=== PATIENT | male | born 1945 | race Caucasian/White ===

== ENCOUNTER → 2016-06-06 | Outpatient (CLI) | payer OTHER ==
[~2016-06-06] MED LIST: ALL300 PO; ASPI-435 PO; CINN1CAP2 PO; ELQ25 PO; FELO10TA PO; FENO67CA2 PO; ISOS30TA3 PO; LISI40TA PO; LPR100 PO; LVMIPEN SC; MULT-845 PO; NSP/500 PO; OMEG10007 PO; VITA1TAB4 PO; vitamin e PO
[2016-06-06 12:43] LABS: HEMATOCRIT 38.5 % (42-52); MEAN PLATELET VOLUME 10.9 fL (7.4-10.4); PLATELET COUNT 143 K/uL (130-400); RED BLOOD COUNT 4.23 M/uL (4.7-6.1); WHITE BLOOD COUNT 4.54 K/uL (4.8-10.8)
[2016-06-06 13:04] LABS: BLOOD UREA NITROGEN 44 mg/dl (7-18); BUN/CREATININE RATIO 20.9 (10-20); CALCIUM 9.1 mg/dl (8.5-10.1); CARBON DIOXIDE 23 mmol/L (21-32); CHLORIDE 106 mmol/L (98-107); GLUCOSE 106 mg/dl (70-99); PHOSPHORUS 3.3 mg/dl (2.5-4.9); POTASSIUM 4.2 mmol/L (3.5-5.1); SODIUM 142 mmol/L (136-145)
[2016-06-06 13:13] LABS: URINE APPEARANCE CLEAR (CLEAR); URINE BILIRUBIN NEG (NEG); URINE COLOR YELLOW; URINE NITRITE NEG (NEG); URINE PH 5.5 (4.5-7.5); URINE SPECIFIC GRAVITY 1.012 (1.000-1.030); UROBILINOGEN NEG (NEG)
[2016-06-06 13:21] LABS: MANUAL MICROSCOPIC REQUIRED? NO; REVIEW REQ? NO
[2016-06-06 13:33] LABS: URINE PROTIEN/CREAT RATIO 1.3 (0-0.2); URINE TOTAL PROTEIN 127.3 mg/dl (0-11.9)
== END | disposition home or self-care (01) ==
LOC: C.LABPVFM 07:58
PROVIDERS: ATTEND Internal Medicine Nephrology
DX: N18.3 Chronic kidney disease, stage 3 (moderate) (principal); R80.9 Proteinuria, unspecified; N25.81 Secondary hyperparathyroidism of renal origin; D63.8 Anemia in other chronic diseases classified elsewhere

== ENCOUNTER 2016-06-23 06:09 | Observation (INO) | payer OTHER ==
[~2016-06-23] VITALS: Ht 172.7 cm; Wt 116.8 kg
[~2016-06-23 06:09] MED LIST changes: +CEFAZOLIN 1000MG/55 ML D5W IV SCH; -CINN1CAP2 PO; -ELQ25 PO; -FENO67CA2 PO; -ISOS30TA3 PO; -LISI40TA PO; -OMEG10007 PO; -VITA1TAB4 PO; -vitamin e PO
[2016-06-23] MEDS ORDERED: LISI40TA PO (06:55)
[2016-06-23] MEDS ORDERED: OMEG10007 PO (06:55)
[2016-06-23] MEDS ORDERED: CINN1CAP2 PO (06:55)
[2016-06-23] MEDS ORDERED: vitamin e PO (06:55)
[2016-06-23] MEDS ORDERED: FENO67CA2 PO (06:55)
[2016-06-23] MEDS ORDERED: ISOS30TA3 PO (06:55)
[2016-06-23 07:00] VITALS: BP 109/73; PULSE 50; TEMP 36.7; O2SAT 98; Ht 172.7 cm; Wt 116.8 kg
[2016-06-23] MEDS ORDERED: LIDOCAINE HCL 1% 20 ML VIAL ONE (07:29)
[2016-06-23] MEDS ORDERED: BACITRACIN 50000 UNIT VIAL ONE (07:29)
[2016-06-23] MEDS ORDERED: BACITRACIN OINT 0.9 GM PKT ONE (07:29)
[2016-06-23] MEDS ORDERED: MIDAZOLAM HCL 5 MG/ML 1 ML VIAL ONE ×2 (08:04→09:43)
[2016-06-23] MEDS ORDERED: FENTANYL CITRATE INJ 50 MCG/1 ML 2 ML VIAL ONE ×2 (08:04→09:17)
--- NOTE | 2016-06-23 08:07 | History & Physical Bridge Note ---
H&P Re-Evaluation Bridge Note: I have examined the patient, reviewed the History & Physical and in the interval since the performance of the History & Physical I have noted the following changes of clinical significance: No changes noted. I reviewed the indications, procedure, risks and alternatives of dual pacer implant and loop explant with patient and his son(?) and they understand and agree to proceed. Consent obtained.
--- NOTE | 2016-06-23 08:07 | Procedure Note ---
Pre-Mod Sedation Assessment General Date of Moderate Sedation: Jun 23, 2016. Vital Signs: Vital Signs Past 12 Hours Date Time Temp Pulse Resp B/P Pulse Ox O2 Delivery O2 Flow Rate FiO2 06/23/16 07:00 36.7 50 20 109/73 98 Room Air Review Cardiovascular: regular rate, rhythm Abdomen: normal bowel sounds Lungs: lungs clear Pre-Sedation Airway Assessment Oral Cavity: Dentures Smoking Status: Never Smoker Procedure Planning Contraindications-for Mod Sed: None Yes Notes The planned sedation has been discussed with the patient and consent obtained. I have identified the patient, determined the appropriateness of sedation and have assessed the patient immediately prior to the procedure. All medicine(s) and interventions are by my order.
[2016-06-23] MEDS ORDERED: KEFZOL SPECIAL PROCEDURE STOCK 1 GM ADDVIAL IV ONE (08:20)
--- NOTE | 2016-06-23 11:13 | Procedure Note ---
Post-Mod Sedation Assessment General Date of Moderate Sedation Jun 23, 2016. Vital Signs: Vital Signs Past 12 Hours Date Time Temp Pulse Resp B/P Pulse Ox O2 Delivery O2 Flow Rate FiO2 06/23/16 10:45 50 16 134/74 95 Room Air 06/23/16 10:30 50 16 131/69 95 Room Air 06/23/16 07:00 36.7 50 20 109/73 98 Room Air Review - Discharge Criteria Vital Signs Stable: Yes Alert/Oriented/Conversant: Yes Returned to Baseline Mental St: Yes Nausea Absent/Minimal: Yes Pain/Discomfort/Absent/Minimal: Yes Normal/Baseline Respirations: Yes Active Bleeding?: No
[2016-06-23 11:15] VITALS: BP 132/67; PULSE 49; TEMP 36.4; O2SAT 95
[2016-06-23] MEDS ORDERED: KETOROLAC TROMETHAMINE 10 MG TAB PO PRN (11:15)
[2016-06-23] MEDS ORDERED: ACETAMINOPHEN 325 MG TAB PO PRN (11:15)
--- NOTE | 2016-06-23 11:23 | Cardiology Procedure Brief Nt ---
Preliminary Cardiology Note Procedure Date Jun 23, 2016. Pre-Procedure Diagnosis Mobitz 2 AV block Post-Procedure Diagnosis same Procedure(s) Performed Left subclavian venogram Dual chamber pacemaker implantation Loop recorder explantation Fast Food Attendant Dr. Prieto Licensed Psychologist Manager(s) none Estimated Blood Loss 50 cc Preliminary Findings Difficult access, required left subclavian venogram. Good lead position and measurements. Recommendations Monitor overnight Specimens Old loop recorder, return to Medtronic Anesthesia local with sedation Complication(s) None Disposition PCU
[2016-06-23 11:30] VITALS: BP 129/67; PULSE 50; O2SAT 95
[2016-06-23] MEDS ORDERED: ALLOPURINOL 300 MG TAB PO SCH (12:00)
[2016-06-23] MEDS ORDERED: IV FLUIDS COMPLETED PRN (12:15)
[2016-06-23] MEDS ORDERED: DEXTROSE 50% 50 ML SYR IV PRN (12:30)
[2016-06-23] MEDS ORDERED: GLUCOSE 10 TABS/TUBE PO PRN (12:30)
[2016-06-23] MEDS ORDERED: GLUCOSE 40% GEL 15 GM TUBE PO PRN (12:30)
[2016-06-23] MEDS ORDERED: GLUCAGON FOR INJ 1 MG VIAL SQ PRN (12:30)
[2016-06-23] MEDS: CEFAZOLIN IV 1,000 MG in DEXTROSE 5% 50ML 50 ML IV SCH ×2 (14:06→22:13)
--- NOTE | 2016-06-23 14:06 | OPERATIVE REPORT ---
DATE OF OPERATION: 06/23/2016 PREOPERATIVE DIAGNOSIS: 1. Mobitz II AV block. 2. Syncope. POSTOPERATIVE DIAGNOSIS: Same. PROCEDURE: 1. Left subclavian venogram. 2. Dual chamber pacemaker implantation. 3. Loop recorder explantation. SURGEON: Adelfo Prieto M.D. ANESTHESIA: Local with sedation. HISTORY OF PRESENT ILLNESS: This is a 71-year-old male with a history of hypertension, hyperlipidemia, first degree AV block and a rate related bundle branch block. He also has a hypertrophic cardiomyopathy and had syncope in September 2015. With uncertainty as to the cause of his syncope and various possibilities a loop recorder was implanted. He had been doing well with no recurrent symptoms but on routine loop recorder interrogation was noted to have several pauses due to complete heart block lasting in 1 case 4 seconds and another 9 seconds. This was consistent with high grade AV block and therefore it was felt that he should have a pacemaker implanted. After obtaining informed consent for the procedure, he was brought to the laboratory on the morning of 06/23/2016 being NPO after midnight. He was identified in the laboratory, prepped and draped in standard sterile manner for a left-sided pacemaker implantation. The left prepectoral region was anesthetized with 1% lidocaine local anesthetic and left subclavian venipuncture was attempted. This was unsuccessful; however, therefore dye was injected via the left arm IV site to opacify the left subclavian vein. Despite that and what appeared to be an appropriate angle for venipuncture the left subclavian artery was entered. Pressure was held for 15 minutes with no evidence of bleeding or hematoma. The area was infiltrated with 1% lidocaine local anesthetic and a 6 cm incision was made parallel to the left clavicle and 2 cm below it and carried down to the anterior pectoralis fascia. A pacemaker pocket was formed by blunt dissection anterior to the pectoralis fascia and a bacitracin-soaked sponge (50,000 units in 50 mL normal saline solution) was placed in the pocket. Venopuncture was then performed through the implant site successfully and a guidewire placed through the left subclavian vein into the superior vena cava. An 8-Malaysian Medtronic lead introducer was placed over the guidewire into the left subclavian vein, the dilator and guidewire were removed and a bipolar active fixation steroid-tipped ventricular lead was advanced through the introducer into the superior vena cava. The guidewire was placed through the introducer and introducer stripped away from lead and guidewire. Using a curved stylette, the ventricular lead was advanced through the right ventricular outflow tract into the pulmonary artery and then using a straight stylette was positioned in the right ventricular apex. Once in position, the ventricular pacing threshold was evaluated in bipolar configuration at a pulse width of 0.5 milliseconds. The final ventricular pacing threshold was 1.1 volts with a current of 1.4 milliamp, 5-volt lead impedance was 1077 ohms and R-waves were sensed at 4.5 millivolts. Diaphragmatic pacing was not present with a 10 volt bipolar output. Once the ventricular lead was in position another 8-[place]aysian Medtronic lead introducer was placed over the guidewire into the left subclavian vein, the dilator and guidewire were removed and a bipolar active fixation steroid-tipped atrial lead was advanced through the introducer into the superior vena cava. The guidewire was placed through the introducer and introducer stripped away from lead and guidewire. The lead was then positioned in the region of the atrial appendage and screw extended fixing the lead in position. Atrial pacing threshold was evaluated in bipolar configuration at a pulse width of 0.5 milliseconds. Final atrial pacing threshold was 1.4 volts with a current of 2.3 milliamp, 5-volt lead impedance was 673 ohms and P-waves were sensed at 1.7 millivolts. Diaphragmatic pacing was not present with a 10 volt bipolar output. Once both leads were in position, they were attached to the anterior pectoralis fascia using 2 sutures of 2-0 silk around each lead collar. The bacitracin-soaked sponge was removed from the pocket, the guidewire was removed from the left subclavian vein and hemostasis was obtained. The pacemaker (Medtronic Advisa DR) was attached to the leads and found to be functioning normally. It was placed in the pocket with the leads coiled beneath it and the incision was closed with a running double subcutaneous closure of 3-0 Vicryl followed by running subcuticular skin closure of 4-0 Vicryl. Bacitracin ointment was placed on incision and a pressure dressing applied. The incision overlying the loop recorder was anesthetized with 1% lidocaine local anesthetic and a 2 cm incision was made through the old implant scar and carried down to the loop recorder. The loop recorder was removed from the pocket. This incision was closed with a subcutaneous closure of 4-0 Vicryl followed by a running subcuticular skin closure of 4-0 Vicryl. Steri-Strips were applied and a dressing was applied. The patient tolerated the procedure well, there were no complications and estimated blood loss was 50 mL. The patient was transferred to the telemetry unit for monitoring. The atrial lead is a Medtronic model 5076, serial #[id number] and is a bipolar active fixation steroid-tipped MRI compatible lead. The ventricular lead is a Medtronic model 5076, serial #[id number] and is a bipolar active fixation steroid-tipped MRI compatible lead. Pacemaker is a Medtronic Advisa DR MRI SureScan model A2DR01, serial # [id number]. The pacemaker was reprogrammed in the laboratory to final settings. PREM
--- NOTE | 2016-06-23 14:29 | OPERATIVE REPORT ---
DATE OF OPERATION: 06/23/2016 ADDENDUM The atrial lead is a Medtronic model 5076, serial #[id number] and is a bipolar active fixation steroid-tipped MRI compatible lead. The ventricular lead is a Medtronic model 5076, serial #[id number] and is a bipolar active fixation steroid-tipped MRI compatible lead. Pacemaker is a Medtronic Advisa DR MRI SureScan model A2DR01, serial # [id number]. The pacemaker was reprogrammed in the laboratory to final settings. I attest to the content of the Intraoperative Record and any orders documented therein. Any exceptio ns are noted below.
[2016-06-23 15:54] VITALS: BP 131/63; PULSE 54; TEMP 36.9; O2SAT 96
[2016-06-23 19:00] VITALS: BP 136/68; PULSE 52; TEMP 36.4; O2SAT 96
[2016-06-23] MEDS: METOPROLOL TARTRATE 100 MG TAB PO SCH (21:00)
[2016-06-23] MEDS ORDERED: ASPIRIN 81 MG ECTAB PO SCH (21:00)
[2016-06-23] MEDS ORDERED: INSULIN DETEMIR FLEXPEN/FLEX TOUCH 100 UNITS/ML 3ML SC SCH (21:00)
[2016-06-23 22:55] VITALS: BP 166/91; PULSE 57; TEMP 37; O2SAT 95
[2016-06-24 03:10] VITALS: BP 193/79; PULSE 50; TEMP 36.5; O2SAT 98
[2016-06-24] MEDS: CEFAZOLIN IV 1,000 MG in DEXTROSE 5% 50ML 50 ML IV SCH (06:12)
--- NOTE | 2016-06-24 06:52 | DIAGNOSTIC IMAGING REPORT ---
CHEST 2 VIEWS ROUTINE CLINICAL HISTORY: Chest x-ray status post pacemaker placement COMPARISON STUDY: 09/07/2015 FINDINGS: There is a left subclavian dual-chamber central venous pacemaker. Electrodes position is unremarkable. The heart is mildly enlarged. There is no failure. There is no focal pulmonary consolidation. There are no pleural effusions. There is no pneumothorax.[ IMPRESSION: No evidence of pneumothorax status post placement of a left subclavian dual-chamber central venous pacemaker Electronically signed by: Mayito Bolton M.D. 06/24/2016 6:50 AM Dictated Date/Time: 06/24/2016 6:50 AM
[2016-06-24 07:32] VITALS: BP 158/66; PULSE 48; TEMP 37; O2SAT 96
[2016-06-24] MEDS: METOPROLOL TARTRATE 100 MG TAB PO SCH (08:19)
[2016-06-24 08:21] VITALS: PULSE 60
--- NOTE | 2016-06-24 08:35 | Discharge Instructions ---
Discharge Instructions Date of Service Jun 24, 2016. Admission Mobitz 2 AV block Discharge Discharge Diagnosis / Problem: Loop recorder explantation and dual-chamber pacemaker implantation Discharge Goals Goal(s): Improve disease control Activity Recommendations Activity Limitations: as noted below ACTIVITY RECOMMENDATIONS: * Do not raise affected arm over head for 2 weeks. SPECIAL CARE INSTRUCTIONS: * If bleeding occurs, apply direct pressure to area for 5 minutes. * Call your doctor if you have severe pain, fever, drainage or bleeding at site. * Keep dressing on and dry for 48 hours then remove. * Keep any scheduled doctor's appointment. * Implant Card - hand held device with website information given. SKIN IRRITATION: * You may experience some redness and/or swelling in the area where radiation was administered. If any skin irritation occurs, please contact your family physician. FOLLOW UP VISIT: 06/28/16 @ 10:00 am . Current Hospital Diet Patient's current hospital diet: AHA Diet (Heart Healthy), Diabetes Type 2 Diet Discharge Diet Recommended Diet: AHA Diet (Heart Healthy), Diabetes Type 2 Diet Pending Studies Studies pending at discharge: no Medical Emergencies . Who to Call and When: Medical Emergencies: If at any time you feel your situation is an emergency, please call 911 immediately. . Non-Emergent Contact Non-Emergency issues call your: Assistant Golf Course Superintendent . . "Provider Documentation" section prepared by Monique Jasmine. VTE Core Measure Inpt VTE Proph given/why not?: Treatment not indicated
[2016-06-24] MEDS ORDERED: CEROVITE ADV FORMULA TAB PO SCH (09:00)
[2016-06-24] MEDS ORDERED: LISINOPRIL 40 MG TAB PO SCH (09:00)
[2016-06-24] MEDS ORDERED: ISOSORBIDE MONONITRATE 30 MG TABCR PO SCH (09:00)
[2016-06-24] MEDS ORDERED: FELODIPINE 5 MG TABCR PO SCH (09:00)
--- NOTE | 2016-06-24 09:50 | Discharge Summary ---
Discharge Summary Admission Date: Jun 23, 2016 at 11:19 Discharge Date: Jun 24, 2016 Discharge Disposition: Home Primary Diagnosis: Mobitz 2 AV block Secondary Diagnoses/Problems: Medical Problems: (1) Elevation of cardiac enzymes Status: Acute (2) Syncope Status: Acute Procedures: Left subclavian venogram Dual chamber pacemaker implantation Loop recorder explantation Discharge Instructions Last Recorded Wt (Kilograms): 116.800 Activity Recommendations: limitations as noted below Diet At Discharge: low sodium, low cholesterol, diabetes diet Allergies: Coded Allergies: No Known Allergies (Unverified , `, 06/23/16) Additional Instructions: ACTIVITY RECOMMENDATIONS: * Do not raise affected arm over head for 2 weeks. SPECIAL CARE INSTRUCTIONS: * If bleeding occurs, apply direct pressure to area for 5 minutes. * Call your doctor if you have severe pain, fever, drainage or bleeding at site. * Keep dressing on and dry for 48 hours then remove. * Keep any scheduled doctor's appointment. * Implant Card - hand held device with website information given. SKIN IRRITATION: * You may experience some redness and/or swelling in the area where radiation was administered. If any skin irritation occurs, please contact your family physician. FOLLOW UP VISIT: Keep any scheduled doctor appointments. Special Care: Call your doctor if: * Temperature above 101 degrees * Pain not relieved by pain medicine ordered * There is increased drainage or redness from any incision * You have any unanswered questions or concerns. Avoid all tobacco products. If you need help to stop smoking, call [place]'s FREE QUITLINE at . This is a free call. Admission HPI This is a 71-year-old male with a history of hypertension, hyperlipidemia, first degree AV block and a rate related bundle branch block. He also has a hypertrophic cardiomyopathy and had syncope in September 2015. With uncertainty as to the cause of his syncope and various possibilities a loop recorder was implanted. He had been doing well with no recurrent symptoms but on routine loop recorder interrogation was noted to have several pauses due to complete heart block lasting in 1 case 4 seconds and another 9 seconds. This was consistent with high grade AV block and therefore it was felt that he should have a pacemaker implanted. Admission Physical Exam General: Patient is in no acute distress. HEENT: Head is atraumatic, normocephalic. EOMs intact. Sclera anicteric. Facies symmetric. No perioral cyanosis. Neck: No thyromegaly, adenopathy, or JVD. Carotid upstrokes +2 bilaterally without obvious bruits. Chest and lungs: Clear to auscultations are all lung escoto, no wheezes, rales, or rhonchi. CVS: S1 and S2 are regular with a very faint grade 1/6 basal systolic murmur. No diastolic murmurs appreciated. No gallops or rubs. PMI is nondisplaced. No lifts, heaves, or thrills. No abdominal aortic or renal bruits. Abdominal exam: Bowel sounds present. No masses, organomegaly, or tenderness. Extremities: No clubbing or cyanosis. Trace pedal edema noted bilaterally. Intact posterior tibial and radial pulses bilaterally. Neurologic exam: Patient is awake, alert, and oriented. Pleasant and cooperative. He is questions appropriately. Speech is clear. Normal movement in all 4 extremities. Gait pattern is unremarkable. Hospital Course Mr. Larkin is a 71-year-old male with high grade AV block and sick sinus syndrome who underwent loop recorder explantation and dual-chamber pacemaker implantation on 06/23/[address] Prieto. He tolerated the procedure well. Device check the following day showed excellent sensing and pacing characteristics. CXR showed good lead placement and no evidence of pneumothorax. He was deemed stable for discharge home on 06/24/16. He will have follow-up in 4 days for an incision check and in 1 month for a device check. Total time spent on discharge = This includes examination of the patient, discharge planning, medication reconciliation, and communication with other providers.
[2016-06-24 10:51] VITALS: BP 158/66; PULSE 60; TEMP 37; O2SAT 96
[2016-07-05] MEDS ORDERED: ELQ25 PO (10:40)
== END 2016-06-24 11:13 | disposition home or self-care (01) ==
LOC: C.ACU 06:09 → C.2T 11:19
PROVIDERS: ADMIT Internal Medicine Cardiovascular Disease; ATTEND Internal Medicine Cardiovascular Disease
DX: I44.1 Atrioventricular block, second degree (principal); R00.1 Bradycardia, unspecified; I42.1 Obstructive hypertrophic cardiomyopathy; I45.10 Unspecified right bundle-branch block; R55 Syncope and collapse; I10 Essential (primary) hypertension; D63.8 Anemia in other chronic diseases classified elsewhere; E11.49 Type 2 diabetes mellitus with other diabetic neurological complication; E78.00 Pure hypercholesterolemia, unspecified; E11.3599 Type 2 diabetes mellitus with proliferative diabetic retinopathy without macular edema, unspecified eye; N25.81 Secondary hyperparathyroidism of renal origin; N18.3 Chronic kidney disease, stage 3 (moderate); Z95.818 Presence of other cardiac implants and grafts; E55.9 Vitamin D deficiency, unspecified

== ENCOUNTER 2016-07-04 17:37 | Inpatient (IN) | payer OTHER ==
[~2016-07-04] VITALS: Ht 172.7 cm; Wt 121.7 kg
[~2016-07-04 17:37] MED LIST changes: -ELQ25 PO; -VITA1TAB4 PO
[2016-07-04] MEDS ORDERED: ACETAMINOPHEN 325 MG TAB PO PRN (20:00)
[2016-07-04] MEDS ORDERED: ALUMINUM/MAGNESIUM/SIMETH (MAALOX MAX) 30 ML UDC PO PRN (20:00)
[2016-07-04] MEDS ORDERED: ONDANSETRON INJ 2 MG/ML 2 ML VIAL IV PRN (20:00)
[2016-07-04] MEDS ORDERED: POLYETHYLENE (MIRALAX) 17 GM PACK PO PRN (20:00)
[2016-07-04] MEDS ORDERED: MAGNESIUM HYDROXIDE SUSP 30 ML UDC PO PRN (20:00)
[2016-07-04] MEDS ORDERED: VITA1TAB4 PO (20:12)
[2016-07-04] MEDS ORDERED: LORAZEPAM 0.5 MG TAB PO PRN (20:15)
[2016-07-04 20:21] LABS: HEMATOCRIT 35.8 % (42-52); MEAN CELL VOLUME 88.2 fL (80-100); MEAN CORPUSCULAR HEMOGLOBIN 30.8 pg (25-34); MEAN CORPUSCULAR HGB CONC 34.9 g/dl (32-36); MEAN PLATELET VOLUME 10.5 fL (7.4-10.4); PLATELET COUNT 149 K/uL (130-400); RED BLOOD COUNT 4.06 M/uL (4.7-6.1); WHITE BLOOD COUNT 5.19 K/uL (4.8-10.8)
[2016-07-04] MEDS ORDERED: HEPARIN 25000 UNIT/500 ML D5W ONE (20:24)
[2016-07-04 20:30] LABS: PARTIAL THROMBOPLASTIN RATIO 1.2; PROTHROMBIN TIME (PATIENT) 10.9 SECONDS (9.0-12.0)
[2016-07-04] MEDS ORDERED: HydrALAZINE HCL 20 MG/ML VIAL IV PRN (20:30)
[2016-07-04 20:39] LABS: CREATININE 2.2 mg/dl (0.60-1.40); POTASSIUM 4.2 mmol/L (3.5-5.1)
[2016-07-04 20:49] LABS: COMPLETE YES; EOSINOPHIL % 6.1 %; LYMPH ABS # 0.81 K/uL (1.2-3.4); LYMPHOCYTE % 15.7 %; NEUTROPHILS % 57.3 %; VARIANT LYM ABS # 0.59 K/uL; VARIANT LYMPHOCYTE % 11.3 %
[2016-07-04] MEDS ORDERED: INSULIN DETEMIR FLEXPEN/FLEX TOUCH 100 UNITS/ML 3ML SC SCH (21:00)
[2016-07-04] MEDS ORDERED: GLUCOSE 40% GEL 15 GM TUBE PO PRN (21:00)
[2016-07-04] MEDS ORDERED: DEXTROSE 50% 50 ML SYR IV PRN (21:00)
[2016-07-04] MEDS ORDERED: GLUCAGON FOR INJ 1 MG VIAL SQ PRN (21:00)
[2016-07-04] MEDS ORDERED: GLUCOSE 10 TABS/TUBE PO PRN (21:00)
[2016-07-04 21:07] VITALS: BP 235/98; PULSE 81; TEMP 36.6; O2SAT 95
[2016-07-04 21:15] VITALS: BP 215/94
--- NOTE | 2016-07-04 21:17 | HISTORY & PHYSICAL EXAMINATION ---
DATE OF ADMISSION: 07/04/2016 CHIEF COMPLAINT: Swollen left arm. ADMITTING DIAGNOSIS: Acute left subclavian vein thrombosis. He has a recent permanent pacemaker implantation, day of discharge 06/24/2016. HISTORY OF PRESENT ILLNESS: Mr. Larkin is a 71-year-old male, who had a syncopal episode. The patient had a loop recorder implanted and was found to have episodes of pauses requiring him to have a pacemaker. The patient also suffers from hypertrophic obstructive cardiomyopathy. The patient was diagnosed with sick sinus syndrome and underwent pacemaker implantation of his left upper chest on 06/23/2016 and discharged on 06/24/2016. The patient was doing fine, when he developed continued swelling of his left upper extremity. He saw his family physician who referred him for an outpatient ultrasound which confirmed a DVT in the left upper extremity involving the subclavian and axillary veins. The patient was recommended for intake to our facility after discussing the case with the on-call paper bag press operator The patient is otherwise resting well, has no chest pain, pressure or shortness of breath. PAST MEDICAL HISTORY: As mentioned; the sick sinus syndrome, the pacemaker implantation right bundle branch block, hypertension, diabetes type 2 with retinopathy, chronic kidney disease stage 2, gout, low back pain and dyslipidemia. MEDICATIONS: Aspirin 81 a day, isosorbide mononitrate 30 a day, fenofibrate 67 a day, felodipine 10 a day, lisinopril 40 a day, metoprolol tartrate 100 b.i.d., allopurinol 300 a day, Levemir 49 units subQ q.p.m., fish oil, cinnamon, vitamin and Multi-Monique. SOCIAL HISTORY: He does not smoke and does not drink, never has. FAMILY HISTORY: Positive for coronary artery disease and diabetes. REVIEW OF SYSTEMS: Ten systems were reviewed and are negative unless listed above. Really, his only complaints are swelling and minor discomfort in his left upper extremity. PHYSICAL EXAMINATION: GENERAL: He is a pleasant gentleman. He is in no acute distress. VITAL SIGNS: Showed a temperature of 36.6, pulse 79, respiration rate O2 sat 95 on room air. HEENT: PERRL, EOMI. Oropharynx is clear. NECK: Without lymphadenopathy, JVD or thyromegaly. HEART: Regular without murmurs, clicks, rubs or gallops. CHEST: Lungs are clear without wheezes or crackles. His incision site is well-healed and the pacemaker is nontender. ABDOMEN: Normoactive bowel sounds, soft, nontender and nondistended. No organomegaly. EXTREMITIES: His left upper extremity is markedly swollen; he cannot see his knuckles when he flexes his fist. He can approximate his hand. He has got no paresthesias to his distal fingers. His capillary refill is intact. Without cyanosis, clubbing or edema to the lower extremities with exception of the left upper as mentioned above. SKIN: Without lesions, growths, bruises or bleeding. NEUROLOGIC: Awake, alert and appropriate. Cranial nerves II-XII are intact. At the time of admission his laboratories are pending. ASSESSMENT: A 71-year-old male, here with a pacemaker associated left subclavian deep vein thrombosis. PLAN: The patient will be anticoagulated with heparin. The patient discussed that his his Xarelto, but it is expensive, he uses coupons. Certainly, the duration of anticoagulation in this case is not clear-cut given that typically upper extremity deep venous thrombosis are associated with a line which is removed, which his pacemaker leads cannot be. Subsequently, we will discuss this with cardiology to determine the best agent and duration of therapy for post-hospital stay. For his coronary artery disease; this was stable. At this time we will continue isosorbide, lisinopril, felodipine and metoprolol. For his dyslipidemia, fenofibrate will be maintained. For his diabetes, Levemir 49 units subQ at bedtime with a diabetic diet and insulin sliding scale will be continued. We will hold his vitamins. DVT prevention is full anticoagulation. The patient is a full code. MTDD
[2016-07-04] MEDS ORDERED: HEPARIN 25,000 UNIT/500ML D5W 500 ML IV PRN (21:45)
[2016-07-04 22:00] VITALS: BP 191/74
[2016-07-04] MEDS ORDERED: INFLUENZA ADMINISTRATION CHARGE ONE (22:00)
[2016-07-04] MEDS ORDERED: PNEUMOCOCCAL ADMINISTRATION CHARGE ONE (22:00)
[2016-07-04] MEDS: ASPIRIN 81 MG ECTAB PO SCH ×2 (22:00→22:32)
[2016-07-04] MEDS ORDERED: INFLUENZA VIRUS QUAD VACCINE 0.5 ML SYR IM. ONE (22:00)
[2016-07-04] MEDS ORDERED: PNEUMOCOCCAL POLYSACCHARIDES 25 MCG/0.5 ML VIAL/SYR IM. ONE (22:00)
--- NOTE | 2016-07-04 22:15 | Progress Note ---
Progress Note Date of Service Jul 04, 2016. Progress Note Received call about patient's blood pressure with systolic of 230 Went to see the patient at bedside. He remains asymptomatic. Left arm swelling noted- admitted for subclavian DVT. Patient denies Chest pain, shortness of breath, headaches, numbness/tingling, weakness of extremities etc. Exam: General: Awake, alert, no acute distress Heart: RRR, S1S2 present Lungs: CTAB, no wheezing rales or ronchi Neuro: AAOx3, no gross motor/sensory deficits. Ext: Left UE swelling Given dose of hydralazine and night time dose of metoprolol. Received another call a few hours later that B/P had not improved much. Was going to transfer patient to tele shortly after, however, patients b/p had improved. Stable for now, will follow.
[2016-07-04 22:25] VITALS: BP 215/94; PULSE 81; TEMP 36.6; O2SAT 95; Ht 172.7 cm; Wt 121.7 kg
[2016-07-04] MEDS: INSULIN ASPART 100 UNITS/ML 3 ML PEN SC SCH ×2 (22:30→22:38)
[2016-07-04] MEDS: METOPROLOL TARTRATE 100 MG TAB PO SCH (22:32)
--- NOTE | 2016-07-04 23:33 | EMERGENCY ROOM VISIT NOTE ---
History Report prepared by Arben: Estefania Singer Under the Supervision of: Dr. Donal Molina M.D. First contact with patient: 19:18 Chief Complaint: ABNORMAL DIAGNOSTIC TESTING Stated Complaint: ACUTE LT UPPER EXTREMITY DVT- ABN ULTRASOUND History of Present Illness The patient is a 71 year old male who presents to the Emergency Room with complaints of an abnormal ultrasound result that was noted DIELECTRIC TESTER. He saw his PCP this morning and they ordered an ultrasound of his left upper extremity. The patient had an ultrasound done at 1600 that revealed a blood clot in the area of his left shoulder. The patient had a pacemaker placed on June [address] Prieto - Cardiology. He is also experiencing left are edema, which started 2- 3 days ago. Pt denies LOC, headache, fevers, chills, diaphoresis, visual changes , neck pain, chest pain, breathing difficulties, nausea, vomiting, abdominal pain, back pain, melena, hematochezia, urinary symptoms, numbness, weakness, lymphadenopathy, rash, or other complaints. The patient states that the only pain that he experienced was pain in his left shoulder when he would rest his left arm on the bar counter at home. The patient is not on any blood thinners. Source of History: patient Onset: DIELECTRIC TESTER Position: shoulder (left) Quality: other (abnormal ultrasound results) Note: left arm edema Review of Systems See HPI for pertinent positives and negatives. A total of ten systems were reviewed and were otherwise negative. Past Medical & Surgical Medical Problems: (1) Cardiomyopathy (2) Chronic kidney disease (CKD) stage G3b/A1, moderately decreased glomerular filtration rate (GFR) between 30-44 mL/min/1.73 square meter and albuminuria creatinine ratio less than 30 mg/g (3) Degenerative disc disease (4) Diabetes (5) Hypertension (6) Mobitz (type) II atrioventricular block (7) Subclavian vein thromboembolism, acute (8) Syncope and collapse Family History Patient reports no known family medical history. Social History Smoking Status: Never Smoker Marital Status: Housing Status: lives with significant other Occupation Status: retired Current/Historical Medications Scheduled Allopurinol (Allopurinol), 300 MG PO DAILY@1200 Aspirin (Aspirin 81), 81 MG PO HS Cinnamon (Cinnamon), 500 MG PO DAILY Felodipine (Plendil Er), 10 MG PO DAILY Fenofibrate (Tricor), 67 MG PO DAILY Fish Oil ([place]-3), 1 CAP PO DAILY Insulin Detemir (Levemir Flextouch), 49 UNITS SC QPM Isosorbide Mononitrate Ext Rel (Imdur Ext Rel), 1 TAB PO DAILY Lisinopril (Zestril), 40 MG PO DAILY Metoprolol Tartrate (Metoprolol Tartrate), 100 MG PO BID Multiple Vitamins W/ Minerals (Centrum Silver Adult 50+), 1 TAB PO DAILY Vitamin E (Vitamin E), 400 MG PO DAILY Allergies Coded Allergies: No Known Allergies (Unverified , `, 07/04/16) Physical Exam Vital Signs Date Time Temp Pulse Resp B/P Pulse Ox O2 Delivery O2 Flow Rate FiO2 07/04/16 19:53 69 18 181/95 96 Room Air 07/04/16 19:53 95 Room Air 07/04/16 17:58 36.6 66 17 222/91 96 Room Air Physical Exam GENERAL: Awake, alert, well-appearing, in no distress HENT: Normocephalic, atraumatic. Oropharynx unremarkable. EYES: Normal conjunctiva. Sclera non-icteric. NECK: Supple. No nuchal rigidity. FROM. No JVD. RESPIRATORY: Clear to auscultation. CARDIAC: Regular rate, normal rhythm. Extremities warm and well perfused. Pulses equal. ABDOMEN: Soft, non-distended. No tenderness to palpation. No rebound or guarding. No masses. RECTAL: Deferred. MUSCULOSKELETAL: Chest examination reveals no tenderness. Well-healing incision in left upper chest. The back is symmetrical on inspection without obvious abnormality. There is no CVA tenderness to palpation. No joint edema. UPPER EXTREMITIES: Left upper extremity edema with left greater than right. LOWER EXTREMITIES: Calves are equal size bilaterally and non-tender. No edema. No discoloration. NEURO: Normal sensorium. No sensory or motor deficits noted. SKIN: No rash or jaundice noted. Medical Decision & Procedures Laboratory Results 07/04/16 19:48 Red Blood Count 4.06, Mean Corpuscular Volume 88.2, Mean Corpuscular Hemoglobin 30.8, Mean Corpuscular Hemoglobin Concent 34.9, Mean Platelet Volume 10.5 07/04/16 19:48 Test 07/04/16 19:48 White Blood Count 5.19 K/uL (4.8-10.8) Red Blood Count 4.06 M/uL (4.7-6.1) Hemoglobin 12.5 g/dL (14.0-18.0) Hematocrit 35.8 % (42-52) Mean Corpuscular Volume 88.2 fL (80-100) Mean Corpuscular Hemoglobin 30.8 pg (25-34) Mean Corpuscular Hemoglobin Concent 34.9 g/dl (32-36) Platelet Count 149 K/uL (130-400) Mean Platelet Volume 10.5 fL (7.4-10.4) RDW Standard Deviation 42.6 fL (36.4-46.3) RDW Coefficient of Variation 13.2 % (11.5-14.5) Neutrophils % (Manual) 57.3 % Lymphocytes % (Manual) 15.7 % Variant Lymphocytes % (manual) 11.3 % Monocytes % (Manual) 9.6 % Eosinophils % (Manual) 6.1 % Neutrophils # (Manual) 2.97 K/uL (1.4-6.5) Total Absolute Neutrophils 2.97 K/uL (1.4-6.5) Lymphocytes # (Manual) 0.81 K/uL (1.2-3.4) Absolute Variant Lymphocytes 0.59 K/uL Total Absolute Lymphocytes 1.40 K/uL (1.2-3.4) Monocytes # (Manual) 0.50 K/uL (0.11-0.59) Eosinophils # (Manual) 0.32 K/uL (0-0.5) Red Blood Cell Morphology Unremarkable Prothrombin Time 10.9 SECONDS (9.0-12.0) Prothromb Time International Ratio 1.0 (0.9-1.1) Activated Partial Thromboplast Time 30.8 SECONDS (21.0-31.0) Partial Thromboplastin Ratio 1.2 Anion Gap 11.0 mmol/L (3-11) Est Creatinine Clear Calc Drug Dose 38.5 ml/min Estimated GFR () 33.4 Estimated GFR (Non- 28.9 BUN/Creatinine Ratio 22.0 (10-20) Calcium Level 9.0 mg/dl (8.5-10.1) Total Bilirubin 0.4 mg/dl (0.2-1) Aspartate Amino Transf (AST/SGOT) 30 U/L (15-37) Alanine Aminotransferase (ALT/SGPT) 20 U/L (12-78) Alkaline Phosphatase 82 U/L (45-117) Total Protein 8.4 gm/dl (6.4-8.2) Albumin 4.3 gm/dl (3.4-5.0) Globulin 4.1 gm/dl (2.5-4.0) Albumin/Globulin Ratio 1.0 (0.9-2) Folate > 24.00 ng/mL (>5.38) Laboratory results reviewed by me Medications Administered Medications (Trade) Dose Ordered Sig/[place] Route Start Time Stop Time Status Last Admin Dose Admin Heparin Sodium/ Dextrose 1 ea NOW STAT N/A 07/04/16 19:24 07/04/16 19:27 DC 07/04/16 20:19 1 EA ED Course 1921: The patient was evaluated in room A9. A complete history and physical exam was performed. 1923: Ordered Heparin Sodium/Dextrose 1 ea N/A 1937: Discussed the patient's case with Dr. Craig - Cardiology. He recommended starting the patient on Heparin. 1950: Discussed the patient's case with Dr. Norman - [facility]. The patient will be evaluated for further treatment and disposition. 1999: Upon reexamination, the patient was resting comfortably. I discussed the test results and treatment plan with him. The patient will be evaluated for further management. Medical Decision Triage Nursing notes reviewed. The patient's presentation and history were concerning for swelling in the left arm with an ultrasound showing a DVT. Etiologies such as DVT, joint effusion, infection, trauma, muscular, lymphedema , idiopathic, CHF, as well as others were entertained. The patient was evaluated. Clinically he was doing well. He was hemodynamically stable. He did not have any significant chest symptoms to consider pulmonary embolism. The patient had blood work obtained. His CBC and chemistry panel was unremarkable except for some mild renal insufficiency. Hypercoagulability labs were sent. The patient had a consultation placed with cardiology. They recommended IV heparin. The patient was started on IV heparin. Consultation was made with internal medicine. The patient was evaluated in the Emergency Room for further treatment. The chart was completed utilizing [employer] voice recognition software. Grammatical errors, random word insertions, pronoun errors, and incomplete sentences are an occasional consequence of this system due to software limitations, ambient noise, and hardware issues. Any formal questions or concerns about the content, text, or information contained within the body of this dictation should be directly addressed to the physician for clarification. Consults Time Called: 1925 Consulting Physician: Dr. Rafa García Cardiology Returned Call: 1937 Discussed the patient's case with Dr. Rafa Olmedo. He recommended starting the patient on Heparin. Additional Consults: Time Called: 1945 Consulted Physician: Dr. Ester HOUSTON Returned Call: 1950 Additional Comments: Discussed the patient's case with Dr. Ester HOUSTON. The patient will be evaluated for further treatment and disposition. Impression Primary Impression: DVT (deep venous thrombosis) Departure Information Dispostion Being Evaluated By Hospitalist Referrals Bree Anderson M.D. (PCP) Patient Instructions My [facility] Problem Qualifiers Primary Impression: DVT (deep venous thrombosis) DVT location: non-extremity vein Chronicity: acute Qualified Codes: I82.90 - Acute embolism and thrombosis of unspecified vein
[2016-07-05] VITALS: BP 171/81; PULSE 78; TEMP 36.7; O2SAT 94
[2016-07-05 01:18] VITALS: BP 169/92; PULSE 60; O2SAT 94
[2016-07-05 03:07] LABS: PARTIAL THROMBOPLASTIN RATIO 1.8
[2016-07-05 07:29] VITALS: BP 192/85; PULSE 67; TEMP 36.9; O2SAT 97
[2016-07-05] MEDS ORDERED: CEROVITE ADV FORMULA TAB PO SCH (08:00)
[2016-07-05] MEDS ORDERED: FELODIPINE 5 MG TABCR PO SCH (08:00)
[2016-07-05] MEDS ORDERED: LISINOPRIL 40 MG TAB PO SCH (08:00)
[2016-07-05] MEDS ORDERED: ISOSORBIDE MONONITRATE 30 MG TABCR PO SCH (08:00)
[2016-07-05] MEDS ORDERED: OMEGA-3 (PURIFIED FISH OIL) 1 GM CAP PO SCH (08:00)
[2016-07-05 08:21] LABS: HEMATOCRIT 35.9 % (42-52); MEAN CELL VOLUME 88.4 fL (80-100); MEAN CORPUSCULAR HEMOGLOBIN 30.5 pg (25-34); MEAN CORPUSCULAR HGB CONC 34.5 g/dl (32-36); MEAN PLATELET VOLUME 10.7 fL (7.4-10.4); PLATELET COUNT 143 K/uL (130-400); RED BLOOD COUNT 4.06 M/uL (4.7-6.1); WHITE BLOOD COUNT 5.18 K/uL (4.8-10.8)
[2016-07-05] MEDS ORDERED: HydrALAZINE HCL 20 MG/ML VIAL IV PRN (08:30)
[2016-07-05 08:40] LABS: PARTIAL THROMBOPLASTIN RATIO 1.9
[2016-07-05] MEDS ORDERED: WARFARIN SOD 5 MG TAB PO ONE (08:45)
[2016-07-05] MEDS ORDERED: ENOXAPARIN 120 MG/0.8 ML SYR SQ ONE (08:45)
[2016-07-05 08:52] LABS: BUN/CREATININE RATIO 21.9 (10-20); CALCIUM 8.9 mg/dl (8.5-10.1); POTASSIUM 4.3 mmol/L (3.5-5.1)
[2016-07-05] MEDS: METOPROLOL TARTRATE 100 MG TAB PO SCH (08:55)
[2016-07-05] MEDS: INSULIN ASPART 100 UNITS/ML 3 ML PEN SC SCH ×2 (09:00→13:19)
--- NOTE | 2016-07-05 10:37 | Progress Note ---
Subjective Date of Service: Jul 05, 2016. Subjective Pt evaluation today including: conversation w/ patient, physical exam, chart review, lab review, review of studies, conversation w/ consultant intern, review of inpatient medication list Doing well, sitting up in a chair, no complaint Problem List Medical Problems: (1) DVT (deep venous thrombosis) Status: Acute (2) Elevation of cardiac enzymes Status: Acute (3) Syncope Status: Acute Review of Systems Constitutional: + fatigue, No chills, No fever, No problem reported, No sweats , No weakness, No weight loss Eyes: No diplopia, No discharge, No eye pain, No redness, No worsening of vision ENT: No dental problems, No hearing loss, No nasal symptoms, No sore throat, No tinnitus, No trouble swallowing, No unusual epistaxis Respiratory: No cough, No dyspnea at rest, No dyspnea on exertion, No hemoptysis, No shortness of breath, No sputum, No wheezing Cardiac: No PND, No chest pain, No claudication, No edema, No orthopnea, No palpitations Abdomen: No constipation, No diarrhea, No nausea, No pain, No vomiting Musculoskeletal: No calf pain, No joint pain, No muscle pain, No swelling Male : No dysuria, No hematuria, No incontinence, No nocturia more than once/ night, No slowing stream, No urinary frequency Neurologic: No balance problems, No memory loss, No numbness/tingling, No paralysis, No vertigo, No weakness Psychiatric: No anhedonism, No anxiety, No depression symptoms, No insomnia, No substance abuse Heme: No abnormal bleeding/bruising, No clotting problems, No night sweats, No swollen lymph nodes Endo: No excessive thirst, No excessive urination, No fatigue Skin: No bleeding, No color change, No itch, No new/changing skin lesions, No rash Objective Vital Signs Date Time Temp Pulse Resp B/P Pulse Ox O2 Delivery O2 Flow Rate FiO2 07/05/16 07:29 36.9 67 16 192/85 97 Room Air 07/05/16 01:18 60 169/92 94 Room Air 07/05/16 01:00 Room Air 07/05/16 00:00 36.7 78 16 171/81 94 Room Air 07/04/16 22:25 36.6 81 18 215/94 95 Room Air 07/04/16 22:00 191/74 07/04/16 21:15 215/94 07/04/16 21:07 36.6 81 18 235/98 95 Room Air 07/04/16 20:40 74 14 195/91 97 07/04/16 20:14 79 07/04/16 19:53 69 18 181/95 96 Room Air 07/04/16 19:53 95 Room Air 07/04/16 17:58 36.6 66 17 222/91 96 Room Air Physical Exam General Appearance: WD/WN, no apparent distress Eyes: normal inspection, PERRL, EOMI, sclerae normal ENT: normal ENT inspection, hearing grossly normal, pharynx normal Neck: supple, no adenopathy, thyroid normal, no JVD, no carotid bruits, trachea midline Respiratory/Chest: chest non-tender, normal breath sounds, no respiratory distress, no accessory muscle use, + decreased breath sounds, + pertinent finding (left anterior chest wall pacer in place) Cardiovascular: regular rate, rhythm, no edema, no gallop, no JVD, no murmur Abdomen: normal bowel sounds, non tender, soft, no organomegaly, no pulsatile mass Extremities: normal range of motion, non-tender, normal inspection, no pedal edema, no calf tenderness, normal capillary refill, pelvis stable, + swelling ( left arm swelling is better, there is no cyanosis, pulses symmetric and positive) Neurologic/Psychiatric: collision worker II-XII nml as tested, no motor/sensory deficits, alert, normal mood/affect, oriented x 3, + abnormal cerebellar tests Skin: normal color, warm/dry, no rash Lymphatic: no adenopathy Laboratory Results Last 24 Hours Test 07/04/16 19:48 07/04/16 22:34 07/05/16 02:35 07/05/16 07:25 White Blood Count 5.19 K/uL 5.18 K/uL Red Blood Count 4.06 M/uL 4.06 M/uL Hemoglobin 12.5 g/dL 12.4 g/dL Hematocrit 35.8 % 35.9 % Mean Corpuscular Volume 88.2 fL 88.4 fL Mean Corpuscular Hemoglobin 30.8 pg 30.5 pg Mean Corpuscular Hemoglobin Concent 34.9 g/dl 34.5 g/dl Platelet Count 149 K/uL 143 K/uL Mean Platelet Volume 10.5 fL 10.7 fL RDW Standard Deviation 42.6 fL 43.0 fL RDW Coefficient of Variation 13.2 % 13.3 % Neutrophils % (Manual) 57.3 % Lymphocytes % (Manual) 15.7 % Variant Lymphocytes % (manual) 11.3 % Monocytes % (Manual) 9.6 % Eosinophils % (Manual) 6.1 % Neutrophils # (Manual) 2.97 K/uL Total Absolute Neutrophils 2.97 K/uL Lymphocytes # (Manual) 0.81 K/uL Absolute Variant Lymphocytes 0.59 K/uL Total Absolute Lymphocytes 1.40 K/uL Monocytes # (Manual) 0.50 K/uL Eosinophils # (Manual) 0.32 K/uL Red Blood Cell Morphology Unremarkable Prothrombin Time 10.9 SECONDS Prothromb Time International Ratio 1.0 Activated Partial Thromboplast Time 30.8 SECONDS 47.8 SECONDS 48.9 SECONDS Partial Thromboplastin Ratio 1.2 1.8 1.9 Sodium Level 140 mmol/L 139 mmol/L Potassium Level 4.2 mmol/L 4.3 mmol/L Chloride Level 105 mmol/L 107 mmol/L Carbon Dioxide Level 24 mmol/L 23 mmol/L Anion Gap 11.0 mmol/L 9.0 mmol/L Blood Urea Nitrogen 48 mg/dl 44 mg/dl Creatinine 2.20 mg/dl 2.00 mg/dl Est Creatinine Clear Calc Drug Dose 38.5 ml/min 42.4 ml/min Estimated GFR () 33.4 37.5 Estimated GFR (Non- 28.9 32.4 BUN/Creatinine Ratio 22.0 21.9 Random Glucose 135 mg/dl 204 mg/dl Calcium Level 9.0 mg/dl 8.9 mg/dl Total Bilirubin 0.4 mg/dl Aspartate Amino Transf (AST/SGOT) 30 U/L Alanine Aminotransferase (ALT/SGPT) 20 U/L Alkaline Phosphatase 82 U/L Total Protein 8.4 gm/dl Albumin 4.3 gm/dl Globulin 4.1 gm/dl Albumin/Globulin Ratio 1.0 Folate > 24.00 ng/mL Bedside Glucose 212 mg/dl Test 07/05/16 07:58 Bedside Glucose 202 mg/dl Assessment and Plan A 71-year-old male admitted on 07/04/2016 with a pacemaker associated left subclavian deep vein thrombosis. Acute subclavian deep vein thrombosis: On heparin drip stable recent syncopal episode secondary to sick sinus syndrome and underwent pacemaker implantation of his left upper chest on 06/23/2016 and discharged on 06/24/2016. Need to continue follow-up with neuropsychology division chief PLAN: Patient has been on anticoagulated with heparin. No us extensive discussion about options of anticoagulation, include Lovenox, Coumadin, Xarelto and Eliquis Patient be Eliquis after discussed with cardiology service,, Eliquis does not need to have renal dose adjustment, I agree with that, Patient Free samples from neuropsychology division chief office, and then we'll continue follow- up with neuropsychology division chief Therefore will be discharged home today Has consult about the risk and benefit of anticoagulation, need to watch signs of bleeding coronary artery disease; dyslipidemia, diabetes, CK disease stage III All of the above condition is stable Will discharge home after patient get to Eliquis samples from cardiology office DVT prevention is full anticoagulation. The patient is a full code. Continued [facility] stay due to: home environment unsafe for pt Discharge planning: home
[2016-07-05] MEDS ORDERED: ELQ25 PO (10:40)
--- NOTE | 2016-07-05 10:41 | Discharge Instructions ---
Discharge Instructions Date of Service Jul 05, 2016. Admission Reason for Admission: Subclavian Vein Thromboembolism, Acute Discharge Discharge Diagnosis / Problem: (1) Subclavian vein thromboembolism, acute VTE Date & Time Date of VTE Diagnosis: Jul 04, 2016 Time of VTE Diagnosis: 16:53 Discharge Goals Goal(s): Decrease discomfort, Improve function, Increase independence, Improve disease control, Improve nutritional status, Learn about illness, Diagnostic testing, Therapeutic intervention, Prevent Disease Progression, Specific goals Activity Recommendations Activity Limitations: resume your previous activity . Instructions / Follow-Up Instructions / Follow-Up you have Left subclavian deep vein thrombosis. you have recent syncopal episode secondary to sick sinus syndrome and underwent pacemaker implantation you will got Eliquis Free samples from medical insurance clerk office, you need continue follow-up with medical insurance clerk in 2 week - you need to follow up with your primary care physician in 1 week, - take medication as instructed, never overdose or any misuse, or take with alcohol, because misuse of medicine may cause organ damage or , call your primary care physician if have questions of medicaitons. - call your primary care physician OR go to local emergency room if has any fever/chill, chest pain, shortness of breathing, nausea/vomiting/abdominal pain , facial droop/slurry speech/local weakness, or if has any questions. - fall precaution - diet as instructed - you need to follow up with your subspecialist , such as medical insurance clerk and supervisor fur dressing - you should understand that it is important to follow up the above instruction , and "not following the above instruction" may cause delayed or missed care of your medical conditions which may cause permanent organ damage and even . patient get Eliquis samples from cardiology office Medication Instructions: Your condition is typically treated with an anticoagulant. Anticoagulants will thin your blood to help prevent new clots. * You should take her medication exactly as directed. * Never skip a dose. * Never take a double dose. If you miss a dose, take it as soon as you remember. Call your Primary Care doctor if you experience any of the following: * Swelling or Pain in your leg * Sudden, continuous pain deep in a muscle * Pain that worsens when you are active or when you stand still for a long time * Chest Pain * Sudden Shortness of Breath * Rapid or pounding heart beat * Fainting * Dizziness * Cough with blood or bloody sputum * Sweating more than normal * Bruises * Heavy or uncontrolled bleeding * Blood in your urine, stool or vomit * Black or tarry stools Caring for Your Self at Home: * Avoid sitting, standing or lying down for long periods without moving your legs and feet * When traveling by car, stop to get out and move around at least once every 3 hours * On long airplane, train or bus rides, get up and move around when possible * If you can't get up, wiggle your toes and tighten your calves to keep your blood moving Follow Up: It is important for you to keep your follow up appointments with your medical provider. Current Hospital Diet Patient's current hospital diet: Diabetes Type 2 Diet Discharge Diet Recommended Diet: AHA Diet (Heart Healthy), Diabetes Type 2 Diet Pending Studies Studies pending at discharge: no Medical Emergencies . Who to Call and When: Medical Emergencies: If at any time you feel your situation is an emergency, please call 911 immediately. . Non-Emergent Contact Non-Emergency issues call your: Primary Care Provider, Director Hair . . "Provider Documentation" section prepared by Anton Sevilla. VTE Core Measure Inpt VTE Proph given/why not?: Other Anticoagulation
--- NOTE | 2016-07-05 10:48 | Discharge Summary ---
Discharge Summary Date of Service Jul 05, 2016. Discharge Summary Admission Date: Jul 04, 2016 at 20:01 Discharge Date: Jul 05, 2016 Discharge Disposition: Home Principal Diagnosis: Left subclavian deep vein thrombosis Problems/Secondary Diagnoses: recent syncopal episode secondary to sick sinus syndrome and underwent pacemaker implantation CKD Immunizations: Have You Had Influenza Vaccine: Unknown Procedures: No Consultations: Pairing Machine Operator Medication Reconciliation New Medications: Apixaban (Eliquis) 2.5 Mg Tab 10 MG PO BID for 1 Day, TAB patient get Eliquis samples from cardiology office Continued Medications: Allopurinol (Allopurinol) 300 Mg Tab 300 MG PO DAILY@1200 Aspirin (Aspirin 81) 81 Mg Tab 81 MG PO HS Cinnamon (Cinnamon) 500 Mg Cap 500 MG PO DAILY Felodipine (Plendil Er) 10 Mg Tab 10 MG PO DAILY Fenofibrate (Tricor) 67 Mg Cap 67 MG PO DAILY, CAP Fish Oil ([facility]-3) 1 Ea Cap 1 CAP PO DAILY, CAP Insulin Detemir (Levemir Flextouch) 100 Unit/Ml Inj 49 UNITS SC QPM Isosorbide Mononitrate Ext Rel (Imdur Ext Rel) 30 Mg Ertab 1 TAB PO DAILY for 30 Days, #30 TAB 5 Refills Lisinopril (Zestril) 40 Mg Tab 40 MG PO DAILY, TAB Metoprolol Tartrate (Metoprolol Tartrate) 100 Mg Tab 100 MG PO BID, #60 5 Refills Multiple Vitamins W/ Minerals (Centrum Silver Adult 50+) 1 Tab Tab 1 TAB PO DAILY Vitamin E (Vitamin E) 400 Unit Tab 400 MG PO DAILY Discharge Exam See today's note Review of Systems: Constitutional: + problem reported (see today's note) Physical Exam: General Appearance: + pertinent finding (today's note) Hospital Course A 71-year-old male admitted on 07/04/2016 with a pacemaker associated left subclavian deep vein thrombosis. Acute subclavian deep vein thrombosis: On heparin drip stable recent syncopal episode secondary to sick sinus syndrome and underwent pacemaker implantation of his left upper chest on 06/23/2016 and discharged on 06/24/2016. Need to continue follow-up with telecommunication engineer PLAN: Patient has been on anticoagulated with heparin. No us extensive discussion about options of anticoagulation, include Lovenox, Coumadin, Xarelto and Eliquis Patient be Eliquis after discussed with cardiology service,, Tieshaquis does not need to have renal dose adjustment, I agree with that, Patient Free samples from telecommunication engineer office, and then we'll continue follow- up with telecommunication engineer Therefore will be discharged home today Has consult about the risk and benefit of anticoagulation, need to watch signs of bleeding coronary artery disease; dyslipidemia, diabetes, CK disease stage III All of the above condition is stable Will discharge home after patient get to Eliquis samples from cardiology office DVT prevention is full anticoagulation. The patient is a full code. Instructions / Follow-Up you have Left subclavian deep vein thrombosis. you have recent syncopal episode secondary to sick sinus syndrome and underwent pacemaker implantation you will got Eliquis Free samples from telecommunication engineer office, you need continue follow-up with telecommunication engineer in 2 week - you need to follow up with your primary care physician in 1 week, - take medication as instructed, never overdose or any misuse, or take with alcohol, because misuse of medicine may cause organ damage or , call your primary care physician if have questions of medicaitons. - call your primary care physician OR go to local emergency room if has any fever/chill, chest pain, shortness of breathing, nausea/vomiting/abdominal pain , facial droop/slurry speech/local weakness, or if has any questions. - fall precaution - diet as instructed - you need to follow up with your subspecialist , such as telecommunication engineer and weight shifter - you should understand that it is important to follow up the above instruction , and "not following the above instruction" may cause delayed or missed care of your medical conditions which may cause permanent organ damage and even . Total Time Spent: Greater than 30 minutes This includes examination of the patient, discharge planning, medication reconciliation, and communication with other providers. Discharge Instructions Please refer to the electronic Patient Visit Report (Discharge Instructions) for additional information. Additional Copies To Adelfo Prieto M.D.; Gabriel Anderson M.D.
[2016-07-05] MEDS ORDERED: ALLOPURINOL 300 MG TAB PO SCH (12:00)
[2016-07-05 16:11] VITALS: BP 156/85; PULSE 67; TEMP 36.9; O2SAT 97
[2016-07-05] MEDS ORDERED: APIXABAN 2.5 MG TAB PO SCH (20:00)
[2016-07-05] MEDS ORDERED: ENOXAPARIN 120 MG/0.8 ML SYR SQ SCH (21:00)
--- NOTE | 2016-07-06 00:50 | CARDIOLOGY CONSULTATION REPORT ---
DATE OF CONSULTATION: 07/05/2016 REASON FOR CONSULTATION: 1. Acute subclavian vein thrombosis/DVT. 2. Status post pacemaker placement on 06/23/2016. HISTORY OF PRESENT ILLNESS: Mr. Larkin is a very pleasant 71-year-old white male with a history of longstanding hypertension, dyslipidemia, type 2 diabetes mellitus, first-degree AV block, chronic RBBB, and a hypertrophic cardiomyopathy who sustained an episode of syncope and collapse in September 2015. He underwent placement of an implantable loop recorder in September 2015, and we finally captured significant cardiac pauses lasting between 4 seconds and 9 seconds on remote interrogation of his implantable loop recorder recently. His pauses were consistent with high-grade AV block and sick sinus syndrome. Therefore, the patient underwent placement of a permanent dual-chamber pacemaker on 06/23/2016. The patient did well thereafter, and was subsequently discharged to home on 06/24/2016. Within a couple of days of being discharged to home, the patient began to notice some swelling and puffiness of his left hand and forearm. His swelling has gotten progressively worse and now extends up to his shoulder. It is not painful at all, and he has no other symptoms with it. He was encouraged by a relative to get it evaluated as soon as possible, so he came in to [facility] Emergency Room. Venous duplex Doppler confirms the presence of an acute left upper extremity DVT involving the left subclavian and axillary veins. The patient was subsequently admitted and started on heparin drip. This was converted to Lovenox, and there is discussion about starting Coumadin. The patient otherwise feels well. He has not had any other complications at his pacemaker site. The patient denies any chest pain, hemoptysis, pleuritic chest pain, shortness of breath, dyspnea on exertion, or any discomfort in his chest. He denies any arm pain. He denies any neurologic symptoms involving his arm. He has not had any chest pains, heaviness, tightness, or pressure. No neck, jaw, back, or arm pain. No cough or sputum production. No fevers or chills. No shortness of breath, unusual dyspnea on exertion, or any decrease in exertional tolerance. MEDICATIONS: 1. Allopurinol 300 mg daily. 2. Hydralazine 20 mg IV q. 4 hours p.r.n. for hypertension. 3. Plendil 10 mg daily. 4. [place]-3 fish oil capsule 1 gram daily. 5. Imdur 30 mg daily. 6. Lisinopril 40 mg daily. 7. Multivitamin with minerals. 8. Aspirin 81 mg daily. 9. Levemir insulin 49 units subcutaneous injection each evening. 10. Lopressor 100 mg b.i.d. 11. NovoLog sliding-scale insulin. 12. Lorazepam 0.5 mg q. 6 hours p.r.n. for anxiety. 13. Tylenol p.r.n. 14. Maalox Max p.r.n. 15. Milk of magnesia p.r.n. 16. MiraLax p.r.n. 17. Zofran 4 mg IV q. 6 hours p.r.n. 18. Lovenox 120 mg subcutaneous injection x1 dose thus far. ALLERGIES: NKDA. PAST MEDICAL HISTORY: 1. Anemia of chronic disease. 2. Chronic kidney disease. 3. Type 2 diabetes mellitus with diabetic neuropathy. 4. Hypertension. 5. Hypercholesterolemia. 6. Hypertrophic obstructive cardiomyopathy. 7. Proliferative diabetic retinopathy. 8. History of proteinuria. 9. Chronic RBBB. 10. Secondary hyperparathyroidism. 11. Sick sinus syndrome status post dual-chamber pacemaker placement. 12. History of syncope and collapse status post implantable loop recorder placement. 13. Status post explantation of implantable loop recorder. 14. History of vitamin D deficiency. 15. History of first-degree AV block. 16. History of sciatica. 17. History of gout. 18. History of low back pain. SOCIAL HISTORY: The patient is and lives with his . He is retired from work. He does not use alcohol or tobacco. FAMILY HISTORY: Significant for CAD and diabetes mellitus in his mother. Father had diabetes mellitus. Other family members with coronary artery disease. PHYSICAL EXAMINATION: VITAL SIGNS: Temperature is 36.9 degrees Celsius, pulse is 68 and regular, respiratory rate is 16 nonlabored, blood pressure is 192/85, SpO2 is 97% on room air. GENERAL: The patient is in no acute distress. HEENT: Head is atraumatic, normocephalic. EOMs intact. Sclerae are anicteric. Face is symmetric. No perioral cyanosis. Mucous membranes moist. NECK: Without thyromegaly, adenopathy or JVD. Carotid upstrokes +2 bilaterally without bruits. CHEST AND LUNGS: Clear to auscultation throughout lung escoto. No wheezes, rales, rhonchi. CARDIOVASCULAR: S1 and S2 are regular, with a grade 1/6 basal systolic murmur which does not appear to radiate. No diastolic murmurs appreciated. No gallops or rubs. PMI is not displaced. No lifts, heaves or thrills. No abdominal, aortic or renal bruits. ABDOMEN: Bowel sounds are present. No masses, organomegaly, or tenderness. EXTREMITIES: Without clubbing or cyanosis. There is significant edema of the left upper extremity from the brachium to the fingers. It is warm to the touch, no significant erythema. Distal capillary refill is within normal limits. Normal radial and ulnar pulsations bilaterally. NEUROLOGIC: The patient is awake, alert and oriented. Pleasant and cooperative. Answers questions appropriately. Speech is clear. Normal movement in bilateral upper and lower extremities. Gait pattern is not assessed. IMAGING: Venous duplex Doppler revealed an acute left subclavian and axillary vein DVT on admission. LABORATORIES: White blood cell count is 5.18, hemoglobin 12.4 g/dL, hematocrit 35.9%, platelet count 143,000. Sodium is 139 mmol/liter, potassium 4.3 mmol/liter, BUN 44 mg/dL, creatinine 2.00 mg/dL, random glucose 202 mg/dL. Homocysteine level is pending. Hypercoagulability workup is pending. ASSESSMENT: 1. Left subclavian vein DVT, likely a complication of recent permanent pacemaker placement. 2. Sick sinus syndrome status post a dual-chamber pacemaker placement on 06/23/2016. 3. History of syncope. 4. History of hypertrophic obstructive cardiomyopathy. 5. Hypertension. 6. Dyslipidemia. 7. History of insulin requiring type 2 diabetes mellitus. 8. Diagnosis as mentioned above. 9. No signs or symptoms of pulmonary embolism. 10. No evidence of pulmonary embolism. PLAN: The patient was admitted with an acute subclavian vein DVT, which is likely a complication from his recent dual-chamber pacemaker placement. At the present time he is doing quite well, and with the exception of marked swelling of his left upper extremity, he is asymptomatic. The patient is aware that this is a known complication that can be associated with pacemaker placement and he is aware of the management strategies. After extensive discussion, the patient will be started on Eliquis 10 mg b.i.d. x 7 days, then 5 mg b.i.d. thereafter for a total of 3-6 months. The patient verbalizes understanding of these instructions. 2. Additionally, he will not need Lovenox. 3. As his hypertension is not controlled, we will add oral Hydralazine 25 mg t.i.d. in addition to his usual antihypertensive regimen. 4. The patient is to call if any problems, questions, or change in clinical status. He will return to the office as needed, or in approximately 2 weeks for Cardiologic followup. The patient agrees with this plan. PREM
[2016-07-06] MEDS ORDERED: WARFARIN SOD 5 MG TAB PO SCH (16:00)
[2016-07-10 16:35] LABS: B2 GLYCOPROTEIN IGA <9 SAU (<=20); B2 GLYCOPROTEIN IGG <9 SGU (<=20); B2 GLYCOPROTEIN IGM 46 SMU (<=20); DRVVT MIX INTERPRETAION Not Indicated; LAC PTT SCREEN 49 sec (<=40); PHOSPHATIDYLSERINE IGA <20 U/mL (<20); PHOSPHATIDYLSERINE IGG <10 U/mL (<10); PHOSPHATIDYLSERINE IGM 70 U/mL (<25); PROTEIN C ACTIVITY** TC 1777X 132 % (70-180); PROTEIN S ACT(FUNCT)**1779X 116 % (70-150)
[2016-07-11 11:27] LABS: ANTITHROMBINIII ACTIVITY** 112 % activity (80-120); B2 GLYCOPROTEIN IGA <9 SAU (<=20); B2 GLYCOPROTEIN IGG <9 SGU (<=20); B2 GLYCOPROTEIN IGM 44 SMU (<=20)
[2016-07-11 11:47] LABS: LUPUS ANTICOAGULANT** TC36573X Negative (Negative)
[2016-07-19] MEDS ORDERED: APIXABAN 2.5 MG TAB PO SCH (20:00)
== END 2016-07-05 16:31 | disposition home or self-care (01) | DRG 315 ==
LOC: ENRESERVTM → ENRESERVDT → C.EDB 17:38 → C.MS4W 20:01
PROVIDERS: ADMIT Internal Medicine; ATTEND Hospitalist
DX: T82.867A Thrombosis due to cardiac prosthetic devices, implants and grafts, initial encounter (principal); I42.1 Obstructive hypertrophic cardiomyopathy; I82.B12 Acute embolism and thrombosis of left subclavian vein; Y71.2 Prosthetic and other implants, materials and accessory cardiovascular devices associated with adverse incidents; I25.10 Atherosclerotic heart disease of native coronary artery without angina pectoris; E11.319 Type 2 diabetes mellitus with unspecified diabetic retinopathy without macular edema; E11.22 Type 2 diabetes mellitus with diabetic chronic kidney disease; E78.5 Hyperlipidemia, unspecified; I12.9 Hypertensive chronic kidney disease with stage 1 through stage 4 chronic kidney disease, or unspecified chronic kidney disease; N18.3 Chronic kidney disease, stage 3 (moderate); M10.9 Gout, unspecified; Z79.82 Long term (current) use of aspirin; Z79.4 Long term (current) use of insulin; Z79.899 Other long term (current) drug therapy; I82.A12 Acute embolism and thrombosis of left axillary vein

== ENCOUNTER → 2016-07-04 | Outpatient (CLI) | payer OTHER ==
[~2016-07-04] MED LIST changes: -CEFAZOLIN 1000MG/55 ML D5W IV SCH; +CINN1CAP2 PO; +ELQ25 PO; +FENO67CA2 PO; +ISOS30TA3 PO; +LISI40TA PO; -NSP/500 PO; +OMEG10007 PO; +VITA1TAB4 PO; +vitamin e PO
--- NOTE | 2016-07-04 16:56 | DIAGNOSTIC IMAGING REPORT ---
ULTRASOUND LEFT VENOUS DOPPLER UPR EXT UNIL CLINICAL HISTORY: Left forearm swelling COMPARISON STUDY: No previous studies for comparison. FINDINGS: No thrombus is visualized within the left internal jugular vein. There is occlusive thrombus within the distal subclavian and axillary veins. There is thrombus in the proximal left cephalic vein. The brachial basilic radial and ulnar veins appear patent area IMPRESSION: Acute left upper extremity DVT involving the subclavian axillary veins. Electronically signed by: Mayito Bolton M.D. 07/04/2016 4:55 PM Dictated Date/Time: 07/04/2016 4:53 PM
== END | disposition home or self-care (01) ==
LOC: C.ULTR 15:38
PROVIDERS: ATTEND Family Medicine
DX: I82.A12 Acute embolism and thrombosis of left axillary vein (principal); I82.B12 Acute embolism and thrombosis of left subclavian vein

== ENCOUNTER → 2016-08-17 | Outpatient (CLI) | payer OTHER ==
[~2016-08-17] MED LIST changes: +ELQ25 PO; +VITA1TAB4 PO; -vitamin e PO
[2016-08-17 12:14] LABS: HEMATOCRIT 38.5 % (42-52); MEAN CELL VOLUME 91.2 fL (80-100); MEAN PLATELET VOLUME 11.1 fL (7.4-10.4); PLATELET COUNT 168 K/uL (130-400); RED BLOOD COUNT 4.22 M/uL (4.7-6.1); WHITE BLOOD COUNT 4.67 K/uL (4.8-10.8)
[2016-08-17 12:35] LABS: BLOOD UREA NITROGEN 66 mg/dl (7-18); BUN/CREATININE RATIO 26.2 (10-20); CARBON DIOXIDE 22 mmol/L (21-32); CHLORIDE 108 mmol/L (98-107); GLUCOSE 166 mg/dl (70-99); POTASSIUM 4.8 mmol/L (3.5-5.1); SODIUM 140 mmol/L (136-145)
[2016-08-17 12:36] LABS: PHOSPHORUS 3.6 mg/dl (2.5-4.9)
[2016-08-17 12:40] LABS: CALCIUM 9.3 mg/dl (8.5-10.1)
[2016-08-17 12:46] LABS: URINE APPEARANCE CLEAR (CLEAR); URINE BILIRUBIN NEG (NEG); URINE COLOR YELLOW; URINE NITRITE NEG (NEG); UROBILINOGEN NEG (NEG)
[2016-08-17 12:48] LABS: URINE PROTIEN/CREAT RATIO 0.1 (0-0.2); URINE TOTAL PROTEIN 19.1 mg/dl (0-11.9)
[2016-08-17 12:53] LABS: MANUAL MICROSCOPIC REQUIRED? NO; REVIEW REQ? NO
[2016-08-17 12:54] LABS: ESTIMATED AVERAGE GLUCOSE 180 mg/dl; HA1C FLAG Normal (Normal)
== END | disposition home or self-care (01) ==
LOC: C.LABPVFM 09:23
PROVIDERS: ATTEND Internal Medicine Nephrology
DX: E11.49 Type 2 diabetes mellitus with other diabetic neurological complication (principal); N18.3 Chronic kidney disease, stage 3 (moderate); I10 Essential (primary) hypertension; N25.81 Secondary hyperparathyroidism of renal origin; D63.8 Anemia in other chronic diseases classified elsewhere; R80.9 Proteinuria, unspecified; E55.9 Vitamin D deficiency, unspecified

== ENCOUNTER → 2016-11-21 | Outpatient (CLI) | payer OTHER ==
[2016-11-21 12:49] LABS: HEMATOCRIT 36.4 % (42-52); MEAN CELL VOLUME 91.5 fL (80-100); MEAN CORPUSCULAR HEMOGLOBIN 31.7 pg (25-34); MEAN CORPUSCULAR HGB CONC 34.6 g/dl (32-36); PLATELET COUNT 189 K/uL (130-400); RED BLOOD COUNT 3.98 M/uL (4.7-6.1); WHITE BLOOD COUNT 5.89 K/uL (4.8-10.8)
[2016-11-21 12:53] LABS: URINE APPEARANCE CLEAR (CLEAR); URINE BILIRUBIN NEG (NEG); URINE COLOR YELLOW; URINE NITRITE NEG (NEG); URINE SPECIFIC GRAVITY 1.019 (1.000-1.030); UROBILINOGEN NEG (NEG)
[2016-11-21 13:03] LABS: MANUAL MICROSCOPIC REQUIRED? NO; REVIEW REQ? NO
[2016-11-21 13:14] LABS: ESTIMATED AVERAGE GLUCOSE 200 mg/dl; HA1C FLAG Normal (Normal)
[2016-11-21 13:20] LABS: URINE PROTIEN/CREAT RATIO 0.4 (0-0.2); URINE TOTAL PROTEIN 54.8 mg/dl (0-11.9)
[2016-11-21 13:32] LABS: ALT/SGPT 18 U/L (12-78); AST/SGOT 23 U/L (15-37); BLOOD UREA NITROGEN 40 mg/dl (7-18); BUN/CREATININE RATIO 19.9 (10-20); CALCIUM 9.1 mg/dl (8.5-10.1); CARBON DIOXIDE 26 mmol/L (21-32); CHLORIDE 106 mmol/L (98-107); CHOLESTEROL 174 mg/dl (0-200); GLUCOSE 110 mg/dl (70-99); POTASSIUM 4.6 mmol/L (3.5-5.1); SODIUM 137 mmol/L (136-145); URIC ACID 6.3 mg/dl (2.6-7.2)
[2016-11-21 13:35] LABS: ALB/GLOB RATIO 0.8 (0.9-2); ALKALINE PHOSPHATASE 81 U/L (45-117); CHOLESTEROL/HDL RATIO 6.4; HDL CHOLESTEROL 27 mg/dl; LDL CHOLESTEROL CALCULATED 108 mg/dl; TRIGLYCERIDES 193 mg/dl (0-150); VERY LOW DENSITY LIPOPROT CALC 39 mg/dl
== END | disposition home or self-care (01) ==
LOC: C.LABPVFM 09:51
PROVIDERS: ATTEND Internal Medicine Nephrology
DX: N18.3 Chronic kidney disease, stage 3 (moderate) (principal); I10 Essential (primary) hypertension; N25.81 Secondary hyperparathyroidism of renal origin; D63.8 Anemia in other chronic diseases classified elsewhere; R80.9 Proteinuria, unspecified; E55.9 Vitamin D deficiency, unspecified; E11.49 Type 2 diabetes mellitus with other diabetic neurological complication

== ENCOUNTER → 2017-05-22 | Outpatient (CLI) | payer OTHER ==
[2017-05-22 12:26] LABS: HEMATOCRIT 40.7 % (42-52); HEMOGLOBIN 13.7 g/dL (14.0-18.0); MEAN CELL VOLUME 92.3 fL (80-100); MEAN CORPUSCULAR HEMOGLOBIN 31.1 pg (25-34); MEAN CORPUSCULAR HGB CONC 33.7 g/dl (32-36); MEAN PLATELET VOLUME 10.9 fL (7.4-10.4); PLATELET COUNT 168 K/uL (130-400); RED CELL DISTRIBUTION WIDTH CV 13.7 % (11.5-14.5); WHITE BLOOD COUNT 5.44 K/uL (4.8-10.8)
[2017-05-22 13:22] LABS: HEMOGLOBIN A1C 8.5 % (4.5-5.6)
[2017-05-22 13:27] LABS: ALBUMIN 4.1 gm/dl (3.4-5.0); ALKALINE PHOSPHATASE 69 U/L (45-117); ALT/SGPT 21 U/L (12-78); AST/SGOT 31 U/L (15-37); BLOOD UREA NITROGEN 51 mg/dl (7-18); CALCIUM 9.6 mg/dl (8.5-10.1); CARBON DIOXIDE 23 mmol/L (21-32); CREATININE 2.62 mg/dl (0.60-1.40); GLUCOSE 111 mg/dl (70-99); POTASSIUM 4.7 mmol/L (3.5-5.1); SODIUM 138 mmol/L (136-145); TOTAL PROTEIN 8.3 gm/dl (6.4-8.2)
== END | disposition home or self-care (01) ==
LOC: C.LABPVFM 09:48
PROVIDERS: ATTEND Internal Medicine Nephrology
DX: E11.49 Type 2 diabetes mellitus with other diabetic neurological complication (principal); E11.22 Type 2 diabetes mellitus with diabetic chronic kidney disease; I12.9 Hypertensive chronic kidney disease with stage 1 through stage 4 chronic kidney disease, or unspecified chronic kidney disease; N18.3 Chronic kidney disease, stage 3 (moderate); D63.8 Anemia in other chronic diseases classified elsewhere; R80.9 Proteinuria, unspecified; E55.9 Vitamin D deficiency, unspecified

== ENCOUNTER → 2017-07-11 | Outpatient (CLI) | payer OTHER ==
[2017-07-11 14:27] LABS: ALBUMIN 4.2 gm/dl (3.4-5.0); BLOOD UREA NITROGEN 59 mg/dl (7-18); CALCIUM 9.2 mg/dl (8.5-10.1); CARBON DIOXIDE 25 mmol/L (21-32); CREATININE 2.42 mg/dl (0.60-1.40); GLUCOSE 126 mg/dl (70-99); PHOSPHORUS 3.3 mg/dl (2.5-4.9); POTASSIUM 4.9 mmol/L (3.5-5.1); SODIUM 136 mmol/L (136-145)
== END | disposition home or self-care (01) ==
LOC: C.LABPVFM 10:53
PROVIDERS: ATTEND Internal Medicine Nephrology
DX: N18.3 Chronic kidney disease, stage 3 (moderate) (principal); E78.00 Pure hypercholesterolemia, unspecified; R80.9 Proteinuria, unspecified; N25.81 Secondary hyperparathyroidism of renal origin; E55.9 Vitamin D deficiency, unspecified; D63.8 Anemia in other chronic diseases classified elsewhere

== ENCOUNTER → 2017-11-20 | Outpatient (CLI) | payer OTHER ==
[2017-11-20 12:49] LABS: HEMATOCRIT 37.3 % (42-52); HEMOGLOBIN 12.5 g/dL (14.0-18.0); MEAN CELL VOLUME 92.3 fL (80-100); MEAN CORPUSCULAR HEMOGLOBIN 30.9 pg (25-34); MEAN CORPUSCULAR HGB CONC 33.5 g/dl (32-36); MEAN PLATELET VOLUME 11.2 fL (7.4-10.4); PLATELET COUNT 157 K/uL (130-400); RED CELL DISTRIBUTION WIDTH CV 14.2 % (11.5-14.5); RED CELL DISTRIBUTION WIDTH SD 47.9 fL (36.4-46.3); WHITE BLOOD COUNT 5.33 K/uL (4.8-10.8)
[2017-11-20 13:26] LABS: BLOOD UREA NITROGEN 48 mg/dl (7-18); CALCIUM 8.9 mg/dl (8.5-10.1); CARBON DIOXIDE 23 mmol/L (21-32); CREATININE 2.27 mg/dl (0.60-1.40); GLUCOSE 101 mg/dl (70-99); PHOSPHORUS 3.3 mg/dl (2.5-4.9); POTASSIUM 4.7 mmol/L (3.5-5.1); SODIUM 138 mmol/L (136-145)
== END | disposition home or self-care (01) ==
LOC: C.LABPVFM 08:55
PROVIDERS: ATTEND Internal Medicine Nephrology
DX: N18.3 Chronic kidney disease, stage 3 (moderate) (principal); I10 Essential (primary) hypertension; R80.9 Proteinuria, unspecified; N25.81 Secondary hyperparathyroidism of renal origin; D63.8 Anemia in other chronic diseases classified elsewhere; E55.9 Vitamin D deficiency, unspecified

== ENCOUNTER 2020-10-01 19:39 | Inpatient (IN) ==
[2020-10-01] MEDS ORDERED: SODIUM CHLORIDE 0.9% 500 ML IV ONE (20:01)
--- NOTE | 2020-10-01 20:22 | XRay Report ---
XR chest 1V portable CLINICAL HISTORY: Chest Pain COMPARISON STUDY: Chest radiograph June 24, 2016. FINDINGS: Lung volumes are normal. Lungs are clear. There is no pneumothorax or pleural effusion. Mil d cardiomegaly is unchanged. Mediastinal contours are normal. There is no evidence for pulmonary rey a. Dual-lead left pacemaker is in place. [place] projects over the right chest. IMPRESSION: No acute cardiopulmonary findings. No change in appearance of the chest. ACT 112: Negative or not required by law. Electronically signed by: Yosef Still M.D. 10/01/2020 8:21 PM
[2020-10-01 20:31] LABS: Partial Thromboplastin Ratio 1.3; Partial Thromboplastin Time 32.9 Seconds (21.0-31.0)
[2020-10-01 20:38] LABS: BUN Creatinine Ratio 18.5 (10-20); Bilirubin Direct 0.2 mg/dl (0-0.2); Calcium 9.5 mg/dl (8.5-10.1); Creatinine Clr Calc Pharmacy 27.2 ml/min; Est GFR (African American) 25.5 ml/min; Magnesium 2.1 mg/dl (1.8-2.4); Potassium 4.2 mmol/L (3.5-5.1)
[2020-10-01 20:54] LABS: Albumin Globulin Ratio 1.1 (0.9-2); Bilirubin,Total 0.5 mg/dl (0.2-1); Globulin 3.7 gm/dl (2.5-4.0); Thyroid Stimulating Hormone 1.03 uIu/ml (0.300-4.500); Total Protein 7.7 gm/dl (6.4-8.2); Troponin I 0.083 ng/ml (0-0.045)
[2020-10-01 22:02] LABS: Basophils # (auto) 0.01 K/uL (0-0.2); Basophils % (auto) 0.2 %; Eosinophils # (auto) 0.12 K/uL (0-0.5); Eosinophils % (auto) 1.9 %; Hematocrit (blood only) 36.6 % (42-52); Hemoglobin 12.5 g/dL (14.0-18.0); Immature Granulocytes # (auto) 0.01 K/uL (0.00-0.02); Immature Granulocytes % (auto) 0.2 %; Lymphocytes # (auto) 1.02 K/uL (1.2-3.4); Lymphocytes % (auto) 16.3 %; Mean Corpuscular Hemoglobin 31.6 pg (25-34); Mean Corpuscular Hgb Conc 34.2 g/dL (32-36); Mean Corpuscular Volume 92.7 fL (80-100); Mean Platelet Volume 10.8 fL (7.4-10.4); Monocytes # (auto) 0.75 K/uL (0.11-0.59); Neutrophils # (auto) 4.33 K/uL (1.4-6.5); Neutrophils % (auto) 69.4 %; Platelet Count 191 K/uL (130-400); RDW Coefficient of Variation 13.7 % (11.5-14.5); RDW Standard Deviation 46.7 fL (36.4-46.3); Red Blood Count 3.95 M/uL (4.7-6.1); White Blood Count 6.24 K/uL (4.8-10.8)
[2020-10-01 22:35] LABS: Appearance Urine Clear (Clear); Bacteria Urine Automated Negative (Negative); Bilirubin Urine Negative (Negative); Blood Urine Negative (Negative); Cast Urine Automated 0 /lpf (0-5); Color Urine Yellow; Glucose Urine UA Negative (Negative); Ketones Urine Negative (Negative); Leukocyte Esterase Urine Negative (Negative); Nitrite Urine Negative (Negative); RBC Urine Automated 0-4 /hpf (0-4); Specific Gravity Urine 1.013 (1.000-1.030); Urobilinogen Urine Negative (Negative); WBC Urine Automated 0 /hpf (0-5)
[2020-10-01 22:37] LABS: Protein Urine 1+ (Negative)
--- NOTE | 2020-10-01 23:21 | Emergency Department Note ---
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 He denies any fevers, chills, cough congestion, GI or symptoms. He reports he is following with urology for urinary symptoms. Of note, the patient's brother did arrive to the bedside and reports the patient has been increasingly weak over past couple of weeks where he feels he is not safe at home where he lives by himself. He further adds that he fell twice today and additional 2 times earlier in the week. On arrival the patient is chronically ill-appearing but no distress, afebrile stable vital signs. He is moving all extremities equally without focal neurologic deficits. Hips and pelvis are stable. He has mild suprapubic fu llness with discomfort without discrete tenderness. EKG demonstrates atrial fibrillation with intermittent pacing. Chest X-ray negative for acute cardiopulmonary process. WBC and platelets within normal limits. H/H 12.5/36.6 proximal to prior range of values. Chemistry without metabolic acidosis. Creatinine 2.69 similar to prior range of values in the setting of CKD. Electrolytes unremarkable. LFTs without significant abnormality. CPK marginally elevated in the 400s. Troponin 0.083 without recent values for comparison. TSH within normal limits. UA without convincing evidence of infection. COVID-[address] of the head was negative for acute process. CT abd pelvis demonstrates nonspecific bilateral symmetric. Renal fat stranding with distended bladder. Like related to BPH however will treat with CTX for possible upper infection. Fecal retention is noted. Given worsening weakness with urinary retention and elevated Troponin reasonable to admit for further management. Patient and his brother agree with plan for admission. Case was discussed with Dr. Woodruff, [facility], who will evaluate the patient for admission. Triage Nursing notes reviewed and agree them. Prior medical records reviewed Vital Signs: reviewed and remarkable for no significant abnormalities Differential diagnosis: Infection, dehydration, metabolic abnormality, hypo/hyperglycemia, electrolyte disturbance, anemia, hypoxia, cardiac sources, intracerebral event, toxicologic, neurologic, as well as other pathologies. ER treatment provided: See below. Diagnostics interpreted by me: ECG: Atrial fibrillation with intermittent atrial pacing, 54 bpm, no overt acute ischemia. Cardiac Monitoring: An order for continuous cardiac monitoring was placed and demonstrated Atrial fibrillation with intermittent atrial pacing, 54 bpm. Laboratory studies: See below Imaging studies: STATARAD Preliminary Findings Only See Final Report For Complete Findings CT HEAD: No acute intracranial hemorrhage, extra-axial fluid collection or mass-effect. No CT evidence of acute territorial infarct. Age-related generalized cerebral volume loss with hypoattenuation throughout the supratentorial white matter which are nonspecific, but often seen in the setting of chronic microvascular ischemic disease. Possible focal encephalomalacia within the high right parietal lobe. Atherosclerotic calcifications of the V4 segments of both vertebral arteries and both cavernous and supraclinoid internal carotid arteries. Radiologist: Loren Arreola M.D. Study ready at 21:23 and initial results transmitted at 21:54 -- Preliminary Findings Only See Final Report For Complete Findings CT ABDOMEN & PELVIS Without Contrast: The urinary bladder is distended. No hydronephrosis or hydroureter. Favored punctate renal artery calcifications rather than renal stones involving the left kidney. Nonspecific bilateral symmetric perirenal fat stranding. Large amount of stool is visualized within the rectum consistent with fecal impaction. Visualized portions of the appendix are unremarkable. Cardiac pacemaker leads partially included in the [id number]. Multilevel degenerative changes of the spine. Fatty atrophy of the pancreas. Atherosclerotic calcifications of the abdominal aorta and branch vessels. Radiologist: Loren Arreola M.D. Study ready at 22:15 and initial results transmitted at 22:28 Consultation(s): Case was discussed with Dr. Woodruff, [facility], who will evaluate the patient for admission. 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 He denies any fevers, chills, cough congestion, GI or symptoms. He reports he is following with urology for urinary symptoms. Of note, the patient's brother did arrive to the bedside and reports the patient has been increasingly weak over the past couple of weeks where he feels he is not safe at home where he lives by himself. He further adds that he fell twice today and additional 2 times earlier in the week. ROS: See above HPI for pertinent positives & negatives. A total of 10 systems reviewed and were otherwise negative. PAST MEDICAL HISTORY:See Below PAST SURGICAL HISTORY:See Below FAMILY HISTORY:See Below SOCIAL HISTORY:See Below HOME MEDICATIONS:See Below ALLERGIES:See Below VITALS:See Below PHYSICAL EXAMINATION: GENERAL: Awake, alert, chronically ill-appearing, in no distress HENT: Normocephalic, atraumatic. Oropharynx with dry mucous membranes and otherwise unremarkable. EYES: Normal conjunctiva. Sclera non-icteric. EOMI. No nystamgus. PEARRL. NECK: Supple. No nuchal rigidity. FROM. No JVD. RESPIRATORY: Clear to auscultation. CARDIAC: Regular rate, irregular rhythm. Extremities warm and well perfused. Pulses equal. ABDOMEN: Soft, non-distended. Mild suprapubic fullness with discomfort without discrete tenderness. No rebound or guarding. No masses. RECTAL: Deferred. MUSCULOSKELETAL: Chest examination reveals no tenderness. The back is symmetrical on inspection without obvious abnormality. There is no CVA tenderness to palpation. No joint edema. LOWER EXTREMITIES: Calves are equal size bilaterally and non-tender. No edema. No discoloration. NEURO: No focal sensory or motor deficits noted. Speech is fluent. 4+/5 strength and SILT x 4 extremities. SKIN: No rash or jaundice noted. Chalo Pinedo MD Past Med/Surg History Medical History BPH with obstruction/lower urinary tract symptoms Deep vein thrombosis (DVT) of left lower extremity Diabetes Hypertension Low back pain Mobitz (type) II atrioventricular block Proteinuria Skin carcinoma Subclavian vein thromboembolism, acute Syncope and collapse Surgical History H/O arthroscopy of knee History of cataract surgery Status post placement of cardiac pacemaker Family History Mother Ovarian cancer Diabetes Father Diabetes Unknown Coronary heart disease Denies family history of Prostate cancer Myocardial infarction Breast cancer Colorectal cancer Social History Smoking Status: Never smoker Second Hand Exposure: No; Hx Alcohol Use: No Hx Substance Use: No Preferred Language: Swazi Communication Ability: Effective 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 Required: No Beliefs That Will Affect Care: None marital status: / Current Living Situation: Alone current occupational status: retired Other Information That Helps Us Care for You: No Feels Safe at Home: Yes Safety Concerns: Feels Safe At This Time Childhood Exposure to Second-Hand Smoke: No caffeine: Yes Dental Care, Regularly: Yes Physical Activity Frequency: 1-2 Times per Week Seatbelt Use: always Sunscreen Use: No Assistive Devices: Walker Allergies Allergies Allergy/AdvReac Type Severity Reaction Status Date / Time No Known Allergies Allergy ` Verified 10/01/20 21:38 Home Meds Home Medications Medication Instructions Recorded Confirmed insulin glargine U-300 conc 300 30 unit SUBCUT DAILY ml 07/13/20 10/01/20 unit/mL (1.5 mL) subcutaneous pen allopurinol 300 mg PO UD 10/01/20 10/01/20 Previous Rx's Medication Instructions Recorded cholecalciferol (vitamin D3) 25 1,000 units PO DAILY #90 cap 09/09/19 mcg (1,000 unit) capsule fenofibrate micronized 67 mg 67 mg PO DAILY #90 cap 12/05/19 capsule felodipine 10 mg tablet,extended 10 mg PO DAILY #90 tab 02/04/20 release 24 hr isosorbide mononitrate 30 mg 30 mg PO DAILY #90 tab 02/07/20 tablet,extended release 24 hr lisinopril 40 mg tablet 40 mg PO DAILY #90 tab 02/10/20 metoprolol tartrate 100 mg tablet 100 mg PO BID #180 tab 05/11/20 blood sugar diagnostic #100 ea 06/29/20 apixaban 5 mg tablet 5 mg PO BID #60 tab 07/13/20 simvastatin 10 mg tablet 10 mg PO DAILY #90 tab 08/18/20 solifenacin 10 mg tablet 10 mg PO DAILY #30 tab 08/19/20 Results & Data (ED) Vital Signs Vital Signs - 24 hr 10/01/20 19:54 10/01/20 19:55 10/01/20 19:56 Temperature 36.6 C Temperature Source Oral Pulse Rate 60 67 60 Pulse Rate from SpO2 Sensor 62 61 Respiratory Rate 20 20 22 Respiratory Depth Normal Blood Pressure 167/75 H 177/94 H Blood Pressure Mean 105 121 Blood Pressure Position Lying Pulse Oximetry 98 98 97 Oxygen Delivery Method Room Air Sepsis Recent Fever Within 48 Hours No Sepsis New/Unexplained Change in Mental Status N/A Sepsis Action Taken by Nursing No Action Required 10/01/20 20:00 10/01/20 20:01 10/01/20 20:17 Temperature Temperature Source Pulse Rate 63 65 Pulse Rate from SpO2 Sensor 64 65 Respiratory Rate 24 16 20 Respiratory Depth Blood Pressure 167/75 H Blood Pressure Mean 105 Blood Pressure Position Pulse Oximetry 98 98 96 Oxygen Delivery Method Room Air Sepsis Recent Fever Within 48 Hours Sepsis New/Unexplained Change in Mental Status Sepsis Action Taken by Nursing 10/01/20 21:30 10/01/20 22:00 10/01/20 23:00 Temperature Temperature Source Pulse Rate 57 L Pulse Rate from SpO2 Sensor 57 L 58 L 61 Respiratory Rate 21 Respiratory Depth Blood Pressure 155/62 H 168/69 H Blood Pressure Mean 93 102 Blood Pressure Position Pulse Oximetry 96 96 98 Oxygen Delivery Method Sepsis Recent Fever Within 48 Hours Sepsis New/Unexplained Change in Mental Status Sepsis Action Taken by Nursing 10/01/20 23:31 10/01/20 23:32 10/02/20 00:00 Temperature Temperature Source Pulse Rate Pulse Rate from SpO2 Sensor 59 L 59 L 61 Respiratory Rate Respiratory Depth Blood Pressure 160/101 H Blood Pressure Mean 120 Blood Pressure Position Pulse Oximetry 96 97 98 Oxygen Delivery Method Sepsis Recent Fever Within 48 Hours Sepsis New/Unexplained Change in Mental Status Sepsis Action Taken by Nursing 10/02/20 00:31 10/02/20 00:40 10/02/20 01:00 Temperature Temperature Source Pulse Rate 107 H 88 57 L Pulse Rate from SpO2 Sensor 88 57 L Respiratory Rate 24 22 23 Respiratory Depth Blood Pressure 177/105 H 160/70 H Blood Pressure Mean 129 100 Blood Pressure Position Pulse Oximetry 97 96 Oxygen Delivery Method Sepsis Recent Fever Within 48 Hours Sepsis New/Unexplained Change in Mental Status Sepsis Action Taken by Nursing 10/02/20 01:01 Temperature Temperature Source Pulse Rate 55 L Pulse Rate from SpO2 Sensor 55 L Respiratory Rate 20 Respiratory Depth Blood Pressure Blood Pressure Mean Blood Pressure Position Pulse Oximetry 97 Oxygen Delivery Method Sepsis Recent Fever Within 48 Hours Sepsis New/Unexplained Change in Mental Status Sepsis Action Taken by Nursing Laboratory Data Attestation: I reviewed the patient's lab results. Result diagrams: 10/01/20 20:05 10/01/20 20:05 Lab Results 10/01/20 10/01/20 10/01/20 Range/Units 20:05 20:05 20:05 WBC 6.24 (4.8-10.8) K/uL RBC 3.95 L (4.7-6.1) M/uL Hgb 12.5 L (14.0-18.0) g/dL Hct 36.6 L (42-52) % MCV 92.7 (80-100) fL MCH 31.6 (25-34) pg MCHC 34.2 (32-36) g/dL RDW Std Deviation 46.7 H (36.4-46.3) fL RDW Coeff of Nona 13.7 (11.5-14.5) % Plt Count 191 (130-400) K/uL MPV 10.8 H (7.4-10.4) fL Immature Gran % (Auto) 0.2 % Neut % (Auto) 69.4 % Lymph % (Auto) 16.3 % Hayes % (Auto) 12.0 % Eos % (Auto) 1.9 % Baso % (Auto) 0.2 % Neut # (Auto) 4.33 (1.4-6.5) K/uL Lymph # (Auto) 1.02 L (1.2-3.4) K/uL Hayes # (Auto) 0.75 H (0.11-0.59) K/uL Eos # (Auto) 0.12 (0-0.5) K/uL Baso # (Auto) 0.01 (0-0.2) K/uL Immature Gran # (Auto) 0.01 (0.00-0.02) K/uL APTT 32.9 H (21.0-31.0) Seconds PTT Ratio 1.3 Sodium 138 (136-145) mmol/L Potassium 4.2 (3.5-5.1) mmol/L Chloride 108 H (98-107) mmol/L Carbon Dioxide 25 (21-32) mmol/L Anion Gap 6.0 (3-11) BUN 50 H (7-18) mg/dl Creatinine 2.69 H (0.6-1.4) mg/dl Est Cr Clr Drug Dosing 27.2 ml/min Est GFR ( Amer) 25.5 ml/min Est GFR (Non-Af Amer) 22.0 ml/min BUN/Creatinine Ratio 18.5 (10-20) Glucose 91 (70-99) mg/dl Calcium 9.5 (8.5-10.1) mg/dl Phosphorus 3.0 (2.5-4.9) mg/dl Magnesium 2.1 (1.8-2.4) mg/dl Total Bilirubin 0.5 (0.2-1) mg/dl Direct Bilirubin 0.2 (0-0.2) mg/dl AST 45 H (15-37) U/L ALT 20 (12-78) U/L Alkaline Phosphatase 41 L (45-117) U/L Total Creatine Kinase 444 H (39-308) U/L Troponin I 0.083 H* (0-0.045) ng/ml Total Protein 7.7 (6.4-8.2) gm/dl Albumin 4.0 (3.4-5.0) gm/dl Globulin 3.7 (2.5-4.0) gm/dl Albumin/Globulin Ratio 1.1 (0.9-2) Lipase 61 L (73-393) U/L TSH 1.030 (0.300-4.500) uIu/ml Urine Color Urine Appearance (Clear) Urine pH (4.5-7.5) Ur Specific Fosters (1.000-1.030) Urine Protein (Negative) Urine Glucose (UA) (Negative) Urine Ketones (Negative) Urine Blood (Negative) Urine Nitrite (Negative) Urine Bilirubin (Negative) Urine Urobilinogen (Negative) Ur Leukocyte Esterase (Negative) Urine WBC (Auto) (0-5) /hpf Urine RBC (Auto) (0-4) /hpf U Hyaline Cast (Auto) (0-5) /lpf U Epithel Cells (Auto) (0-5) /lpf Urine Bacteria (Auto) (Negative) COVID-19 Eval Order SARS-CoV-2 (PCR) (Negative) 10/01/20 10/01/20 10/01/20 Range/Units 20:15 20:15 22:21 WBC (4.8-10.8) K/uL RBC (4.7-6.1) M/uL Hgb (14.0-18.0) g/dL Hct (42-52) % MCV (80-100) fL MCH (25-34) pg MCHC (32-36) g/dL RDW Std Deviation (36.4-46.3) fL RDW Coeff of Nona (11.5-14.5) % Plt Count (130-400) K/uL MPV (7.4-10.4) fL Immature Gran % (Auto) % Neut % (Auto) % Lymph % (Auto) % Hayes % (Auto) % Eos % (Auto) % Baso % (Auto) % Neut # (Auto) (1.4-6.5) K/uL Lymph # (Auto) (1.2-3.4) K/uL Hayes # (Auto) (0.11-0.59) K/uL Eos # (Auto) (0-0.5) K/uL Baso # (Auto) (0-0.2) K/uL Immature Gran # (Auto) (0.00-0.02) K/uL APTT (21.0-31.0) Seconds PTT Ratio Sodium (136-145) mmol/L Potassium (3.5-5.1) mmol/L Chloride (98-107) mmol/L Carbon Dioxide (21-32) mmol/L Anion Gap (3-11) BUN (7-18) mg/dl Creatinine (0.6-1.4) mg/dl Est Cr Clr Drug Dosing ml/min Est GFR ( Amer) ml/min Est GFR (Non-Af Amer) ml/min BUN/Creatinine Ratio (10-20) Glucose (70-99) mg/dl Calcium (8.5-10.1) mg/dl Phosphorus (2.5-4.9) mg/dl Magnesium (1.8-2.4) mg/dl Total Bilirubin (0.2-1) mg/dl Direct Bilirubin (0-0.2) mg/dl AST (15-37) U/L ALT (12-78) U/L Alkaline Phosphatase (45-117) U/L Total Creatine Kinase (39-308) U/L Troponin I (0-0.045) ng/ml Total Protein (6.4-8.2) gm/dl Albumin (3.4-5.0) gm/dl Globulin (2.5-4.0) gm/dl Albumin/Globulin Ratio (0.9-2) Lipase (73-393) U/L TSH (0.300-4.500) uIu/ml Urine Color Yellow Urine Appearance Clear (Clear) Urine pH 8.0 H (4.5-7.5) Ur Specific Fosters 1.013 (1.000-1.030) Urine Protein 1+ H (Negative) Urine Glucose (UA) Negative (Negative) Urine Ketones Negative (Negative) Urine Blood Negative (Negative) Urine Nitrite Negative (Negative) Urine Bilirubin Negative (Negative) Urine Urobilinogen Negative (Negative) Ur Leukocyte Esterase Negative (Negative) Urine WBC (Auto) 0 (0-5) /hpf Urine RBC (Auto) 0-4 (0-4) /hpf U Hyaline Cast (Auto) 0 (0-5) /lpf U Epithel Cells (Auto) 5-10 H (0-5) /lpf Urine Bacteria (Auto) Negative (Negative) COVID-19 Eval Order Covid19 at [facility] SARS-CoV-2 (PCR) NEGATIVE (Negative) Administered Medications Apixaban (Apixaban 5 Mg Tablet) 5 mg PO BID NAA Stop: 11/01/20 02:23 Last Admin: 10/02/20 02:57 Dose: 5 mg Documented by: [id number] Sodium Chloride (Nss 1000ml) 1,000 mls @ 80 mls/hr IV .[id number] NAA Stop: 11/01/20 02:23 Last Admin: 10/02/20 02:57 Dose: 80 mls/hr Documented by: [id number] Discontinued Medications Sodium Chloride (Nss) 500 mls @ 999 mls/hr IV .[id number] Stop: 10/01/20 20:31 Last Infusion: 07/01/21 22:55 Dose: 0 mls/hr Documented by: [id number] Admin: 10/01/20 20:15 Dose: 999 mls/hr Documented by: [id number] Ceftriaxone Sodium (Rocephin) 2,000 mg in 70 mls @ 140 mls/hr IV NOW STA Stop: 10/01/20 23:59 Last Infusion: 10/02/20 01:47 Dose: 0 mls/hr Documented by: [id number] Admin: 10/02/20 01:13 Dose: 140 mls/hr Documented by: [id number] Imaging Data Radiologist's Impression: Chest X-Ray 10/01/20 19:58 XR chest 1V portable CLINICAL HISTORY: Chest Pain COMPARISON STUDY: Chest radiograph June 24, 2016. FINDINGS: Lung volumes are normal. Lungs are clear. There is no pneumothorax or pleural effusion. Mild cardiomegaly is unchanged. Mediastinal contours are normal. There is no evidence for pulmonary edema. Dual-lead left pacemaker is in place. Skinfold projects over the right chest. IMPRESSION: No acute cardiopulmonary findings. No change in appearance of the chest. ACT 112: Negative or not required by law. Electronically signed by: Yosef Still M.D. 10/01/2020 8:21 PM Discharge Plan Visit Data Chief Complaint: Fall Stated Complaint: FALL ED Provider: Chalo Pinedo Discharge Problem: Elevated troponin, CKD (chronic kidney disease), Generalized weakness, Recurrent falls, Acute urinary retention Patient Disposition: Admitted As Inpatient Discharge Instructions Interventions: ED Discharge Assessment Last Done: 10/02/20 02:10
[2020-10-01] MEDS ORDERED: cefTRIAXone SODIUM 2,000 MG/70 ML BAG IV STA (23:30)
--- NOTE | 2020-10-02 01:06 | History & Physical Report ---
Date of Service October 02, 2020 Assessment & Plan (1) Pyelonephritis: Pyelonephritis/acute urinary retention/BPH with LUTS- King catheter placed in ED Start tamsulosin 0.4 mg daily Follow urine culture and sensitivity Ceftriaxone 2 g IV daily Zofran 4 mg IV every 6 hours as needed Continue solifenacin 10 mg daily Present on Admission?: Yes (2) Acute urinary retention: See above Present on Admission?: Yes (3) BPH with obstruction/lower urinary tract symptoms: See above Present on Admission?: Yes (4) Elevated troponin: Elevated troponin/hypertrophic obstructive cardiomyopathy/CAD/hypertension- The patient will be admitted to telemetry for serial cardiac enzymes, serial EKG's, cardiac rhythm monitoring. Continue felodipine 10 mg daily, isosorbide mononitrate extended release 30 mg daily, lisinopril 40 mg daily and metoprolol tartrate 100 mg p.o. twice daily Elevated troponin likely type II [place]/supply demand mismatch Present on Admission?: Yes (5) Hypertrophic obstructive cardiomyopathy (HOCM): See above Present on Admission?: Yes (6) CKD (chronic kidney disease): Creatinine 2.69 upon admission, with range 1.94-2.62. Repeat daily with gentle rehydration with IV fluids Present on Admission?: Yes (7) Deep vein thrombosis (DVT) of left lower extremity: Continue apixaban Present on Admission?: Yes (8) Hypertriglyceridemia: Continue simvastatin 10 mg daily and fenofibrate 67 mg daily Present on Admission?: Yes (9) Diabetes: Reduce insulin glargine from 30 to 15 units subcu daily due to anticipate decreased oral intake. Place on Accu-Cheks before meals and at bedtime with NovoLog coverage per scale Check hemoglobin A1c Present on Admission?: Yes (10) Generalized weakness: Baseline deconditioning, aggravated by sepsis due to UTI and pyelonephritis Present on Admission?: Yes History of Present Illness Chief Complaint: The patient presents to the emergency department with complaint of generalized weakness, sudden onset of chills and shakes, and is status post a controlled fall a few days ago without injury Primary Care Provider: Tino Pete, The patient is a 75-year-old male with a past medical history including CKD, left lower extremity DVT, ambulatory dysfunction, anxiety and depression, urinary incontinence, BPH with LUTS, diabetes mellitus, memory impairment, anemia of chronic disease, hypertrophic obstructive cardiomyopathy, proliferative diabetic retinopathy, squamous cell carcinoma, hypertriglyceridemia, vitamin D deficiency, secondary hyperparathyroidism, pacemaker, cardiomyopathy and spinal stenosis. He presents to the emergency department with acute onset of chills and shakes, generalized weakness and history of a recent fall. He is mildly confused, and not able to relate more of his symptoms. In the emergency department, patient was noted by bladder scan to have of 800 cc of urinary retention, and King catheter was placed. Allergies Allergy/AdvReac Type Severity Reaction Status Date / Time No Known Allergies Allergy ` Verified 10/01/20 21:38 Home Medications Medication Instructions Recorded Confirmed Type cholecalciferol (vitamin D3) 25 1,000 units PO DAILY #90 cap 09/09/19 10/01/20 Rx mcg (1,000 unit) capsule fenofibrate micronized 67 mg 67 mg PO DAILY #90 cap 12/05/19 10/01/20 Rx capsule felodipine 10 mg tablet,extended 10 mg PO DAILY #90 tab 02/04/20 10/01/20 Rx release 24 hr isosorbide mononitrate 30 mg 30 mg PO DAILY #90 tab 02/07/20 10/01/20 Rx tablet,extended release 24 hr lisinopril 40 mg tablet 40 mg PO DAILY #90 tab 02/10/20 10/01/20 Rx metoprolol tartrate 100 mg tablet 100 mg PO BID #180 tab 05/11/20 10/01/20 Rx blood sugar diagnostic #100 ea 06/29/20 09/14/20 Rx apixaban 5 mg tablet 5 mg PO BID #60 tab 07/13/20 10/01/20 Rx insulin glargine U-300 conc 300 30 unit SUBCUT DAILY ml 07/13/20 10/01/20 History unit/mL (1.5 mL) subcutaneous pen simvastatin 10 mg tablet 10 mg PO DAILY #90 tab 08/18/20 10/01/20 Rx solifenacin 10 mg tablet 10 mg PO DAILY #30 tab 08/19/20 10/01/20 Rx allopurinol 300 mg PO UD 10/01/20 10/01/20 History Past Med/Surg History Medical History BPH with obstruction/lower urinary tract symptoms Deep vein thrombosis (DVT) of left lower extremity Diabetes Hypertension Low back pain Mobitz (type) II atrioventricular block Proteinuria Skin carcinoma Subclavian vein thromboembolism, acute Syncope and collapse Surgical History H/O arthroscopy of knee History of cataract surgery Status post placement of cardiac pacemaker Family History Mother Ovarian cancer Diabetes Father Diabetes Unknown Coronary heart disease Denies family history of Prostate cancer Myocardial infarction Breast cancer Colorectal cancer Social History Smoking Status: Never smoker Second Hand Exposure: No; Hx Alcohol Use: No Hx Substance Use: No Preferred Language: Indonesian Communication Ability: Effective 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 He can relate that he has had fevers and chills, and has felt generally weak, but cannot be more specific about his symptoms. Physical Exam Physical Exam: The patient is awake, confused, well developed and well nourished, normocephalic and atraumatic, lying in bed and in mild distress associated with chills and shakes. HEENT--PERRL, EOMI, mucous membranes and oropharynx dry. Neck--supple. No JVD. No bruits. Thyroid normal, trachea midline, no adenopathy. Heart--normal S1 and S2. No murmurs, rubs or gallops. Lungs--clear bilaterally, no respiratory distress, no accessory muscle use. Abdomen--normal bowel sounds and soft. Nontender. Nondistended. Extremities--right lower extremity with 1+ pretibial pitting edema. Left lower extremity 2+ pretibial pitting edema Dermatologic--scattered ecchymoses and surface abrasions on lower extremities Neurologic--cranial nerves II through XII grossly intact. Rheumatologic--normal range of motion. Psychiatric--confused Results & Data Results & Data ([facility]) Vital Signs (Past 12 Hours) Vital Signs Temp Pulse Resp BP Pulse Ox 10/02/20 01:01 55 L 20 97 10/02/20 01:00 57 L 23 160/70 H 96 10/02/20 00:40 88 22 177/105 H 97 10/02/20 00:31 107 H 24 10/02/20 00:00 98 10/01/20 23:32 97 10/01/20 23:31 160/101 H 96 10/01/20 23:00 98 10/01/20 22:00 168/69 H 96 10/01/20 21:30 57 L 21 155/62 H 96 10/01/20 20:17 20 96 10/01/20 20:01 65 16 167/75 H 98 10/01/20 20:00 63 24 98 10/01/20 19:56 60 22 97 10/01/20 19:55 67 20 177/94 H 98 10/01/20 19:54 97.9 F 60 20 167/75 H 98 Laboratory Results Laboratory Results WBC 6.24 K/uL (4.8-10.8) 10/01/20 20:05 RBC 3.95 M/uL (4.7-6.1) L 10/01/20 20:05 Hgb 12.5 g/dL (14.0-18.0) L 10/01/20 20:05 Hct 36.6 % (42-52) L 10/01/20 20:05 MCV 92.7 fL (80-100) 10/01/20 20:05 MCH 31.6 pg (25-34) 10/01/20 20:05 MCHC 34.2 g/dL (32-36) 10/01/20 20:05 RDW Std Deviation 46.7 fL (36.4-46.3) H 10/01/20 20:05 RDW Coeff of Nona 13.7 % (11.5-14.5) 10/01/20 20:05 Plt Count 191 K/uL (130-400) 10/01/20 20:05 MPV 10.8 fL (7.4-10.4) H 10/01/20 20:05 Immature Gran % (Auto) 0.2 % 10/01/20 20:05 Neut % (Auto) 69.4 % 10/01/20 20:05 Lymph % (Auto) 16.3 % 10/01/20 20:05 [place] % (Auto) 12.0 % 10/01/20 20:05 Eos % (Auto) 1.9 % 10/01/20 20:05 Baso % (Auto) 0.2 % 10/01/20 20:05 Neut # (Auto) 4.33 K/uL (1.4-6.5) 10/01/20 20:05 Lymph # (Auto) 1.02 K/uL (1.2-3.4) L 10/01/20 20:05 [place] # (Auto) 0.75 K/uL (0.11-0.59) H 10/01/20 20:05 Eos # (Auto) 0.12 K/uL (0-0.5) 10/01/20 20:05 Baso # (Auto) 0.01 K/uL (0-0.2) 10/01/20 20:05 Immature Gran # (Auto) 0.01 K/uL (0.00-0.02) 10/01/20 20:05 APTT 32.9 Seconds (21.0-31.0) H 10/01/20 20:05 PTT Ratio 1.3 10/01/20 20:05 Sodium 138 mmol/L (136-145) 10/01/20 20:05 Potassium 4.2 mmol/L (3.5-5.1) 10/01/20 20:05 Chloride 108 mmol/L (98-107) H 10/01/20 20:05 Carbon Dioxide 25 mmol/L (21-32) 10/01/20 20:05 Anion Gap 6.0 (3-11) 10/01/20 20:05 BUN 50 mg/dl (7-18) H 10/01/20 20:05 Creatinine 2.69 mg/dl (0.6-1.4) H 10/01/20 20:05 Est Cr Clr Drug Dosing 27.2 ml/min 10/01/20 20:05 Est GFR ( Amer) 25.5 ml/min 10/01/20 20:05 Est GFR (Non-Af Amer) 22.0 ml/min 10/01/20 20:05 BUN/Creatinine Ratio 18.5 (10-20) 10/01/20 20:05 Glucose 91 mg/dl (70-99) 10/01/20 20:05 Calcium 9.5 mg/dl (8.5-10.1) 10/01/20 20:05 Phosphorus 3.0 mg/dl (2.5-4.9) 10/01/20 20:05 Magnesium 2.1 mg/dl (1.8-2.4) 10/01/20 20:05 Total Bilirubin 0.5 mg/dl (0.2-1) 10/01/20 20:05 Direct Bilirubin 0.2 mg/dl (0-0.2) 10/01/20 20:05 AST 45 U/L (15-37) H 10/01/20 20:05 ALT 20 U/L (12-78) 10/01/20 20:05 Alkaline Phosphatase 41 U/L (45-117) L 10/01/20 20:05 Total Creatine Kinase 444 U/L (39-308) H 10/01/20 20:05 Troponin I 0.083 ng/ml (0-0.045) H* 10/01/20 20:05 Total Protein 7.7 gm/dl (6.4-8.2) 10/01/20 20:05 Albumin 4.0 gm/dl (3.4-5.0) 10/01/20 20:05 Globulin 3.7 gm/dl (2.5-4.0) 10/01/20 20:05 Albumin/Globulin Ratio 1.1 (0.9-2) 10/01/20 20:05 Lipase 61 U/L (73-393) L 10/01/20 20:05 TSH 1.030 uIu/ml (0.300-4.500) 10/01/20 20:05 Urine Color Yellow 10/01/20 22:21 Urine Appearance Clear (Clear) 10/01/20 22:21 Urine pH 8.0 (4.5-7.5) H 10/01/20 22:21 Ur Specific [place] 1.013 (1.000-1.030) 10/01/20 22:21 Urine Protein 1+ (Negative) H 10/01/20 22:21 Urine Glucose (UA) Negative (Negative) 10/01/20 22:21 Urine Ketones Negative (Negative) 10/01/20 22:21 Urine Blood Negative (Negative) 10/01/20 22:21 Urine Nitrite Negative (Negative) 10/01/20 22:21 Urine Bilirubin Negative (Negative) 10/01/20 22:21 Urine Urobilinogen Negative (Negative) 10/01/20 22:21 Ur Leukocyte Esterase Negative (Negative) 10/01/20 22:21 Urine WBC (Auto) 0 /hpf (0-5) 10/01/20 22:21 Urine RBC (Auto) 0-4 /hpf (0-4) 10/01/20 22:21 U Hyaline Cast (Auto) 0 /lpf (0-5) 10/01/20 22:21 U Epithel Cells (Auto) 5-10 /lpf (0-5) H 10/01/20 22:21 Urine Bacteria (Auto) Negative (Negative) 10/01/20 22:21 COVID-19 Eval Order Covid19 at [facility] 10/01/20 20:15 SARS-CoV-2 (PCR) NEGATIVE (Negative) 10/01/20 20:15 Impressions Chest X-Ray 10/01/20 19:58 XR chest 1V portable CLINICAL HISTORY: Chest Pain COMPARISON STUDY: Chest radiograph June 24, 2016. FINDINGS: Lung volumes are normal. Lungs are clear. There is no pneumothorax or pleural effusion. Mild cardiomegaly is unchanged. Mediastinal contours are normal. There is no evidence for pulmonary edema. Dual-lead left pacemaker is in place. [place]old projects over the right chest. IMPRESSION: No acute cardiopulmonary findings. No change in appearance of the chest. ACT 112: Negative or not required by law. Electronically signed by: Yosef Still M.D. 10/01/2020 8:21 PM Code Status & VTE Plan Code Status Full code VTE Prophylaxis Plan VTE Prophylaxis will be ordered: Yes PG Care Time/CCT Total # of Minutes Spent Total Time Spent with Patient: Total time spent is greater than 50% in coordination of care (as documented) at patient's floor/unit and/or counseling patient: Coding Level of Care Code 20594 OBS Care - Level 3 Diagnoses Pyelonephritis N12 Acute urinary retention R33.8 BPH with obstruction/lower urinary tract symptoms N40.1; N13.8 Elevated troponin R77.8 Hypertrophic obstructive cardiomyopathy (HOCM) I42.1 CKD (chronic kidney disease) N18.9 Deep vein thrombosis (DVT) of left lower extremity I82.402 Hypertriglyceridemia E78.1 Diabetes E11.9 Generalized weakness R53.1
[2020-10-02] MEDS ORDERED: GLUCAGON FOR INJ 1 MG VIAL SQ PRN (02:24)
[2020-10-02] MEDS ORDERED: allopurinoL 300 MG TAB PO SCH (02:24)
[2020-10-02] MEDS ORDERED: ONDANSETRON INJ 2 MG/ML 2 ML VIAL IV PRN (02:24)
[2020-10-02] MEDS ORDERED: CARBOHYDRATES FOR HYPOGLYCEMIA PO PRN (02:24)
[2020-10-02] MEDS ORDERED: GLUCOSE 40% GEL 15 GM TUBE PO PRN (02:24)
[2020-10-02] MEDS ORDERED: GLUCOSE 10 TABS/TUBE PO PRN (02:24)
[2020-10-02] MEDS ORDERED: DEXTROSE 50% 50 ML SYRINGE IV PRN (02:24)
[2020-10-02] MEDS: APIXABAN 5 MG TABLET PO SCH ×3 (02:57→19:50)
[2020-10-02] MEDS: SODIUM CHLORIDE 0.9% 1000ML 1,000 ML IV SCH ×2 (02:57→15:37)
[2020-10-02] MEDS ORDERED: TAMSULOSIN HCL 0.4 MG CAP PO ONE (05:09)
[2020-10-02 06:54] LABS: Basophils # (auto) 0.01 K/uL (0-0.2); Basophils % (auto) 0.2 %; Eosinophils # (auto) 0.18 K/uL (0-0.5); Eosinophils % (auto) 2.7 %; Hematocrit (blood only) 35.9 % (42-52); Hemoglobin 12.2 g/dL (14.0-18.0); Immature Granulocytes # (auto) 0.01 K/uL (0.00-0.02); Immature Granulocytes % (auto) 0.2 %; Lymphocytes # (auto) 1.37 K/uL (1.2-3.4); Lymphocytes % (auto) 20.8 %; Mean Corpuscular Hemoglobin 31.2 pg (25-34); Mean Corpuscular Volume 91.8 fL (80-100); Mean Platelet Volume 10.1 fL (7.4-10.4); Monocytes # (auto) 0.67 K/uL (0.11-0.59); Monocytes % (auto) 10.2 %; Neutrophils # (auto) 4.36 K/uL (1.4-6.5); Neutrophils % (auto) 65.9 %; Platelet Count 157 K/uL (130-400); RDW Coefficient of Variation 13.8 % (11.5-14.5); RDW Standard Deviation 46.2 fL (36.4-46.3); Red Blood Count 3.91 M/uL (4.7-6.1)
--- NOTE | 2020-10-02 07:03 | CT Scan Report ---
CT head/brain wo con CLINICAL HISTORY: Head pain status post trauma COMPARISON STUDY: No previous studies for comparison. TECHNIQUE: Axial CT of the brain is performed from the vertex to the skull base. IV contrast was not administered for this examination. A dose lowering technique was utilized adhering to the principles of ALARA. CT DOSE: 729.78 mGycm FINDINGS: No intra or extra-axial mass lesions are visualized. There is no CT evidence of acute cortical infarc tion. There is no evidence of midline shift. There is no acute hemorrhage. No calvarial fractures ar e visualized. There are patchy white matter hypodensities likely on a small vessel basis. There is no evidence of pathologic ventricular dilatation. There is no evidence of acute sinusitis IMPRESSION: No acute intracranial findings ACT 112: Negative or not required by law. Electronically signed by: Mayito Bolton M.D. 10/02/2020 7:02 AM
[2020-10-02 07:29] LABS: Albumin Level 3.5 gm/dl (3.4-5.0); BUN Creatinine Ratio 18.7 (10-20); Calcium 8.9 mg/dl (8.5-10.1); Creatinine Clr Calc Pharmacy 31.4 ml/min; Est GFR (African American) 32.3 ml/min; Est GFR (Non-African American) 27.9 ml/min; Potassium 3.6 mmol/L (3.5-5.1)
[2020-10-02 07:35] LABS: Bilirubin,Total 0.6 mg/dl (0.2-1); Globulin 3.4 gm/dl (2.5-4.0); Total Protein 6.9 gm/dl (6.4-8.2); Troponin I 0.162 ng/ml (0-0.045)
[2020-10-02] MEDS: FELODIPINE 5 MG TABCR PO SCH (08:06)
[2020-10-02] MEDS: ISOSORBIDE MONO EXTENDED REL 30 MG TABCR PO SCH (08:06)
[2020-10-02] MEDS: FENOFIBRATE NANOCRYSTALLIZED 48 MG TABLET PO SCH (08:07)
[2020-10-02] MEDS: lisinopril 40 MG TAB PO SCH (08:07)
[2020-10-02] MEDS: METOPROLOL TARTRATE 100 MG TAB PO SCH ×2 (08:07→19:50)
[2020-10-02] MEDS: SIMVASTATIN 10 MG TAB PO SCH (08:07)
[2020-10-02] MEDS: CHOLECALCIFEROL 1,000 UNITS 25 MCG TAB PO SCH (08:07)
[2020-10-02 08:19] LABS: Estimated Average Glucose 120 mg/dl; Hemoglobin A1C 5.8 % (4.5-5.6)
--- NOTE | 2020-10-02 08:32 | CT Scan Report ---
CT SCAN OF THE ABDOMEN AND PELVIS WITHOUT IV CONTRAST CLINICAL HISTORY: Generalized weakness. Urinary urgency. COMPARISON STUDY: Renal ultrasound dated 07/07/2009. TECHNIQUE: CT scan of the abdomen and pelvis is performed from the lung bases to the proximal femora. Images are reviewed in the axial, sagittal, and coronal planes. IV contrast was not administered for this examination. Note that the examination is significantly suboptimal without oral and IV contrast . There is also motion artifact and streak artifact from the arms which could not be elevated above t he abdomen. A dose lowering technique was utilized adhering to the principles of ALARA. CT DOSE: 1270.29 mGycm FINDINGS: Lung bases: The heart is enlarged and without pericardial effusion. Pacemaker leads are noted. The billy ng bases are clear. There is a tiny hiatal hernia. Liver: Evaluation of the liver is degraded by streak artifact. The unenhanced liver is normal in size , contour, and attenuation. There is no intrahepatic biliary ductal dilatation. Gallbladder: Unremarkable. Spleen: Normal in size and attenuation. Pancreas: The unenhanced pancreas is atrophic and grossly unremarkable. Adrenal glands: Unremarkable. Kidneys: The unenhanced kidneys are atrophic and without hydronephrosis. There are no renal calculi i dentified. There is no evidence of contour deforming renal mass lesion. Abdominal vasculature: The abdominal aorta is normal in course and caliber noting moderate atheroscle rotic calcification. Bowel: There is rectosigmoid fecal retention and moderate constipation. No bowel obstruction is seen. The appendix is well-visualized and normal. Peritoneum: There is no intraperitoneal free air or abdominal ascites. A 2.1 cm nodule in the right u pper quadrant posterior the liver is seen on image #146. This may represent a splenule and is of low suspicion. Lymphadenopathy: None. Pelvic viscera: The prostate gland is enlarged and heterogeneous noting median lobe hypertrophy. The bladder is distended but otherwise normal in appearance. Skeletal structures: The skeletal structures are osteopenic. There is moderate to advanced lumbosacra l spondylosis. No lytic or blastic lesions are seen. IMPRESSION: 1. Suboptimal examination without oral and IV contrast. There is also streak and motion artifact. 2. There are no acute infectious or inflammatory findings in the abdomen or pelvis. 3. Prostatomegaly and bladder distention. 4. There is rectosigmoid fecal retention and moderate constipation. 5. Cardiomegaly and cardiac pacemaker. 6. Additional findings as above. ACT 112: Negative or not required by law. Electronically signed by: Nasim Clark M.D. 10/02/2020 8:30 AM
[2020-10-02] MEDS ORDERED: INSULIN GLARGINE SOLOSTAR 100 UNITS/ML 3 ML PEN SC SCH (09:00)
[2020-10-02] MEDS: INSULIN ASPART 100 UNITS/ML 3 ML PEN SC SCH ×4 (09:21→21:18)
[2020-10-02] MEDS: INSULIN GLARGINE SOLOSTAR 100 UNITS/ML 3 ML PEN SC SCH (09:23)
--- NOTE | 2020-10-02 12:38 | Electrocardiogram Report ---
Test Reason : Blood Pressure : / mmHG Vent. Rate : 054 BPM Atrial Rate : 058 BPM P-R Int : 000 ms QRS Dur : 144 ms QT Int : 474 ms P-R-T Axes : 000 -16 000 degrees QTc Int : 449 ms Poor data quality, interpretation may be adversely affected Atrial fibrillation with slow ventricular response Right bundle branch block Cannot rule out Anterior infarct , age undetermined Abnormal ECG When compared with ECG of 23-JUN-2016 13:14, Atrial fibrillation has replaced Electronic atrial pacemaker Right bundle branch block is now Present Minimal criteria for Anterior infarct are now Present Confirmed by Adelfo Prieto ([id number]) on 10/02/2020 12:38:35 PM Referred By: REFERRED SELF Confirmed By:Adelfo Prieto
[2020-10-02] MEDS ORDERED: SOD PHOSPHATE/SOD BIPHOSPHATE ENEMA 132 ML BTL PR STA (14:25)
[2020-10-02] MEDS ORDERED: SOD PHOSPHATE/SOD BIPHOSPHATE ENEMA 132 ML BTL PR ONE (17:37)
[2020-10-02] MEDS: FINASTERIDE 5 MG TAB PO SCH (17:41)
[2020-10-02] MEDS: TAMSULOSIN HCL 0.4 MG CAP PO SCH (19:50)
--- NOTE | 2020-10-02 20:53 | Hospitalist Progress Note ---
Date of Service October 02, 2020 Assessment & Plan (1) Recurrent falls: multiple falls over the last few weeks. his brother also mentioned that his memory had been off during this time period. CT head w/o acute findings. he appears to have cerebellar signs on exam today - localizing to left ce rebellum. needs MRI brain - will need to coordinate MRI dept with device rep due to pacemaker. r/o subacute CVA. it is a SureScan device. he no longer has a loop recorder. pacer interrogation requested. patient was placed on Rocephin empirically while awaiting blood/urine cx's. reasonable to continue - d/c if cultures are negative and no infection found. replace low b12. PT, OT evals. (2) B12 deficiency: start parenteral replacement while here then oral replacement at discharge (3) Generalized weakness: urine cx thus far neg; and u/a was not particularly suspicious for UTI. FARZAD w/o prostatitis. blood cx's thus far neg. COVID neg. he has cerebellar signs on exam today - mild ataxia with F-N-F maneuver; leaning to left in bed. MRI brain ordered - r/o left-sided cerebellar stroke. CT head at admission noted. I checked b12 level today given his ambulatory dysfunction and ataxia -- in the mid 200s. Likely deficient. start IM shots while here. (4) Pacemaker: I have ordered a pacer interrogation to r/o dysrhythmia as the cause of his falls. It is surescan device and thus should be MRI compatible. I spoke with Dr Prieto - he previously had a loop recorder - it is no longer imbedded. pacer was placed for high-degree AV block . (5) Acute urinary retention: 2nd BPH. u/a not suspicious for UTI. FARZAD not suspicious for prostatitis. fecal impaction can make this issue worse as well. adding finasteride to his flomax. enemas for fecal impaction. fung. consider spontaneous voiding trial in a few days. (6) BPH with obstruction/lower urinary tract symptoms: fecal impaction will make voiding worse. however, he has BPH at baseline likely being the main culprit. already on flomax at home. add finasteride. no evidence of prostatitis on examination. with his event gait disturbance, falls, memory difficulties, and voiding issues -- NPH?? obtaining MRI, but vents on CT head are not abnormally large. (7) Elevated troponin: Likely myocardial demand ischemia in the setting of BRIANNA, falls, etc. (8) Hypertrophic obstructive cardiomyopathy (HOCM): 05/2020 echo showed resolution of prior findings to suggest this diagnosis (9) Deep vein thrombosis (DVT) of left lower extremity: Continue apixaban (10) Hypertriglyceridemia: Continue simvastatin 10 mg daily and fenofibrate 67 mg daily (11) Diabetes: BSGs well controlled on reduced lantus dosing. cont novolog w/ meals. (12) Rhabdomyolysis: mild, 2nd to fall. repeat CPK today now normal. (13) CKD (chronic kidney disease): CrCL at baseline high 20s. Thus, stage 4 at baseline. now superimposed BRIANNA - see below. (14) BRIANNA (acute kidney injury): likely obstructive in nature given the urinary retention at admission. peak Cr 2.6, now 2.2. cont fung. cont gentle hydration. repeat BMP am. baseline Cr appears to be about 2. (15) Hypertension: thus far BPs have been high & labile. he is on complex regimen including felodipine, imdur, lisinopril, and metoprolol BID. due to concerns of possible CVA will allow some permissiveness while MRI is being obtained. (16) Fecal impaction: on CT as well as on examination today. fleets x 1 now. may need enema again tomorrow. (17) DVT prophylaxis: jackson ORTEZ brother updated at bedside Admission and Anticipated Discharge Date Admission Date: October 02, 2020 Subjective patient resting comfortably in bed during the visit. he reports 3-4 weeks of "my legs being weak" along with ambulatory dysfunction during that time. he has had multiple falls over the last few weeks. he feels like he is going to fall backwards when it occurs. he has not hit his head. he doesn't have prodromal dizziness or near-syncope. with respect to voiding, he has noted worsening stream, dribbling, and incomplete emptying. chronic, but getting worse. he has also had significant constipation of late with having to strain at stool. lives alone - has no children. brother lives close by. in fact his brother came to bedside during the visit. Review of Systems Constitutional: no fever, no chills and no anorexia (Ate 100% of meals today ) Respiratory: no cough and no dyspnea Cardiovascular: no chest pain Gastrointestinal: + constipation; no abdominal pain Musculoskeletal: no back pain Neurologic: + gait abnormality; no localized weakness Physical Exam Constitutional: + obese; no acute distress and no altered mental status while in bed he is leaning/falling to his LEFT; when he is made straight in bed he again leans to the left Eyes: no nystagmus ENMT: external ear and nose normal, oropharynx normal Respiratory: normal respiratory effort, lungs clear to auscultation Cardiovascular: Rate/Rhythm: regular rate and regular rhythm Heart Sounds: normal S1, normal S2 and + murmur Vessels: posterior tibial pulses present and dorsalis pedis pulses present; no JVD Extremities: + edema (<1+ left leg; left leg is larger than right leg ) Gastrointestinal (Abdomen): normal bowel sounds, soft, nontender, no hepatosplenomegaly Rectal Exam: + fecal impaction; no rectal tenderness Neurologic: moves all extremities; no focal motor deficits Cranial Nerves: normal facial strength Coordination: + abnormal [id number] test (Left hand) leans to the L in bed Psychiatric: A+Ox3, euthymic affect Genitourinary: no high-riding testicle prostate on FARZAD - enlarged; but not boggy, not tender, no nodules Results & Data Results & Data ([facility]) Vital Signs (Past 12 Hours) Vital Signs Temp Pulse Pulse Resp BP Pulse Ox 10/02/20 19:49 36.5 C 64 20 180/69 H 99 10/02/20 16:18 50 L 10/02/20 15:42 36.8 C 53 L 18 123/57 L 96 10/02/20 11:58 36.5 C 50 L 24 106/42 L 95 Laboratory Results Laboratory Results - last 24 hr 10/02/20 10/02/20 10/02/20 06:37 06:37 06:37 WBC 6.60 RBC 3.91 L Hgb 12.2 L Hct 35.9 L MCV 91.8 MCH 31.2 MCHC 34.0 RDW Std Deviation 46.2 RDW Coeff of Nona 13.8 Plt Count 157 MPV 10.1 Immature Gran % (Auto) 0.2 Neut % (Auto) 65.9 Lymph % (Auto) 20.8 [place] % (Auto) 10.2 Eos % (Auto) 2.7 Baso % (Auto) 0.2 Neut # (Auto) 4.36 Lymph # (Auto) 1.37 [place] # (Auto) 0.67 H Eos # (Auto) 0.18 Baso # (Auto) 0.01 Immature Gran # (Auto) 0.01 Sodium 139 Potassium 3.6 Chloride 109 H Carbon Dioxide 26 Anion Gap 4.0 BUN 41 H Creatinine 2.21 H D Est Cr Clr Drug Dosing 31.4 Est GFR ( Amer) 32.3 Est GFR (Non-Af Amer) 27.9 BUN/Creatinine Ratio 18.7 Glucose 83 POC Glucose Estimat Average Glucose 120 Hemoglobin A1c 5.8 H Calcium 8.9 Total Bilirubin 0.6 AST 39 H ALT 17 Alkaline Phosphatase 38 L Total Creatine Kinase Troponin I 0.162 H* Total Protein 6.9 Albumin 3.5 Globulin 3.4 Albumin/Globulin Ratio 1.0 Vitamin B12 10/02/20 10/02/20 10/02/20 07:15 10:57 12:31 WBC RBC Hgb Hct MCV MCH MCHC RDW Std Deviation RDW Coeff of Nona Plt Count MPV Immature Gran % (Auto) Neut % (Auto) Lymph % (Auto) [place] % (Auto) Eos % (Auto) Baso % (Auto) Neut # (Auto) Lymph # (Auto) [place] # (Auto) Eos # (Auto) Baso # (Auto) Immature Gran # (Auto) Sodium Potassium Chloride Carbon Dioxide Anion Gap BUN Creatinine Est Cr Clr Drug Dosing Est GFR ( Amer) Est GFR (Non-Af Amer) BUN/Creatinine Ratio Glucose POC Glucose 86 176 H Estimat Average Glucose Hemoglobin A1c Calcium Total Bilirubin AST ALT Alkaline Phosphatase Total Creatine Kinase Troponin I 0.198 H* Total Protein Albumin Globulin Albumin/Globulin Ratio Vitamin B12 10/02/20 10/02/20 10/02/20 16:04 20:34 21:25 WBC RBC Hgb Hct MCV MCH MCHC RDW Std Deviation RDW Coeff of Nona Plt Count MPV Immature Gran % (Auto) Neut % (Auto) Lymph % (Auto) [place] % (Auto) Eos % (Auto) Baso % (Auto) Neut # (Auto) Lymph # (Auto) [place] # (Auto) Eos # (Auto) Baso # (Auto) Immature Gran # (Auto) Sodium Potassium Chloride Carbon Dioxide Anion Gap BUN Creatinine Est Cr Clr Drug Dosing Est GFR ( Amer) Est GFR (Non-Af Amer) BUN/Creatinine Ratio Glucose POC Glucose 113 H 137 H Estimat Average Glucose Hemoglobin A1c Calcium Total Bilirubin AST ALT Alkaline Phosphatase Total Creatine Kinase 302 Troponin I 0.156 H* Total Protein Albumin Globulin Albumin/Globulin Ratio Vitamin B12 10/02/20 21:25 WBC RBC Hgb Hct MCV MCH MCHC RDW Std Deviation RDW Coeff of Nona Plt Count MPV Immature Gran % (Auto) Neut % (Auto) Lymph % (Auto) [place] % (Auto) Eos % (Auto) Baso % (Auto) Neut # (Auto) Lymph # (Auto) [place] # (Auto) Eos # (Auto) Baso # (Auto) Immature Gran # (Auto) Sodium Potassium Chloride Carbon Dioxide Anion Gap BUN Creatinine Est Cr Clr Drug Dosing Est GFR ( Amer) Est GFR (Non-Af Amer) BUN/Creatinine Ratio Glucose POC Glucose Estimat Average Glucose Hemoglobin A1c Calcium Total Bilirubin AST ALT Alkaline Phosphatase Total Creatine Kinase Troponin I Total Protein Albumin Globulin Albumin/Globulin Ratio Vitamin B12 262 PG Care Time/CCT Total # of Minutes Spent Total Time Spent with Patient: Total time spent is greater than 50% in coordination of care (as documented) at patient's floor/unit and/or counseling patient: Coding Level of Care Code 15360 Subseq Obs Care Lvl 3 Diagnoses Recurrent falls R29.6 B12 deficiency E53.8 Generalized weakness R53.1 Pacemaker Z95.0 Acute urinary retention R33.8 BPH with obstruction/lower urinary tract symptoms N40.1; N13.8 Elevated troponin R77.8 Hypertrophic obstructive cardiomyopathy (HOCM) I42.1 Deep vein thrombosis (DVT) of left lower extremity I82.402 Hypertriglyceridemia E78.1 Diabetes E11.9 Rhabdomyolysis M62.82 CKD (chronic kidney disease) N18.4 Chronic kidney disease stage: stage 4 (severe) BRIANNA (acute kidney injury) N17.9 Hypertension I10 Fecal impaction K56.41 DVT prophylaxis Z29.9 (1) CKD (chronic kidney disease) Chronic kidney disease stage: stage 4 (severe) Qualified Code(s): N18.4 - Chronic kidney disease, stage 4 (severe)
[2020-10-02] MEDS: cefTRIAXone SODIUM 2,000 MG in DEXTROSE 5% 50 ML IV SCH (21:34)
[2020-10-02 22:00] LABS: Troponin I 0.156 ng/ml (0-0.045)
[2020-10-03] MEDS: SODIUM CHLORIDE 0.9% 1000ML 1,000 ML IV SCH ×2 (04:03→16:01)
[2020-10-03 08:00] LABS: Calcium 8.4 mg/dl (8.5-10.1); Creatinine Clr Calc Pharmacy 34.1 ml/min; Est GFR (African American) 35.8 ml/min; Est GFR (Non-African American) 30.9 ml/min; Potassium 3.7 mmol/L (3.5-5.1)
[2020-10-03] MEDS: CHOLECALCIFEROL 1,000 UNITS 25 MCG TAB PO SCH (08:58)
[2020-10-03] MEDS: APIXABAN 5 MG TABLET PO SCH ×2 (08:58→19:36)
[2020-10-03] MEDS: CYANOCOBALAMIN 1000 MCG/ML VIAL IM SCH (08:58)
[2020-10-03] MEDS: SIMVASTATIN 10 MG TAB PO SCH (08:59)
[2020-10-03] MEDS: METOPROLOL TARTRATE 100 MG TAB PO SCH ×2 (08:59→19:36)
[2020-10-03] MEDS: ISOSORBIDE MONO EXTENDED REL 30 MG TABCR PO SCH (08:59)
[2020-10-03] MEDS: FENOFIBRATE NANOCRYSTALLIZED 48 MG TABLET PO SCH (08:59)
[2020-10-03] MEDS: FINASTERIDE 5 MG TAB PO SCH (08:59)
[2020-10-03] MEDS: FELODIPINE 5 MG TABCR PO SCH (08:59)
[2020-10-03] MEDS: lisinopril 40 MG TAB PO SCH (08:59)
[2020-10-03] MEDS: INSULIN ASPART 100 UNITS/ML 3 ML PEN SC SCH ×4 (10:06→21:44)
--- NOTE | 2020-10-03 14:19 | Hospitalist Progress Note ---
Date of Service October 03, 2020 Assessment & Plan (1) Recurrent falls: multiple falls over the last few weeks. his brother also mentioned that his memory had been off during this time period. CT head w/o acute findings. he appeared to have cerebellar signs on exam- localizing to left cerebellum. 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 reasonable to continue - d/c if cultures are negative and no infection found by tomorrow. replace low b12. PT, OT evals. (2) B12 deficiency: start parenteral replacement while here then oral replacement at discharge (3) Generalized weakness: urine cx thus far neg; and u/a was not particularly suspicious for UTI. FARZAD w/o prostatitis. blood cx's thus far neg. COVID neg. he has cerebellar signs on exam - mild ataxia with F-N-F maneuver; leaning to left in bed. 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 CT head at admission noted. b12 level given his ambulatory dysfunction and ataxia -- in the mid 200s. Likely deficient. start IM shots while here. (4) Pacemaker: pacer interrogation to r/o dysrhythmia as the cause of his falls. pacer was placed for high-degree AV block . (5) Acute urinary retention: 2nd BPH. u/a not suspicious for UTI. FARZAD not suspicious for prostatitis. fecal impaction can make this issue worse as well. adding finasteride to his flomax. enemas for fecal impaction have not been successful. Maintain fung catheter and have him follow-up with urology in 1 to 2 weeks as an outpatient -Discontinue solifenacin (6) BPH with obstruction/lower urinary tract symptoms: fecal impaction will make voiding worse. however, he has BPH at baseline likely being the main culprit. already on flomax at home. add finasteride. no evidence of prostatitis on examination. with his event gait disturbance, falls, memory difficulties, and voiding issues -- NPH?? obtaining MRI, but vents on CT head are not abnormally large. (7) Elevated troponin: Likely myocardial demand ischemia in the setting of BRIANNA, falls, etc. (8) Hypertrophic obstructive cardiomyopathy (HOCM): 05/2020 echo showed resolution of prior findings to suggest this diagnosis (9) Deep vein thrombosis (DVT) of left lower extremity: Recently diagnosed in 04/2020 Continue apixaban for at least 6 months (10) Hypertriglyceridemia: Continue simvastatin 10 mg daily and fenofibrate 67 mg daily (11) Diabetes: BSGs well controlled on reduced lantus dosing. cont novolog w/ meals. (12) Rhabdomyolysis: mild, 2nd to fall. repeat CPK then normal. (13) CKD (chronic kidney disease): CrCL at baseline high 20s. Thus, stage 4 at baseline. now superimposed BRIANNA - see below. (14) BRIANNA (acute kidney injury): likely obstructive in nature given the urinary retention at admission. peak Cr 2.6, now 2.0 cont fung. Can DC IV fluids repeat BMP am. baseline Cr appears to be about 2. (15) Hypertension: thus far BPs have been high & labile. Now seem more controlled he is on complex regimen including felodipine, imdur, lisinopril, and metoprolol BID. (16) Fecal impaction: on CT as well as on examination Head multiple large bowel movements after receiving fleets enema on 10/02 Continue with bowel regimen (17) DVT prophylaxis: eliquis BID Disposition-continued stay, but will need rehab placement as per PT Admission and Anticipated Discharge Date Admission Date: October 02, 2020 Subjective Patient reports feeling better since admission. Has had multiple falls in the last 2 weeks but does not think that he had a stroke. He denies headache. No chest pain or shortness of breath, no nausea or vomiting, no abdominal pain. He is tolerating p.o. just fine. He is moving his bowels. Telemetry with sinus bradycardia and first-degree AV block, paced rhythm occasionally with rates in the 50s Review of Systems Review of Systems: All systems reviewed & are unremarkable except as noted in HPI & below Physical Exam Constitutional: WD/WN, vitals as above Eyes: PERRL, conjunctivae normal, anicteric sclerae ENMT: external ear and nose normal, oropharynx normal Neck: trachea midline, no thyromegaly Respiratory: normal respiratory effort, lungs clear to auscultation Cardiovascular: RRR, no murmur, no edema Chest (Breasts): Chest: normal inspection of chest Gastrointestinal (Abdomen): normal bowel sounds, soft, nontender, no hepatosplenomegaly Musculoskeletal: Extremities: extremities normal to inspection; no cyanosis and no clubbing Skin: no rashes, warm and dry Neurologic: moves all extremities and awake; no focal motor deficits Psychiatric: A+Ox3, euthymic affect Lymphatic: no lymphedema Results & Data Results & Data ([facility]) Vital Signs (Past 12 Hours) Vital Signs Temp Pulse Pulse Resp BP Pulse Ox 10/03/20 11:55 36.5 C 51 L 18 117/58 L 97 10/03/20 08:00 50 L 10/03/20 07:27 36.5 C 51 L 19 141/68 H 96 10/03/20 03:42 36.6 C 53 L 20 147/80 H 96 Laboratory Results 10/03/20 10/03/20 10/03/20 Range/Units 20:34 16:23 11:13 Sodium (136-145) mmol/L Potassium (3.5-5.1) mmol/L Chloride (98-107) mmol/L Carbon Dioxide (21-32) mmol/L Anion Gap (3-11) BUN (7-18) mg/dl Creatinine (0.6-1.4) mg/dl Est Cr Clr Drug Dosing ml/min Est GFR ( Amer) ml/min Est GFR (Non-Af Amer) ml/min BUN/Creatinine Ratio (10-20) Glucose (70-99) mg/dl POC Glucose 191 H 109 H 127 H (70-99) mg/dl Calcium (8.5-10.1) mg/dl 10/03/20 10/03/20 Range/Units 07:30 06:41 Sodium 140 (136-145) mmol/L Potassium 3.7 (3.5-5.1) mmol/L Chloride 112 H (98-107) mmol/L Carbon Dioxide 23 (21-32) mmol/L Anion Gap 6.0 (3-11) BUN 41 H (7-18) mg/dl Creatinine 2.03 H (0.6-1.4) mg/dl Est Cr Clr Drug Dosing 34.1 ml/min Est GFR ( Amer) 35.8 ml/min Est GFR (Non-Af Amer) 30.9 ml/min BUN/Creatinine Ratio 20.0 (10-20) Glucose 79 (70-99) mg/dl POC Glucose 82 (70-99) mg/dl Calcium 8.4 L (8.5-10.1) mg/dl PG Care Time/CCT Total # of Minutes Spent Total Time Spent with Patient: Total time spent is greater than 50% in coordination of care (as documented) at patient's floor/unit and/or counseling patient: Coding Level of Care Code 81682 Subseq Hosp Care Lvl 3 Diagnoses Recurrent falls R29.6 B12 deficiency E53.8 Generalized weakness R53.1 Pacemaker Z95.0 Acute urinary retention R33.8 BPH with obstruction/lower urinary tract symptoms N40.1; N13.8 Elevated troponin R77.8 Hypertrophic obstructive cardiomyopathy (HOCM) I42.1 Deep vein thrombosis (DVT) of left lower extremity I82.402 Hypertriglyceridemia E78.1 Diabetes E11.9 Rhabdomyolysis M62.82 CKD (chronic kidney disease) N18.4 Chronic kidney disease stage: stage 4 (severe) BRIANNA (acute kidney injury) N17.9 Hypertension I10 Fecal impaction K56.41 DVT prophylaxis Z29.9 (1) CKD (chronic kidney disease) Chronic kidney disease stage: stage 4 (severe) Qualified Code(s): N18.4 - Chronic kidney disease, stage 4 (severe)
[2020-10-03] MEDS: TAMSULOSIN HCL 0.4 MG CAP PO SCH (19:36)
--- NOTE | 2020-10-03 20:25 | Magnetic Resonance Report ---
MRI OF THE BRAIN WITHOUT IV CONTRAST CLINICAL HISTORY: Ataxia. Stroke like symptoms. COMPARISON STUDY: CT of the brain dated 10/01/2020. TECHNIQUE: MRI of the brain was performed utilizing various T1 and T2-weighted sequences in the axial , sagittal, and coronal planes. IV contrast was not administered for this examination. FINDINGS: Brain parenchyma: There is age-related involutional change noting moderate subcortical and periventri cular microangiopathic disease. There are small chronic infarcts in the high posterior parietal lobes bilaterally. There is no hemorrhage or mass effect. There is no restricted diffusion to suggest acut e ischemia. Jalloh-white matter differentiation is preserved. No extra-axial fluid collection is seen. The cerebellar tonsils are normal in configuration. Ventricles, sulci, and cisterns: Prominent secondary to involutional change. Pituitary and sella: Unremarkable. Intracranial vasculature: Normal flow voids are maintained at the skull base. Orbits: The bony orbits are grossly intact. Orbital contents are normal in appearance noting bilatera l ocular lens implants. Sinuses and mastoids: The paranasal sinuses are clear. There is a left mastoid effusion. Calvarium: Unremarkable. Cervical cord: Partially visualized cervical spinal cord is normal in morphology and signal intensity . IMPRESSION: 1. No acute intracranial abnormality is identified. 2. Senescent change and small chronic infarcts as above. ACT 112: Negative or not required by law. Electronically signed by: Nasim Clark M.D. 10/03/2020 8:24 PM
[2020-10-03] MEDS: cefTRIAXone SODIUM 2,000 MG in DEXTROSE 5% 50 ML IV SCH (21:42)
[2020-10-04 06:17] LABS: Basophils # (auto) 0.01 K/uL (0-0.2); Basophils % (auto) 0.2 %; Eosinophils # (auto) 0.25 K/uL (0-0.5); Hematocrit (blood only) 33.1 % (42-52); Immature Granulocytes # (auto) 0.01 K/uL (0.00-0.02); Immature Granulocytes % (auto) 0.2 %; Lymphocytes # (auto) 1.19 K/uL (1.2-3.4); Lymphocytes % (auto) 19.2 %; Mean Corpuscular Hemoglobin 31.5 pg (25-34); Mean Corpuscular Hgb Conc 33.2 g/dL (32-36); Mean Corpuscular Volume 94.8 fL (80-100); Mean Platelet Volume 10.8 fL (7.4-10.4); Monocytes # (auto) 0.67 K/uL (0.11-0.59); Monocytes % (auto) 10.8 %; Neutrophils # (auto) 4.07 K/uL (1.4-6.5); Neutrophils % (auto) 65.6 %; Platelet Count 157 K/uL (130-400); RDW Coefficient of Variation 14.1 % (11.5-14.5); RDW Standard Deviation 48.5 fL (36.4-46.3); Red Blood Count 3.49 M/uL (4.7-6.1)
--- NOTE | 2020-10-04 06:45 | Electrocardiogram Report ---
Test Reason : Blood Pressure : / mmHG Vent. Rate : 055 BPM Atrial Rate : 055 BPM P-R Int : 248 ms QRS Dur : 150 ms QT Int : 472 ms P-R-T Axes : 006 -24 013 degrees QTc Int : 451 ms Sinus bradycardia with 1st degree A-V block Right bundle branch block Abnormal ECG When compared with ECG of 02-OCT-2020 07:57, Sinus rhythm has replaced Electronic atrial pacemaker Confirmed by Cheko Argueta ([id number]) on 10/04/2020 6:44:43 AM Referred By: REFERRED SELF Confirmed By:Cheko Argueta
[2020-10-04 06:50] LABS: BUN Creatinine Ratio 20.9 (10-20); Calcium 8.2 mg/dl (8.5-10.1); Creatinine Clr Calc Pharmacy 32.1 ml/min; Est GFR (African American) 32.9 ml/min; Est GFR (Non-African American) 28.4 ml/min; Potassium 3.9 mmol/L (3.5-5.1)
[2020-10-04] MEDS: lisinopril 40 MG TAB PO SCH (08:01)
[2020-10-04] MEDS: APIXABAN 5 MG TABLET PO SCH ×2 (08:01→20:37)
[2020-10-04] MEDS: CHOLECALCIFEROL 1,000 UNITS 25 MCG TAB PO SCH (08:01)
[2020-10-04] MEDS: FENOFIBRATE NANOCRYSTALLIZED 48 MG TABLET PO SCH (08:02)
[2020-10-04] MEDS: ISOSORBIDE MONO EXTENDED REL 30 MG TABCR PO SCH (08:02)
[2020-10-04] MEDS: CYANOCOBALAMIN 1000 MCG/ML VIAL IM SCH (08:02)
[2020-10-04] MEDS: FINASTERIDE 5 MG TAB PO SCH (08:02)
[2020-10-04] MEDS: SIMVASTATIN 10 MG TAB PO SCH (08:02)
[2020-10-04] MEDS: FELODIPINE 5 MG TABCR PO SCH (08:02)
[2020-10-04] MEDS: INSULIN ASPART 100 UNITS/ML 3 ML PEN SC SCH ×4 (08:03→20:40)
[2020-10-04] MEDS: METOPROLOL TARTRATE 100 MG TAB PO SCH ×2 (08:03→20:38)
[2020-10-04] MEDS: DOCUSATE SODIUM 100 MG CAP PO SCH ×2 (09:04→20:37)
[2020-10-04] MEDS: INSULIN GLARGINE SOLOSTAR 100 UNITS/ML 3 ML PEN SC SCH (09:11)
--- NOTE | 2020-10-04 17:17 | Hospitalist Progress Note ---
Date of Service October 04, 2020 Assessment & Plan (1) Recurrent falls: multiple falls over the last few weeks. his brother also mentioned that his memory had been off during this time period. CT head w/o acute findings. he appeared to have cerebellar signs on exam- localizing to left cerebellum. 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 - d/c Rocephin now as cultures are negative and no infection found replace low b12. PT, OT evals recommend rehab (2) B12 deficiency: start parenteral replacement while here then oral replacement at discharge (3) Generalized weakness: u/a was not particularly suspicious for UTI Blood cultures neg x 48 hours FARZAD w/o prostatitis. COVID neg. he has cerebellar signs on exam - mild ataxia with F-N-F maneuver; leaning to left in bed. 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 CT head at admission noted. b12 level given his ambulatory dysfunction and ataxia -- in the mid 200s. Likely deficient. start IM shots while here. -needs rehab placement (4) Pacemaker: pacer interrogation to r/o dysrhythmia as the cause of his falls. pacer was placed for high-degree AV block . no issues on tele transfer off tele (5) Acute urinary retention: 2nd BPH. u/a not suspicious for UTI. FARZAD not suspicious for prostatitis. fecal impaction can make this issue worse as well. added finasteride to his flomax. bowel regimen successful Maintain fung catheter and have him follow-up with urology in 1 to 2 weeks as an outpatient -Discontinued solifenacin (6) BPH with obstruction/lower urinary tract symptoms: fecal impaction will make voiding worse. however, he has BPH at baseline likely being the main culprit. already on flomax at home. added finasteride. no evidence of prostatitis on examination. with his event gait disturbance, falls, memory difficulties, and voiding issues -- NPH?? obtaining MRI which was neg for acute CVA or evidenc eof NPH (7) Elevated troponin: Likely myocardial demand ischemia in the setting of BRIANNA, falls, etc. (8) Hypertrophic obstructive cardiomyopathy (HOCM): 05/2020 echo showed resolution of prior findings to suggest this diagnosis (9) Deep vein thrombosis (DVT) of left lower extremity: Recently diagnosed in 04/2020 Continue apixaban for at least 6 months and then PCP plans to reduce to preventive dose as this was his second DVT (10) Hypertriglyceridemia: Continue simvastatin 10 mg daily and fenofibrate 67 mg daily (11) Diabetes: BSGs well controlled on reduced lantus dosing. cont novolog w/ meals. (12) Rhabdomyolysis: mild, 2nd to fall. repeat CPK then normal. (13) CKD (chronic kidney disease): CrCL at baseline high 20s. Thus, stage 4 at baseline. with superimposed BRIANNA -now resolved (14) BRIANNA (acute kidney injury): likely obstructive in nature given the urinary retention at admission. peak Cr 2.6, now 2.0 cont fung. have since dcd IVFs baseline Cr appears to be about 2. (15) Hypertension: thus far BPs have been high & labile. Now seem more controlled he is on complex regimen including felodipine, imdur, lisinopril, and metoprolol BID. (16) Fecal impaction: on CT as well as on examination Head multiple large bowel movements after receiving fleets enema on 10/02 Continue with bowel regimen (17) History of CVA (cerebrovascular accident): with brain MRI with small chronic infarcts in the high posterior parietal lobes bilaterally, not clinically significant, incidental could start ASA but is currently on Eliquis no Afib is on statin-change to atorvastatin high intensity and add ASA once ELiquis dose reduced in near future (18) DVT prophylaxis: eliquis BID Disposition-continued stay, but will need rehab placement as per PT, downgrade to med/surg [employer] invlved, awaiting insurance to open on Monday to apply for rehab auth Admission and Anticipated Discharge Date Admission Date: October 02, 2020 Subjective Feeling well, happy his leg swelling is improved since being here. Is eating and drinking, moving bowels. No CP or SOB. Is agreeable to rehab Reviewed MRI brain results from yesterday Tele with NSR, paced rhythm, SB, 1st degree AVB Review of Systems Review of Systems: All systems reviewed & are unremarkable except as noted in HPI & below Physical Exam Constitutional: WD/WN, vitals as above Eyes: + anicteric sclerae Neck: trachea midline, no thyromegaly Respiratory: normal respiratory effort, lungs clear to auscultation Cardiovascular: Rate/Rhythm: regular rate and regular rhythm Heart Sounds: no murmur Extremities: + edema (trace edema left leg) Chest (Breasts): Chest: normal inspection of chest Gastrointestinal (Abdomen): normal bowel sounds, soft, nontender, no hepatosplenomegaly Musculoskeletal: Extremities: extremities normal to inspection; no cyanosis and no clubbing Skin: no rashes, warm and dry Neurologic: moves all extremities and awake; no focal motor deficits Psychiatric: A+Ox3, euthymic affect Lymphatic: no lymphedema Results & Data Results & Data ([facility]) Vital Signs (Past 12 Hours) Vital Signs Temp Pulse Pulse Resp BP Pulse Ox 10/04/20 15:44 36.5 C 74 18 141/57 H 98 10/04/20 11:57 37.0 C 59 L 19 144/56 H 97 10/04/20 08:05 55 L 10/04/20 07:29 36.6 C 53 L 18 148/75 H 96 Laboratory Results 10/04/20 10/04/20 10/04/20 Range/Units 16:17 11:34 07:29 WBC (4.8-10.8) K/uL RBC (4.7-6.1) M/uL Hgb (14.0-18.0) g/dL Hct (42-52) % MCV (80-100) fL MCH (25-34) pg MCHC (32-36) g/dL RDW Std Deviation (36.4-46.3) fL RDW Coeff of Nona (11.5-14.5) % Plt Count (130-400) K/uL MPV (7.4-10.4) fL Immature Gran % (Auto) % Neut % (Auto) % Lymph % (Auto) % [place] % (Auto) % Eos % (Auto) % Baso % (Auto) % Neut # (Auto) (1.4-6.5) K/uL Lymph # (Auto) (1.2-3.4) K/uL [place] # (Auto) (0.11-0.59) K/uL Eos # (Auto) (0-0.5) K/uL Baso # (Auto) (0-0.2) K/uL Immature Gran # (Auto) (0.00-0.02) K/uL Sodium (136-145) mmol/L Potassium (3.5-5.1) mmol/L Chloride (98-107) mmol/L Carbon Dioxide (21-32) mmol/L Anion Gap (3-11) BUN (7-18) mg/dl Creatinine (0.6-1.4) mg/dl Est Cr Clr Drug Dosing ml/min Est GFR ( Amer) ml/min Est GFR (Non-Af Amer) ml/min BUN/Creatinine Ratio (10-20) Glucose (70-99) mg/dl POC Glucose 164 H 127 H 88 (70-99) mg/dl Calcium (8.5-10.1) mg/dl 10/04/20 10/04/20 10/03/20 Range/Units 05:50 05:50 20:34 WBC 6.20 (4.8-10.8) K/uL RBC 3.49 L (4.7-6.1) M/uL Hgb 11.0 L (14.0-18.0) g/dL Hct 33.1 L (42-52) % MCV 94.8 (80-100) fL MCH 31.5 (25-34) pg MCHC 33.2 (32-36) g/dL RDW Std Deviation 48.5 H (36.4-46.3) fL RDW Coeff of Nona 14.1 (11.5-14.5) % Plt Count 157 (130-400) K/uL MPV 10.8 H (7.4-10.4) fL Immature Gran % (Auto) 0.2 % Neut % (Auto) 65.6 % Lymph % (Auto) 19.2 % [place] % (Auto) 10.8 % Eos % (Auto) 4.0 % Baso % (Auto) 0.2 % Neut # (Auto) 4.07 (1.4-6.5) K/uL Lymph # (Auto) 1.19 L (1.2-3.4) K/uL [place] # (Auto) 0.67 H (0.11-0.59) K/uL Eos # (Auto) 0.25 (0-0.5) K/uL Baso # (Auto) 0.01 (0-0.2) K/uL Immature Gran # (Auto) 0.01 (0.00-0.02) K/uL Sodium 141 (136-145) mmol/L Potassium 3.9 (3.5-5.1) mmol/L Chloride 112 H (98-107) mmol/L Carbon Dioxide 25 (21-32) mmol/L Anion Gap 4.0 (3-11) BUN 45 H (7-18) mg/dl Creatinine 2.18 H (0.6-1.4) mg/dl Est Cr Clr Drug Dosing 32.1 ml/min Est GFR ( Amer) 32.9 ml/min Est GFR (Non-Af Amer) 28.4 ml/min BUN/Creatinine Ratio 20.9 H (10-20) Glucose 101 H (70-99) mg/dl POC Glucose 191 H (70-99) mg/dl Calcium 8.2 L (8.5-10.1) mg/dl PG Care Time/CCT Total # of Minutes Spent Total Time Spent with Patient: Total time spent is greater than 50% in coordination of care (as documented) at patient's floor/unit and/or counseling patient: Coding Level of Care Code 96831 Subseq Hosp Care Lvl 2 Diagnoses Recurrent falls R29.6 B12 deficiency E53.8 Generalized weakness R53.1 Pacemaker Z95.0 Acute urinary retention R33.8 BPH with obstruction/lower urinary tract symptoms N40.1; N13.8 Elevated troponin R77.8 Hypertrophic obstructive cardiomyopathy (HOCM) I42.1 Deep vein thrombosis (DVT) of left lower extremity I82.402 Hypertriglyceridemia E78.1 Diabetes E11.9 Rhabdomyolysis M62.82 CKD (chronic kidney disease) N18.4 Chronic kidney disease stage: stage 4 (severe) BRIANNA (acute kidney injury) N17.9 Hypertension I10 Fecal impaction K56.41 History of CVA (cerebrovascular accident) Z86.73 DVT prophylaxis Z29.9 (1) CKD (chronic kidney disease) Chronic kidney disease stage: stage 4 (severe) Qualified Code(s): N18.4 - Chronic kidney disease, stage 4 (severe)
[2020-10-04] MEDS: TAMSULOSIN HCL 0.4 MG CAP PO SCH (20:38)
[2020-10-05] MEDS: lisinopril 40 MG TAB PO SCH (08:35)
[2020-10-05] MEDS: FELODIPINE 5 MG TABCR PO SCH (08:35)
[2020-10-05] MEDS: ATORVASTATIN 40 MG TAB PO SCH (08:35)
[2020-10-05] MEDS: FENOFIBRATE NANOCRYSTALLIZED 48 MG TABLET PO SCH (08:35)
[2020-10-05] MEDS: CHOLECALCIFEROL 1,000 UNITS 25 MCG TAB PO SCH (08:36)
[2020-10-05] MEDS: FINASTERIDE 5 MG TAB PO SCH (08:36)
[2020-10-05] MEDS: ISOSORBIDE MONO EXTENDED REL 30 MG TABCR PO SCH (08:36)
[2020-10-05] MEDS: DOCUSATE SODIUM 100 MG CAP PO SCH ×2 (08:37→20:27)
[2020-10-05] MEDS: APIXABAN 5 MG TABLET PO SCH ×2 (08:37→20:27)
[2020-10-05] MEDS: CYANOCOBALAMIN 1000 MCG/ML VIAL IM SCH (08:37)
[2020-10-05] MEDS: INSULIN GLARGINE SOLOSTAR 100 UNITS/ML 3 ML PEN SC SCH (08:39)
[2020-10-05] MEDS: METOPROLOL TARTRATE 100 MG TAB PO SCH ×2 (08:39→20:28)
[2020-10-05] MEDS: INSULIN ASPART 100 UNITS/ML 3 ML PEN SC SCH ×4 (08:40→20:31)
--- NOTE | 2020-10-05 16:06 | Cardiology Consultation ---
Date of Consultation October 05, 2020 Assessment & Plan (1) Elevated troponin: (2) Left ventricular outflow tract obstruction: (3) Hypertension: (4) Recurrent falls: (5) Hypertrophic obstructive cardiomyopathy (HOCM): (6) Status post placement of cardiac pacemaker: (7) Sinus node dysfunction: ASSESSMENT/PLAN: 1. Elevated troponin: Etiology uncertain. He did not present with acute coronary syndrome and has not had any anginal symptoms. He may have underlying CAD given his risk factors including diabetes. It does not appear that cardiac etiology is responsible for his mechanical falls. Risk factor modification. Elevated troponins could also be due to strain as he has had LVOT obstruction in the past with chordal EDWIN and asymmetric hypertrophy of the anteroseptum. Repeat echo. 2. LVOT obstruction/HCM: Asymmetric LV hypertrophy and chordal Edwin while LV was hyperdynamic. Most recent echo in May of 2020 did not demonstrate obstruction. Repeat echo. 3. Hypertension: Was significantly hypertensive earlier this hospital stay, which could also lead to minimal troponin elevation, especially with other factors as noted above. Continue home medications for now. Adjust medications as appropriate. 4. Recurrent falls: Based on his description and also the description provided by his brother, falls appear to be mechanical. As per primary service. 5. Sinus node dysfunction s/p dual chamber pacemaker: Followed by Dr. Prieto. He was notified of patient's admission as he was scheduled to be seen in the office today for pacemaker interrogation. 6. Disposition: Please call with any other questions or concerns. Patient care communicated with Milagros Hui of the primary hospitalist service. Thank you for allowing me to participate in the care of your patient. Please call for any other questions or concerns. Sincerely, Guerrero Argueta M.D. History of Present Illness Reason for Consultation: Elevated troponin Requesting Physician: Milagros Hui Attending Physician: Adonay Muñoz DO History of Present Illness Mr. Larkin is a pleasant 75-year-old gentleman with a history significant for sinus node dysfunction s/p dual chamber pacemaker, asymmetric left ventricular hypertrophy with history of LVOT obstruction, CKD, insulin-dependent diabetes, DVT on anticoagulation therapy, anemia, diabetic retinopathy, hypertriglyceridemia, and spinal stenosis. He also has reported memory impairment. His primary steffen house supervisor is Dr. Prieto. Cardiac history notable for LVOT obstruction noted on 09/08/2015 echo. He was noted to have asymmetric hypertrophy of the anteroseptum with what appeared to be chordal systolic anterior motion with LVOT obstruction with peak velocity of 2.9 m/sec and peak gradient of 33 mmHg. LV systolic function at that time was hyperdynamic. Repeat imaging did not demonstrate LVOT obstruction on 05/12/2020, and LV systolic function was no longer hyperdynamic. He underwent pacemaker implantation on 06/23/2016 for sinus node dysfunction. Syncope had prompted investigation with a loop recorder. He was admitted on 10/02/2020 after presenting to the emergency department feeling weak and falling twice the day prior to presentation. Both falls were mechanical based on patient report. He states that he lost his balance and never lost consciousness. He also fell approximately 2 weeks prior to that while trying to put on a pair of pants. He has not had any syncope since pacemaker implantation. He has become more unsteady on his feet and had been using a cane for ambulation but more recently over the past 2 weeks, he has been using a walker. He denies chest pain, shortness of breath, syncope, near-syncope, palpitations, or bleeding. He typically has lower extremity edema, more pronounced on the left. He had DVT in his left lower extremity. He admits that after his last fall, he was unable to pick himself up off the ground. During this hospitalization, troponin was slightly elevated on presentation at 0.083 and trended upward to a peak of 0.198. Brain MRI demonstrated small chronic infarcts but no acute intracranial abnormality. Review of systems: As above. Review of systems otherwise negative/unremarkable. Family history: Mother and father both had CAD and diabetes. Social history: He denies tobacco, alcohol, or drug abuse. He is a since November of 2019. No children. He lives alone. His brother, Miguel, accompanies him today. 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 Allergies Allergy/AdvReac Type Severity Reaction Status Date / Time No Known Allergies Allergy ` Verified 10/01/20 21:38 Home Medications Medication Instructions Recorded Confirmed Type cholecalciferol (vitamin D3) 25 1,000 units PO DAILY #90 cap 09/09/19 10/01/20 Rx mcg (1,000 unit) capsule fenofibrate micronized 67 mg 67 mg PO DAILY #90 cap 12/05/19 10/01/20 Rx capsule felodipine 10 mg tablet,extended 10 mg PO DAILY #90 tab 02/04/20 10/01/20 Rx release 24 hr isosorbide mononitrate 30 mg 30 mg PO DAILY #90 tab 02/07/20 10/01/20 Rx tablet,extended release 24 hr lisinopril 40 mg tablet 40 mg PO DAILY #90 tab 02/10/20 10/01/20 Rx metoprolol tartrate 100 mg tablet 100 mg PO BID #180 tab 05/11/20 10/01/20 Rx blood sugar diagnostic #100 ea 06/29/20 09/14/20 Rx apixaban 5 mg tablet 5 mg PO BID #60 tab 07/13/20 10/01/20 Rx insulin glargine U-300 conc 300 30 unit SUBCUT DAILY ml 07/13/20 10/01/20 History unit/mL (1.5 mL) subcutaneous pen simvastatin 10 mg tablet 10 mg PO DAILY #90 tab 08/18/20 10/01/20 Rx solifenacin 10 mg tablet 10 mg PO DAILY #30 tab 08/19/20 10/01/20 Rx allopurinol 300 mg PO UD 10/01/20 10/01/20 History Patient History Medical History (Updated 10/05/20 @ 16:04 by Cheko Argueta MD) Anemia of chronic disease BPH with obstruction/lower urinary tract symptoms CKD (chronic kidney disease) Deep vein thrombosis (DVT) of left lower extremity Diabetes History of CVA (cerebrovascular accident) Hypertension Hypertriglyceridemia Hypertrophic obstructive cardiomyopathy (HOCM) Low back pain Mobitz (type) II atrioventricular block Proteinuria Sinus node dysfunction Skin carcinoma Spinal stenosis Subclavian vein thromboembolism, acute Syncope and collapse Surgical History (Updated 10/05/20 @ 16:04 by Cheko Argueta MD) H/O arthroscopy of knee History of cataract surgery Status post placement of cardiac pacemaker Family History Mother Ovarian cancer Diabetes Father Diabetes Unknown Coronary heart disease Denies family history of Prostate cancer Myocardial infarction Breast cancer Colorectal cancer Social History Smoking Status: Never smoker Second Hand Exposure: No; Hx Alcohol Use: No Hx Substance Use: No Preferred Language: Haitian Communication Ability: Effective Welder Tack Required: No Beliefs That Will Affect Care: None marital status: / Current Living Situation: Alone current occupational status: retired Feels Safe at Home: Yes Childhood Exposure to Second-Hand Smoke: No caffeine: Yes Dental Care, Regularly: Yes Physical Activity Frequency: 1-2 Times per Week Seatbelt Use: always Sunscreen Use: No Assistive Devices: Walker Physical Exam Physical Exam: Gen.: No acute distress. Alert. HEENT: Anicteric sclera. Neck: No JVD. No bruits. Normal carotid upstrokes bilaterally. Cardiac: PMI was nondisplaced. No ventricular heave. Regular. Distant S1-S2. No audible murmurs, rubs, or gallops. Pulmonary: Clear to auscultation bilaterally without wheezes, rales, or rhonchi. Abdomen: Soft, nontender, nondistended, with normoactive bowel sounds. No bruits noted. Extremities: 2+ radial pulses bilaterally. 2+ posterior tibialis pulses bilaterally. Trace bilateral lower extremity edema L > R. No cyanosis. Psychiatric: Affect appears appropriate. Results & Data ([facility]) Vital Signs (Past 12 Hours) Vital Signs Temp Pulse Resp BP Pulse Ox 10/05/20 05:34 36.6 C 53 L 16 162/70 H 97 Laboratory Results Laboratory Results - last 24 hr 10/04/20 10/05/20 10/05/20 20:36 07:55 12:04 POC Glucose 147 H 97 116 H Diagnostic Findings Echo images from prior studies were reviewed as noted above in HPI. ECGs personally reviewed: ECG 10/01/2020: Intermittent atrial pacing. Otherwise, sinus rhythm with first-degree AV block. RBBB. ECG 10/03/2020 at 5:11 a.m.: Sinus bradycardia with first-degree AV block. RBBB. ECG 10/02/2020 at 7:57 a.m.: Atrial paced. RBBB. Brain MRI report reviewed as noted above in HPI. Chart reviewed. Medications Administered Current Inpatient Medications Acetaminophen (Acetaminophen 325 Mg Tab) 650 mg PO Q4H PRN PRN Reason: Pain or Fever Stop: 11/01/20 02:23 Allopurinol (Allopurinol 300 Mg Tab) 300 mg PO UD NAA Stop: 11/01/20 02:23 Apixaban (Apixaban 5 Mg Tablet) 5 mg PO BID [facility] Stop: 11/01/20 02:23 Last Admin: 10/05/20 08:37 Dose: 5 mg Documented by: Aspirin (Aspirin 81 Mg Ectab) 81 mg PO QAM [facility] Stop: 11/05/20 08:59 Atorvastatin Calcium (Atorvastatin 40 Mg Tab) 40 mg PO QAM [facility] Stop: 11/04/20 08:59 Last Admin: 10/05/20 08:35 Dose: 40 mg Documented by: Cyanocobalamin (Cyanocobalamin 1000 Mcg/Ml Vial) 1,000 mcg IM QAM [facility] Stop: 10/07/20 09:01 Last Admin: 10/05/20 08:37 Dose: 1,000 mcg Documented by: Dextrose (Dextrose 50% 50 Ml Syringe) 25 - 50 ml IV UD PRN; Protocol PRN Reason: Hypoglycemia Protocol Stop: 11/01/20 02:23 Docusate Sodium (Docusate Sodium 100 Mg Cap) 100 mg PO BID [facility] Stop: 11/03/20 08:59 Last Admin: 10/05/20 08:37 Dose: 100 mg Documented by: Felodipine (Felodipine 5 Mg Tabcr) 10 mg PO DAILY [facility] Stop: 11/01/20 08:59 Last Admin: 10/05/20 08:35 Dose: 10 mg Documented by: Fenofibrate (Fenofibrate Nanocrystallized 48 Mg Tablet) 48 mg PO DAILY [facility] Stop: 11/01/20 08:59 Last Admin: 10/05/20 08:35 Dose: 48 mg Documented by: Finasteride (Finasteride 5 Mg Tab) 5 mg PO QAM [facility] Stop: 11/01/20 14:29 Last Admin: 10/05/20 08:36 Dose: 5 mg Documented by: Gabapentin (Gabapentin 100 Mg Cap) 100 mg PO BID [facility] Stop: 11/04/20 20:59 Glucagon (Glucagon For Inj 1 Mg Vial) 1 mg SQ UD PRN; Protocol PRN Reason: Hypoglycemia Protocol Stop: 11/01/20 02:23 Glucose (Glucose 10 Tabs/Tube) 4 - 8 tabs PO UD PRN; Protocol PRN Reason: Hypoglycemia Protocol Stop: 11/01/20 02:23 Glucose (Glucose 40% Gel 15 Gm Tube) 15 - 30 gm PO UD PRN; Protocol PRN Reason: Hypoglycemia Protocol Stop: 11/01/20 02:23 Insulin Aspart (Insulin Aspart 100 Units/Ml 3 Ml Pen) 0 units SC ACHS NAA Stop: 11/01/20 07:29 Last Admin: 10/05/20 12:38 Dose: 4 units Documented by: Insulin Glargine (Insulin Glargine Solostar 100 Units/Ml 3 Ml Pen) 15 units SC DAILY NAA Stop: 11/02/20 08:59 Last Admin: 10/05/20 08:39 Dose: 15 units Documented by: Isosorbide Mononitrate (Isosorbide [place] Extended Rel 30 Mg Tabcr) 30 mg PO DAILY NAA Stop: 11/01/20 08:59 Last Admin: 10/05/20 08:36 Dose: 30 mg Documented by: Lisinopril (Lisinopril 40 Mg Tab) 40 mg PO DAILY NAA Stop: 11/01/20 08:59 Last Admin: 10/05/20 08:35 Dose: 40 mg Documented by: Metoprolol Tartrate (Metoprolol Tartrate 100 Mg Tab) 100 mg PO BID NAA Stop: 11/01/20 08:59 Last Admin: 10/05/20 08:39 Dose: Not Given Documented by: Miscellaneous (Carbohydrates For Hypoglycemia ) 15 - 30 gm PO UD PRN PRN Reason: Hypoglycemia Protocol Stop: 11/01/20 02:23 Ondansetron HCl (Ondansetron Inj 2 Mg/Ml 2 Ml Vial) 4 mg IV Q6H PRN PRN Reason: Nausea Stop: 11/01/20 02:23 Tamsulosin HCl (Tamsulosin Hcl 0.4 Mg Cap) 0.4 mg PO BID [facility] Stop: 11/04/20 20:59 Vitamin D (Cholecalciferol 1,000 Units 25 Mcg Tab) 1,000 units PO DAILY NAA Stop: 11/01/20 08:59 Last Admin: 10/05/20 08:36 Dose: 1,000 units Documented by: PG Care Time/CCT Total # of Minutes Spent Total Time Spent with Patient: Total time spent is greater than 50% in coordination of care (as documented) at patient's floor/unit and/or counseling patient: Coding Level of Care Code 30951 Initial Inpt Care Lvl 3 Diagnoses Elevated troponin R77.8 Left ventricular outflow tract obstruction Q24.8 Hypertension I10 Recurrent falls R29.6 Hypertrophic obstructive cardiomyopathy (HOCM) I42.1 Status post placement of cardiac pacemaker Z95.0 Sinus node dysfunction I49.5
--- NOTE | 2020-10-05 17:07 | Hospitalist Progress Note ---
Date of Service October 05, 2020 Assessment & Plan (1) Generalized weakness: u/a was not particularly suspicious for UTI Blood cultures neg x 48 hours FARZAD w/o prostatitis. COVID neg. MRI -negative for acute stroke CT head at admission noted. b12 level given his ambulatory dysfunction and ataxia -- in the mid 200s. Likely deficient. Started on IM cyanocobalamin with plan for discharge on oral supplementation Based on my exam and his underlying history of diabetes mellitus, I do believe that he has some neuropathy contributing to the weakness in his lower extremities. He is not having significant pain but is unable to differentiate between sharp and dull. Neuropathy can very well be causing gait disturbances and frequent falls. I have started him on Neurontin. PT/OT on boardappreciate recommendations. May need placement for short-term rehab versus home with home services. (2) Recurrent falls: multiple falls over the last few weeks. -See above (3) B12 deficiency: start parenteral replacement while here then oral replacement at discharge (4) Pacemaker: -PPM interrogated during this hospitalization without obvious evidence of dysrhythmia. Patient was on telemetry and remained hemodynamically stable. He has since been transitioned off of telemetry (5) Acute urinary retention: -Likely secondary to BPH. Proscar now on board with Flomax. In addition, will increase Flomax to twice daily -Plan to remove King catheter with post void bladder scan. Suspect patient has chronic retention -Retention likely contributing to constipation that has since been treated and resolved (6) BPH with obstruction/lower urinary tract symptoms: -Now on Flomax twice daily and Proscar (7) Elevated troponin: -Given his chronic underlying comorbidities, I am wondering if he may have had a mild NSTEMI with an atypical presentation. He does have HOCM which could be contributing to the elevated cardiac biomarkers. I have reached out to cardiology and have asked them to see this patient in consultation. Patient is already on a beta-blockade and statin therapy. We will add aspirin at this point. I appreciate any further recommendations (8) Hypertrophic obstructive cardiomyopathy (HOCM): 05/2020 echo showed resolution of prior findings to suggest this diagnosis (9) Deep vein thrombosis (DVT) of left lower extremity: Recently diagnosed in 04/2020 Continue apixaban for at least 6 months and then PCP plans to reduce to preve ntive dose as this was his second DVT (10) Hypertriglyceridemia: Continue simvastatin 10 mg daily and fenofibrate 67 mg daily (11) Diabetes: BSGs well controlled on reduced lantus dosing. cont novolog w/ meals. (12) CKD (chronic kidney disease): - Currently at baseline (13) BRIANNA (acute kidney injury): -Acute component was likely secondary to urinary retention. Creatinine back to baseline (14) Hypertension: thus far BPs have been high & labile. Now seem more controlled he is on complex regimen including felodipine, imdur, lisinopril, and metoprolol BID. (15) Fecal impaction: -Resolved with fleets enema. Continue bowel regimen (16) History of CVA (cerebrovascular accident): -with brain MRI with small chronic infarcts in the high posterior parietal lobes bilaterally, not clinically significant, incidental -Will initiate aspirin for cardiac protection and decrease risk of further CVA events -no Afib -is on statin-change to atorvastatin high intensity and add ASA (17) DVT prophylaxis: eliquis BID Disposition-continued stay,? Placement to SNF versus home with PT/OT. Awaiting PT/OT evaluationappreciate recommendations Case management on board Plan of care to be discussed with Dr. Muñoz. Further orders as warranted. Admission and Anticipated Discharge Date Admission Date: October 04, 2020 Subjective Patient seen on daily rounds today. He is a 75-year-old white male with a past medical history of CKD, DVT in the left leg (04/23)on Eliquis, anxiety/depression, BPH, insulin-dependent diabetes mellitus, and hypertrophic cardiomyopathy. He does have a pacemaker and follows Dr. Prieto for routine cardiac care. He was hospitalized on 10/02 due to generalized weakness of the lower extremities and frequent falls. There has not been a clear etiology regarding his frequent falls. He had a CT of his head and an MRI that showed no evidence of acute pathology. There was suggestion that he had rhabdomyolysis; however, his CK was not substantially elevated (was only 444). His CK, MB, and troponin were all slightly elevated (troponin peaked at 0.198) without EKG changes or evidence of chest pain. His urinalysis was not grossly infected. He did have urinary retention but has BPH and this was likely baseline for him. TSH was normal at 1.03. B12 low level of normal and subsequently he has been started on cyanocobalamin injections. Again, no obvious source of his frequent falls and generalized weakness has been found. He is a diabetic but has never been diagnosed with diabetic neuropathy. Denies paresthesias/pain/burning of the lower extremities. Simply admits to "weakness in his legs". Regarding the elevated cardiac biomarkers, these are only mildly elevated. He did not have any signs or symptoms consistent with acute cardiac diseasedenied chest pain, arm pain, jaw pain, shortness of breath, pleurisy, dyspnea on exertion, diaphoresis, nausea. Echocardiogram done 05/24 showing EF of 50 to 55% with concentric LV hypertrophy, grade 1 diastolic dysfunction, mild aortic stenosis with previously noted left ventricular outflow tract obstruction with evidence of hypertrophic cardiomyopathy no longer apparent. Review of Systems Review of Systems: Complains of weakness of his lower extremities but otherwise, denies fevers, chills, headache, nasal congestion, sore throat, cough, chest pain, shortness of breath, abdominal pain, nausea, vomiting, GI/ symptomatology. Physical Exam Physical Exam: General: Resting comfortably in his bedside chair. A&O X3 NAD. Cardiac: RRR with 2/6 MANOLO Lungs: CTA without W/R/R Abdomen: Normoactive X4. Soft and nontender in all quadrants. Extremities: No peripheral clubbing cyanosis or edema. Patient unable to differentiate sharp versus dull Results & Data Results & Data ([facility]) Vital Signs (Past 12 Hours) Vital Signs Temp Pulse Resp BP Pulse Ox 10/05/20 05:34 36.6 C 53 L 16 162/70 H 97 Laboratory Results 10/04/20 05:50 10/04/20 05:50 PG Care Time/CCT Total # of Minutes Spent Total Time Spent with Patient: Total time spent is greater than 50% in coordination of care (as documented) at patient's floor/unit and/or counseling patient: [place] [address] Subseq Hosp Care Lvl 3 Patient Type Established History Detailed Exam Detailed Medical Decision Making Moderate Complexity Diagnoses Generalized weakness R53.1 Recurrent falls R29.6 B12 deficiency E53.8 Pacemaker Z95.0 Acute urinary retention R33.8 BPH with obstruction/lower urinary tract symptoms N40.1; N13.8 Elevated troponin R77.8 Hypertrophic obstructive cardiomyopathy (HOCM) I42.1 Deep vein thrombosis (DVT) of left lower extremity I82.402 Hypertriglyceridemia E78.1 Diabetes E11.9 CKD (chronic kidney disease) N18.4 Chronic kidney disease stage: stage 4 (severe) BRIANNA (acute kidney injury) N17.9 Hypertension I10 Fecal impaction K56.41 History of CVA (cerebrovascular accident) Z86.73 DVT prophylaxis Z29.9 (1) CKD (chronic kidney disease) Chronic kidney disease stage: stage 4 (severe) Qualified Code(s): N18.4 - Chronic kidney disease, stage 4 (severe)
[2020-10-05] MEDS: ACETAMINOPHEN 325 MG TAB PO PRN (19:21)
[2020-10-05] MEDS: TAMSULOSIN HCL 0.4 MG CAP PO SCH (20:28)
[2020-10-05] MEDS: GABAPENTIN 100 MG CAP PO SCH (20:28)
[2020-10-06] MEDS: INSULIN ASPART 100 UNITS/ML 3 ML PEN SC SCH ×4 (09:38→20:45)
[2020-10-06] MEDS: ASPIRIN 81 MG ECTAB PO SCH (09:46)
[2020-10-06] MEDS: CYANOCOBALAMIN 1000 MCG/ML VIAL IM SCH (09:46)
[2020-10-06] MEDS: ATORVASTATIN 40 MG TAB PO SCH (09:46)
[2020-10-06] MEDS: APIXABAN 5 MG TABLET PO SCH ×2 (09:46→20:03)
[2020-10-06] MEDS: CHOLECALCIFEROL 1,000 UNITS 25 MCG TAB PO SCH (09:46)
[2020-10-06] MEDS: hydrALAZINE 10 MG TAB PO SCH ×2 (09:47→20:03)
[2020-10-06] MEDS: FINASTERIDE 5 MG TAB PO SCH (09:47)
[2020-10-06] MEDS: GABAPENTIN 100 MG CAP PO SCH ×2 (09:47→20:03)
[2020-10-06] MEDS: FELODIPINE 5 MG TABCR PO SCH (09:47)
[2020-10-06] MEDS: ISOSORBIDE MONO EXTENDED REL 30 MG TABCR PO SCH (09:48)
[2020-10-06] MEDS: lisinopril 40 MG TAB PO SCH (09:49)
[2020-10-06] MEDS: METOPROLOL TARTRATE 100 MG TAB PO SCH ×2 (09:49→20:03)
[2020-10-06] MEDS: TAMSULOSIN HCL 0.4 MG CAP PO SCH ×2 (09:50→20:03)
[2020-10-06] MEDS: INSULIN GLARGINE SOLOSTAR 100 UNITS/ML 3 ML PEN SC SCH (09:50)
[2020-10-06] MEDS: DOCUSATE SODIUM 100 MG CAP PO SCH ×2 (09:55→20:03)
[2020-10-06] MEDS: FENOFIBRATE NANOCRYSTALLIZED 48 MG TABLET PO SCH (10:45)
[2020-10-06] MEDS ORDERED: POLYETHYLENE (MIRALAX) 17 GM PACK PO PRN (12:47)
--- NOTE | 2020-10-06 13:13 | XCELERA ---
[id number]
--- NOTE | 2020-10-06 15:55 | Hospitalist Progress Note ---
Date of Service October 06, 2020 Assessment & Plan (1) Accelerated hypertension: * Patient currently prescribed and taking felodipine, Imdur, lisinopril, and metoprololstill with accelerated BP * Will add hydralazine and continue monitoring * clonidine on board as needed (2) Generalized weakness: u/a was not particularly suspicious for UTI Blood cultures neg x 48 hours FARZAD w/o prostatitis. COVID neg. MRI -negative for acute stroke CT head at admission noted. b12 level given his ambulatory dysfunction and ataxia -- in the mid 200s. Likely deficient. Started on IM cyanocobalamin with plan for discharge on oral supplementation Based on my exam and his underlying history of diabetes mellitus, I do believe that he has some neuropathy contributing to the weakness in his lower extremities. He is not having significant pain but is unable to differentiate between sharp and dull. Neuropathy can very well be causing gait disturbances and frequent falls. I have started him on Neurontin and have since increased this to 3 times a day. PT/OT on board and recommending short-term rehab stay. Case management on board for authorization (3) Recurrent falls: multiple falls over the last few weeks. -See above (4) B12 deficiency: start parenteral replacement while here then oral replacement at discharge (5) Pacemaker: -PPM interrogated during this hospitalization without obvious evidence of dysrhythmia. Patient was on telemetry and remained hemodynamically stable. He has since been transitioned off of telemetry (6) Acute urinary retention: -Likely secondary to BPH. Proscar now on board with Flomax which has since been increased to twice daily -Patient voiding without issues. Post void bladder scan less than 250 cc -Retention likely contributing to constipation that has since been treated and resolved (7) BPH with obstruction/lower urinary tract symptoms: -Now on Flomax twice daily and Proscar (8) Elevated troponin: -I have asked cardiology to evaluate this patient given the elevated cardiac biomarkers. I wanted to ensure that he did not perhaps have an atypical presentation and this was the cause of his fall. Cardiology not overly impressed. Believes that his cardiac biomarkers could be elevated due to HOCM, or even his accelerated BP. He will follow up with cardiology as an outpatient and have further cardiac work-up. -Cardiology not opposed to the addition of aspirin. Patient already on beta- blockade and statin therapy (9) Hypertrophic obstructive cardiomyopathy (HOCM): 05/2020 echo showed resolution of prior findings to suggest this diagnosis. Follow-up echocardiogram done during this hospital stay showing no significant change (10) Deep vein thrombosis (DVT) of left lower extremity: Recently diagnosed in 04/2020 Continue apixaban for at least 6 months and then PCP plans to reduce to preventive dose as this was his second DVT (11) Hypertriglyceridemia: Continue simvastatin 10 mg daily and fenofibrate 67 mg daily (12) Diabetes: BSGs well controlled on reduced lantus dosing. cont novolog w/ meals. (13) CKD (chronic kidney disease): - Currently at baseline (14) BRIANNA (acute kidney injury): -Acute component was likely secondary to urinary retention. Creatinine back to baseline (15) Hypertension: thus far BPs have been high & labile. Now seem more controlled he is on complex regimen including felodipine, imdur, lisinopril, and metoprolol BID. (16) Fecal impaction: -Resolved with fleets enema. Continue bowel regimen (17) History of CVA (cerebrovascular accident): -with brain MRI with small chronic infarcts in the high posterior parietal lobes bilaterally, not clinically significant, incidental -aspirin added for cardiac protection and will help decrease risk of further CVA events -no Afib -is on statin-change to atorvastatin high intensity and add ASA (18) DVT prophylaxis: on eliquis BID Disposition-? [facility] SNF vs [facility]. case mgmt on board- awaiting auth Plan of care to be discussed with Dr. Muñoz. Further orders as warranted. Admission and Anticipated Discharge Date Admission Date: October 04, 2020 Subjective Patient seen on daily rounds today. Overall, he voices no complaints or concerns. Reports he has been ambulating with therapy. Therapy services is recommending short-term rehab stay. Case management on board to help obtain authorization. Cardiology was asked to see the patient regarding his elevated cardiac biomarke rs. Patient has not had any complaints of chest pain. An echocardiogram was obtained showing no significant change from prior study done 05/12/2020. Patient on beta-blockade and statin therapy. Aspirin added. The mechanism behind his falls/leg weakness is thought to be related to diabetic peripheral neuropathy. He has since been started on gabapentin and he is tolerating this without ill effects. It is noted that his blood pressure has been accelerated. Initially was labile but then seemed to controlled. Has since been elevated (140-170 systolic over 60-80 diastolic) Patient denies fevers, chills, chest pain, shortness of breath, abdominal pain, nausea or vomiting. Denies GI/ symptomatology. Review of Systems Review of Systems: Denies fevers, chills, headache, nasal congestion, sore throat, cough, chest pain, shortness of breath, abdominal pain, nausea, vomiting, GI/ symptomatology. Physical Exam Physical Exam: General: Resting comfortably in his bedside chair. A&O X3 NAD. Cardiac: RRR with 1/6 to 2/6 MANOLO Lungs: CTA without W/R/R Abdomen: Normoactive X4. Soft and nontender in all quadrants. Extremities: Trace pitting edema of the bilateral lower extremities Results & Data Results & Data ([facility]) Vital Signs (Past 12 Hours) Vital Signs Temp Pulse Resp BP Pulse Ox 10/06/20 07:35 36.6 C 52 L 16 173/69 H 98 Laboratory Results No lab data today PG Care Time/CCT Total # of Minutes Spent Total Time Spent with Patient: Total time spent is greater than 50% in coordination of care (as documented) at patient's floor/unit and/or counseling patient: [place] [address] Subseq Hosp Care Lvl 2 Patient Type Established History Expanded Problem Focused Exam Expanded Problem Focused Medical Decision Making Moderate Complexity Diagnoses Accelerated hypertension I10 Generalized weakness R53.1 Recurrent falls R29.6 B12 deficiency E53.8 Pacemaker Z95.0 Acute urinary retention R33.8 BPH with obstruction/lower urinary tract symptoms N40.1; N13.8 Elevated troponin R77.8 Hypertrophic obstructive cardiomyopathy (HOCM) I42.1 Deep vein thrombosis (DVT) of left lower extremity I82.402 Hypertriglyceridemia E78.1 Diabetes E11.9 CKD (chronic kidney disease) N18.4 Chronic kidney disease stage: stage 4 (severe) BRIANNA (acute kidney injury) N17.9 Hypertension I10 Fecal impaction K56.41 History of CVA (cerebrovascular accident) Z86.73 DVT prophylaxis Z29.9 (1) CKD (chronic kidney disease) Chronic kidney disease stage: stage 4 (severe) Qualified Code(s): N18.4 - Chronic kidney disease, stage 4 (severe)
[2020-10-06] MEDS: ACETAMINOPHEN 325 MG TAB PO PRN (17:05)
[2020-10-07] MEDS: GABAPENTIN 100 MG CAP PO SCH ×3 (07:44→20:50)
[2020-10-07] MEDS: FELODIPINE 5 MG TABCR PO SCH (07:44)
[2020-10-07] MEDS: APIXABAN 5 MG TABLET PO SCH ×2 (07:45→20:50)
[2020-10-07] MEDS: TAMSULOSIN HCL 0.4 MG CAP PO SCH ×2 (07:45→20:49)
[2020-10-07] MEDS: METOPROLOL TARTRATE 100 MG TAB PO SCH ×2 (07:45→20:50)
[2020-10-07] MEDS: hydrALAZINE 10 MG TAB PO SCH ×2 (07:46→20:50)
[2020-10-07] MEDS: lisinopril 40 MG TAB PO SCH (07:46)
[2020-10-07] MEDS: CHOLECALCIFEROL 1,000 UNITS 25 MCG TAB PO SCH (07:47)
[2020-10-07] MEDS: ISOSORBIDE MONO EXTENDED REL 30 MG TABCR PO SCH (07:47)
[2020-10-07] MEDS: ASPIRIN 81 MG ECTAB PO SCH (07:47)
[2020-10-07] MEDS: FENOFIBRATE NANOCRYSTALLIZED 48 MG TABLET PO SCH (07:47)
[2020-10-07] MEDS: ATORVASTATIN 40 MG TAB PO SCH (07:47)
[2020-10-07] MEDS: FINASTERIDE 5 MG TAB PO SCH (07:48)
[2020-10-07] MEDS: CYANOCOBALAMIN 1000 MCG/ML VIAL IM SCH (07:48)
[2020-10-07] MEDS: DOCUSATE SODIUM 100 MG CAP PO SCH ×2 (07:51→20:49)
[2020-10-07] MEDS: INSULIN ASPART 100 UNITS/ML 3 ML PEN SC SCH ×4 (09:13→20:52)
[2020-10-07] MEDS: INSULIN GLARGINE SOLOSTAR 100 UNITS/ML 3 ML PEN SC SCH (09:14)
--- NOTE | 2020-10-07 15:51 | Hospitalist Progress Note ---
Date of Service October 07, 2020 Assessment & Plan (1) Accelerated hypertension: * BP elevated this morning; however, this was before his a.m. meds. After addition of hydralazine yesterdayBP was better * Continue felodipine, Imdur, lisinopril, and metoprolol with the addition of hydralazine (2) Generalized weakness: Based on my exam and his underlying history of diabetes mellitus, I do believe that he has some neuropathy contributing to the weakness in his lower extremities. He is not having significant pain but is unable to differentiate between sharp and dull. Neuropathy can very well be causing gait disturbances and frequent falls. I have started him on Neurontin and have since increased this to 3 times a day. PT/OT on board and recommending short-term rehab stay however insurance company denied this. I have done a peer to peer and they report they will expedite authorization for residential facility if case management pursues. I have reached out to case management regarding this u/a was not particularly suspicious for UTI Blood cultures neg x 48 hours FARZAD w/o prostatitis. COVID neg. MRI -negative for acute stroke CT head at admission noted. b12 level given his ambulatory dysfunction and ataxia -- in the mid 200s. Likely deficient. Started on IM cyanocobalamin with plan for discharge on oral supplementation (3) Recurrent falls: multiple falls over the last few weeks. -See above (4) B12 deficiency: start parenteral replacement while here then oral replacement at discharge (5) Pacemaker: -PPM interrogated during this hospitalization without obvious evidence of dysrhythmia. Patient was on telemetry and remained hemodynamically stable. He has since been transitioned off of telemetry (6) Acute urinary retention: -Likely secondary to BPH. Proscar now on board with Flomax which has since been increased to twice daily -Patient voiding without issues. Post void bladder scan less than 250 cc -Retention likely contributing to constipation that has since been treated and resolved (7) BPH with obstruction/lower urinary tract symptoms: -Now on Flomax twice daily and Proscar (8) Elevated troponin: -I have asked cardiology to evaluate this patient given the elevated cardiac biomarkers. I wanted to ensure that he did not perhaps have an atypical presentation and this was the cause of his fall. Cardiology not overly impressed. Believes that his cardiac biomarkers could be elevated due to HOCM, or even his accelerated BP. He will follow up with cardiology as an outpatient and have further cardiac work-up. -Cardiology not opposed to the addition of aspirin. Patient already on beta- blockade and statin therapy (9) Hypertrophic obstructive cardiomyopathy (HOCM): 05/2020 echo showed resolution of prior findings to suggest this diagnosis. Follow-up echocardiogram done during this hospital stay showing no significant change (10) Deep vein thrombosis (DVT) of left lower extremity: Recently diagnosed in 04/2020 Continue apixaban for at least 6 months and then PCP plans to reduce to preventive dose as this was his second DVT (11) Hypertriglyceridemia: Continue simvastatin 10 mg daily and fenofibrate 67 mg daily (12) Diabetes: BSGs well controlled on reduced lantus dosing. cont novolog w/ meals. (13) CKD (chronic kidney disease): - Currently at baseline (14) BRIANNA (acute kidney injury): -Acute component was likely secondary to urinary retention. Creatinine back to baseline (15) Hypertension: thus far BPs have been high & labile. Now seem more controlled he is on complex regimen including felodipine, imdur, lisinopril, and metoprolol BID. (16) Fecal impaction: -Resolved with fleets enema. Continue bowel regimen (17) History of CVA (cerebrovascular accident): -with brain MRI with small chronic infarcts in the high posterior parietal lobes bilaterally, not clinically significant, incidental -aspirin added for cardiac protection and will help decrease risk of further CVA events -no Afib -is on statin-change to atorvastatin high intensity and add ASA (18) DVT prophylaxis: on eliquis BID [id number] done. Authorization for inpatient acute rehab denied. Now attempting to obtain authorization for SNF to focus on rehab. Plan of care to be discussed with Dr. Muñoz. Further orders as warranted. Admission and Anticipated Discharge Date Admission Date: October 04, 2020 Subjective Patient seen on daily rounds today. Nothing new to report. Still awaiting placement/inpatient rehab authorization from insurance. I was asked to do a peer to peer. I completed this with Dr. Kellogg and they have denied in [facility]. Case management now pursuing authorization for SNF. Patient still has yet to have a BM but denies abdominal pain, nausea or vomiting. Denies fevers, chills, chest pain, shortness of breath, GI/ symptoms. Nursing voices no complaints or concerns. Review of Systems Review of Systems: Denies fevers, chills, headache, nasal congestion, sore throat, cough, chest pain, shortness of breath, abdominal pain, nausea, vomiting, GI/ symptomatology. Physical Exam Physical Exam: General: Resting comfortably in his bedside chair. A&O X3 NAD. Cardiac: RRR with 2/6 MANOLO Lungs: CTA without W/R/R Abdomen: Normoactive X4. Soft and nontender in all quadrants. Extremities: No peripheral clubbing cyanosis or edema. Patient unable to differentiate sharp versus dull Results & Data Results & Data ([facility]) Vital Signs (Past 12 Hours) Vital Signs Temp Pulse Pulse Resp BP Pulse Ox 10/07/20 15:31 36.7 C 52 L 20 153/75 H 100 10/07/20 07:45 60 10/07/20 07:41 37.4 C 56 L 20 178/93 H 98 Laboratory Results No lab data today PG Care Time/CCT Total # of Minutes Spent Total Time Spent with Patient: Total time spent is greater than 50% in coordination of care (as documented) at patient's floor/unit and/or counseling patient: C[place] [address] Subseq Hosp Care Lvl 1 Patient Type Established History Problem Focused Exam Problem Focused Medical Decision Making Straight Forward Diagnoses Accelerated hypertension I10 Generalized weakness R53.1 Recurrent falls R29.6 B12 deficiency E53.8 Pacemaker Z95.0 Acute urinary retention R33.8 BPH with obstruction/lower urinary tract symptoms N40.1; N13.8 Elevated troponin R77.8 Hypertrophic obstructive cardiomyopathy (HOCM) I42.1 Deep vein thrombosis (DVT) of left lower extremity I82.402 Hypertriglyceridemia E78.1 Diabetes E11.9 CKD (chronic kidney disease) N18.4 Chronic kidney disease stage: stage 4 (severe) BRIANNA (acute kidney injury) N17.9 Hypertension I10 Fecal impaction K56.41 History of CVA (cerebrovascular accident) Z86.73 DVT prophylaxis Z29.9 (1) CKD (chronic kidney disease) Chronic kidney disease stage: stage 4 (severe) Qualified Code(s): N18.4 - Chronic kidney disease, stage 4 (severe)
[2020-10-07] MEDS: POLYETHYLENE (MIRALAX) 17 GM PACK PO SCH (16:11)
[2020-10-07] MEDS: ACETAMINOPHEN 325 MG TAB PO PRN (17:12)
[2020-10-07] MEDS: cloNIDine HCL 0.1 MG TAB PO PRN (23:41)
[2020-10-08] MEDS: hydrALAZINE HCL 25 MG TAB PO SCH ×2 (08:26→21:51)
[2020-10-08] MEDS: TAMSULOSIN HCL 0.4 MG CAP PO SCH ×2 (08:26→21:53)
[2020-10-08] MEDS: FENOFIBRATE NANOCRYSTALLIZED 48 MG TABLET PO SCH (08:27)
[2020-10-08] MEDS: POLYETHYLENE (MIRALAX) 17 GM PACK PO SCH (08:27)
[2020-10-08] MEDS: ATORVASTATIN 40 MG TAB PO SCH (08:27)
[2020-10-08] MEDS: CHOLECALCIFEROL 1,000 UNITS 25 MCG TAB PO SCH (08:27)
[2020-10-08] MEDS: lisinopril 40 MG TAB PO SCH (08:27)
[2020-10-08] MEDS: ASPIRIN 81 MG ECTAB PO SCH (08:27)
[2020-10-08] MEDS: ISOSORBIDE MONO EXTENDED REL 30 MG TABCR PO SCH (08:27)
[2020-10-08] MEDS: FELODIPINE 5 MG TABCR PO SCH (08:28)
[2020-10-08] MEDS: METOPROLOL TARTRATE 100 MG TAB PO SCH ×2 (08:28→21:52)
[2020-10-08] MEDS: FINASTERIDE 5 MG TAB PO SCH (08:28)
[2020-10-08] MEDS: APIXABAN 5 MG TABLET PO SCH ×2 (08:28→21:52)
[2020-10-08] MEDS: GABAPENTIN 100 MG CAP PO SCH ×3 (08:28→21:52)
[2020-10-08] MEDS: DOCUSATE SODIUM 100 MG CAP PO SCH ×2 (08:30→22:01)
[2020-10-08] MEDS: INSULIN ASPART 100 UNITS/ML 3 ML PEN SC SCH ×4 (09:08→21:55)
[2020-10-08] MEDS: INSULIN GLARGINE SOLOSTAR 100 UNITS/ML 3 ML PEN SC SCH (09:08)
--- NOTE | 2020-10-08 17:13 | Hospitalist Progress Note ---
Date of Service October 08, 2020 Assessment & Plan (1) Accelerated hypertension: * Currently controlled with felodipine, Imdur, lisinopril, and metoprolol with the addition of hydralazine (2) Generalized weakness: Based on my exam and his underlying history of diabetes mellitus, I do believe that he has some neuropathy contributing to the weakness in his lower extremities. He is not having significant pain but is unable to differentiate between sharp and dull. Neuropathy can very well be causing gait disturbances and frequent falls. I have started him on Neurontin and have since increased this to 3 times a day. He is tolerating this. With continued inpatient PT/OT, he is showing improvement in his ambulatory dysfunction. PT/OT on board and recommending short-term rehab stay. Case management on board to help facilitate. Awaiting authorization -UTI was ruled out -Blood cultures done and negative -Covid rapid antigen negative -MRI -negative for acute stroke -CT head on admission negative -b12 level low level of normal and could be contributing to ambulatory dysfunction. Given IM cyanocobalamin and now started on oral supplementation (3) Recurrent falls: multiple falls over the last few weeks. -See above (4) B12 deficiency: Started on supplementation (5) Pacemaker: -PPM interrogated during this hospitalization without obvious evidence of dysrhythmia. Patient was on telemetry and remained hemodynamically stable. He has since been transitioned off of telemetry (6) Acute urinary retention: -Likely secondary to BPH. Proscar now on board with Flomax which has since been increased to twice daily -Patient voiding without issues. Post void bladder scan less than 250 cc -Retention likely contributing to constipation that has since been treated and resolved (7) BPH with obstruction/lower urinary tract symptoms: -Now on Flomax twice daily and Proscar (8) Elevated troponin: -I have asked cardiology to evaluate this patient given the elevated cardiac biomarkers. I wanted to ensure that he did not perhaps have an atypical presentation and this was the cause of his fall. Cardiology not overly impressed. Believes that his cardiac biomarkers could be elevated due to HOCM, or even his accelerated BP. He will follow up with cardiology as an outpatient and have further cardiac work-up. -Cardiology not opposed to the addition of aspirin. Patient already on beta- blockade and statin therapy (9) Hypertrophic obstructive cardiomyopathy (HOCM): 05/2020 echo showed resolution of prior findings to suggest this diagnosis. Follow-up echocardiogram done during this hospital stay showing no significant change (10) Deep vein thrombosis (DVT) of left lower extremity: Recently diagnosed in 04/2020 Continue apixaban for at least 6 months and then PCP plans to reduce to preventive dose as this was his second DVT (11) Hypertriglyceridemia: Continue simvastatin 10 mg daily and fenofibrate 67 mg daily (12) Diabetes: BSGs well controlled on reduced lantus dosing. cont novolog w/ meals. (13) CKD (chronic kidney disease): - Currently at baseline (14) BRIANNA (acute kidney injury): -Acute component was likely secondary to urinary retention. Creatinine back to baseline (15) Hypertension: thus far BPs have been high & labile. Now seem more controlled he is on complex regimen including felodipine, imdur, lisinopril, and metoprolol BID. (16) Fecal impaction: -Resolved with fleets enema. Continue bowel regimen (17) History of CVA (cerebrovascular accident): -with brain MRI with small chronic infarcts in the high posterior parietal lobes bilaterally, not clinically significant, incidental -aspirin added for cardiac protection and will help decrease risk of further CVA events -no Afib -is on statin-change to atorvastatin high intensity and add ASA (18) DVT prophylaxis: on eliquis BID Disposition: Acute rehab stayawaiting authorization/approval. Case management on board Plan of care to be discussed with Dr. Muñoz. Further orders as warranted. Admission and Anticipated Discharge Date Admission Date: October 04, 2020 Subjective Patient seen on daily rounds today. I was asked yesterday to do a peer to peer for patient to go to acute rehab/[facility]. To physician reviewer who declined but reported would authorize for intermediate for acute rehab. Patient's ambulation has improved with inpatient PT/OT and the addition of Neurontin. He is close to/not far from baseline at this time. Hydralazine was since increased due to persistent high blood pressures. Blood pressure is now 121/62. Moving his bladder with the increase of Flomax and the addition of Proscar Still has yet to move his bowels; however, does not feel the urge to go. His abdomen is nondistended. He does not have any nausea or abdominal pain. Again he was given an enema upon presentation into the ED/admission and had a very large and multiple BMs following. Review of Systems Review of Systems: Denies fevers, chills, headache, nasal congestion, sore throat, cough, chest pain, shortness of breath, abdominal pain, nausea, vomiting, GI/ symptomatology. Physical Exam Physical Exam: General: Resting comfortably in his bedside chair. A&O X3 NAD. Cardiac: RRR with 1/6 to 2/6 MANOLO Lungs: CTA without W/R/R Abdomen: Normoactive X4. Soft and nontender in all quadrants. Extremities: Trace pitting edema of the bilateral lower extremities Results & Data Results & Data ([facility]) Vital Signs (Past 12 Hours) Vital Signs Temp Pulse Resp BP BP Pulse Ox 10/08/20 15:06 36.4 C L 60 20 121/62 99 10/08/20 07:39 36.4 C L 50 L 20 151/83 H 99 Laboratory Results No lab data today PG Care Time/CCT Total # of Minutes Spent Total Time Spent with Patient: Total time spent is greater than 50% in coordination of care (as documented) at patient's floor/unit and/or counseling patient: Coding [place] [address] Subseq Hosp Care Lvl 1 Patient Type Established History Problem Focused Exam Problem Focused Medical Decision Making Straight Forward Diagnoses Accelerated hypertension I10 Generalized weakness R53.1 Recurrent falls R29.6 B12 deficiency E53.8 Pacemaker Z95.0 Acute urinary retention R33.8 BPH with obstruction/lower urinary tract symptoms N40.1; N13.8 Elevated troponin R77.8 Hypertrophic obstructive cardiomyopathy (HOCM) I42.1 Deep vein thrombosis (DVT) of left lower extremity I82.402 Hypertriglyceridemia E78.1 Diabetes E11.9 CKD (chronic kidney disease) N18.4 Chronic kidney disease stage: stage 4 (severe) BRIANNA (acute kidney injury) N17.9 Hypertension I10 Fecal impaction K56.41 History of CVA (cerebrovascular accident) Z86.73 DVT prophylaxis Z29.9 (1) CKD (chronic kidney disease) Chronic kidney disease stage: stage 4 (severe) Qualified Code(s): N18.4 - Chronic kidney disease, stage 4 (severe)
[2020-10-08] MEDS: cloNIDine HCL 0.1 MG TAB PO PRN (23:23)
[2020-10-09] MEDS ORDERED: CYANOCOBALAMIN 500 MCG TABLET (VITAMIN B-12) PO SCH (09:00)
[2020-10-09] MEDS: ASPIRIN 81 MG ECTAB PO SCH (09:24)
[2020-10-09] MEDS: DOCUSATE SODIUM 100 MG CAP PO SCH (09:24)
[2020-10-09] MEDS: ATORVASTATIN 40 MG TAB PO SCH (09:24)
[2020-10-09] MEDS: APIXABAN 5 MG TABLET PO SCH (09:24)
[2020-10-09] MEDS: GABAPENTIN 100 MG CAP PO SCH ×2 (09:25→13:14)
[2020-10-09] MEDS: FINASTERIDE 5 MG TAB PO SCH (09:25)
[2020-10-09] MEDS: FENOFIBRATE NANOCRYSTALLIZED 48 MG TABLET PO SCH (09:25)
[2020-10-09] MEDS: CHOLECALCIFEROL 1,000 UNITS 25 MCG TAB PO SCH (09:25)
[2020-10-09] MEDS: FELODIPINE 5 MG TABCR PO SCH (09:25)
[2020-10-09] MEDS: hydrALAZINE HCL 25 MG TAB PO SCH (09:26)
[2020-10-09] MEDS: lisinopril 40 MG TAB PO SCH (09:26)
[2020-10-09] MEDS: ISOSORBIDE MONO EXTENDED REL 30 MG TABCR PO SCH (09:26)
[2020-10-09] MEDS: TAMSULOSIN HCL 0.4 MG CAP PO SCH (09:27)
[2020-10-09] MEDS: METOPROLOL TARTRATE 100 MG TAB PO SCH (09:27)
[2020-10-09] MEDS: POLYETHYLENE (MIRALAX) 17 GM PACK PO SCH (09:27)
[2020-10-09] MEDS: INSULIN ASPART 100 UNITS/ML 3 ML PEN SC SCH ×2 (09:29→13:14)
[2020-10-09] MEDS: INSULIN GLARGINE SOLOSTAR 100 UNITS/ML 3 ML PEN SC SCH (09:31)
--- NOTE | 2020-10-09 17:53 | Discharge Summary ---
Date of Service October 09, 2020 Admission HPI Per Admitting Provider The patient is a 75-year-old male with a past medical history including CKD, left lower extremity DVT, ambulatory dysfunction, anxiety and depression, urinary incontinence, BPH with LUTS, diabetes mellitus, memory impairment, anemia of chronic disease, hypertrophic obstructive cardiomyopathy, proliferative diabetic retinopathy, squamous cell carcinoma, hypertriglyceridemia, vitamin D deficiency, secondary hyperparathyroidism, pacemaker, cardiomyopathy and spinal stenosis. He presents to the emergency department with acute onset of chills and shakes, generalized weakness and history of a recent fall. He is mildly confused, and not able to relate more of his symptoms. In the emergency department, patient was noted by bladder scan to have of 800 cc of urinary retention, and King catheter was placed. Admission Exam Per Admitting Provider The patient is awake, confused, well developed and well nourished, normocephalic and atraumatic, lying in bed and in mild distress associated with chills and shakes. HEENT--PERRL, EOMI, mucous membranes and oropharynx dry. Neck--supple. No JVD. No bruits. Thyroid normal, trachea midline, no colette opathy. Heart--normal S1 and S2. No murmurs, rubs or gallops. Lungs--clear bilaterally, no respiratory distress, no accessory muscle use. Abdomen--normal bowel sounds and soft. Nontender. Nondistended. Extremities--right lower extremity with 1+ pretibial pitting edema. Left lower extremity 2+ pretibial pitting edema Dermatologic--scattered ecchymoses and surface abrasions on lower extremities Neurologic--cranial nerves II through XII grossly intact. Rheumatologic--normal range of motion. Psychiatric--confused Principal Diagnosis Working diagnoses: 1. Ambulatory dysfunction 2. Diabetic peripheral neuropathy 3. Accelerated HTNimproving 4. BPH with urinary retentionretention resolved 5. Fecal impactiontreated and resolved 6. B12 deficiency 7. Elevated troponinseen by cardiology. Deemed likely due to accelerated HTN versus HOCM Chronic medical conditions: 1. BPH 2. History of DVTon chronic anticoagulation therapy 3. HOCM 4. Hypertriglyceridemia 5. Diabetes mellitus 6. CKD 7. HTN 8. History of CVA Discharge Exam General: Resting comfortably in his bedside chair. A&O X3 NAD. Cardiac: RRR with 1/6 to 2/6 MANOLO Lungs: CTA without W/R/R Abdomen: Normoactive X4. Soft and nontender in all quadrants. Extremities: Trace pitting edema of the bilateral lower extremities Discharge Data Allergies Allergy/AdvReac Type Severity Reaction Status Date / Time No Known Allergies Allergy ` Verified 10/01/20 21:38 Consultations 10/01/20 23:30 ED Decision to Admit Stat 10/05/20 12:39 Consult Cardiology Routine ASSESSMENT/PLAN: 1. Elevated troponin: Etiology uncertain. He did not present with acute coronary syndrome and has not had any anginal symptoms. He may have underlying CAD given his risk factors including diabetes. It does not appear that cardiac etiology is responsible for his mechanical falls. Risk factor modification. Elevated troponins could also be due to strain as he has had LVOT obstruction in the past with chordal EDWIN and asymmetric hypertrophy of the anteroseptum. Repeat echo. 2. LVOT obstruction/HCM: Asymmetric LV hypertrophy and chordal Edwin while LV was hyperdynamic. Most recent echo in May of 2020 did not demonstrate obstruction. Repeat echo. 3. Hypertension: Was significantly hypertensive earlier this hospital stay, which could also lead to minimal troponin elevation, especially with other factors as noted above. Continue home medications for now. Adjust medications as appropriate. 4. Recurrent falls: Based on his description and also the description provided by his brother, falls appear to be mechanical. As per primary service. 5. Sinus node dysfunction s/p dual chamber pacemaker: Followed by Dr. Prieto. He was notified of patient's admission as he was scheduled to be seen in the office today for pacemaker interrogation. 6. Disposition: Please call with any other questions or concerns. Patient care communicated with Milagros Hui of the primary hospitalist service. Thank you for allowing me to participate in the care of your patient. Please call for any other questions or concerns. Sincerely, Guerrero Argueta M.D. Ordered Studies 10/01/20 19:58 CT abd pelvis wo con Urgent IMPRESSION: 1. Suboptimal examination without oral and IV contrast. There is also streak and motion artifact. 2. There are no acute infectious or inflammatory findings in the abdomen or pelvis. 3. Prostatomegaly and bladder distention. 4. There is rectosigmoid fecal retention and moderate constipation. 5. Cardiomegaly and cardiac pacemaker. 6. Additional findings as above. 10/01/2020XR: MPRESSION: No acute cardiopulmonary findings. No change in appearance of the chest. 04/03/2020 CT head/brain wo con Urgent No intra or extra-axial mass lesions are visualized. There is no CT evidence of acute cortical infarction. There is no evidence of midline shift. There is no acute hemorrhage. No calvarial fractures are visualized. There are patchy white matter hypodensities likely on a small vessel basis. There is no evidence of pathologic ventricular dilatation. There is no evidence of acute sinusitis IMPRESSION: No acute intracranial findings 10/03/20 12:06 MR brain wo con Routine IMPRESSION: 1. No acute intracranial abnormality is identified. 2. Senescent change and small chronic infarcts as above 10/06/2020 Transthoracic echocardiogram: Normal left ventricular size with EF of 65 to 70%. No regional wall motion abnormalities. Moderate left atrial dilation. Sclerotic aortic valve without significant stenosis. Mild mitral annular calcification. No significant change from prior study done 05/12/2020. Hospital Course (1) Accelerated hypertension: * Currently controlled with felodipine, Imdur, lisinopril, and metoprolol with the addition of hydralazine (2) Generalized weakness: Based on my exam and his underlying history of diabetes mellitus, I do believe that he has some neuropathy contributing to the weakness in his lower extremities. He is not having significant pain but is unable to differentiate between sharp and dull. Neuropathy can very well be causing gait disturbances and frequent falls. I have started him on Neurontin and have since increased this to 3 times a day. He is tolerating this. Although ambulatory dysfunction has improved since hospitalization, PT is recommending continued inpatient rehabilitation for strength training. Patient agreeable. Plan is for discharge to [facility] swing bed program. -UTI was ruled out -Blood cultures done and negative -Covid rapid antigen negative -MRI -negative for acute stroke -CT head on admission negative -b12 level low level of normal and could be contributing to ambulatory dysfunction. Given IM cyanocobalamin and now started on oral supplementation (3) Recurrent falls: multiple falls over the last few weeks. -See above (4) B12 deficiency: Started on supplementation. May have been contributing to weakness in legs and gait abnormality (5) Pacemaker: -PPM interrogated during this hospitalization without obvious evidence of dysrhythmia. Patient was on telemetry and remained hemodynamically stable. (6) Acute urinary retention: -Likely secondary to BPH. Proscar now on board with Flomax which has since been increased to twice daily -Patient voiding without issues. Post void bladder scan less than 250 cc -Retention likely contributing to constipation that has since been treated and resolved (7) BPH with obstruction/lower urinary tract symptoms: -Now on Flomax twice daily and Proscar (8) Hypertrophic obstructive cardiomyopathy (HOCM): echo shows no change (9) Deep vein thrombosis (DVT) of left lower extremity: Recently diagnosed in 04/2020 Continue apixaban for at least 6 months and then PCP plans to reduce to preventive dose as this was his second DVT (10) Hypertriglyceridemia: Continue simvastatin 10 mg daily and fenofibrate 67 mg daily (11) Diabetes: BSGs well controlled on reduced lantus dosing. cont novolog w/ meals. (12) CKD (chronic kidney disease): - Currently at baseline (13) BRIANNA (acute kidney injury): -Acute component was likely secondary to urinary retention. Creatinine ba ck to baseline (14) Hypertension: thus far BPs have been high & labile. he is on complex regimen including felodipine, imdur, lisinopril, and metoprolol BID. continue this regimen (15) Fecal impaction: -Resolved with fleets enema. Continue bowel regimen (16) History of CVA (cerebrovascular accident): -with brain MRI with small chronic infarcts in the high posterior parietal lobes bilaterally, not clinically significant, incidental -aspirin added for cardiac protection and will help decrease risk of further CVA events -no Afib -is on statin-change to atorvastatin high intensity and add ASA (17) DVT prophylaxis: on eliquis BID Disposition: Acute rehab stayawaiting authorization Total Time Total Time Spent Total Time Spent (In Minutes): 45 min Total Time Includes: Examination of the Patient, Discharge Planning and Medication Reconciliation Discharge Plan Discharge Items Patient Disposition: Transfer [facility] Reason For Visit: ELEV. TROPONIN, URINARY RETENT., UTI, PYELO Discharge Diagnosis: 1. ambulatory dysfunction/ weakness 2. diabetic neuropathy 3. Accelerated HTN 4. Urinary retentionresolved 5. Fecal impactiontreated and resolved 6. B12 deficiency Activity: Resume your previous activity Non-emergency contact: Primary Care Provider Call non-emergency contact if: you have any medication questions Follow-up/Referrals: Tino Pete DO [Primary Care Provider] - Diet: Carb Consistent or DM2 and Heart Healthy Addtl Attending Provider Instructions: -Patient was brought to the ED d/t frequent falls with progressive weakness of the lower extremities. -All sources on infection were ruled out (including blood cultures, urine culture, CXR). -His head CT was negative and subsequently and MRI was performed that was also negative. -cardiac enzymes were elevated but patient did not have CP or EKG changes. Cardiology caw patient and an echocardiogram was performed. Cardiology deemed that no further W/U needed and likely elevated given his h/o HOCM and accelerated HTN. patient started on ASA and statin(already on BB) -hydralazine was added for increased blood pressure -weakness of the legs thought to be related to newly diagnosed peripheral neuropathy related to his underlying DM (pt unable to differentiate between sharp and dull)-- started on neurontin and improving. -patient lives alone and his overall gait is improving, but PT/OT recommended continued IP stay for short term rehab -upon presentation into the ED, pt was noted to have urinary retention (requiring straight cath) which was likely exacerbated by his severe constipation/impaction (which was treated with enemas and since resolved). Patient now on bowel regimen. In addition- flomax increased to BID and Proscar added. Post void bladder scan <250 residual. -in addition, noted to have a low B12; thus, started on supplementation Recommendations: - proved meds as outlined - continue in house PT/OT - FU labs at discretion of House provider - follow up with cardiology 4-6 weeks - return to ED for new or worsening symptoms Pending Studies at Discharge: No Stand-Alone Forms: My [facility] Skilled Items Patient informed of condition?: Yes DNR: No Discharge Level of Care: Acute rehab Communicable Disease: No Discharge Prognosis: Improving Lines: None Urinary Catheter: No Medications and DC Order Prescriptions: New acetaminophen 325 mg Tablet 650 mg PO Q4H PRN (Reason: [place]/fever/pain) Qty: 30 RF: 0 polyethylene glycol 3350 [Miralax] 17 gram Powder In Packet 17 g PO DAILY Qty: 30 RF: 0 isosorbide mononitrate 30 mg Tablet Extended Release 24 Hr 60 mg PO DAILY Qty: 60 RF: 0 hydralazine 25 mg Tablet 25 mg PO BID Qty: 60 RF: 0 aspirin 81 mg Tablet,Delayed Release (Dr/Ec) 81 mg PO QAM Qty: 30 RF: 0 cyanocobalamin (vitamin B-12) 500 mcg Tablet 1,000 mcg PO QAM Qty: 60 RF: 0 tamsulosin 0.4 mg Capsule 0.4 mg PO BID Qty: 60 RF: 0 docusate sodium 100 mg Capsule 100 mg PO BID Qty: 60 RF: 0 gabapentin 100 mg Capsule 100 mg PO TID Qty: 90 RF: 0 finasteride [Proscar] 5 mg Tablet 5 mg PO QAM Qty: 30 RF: 0 Continued fenofibrate micronized 67 mg capsule 67 mg PO DAILY Qty: 90 RF: 3 felodipine 10 mg tablet extended release 24 hr 10 mg PO DAILY Qty: 90 RF: 3 lisinopril 40 mg tablet 40 mg PO DAILY Qty: 90 RF: 3 metoprolol tartrate 100 mg tablet 100 mg PO BID Qty: 180 RF: 3 (DME) EnhatchTouch Ultra Blue Test Strip Strip See Dose Instructions .ROUTE .MEDSUPPLY Qty: 100 RF: 6 simvastatin 10 mg tablet 10 mg PO DAILY Qty: 90 RF: 1 solifenacin [Vesicare] 10 mg tablet 10 mg PO DAILY Qty: 30 RF: 2 Toujeo SoloStar U-300 Insulin 300 unit/mL (1.5 mL) insulin pen 30 unit SUBCUT DAILY RF: 0 Eliquis 5 mg tablet 5 mg PO BID Qty: 60 RF: 5 cholecalciferol (vitamin D3) 25 mcg (1,000 unit) capsule 1,000 units PO DAILY Qty: 90 RF: 3 Discontinued allopurinol 300 mg tablet 300 mg PO UD Qty: 90 RF: 3 Discharge Orders: Discharge Order (Routine); Ordered 10/09/20 Ordered By: Milagros Garvin/Other Patient Handouts: Diabetic Neuropathy Admission Data Admit Date/Time: 10/04/20 16:22 Attending Provider: Adonay Muñoz Admit Provider: Guanako Woodruff Primary Care Provider: Tino Pete Other Providers: Guanako Woodruff ; [facility] ; [facility] ; Cheko Argueta ; [facility] ; [facility] Other Interventions: Discharge Summary Assessment (RN) Last Done: 10/09/20 15:55 Supervising Physician Co-Signing Physician Notes Patient seen and examined on the day of discharge. I agree with the discharge summary by Milagros ARNDT. I have reviewed the chart including labs, imaging and plans for discharge. patient approved for rehab bed today his strength is slowly improving but he need rehab stay thorough work up did not reveal obvious etiology for weakness - Accelerated HTN: BP better with addition of Hydralazine - Weakness: too weak to go home, will go to [facility] swing bed for rehab Coding Level of Care Code D/C DAY MANAGEMENT >30 MINS Diagnoses Accelerated hypertension I10 Generalized weakness R53.1 Recurrent falls R29.6 B12 deficiency E53.8 Pacemaker Z95.0 Acute urinary retention R33.8 BPH with obstruction/lower urinary tract symptoms N40.1; N13.8 Hypertrophic obstructive cardiomyopathy (HOCM) I42.1 Deep vein thrombosis (DVT) of left lower extremity I82.402 Hypertriglyceridemia E78.1 Diabetes E11.9 CKD (chronic kidney disease) N18.4 Chronic kidney disease stage: stage 4 (severe) BRIANNA (acute kidney injury) N17.9 Hypertension I10 Fecal impaction K56.41 History of CVA (cerebrovascular accident) Z86.73 DVT prophylaxis Z29.9 Time Spent (min) 45
== END 2020-10-09 13:55 | DRG 92 ==
LOC: 2E 19:39 → ED 19:39 → SUATTDRO 10-02 01:05 → 2E 10-02 02:10 → SUATTDRO 10-04 16:22 → 3W 10-04 18:17

== ENCOUNTER 2020-10-16 15:07 | Inpatient (IN) ==
--- NOTE | 2020-10-16 14:55 | Emergency Department Note ---
Impression & Plan Brain TIA, Facial droop ED Provider Note NAME: ELISABETH DUGAN AGE: 75 SEX: M : 1945 ARRIVES VIA: Ambulance INFORMANT: patient, ED PROVIDER(S): Bao Fleming MD Chief Complaint: Facial droop HPI: Patient did present in the outpatient setting from home after returning from [facility] due to concern for left-sided facial droop. Code stroke was initiated. Patient denies any fevers chills chest pain shortness of breath nausea or vomiting. The patient is unsure but states that his brother had not iced something and had called the ambulance. The patient states that he did have some falls 2 to 4 weeks ago. The patient did have a hospital stay here at [facility] and subsequently was at [facility] for rehab for bilateral lower extremity weakness. The patient does feel as though his left is slightly greater in weakness than his right. Patient denies any numbness tingling. Patient denies any LOC. The patient denies any slurred speech. Patient was recently seen due to concern for hypertension and generalized weakness. Patient had negative urinalysis and blood cultures. Patient had negative Covid and MRI as well as CT head. B12 was slightly low at that time and the patient has been having some recurrent falls. Patient does have a pacemaker which was interrogated during the hospitalization without any evidence of dysrhythmia. Patient did have some notable urinary retention secondary to BPH. Patient had an unchanged echo at the time of his admission. Recently diagnosed DVT in April 2020 and is still to be on apixaban. He last took this this morning. ROS: See HPI for pertinent positives and negatives. A total of 10 systems were reviewed and otherwise negative. Past medical history: See below Surgical history: See below Social history: See below Physical Exam: GENERAL: Wearing glasses and a mask. NAD, non-toxic. EYE EXAM: Normal conjunctiva. PERRL, no anisocoria and EOM's grossly intact w/o pain. NECK: Supple, no nuchal rigidity, no adenopathy, non-tender. No signs of meningismus. LUNGS: Clear to auscultation. Normal chest wall mechanics. HEART: NSR, no MRG. ABDOMEN: Abdomen soft, non-tender, normo-active bowel sounds, no masses, no rebound or guarding. BACK: No CVA TTP. SKIN: No rashes and no bruising. UPPER EXTREMITIES: Upper extremities are grossly normal. LOWER EXTREMITIES: Grossly normal, no edema. NEURO EXAM: A&O x3, cranial nerves II-XII grossly intact, normal speech, moves all 4 extremities on command w/o issue. Differential diagnoses: Infection, dehydration, metabolic abnormality, hypo/hyperglycemia, electrolyte disturbance, anemia, hypoxia, cardiac sources, intracerebral event, toxicologic, neurologic, as well as other pathologies. Course: Patient was seen and evaluated the bedside. Full history physical exam was p erformed. EKG interpreted by me Atrial paced block, rate of 58, wide QRS. Bundle branch block pattern. Imaging Studies: See below Cardiac monitoring: An order was placed for continuous cardiac monitoring. The monitor shows a rate of 55 with regular rhythm. MDM: Patient was seen due to concern for possible TIA and left-sided facial droop. The patient did have blood work completed along with CT head and CT angiography of the head and neck. Patient has mild leukopenia and anemia. Platelet count is normal. Does have prerenal azotemia and IV fluids were ordered. Troponin is detectable but is not elevated compared to prior. CT angiography shows some stenosis. There is some slightly limited right vertebral artery stenosis. No evidence of trauma vessel occlusion and no intracranial aneurysm. Please read the on-call hospitalist Dr. Sales and the patient was admitted to the medicine service. The patient upon presentation had an NIH of 0. A code stroke had been initiated in the field but was not further pursued as the patient symptoms had resolved. No TPA given. Past Med/Surg History Medical History (Updated 10/16/20 @ 16:59 by Bao Fleming MD) Anemia of chronic disease BPH with obstruction/lower urinary tract symptoms CKD (chronic kidney disease) Deep vein thrombosis (DVT) of left lower extremity Diabetes Elevated troponin History of CVA (cerebrovascular accident) Hypertension Hypertriglyceridemia Hypertrophic obstructive cardiomyopathy (HOCM) Low back pain Mobitz (type) II atrioventricular block Proteinuria Sinus node dysfunction Skin carcinoma Spinal stenosis Subclavian vein thromboembolism, acute Syncope and collapse Surgical History (Updated 10/05/20 @ 16:04 by Cheko Argueta MD) H/O arthroscopy of knee History of cataract surgery Status post placement of cardiac pacemaker Family History Mother Ovarian cancer Diabetes Father Diabetes Unknown Coronary heart disease Denies family history of Prostate cancer Myocardial infarction Breast cancer Colorectal cancer Social History Smoking Status: Unknown if ever smoked Second Hand Exposure: No; Hx Alcohol Use: No Hx Substance Use: No Preferred Language: Thai Communication Ability: Effective Animal Therapist Required: No Beliefs That Will Affect Care: None marital status: / Current Living Situation: Alone current occupational status: retired Feels Safe at Home: Yes Childhood Exposure to Second-Hand Smoke: No caffeine: Yes Dental Care, Regularly: Yes Physical Activity Frequency: 1-2 Times per Week Seatbelt Use: always Sunscreen Use: No Assistive Devices: Walker Allergies Allergies Allergy/AdvReac Type Severity Reaction Status Date / Time No Known Allergies Allergy ` Verified 10/01/20 21:38 Home Meds Home Medications Medication Instructions Recorded Confirmed insulin glargine U-300 conc 300 30 unit SUBCUT DAILY ml 07/13/20 10/01/20 unit/mL (1.5 mL) subcutaneous pen (TouComixologyo SoloStar U-300 Insulin) Previous Rx's Medication Instructions Recorded cholecalciferol (vitamin D3) 25 1,000 units PO DAILY #90 cap 09/09/19 mcg (1,000 unit) capsule fenofibrate micronized 67 mg 67 mg PO DAILY #90 cap 12/05/19 capsule felodipine 10 mg tablet,extended 10 mg PO DAILY #90 tab 02/04/20 release 24 hr lisinopril 40 mg tablet 40 mg PO DAILY #90 tab 02/10/20 metoprolol tartrate 100 mg tablet 100 mg PO BID #180 tab 05/11/20 blood sugar diagnostic (OneTouch #100 ea 06/29/20 Ultra Blue Test Strip) apixaban 5 mg tablet (Eliquis) 5 mg PO BID #60 tab 07/13/20 simvastatin 10 mg tablet 10 mg PO DAILY #90 tab 08/18/20 solifenacin 10 mg tablet (Vesicare) 10 mg PO DAILY #30 tab 08/19/20 acetaminophen 325 mg tablet 650 mg PO Q4H PRN #30 tab 10/09/20 aspirin 81 mg tablet,delayed 81 mg PO QAM #30 tab 10/09/20 release cyanocobalamin (vitamin B-12) 500 1,000 mcg PO QAM #60 tab 10/09/20 mcg tablet docusate sodium 100 mg capsule 100 mg PO BID #60 cap 10/09/20 finasteride 5 mg tablet (Proscar) 5 mg PO QAM #30 tab 10/09/20 gabapentin 100 mg capsule 100 mg PO TID #90 cap 10/09/20 hydralazine 25 mg tablet 25 mg PO BID #60 tab 10/09/20 isosorbide mononitrate 30 mg 60 mg PO DAILY #60 tab 10/09/20 tablet,extended release 24 hr polyethylene glycol 3350 17 gram 17 g PO DAILY #30 ea 10/09/20 oral powder packet (Miralax) tamsulosin 0.4 mg capsule 0.4 mg PO BID #60 cap 10/09/20 Results & Data (ED) Vital Signs Vital Signs - 24 hr 10/16/20 15:23 10/16/20 15:28 10/16/20 16:07 Temperature 36.8 C Temperature Source Oral Pulse Rate [Apical] 53 L 55 L Pulse Rate [Finger] 53 L Respiratory Rate 20 24 Respiratory Effort / Characteristics Non-Labored Respiratory Depth Normal Respiratory Pattern Regular Blood Pressure [Left Arm] 131/63 106/60 Blood Pressure Mean [Left Arm] 85 75 Pulse Oximetry 96 97 Oxygen Delivery Method Room Air Room Air Sepsis Recent Fever Within 48 Hours No Sepsis New/Unexplained Change in Mental Status No Sepsis Action Taken by Nursing No Action Required 10/16/20 16:35 Temperature Temperature Source Pulse Rate [Apical] 55 L Pulse Rate [Finger] Respiratory Rate 20 Respiratory Effort / Characteristics Respiratory Depth Respiratory Pattern Blood Pressure [Left Arm] 118/64 Blood Pressure Mean [Left Arm] 82 Pulse Oximetry 94 Oxygen Delivery Method Room Air Sepsis Recent Fever Within 48 Hours Sepsis New/Unexplained Change in Mental Status Sepsis Action Taken by Detention Medications Current Medication List: was personally reviewed by me Laboratory Data Attestation: I reviewed the patient's lab results. Result diagrams: 10/16/20 15:20 10/16/20 15:20 Lab Results 10/16/20 10/16/20 10/16/20 Range/Units 15:20 15:20 15:20 WBC 4.54 L (4.8-10.8) K/uL RBC 3.13 L (4.7-6.1) M/uL Hgb 9.8 L (14.0-18.0) g/dL Hct 29.3 L (42-52) % MCV 93.6 (80-100) fL MCH 31.3 (25-34) pg MCHC 33.4 (32-36) g/dL RDW Std Deviation 48.6 H (36.4-46.3) fL RDW Coeff of Nona 14.2 (11.5-14.5) % Plt Count 158 (130-400) K/uL MPV 9.8 (7.4-10.4) fL Immature Gran % (Auto) 0.2 % Neut % (Auto) 64.4 % Lymph % (Auto) 24.4 % Hubbard % (Auto) 7.3 % Eos % (Auto) 3.5 % Baso % (Auto) 0.2 % Neut # (Auto) 2.92 (1.4-6.5) K/uL Lymph # (Auto) 1.11 L (1.2-3.4) K/uL Hubbard # (Auto) 0.33 (0.11-0.59) K/uL Eos # (Auto) 0.16 (0-0.5) K/uL Baso # (Auto) 0.01 (0-0.2) K/uL Immature Gran # (Auto) 0.01 (0.00-0.02) K/uL PT 11.6 (9.0-12.0) Seconds INR 1.2 H (0.9-1.1) APTT 30.6 (21.0-31.0) Seconds PTT Ratio 1.2 Sodium (136-145) mmol/L Potassium (3.5-5.1) mmol/L Chloride (98-107) mmol/L Carbon Dioxide (21-32) mmol/L Anion Gap (3-11) BUN (7-18) mg/dl Creatinine (0.6-1.4) mg/dl Est Cr Clr Drug Dosing ml/min Est GFR ( Amer) ml/min Est GFR (Non-Af Amer) ml/min BUN/Creatinine Ratio (10-20) Glucose (70-99) mg/dl Calcium (8.5-10.1) mg/dl Magnesium (1.8-2.4) mg/dl Total Bilirubin (0.2-1) mg/dl AST (15-37) U/L ALT (12-78) U/L Alkaline Phosphatase (45-117) U/L Troponin I (0-0.045) ng/ml Total Protein (6.4-8.2) gm/dl Albumin (3.4-5.0) gm/dl Globulin (2.5-4.0) gm/dl Albumin/Globulin Ratio (0.9-2) Blood Type O Positive Antibody Screen NEGATIVE 10/16/20 Range/Units 15:20 WBC (4.8-10.8) K/uL RBC (4.7-6.1) M/uL Hgb (14.0-18.0) g/dL Hct (42-52) % MCV (80-100) fL MCH (25-34) pg MCHC (32-36) g/dL RDW Std Deviation (36.4-46.3) fL RDW Coeff of Nona (11.5-14.5) % Plt Count (130-400) K/uL MPV (7.4-10.4) fL Immature Gran % (Auto) % Neut % (Auto) % Lymph % (Auto) % Hubbard % (Auto) % Eos % (Auto) % Baso % (Auto) % Neut # (Auto) (1.4-6.5) K/uL Lymph # (Auto) (1.2-3.4) K/uL Hubbard # (Auto) (0.11-0.59) K/uL Eos # (Auto) (0-0.5) K/uL Baso # (Auto) (0-0.2) K/uL Immature Gran # (Auto) (0.00-0.02) K/uL PT (9.0-12.0) Seconds INR (0.9-1.1) APTT (21.0-31.0) Seconds PTT Ratio Sodium 136 (136-145) mmol/L Potassium 4.6 (3.5-5.1) mmol/L Chloride 106 (98-107) mmol/L Carbon Dioxide 24 (21-32) mmol/L Anion Gap 6.0 (3-11) BUN 65 H (7-18) mg/dl Creatinine 2.62 H (0.6-1.4) mg/dl Est Cr Clr Drug Dosing 28.1 ml/min Est GFR ( Amer) 26.3 ml/min Est GFR (Non-Af Amer) 22.7 ml/min BUN/Creatinine Ratio 24.6 H (10-20) Glucose 73 (70-99) mg/dl Calcium 8.8 (8.5-10.1) mg/dl Magnesium 2.0 (1.8-2.4) mg/dl Total Bilirubin 0.4 (0.2-1) mg/dl AST 29 (15-37) U/L ALT 20 (12-78) U/L Alkaline Phosphatase 40 L (45-117) U/L Troponin I 0.060 H* (0-0.045) ng/ml Total Protein 6.2 L (6.4-8.2) gm/dl Albumin 3.1 L (3.4-5.0) gm/dl Globulin 3.1 (2.5-4.0) gm/dl Albumin/Globulin Ratio 1.0 (0.9-2) Blood Type Antibody Screen Administered Medications Discontinued Medications Ioversol (Optiray 320 125ml) 120 ml IV ONCE ONE Stop: 10/16/20 15:01 Last Admin: 10/16/20 15:01 Dose: 120 ml Documented by: [id number] Imaging Data Radiologist's Impression: Head CT 10/16/20 14:56 CT head/brain wo con CLINICAL HISTORY: Stroke Like Symptoms COMPARISON STUDY: MRI the brain dated 10/03/2020, CT scan dated 10/01/2020 TECHNIQUE: Axial CT of the brain is performed from the vertex to the skull base. IV contrast was not administered for this examination. A dose lowering technique was utilized adhering to the principles of ALARA. CT DOSE: FINDINGS: No intra or extra-axial mass lesions are visualized. There is no CT evidence of acute cortical infarction. There is no evidence of midline shift. There is no acute hemorrhage. No calvarial fractures are visualized. There are patchy white matter hypodensities likely on a small vessel basis. There is no evidence of pathologic ventricular dilatation. There is no evidence of acute sinusitis IMPRESSION: No acute intracranial findings ACT 112: Negative or not required by law. Electronically signed by: Mayito Bolton M.D. 10/16/2020 3:17 PM Head CTA 10/16/20 14:56 CTA ANGIOGRAPHY OF THE HEAD CLINICAL HISTORY: Stroke Like Symptoms COMPARISON STUDY: Head CT October 01, 2020. MRI of the brain October 03, 2020. TECHNIQUE: Helical axial images of the head were obtained following uneventful intravenous administration of 120 cc of Optiray. Sagittal and coronal reconstructions were viewed as well as maximal intensity projections on an independent 3-D workstation. Automated exposure control was utilized for the study. A dose lowering technique was utilized adhering to the principles of A ADRIAN. FINDINGS: Please note that the head CT will reported separately. The bilateral M1, M2, A1 and A2 segments are patent. No central vessel occlusion is noted. There is persistence of the right posterior cerebral artery. There is moderate calcified plaque within the bilateral cavernous carotids without significant stenosis. The left vertebral artery is dominant. There is moderate stenosis of the intracranial portion of the right vertebral artery. Note is made of moderate stenosis of the proximal right posterior cerebral artery. No intracranial aneurysm is identified. No dissection is noted within the intracranial vessels. No acute intracranial hemorrhage, midline shift or mass effect is present. IMPRESSION: 1. No central vessel occlusion. No intracranial aneurysm. 2. Moderate multifocal stenoses within the intracranial vessels, as described above. ACT 112: Negative or not required by law. Electronically signed by: Yosef Still M.D. 10/16/2020 3:34 PM Neck CTA 10/16/20 14:56 CT angio neck with con CLINICAL HISTORY: Stroke Like Symptoms COMPARISON STUDY: No previous studies for comparison. TECHNIQUE: CT angiography was performed from the aortic arch to the skull base. MIP imaging was performed. The patient was scanned in a dynamic helical fashion during intravenous administration of 120 cc of Optiray. A dose lowering te chnique was utilized adhering to the principles of ALARA. CT DOSE: Technique: CT angiogram of the carotid and vertebral arteries was obtained using intravenous contrast and 3-D reconstruction. NASCET criteria was utilized. Findings: There is a multinodular thyroid gland. There are mild to moderate atheromatous changes the level the right carotid bifurcation without evidence for hemodynamically significant stenosis. There are moderate atheromatous changes at the left carotid bifurcation without evidence of a hemodynamically significant stenosis. There are atherosclerotic calcifications involving the origin the right vertebral which limits evaluation for stenosis. There are distal vertebral artery calcifications which result in a 50% diameter narrowing of the distal right vertebral artery. There is no evidence of dissection IMPRESSION: 1. Atheromatous change but no evidence of hemodynamically significant carotid stenosis 2. Probable stenosis involving the origin of the right vertebral artery. Evaluation is limited due to calcified plaque 3. Distal vertebral artery calcifications which results in a 50% diameter narrowing in the distal right vertebral artery. ACT 112: Negative or not required by law. Electronically signed by: Mayito Bolton M.D. 10/16/2020 3:27 PM Discharge Plan Visit Data Chief Complaint: Stroke Alert Stated Complaint: Stroke Alert ED Provider: Bao Fleming Discharge Problem: Brain TIA, Facial droop Forms Stand Alone Forms: [facility] Prescriptions Prescriptions: No Action fenofibrate micronized 67 mg capsule 67 mg PO DAILY Qty: 90 RF: 3 felodipine 10 mg tablet extended release 24 hr 10 mg PO DAILY Qty: 90 RF: 3 lisinopril 40 mg tablet 40 mg PO DAILY Qty: 90 RF: 3 metoprolol tartrate 100 mg tablet 100 mg PO BID Qty: 180 RF: 3 (DME) Se[employer]uch Ultra Blue Test Strip Strip See Dose Instructions .ROUTE .MEDSUPPLY Qty: 100 RF: 6 simvastatin 10 mg tablet 10 mg PO DAILY Qty: 90 RF: 1 solifenacin [Vesicare] 10 mg tablet 10 mg PO DAILY Qty: 30 RF: 2 Toujeo SoloStar U-300 Insulin 300 unit/mL (1.5 mL) insulin pen 30 unit SUBCUT DAILY RF: 0 Eliquis 5 mg tablet 5 mg PO BID Qty: 60 RF: 5 cholecalciferol (vitamin D3) 25 mcg (1,000 unit) capsule 1,000 units PO DAILY Qty: 90 RF: 3 acetaminophen 325 mg Tablet 650 mg PO Q4H PRN (Reason: [place]/fever/pain) Qty: 30 RF: 0 polyethylene glycol 3350 [Miralax] 17 gram Powder In Packet 17 g PO DAILY Qty: 30 RF: 0 isosorbide mononitrate 30 mg Tablet Extended Release 24 Hr 60 mg PO DAILY Qty: 60 RF: 0 hydralazine 25 mg Tablet 25 mg PO BID Qty: 60 RF: 0 aspirin 81 mg Tablet,Delayed Release (Dr/Ec) 81 mg PO QAM Qty: 30 RF: 0 cyanocobalamin (vitamin B-12) 500 mcg Tablet 1,000 mcg PO QAM Qty: 60 RF: 0 tamsulosin 0.4 mg Capsule 0.4 mg PO BID Qty: 60 RF: 0 docusate sodium 100 mg Capsule 100 mg PO BID Qty: 60 RF: 0 gabapentin 100 mg Capsule 100 mg PO TID Qty: 90 RF: 0 finasteride [Proscar] 5 mg Tablet 5 mg PO QAM Qty: 30 RF: 0 Referrals Referrals: Tino Pete DO [Primary Care Provider] -
[~2020-10-16 15:07] MED LIST changes: -ALL300 PO; -ASPI-435 PO; -CINN1CAP2 PO; -ELQ25 PO; -FELO10TA PO; -FENO67CA2 PO; -ISOS30TA3 PO; -LISI40TA PO; -LPR100 PO; -LVMIPEN SC; -MULT-845 PO; -OMEG10007 PO; +OPTIRAY 320 125ml IV ONE; -VITA1TAB4 PO
--- NOTE | 2020-10-16 15:18 | CT Scan Report ---
CT head/brain wo con CLINICAL HISTORY: Stroke Like Symptoms COMPARISON STUDY: MRI the brain dated 10/03/2020, CT scan dated 10/01/2020 TECHNIQUE: Axial CT of the brain is performed from the vertex to the skull base. IV contrast was not administered for this examination. A dose lowering technique was utilized adhering to the principles of ALARA. CT DOSE: FINDINGS: No intra or extra-axial mass lesions are visualized. There is no CT evidence of acute cortical infarc tion. There is no evidence of midline shift. There is no acute hemorrhage. No calvarial fractures ar e visualized. There are patchy white matter hypodensities likely on a small vessel basis. There is no evidence of pathologic ventricular dilatation. There is no evidence of acute sinusitis IMPRESSION: No acute intracranial findings ACT 112: Negative or not required by law. Electronically signed by: Mayito Bolton M.D. 10/16/2020 3:17 PM
--- NOTE | 2020-10-16 15:29 | CT Scan Report ---
CT angio neck with con CLINICAL HISTORY: Stroke Like Symptoms COMPARISON STUDY: No previous studies for comparison. TECHNIQUE: CT angiography was performed from the aortic arch to the skull base. MIP imaging was perfo rmed. The patient was scanned in a dynamic helical fashion during intravenous administration of 120 c c of Optiray. A dose lowering technique was utilized adhering to the principles of ALARA. CT DOSE: Technique: CT angiogram of the carotid and vertebral arteries was obtained using intravenous contrast and 3-D reconstruction. NASCET criteria was utilized. Findings: There is a multinodular thyroid gland. There are mild to moderate atheromatous changes the level the right carotid bifurcation without evide nce for hemodynamically significant stenosis. There are moderate atheromatous changes at the left carotid bifurcation without evidence of a hemodyn amically significant stenosis. There are atherosclerotic calcifications involving the origin the right vertebral which limits evalua tion for stenosis. There are distal vertebral artery calcifications which result in a 50% diameter na rrowing of the distal right vertebral artery. There is no evidence of dissection IMPRESSION: 1. Atheromatous change but no evidence of hemodynamically significant carotid stenosis 2. Probable stenosis involving the origin of the right vertebral artery. Evaluation is limited due to calcified plaque 3. Distal vertebral artery calcifications which results in a 50% diameter narrowing in the distal rig ht vertebral artery. ACT 112: Negative or not required by law. Electronically signed by: Mayito Bolton M.D. 10/16/2020 3:27 PM
[2020-10-16 15:34] LABS: Basophils # (auto) 0.01 K/uL (0-0.2); Basophils % (auto) 0.2 %; Eosinophils # (auto) 0.16 K/uL (0-0.5); Eosinophils % (auto) 3.5 %; Hematocrit (blood only) 29.3 % (42-52); Hemoglobin 9.8 g/dL (14.0-18.0); Immature Granulocytes # (auto) 0.01 K/uL (0.00-0.02); Immature Granulocytes % (auto) 0.2 %; Lymphocytes # (auto) 1.11 K/uL (1.2-3.4); Lymphocytes % (auto) 24.4 %; Mean Corpuscular Hemoglobin 31.3 pg (25-34); Mean Corpuscular Hgb Conc 33.4 g/dL (32-36); Mean Corpuscular Volume 93.6 fL (80-100); Mean Platelet Volume 9.8 fL (7.4-10.4); Monocytes # (auto) 0.33 K/uL (0.11-0.59); Monocytes % (auto) 7.3 %; Neutrophils # (auto) 2.92 K/uL (1.4-6.5); Neutrophils % (auto) 64.4 %; Platelet Count 158 K/uL (130-400); RDW Coefficient of Variation 14.2 % (11.5-14.5); RDW Standard Deviation 48.6 fL (36.4-46.3); Red Blood Count 3.13 M/uL (4.7-6.1); White Blood Count 4.54 K/uL (4.8-10.8)
--- NOTE | 2020-10-16 15:35 | CT Scan Report ---
CTA ANGIOGRAPHY OF THE HEAD CLINICAL HISTORY: Stroke Like Symptoms COMPARISON STUDY: Head CT October 01, 2020. MRI of the brain October 03, 2020. TECHNIQUE: Helical axial images of the head were obtained following uneventful intravenous administr ation of 120 cc of Optiray. Sagittal and coronal reconstructions were viewed as well as maximal inten sity projections on an independent 3-D workstation. Automated exposure control was utilized for the study. A dose lowering technique was utilized adhering to the principles of ALARA. FINDINGS: Please note that the head CT will reported separately. The bilateral M1, M2, A1 and A2 segm ents are patent. No central vessel occlusion is noted. There is persistence of the right metal refiner ior cerebral artery. There is moderate calcified plaque within the bilateral cavernous carotids witho ut significant stenosis. The left vertebral artery is dominant. There is moderate stenosis of the int racranial portion of the right vertebral artery. Note is made of moderate stenosis of the proximal ri ght posterior cerebral artery. No intracranial aneurysm is identified. No dissection is noted within the intracranial vessels. No acute intracranial hemorrhage, midline shift or mass effect is present. IMPRESSION: 1. No central vessel occlusion. No intracranial aneurysm. 2. Moderate multifocal stenoses within the intracranial vessels, as described above. ACT 112: Negative or not required by law. Electronically signed by: Yosef Still M.D. 10/16/2020 3:34 PM
[2020-10-16 15:47] LABS: INR 1.2 (0.9-1.1); Partial Thromboplastin Ratio 1.2; Partial Thromboplastin Time 30.6 Seconds (21.0-31.0); Prothrombin Time 11.6 Seconds (9.0-12.0)
[2020-10-16 15:53] LABS: Albumin Level 3.1 gm/dl (3.4-5.0); BUN Creatinine Ratio 24.6 (10-20); Calcium 8.8 mg/dl (8.5-10.1); Creatinine Clr Calc Pharmacy 28.1 ml/min; Est GFR (African American) 26.3 ml/min; Est GFR (Non-African American) 22.7 ml/min; Potassium 4.6 mmol/L (3.5-5.1)
[2020-10-16 15:58] LABS: Bilirubin,Total 0.4 mg/dl (0.2-1); Globulin 3.1 gm/dl (2.5-4.0); Total Protein 6.2 gm/dl (6.4-8.2); Troponin I 0.06 ng/ml (0-0.045)
--- NOTE | 2020-10-16 17:53 | History & Physical Report ---
Date of Service October 16, 2020 Assessment & Plan (1) Weakness: Plan: Transient episode of slurred speech following discharge from [place] for rehab from prior hospitalization for weakness earlier this month, possibly brain TIA Stroke alert called -- no acute stroke identified Symptoms resolved at current time and would avoid repeating brain MRI (done October 03 of this year) which showed older CVA but nothing acute At that time, patient was to be on high-intensity statin but does not appear this was done --> placed on Lipitor 40mg HS to begin tonight Was also not going to be taking the ASA while on eliquis but discussed importance and continued 81mg ASA daily No need for repeat ECHO -- no CP, SOB. Trop not as elevated as last admission but will trend. 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 Will repeat US Venous Doppler given 6months on eliquis and continued s welling/weakness. No prior insult but did endorse immobility progressive over past several months Checking ESR, CK, UA Cr 2.62 which does appear in his range but slightly up from prior admission -- will provide 1L NSS @80cc/hr A1c, Lipid in AM Will check Lyme given weakness, AV prolongation, almost pancytopenic Pacemaker interrogation PT/oT evaluations Holding gabapentin (new medication since last admission for his neuropathy) Neurology consulted -- no consultation last admission and with vertebral artery stenosis -- appreciate recs Will also obtain CT Lumbar spine given fecal incontinence in patient with hx spinal stenosis. Consult ortho pending results Labs in AM (2) Brain TIA: Plan: Suspected -- see above ASA 81mg daily, added lipitor 40mg and can increase to 80mg if needed (prior reports simvastatin 10mg) (3) Facial droop: Plan: Reported -- resolved on examination (4) Anemia of chronic disease: Plan: Hgb 9.8 on admission -- denied hematochezia/melena Will check fecal occult for completeness Also with new hx B12 deficiency and on supplementation. Will check B12/folate/iron studies in AM and supplement if needed consult GI if focb + CBC in AM (5) Hypertriglyceridemia: Plan: Continue home meds Placed on lipitor as above (6) Status post placement of cardiac pacemaker: Plan: pacemaker interrogation ordered (7) History of CVA (cerebrovascular accident): Plan: noted old CVA last admission ASA, statin as above Will re-convene with Neurology in AM Unlikely CVA and no need to obtain brain MRI at this time unless cognition changes/recurrance symptoms (8) B12 deficiency: Plan: Continue supplementation Check level in AM (9) Generalized weakness: Plan: As above (10) Deep vein thrombosis (DVT) of left lower extremity: Plan: Eliquis Repeat Venous Doppler May need to consider discussion with anticoagulation clinic given 6 months of therapy if still present. Does not appear any hypercoagulability panel/work-up obtained at time of diagnosis but patient had been fairly immobile. 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 Per patient and brother, he was doing well with therapy this morning and then had a small accident BM in his pants (unaware he needed to have BM but reportedly hadn't moved his bowels in over a week prior). He does endorse low back pain and reports spinal stenosis history that pain is typically improved with sitting. He had been ambulatory without assistive device besides a cane at times prior to admission several weeks ago and is now requiring a walker with ambulation. Previous admission requiring fleets enemas for relief. Brother states that patient this morning he picked him up and then felt like he was going to pass out and had some slurred speech. New medications last admission -- gabapentin (discussed we will hold this), ASA 81mg (he states he has at home but has not been on while on Eliquis but did get while in rehab). No bleeding reported. Statin was also increased. Speech has cleared since arrival to ER and stroke work-up negative. Weakness in L leg > R leg, and is on side of prior DVT which he states he had repeat US and showed improvement. CT Head without acute finding. CTA Head/Neck with moderate multifocal stenosis within intracranial vessels -- Atheromatous change but no evidence of hemodynamically significant carotid stenosis. Probable stenosis involving the origin of the right vertebral artery. Evaluation is limited due to calcified plaque. Distal vertebral artery calcifications which results in a 50% diameter narrowing in the distal right vertebral artery. Telemetry -- prolonged AV conduction without ST elevation/depression. Trop 0.06 but less than prior admission. Denied fever, chills, chest pain ,shortness of breath, palpitations, blurred vision, nausea, vomiting, melena, hematochezia, dysuria. He does note ability to hold more urine with less frequency but has had frequency chronically, following with Dr Benoit locally. Allergies Allergy/AdvReac Type Severity Reaction Status Date / Time No Known Allergies Allergy ` Verified 10/16/20 17:10 Home Medications Medication Instructions Recorded Confirmed Type cholecalciferol (vitamin D3) 25 1,000 units PO DAILY #90 cap 09/09/19 10/16/20 Rx mcg (1,000 unit) capsule fenofibrate micronized 67 mg 67 mg PO DAILY #90 cap 12/05/19 10/16/20 Rx capsule felodipine 10 mg tablet,extended 10 mg PO DAILY #90 tab 02/04/20 10/16/20 Rx release 24 hr lisinopril 40 mg tablet 40 mg PO DAILY #90 tab 02/10/20 10/16/20 Rx metoprolol tartrate 100 mg tablet 100 mg PO BID #180 tab 05/11/20 10/16/20 Rx blood sugar diagnostic (OneTouch #100 ea 06/29/20 09/14/20 Rx Ultra Blue Test Strip) apixaban 5 mg tablet (Eliquis) 5 mg PO BID #60 tab 07/13/20 10/16/20 Rx insulin glargine U-300 conc 300 30 unit SUBCUT DAILY ml 07/13/20 10/16/20 History unit/mL (1.5 mL) subcutaneous pen (Touguidoo SoloStar U-300 Insulin) simvastatin 10 mg tablet 10 mg PO DAILY #90 tab 08/18/20 10/16/20 Rx solifenacin 10 mg tablet (Vesicare) 10 mg PO DAILY #30 tab 08/19/20 10/16/20 Rx acetaminophen 325 mg tablet 650 mg PO Q4H PRN #30 tab 10/09/20 10/16/20 Rx cyanocobalamin (vitamin B-12) 500 1,000 mcg PO QAM #60 tab 10/09/20 10/16/20 Rx mcg tablet docusate sodium 100 mg capsule 100 mg PO BID #60 cap 10/09/20 10/16/20 Rx finasteride 5 mg tablet (Proscar) 5 mg PO QAM #30 tab 10/09/20 10/16/20 Rx gabapentin 100 mg capsule 100 mg PO TID #90 cap 10/09/20 10/16/20 Rx hydralazine 25 mg tablet 25 mg PO BID #60 tab 10/09/20 10/16/20 Rx isosorbide mononitrate 30 mg 60 mg PO DAILY #60 tab 10/09/20 10/16/20 Rx tablet,extended release 24 hr polyethylene glycol 3350 17 gram 17 g PO DAILY #30 ea 10/09/20 10/16/20 Rx oral powder packet (Miralax) tamsulosin 0.4 mg capsule 0.4 mg PO BID #60 cap 10/09/20 10/16/20 Rx Past Med/Surg History Medical History Anemia of chronic disease BPH with obstruction/lower urinary tract symptoms CKD (chronic kidney disease) Deep vein thrombosis (DVT) of left lower extremity Diabetes Elevated troponin History of CVA (cerebrovascular accident) Hypertension Hypertriglyceridemia Hypertrophic obstructive cardiomyopathy (HOCM) Low back pain Mobitz (type) II atrioventricular block Proteinuria Sinus node dysfunction Skin carcinoma Spinal stenosis Subclavian vein thromboembolism, acute Syncope and collapse Surgical History H/O arthroscopy of knee History of cataract surgery Status post placement of cardiac pacemaker Family History Mother Ovarian cancer Diabetes Father Diabetes Unknown Coronary heart disease Denies family history of Prostate cancer Myocardial infarction Breast cancer Colorectal cancer Social History Smoking Status: Unknown if ever smoked Second Hand Exposure: No; Hx Alcohol Use: No Hx Substance Use: No Preferred Language: Eritrean Communication Ability: Effective Wind Field Manager Required: No Beliefs That Will Affect Care: None marital status: / Current Living Situation: Alone current occupational status: retired Feels Safe at Home: Yes Childhood Exposure to Second-Hand Smoke: No caffeine: Yes Dental Care, Regularly: Yes Physical Activity Frequency: 1-2 Times per Week Seatbelt Use: always Sunscreen Use: No Assistive Devices: Walker Review of Systems Review of Systems: All systems reviewed & are unremarkable except as noted in HPI & below Physical Exam Constitutional: WD/WN, vitals as above NAD, obese Eyes: + anicteric sclerae and PERRL; no anisocoria and no nystagmus Neck: trachea midline; no tracheal deviation Respiratory: normal respiratory effort, lungs clear to auscultation Cardiovascular: Rate/Rhythm: regular rhythm and + bradycardic Heart Sounds: normal S1 and normal S2; no murmur Extremities: + edema (L>R, pitting) Gastrointestinal (Abdomen): normal bowel sounds, soft, nontender, no hepatosplenomegaly Musculoskeletal: 4/5 strength LLE, 5/5 RLE decreased sensation to light touch [id number] normal, difficulty with heel-colon testing Skin: warm, dry Neurologic: patellar DTR's 2+ bilat, sensation intact (with exception of light touch) and PERRL, EOMI, accommodation nl, no face palsy, no dysarthria Psychiatric: A+Ox3, euthymic affect Genitourinary: no fung Lymphatic: no cervical or axillary lymphadenopathy Results & Data Results & Data ([facility]) Vital Signs (Past 12 Hours) Vital Signs Temp Pulse Pulse Resp BP Pulse Ox 10/16/20 16:35 55 L 20 118/64 94 10/16/20 16:07 55 L 24 106/60 97 10/16/20 15:28 36.8 C 53 L 53 L 20 131/63 96 Laboratory Results 10/16/20 10/16/20 10/16/20 Range/Units 17:05 17:05 15:21 WBC (4.8-10.8) K/uL RBC (4.7-6.1) M/uL Hgb (14.0-18.0) g/dL Hct (42-52) % MCV (80-100) fL MCH (25-34) pg MCHC (32-36) g/dL RDW Std Deviation (36.4-46.3) fL RDW Coeff of Nona (11.5-14.5) % Plt Count (130-400) K/uL MPV (7.4-10.4) fL Immature Gran % (Auto) % Neut % (Auto) % Lymph % (Auto) % [place] % (Auto) % Eos % (Auto) % Baso % (Auto) % Neut # (Auto) (1.4-6.5) K/uL Lymph # (Auto) (1.2-3.4) K/uL [place] # (Auto) (0.11-0.59) K/uL Eos # (Auto) (0-0.5) K/uL Baso # (Auto) (0-0.2) K/uL Immature Gran # (Auto) (0.00-0.02) K/uL PT (9.0-12.0) Seconds INR (0.9-1.1) APTT (21.0-31.0) Seconds PTT Ratio Sodium (136-145) mmol/L Potassium (3.5-5.1) mmol/L Chloride (98-107) mmol/L Carbon Dioxide (21-32) mmol/L Anion Gap (3-11) BUN (7-18) mg/dl Creatinine (0.6-1.4) mg/dl Est Cr Clr Drug Dosing ml/min Est GFR ( Amer) ml/min Est GFR (Non-Af Amer) ml/min BUN/Creatinine Ratio (10-20) Glucose (70-99) mg/dl Calcium (8.5-10.1) mg/dl Magnesium (1.8-2.4) mg/dl Total Bilirubin (0.2-1) mg/dl AST (15-37) U/L ALT (12-78) U/L Alkaline Phosphatase (45-117) U/L Troponin I (0-0.045) ng/ml Total Protein (6.4-8.2) gm/dl Albumin (3.4-5.0) gm/dl Globulin (2.5-4.0) gm/dl Albumin/Globulin Ratio (0.9-2) Lyme Disease IgG Ab Pending Lyme Disease IgM Ab Pending COVID-19 Eval Order Covid19 at [facility] SARS-CoV-2 (PCR) NEGATIVE (Negative) Blood Type Antibody Screen 07/16/21 07/16/21 07/16/21 Range/Units 15:20 15:20 15:20 WBC 4.54 L (4.8-10.8) K/uL RBC 3.13 L (4.7-6.1) M/uL Hgb 9.8 L (14.0-18.0) g/dL Hct 29.3 L (42-52) % MCV 93.6 (80-100) fL MCH 31.3 (25-34) pg MCHC 33.4 (32-36) g/dL RDW Std Deviation 48.6 H (36.4-46.3) fL RDW Coeff of Nona 14.2 (11.5-14.5) % Plt Count 158 (130-400) K/uL MPV 9.8 (7.4-10.4) fL Immature Gran % (Auto) 0.2 % Neut % (Auto) 64.4 % Lymph % (Auto) 24.4 % [place] % (Auto) 7.3 % Eos % (Auto) 3.5 % Baso % (Auto) 0.2 % Neut # (Auto) 2.92 (1.4-6.5) K/uL Lymph # (Auto) 1.11 L (1.2-3.4) K/uL [place] # (Auto) 0.33 (0.11-0.59) K/uL Eos # (Auto) 0.16 (0-0.5) K/uL Baso # (Auto) 0.01 (0-0.2) K/uL Immature Gran # (Auto) 0.01 (0.00-0.02) K/uL PT 11.6 (9.0-12.0) Seconds INR 1.2 H (0.9-1.1) APTT 30.6 (21.0-31.0) Seconds PTT Ratio 1.2 Sodium 136 (136-145) mmol/L Potassium 4.6 (3.5-5.1) mmol/L Chloride 106 (98-107) mmol/L Carbon Dioxide 24 (21-32) mmol/L Anion Gap 6.0 (3-11) BUN 65 H (7-18) mg/dl Creatinine 2.62 H (0.6-1.4) mg/dl Est Cr Clr Drug Dosing 28.1 ml/min Est GFR ( Amer) 26.3 ml/min Est GFR (Non-Af Amer) 22.7 ml/min BUN/Creatinine Ratio 24.6 H (10-20) Glucose 73 (70-99) mg/dl Calcium 8.8 (8.5-10.1) mg/dl Magnesium 2.0 (1.8-2.4) mg/dl Total Bilirubin 0.4 (0.2-1) mg/dl AST 29 (15-37) U/L ALT 20 (12-78) U/L Alkaline Phosphatase 40 L (45-117) U/L Troponin I 0.060 H* (0-0.045) ng/ml Total Protein 6.2 L (6.4-8.2) gm/dl Albumin 3.1 L (3.4-5.0) gm/dl Globulin 3.1 (2.5-4.0) gm/dl Albumin/Globulin Ratio 1.0 (0.9-2) Lyme Disease IgG Ab Lyme Disease IgM Ab COVID-19 Eval Order SARS-CoV-2 (PCR) (Negative) Blood Type Antibody Screen 10/16/20 Range/Units 15:20 WBC (4.8-10.8) K/uL RBC (4.7-6.1) M/uL Hgb (14.0-18.0) g/dL Hct (42-52) % MCV (80-100) fL MCH (25-34) pg MCHC (32-36) g/dL RDW Std Deviation (36.4-46.3) fL RDW Coeff of Nona (11.5-14.5) % Plt Count (130-400) K/uL MPV (7.4-10.4) fL Immature Gran % (Auto) % Neut % (Auto) % Lymph % (Auto) % [place] % (Auto) % Eos % (Auto) % Baso % (Auto) % Neut # (Auto) (1.4-6.5) K/uL Lymph # (Auto) (1.2-3.4) K/uL [place] # (Auto) (0.11-0.59) K/uL Eos # (Auto) (0-0.5) K/uL Baso # (Auto) (0-0.2) K/uL Immature Gran # (Auto) (0.00-0.02) K/uL PT (9.0-12.0) Seconds INR (0.9-1.1) APTT (21.0-31.0) Seconds PTT Ratio Sodium (136-145) mmol/L Potassium (3.5-5.1) mmol/L Chloride (98-107) mmol/L Carbon Dioxide (21-32) mmol/L Anion Gap (3-11) BUN (7-18) mg/dl Creatinine (0.6-1.4) mg/dl Est Cr Clr Drug Dosing ml/min Est GFR ( Amer) ml/min Est GFR (Non-Af Amer) ml/min BUN/Creatinine Ratio (10-20) Glucose (70-99) mg/dl Calcium (8.5-10.1) mg/dl Magnesium (1.8-2.4) mg/dl Total Bilirubin (0.2-1) mg/dl AST (15-37) U/L ALT (12-78) U/L Alkaline Phosphatase (45-117) U/L Troponin I (0-0.045) ng/ml Total Protein (6.4-8.2) gm/dl Albumin (3.4-5.0) gm/dl Globulin (2.5-4.0) gm/dl Albumin/Globulin Ratio (0.9-2) Lyme Disease IgG Ab Lyme Disease IgM Ab COVID-19 Eval Order SARS-CoV-2 (PCR) (Negative) Blood Type O Positive Antibody Screen NEGATIVE Diagnostic Findings Head CT 10/16/20 14:56 CT head/brain wo con CLINICAL HISTORY: Stroke Like Symptoms COMPARISON STUDY: MRI the brain dated 10/03/2020, CT scan dated 10/01/2020 TECHNIQUE: Axial CT of the brain is performed from the vertex to the skull base. IV contrast was not administered for this examination. A dose lowering technique was utilized adhering to the principles of ALARA. CT DOSE: FINDINGS: No intra or extra-axial mass lesions are visualized. There is no CT evidence of acute cortical infarction. There is no evidence of midline shift. There is no acute hemorrhage. No calvarial fractures are visualized. There are patchy white matter hypodensities likely on a small vessel basis. There is no evidence of pathologic ventricular dilatation. There is no evidence of acute sinusitis IMPRESSION: No acute intracranial findings ACT 112: Negative or not required by law. Electronically signed by: Mayito Bolton M.D. 10/16/2020 3:17 PM Head CTA 10/16/20 14:56 CTA ANGIOGRAPHY OF THE HEAD CLINICAL HISTORY: Stroke Like Symptoms COMPARISON STUDY: Head CT October 01, 2020. MRI of the brain October 03, 2020. TECHNIQUE: Helical axial images of the head were obtained following uneventful intravenous administration of 120 cc of Optiray. Sagittal and coronal reconstructions were viewed as well as maximal intensity projections on an independent 3-D workstation. Automated exposure control was utilized for the study. A dose lowering technique was utilized adhering to the principles of ALARA. FINDINGS: Please note that the head CT will reported separately. The bilateral M1, M2, A1 and A2 segments are patent. No central vessel occlusion is noted. There is persistence of the right posterior cerebral artery. There is moderate calcified plaque within the bilateral cavernous carotids without significant stenosis. The left vertebral artery is dominant. There is moderate stenosis of the intracranial portion of the right vertebral artery. Note is made of moderate stenosis of the proximal right posterior cerebral artery. No intracranial aneurysm is identified. No dissection is noted within the intracranial vessels. No acute intracranial hemorrhage, midline shift or mass effect is present. IMPRESSION: 1. No central vessel occlusion. No intracranial aneurysm. 2. Moderate multifocal stenoses within the intracranial vessels, as described above. ACT 112: Negative or not required by law. Electronically signed by: Yosef Still M.D. 10/16/2020 3:34 PM Neck CTA 10/16/20 14:56 CT angio neck with con CLINICAL HISTORY: Stroke Like Symptoms COMPARISON STUDY: No previous studies for comparison. TECHNIQUE: CT angiography was performed from the aortic arch to the skull base. MIP imaging was performed. The patient was scanned in a dynamic helical fashion during intravenous administration of 120 cc of Optiray. A dose lowering technique was utilized adhering to the principles of ALARA. CT DOSE: Technique: CT angiogram of the carotid and vertebral arteries was obtained using intravenous contrast and 3-D reconstruction. NASCET criteria was utilized. Findings: There is a multinodular thyroid gland. There are mild to moderate atheromatous changes the level the right carotid bifurcation without evidence for hemodynamically significant stenosis. There are moderate atheromatous changes at the left carotid bifurcation without evidence of a hemodynamically significant stenosis. There are atherosclerotic calcifications involving the origin the right vertebral which limits evaluation for stenosis. There are distal vertebral artery calcifications which result in a 50% diameter narrowing of the distal right vertebral artery. There is no evidence of dissection IMPRESSION: 1. Atheromatous change but no evidence of hemodynamically significant carotid stenosis 2. Probable stenosis involving the origin of the right vertebral artery. Evaluation is limited due to calcified plaque 3. Distal vertebral artery calcifications which results in a 50% diameter narrowing in the distal right vertebral artery. ACT 112: Negative or not required by law. Electronically signed by: Mayito Bolton M.D. 10/16/2020 3:27 PM ECG Additional Comments: Atrial paced with prolonged AV condusion. RBBB. Compared to October 03, electronic atrial pacemaker replaced sinus rhythm Supervising Physician Co-Signing Physician Notes Patient was seen and examined independently I discussed the case with James BAUTISTA I reviewed pertinent past medical social family history and also the plan of care and agree with the plan of care. Patient states he is back to his normal self he cannot recall the events why his brother called the ambulance he did recall events of being incontinent of stool. Patient is most recently discharged after a stroke evaluation. She has some skepticism of his medications. Patient is nonfocal he is slightly demented perhaps again a complete stroke evaluation during his hospital stay Any exceptions will be noted below PG Care Time/CCT Total # of Minutes Spent Total Time Spent with Patient: Total time spent is greater than 50% in coordination of care (as documented) at patient's floor/unit and/or counseling patient: Coding Level of Care Code INT OBSERVATION CARE 70M LVL 3 Diagnoses Brain TIA G45.9 Facial droop R29.810 Anemia of chronic disease D63.8 Hypertriglyceridemia E78.1 Status post placement of cardiac pacemaker Z95.0 History of CVA (cerebrovascular accident) Z86.73 B12 deficiency E53.8 Generalized weakness R53.1 Deep vein thrombosis (DVT) of left lower extremity I82.402 Urinary incontinence R32 Secondary diabetes mellitus with stage 3 chronic kidney disease and hypertension E13.22; I12.9; N18.3 Weakness R53.1
[2020-10-16 19:11] LABS: Lyme Ab IgG w/WB Rflx Negative (Negative); Lyme Ab IgM w/WB Rflx Negative (Negative)
[2020-10-16] MEDS ORDERED: GLUCAGON FOR INJ 1 MG VIAL SQ PRN (20:35)
[2020-10-16] MEDS ORDERED: ALUMINUM/MAGNESIUM SUSP 30 ML UDC PO PRN (20:35)
[2020-10-16] MEDS ORDERED: ONDANSETRON INJ 2 MG/ML 2 ML VIAL IV PRN (20:35)
[2020-10-16] MEDS ORDERED: ACETAMINOPHEN 325 MG TAB PO PRN (20:35)
[2020-10-16] MEDS ORDERED: NITROGLYCERIN SL 0.4 MG/TAB TAB SL PRN (20:35)
[2020-10-16] MEDS ORDERED: GLUCOSE 40% GEL 15 GM TUBE PO PRN (20:35)
[2020-10-16] MEDS ORDERED: DEXTROSE 50% 50 ML SYRINGE IV PRN (20:35)
[2020-10-16] MEDS ORDERED: GLUCOSE 10 TABS/TUBE PO PRN (20:35)
[2020-10-16] MEDS ORDERED: CARBOHYDRATES FOR HYPOGLYCEMIA PO PRN (20:35)
[2020-10-16] MEDS ORDERED: SOD PHOSPHATE/SOD BIPHOSPHATE ENEMA 132 ML BTL PR PRN (20:35)
[2020-10-16] MEDS ORDERED: MAGNESIUM HYDROXIDE SUSP 30 ML UDC PO PRN (20:35)
[2020-10-16 21:32] LABS: Appearance Urine Clear (Clear); Bacteria Urine Automated Negative (Negative); Bilirubin Urine Negative (Negative); Blood Urine Negative (Negative); Cast Urine Automated 0 /lpf (0-5); Color Urine Yellow; Epithelial Cell Urine Auto 0-5 /lpf (0-5); Glucose Urine UA Negative (Negative); Ketones Urine Negative (Negative); Leukocyte Esterase Urine Negative (Negative); Nitrite Urine Negative (Negative); RBC Urine Automated 0-4 /hpf (0-4); Specific Gravity Urine 1.027 (1.000-1.030); Urobilinogen Urine Negative (Negative); pH Urine 7.5 (4.5-7.5)
[2020-10-16 21:35] LABS: Protein Urine Trace (Negative)
--- NOTE | 2020-10-16 22:17 | Ultrasound Report ---
LEFT LOWER EXTREMITY VENOUS DOPPLER CLINICAL HISTORY: f/u DVT COMPARISON STUDY: Bilateral lower extremity venous Doppler ultrasound April 17, 2020. TECHNIQUE: Sonography of the deep venous system of the left lower extremity was performed. Compressi on and augmentation were evaluated. FINDINGS: The common femoral and superficial femoral veins are patent. There is nonocclusive thrombus within the left popliteal, posterior tibial and peroneal veins. Thrombus was shown within these vess els on ultrasound of April 17, 2020. The extent of thrombus is unchanged or slightly decreased sinc e prior exam. IMPRESSION: Nonocclusive deep venous thrombus within the left popliteal, posterior tibial and peronea l veins which is either unchanged or slightly decreased since prior ultrasound April 17, 2020. This suggests chronic thrombus. ACT 112: Negative or not required by law. Electronically signed by: Yosef Still M.D. 10/16/2020 10:15 PM
[2020-10-16] MEDS: hydrALAZINE HCL 25 MG TAB PO SCH (22:20)
[2020-10-16] MEDS: ATORVASTATIN 40 MG TAB PO SCH (22:21)
[2020-10-16] MEDS: METOPROLOL TARTRATE 100 MG TAB PO SCH (22:21)
[2020-10-16] MEDS: TAMSULOSIN HCL 0.4 MG CAP PO SCH (22:21)
[2020-10-16] MEDS: DOCUSATE SODIUM 100 MG CAP PO SCH (22:21)
[2020-10-16] MEDS: SODIUM CHLORIDE 0.9% 1000ML 1,000 ML IV SCH (22:22)
[2020-10-16] MEDS: INSULIN ASPART 100 UNITS/ML 3 ML PEN SC SCH (22:22)
[2020-10-16] MEDS: APIXABAN 5 MG TABLET PO SCH (22:22)
--- NOTE | 2020-10-16 22:27 | CT Scan Report ---
CT lumbar spine wo con CLINICAL HISTORY: back pain, stroke alert, bowel incontinence COMPARISON STUDY: Lumbar spine MRI September 04, 2014. TECHNIQUE: Axial images of the lumbar spine were obtained without IV contrast. Sagittal and coronal r econstructions were viewed. Automated exposure control was utilized for the study. A dose lowering t echnique was utilized adhering to the principles of ALARA. FINDINGS: For purposes of numbering on this exam, the L5-S1 disc space is assigned to axial image 303 of 375. There is 8 mm of anterolisthesis of L4 and L5. This has mildly increased since MRI of September. No acute lumbar spine fracture is noted. There are no suspicious osseous lesions. Vacuum disc phenomenon is noted at each level. There is severe disc space narrowing at L5-S1. Moderate disc spac e narrowing is noted at multiple additional levels. There is severe multilevel facet arthrosis. Contr ast within the collecting systems, ureters and bladder is from recent contrast-enhanced CT. The urina ry bladder is distended. This is partially imaged on this exam. Central canal and neural foramen are suboptimally assessed by CT. However, there is severe central canal stenosis at L4-L5 which has progr essed since previous MRI. In addition, there is probable severe central canal stenosis at L3-L4. Mild to moderate central canal stenosis at L2-L3 is noted. Suspected severe multilevel neural foraminal s tenosis. IMPRESSION: 1. No acute lumbar spine fracture or subluxation. 2. Severe multilevel degenerative changes within the lumbar spine. Suboptimal evaluation of the centr al canal and neural foramen given CT technique. However, severe central stenosis at L4-L5 and probabl e severe central canal stenosis at L3-L4. There are multilevel neural foraminal stenosis. 3. Grade one anterolisthesis of L4 and L5 due to facet arthrosis. 4. Distended bladder. ACT 112: Negative or not required by law. Electronically signed by: Yosef Still M.D. 10/16/2020 10:26 PM
--- NOTE | 2020-10-17 07:42 | Hospitalist Progress Note ---
Date of Service October 17, 2020 Assessment & Plan (1) Weakness: Plan: Transient episode of slurred speech following discharge from [facility] for rehab from prior hospitalization for weakness earlier this month, possibly brain TIA Stroke alert called -- no acute stroke identified Symptoms resolved at current time and would avoid repeating brain MRI (done October 03 of this year) which showed older CVA but nothing acute At that time, patient was to be on high-intensity statin but does not appear this was done --> placed on Lipitor 40mg HS and would continue this at discharge Was also not going to be taking the ASA while on Eliquis but discussed importance and continued 81mg ASA daily no CP, SOB. Trop not as elevated as last admission but will trend. 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 Can have follow up if progresses/per patient wishes Will have PT/OT evals -- patient would like [facility] if possible at d/c. CM following IVF for dehydration -- to conitnue through today and then will d/c Glucose low at 45 this morning -> per patient he had previously been on 51u Toujeo and took himself down to 30 u by himself for frequent hypoglycemia. A1c 5.8 on AM labs --> Consulted pharmacy and would anticipate lowered needs. Will continue to monitor. Held AM dose this morning Holding gabapentin (new medication since last admission for his neuropathy) Holding off on repeat brain MRI given no focal deficits, but would consider if symptoms recur but suspect he may have been hypoglycemic/micturition syncope/etc prior to admission/presentation Follow labs in AM (2) Neurogenic claudication due to lumbar spinal stenosis: Plan: Severe multilevel degenerative changes within the lumbar spine. Suboptimal evaluation of the central canal and neural foramen given CT technique. However, severe central stenosis at L4-L5 and probable severe central canal stenosis at L3-L4. There are multilevel neural foraminal stenosis. Dr Sanchez on consult -- see above PT/OT (3) Bladder outlet obstruction: Plan: Similar episode last admission Cr 2.6 on admission, improved to 2.42 but with frequency. No infxn Renal US c/w bladder outlet obstruction and noted PVR ~400cc Patient voided 600cc last night and then only 200cc today so far. 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 Had been on 51u in the past (given at night) and he backed himself down to 30U due to frequent hypoglycemia A1c only 5.8 Pharmacy consulted [facility] while inpatient Suspect decreased needs at discharge Continue to monitor (5) Brain TIA: Plan: Suspected on admission, but resolution of symptoms without recurrance-- see above ASA 81mg daily, added Lipitor 40mg would continue this at discharge (6) Facial droop: Plan: Reported DREDGE HAND-- resolved on examination (7) Anemia of chronic disease: Plan: Normocytic Hgb 9.8 on admission, repeat 10.2 -- denied hematochezia/melena Will check fecal occult for completeness Also with new hx B12 deficiency and on supplementation -- B12 level actually elevated Iron 81, TIBC 253, transferrin 222, trans % sat 26, ferritin 347 consult GI if focb + CBC in AM (8) Hypertriglyceridemia: Plan: Continue home meds Placed on lipitor as above (9) Status post placement of cardiac pacemaker: Plan: pacemaker interrogation ordered as above (10) History of CVA (cerebrovascular accident): Plan: noted old CVA last admission ASA, statin as above Will re-convene with Neurology in AM -- no need for formal consult/repeat brain MRI at this time Unlikely CVA and no need to obtain brain MRI at this time unless cognition changes/recurrence symptoms (11) B12 deficiency: Plan: Continue supplementation Check level in AM -- elevated as above Weakness likely from back (12) Deep vein thrombosis (DVT) of left lower extremity: Plan: Eliquis Repeat Venous Doppler -- chronic non-occlusive Continue Eliquis indefinitely (13) Urinary incontinence: Plan: Solifenacin, tamsulosin continued DVT Prophylaxis Eliquis Dispo: changed to full admit, continued inpatient stay likely through weekend Patient ok with CPR, medications but NO VENTILATOR PT/OT evals pending for possible rehab/SNF -- patient and brother agreeable to [facility] if possible. CM following (14) Elevated troponin: Plan: Trop 0.06 on admission --> increased to 0.117 (no CP/sob reported), trending down on repeat but still 0.107 Had elevations last admission up to 0.198 as wel and was 0.156 prior to discharge ECHO pending as above given hx SVM/LVOT Admission and Anticipated Discharge Date Admission Date: October 16, 2020 Subjective Patient evaluated this morning. Feeling well. Went down for renal US and sitting up in chair after (more comfortable). Discussed outlet obstruction and recs for fung catheter. He did not like this last admission and would like to hold off for now until seen by Urology (follows with Kaycee). Pain controlled at rest and weakness increased with standing/walking. Ortho eval this morning -- agreed a lot of symptoms from back but both wanting to hold off on surgery at this time and we will get PT/OT evals but he may need to discuss/consider in the future given persistent symptoms and now normal B12. Also discussed low blood sugars -- he states he used to be on 51 units of Toujeo (taken at night) and had backed himself down to 30 units as he was getting frequent hypoglycemia. Discussed low again this morning and may need further reduction but will monitor blood sugar sticks. He notes he has typically been in the 80-90s on AM checks at home. No fever, chills, chest pain, increased shortness of breath, abdominal pain, na usea or vomiting. Questions/concerns addressed at this time. Will update brother this afternoon regarding imaging and plan moving forward at patient request. Review of Systems Review of Systems: All systems reviewed & are unremarkable except as noted in HPI & below Physical Exam Constitutional: WD/WN, vitals as above Eyes: + anicteric sclerae and PERRL; no anisocoria and no nystagmus Neck: trachea midline; no tracheal deviation Respiratory: normal respiratory effort, lungs clear to auscultation Cardiovascular: Rate/Rhythm: regular rhythm and + bradycardic Heart Sounds: normal S1 and normal S2; no murmur Extremities: + edema (L>R, pitting) Chest (Breasts): Additional Comments: pacemaker Gastrointestinal (Abdomen): normal bowel sounds, soft, nontender, no hepatosplenomegaly Musculoskeletal: 4/5 b/l LE strength L weaker than R 5/5 UE b/l NVI except to light touch pulses palpable but weak on the left pt, dp Neurologic: patellar DTR's 2+ bilat, sensation intact (with exception of light touch) and PERRL, EOMI, accommodation nl, no face palsy, no dysarthria Psychiatric: A+Ox3, euthymic affect Lymphatic: no cervical or axillary lymphadenopathy Results & Data Results & Data ([facility]) Vital Signs (Past 12 Hours) Vital Signs Temp Pulse Pulse Resp BP Pulse Ox 10/17/20 07:34 54 L 10/17/20 03:47 36.6 C 16 106/66 97 10/16/20 23:21 36.4 C L 66 18 115/60 98 10/16/20 23:00 68 10/16/20 20:35 36.4 C L 67 18 175/81 H 99 Laboratory Results 10/17/20 10/17/20 10/17/20 Range/Units 12:53 12:00 08:44 WBC (4.8-10.8) K/uL RBC (4.7-6.1) M/uL Hgb (14.0-18.0) g/dL Hct (42-52) % MCV (80-100) fL MCH (25-34) pg MCHC (32-36) g/dL RDW Std Deviation (36.4-46.3) fL RDW Coeff of Nona (11.5-14.5) % Plt Count (130-400) K/uL MPV (7.4-10.4) fL ESR (0-20) mm/hr PT (9.0-12.0) Seconds INR (0.9-1.1) APTT (21.0-31.0) Seconds PTT Ratio Sodium (136-145) mmol/L Potassium (3.5-5.1) mmol/L Chloride (98-107) mmol/L Carbon Dioxide (21-32) mmol/L Anion Gap (3-11) BUN (7-18) mg/dl Creatinine (0.6-1.4) mg/dl Est Cr Clr Drug Dosing ml/min Est GFR ( Amer) ml/min Est GFR (Non-Af Amer) ml/min BUN/Creatinine Ratio (10-20) Glucose (70-99) mg/dl POC Glucose 116 H 136 H (70-99) mg/dl Calcium (8.5-10.1) mg/dl Magnesium (1.8-2.4) mg/dl Iron (35-175) mcg/dl TIBC (250-450) mcg/dl Transferrin (200-360) mg/dl Transferrin % Sat (20-50) % Ferritin (8-388) ng/ml Total Bilirubin (0.2-1) mg/dl AST (15-37) U/L ALT (12-78) U/L Alkaline Phosphatase (45-117) U/L Total Creatine Kinase (39-308) U/L Troponin I 0.107 H* (0-0.045) ng/ml Total Protein (6.4-8.2) gm/dl Albumin (3.4-5.0) gm/dl Globulin (2.5-4.0) gm/dl Albumin/Globulin Ratio (0.9-2) Vitamin B12 (193-986) pg/ml Folate (>5.38) ng/ml Urine Color Urine Appearance (Clear) Urine pH (4.5-7.5) Ur Specific Denton (1.000-1.030) Urine Protein (Negative) Urine Glucose (UA) (Negative) Urine Ketones (Negative) Urine Blood (Negative) Urine Nitrite (Negative) Urine Bilirubin (Negative) Urine Urobilinogen (Negative) Ur Leukocyte Esterase (Negative) Urine WBC (Auto) (0-5) /hpf Urine RBC (Auto) (0-4) /hpf U Hyaline Cast (Auto) (0-5) /lpf U Epithel Cells (Auto) (0-5) /lpf Urine Bacteria (Auto) (Negative) Lyme Disease IgG Ab (Negative) Lyme Disease IgM Ab (Negative) COVID-19 Eval Order SARS-CoV-2 (PCR) (Negative) Blood Type Antibody Screen 10/17/20 10/17/20 10/17/20 Range/Units 08:20 07:48 07:46 WBC (4.8-10.8) K/uL RBC (4.7-6.1) M/uL Hgb (14.0-18.0) g/dL Hct (42-52) % MCV (80-100) fL MCH (25-34) pg MCHC (32-36) g/dL RDW Std Deviation (36.4-46.3) fL RDW Coeff of Nona (11.5-14.5) % Plt Count (130-400) K/uL MPV (7.4-10.4) fL ESR (0-20) mm/hr PT (9.0-12.0) Seconds INR (0.9-1.1) APTT (21.0-31.0) Seconds PTT Ratio Sodium (136-145) mmol/L Potassium (3.5-5.1) mmol/L Chloride (98-107) mmol/L Carbon Dioxide (21-32) mmol/L Anion Gap (3-11) BUN (7-18) mg/dl Creatinine (0.6-1.4) mg/dl Est Cr Clr Drug Dosing ml/min Est GFR ( Amer) ml/min Est GFR (Non-Af Amer) ml/min BUN/Creatinine Ratio (10-20) Glucose (70-99) mg/dl POC Glucose 53 L* 60 L* 62 L* (70-99) mg/dl Calcium (8.5-10.1) mg/dl Magnesium (1.8-2.4) mg/dl Iron (35-175) mcg/dl TIBC (250-450) mcg/dl Transferrin (200-360) mg/dl Transferrin % Sat (20-50) % Ferritin (8-388) ng/ml Total Bilirubin (0.2-1) mg/dl AST (15-37) U/L ALT (12-78) U/L Alkaline Phosphatase (45-117) U/L Total Creatine Kinase (39-308) U/L Troponin I (0-0.045) ng/ml Total Protein (6.4-8.2) gm/dl Albumin (3.4-5.0) gm/dl Globulin (2.5-4.0) gm/dl Albumin/Globulin Ratio (0.9-2) Vitamin B12 (193-986) pg/ml Folate (>5.38) ng/ml Urine Color Urine Appearance (Clear) Urine pH (4.5-7.5) Ur Specific [place] (1.000-1.030) Urine Protein (Negative) Urine Glucose (UA) (Negative) Urine Ketones (Negative) Urine Blood (Negative) Urine Nitrite (Negative) Urine Bilirubin (Negative) Urine Urobilinogen (Negative) Ur Leukocyte Esterase (Negative) Urine WBC (Auto) (0-5) /hpf Urine RBC (Auto) (0-4) /hpf U Hyaline Cast (Auto) (0-5) /lpf U Epithel Cells (Auto) (0-5) /lpf Urine Bacteria (Auto) (Negative) Lyme Disease IgG Ab (Negative) Lyme Disease IgM Ab (Negative) COVID-19 Eval Order SARS-CoV-2 (PCR) (Negative) Blood Type Antibody Screen 10/17/20 10/17/20 10/17/20 Range/Units 07:13 07:13 07:13 WBC (4.8-10.8) K/uL RBC (4.7-6.1) M/uL Hgb (14.0-18.0) g/dL Hct (42-52) % MCV (80-100) fL MCH (25-34) pg MCHC (32-36) g/dL RDW Std Deviation (36.4-46.3) fL RDW Coeff of Nona (11.5-14.5) % Plt Count (130-400) K/uL MPV (7.4-10.4) fL ESR (0-20) mm/hr PT (9.0-12.0) Seconds INR (0.9-1.1) APTT (21.0-31.0) Seconds PTT Ratio Sodium 139 (136-145) mmol/L Potassium 4.1 (3.5-5.1) mmol/L Chloride 109 H (98-107) mmol/L Carbon Dioxide 24 (21-32) mmol/L Anion Gap 5.0 (3-11) BUN 62 H (7-18) mg/dl Creatinine 2.42 H (0.6-1.4) mg/dl Est Cr Clr Drug Dosing 30.0 ml/min Est GFR ( Amer) 29.0 ml/min Est GFR (Non-Af Amer) 25.0 ml/min BUN/Creatinine Ratio 25.4 H (10-20) Glucose 45 L* (70-99) mg/dl POC Glucose (70-99) mg/dl Calcium 8.9 (8.5-10.1) mg/dl Magnesium (1.8-2.4) mg/dl Iron 81 (35-175) mcg/dl TIBC 253 (250-450) mcg/dl Transferrin 222 (200-360) mg/dl Transferrin % Sat 26 (20-50) % Ferritin 347.6 (8-388) ng/ml Total Bilirubin 0.3 (0.2-1) mg/dl AST 35 (15-37) U/L ALT 20 (12-78) U/L Alkaline Phosphatase 41 L (45-117) U/L Total Creatine Kinase (39-308) U/L Troponin I 0.112 H* (0-0.045) ng/ml Total Protein 6.4 (6.4-8.2) gm/dl Albumin 3.2 L (3.4-5.0) gm/dl Globulin 3.2 (2.5-4.0) gm/dl Albumin/Globulin Ratio 1.0 (0.9-2) Vitamin B12 1210 H (193-986) pg/ml Folate 10.90 (>5.38) ng/ml Urine Color Urine Appearance (Clear) Urine pH (4.5-7.5) Ur Specific [place] (1.000-1.030) Urine Protein (Negative) Urine Glucose (UA) (Negative) Urine Ketones (Negative) Urine Blood (Negative) Urine Nitrite (Negative) Urine Bilirubin (Negative) Urine Urobilinogen (Negative) Ur Leukocyte Esterase (Negative) Urine WBC (Auto) (0-5) /hpf Urine RBC (Auto) (0-4) /hpf U Hyaline Cast (Auto) (0-5) /lpf U Epithel Cells (Auto) (0-5) /lpf Urine Bacteria (Auto) (Negative) Lyme Disease IgG Ab (Negative) Lyme Disease IgM Ab (Negative) COVID-19 Eval Order SARS-CoV-2 (PCR) (Negative) Blood Type Antibody Screen 10/17/20 10/17/20 10/16/20 Range/Units 07:13 07:13 20:53 WBC 4.87 (4.8-10.8) K/uL RBC 3.22 L (4.7-6.1) M/uL Hgb 10.2 L (14.0-18.0) g/dL Hct 30.6 L (42-52) % MCV 95.0 (80-100) fL MCH 31.7 (25-34) pg MCHC 33.3 (32-36) g/dL RDW Std Deviation 48.9 H (36.4-46.3) fL RDW Coeff of Nona 14.1 (11.5-14.5) % Plt Count 167 (130-400) K/uL MPV 10.2 (7.4-10.4) fL ESR 28 H (0-20) mm/hr PT (9.0-12.0) Seconds INR (0.9-1.1) APTT (21.0-31.0) Seconds PTT Ratio Sodium (136-145) mmol/L Potassium (3.5-5.1) mmol/L Chloride (98-107) mmol/L Carbon Dioxide (21-32) mmol/L Anion Gap (3-11) BUN (7-18) mg/dl Creatinine (0.6-1.4) mg/dl Est Cr Clr Drug Dosing ml/min Est GFR ( Amer) ml/min Est GFR (Non-Af Amer) ml/min BUN/Creatinine Ratio (10-20) Glucose (70-99) mg/dl POC Glucose 75 (70-99) mg/dl Calcium (8.5-10.1) mg/dl Magnesium (1.8-2.4) mg/dl Iron (35-175) mcg/dl TIBC (250-450) mcg/dl Transferrin (200-360) mg/dl Transferrin % Sat (20-50) % Ferritin (8-388) ng/ml Total Bilirubin (0.2-1) mg/dl AST (15-37) U/L ALT (12-78) U/L Alkaline Phosphatase (45-117) U/L Total Creatine Kinase (39-308) U/L Troponin I (0-0.045) ng/ml Total Protein (6.4-8.2) gm/dl Albumin (3.4-5.0) gm/dl Globulin (2.5-4.0) gm/dl Albumin/Globulin Ratio (0.9-2) Vitamin B12 (193-986) pg/ml Folate (>5.38) ng/ml Urine Color Urine Appearance (Clear) Urine pH (4.5-7.5) Ur Specific [place] (1.000-1.030) Urine Protein (Negative) Urine Glucose (UA) (Negative) Urine Ketones (Negative) Urine Blood (Negative) Urine Nitrite (Negative) Urine Bilirubin (Negative) Urine Urobilinogen (Negative) Ur Leukocyte Esterase (Negative) Urine WBC (Auto) (0-5) /hpf Urine RBC (Auto) (0-4) /hpf U Hyaline Cast (Auto) (0-5) /lpf U Epithel Cells (Auto) (0-5) /lpf Urine Bacteria (Auto) (Negative) Lyme Disease IgG Ab (Negative) Lyme Disease IgM Ab (Negative) COVID-19 Eval Order SARS-CoV-2 (PCR) (Negative) Blood Type Antibody Screen 10/16/20 10/16/20 10/16/20 Range/Units 20:43 17:05 17:05 WBC (4.8-10.8) K/uL RBC (4.7-6.1) M/uL Hgb (14.0-18.0) g/dL Hct (42-52) % MCV (80-100) fL MCH (25-34) pg MCHC (32-36) g/dL RDW Std Deviation (36.4-46.3) fL RDW Coeff of Nona (11.5-14.5) % Plt Count (130-400) K/uL MPV (7.4-10.4) fL ESR (0-20) mm/hr PT (9.0-12.0) Seconds INR (0.9-1.1) APTT (21.0-31.0) Seconds PTT Ratio Sodium (136-145) mmol/L Potassium (3.5-5.1) mmol/L Chloride (98-107) mmol/L Carbon Dioxide (21-32) mmol/L Anion Gap (3-11) BUN (7-18) mg/dl Creatinine (0.6-1.4) mg/dl Est Cr Clr Drug Dosing ml/min Est GFR ( Amer) ml/min Est GFR (Non-Af Amer) ml/min BUN/Creatinine Ratio (10-20) Glucose (70-99) mg/dl POC Glucose (70-99) mg/dl Calcium (8.5-10.1) mg/dl Magnesium (1.8-2.4) mg/dl Iron (35-175) mcg/dl TIBC (250-450) mcg/dl Transferrin (200-360) mg/dl Transferrin % Sat (20-50) % Ferritin (8-388) ng/ml Total Bilirubin (0.2-1) mg/dl AST (15-37) U/L ALT (12-78) U/L Alkaline Phosphatase (45-117) U/L Total Creatine Kinase (39-308) U/L Troponin I (0-0.045) ng/ml Total Protein (6.4-8.2) gm/dl Albumin (3.4-5.0) gm/dl Globulin (2.5-4.0) gm/dl Albumin/Globulin Ratio (0.9-2) Vitamin B12 (193-986) pg/ml Folate (>5.38) ng/ml Urine Color Yellow Urine Appearance Clear (Clear) Urine pH 7.5 (4.5-7.5) Ur Specific Denton 1.027 (1.000-1.030) Urine Protein Trace H (Negative) Urine Glucose (UA) Negative (Negative) Urine Ketones Negative (Negative) Urine Blood Negative (Negative) Urine Nitrite Negative (Negative) Urine Bilirubin Negative (Negative) Urine Urobilinogen Negative (Negative) Ur Leukocyte Esterase Negative (Negative) Urine WBC (Auto) 1-5 (0-5) /hpf Urine RBC (Auto) 0-4 (0-4) /hpf U Hyaline Cast (Auto) 0 (0-5) /lpf U Epithel Cells (Auto) 0-5 (0-5) /lpf Urine Bacteria (Auto) Negative (Negative) Lyme Disease IgG Ab (Negative) Lyme Disease IgM Ab (Negative) COVID-19 Eval Order Covid19 at [facility] SARS-CoV-2 (PCR) NEGATIVE (Negative) Blood Type Antibody Screen 10/16/20 10/16/20 10/16/20 Range/Units 15:21 15:20 15:20 WBC (4.8-10.8) K/uL RBC (4.7-6.1) M/uL Hgb (14.0-18.0) g/dL Hct (42-52) % MCV (80-100) fL MCH (25-34) pg MCHC (32-36) g/dL RDW Std Deviation (36.4-46.3) fL RDW Coeff of Nona (11.5-14.5) % Plt Count (130-400) K/uL MPV (7.4-10.4) fL ESR (0-20) mm/hr PT (9.0-12.0) Seconds INR (0.9-1.1) APTT (21.0-31.0) Seconds PTT Ratio Sodium 136 (136-145) mmol/L Potassium 4.6 (3.5-5.1) mmol/L Chloride 106 (98-107) mmol/L Carbon Dioxide 24 (21-32) mmol/L Anion Gap 6.0 (3-11) BUN 65 H (7-18) mg/dl Creatinine 2.62 H (0.6-1.4) mg/dl Est Cr Clr Drug Dosing 28.1 ml/min Est GFR ( Amer) 26.3 ml/min Est GFR (Non-Af Amer) 22.7 ml/min BUN/Creatinine Ratio 24.6 H (10-20) Glucose 73 (70-99) mg/dl POC Glucose (70-99) mg/dl Calcium 8.8 (8.5-10.1) mg/dl Magnesium 2.0 (1.8-2.4) mg/dl Iron (35-175) mcg/dl TIBC (250-450) mcg/dl Transferrin (200-360) mg/dl Transferrin % Sat (20-50) % Ferritin (8-388) ng/ml Total Bilirubin 0.4 (0.2-1) mg/dl AST 29 (15-37) U/L ALT 20 (12-78) U/L Alkaline Phosphatase 40 L (45-117) U/L Total Creatine Kinase 140 (39-308) U/L Troponin I 0.060 H* (0-0.045) ng/ml Total Protein 6.2 L (6.4-8.2) gm/dl Albumin 3.1 L (3.4-5.0) gm/dl Globulin 3.1 (2.5-4.0) gm/dl Albumin/Globulin Ratio 1.0 (0.9-2) Vitamin B12 (193-986) pg/ml Folate (>5.38) ng/ml Urine Color Urine Appearance (Clear) Urine pH (4.5-7.5) Ur Specific [place] (1.000-1.030) Urine Protein (Negative) Urine Glucose (UA) (Negative) Urine Ketones (Negative) Urine Blood (Negative) Urine Nitrite (Negative) Urine Bilirubin (Negative) Urine Urobilinogen (Negative) Ur Leukocyte Esterase (Negative) Urine WBC (Auto) (0-5) /hpf Urine RBC (Auto) (0-4) /hpf U Hyaline Cast (Auto) (0-5) /lpf U Epithel Cells (Auto) (0-5) /lpf Urine Bacteria (Auto) (Negative) Lyme Disease IgG Ab Negative (Negative) Lyme Disease IgM Ab Negative (Negative) COVID-19 Eval Order SARS-CoV-2 (PCR) (Negative) Blood Type Antibody Screen 10/16/20 10/16/20 Range/Units 15:20 15:20 WBC (4.8-10.8) K/uL RBC (4.7-6.1) M/uL Hgb (14.0-18.0) g/dL Hct (42-52) % MCV (80-100) fL MCH (25-34) pg MCHC (32-36) g/dL RDW Std Deviation (36.4-46.3) fL RDW Coeff of Nona (11.5-14.5) % Plt Count (130-400) K/uL MPV (7.4-10.4) fL ESR (0-20) mm/hr PT 11.6 (9.0-12.0) Seconds INR 1.2 H (0.9-1.1) APTT 30.6 (21.0-31.0) Seconds PTT Ratio 1.2 Sodium (136-145) mmol/L Potassium (3.5-5.1) mmol/L Chloride (98-107) mmol/L Carbon Dioxide (21-32) mmol/L Anion Gap (3-11) BUN (7-18) mg/dl Creatinine (0.6-1.4) mg/dl Est Cr Clr Drug Dosing ml/min Est GFR ( Amer) ml/min Est GFR (Non-Af Amer) ml/min BUN/Creatinine Ratio (10-20) Glucose (70-99) mg/dl POC Glucose (70-99) mg/dl Calcium (8.5-10.1) mg/dl Magnesium (1.8-2.4) mg/dl Iron (35-175) mcg/dl TIBC (250-450) mcg/dl Transferrin (200-360) mg/dl Transferrin % Sat (20-50) % Ferritin (8-388) ng/ml Total Bilirubin (0.2-1) mg/dl AST (15-37) U/L ALT (12-78) U/L Alkaline Phosphatase (45-117) U/L Total Creatine Kinase (39-308) U/L Troponin I (0-0.045) ng/ml Total Protein (6.4-8.2) gm/dl Albumin (3.4-5.0) gm/dl Globulin (2.5-4.0) gm/dl Albumin/Globulin Ratio (0.9-2) Vitamin B12 (193-986) pg/ml Folate (>5.38) ng/ml Urine Color Urine Appearance (Clear) Urine pH (4.5-7.5) Ur Specific [place] (1.000-1.030) Urine Protein (Negative) Urine Glucose (UA) (Negative) Urine Ketones (Negative) Urine Blood (Negative) Urine Nitrite (Negative) Urine Bilirubin (Negative) Urine Urobilinogen (Negative) Ur Leukocyte Esterase (Negative) Urine WBC (Auto) (0-5) /hpf Urine RBC (Auto) (0-4) /hpf U Hyaline Cast (Auto) (0-5) /lpf U Epithel Cells (Auto) (0-5) /lpf Urine Bacteria (Auto) (Negative) Lyme Disease IgG Ab (Negative) Lyme Disease IgM Ab (Negative) COVID-19 Eval Order SARS-CoV-2 (PCR) (Negative) Blood Type O Positive Antibody Screen NEGATIVE Diagnostic Findings Head CT 10/16/20 14:56 CT head/brain wo con CLINICAL HISTORY: Stroke Like Symptoms COMPARISON STUDY: MRI the brain dated 10/03/2020, CT scan dated 10/01/2020 TECHNIQUE: Axial CT of the brain is performed from the vertex to the skull base. IV contrast was not administered for this examination. A dose lowering technique was utilized adhering to the principles of ALARA. CT DOSE: FINDINGS: No intra or extra-axial mass lesions are visualized. There is no CT evidence of acute cortical infarction. There is no evidence of midline shift. There is no acute hemorrhage. No calvarial fractures are visualized. There are patchy white matter hypodensities likely on a small vessel basis. There is no evidence of pathologic ventricular dilatation. There is no evidence of acute sinusitis IMPRESSION: No acute intracranial findings ACT 112: Negative or not required by law. Electronically signed by: Mayito Bolton M.D. 10/16/2020 3:17 PM Head CTA 10/16/20 14:56 CTA ANGIOGRAPHY OF THE HEAD CLINICAL HISTORY: Stroke Like Symptoms COMPARISON STUDY: Head CT October 01, 2020. MRI of the brain October 03, 2020. TECHNIQUE: Helical axial images of the head were obtained following uneventful intravenous administration of 120 cc of Optiray. Sagittal and coronal reconstructions were viewed as well as maximal intensity projections on an independent 3-D workstation. Automated exposure control was utilized for the study. A dose lowering technique was utilized adhering to the principles of ALARA. FINDINGS: Please note that the head CT will reported separately. The bilateral M1, M2, A1 and A2 segments are patent. No central vessel occlusion is noted. There is persistence of the right posterior cerebral artery. There is moderate calcified plaque within the bilateral cavernous carotids without significant stenosis. The left vertebral artery is dominant. There is moderate stenosis of the intracranial portion of the right vertebral artery. Note is made of moderate stenosis of the proximal right posterior cerebral artery. No intracranial aneurysm is identified. No dissection is noted within the intracranial vessels. No acute intracranial hemorrhage, midline shift or mass effect is present. IMPRESSION: 1. No central vessel occlusion. No intracranial aneurysm. 2. Moderate multifocal stenoses within the intracranial vessels, as described above. ACT 112: Negative or not required by law. Electronically signed by: Yosef Still M.D. 10/16/2020 3:34 PM Neck CTA 10/16/20 14:56 CT angio neck with con CLINICAL HISTORY: Stroke Like Symptoms COMPARISON STUDY: No previous studies for comparison. TECHNIQUE: CT angiography was performed from the aortic arch to the skull base. MIP imaging was performed. The patient was scanned in a dynamic helical fashion during intravenous administration of 120 cc of Optiray. A dose lowering technique was utilized adhering to the principles of ALARA. CT DOSE: Technique: CT angiogram of the carotid and vertebral arteries was obtained using intravenous contrast and 3-D reconstruction. NASCET criteria was utilized. Findings: There is a multinodular thyroid gland. There are mild to moderate atheromatous changes the level the right carotid bifurcation without evidence for hemodynamically significant stenosis. There are moderate atheromatous changes at the left carotid bifurcation without evidence of a hemodynamically significant stenosis. There are atherosclerotic calcifications involving the origin the right vertebral which limits evaluation for stenosis. There are distal vertebral artery calcifications which result in a 50% diameter narrowing of the distal right vertebral artery. There is no evidence of dissection IMPRESSION: 1. Atheromatous change but no evidence of hemodynamically significant carotid stenosis 2. Probable stenosis involving the origin of the right vertebral artery. Evaluation is limited due to calcified plaque 3. Distal vertebral artery calcifications which results in a 50% diameter narrowing in the distal right vertebral artery. ACT 112: Negative or not required by law. Electronically signed by: Mayito Bolton M.D. 10/16/2020 3:[address] 10/16/20 20:35 CT lumbar spine wo con CLINICAL HISTORY: back pain, stroke alert, bowel incontinence COMPARISON STUDY: Lumbar spine MRI September 04, 2014. TECHNIQUE: Axial images of the lumbar spine were obtained without IV contrast. Sagittal and coronal reconstructions were viewed. Automated exposure control was utilized for the study. A dose lowering technique was utilized adhering to the principles of ALARA. FINDINGS: For purposes of numbering on this exam, the L5-S1 disc space is assigned to axial image 303 of 375. There is 8 mm of anterolisthesis of L4 and L5. This has mildly increased since MRI of September 04, 2014. No acute lumbar spine fracture is noted. There are no suspicious osseous lesions. Vacuum disc phenomenon is noted at each level. There is severe disc space narrowing at L5- S1. Moderate disc space narrowing is noted at multiple additional levels. There is severe multilevel facet arthrosis. Contrast within the collecting systems, ureters and bladder is from recent contrast-enhanced CT. The urinary bladder is distended. This is partially imaged on this exam. Central canal and neural foramen are suboptimally assessed by CT. However, there is severe central canal stenosis at L4-L5 which has progressed since previous MRI. In addition, there is probable severe central canal stenosis at L3-L4. Mild to moderate central canal stenosis at L2-L3 is noted. Suspected severe multilevel neural foraminal stenosis. IMPRESSION: 1. No acute lumbar spine fracture or subluxation. 2. Severe multilevel degenerative changes within the lumbar spine. Suboptimal evaluation of the central canal and neural foramen given CT technique. However, severe central stenosis at L4-L5 and probable severe central canal stenosis at L3-L4. There are multilevel neural foraminal stenosis. 3. Grade one anterolisthesis of L4 and L5 due to facet arthrosis. 4. Distended bladder. ACT 112: Negative or not required by law. Electronically signed by: Yosef Still M.D. 10/16/2020 10:26 PM Venous Doppler Study 10/16/20 20:35 LEFT LOWER EXTREMITY VENOUS DOPPLER CLINICAL HISTORY: f/u DVT COMPARISON STUDY: Bilateral lower extremity venous Doppler ultrasound April 17, 2020. TECHNIQUE: Sonography of the deep venous system of the left lower extremity was performed. Compression and augmentation were evaluated. FINDINGS: The common femoral and superficial femoral veins are patent. There is nonocclusive thrombus within the left popliteal, posterior tibial and peroneal veins. Thrombus was shown within these vessels on ultrasound of April 17, 2020. The extent of thrombus is unchanged or slightly decreased since prior exam. IMPRESSION: Nonocclusive deep venous thrombus within the left popliteal, posterior tibial and peroneal veins which is either unchanged or slightly decreased since prior ultrasound April 17, 2020. This suggests chronic thrombus. ACT 112: Negative or not required by law. Electronically signed by: Yosef Still M.D. 10/16/2020 10:15 PM PG Care Time/CCT Total # of Minutes Spent Total Time Spent with Patient: Total time spent is greater than 50% in coordination of care (as documented) at patient's floor/unit and/or counseling patient: Coding Level of Care Code 63521 Subseq Hosp Care Lvl 3 Diagnoses Weakness R53.1 Brain TIA G45.9 Facial droop R29.810 Anemia of chronic disease D63.8 Hypertriglyceridemia E78.1 Status post placement of cardiac pacemaker Z95.0 History of CVA (cerebrovascular accident) Z86.73 B12 deficiency E53.8 Deep vein thrombosis (DVT) of left lower extremity I82.402 Urinary incontinence R32 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
[2020-10-17 07:45] LABS: Hematocrit (blood only) 30.6 % (42-52); Hemoglobin 10.2 g/dL (14.0-18.0); Mean Corpuscular Hemoglobin 31.7 pg (25-34); Mean Corpuscular Hgb Conc 33.3 g/dL (32-36); Mean Platelet Volume 10.2 fL (7.4-10.4); Platelet Count 167 K/uL (130-400); RDW Coefficient of Variation 14.1 % (11.5-14.5); RDW Standard Deviation 48.9 fL (36.4-46.3); Red Blood Count 3.22 M/uL (4.7-6.1); White Blood Count 4.87 K/uL (4.8-10.8)
[2020-10-17 08:24] LABS: Albumin Level 3.2 gm/dl (3.4-5.0); BUN Creatinine Ratio 25.4 (10-20); Bilirubin,Total 0.3 mg/dl (0.2-1); Calcium 8.9 mg/dl (8.5-10.1); Ferritin 347.6 ng/ml (8-388); Globulin 3.2 gm/dl (2.5-4.0); Potassium 4.1 mmol/L (3.5-5.1); Total Protein 6.4 gm/dl (6.4-8.2)
[2020-10-17] MEDS: DOCUSATE SODIUM 100 MG CAP PO SCH ×2 (08:29→20:25)
[2020-10-17] MEDS: hydrALAZINE HCL 25 MG TAB PO SCH ×2 (08:29→20:25)
[2020-10-17] MEDS: FINASTERIDE 5 MG TAB PO SCH (08:29)
[2020-10-17] MEDS: CHOLECALCIFEROL 1,000 UNITS 25 MCG TAB PO SCH (08:30)
[2020-10-17] MEDS: ISOSORBIDE MONO EXTENDED REL 60 MG TABCR PO SCH (08:30)
[2020-10-17] MEDS: FELODIPINE 5 MG TABCR PO SCH (08:30)
[2020-10-17] MEDS: CYANOCOBALAMIN 500 MCG TABLET (VITAMIN B-12) PO SCH (08:30)
[2020-10-17 08:31] LABS: Folate (Folic Acid) 10.9 ng/ml (>5.38)
[2020-10-17] MEDS: TAMSULOSIN HCL 0.4 MG CAP PO SCH ×2 (08:31→20:25)
[2020-10-17] MEDS: APIXABAN 5 MG TABLET PO SCH ×2 (08:31→20:25)
[2020-10-17] MEDS: POLYETHYLENE (MIRALAX) 17 GM PACK PO SCH (08:36)
[2020-10-17] MEDS: METOPROLOL TARTRATE 100 MG TAB PO SCH ×2 (08:38→20:25)
[2020-10-17] MEDS: SODIUM CHLORIDE 0.9% 1000ML 1,000 ML IV SCH (08:41)
[2020-10-17] MEDS: INSULIN ASPART 100 UNITS/ML 3 ML PEN SC SCH ×4 (08:45→20:21)
[2020-10-17] MEDS: INSULIN GLARGINE SOLOSTAR 100 UNITS/ML 3 ML PEN SC SCH ×2 (08:45→08:53)
[2020-10-17] MEDS ORDERED: NON-FORMULARY MEDICATION (Solifenacin [Vesicare] 10 mg tablet) PO SCH (09:00)
[2020-10-17] MEDS ORDERED: FENOFIBRATE MICRONIZED 67 MG PO SCH (09:00)
[2020-10-17] MEDS ORDERED: INSULIN GLARGINE SOLOSTAR 100 UNITS/ML 3 ML PEN SC SCH ×2 (09:00→12:30)
--- NOTE | 2020-10-17 09:18 | Orthopedic Consultation ---
Date of Consultation October 17, 2020 Assessment & Plan (1) Neurogenic claudication due to lumbar spinal stenosis: I have discussed with the patient his CAT scan findings and clinical presentation. He is clear severe lumbar spinal stenosis most impressive at L3-4 and L4-L5. There is anterior listhesis L4-L5. This is undoubtedly creating his leg weakness and limitation with standing walking. He is however satisfied with his quality of life at this time. He is not discharged in any surgical intervention. I would be happy to follow in the future if there is any change or decline in his status. History of Present Illness Reason for Consultation: Leg weakness Attending Physician: Toni Norman MD History of Present Illness This is a very pleasant 75-year-old male that was admitted last evening with multiple medical issues. He has some concerns with left leg weakness. He does have a known history of spinal stenosis. He states he is always obtained significant relief while sitting. Standing walking he notes weakness affecting left lower extremity greater than right lower extremity. He states his pain is well controlled. This morning he is in no pain regarding his back or lower extremities. Allergies Allergy/AdvReac Type Severity Reaction Status Date / Time No Known Allergies Allergy ` Verified 10/16/20 17:10 Home Medications Medication Instructions Recorded Confirmed Type cholecalciferol (vitamin D3) 25 1,000 units PO DAILY #90 cap 09/09/19 10/16/20 Rx mcg (1,000 unit) capsule fenofibrate micronized 67 mg 67 mg PO DAILY #90 cap 12/05/19 10/16/20 Rx capsule felodipine 10 mg tablet,extended 10 mg PO DAILY #90 tab 02/04/20 10/16/20 Rx release 24 hr lisinopril 40 mg tablet 40 mg PO DAILY #90 tab 02/10/20 10/16/20 Rx metoprolol tartrate 100 mg tablet 100 mg PO BID #180 tab 05/11/20 10/16/20 Rx blood sugar diagnostic (OneTouch #100 ea 06/29/20 09/14/20 Rx Ultra Blue Test Strip) apixaban 5 mg tablet (Eliquis) 5 mg PO BID #60 tab 07/13/20 10/16/20 Rx insulin glargine U-300 conc 300 30 unit SUBCUT DAILY ml 07/13/20 10/16/20 History unit/mL (1.5 mL) subcutaneous pen (Toujeo SoloStar U-300 Insulin) simvastatin 10 mg tablet 10 mg PO DAILY #90 tab 08/18/20 10/16/20 Rx solifenacin 10 mg tablet (Vesicare) 10 mg PO DAILY #30 tab 08/19/20 10/16/20 Rx acetaminophen 325 mg tablet 650 mg PO Q4H PRN #30 tab 10/09/20 10/16/20 Rx cyanocobalamin (vitamin B-12) 500 1,000 mcg PO QAM #60 tab 10/09/20 10/16/20 Rx mcg tablet docusate sodium 100 mg capsule 100 mg PO BID #60 cap 10/09/20 10/16/20 Rx finasteride 5 mg tablet (Proscar) 5 mg PO QAM #30 tab 10/09/20 10/16/20 Rx gabapentin 100 mg capsule 100 mg PO TID #90 cap 10/09/20 10/16/20 Rx hydralazine 25 mg tablet 25 mg PO BID #60 tab 10/09/20 10/16/20 Rx isosorbide mononitrate 30 mg 60 mg PO DAILY #60 tab 10/09/20 10/16/20 Rx tablet,extended release 24 hr polyethylene glycol 3350 17 gram 17 g PO DAILY #30 ea 10/09/20 10/16/20 Rx oral powder packet (Miralax) tamsulosin 0.4 mg capsule 0.4 mg PO BID #60 cap 10/09/20 10/16/20 Rx Patient History Medical History Anemia of chronic disease BPH with obstruction/lower urinary tract symptoms CKD (chronic kidney disease) Deep vein thrombosis (DVT) of left lower extremity Diabetes Elevated troponin History of CVA (cerebrovascular accident) Hypertension Hypertriglyceridemia Hypertrophic obstructive cardiomyopathy (HOCM) Low back pain Mobitz (type) II atrioventricular block Proteinuria Sinus node dysfunction Skin carcinoma Spinal stenosis Subclavian vein thromboembolism, acute Syncope and collapse Surgical History H/O arthroscopy of knee History of cataract surgery Status post placement of cardiac pacemaker Family History Mother Ovarian cancer Diabetes Father Diabetes Unknown Coronary heart disease Denies family history of Prostate cancer Myocardial infarction Breast cancer Colorectal cancer Social History Smoking Status: Never smoker Second Hand Exposure: No; Hx Alcohol Use: No Hx Substance Use: No Preferred Language: Mongolian Communication Ability: Effective Forest Fire Prevention Specialist Required: No Beliefs That Will Affect Care: None marital status: / Current Living Situation: Family Current Living Situation Comment: home with brother, was just discharged from [facility] earlier today current occupational status: retired Feels Safe at Home: Yes Safety Concerns: Feels Safe At This Time Childhood Exposure to Second-Hand Smoke: No caffeine: Yes Dental Care, Regularly: Yes Physical Activity Frequency: 1-2 Times per Week Seatbelt Use: always Sunscreen Use: No Assistive Devices: None Physical Exam Physical Exam: On exam he sitting up in bed. He has plus out of 5 bilateral plantar flexion dorsiflexion quadriceps. Sensory symmetric and intact. And I do not appreciate any severe swelling to lower extremities. Results & Data ([facility]) Vital Signs (Past 12 Hours) Vital Signs Temp Pulse Pulse Resp BP Pulse Ox 10/17/20 08:00 36.6 C 50 L 18 119/62 98 10/17/20 07:34 54 L 10/17/20 03:47 36.6 C 16 106/66 97 10/16/20 23:21 36.4 C L 66 18 115/60 98 10/16/20 23:00 68
[2020-10-17] MEDS ORDERED: PHARMACY GLYCEMIC MGMT CONSULT SCH (10:02)
--- NOTE | 2020-10-17 10:03 | Ultrasound Report ---
RENAL ULTRASOUND HISTORY: Urinary Urgency; eval outlet obstruction COMPARISON: Abdomen and pelvis CT 10/01/2020. FINDINGS: Right kidney: 10.8 cm. Trace perinephric fluid. A 1.5 cm lower pole cyst. No hydronephrosis. Normal c orticomedullary differentiation and cortical thickness. Left kidney: 11.9 cm. No hydronephrosis. Normal corticomedullary differentiation and cortical thickne ss. Bladder: No bladder wall thickening. The bilateral ureteral jets are not identified. The bladder erika ins distended demonstrating a postvoid volume of 416 cc. IMPRESSION: 1. No hydronephrosis. 2. Distended bladder with a postvoid volume of 416 cc. This consistent with bladder outlet obstructio n. Recommend catheterization. ACT 112: Negative or not required by law. Electronically signed by: Fahad Leon M.D. 10/17/2020 10:02 AM
--- NOTE | 2020-10-17 10:20 | Electrocardiogram Report ---
Test Reason : Blood Pressure : / mmHG Vent. Rate : 058 BPM Atrial Rate : 058 BPM P-R Int : 332 ms QRS Dur : 146 ms QT Int : 460 ms P-R-T Axes : 000 -08 020 degrees QTc Int : 451 ms Atrial-paced rhythm with prolonged AV conduction Right bundle branch block Abnormal ECG When compared with ECG of 03-OCT-2020 05:11, Electronic atrial pacemaker has replaced Sinus rhythm Confirmed by Tino Mcmanus ([id number]) on 10/17/2020 10:20:05 AM Referred By: Confirmed By:Tino Mcmanus
--- NOTE | 2020-10-17 14:27 | Pharmacy Report ---
Pharmacy Glycemic Short Note 2 - Date of Service October 17, 2020 - Glycemic Short BSG Results (Last 24 hours): 10/16/20 10/16/20 10/17/20 15:20 20:53 07:13 Glucose 73 45 L* POC Glucose 75 10/17/20 10/17/20 10/17/20 07:46 07:48 08:20 Glucose POC Glucose 62 L* 60 L* 53 L* 10/17/20 10/17/20 08:44 12:00 Glucose POC Glucose 136 H 116 H OUTPATIENT ANTIDIABETIC REGIMEN: * Toujeo 30 units SQ Daily ASSESSMENT: * 75 year old male admitted with stroke like symptoms, CVA ruled out. * Blood sugars 60mg/dl this morning, begin basal at reduced dose and loose CF/CR PLAN FOR INPATIENT GLYCEMIC CONTROL: * Basal insulin * Lantus 12 units SQ daily * Bolus insulin * NovoLog per scale ACHS or Q6hrs while NPO * Goal Range: Low 110 mg/dL - High 140 mg/dL * Correction Factor: 30 mg/dL/unit * Nutritional / Prandial insulin per carb ratio of 1 unit per 10 grams CHO consumed PLAN FOR DISCHARGE: * to be determined
[2020-10-17] MEDS: ATORVASTATIN 40 MG TAB PO SCH (20:24)
[2020-10-18 03:52] LABS: Basophils # (auto) 0.01 K/uL (0-0.2); Basophils % (auto) 0.2 %; Eosinophils % (auto) 4.6 %; Hematocrit (blood only) 28.8 % (42-52); Hemoglobin 9.5 g/dL (14.0-18.0); Immature Granulocytes # (auto) 0.01 K/uL (0.00-0.02); Immature Granulocytes % (auto) 0.2 %; Lymphocytes # (auto) 1.16 K/uL (1.2-3.4); Lymphocytes % (auto) 26.8 %; Mean Corpuscular Hemoglobin 31.6 pg (25-34); Mean Corpuscular Volume 95.7 fL (80-100); Mean Platelet Volume 10.2 fL (7.4-10.4); Monocytes # (auto) 0.56 K/uL (0.11-0.59); Monocytes % (auto) 12.9 %; Neutrophils # (auto) 2.39 K/uL (1.4-6.5); Neutrophils % (auto) 55.3 %; Platelet Count 158 K/uL (130-400); RDW Standard Deviation 48.6 fL (36.4-46.3); Red Blood Count 3.01 M/uL (4.7-6.1); White Blood Count 4.33 K/uL (4.8-10.8)
[2020-10-18 04:15] LABS: Calcium 8.7 mg/dl (8.5-10.1); Creatinine Clr Calc Pharmacy 26.3 ml/min; Est GFR (African American) 24.7 ml/min; Est GFR (Non-African American) 21.3 ml/min; Potassium 4.3 mmol/L (3.5-5.1)
[2020-10-18 04:20] LABS: Prostate Specific Antigen 2.47 ng/ml (0-4)
--- NOTE | 2020-10-18 07:45 | Hospitalist Progress Note ---
Date of Service October 18, 2020 Assessment & Plan (1) Weakness: Plan: Transient episode of slurred speech following discharge from [facility] for rehab from prior hospitalization for weakness earlier this month, possibly brain TIA Stroke alert called -- no acute stroke identified Symptoms resolved at current time and would avoid repeating brain MRI (done October 03 of this year) which showed older CVA but nothing acute At that time, patient was to be on high-intensity statin but does not appear this was done --> placed on Lipitor 40mg HS and would continue this at discharge Was also not going to be taking the ASA while on Eliquis but discussed importance and continued 81mg ASA daily Trop not as elevated as last admission but will trend-- 0.130 this morning (No CP,SOB). 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 --> Can have follow up if progresses/per patient wishes PT/OT evals rec rehab-- patient would like [facility] if possible at d/c. CM following Hypoglycemia this morning with glucose 55 on AM draw -> per patient he had previously been on 51u Toujeo and took himself down to 30 u by himself for frequent hypoglycemia. A1c 5.8 --> Consulted pharmacy and would anticipate lowered needs. Loosened parameters --> Current POC 84 on repeat after level 67 Holding gabapentin (new medication since last admission for his neuropathy) -- no increased neuropathy reported Holding off on repeat brain MRI given no focal deficits, but would consider if symptoms recur but suspect he may have been hypoglycemic/micturition syncope/etc prior to admission/presentation Follow labs in AM (2) Neurogenic claudication due to lumbar spinal stenosis: Plan: Severe multilevel degenerative changes within the lumbar spine. Suboptimal evaluation of the central canal and neural foramen given CT technique. However, severe central stenosis at L4-L5 and probable severe central canal stenosis at L3-L4. There are multilevel neural foraminal stenosis. 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 Had been on 51u in the past (given at night) and he backed himself down to 30U due to frequent hypoglycemia A1c only 5.8 Pharmacy consulted -- again low this morning ISS while inpatient Suspect decreased needs at discharge Continue to monitor baseline Cr 2.5, discussed with Dr Espinoza and would continue his lisinopril and see how his Cr responds. 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 Iron 81, TIBC 253, transferrin 222, trans % sat 26, ferritin 347 consult GI if focb + CBC in AM (8) Hypertriglyceridemia: Plan: Continue home meds Placed on lipitor as above (9) Status post placement of cardiac pacemaker: Plan: pacemaker interrogation ordered as above (10) History of CVA (cerebrovascular accident): Plan: noted old CVA last admission ASA, statin as above Will re-convene with Neurology in AM -- no need for formal consult/repeat brain MRI at this time Unlikely CVA and no need to obtain brain MRI at this time unless cognition changes/recurrence symptoms (11) B12 deficiency: Plan: Continue supplementation Check level in AM -- elevated as above Weakness likely from back (12) Deep vein thrombosis (DVT) of left lower extremity: Plan: Eliquis Repeat Venous Doppler -- chronic non-occlusive Continue Eliquis indefinitely (13) Urinary incontinence: Plan: Solifenacin, tamsulosin continued DVT Prophylaxis Eliquis Dispo: changed to full admit, continued inpatient stay likely through weekend Patient ok with CPR, medications but NO VENTILATOR PT/OT evals pending for possible rehab/SNF -- patient and brother agreeable to [facility] if possible. CM following (14) Elevated troponin: Plan: Trop 0.06 on admission --> increased to 0.117 (no CP/sob reported), trending down on repeat but still 0.107 Had elevations last admission up to 0.198 as wel and was 0.156 prior to discharge ECHO pending as above given hx SVM/LVOT Admission and Anticipated Discharge Date Admission Date: October 17, 2020 Subjective Patient evaluated this morning. Feels a little stronger than on admission but still with weakness worse on left leg compared to the right. Was seen by therapy this morning and his wishes are to be able to use cane at discharge. We discussed safety and he should be using the walker. Looking into rehab/SNF at discharge. No pain reported. Has been making urine and last PVR improved to 40s. Had some stool smear when getting up out of beds, bowel incontinence. Discussed surgery but he would still like to avoid at this time -- discussed he really should continue follow up/consideration in the future given his symptoms. He states old MRI didn't think any help with surgery, however discussed repeat CT of his lumbar spine does show worsening stenosis. Still would like to hold off at this time. Wanting to avoid Fung despite worsening Cr. Follows with Dr Espinoza and told he is on max therapy. No fever, chills, chest pain, shortness of breath, abdominal pain, nausea or vomiting. Review of Systems Review of Systems: All systems reviewed & are unremarkable except as noted in HPI & below Physical Exam Constitutional: WD/WN, vitals as above Eyes: + anicteric sclerae and PERRL; no anisocoria and no nystagmus Neck: trachea midline; no tracheal deviation Respiratory: normal respiratory effort, lungs clear to auscultation Cardiovascular: Rate/Rhythm: regular rhythm and + bradycardic Heart Sounds: normal S1 and normal S2; no murmur Extremities: + edema (L>R, pitting) Chest (Breasts): Additional Comments: pacemaker Gastrointestinal (Abdomen): normal bowel sounds, soft, nontender, no hepatosplenomegaly Musculoskeletal: 4-/5 b/l LE strength L weaker than R 5/5 UE b/l NVI except to light touch pulses palpable but weak on the left pt, dp Neurologic: patellar DTR's 2+ bilat, sensation intact (with exception of light touch) and PERRL, EOMI, accommodation nl, no face palsy, no dysarthria Psychiatric: A+Ox3, euthymic affect Lymphatic: no cervical or axillary lymphadenopathy Results & Data Results & Data ([facility]) Vital Signs (Past 12 Hours) Vital Signs Temp Pulse Pulse Resp BP Pulse Ox 10/18/20 07:18 57 L 10/18/20 02:48 36.6 C 60 19 142/63 H 98 10/18/20 00:00 55 L 10/17/20 22:12 36.7 C 70 18 161/73 H 97 Laboratory Results 10/18/20 10/18/20 10/18/20 Range/Units 07:30 07:28 03:36 WBC (4.8-10.8) K/uL RBC (4.7-6.1) M/uL Hgb (14.0-18.0) g/dL Hct (42-52) % MCV (80-100) fL MCH (25-34) pg MCHC (32-36) g/dL RDW Std Deviation (36.4-46.3) fL RDW Coeff of Nona (11.5-14.5) % Plt Count (130-400) K/uL MPV (7.4-10.4) fL Immature Gran % (Auto) % Neut % (Auto) % Lymph % (Auto) % [place] % (Auto) % Eos % (Auto) % Baso % (Auto) % Neut # (Auto) (1.4-6.5) K/uL Lymph # (Auto) (1.2-3.4) K/uL [place] # (Auto) (0.11-0.59) K/uL Eos # (Auto) (0-0.5) K/uL Baso # (Auto) (0-0.2) K/uL Immature Gran # (Auto) (0.00-0.02) K/uL ESR (0-20) mm/hr Sodium (136-145) mmol/L Potassium (3.5-5.1) mmol/L Chloride (98-107) mmol/L Carbon Dioxide (21-32) mmol/L Anion Gap (3-11) BUN (7-18) mg/dl Creatinine (0.6-1.4) mg/dl Est Cr Clr Drug Dosing ml/min Est GFR ( Amer) ml/min Est GFR (Non-Af Amer) ml/min BUN/Creatinine Ratio (10-20) Glucose (70-99) mg/dl POC Glucose 84 67 L* (70-99) mg/dl Calcium (8.5-10.1) mg/dl Iron (35-175) mcg/dl TIBC (250-450) mcg/dl Transferrin (200-360) mg/dl Transferrin % Sat (20-50) % Ferritin (8-388) ng/ml Total Bilirubin (0.2-1) mg/dl AST (15-37) U/L ALT (12-78) U/L Alkaline Phosphatase (45-117) U/L Troponin I 0.130 H* (0-0.045) ng/ml Total Protein (6.4-8.2) gm/dl Albumin (3.4-5.0) gm/dl Globulin (2.5-4.0) gm/dl Albumin/Globulin Ratio (0.9-2) Prostate Specific Ag (0-4) ng/ml Vitamin B12 (193-986) pg/ml Folate (>5.38) ng/ml 10/18/20 10/18/20 10/17/20 Range/Units 03:36 03:36 20:20 WBC 4.33 L (4.8-10.8) K/uL RBC 3.01 L (4.7-6.1) M/uL Hgb 9.5 L (14.0-18.0) g/dL Hct 28.8 L (42-52) % MCV 95.7 (80-100) fL MCH 31.6 (25-34) pg MCHC 33.0 (32-36) g/dL RDW Std Deviation 48.6 H (36.4-46.3) fL RDW Coeff of Nona 14.0 (11.5-14.5) % Plt Count 158 (130-400) K/uL MPV 10.2 (7.4-10.4) fL Immature Gran % (Auto) 0.2 % Neut % (Auto) 55.3 % Lymph % (Auto) 26.8 % [place] % (Auto) 12.9 % Eos % (Auto) 4.6 % Baso % (Auto) 0.2 % Neut # (Auto) 2.39 (1.4-6.5) K/uL Lymph # (Auto) 1.16 L (1.2-3.4) K/uL [place] # (Auto) 0.56 (0.11-0.59) K/uL Eos # (Auto) 0.20 (0-0.5) K/uL Baso # (Auto) 0.01 (0-0.2) K/uL Immature Gran # (Auto) 0.01 (0.00-0.02) K/uL ESR (0-20) mm/hr Sodium 139 (136-145) mmol/L Potassium 4.3 (3.5-5.1) mmol/L Chloride 110 H (98-107) mmol/L Carbon Dioxide 24 (21-32) mmol/L Anion Gap 5.0 (3-11) BUN 72 H (7-18) mg/dl Creatinine 2.76 H D (0.6-1.4) mg/dl Est Cr Clr Drug Dosing 26.3 ml/min Est GFR ( Amer) 24.7 ml/min Est GFR (Non-Af Amer) 21.3 ml/min BUN/Creatinine Ratio 26.0 H (10-20) Glucose 55 L (70-99) mg/dl POC Glucose 111 H (70-99) mg/dl Calcium 8.7 (8.5-10.1) mg/dl Iron (35-175) mcg/dl TIBC (250-450) mcg/dl Transferrin (200-360) mg/dl Transferrin % Sat (20-50) % Ferritin (8-388) ng/ml Total Bilirubin (0.2-1) mg/dl AST (15-37) U/L ALT (12-78) U/L Alkaline Phosphatase (45-117) U/L Troponin I (0-0.045) ng/ml Total Protein (6.4-8.2) gm/dl Albumin (3.4-5.0) gm/dl Globulin (2.5-4.0) gm/dl Albumin/Globulin Ratio (0.9-2) Prostate Specific Ag 2.470 (0-4) ng/ml Vitamin B12 (193-986) pg/ml Folate (>5.38) ng/ml 10/17/20 10/17/20 10/17/20 Range/Units 18:51 17:11 12:53 WBC (4.8-10.8) K/uL RBC (4.7-6.1) M/uL Hgb (14.0-18.0) g/dL Hct (42-52) % MCV (80-100) fL MCH (25-34) pg MCHC (32-36) g/dL RDW Std Deviation (36.4-46.3) fL RDW Coeff of Nona (11.5-14.5) % Plt Count (130-400) K/uL MPV (7.4-10.4) fL Immature Gran % (Auto) % Neut % (Auto) % Lymph % (Auto) % [place] % (Auto) % Eos % (Auto) % Baso % (Auto) % Neut # (Auto) (1.4-6.5) K/uL Lymph # (Auto) (1.2-3.4) K/uL [place] # (Auto) (0.11-0.59) K/uL Eos # (Auto) (0-0.5) K/uL Baso # (Auto) (0-0.2) K/uL Immature Gran # (Auto) (0.00-0.02) K/uL ESR (0-20) mm/hr Sodium (136-145) mmol/L Potassium (3.5-5.1) mmol/L Chloride (98-107) mmol/L Carbon Dioxide (21-32) mmol/L Anion Gap (3-11) BUN (7-18) mg/dl Creatinine (0.6-1.4) mg/dl Est Cr Clr Drug Dosing ml/min Est GFR ( Amer) ml/min Est GFR (Non-Af Amer) ml/min BUN/Creatinine Ratio (10-20) Glucose (70-99) mg/dl POC Glucose 98 (70-99) mg/dl Calcium (8.5-10.1) mg/dl Iron (35-175) mcg/dl TIBC (250-450) mcg/dl Transferrin (200-360) mg/dl Transferrin % Sat (20-50) % Ferritin (8-388) ng/ml Total Bilirubin (0.2-1) mg/dl AST (15-37) U/L ALT (12-78) U/L Alkaline Phosphatase (45-117) U/L Troponin I 0.110 H* 0.107 H* (0-0.045) ng/ml Total Protein (6.4-8.2) gm/dl Albumin (3.4-5.0) gm/dl Globulin (2.5-4.0) gm/dl Albumin/Globulin Ratio (0.9-2) Prostate Specific Ag (0-4) ng/ml Vitamin B12 (193-986) pg/ml Folate (>5.38) ng/ml 10/17/20 10/17/20 10/17/20 Range/Units 12:00 08:44 08:20 WBC (4.8-10.8) K/uL RBC (4.7-6.1) M/uL Hgb (14.0-18.0) g/dL Hct (42-52) % MCV (80-100) fL MCH (25-34) pg MCHC (32-36) g/dL RDW Std Deviation (36.4-46.3) fL RDW Coeff of Nona (11.5-14.5) % Plt Count (130-400) K/uL MPV (7.4-10.4) fL Immature Gran % (Auto) % Neut % (Auto) % Lymph % (Auto) % [place] % (Auto) % Eos % (Auto) % Baso % (Auto) % Neut # (Auto) (1.4-6.5) K/uL Lymph # (Auto) (1.2-3.4) K/uL [place] # (Auto) (0.11-0.59) K/uL Eos # (Auto) (0-0.5) K/uL Baso # (Auto) (0-0.2) K/uL Immature Gran # (Auto) (0.00-0.02) K/uL ESR (0-20) mm/hr Sodium (136-145) mmol/L Potassium (3.5-5.1) mmol/L Chloride (98-107) mmol/L Carbon Dioxide (21-32) mmol/L Anion Gap (3-11) BUN (7-18) mg/dl Creatinine (0.6-1.4) mg/dl Est Cr Clr Drug Dosing ml/min Est GFR ( Amer) ml/min Est GFR (Non-Af Amer) ml/min BUN/Creatinine Ratio (10-20) Glucose (70-99) mg/dl POC Glucose 116 H 136 H 53 L* (70-99) mg/dl Calcium (8.5-10.1) mg/dl Iron (35-175) mcg/dl TIBC (250-450) mcg/dl Transferrin (200-360) mg/dl Transferrin % Sat (20-50) % Ferritin (8-388) ng/ml Total Bilirubin (0.2-1) mg/dl AST (15-37) U/L ALT (12-78) U/L Alkaline Phosphatase (45-117) U/L Troponin I (0-0.045) ng/ml Total Protein (6.4-8.2) gm/dl Albumin (3.4-5.0) gm/dl Globulin (2.5-4.0) gm/dl Albumin/Globulin Ratio (0.9-2) Prostate Specific Ag (0-4) ng/ml Vitamin B12 (193-986) pg/ml Folate (>5.38) ng/ml 10/17/20 10/17/20 10/17/20 Range/Units 07:48 07:46 07:13 WBC (4.8-10.8) K/uL RBC (4.7-6.1) M/uL Hgb (14.0-18.0) g/dL Hct (42-52) % MCV (80-100) fL MCH (25-34) pg MCHC (32-36) g/dL RDW Std Deviation (36.4-46.3) fL RDW Coeff of Nona (11.5-14.5) % Plt Count (130-400) K/uL MPV (7.4-10.4) fL Immature Gran % (Auto) % Neut % (Auto) % Lymph % (Auto) % [place] % (Auto) % Eos % (Auto) % Baso % (Auto) % Neut # (Auto) (1.4-6.5) K/uL Lymph # (Auto) (1.2-3.4) K/uL [place] # (Auto) (0.11-0.59) K/uL Eos # (Auto) (0-0.5) K/uL Baso # (Auto) (0-0.2) K/uL Immature Gran # (Auto) (0.00-0.02) K/uL ESR (0-20) mm/hr Sodium (136-145) mmol/L Potassium (3.5-5.1) mmol/L Chloride (98-107) mmol/L Carbon Dioxide (21-32) mmol/L Anion Gap (3-11) BUN (7-18) mg/dl Creatinine (0.6-1.4) mg/dl Est Cr Clr Drug Dosing ml/min Est GFR ( Amer) ml/min Est GFR (Non-Af Amer) ml/min BUN/Creatinine Ratio (10-20) Glucose (70-99) mg/dl POC Glucose 60 L* 62 L* (70-99) mg/dl Calcium (8.5-10.1) mg/dl Iron (35-175) mcg/dl TIBC (250-450) mcg/dl Transferrin (200-360) mg/dl Transferrin % Sat (20-50) % Ferritin (8-388) ng/ml Total Bilirubin (0.2-1) mg/dl AST (15-37) U/L ALT (12-78) U/L Alkaline Phosphatase (45-117) U/L Troponin I 0.112 H* (0-0.045) ng/ml Total Protein (6.4-8.2) gm/dl Albumin (3.4-5.0) gm/dl Globulin (2.5-4.0) gm/dl Albumin/Globulin Ratio (0.9-2) Prostate Specific Ag (0-4) ng/ml Vitamin B12 (193-986) pg/ml Folate (>5.38) ng/ml 10/17/20 10/17/20 10/17/20 Range/Units 07:13 07:13 07:13 WBC (4.8-10.8) K/uL RBC (4.7-6.1) M/uL Hgb (14.0-18.0) g/dL Hct (42-52) % MCV (80-100) fL MCH (25-34) pg MCHC (32-36) g/dL RDW Std Deviation (36.4-46.3) fL RDW Coeff of Nona (11.5-14.5) % Plt Count (130-400) K/uL MPV (7.4-10.4) fL Immature Gran % (Auto) % Neut % (Auto) % Lymph % (Auto) % [place] % (Auto) % Eos % (Auto) % Baso % (Auto) % Neut # (Auto) (1.4-6.5) K/uL Lymph # (Auto) (1.2-3.4) K/uL [place] # (Auto) (0.11-0.59) K/uL Eos # (Auto) (0-0.5) K/uL Baso # (Auto) (0-0.2) K/uL Immature Gran # (Auto) (0.00-0.02) K/uL ESR 28 H (0-20) mm/hr Sodium 139 (136-145) mmol/L Potassium 4.1 (3.5-5.1) mmol/L Chloride 109 H (98-107) mmol/L Carbon Dioxide 24 (21-32) mmol/L Anion Gap 5.0 (3-11) BUN 62 H (7-18) mg/dl Creatinine 2.42 H (0.6-1.4) mg/dl Est Cr Clr Drug Dosing 30.0 ml/min Est GFR ( Amer) 29.0 ml/min Est GFR (Non-Af Amer) 25.0 ml/min BUN/Creatinine Ratio 25.4 H (10-20) Glucose 45 L* (70-99) mg/dl POC Glucose (70-99) mg/dl Calcium 8.9 (8.5-10.1) mg/dl Iron 81 (35-175) mcg/dl TIBC 253 (250-450) mcg/dl Transferrin 222 (200-360) mg/dl Transferrin % Sat 26 (20-50) % Ferritin 347.6 (8-388) ng/ml Total Bilirubin 0.3 (0.2-1) mg/dl AST 35 (15-37) U/L ALT 20 (12-78) U/L Alkaline Phosphatase 41 L (45-117) U/L Troponin I (0-0.045) ng/ml Total Protein 6.4 (6.4-8.2) gm/dl Albumin 3.2 L (3.4-5.0) gm/dl Globulin 3.2 (2.5-4.0) gm/dl Albumin/Globulin Ratio 1.0 (0.9-2) Prostate Specific Ag (0-4) ng/ml Vitamin B12 1210 H (193-986) pg/ml Folate 10.90 (>5.38) ng/ml 10/17/20 Range/Units 07:13 WBC 4.87 (4.8-10.8) K/uL RBC 3.22 L (4.7-6.1) M/uL Hgb 10.2 L (14.0-18.0) g/dL Hct 30.6 L (42-52) % MCV 95.0 (80-100) fL MCH 31.7 (25-34) pg MCHC 33.3 (32-36) g/dL RDW Std Deviation 48.9 H (36.4-46.3) fL RDW Coeff of Nona 14.1 (11.5-14.5) % Plt Count 167 (130-400) K/uL MPV 10.2 (7.4-10.4) fL Immature Gran % (Auto) % Neut % (Auto) % Lymph % (Auto) % [place] % (Auto) % Eos % (Auto) % Baso % (Auto) % Neut # (Auto) (1.4-6.5) K/uL Lymph # (Auto) (1.2-3.4) K/uL [place] # (Auto) (0.11-0.59) K/uL Eos # (Auto) (0-0.5) K/uL Baso # (Auto) (0-0.2) K/uL Immature Gran # (Auto) (0.00-0.02) K/uL ESR (0-20) mm/hr Sodium (136-145) mmol/L Potassium (3.5-5.1) mmol/L Chloride (98-107) mmol/L Carbon Dioxide (21-32) mmol/L Anion Gap (3-11) BUN (7-18) mg/dl Creatinine (0.6-1.4) mg/dl Est Cr Clr Drug Dosing ml/min Est GFR ( Amer) ml/min Est GFR (Non-Af Amer) ml/min BUN/Creatinine Ratio (10-20) Glucose (70-99) mg/dl POC Glucose (70-99) mg/dl Calcium (8.5-10.1) mg/dl Iron (35-175) mcg/dl TIBC (250-450) mcg/dl Transferrin (200-360) mg/dl Transferrin % Sat (20-50) % Ferritin (8-388) ng/ml Total Bilirubin (0.2-1) mg/dl AST (15-37) U/L ALT (12-78) U/L Alkaline Phosphatase (45-117) U/L Troponin I (0-0.045) ng/ml Total Protein (6.4-8.2) gm/dl Albumin (3.4-5.0) gm/dl Globulin (2.5-4.0) gm/dl Albumin/Globulin Ratio (0.9-2) Prostate Specific Ag (0-4) ng/ml Vitamin B12 (193-986) pg/ml Folate (>5.38) ng/ml Diagnostic Findings Renal Ultrasound 10/17/20 06:29 RENAL ULTRASOUND HISTORY: Urinary Urgency; eval outlet obstruction COMPARISON: Abdomen and pelvis CT 10/01/2020. FINDINGS: Right kidney: 10.8 cm. Trace perinephric fluid. A 1.5 cm lower pole cyst. No hydronephrosis. Normal corticomedullary differentiation and cortical thickness. Left kidney: 11.9 cm. No hydronephrosis. Normal corticomedullary differentiation and cortical thickness. Bladder: No bladder wall thickening. The bilateral ureteral jets are not identified. The bladder remains distended demonstrating a postvoid volume of 416 cc. IMPRESSION: 1. No hydronephrosis. 2. Distended bladder with a postvoid volume of 416 cc. This consistent with bladder outlet obstruction. Recommend catheterization. ACT 112: Negative or not required by law. Electronically signed by: Fahad Leon M.D. 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
[2020-10-18] MEDS: METOPROLOL TARTRATE 100 MG TAB PO SCH ×2 (08:14→20:28)
[2020-10-18] MEDS: DOCUSATE SODIUM 100 MG CAP PO SCH ×2 (08:14→20:26)
[2020-10-18] MEDS: hydrALAZINE HCL 25 MG TAB PO SCH ×2 (08:14→20:27)
[2020-10-18] MEDS: FELODIPINE 5 MG TABCR PO SCH (08:14)
[2020-10-18] MEDS: FINASTERIDE 5 MG TAB PO SCH (08:15)
[2020-10-18] MEDS: ISOSORBIDE MONO EXTENDED REL 60 MG TABCR PO SCH (08:15)
[2020-10-18] MEDS: CYANOCOBALAMIN 500 MCG TABLET (VITAMIN B-12) PO SCH (08:15)
[2020-10-18] MEDS: TAMSULOSIN HCL 0.4 MG CAP PO SCH ×2 (08:15→20:31)
[2020-10-18] MEDS: CHOLECALCIFEROL 1,000 UNITS 25 MCG TAB PO SCH (08:15)
[2020-10-18] MEDS: APIXABAN 5 MG TABLET PO SCH ×2 (08:15→20:26)
[2020-10-18] MEDS: INSULIN ASPART 100 UNITS/ML 3 ML PEN SC SCH ×4 (08:17→20:27)
[2020-10-18] MEDS: POLYETHYLENE (MIRALAX) 17 GM PACK PO SCH (08:26)
[2020-10-18] MEDS ORDERED: INSULIN GLARGINE SOLOSTAR 100 UNITS/ML 3 ML PEN SC SCH ×2 (09:00)
--- NOTE | 2020-10-18 09:07 | Urology Consultation ---
Date of Consultation October 18, 2020 Assessment & Plan (1) Bladder outlet obstruction: Severe voiding dysfunction with high PVRs in the setting of CKD and numerous co-morbidities - discussed options - definitely cont meds now - offered catheter - he refused - discussed that if his Cr continues to worsen, a catheter will be necessary, at least on a transient basis - unfortunately, he is not a good candidate for surgery (TURP, etc) at this stage, so meds and catheters may be necessary for the near future - we will observe him for now, per his request, and reassess tomorrow History of Present Illness Attending Physician: Toni Norman MD History of Present Illness 75y/o male w/ a long hx of voiding dysfuncton and BPH currently on max med therapy with flomax and finasteride still with a PVR of 416 on arrival - no hydro (US reviewed) Cr elevated (chronically) - unfortunately, he is quite comorbid with a current DVT and anticoagulation, HOCM, pacer, concern for CVA on arrival (not believed to have occurred) - he reports that he is voiding ok and that he very much prefers to avoid a catheter Allergies Allergy/AdvReac Type Severity Reaction Status Date / Time No Known Allergies Allergy ` Verified 10/16/20 17:10 Home Medications Medication Instructions Recorded Confirmed Type cholecalciferol (vitamin D3) 25 1,000 units PO DAILY #90 cap 09/09/19 10/16/20 Rx mcg (1,000 unit) capsule fenofibrate micronized 67 mg 67 mg PO DAILY #90 cap 12/05/19 10/16/20 Rx capsule felodipine 10 mg tablet,extended 10 mg PO DAILY #90 tab 02/04/20 10/16/20 Rx release 24 hr lisinopril 40 mg tablet 40 mg PO DAILY #90 tab 02/10/20 10/16/20 Rx metoprolol tartrate 100 mg tablet 100 mg PO BID #180 tab 05/11/20 10/16/20 Rx blood sugar diagnostic (OneTouch #100 ea 06/29/20 09/14/20 Rx Ultra Blue Test Strip) apixaban 5 mg tablet (Eliquis) 5 mg PO BID #60 tab 07/13/20 10/16/20 Rx insulin glargine U-300 conc 300 30 unit SUBCUT DAILY ml 04/12/21 07/16/21 History unit/mL (1.5 mL) subcutaneous pen (Toujeo SoloStar U-300 Insulin) simvastatin 10 mg tablet 10 mg PO DAILY #90 tab 08/18/20 10/16/20 Rx solifenacin 10 mg tablet (Vesicare) 10 mg PO DAILY #30 tab 08/19/20 10/16/20 Rx acetaminophen 325 mg tablet 650 mg PO Q4H PRN #30 tab 10/09/20 10/16/20 Rx cyanocobalamin (vitamin B-12) 500 1,000 mcg PO QAM #60 tab 10/09/20 10/16/20 Rx mcg tablet docusate sodium 100 mg capsule 100 mg PO BID #60 cap 10/09/20 10/16/20 Rx finasteride 5 mg tablet (Proscar) 5 mg PO QAM #30 tab 10/09/20 10/16/20 Rx gabapentin 100 mg capsule 100 mg PO TID #90 cap 10/09/20 10/16/20 Rx hydralazine 25 mg tablet 25 mg PO BID #60 tab 10/09/20 10/16/20 Rx isosorbide mononitrate 30 mg 60 mg PO DAILY #60 tab 10/09/20 10/16/20 Rx tablet,extended release 24 hr polyethylene glycol 3350 17 gram 17 g PO DAILY #30 ea 10/09/20 10/16/20 Rx oral powder packet (Miralax) tamsulosin 0.4 mg capsule 0.4 mg PO BID #60 cap 10/09/20 10/16/20 Rx Patient History Medical History Anemia of chronic disease BPH with obstruction/lower urinary tract symptoms CKD (chronic kidney disease) Deep vein thrombosis (DVT) of left lower extremity Diabetes Elevated troponin History of CVA (cerebrovascular accident) Hypertension Hypertriglyceridemia Hypertrophic obstructive cardiomyopathy (HOCM) Low back pain Mobitz (type) II atrioventricular block Proteinuria Sinus node dysfunction Skin carcinoma Spinal stenosis Subclavian vein thromboembolism, acute Syncope and collapse Surgical History H/O arthroscopy of knee History of cataract surgery Status post placement of cardiac pacemaker Family History Mother Ovarian cancer Diabetes Father Diabetes Unknown Coronary heart disease Denies family history of Prostate cancer Myocardial infarction Breast cancer Colorectal cancer Social History Smoking Status: Never smoker Second Hand Exposure: No; Hx Alcohol Use: No Hx Substance Use: No Preferred Language: Monegasque Communication Ability: Effective Senior Database Administrator Required: No Beliefs That Will Affect Care: None marital status: / Current Living Situation: Family Current Living Situation Comment: home with brother, was just discharged from [facility] earlier today current occupational status: retired Feels Safe at Home: Yes Safety Concerns: Feels Safe At This Time Childhood Exposure to Second-Hand Smoke: No caffeine: Yes Dental Care, Regularly: Yes Physical Activity Frequency: 1-2 Times per Week Seatbelt Use: always Sunscreen Use: No Assistive Devices: Glasses and Walker Physical Exam Constitutional: well developed and well nourished Neck: neck nontender Respiratory: normal respiratory effort; no respiratory distress and does not use accessory muscles Cardiovascular: Rate/Rhythm: regular rate Vessels: radial pulses present Extremities: no edema Gastrointestinal (Abdomen): Inspection/Auscultation: abdomen normal to inspection Percussion/Palpation: abdomen soft; abdomen nontender and no guarding Musculoskeletal: Head/Neck/Chest: normocephalic and head atraumatic Extremities: extremities normal to inspection Skin: no rashes and no lesions Trauma: no evidence of skin trauma Neurologic: awake; not obtunded Speech / Cognition: normal speech Motor/Sensory: no tremor Psychiatric: Orientation: alert and oriented x 3 Genitourinary: no CVA tenderness Lymphatic: no lymphadenopathy Results & Data ([facility]) Vital Signs (Past 12 Hours) Vital Signs Temp Pulse Pulse Resp BP Pulse Ox 10/18/20 07:55 36.7 C 63 18 147/74 H 94 10/18/20 07:18 57 L 10/18/20 02:48 36.6 C 60 19 142/63 H 98 10/18/20 00:00 55 L 10/17/20 22:12 36.7 C 70 18 161/73 H 97 PG Care Time/CCT Total # of Minutes Spent Total Time Spent with Patient: Total time spent is greater than 50% in coordination of care (as documented) at patient's floor/unit and/or counseling patient: Coding Level of Care Code 69247 Inpt Consult Level 4 Diagnoses Bladder outlet obstruction N32.0
[2020-10-18] MEDS ORDERED: lisinopril 40 MG TAB PO ONE (10:32)
--- NOTE | 2020-10-18 10:32 | Pharmacy Report ---
Pharmacy Glycemic Short Note 2 - Date of Service October 18, 2020 - Glycemic Short BSG Results (Last 24 hours): 10/17/20 10/17/20 10/17/20 12:00 17:11 20:20 Glucose POC Glucose 116 H 98 111 H 10/18/20 10/18/20 10/18/20 03:36 07:28 07:30 Glucose 55 L POC Glucose 67 L* 84 OUTPATIENT ANTIDIABETIC REGIMEN: * Toujeo 30 units SQ Daily (Patient reduced dose from 50 units recently d/t hypoglycemia at home) * A1c 5.8% 10/02/20 ASSESSMENT: 10/18/20 * Pt has received 21 units of insulin over the past 24hrs * 12 units of basal with Lantus * 9 units of bolus with NovoLog * BSGs 55-136 mg/dl * Fasting blood sugar 55mg/dl - decrease Lantus again, started at less than half of home dose, will reduce in half again * No other changes at this time * Urology consult, bladder outlet obstruction, high SCr, not a good candidate for surgery, medications and catheters may be necessary for the near future 10/17/20 * 75 year old male admitted with stroke like symptoms, CVA ruled out. * Blood sugars 60mg/dl this morning, begin basal at reduced dose and loose CF/CR and higher goal range to prevent hypoglycemia. PLAN FOR INPATIENT GLYCEMIC CONTROL: * Basal insulin -decrease * Lantus 6 units SQ daily * Bolus insulin * NovoLog per scale ACHS or Q6hrs while NPO * Goal Range: Low 120 mg/dL - High 150 mg/dL - higher for recent hypoglycemia episodes * Correction Factor: 30 mg/dL/unit * Nutritional / Prandial insulin per carb ratio of 1 unit per 10 grams CHO consumed PLAN FOR DISCHARGE: * to be determined, likely need less insulin, pt did recently decrease home dose d/t hypoglycemia
--- NOTE | 2020-10-18 12:53 | XCELERA ---
[id number]
[2020-10-18] MEDS: ATORVASTATIN 40 MG TAB PO SCH (20:26)
--- NOTE | 2020-10-19 08:47 | Hospitalist Progress Note ---
Date of Service October 19, 2020 Assessment & Plan (1) Weakness: Plan: Transient episode of slurred speech following discharge from [place] for rehab from prior hospitalization for weakness earlier this month, possibly brain TIA Stroke alert called -- no acute stroke identified Symptoms resolved --> Lipitor 40mg HS Eliquis and continued 81mg ASA daily persistent troponin eleveation no acs, Repeat ECHO pending- hx HOCM and LVOT obstruction and will repeat limited ECHO Repeat US Venous Doppler given 6months on eliquis and continued swelling/weakness --> non-occlusive likely chronic thrombus and would continue Eliquis indefinitely== No prior insult but did UA without infection Pacer interrogation without abn Lyme negative CT Lumbar spine with worsening of severe spinal stenosis, most prominent at level L3-L4, L4-L5 Orthopedics consulted, Dr Sanchez --suspect most of patient LE weakness from his back, however patient wanting to hold of on intervention at this time, comfortable at rest. --> Can have follow up if progresses/per patient wishes PT/OT evals rec rehab-- patient would like [facility] if possible at d/c. CM following Holding gabapentin (new medication since last admission for his neuropathy) -- no increased neuropathy reported (2) Neurogenic claudication due to lumbar spinal stenosis: Plan: Severe multilevel degenerative changes within the lumbar spine. Suboptimal evaluation of the central canal and neural foramen given CT technique. However, severe central stenosis at L4-L5 and probable severe central canal stenosis at L3-L4. There are multilevel neural foraminal stenosis. 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 Had been on 51u in the past (given at night) and he backed himself down to 30U due to frequent hypoglycemia A1c only 5.8 Pharmacy consulted -- again low this morning ISS while inpatient Suspect decreased needs at discharge Continue to monitor baseline Cr 2.5, discussed with Dr Espinoza and would continue his lisinopril (5) Brain TIA: Plan: Suspected on admission, but resolution of symptoms without recurrance-- see above ASA 81mg daily, added Lipitor 40mg would continue this at discharge (6) Anemia of chronic disease: Plan: Normocytic B12 deficiency and on supplementation -- B12 level actually elevated. Iron 81, TIBC 253, transferrin 222, trans % sat 26, ferritin 347 (7) Status post placement of cardiac pacemaker: Plan: pacemaker interrogation ordered as above (8) Deep vein thrombosis (DVT) of left lower extremity: Plan: chronic Eliquis Repeat Venous Doppler -- chronic non-occlusive Continue Eliquis indefinitely (9) Elevated troponin: Plan: Trop 0.06 on admission --> increased to 0.117 (no CP/sob reported), trending down on repeat but still 0.107 Had elevations last admission up to 0.198 as wel and was 0.156 prior to discharge ECHO nl EF mod to severe lvh, no rwma Admission and Anticipated Discharge Date Admission Date: October 17, 2020 Subjective pt is awake and alert, hopeful for rehab, states he feels he is urinating freely and has limited back pain but is weak with walking Review of Systems Review of Systems: Mild distress and fatigue no headache, no visual changes no speech or swallowing issues no chest pain, pressure or palpitations alva, cough or wheezes no abdominal pain, nausea or vomiting, diarrhea or constipation no dysuria, hematuria or frequency back pain without radicular symptoms no , CVA tenderness no bruising, bleeding or rashes no focal signs of weakness or numbness or altered sensation no complaints of anxiety or depression. Physical Exam Physical Exam: The patient appeared chronically ill but stable Vital signs as documented. Head exam is normocephalic atraumatic Neck is without JVD, thyromegaly, or carotid bruits. Lungs are clear to auscultation, no focal loss of breath sounds Cardiac exam, Rhythm is regular.. No murmurs, rubs or gallops. Abdominal exam reveals normal bowel sounds, soft non tender, no masses Extremities are nonedematous and both pedal pulses are present Neurologic exam is alert and oriented, no focal loss of strength or sensation Skin is without bruises or rashes Psychologically is without concerns for anxiety or depression Results & Data Results & Data ([facility]) Vital Signs (Past 12 Hours) Vital Signs Temp Pulse Pulse Resp BP Pulse Ox 10/19/20 07:00 97.9 F 70 18 147/68 H 97 10/19/20 03:43 97.5 F L 54 L 18 126/67 99 10/18/20 22:42 57 L 10/18/20 22:33 97.9 F 63 18 147/71 H 98 PG Care Time/CCT Total # of Minutes Spent Total Time Spent with Patient: Total time spent is greater than 50% in coordination of care (as documented) at patient's floor/unit and/or counseling patient: Coding Level of Care Code 91277 Subseq Hosp Care Lvl 3 Diagnoses Weakness R53.1 Neurogenic claudication due to lumbar spinal stenosis M48.062 Bladder outlet obstruction N32.0 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
[2020-10-19] MEDS: INSULIN ASPART 100 UNITS/ML 3 ML PEN SC SCH ×4 (08:48→20:10)
[2020-10-19] MEDS: APIXABAN 5 MG TABLET PO SCH ×2 (08:49→20:23)
[2020-10-19] MEDS: CHOLECALCIFEROL 1,000 UNITS 25 MCG TAB PO SCH (08:50)
[2020-10-19] MEDS: DOCUSATE SODIUM 100 MG CAP PO SCH ×2 (08:50→20:23)
[2020-10-19] MEDS: CYANOCOBALAMIN 500 MCG TABLET (VITAMIN B-12) PO SCH (08:50)
[2020-10-19] MEDS: FINASTERIDE 5 MG TAB PO SCH (08:51)
[2020-10-19] MEDS: hydrALAZINE HCL 25 MG TAB PO SCH ×2 (08:51→20:23)
[2020-10-19] MEDS: FELODIPINE 5 MG TABCR PO SCH (08:51)
[2020-10-19] MEDS: ISOSORBIDE MONO EXTENDED REL 60 MG TABCR PO SCH (08:51)
[2020-10-19] MEDS: lisinopril 40 MG TAB PO SCH (08:52)
[2020-10-19] MEDS: TAMSULOSIN HCL 0.4 MG CAP PO SCH ×2 (08:52→20:23)
[2020-10-19] MEDS: METOPROLOL TARTRATE 100 MG TAB PO SCH ×2 (08:52→20:24)
[2020-10-19] MEDS: POLYETHYLENE (MIRALAX) 17 GM PACK PO SCH (08:53)
[2020-10-19 09:20] LABS: Hematocrit (blood only) 30.4 % (42-52); Hemoglobin 10.1 g/dL (14.0-18.0); Mean Corpuscular Hgb Conc 33.2 g/dL (32-36); Mean Corpuscular Volume 93.3 fL (80-100); Mean Platelet Volume 10.3 fL (7.4-10.4); Platelet Count 157 K/uL (130-400); RDW Coefficient of Variation 14.1 % (11.5-14.5); RDW Standard Deviation 48.1 fL (36.4-46.3); Red Blood Count 3.26 M/uL (4.7-6.1); White Blood Count 3.69 K/uL (4.8-10.8)
[2020-10-19 10:00] LABS: BUN Creatinine Ratio 26.2 (10-20); Calcium 8.9 mg/dl (8.5-10.1); Est GFR (African American) 24.3 ml/min; Potassium 4.3 mmol/L (3.5-5.1)
--- NOTE | 2020-10-19 10:24 | Urology Progress Note ---
Date of Service October 19, 2020 Assessment & Plan (1) Bladder outlet obstruction: Plan: 75yo M with CKD and numerous other co-morbidities admitted with weakness - Hx of voiding dysfunction and BPH on max med therapy with flomax and finasteride - Renal ultrasound on arrival with no hydronephrosis and PVR 416ml. - He is afebrile, VSS. - Labs reviewed, Wbc stable and creatinine 2.80 (previously 2.76) - Will continue to trend. - Voiding in urinal - Output appears adequate. - Recommend bladder scan/PVR after next void, straight cath if >300ml. - Pt prefers to avoid catheter if possible, however discussed that if his Cr continues to worsen, a catheter will be necessary, at least on a transient basis. - Continue flomax and finasteride - Will continue to follow Admission and Anticipated Discharge Date Admission Date: October 17, 2020 Subjective Pt examined at bedside this AM. Awake, resting in bed on arrival. He denies back, flank, and suprapubic pain at present. No fevers or chills. Denies nausea and vomiting. Voiding in urinal, last void this morning 350ml. Denies hematuria and dysuria. He reports urinary urgency, denies frequency. Feels he is emptying his bladder. No need to push/strain. Continues on flomax and finasteride. Patient feels he is voiding ok and that he prefers to avoid a catheter at this time. No additional complaints at this time Review of Systems Constitutional: as per Subjective / HPI Gastrointestinal: as per Subjective / HPI Genitourinary: + as per Subjective / HPI Physical Exam Constitutional: well developed and well nourished; no acute distress Respiratory: normal respiratory effort; no labored breathing Cardiovascular: Extremities: no calf tenderness Gastrointestinal (Abdomen): Percussion/Palpation: abdomen soft; abdomen nontender and no guarding Musculoskeletal: Head/Neck/Chest: normocephalic Skin: Warm and dry Neurologic: awake Psychiatric: Orientation: alert, oriented x 3 and cooperative Genitourinary: no CVA tenderness Results & Data ([facility]) Vital Signs (Past 12 Hours) Vital Signs Temp Pulse Pulse Resp BP Pulse Ox 10/19/20 07:00 36.6 C 70 18 147/68 H 97 10/19/20 03:43 36.4 C L 54 L 18 126/67 99 10/18/20 22:42 57 L 10/18/20 22:33 36.6 C 63 18 147/71 H 98 PG Care Time/CCT Total # of Minutes Spent Total Time Spent with Patient: Total time spent is greater than 50% in coordination of care (as documented) at patient's floor/unit and/or counseling patient: Coding Level of Care Code 16970 Subseq Hosp Care Lvl 2 Diagnoses Bladder outlet obstruction N32.0
[2020-10-19 18:48] LABS: Appearance Urine Clear (Clear); Bacteria Urine Automated Negative (Negative); Bilirubin Urine Negative (Negative); Blood Urine Negative (Negative); Color Urine Yellow; Epithelial Cell Urine Auto 0-5 /lpf (0-5); Glucose Urine UA Negative (Negative); Ketones Urine Negative (Negative); Leukocyte Esterase Urine Negative (Negative); Nitrite Urine Negative (Negative); Protein Urine 1+ (Negative); RBC Urine Automated 0-4 /hpf (0-4); Specific Gravity Urine 1.019 (1.000-1.030); Urobilinogen Urine Negative (Negative)
[2020-10-19] MEDS: ATORVASTATIN 40 MG TAB PO SCH (20:23)
[2020-10-20 06:58] LABS: Hematocrit (blood only) 30.5 % (42-52); Mean Corpuscular Hemoglobin 30.8 pg (25-34); Mean Corpuscular Hgb Conc 32.8 g/dL (32-36); Mean Corpuscular Volume 93.8 fL (80-100); Mean Platelet Volume 10.1 fL (7.4-10.4); Platelet Count 156 K/uL (130-400); RDW Coefficient of Variation 13.9 % (11.5-14.5); RDW Standard Deviation 48.1 fL (36.4-46.3); Red Blood Count 3.25 M/uL (4.7-6.1); White Blood Count 3.93 K/uL (4.8-10.8)
[2020-10-20 07:29] LABS: BUN Creatinine Ratio 29.3 (10-20); Creatinine Clr Calc Pharmacy 27.1 ml/min; Est GFR (African American) 25.4 ml/min; Est GFR (Non-African American) 21.9 ml/min; Potassium 4.1 mmol/L (3.5-5.1)
[2020-10-20] MEDS: INSULIN ASPART 100 UNITS/ML 3 ML PEN SC SCH ×4 (08:48→21:55)
[2020-10-20] MEDS: DOCUSATE SODIUM 100 MG CAP PO SCH ×2 (08:50→20:06)
[2020-10-20] MEDS: POLYETHYLENE (MIRALAX) 17 GM PACK PO SCH (08:51)
[2020-10-20] MEDS: FINASTERIDE 5 MG TAB PO SCH (08:54)
[2020-10-20] MEDS: CYANOCOBALAMIN 500 MCG TABLET (VITAMIN B-12) PO SCH (08:54)
[2020-10-20] MEDS: FELODIPINE 5 MG TABCR PO SCH (08:54)
[2020-10-20] MEDS: hydrALAZINE HCL 25 MG TAB PO SCH ×2 (08:54→20:05)
[2020-10-20] MEDS: APIXABAN 5 MG TABLET PO SCH ×2 (08:54→20:04)
[2020-10-20] MEDS: CHOLECALCIFEROL 1,000 UNITS 25 MCG TAB PO SCH (08:54)
[2020-10-20] MEDS: ISOSORBIDE MONO EXTENDED REL 60 MG TABCR PO SCH (08:55)
[2020-10-20] MEDS: METOPROLOL TARTRATE 100 MG TAB PO SCH ×2 (08:55→20:06)
[2020-10-20] MEDS: TAMSULOSIN HCL 0.4 MG CAP PO SCH ×2 (08:55→20:05)
[2020-10-20] MEDS: lisinopril 40 MG TAB PO SCH (08:55)
--- NOTE | 2020-10-20 10:56 | Urology Progress Note ---
Date of Service October 20, 2020 Assessment & Plan (1) Bladder outlet obstruction: Plan: 75yo M with CKD and numerous other co-morbidities admitted with weakness - Hx of voiding dysfunction and BPH on max med therapy with flomax and finasteride - Afebrile, VSS. - Labs reviewed, creatinine 2.7 today (2.8 yesterday). - Voiding in urinal without difficulty- Output appears adequate. - PVR yesterday was 210ml. - Recommend continue to monitor urine output -Bladder scan as needed, straight cath if >300ml. - Will avoid catheter at this time per patients request. If his Cr would worsen, a catheter may be necessary. - Continue flomax and finasteride. - Will arrange outpatient follow-up with urology following discharge. - Thank you for allowing us to participate in the acute care of Mr. Larkin. Please reconsult us with additional questions, concerns or changes in patient status. Admission and Anticipated Discharge Date Admission Date: October 17, 2020 Subjective Pt examined at bedside this afternoon. Sitting in bedside chair on arrival. He denies back, flank, and suprapubic pain at present. No fevers or chills. Denies nausea and vomiting. Voiding in urinal. Denies hematuria and dysuria. He reports urinary urgency. Feels he is emptying his bladder. No need to push/strain. Continues on flomax and finasteride. Chart review: Urine output overnight - 575ml Pt voided 175ml yesterday then bladder scanned for PVR of 210ml. No additional complaints at this time Review of Systems Constitutional: as per Subjective / HPI Gastrointestinal: as per Subjective / HPI Genitourinary: + as per Subjective / HPI Physical Exam Constitutional: well developed and well nourished; no acute distress Respiratory: normal respiratory effort; no labored breathing Cardiovascular: Extremities: no calf tenderness Gastrointestinal (Abdomen): Percussion/Palpation: abdomen soft; abdomen nontender and no guarding Musculoskeletal: Head/Neck/Chest: normocephalic Skin: Warm and dry Neurologic: awake Psychiatric: Orientation: alert, oriented x 3 and cooperative Genitourinary: no CVA tenderness Results & Data ([facility]) Vital Signs (Past 12 Hours) Vital Signs Temp Pulse Pulse Resp BP Pulse Ox 10/20/20 07:27 50 L 10/20/20 03:24 36.6 C 50 L 16 131/70 97 07/20/21 01:01 50 L 10/19/20 23:41 36.7 C 59 L 18 150/67 H 97 PG Care Time/CCT Total # of Minutes Spent Total Time Spent with Patient: Total time spent is greater than 50% in coordination of care (as documented) at patient's floor/unit and/or counseling patient: Coding Level of Care Code 58742 Subseq Hosp Care Lvl 2 Diagnoses Bladder outlet obstruction N32.0
--- NOTE | 2020-10-20 11:34 | Pharmacy Report ---
Pharmacy Glycemic Short Note 2 - Date of Service October 20, 2020 - Glycemic Short BSG Results (Last 24 hours): 10/19/20 10/19/20 10/19/20 11:42 16:37 20:07 Glucose POC Glucose 115 H 146 H 139 H 10/20/20 10/20/20 10/20/20 06:36 07:39 11:20 Glucose 79 POC Glucose 87 183 H OUTPATIENT ANTIDIABETIC REGIMEN: * Toujeo 30 units SQ Daily (Patient reduced dose from 50 units recently d/t hypoglycemia at home) * A1c 5.8% 10/02/20 ASSESSMENT: 10/20/20 * Patient's BSGs yesterday were [phone] mg/dL. Patient received 13 units of basal. * Fasting this morning was 81 mg/dL. Continue to hold Lantus. * Patient does have ÁLVAREZ and creatinine is currently 2.70 mg/dL (higher than baseline). * Tightened up Novolog yesterday since lantus d/c'ed. Lunch BSG elevated but will continue tightened Novolog for now. 10/18/20 * Pt has received 21 units of insulin over the past 24hrs * 12 units of basal with Lantus * 9 units of bolus with NovoLog * BSGs 55-136 mg/dl * Fasting blood sugar 55mg/dl - decrease Lantus again, started at less than half of home dose, will reduce in half again * No other changes at this time * Urology consult, bladder outlet obstruction, high SCr, not a good candidate for surgery, medications and catheters may be necessary for the near future 10/17/20 * 75 year old male admitted with stroke like symptoms, CVA ruled out. * Blood sugars 60mg/dl this morning, begin basal at reduced dose and loose CF/CR and higher goal range to prevent hypoglycemia. PLAN FOR INPATIENT GLYCEMIC CONTROL: * Basal insulin -hold * Bolus insulin * NovoLog per scale ACHS or Q6hrs while NPO * Goal Range: Low 120 mg/dL - High 150 mg/dL - higher for recent hypoglycemia episodes * Correction Factor: 25 mg/dL/unit * Nutritional / Prandial insulin per carb ratio of 1 unit per 7 grams CHO consumed PLAN FOR DISCHARGE: * to be determined, will await resolution of BRIANNA
--- NOTE | 2020-10-20 14:09 | Hospitalist Progress Note ---
Date of Service October 20, 2020 Assessment & Plan (1) Weakness: Plan: Transient episode of slurred speech following discharge from [place] for rehab from prior hospitalization for weakness earlier this month, possibly brain TIA Stroke alert called -- no acute stroke identified Symptoms resolved --> Lipitor 40mg HS Eliquis and continued 81mg ASA daily persistent troponin elevation no acs, Repeat ECHO pending- hx HOCM and LVOT obstruction and will repeat limited ECHO Repeat US Venous Doppler given 6months on eliquis and continued swelling/weakness --> non-occlusive likely chronic thrombus and would continue Eliquis indefinitely== No prior insult but did UA without infection Pacer interrogation without abn Lyme negative CT Lumbar spine with worsening of severe spinal stenosis, most prominent at level L3-L4, L4-L5 Orthopedics consulted, Dr Sanchez --suspect most of patient LE weakness from his back, however patient wanting to hold of on intervention at this time, comfortable at rest. --> Can have follow up if progresses/per patient wishes PT/OT evals rec rehab-- patient would like [facility] if possible at d/c. CM following Holding gabapentin (new medication since last admission for his neuropathy) -- no increased neuropathy reported (2) Neurogenic claudication due to lumbar spinal stenosis: Plan: Severe multilevel degenerative changes within the lumbar spine. Suboptimal evaluation of the central canal and neural foramen given CT technique. However, severe central stenosis at L4-L5 and probable severe central canal stenosis at L3-L4. There are multilevel neural foraminal stenosis. 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 Had been on 51u in the past (given at night) and he backed himself down to 30U due to frequent hypoglycemia A1c only 5.8 Pharmacy consulted [facility] while inpatient Suspect decreased needs at discharge Continue to monitor at baseline Cr 2.5, discussed with Dr Espinoza and would continue his lisinopril (5) Brain TIA: Plan: Suspected on admission, but resolution of symptoms without recurrance-- see above ASA 81mg daily, added Lipitor 40mg would continue this at discharge (6) Anemia of chronic disease: Plan: Normocytic B12 deficiency and on supplementation -- B12 level actually elevated. Iron 81, TIBC 253, transferrin 222, trans % sat 26, ferritin 347 (7) Status post placement of cardiac pacemaker: Plan: pacemaker interrogation ordered as above (8) Deep vein thrombosis (DVT) of left lower extremity: Plan: chronic Eliquis Repeat Venous Doppler -- chronic non-occlusive Continue Eliquis indefinitely (9) Elevated troponin: Plan: Trop 0.06 on admission --> increased to 0.117 (no CP/sob reported), trending down on repeat but still 0.107 Had elevations last admission up to 0.198 as wel and was 0.156 prior to discharge ECHO nl EF mod to severe lvh, no rwma Plan: Medically stable for discharge pending placement Admission and Anticipated Discharge Date Admission Date: October 17, 2020 Subjective No acute events overnight. Seen walking around the stern. Medically stable for discharge pending placement from prior provider. Physical Exam Constitutional: WD/WN, vitals as above Respiratory: normal respiratory effort Musculoskeletal: no cyanosis or clubbing, extremities motor strength 5/5 Skin: no rashes, warm and dry Neurologic: moves all extremities and awake; not confused Psychiatric: Orientation: alert Results & Data Results & Data ([facility]) Vital Signs (Past 12 Hours) Vital Signs Temp Pulse Pulse Resp BP BP Pulse Ox 10/20/20 11:09 36.8 C 52 L 20 113/64 96 10/20/20 07:55 36.7 C 55 L 20 142/74 H 97 10/20/20 07:27 50 L 10/20/20 03:24 36.6 C 50 L 16 131/70 97 PG Care Time/CCT Total # of Minutes Spent Total Time Spent with Patient: Total time spent is greater than 50% in coordination of care (as documented) at patient's floor/unit and/or counseling patient: Coding Level of Care Code 09223 Subseq Hosp Care Lvl 1 Diagnoses Weakness R53.1 Neurogenic claudication due to lumbar spinal stenosis M48.062 Bladder outlet obstruction N32.0 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
[2020-10-20] MEDS: ATORVASTATIN 40 MG TAB PO SCH (20:05)
[2020-10-21 06:56] LABS: Hematocrit (blood only) 30.8 % (42-52); Hemoglobin 10.6 g/dL (14.0-18.0); Mean Corpuscular Hgb Conc 34.4 g/dL (32-36); Mean Corpuscular Volume 93.1 fL (80-100); Mean Platelet Volume 10.2 fL (7.4-10.4); Platelet Count 157 K/uL (130-400); RDW Coefficient of Variation 13.8 % (11.5-14.5); RDW Standard Deviation 47.7 fL (36.4-46.3); Red Blood Count 3.31 M/uL (4.7-6.1); White Blood Count 3.57 K/uL (4.8-10.8)
[2020-10-21 07:26] LABS: BUN Creatinine Ratio 30.3 (10-20); Creatinine Clr Calc Pharmacy 30.9 ml/min; Est GFR (Non-African American) 25.9 ml/min; Potassium 4.1 mmol/L (3.5-5.1)
[2020-10-21] MEDS: INSULIN ASPART 100 UNITS/ML 3 ML PEN SC SCH ×4 (08:38→22:29)
[2020-10-21] MEDS: METOPROLOL TARTRATE 100 MG TAB PO SCH ×3 (08:40→22:28)
[2020-10-21] MEDS: POLYETHYLENE (MIRALAX) 17 GM PACK PO SCH (08:40)
[2020-10-21] MEDS: hydrALAZINE HCL 25 MG TAB PO SCH ×2 (08:42→22:29)
[2020-10-21] MEDS: FELODIPINE 5 MG TABCR PO SCH (08:42)
[2020-10-21] MEDS: CHOLECALCIFEROL 1,000 UNITS 25 MCG TAB PO SCH (08:42)
[2020-10-21] MEDS: DOCUSATE SODIUM 100 MG CAP PO SCH ×2 (08:42→22:28)
[2020-10-21] MEDS: CYANOCOBALAMIN 500 MCG TABLET (VITAMIN B-12) PO SCH (08:42)
[2020-10-21] MEDS: APIXABAN 5 MG TABLET PO SCH ×2 (08:42→22:28)
[2020-10-21] MEDS: FINASTERIDE 5 MG TAB PO SCH (08:42)
[2020-10-21] MEDS: TAMSULOSIN HCL 0.4 MG CAP PO SCH ×2 (08:43→22:28)
[2020-10-21] MEDS: lisinopril 40 MG TAB PO SCH (08:43)
[2020-10-21] MEDS: ISOSORBIDE MONO EXTENDED REL 60 MG TABCR PO SCH (08:43)
--- NOTE | 2020-10-21 22:13 | Hospitalist Progress Note ---
Date of Service October 21, 2020 Assessment & Plan (1) Weakness: Plan: Transient episode of slurred speech following discharge from [place] for rehab from prior hospitalization for weakness earlier this month, possibly brain TIA Stroke alert called -- no acute stroke identified Symptoms resolved --> Lipitor 40mg HS Eliquis and continued 81mg ASA daily persistent troponin elevation no acs, Repeat ECHO pending- hx HOCM and LVOT obstruction and will repeat limited ECHO Repeat US Venous Doppler given 6months on eliquis and continued swelling/weakness --> non-occlusive likely chronic thrombus and would continue Eliquis indefinitely== No prior insult but did UA without infection Pacer interrogation without abn Lyme negative CT Lumbar spine with worsening of severe spinal stenosis, most prominent at level L3-L4, L4-L5 Orthopedics consulted, Dr Sanchez --suspect most of patient LE weakness from his back, however patient wanting to hold of on intervention at this time, comfortable at rest. --> Can have follow up if progresses/per patient wishes PT/OT evals rec rehab-- patient would like [facility] if possible at d/c. CM following Holding gabapentin (new medication since last admission for his neuropathy) -- no increased neuropathy reported (2) Neurogenic claudication due to lumbar spinal stenosis: Plan: Severe multilevel degenerative changes within the lumbar spine. Suboptimal evaluation of the central canal and neural foramen given CT technique. However, severe central stenosis at L4-L5 and probable severe central canal stenosis at L3-L4. There are multilevel neural foraminal stenosis. 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 Had been on 51u in the past (given at night) and he backed himself down to 30U due to frequent hypoglycemia A1c only 5.8 Pharmacy consulted [facility] while inpatient Suspect decreased needs at discharge Continue to monitor at baseline Cr 2.5, discussed with Dr Espinoza and would continue his lisinopril (5) Brain TIA: Plan: Suspected on admission, but resolution of symptoms without recurrance-- see above ASA 81mg daily, added Lipitor 40mg would continue this at discharge (6) Anemia of chronic disease: Plan: Normocytic B12 deficiency and on supplementation -- B12 level actually elevated. Iron 81, TIBC 253, transferrin 222, trans % sat 26, ferritin 347 (7) Status post placement of cardiac pacemaker: Plan: pacemaker interrogation ordered as above (8) Deep vein thrombosis (DVT) of left lower extremity: Plan: chronic Eliquis Repeat Venous Doppler -- chronic non-occlusive Continue Eliquis indefinitely (9) Elevated troponin: Plan: Trop 0.06 on admission --> increased to 0.117 (no CP/sob reported), trending down on repeat but still 0.107 Had elevations last admission up to 0.198 as wel and was 0.156 prior to discharge ECHO nl EF mod to severe lvh, no rwma Plan: Medically stable for discharge pending placement Admission and Anticipated Discharge Date Admission Date: October 17, 2020 Subjective No acute events overnight. No questions or concerns. Medically stable for discharge pending placement. Review of Systems Review of Systems: All systems reviewed & are unremarkable except as noted in HPI & below Physical Exam Constitutional: WD/WN, vitals as above Respiratory: normal respiratory effort Musculoskeletal: no cyanosis or clubbing, extremities motor strength 5/5 Skin: no rashes, warm and dry Neurologic: moves all extremities and awake; not confused Psychiatric: Orientation: alert Results & Data Results & Data ([facility]) Vital Signs (Past 12 Hours) Vital Signs Temp Pulse Pulse Resp BP Pulse Ox 10/21/20 19:00 36.3 C L 54 L 16 144/62 H 97 10/21/20 15:49 50 L 10/21/20 15:11 36.4 C L 50 L 20 99/61 L 98 10/21/20 11:17 37.0 C 48 L 20 99/59 L 98 PG Care Time/CCT Total # of Minutes Spent Total Time Spent with Patient: Total time spent is greater than 50% in coordination of care (as documented) at patient's floor/unit and/or counseling patient: Coding Level of Care Code 56702 Subseq Hosp Care Lvl 1 Diagnoses Weakness R53.1 Neurogenic claudication due to lumbar spinal stenosis M48.062 Bladder outlet obstruction N32.0 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
[2020-10-21] MEDS: ATORVASTATIN 40 MG TAB PO SCH (22:28)
[2020-10-22 06:25] LABS: Hematocrit (blood only) 31.1 % (42-52); Hemoglobin 10.4 g/dL (14.0-18.0); Mean Corpuscular Hemoglobin 31.1 pg (25-34); Mean Corpuscular Hgb Conc 33.4 g/dL (32-36); Mean Corpuscular Volume 93.1 fL (80-100); Mean Platelet Volume 10.3 fL (7.4-10.4); Platelet Count 161 K/uL (130-400); RDW Coefficient of Variation 13.9 % (11.5-14.5); RDW Standard Deviation 47.7 fL (36.4-46.3); Red Blood Count 3.34 M/uL (4.7-6.1); White Blood Count 3.73 K/uL (4.8-10.8)
[2020-10-22 06:52] LABS: Calcium 9.1 mg/dl (8.5-10.1); Potassium 4.1 mmol/L (3.5-5.1)
[2020-10-22 07:15] LABS: Creatinine Clr Calc Pharmacy 31.9 ml/min
[2020-10-22 07:21] LABS: BUN Creatinine Ratio 30.1 (10-20); Est GFR (African American) 30.8 ml/min; Est GFR (Non-African American) 26.6 ml/min
[2020-10-22] MEDS: CHOLECALCIFEROL 1,000 UNITS 25 MCG TAB PO SCH (08:02)
[2020-10-22] MEDS: APIXABAN 5 MG TABLET PO SCH ×2 (08:02→20:05)
[2020-10-22] MEDS: hydrALAZINE HCL 25 MG TAB PO SCH ×2 (08:03→20:05)
[2020-10-22] MEDS: CYANOCOBALAMIN 500 MCG TABLET (VITAMIN B-12) PO SCH (08:03)
[2020-10-22] MEDS: FINASTERIDE 5 MG TAB PO SCH (08:03)
[2020-10-22] MEDS: DOCUSATE SODIUM 100 MG CAP PO SCH ×2 (08:03→20:05)
[2020-10-22] MEDS: FELODIPINE 5 MG TABCR PO SCH (08:03)
[2020-10-22] MEDS: lisinopril 40 MG TAB PO SCH (08:04)
[2020-10-22] MEDS: ISOSORBIDE MONO EXTENDED REL 60 MG TABCR PO SCH (08:04)
[2020-10-22] MEDS: TAMSULOSIN HCL 0.4 MG CAP PO SCH ×2 (08:04→20:05)
[2020-10-22] MEDS: METOPROLOL TARTRATE 100 MG TAB PO SCH ×2 (08:04→20:05)
[2020-10-22] MEDS: INSULIN ASPART 100 UNITS/ML 3 ML PEN SC SCH ×4 (08:47→20:43)
[2020-10-22] MEDS: POLYETHYLENE (MIRALAX) 17 GM PACK PO SCH (08:49)
--- NOTE | 2020-10-22 13:28 | Pharmacy Report ---
Pharmacy Glycemic Short Note 2 - Date of Service October 22, 2020 - Glycemic Short BSG Results (Last 24 hours): 10/21/20 10/21/20 10/22/20 16:22 19:56 05:58 Glucose 89 POC Glucose 123 H 145 H 10/22/20 10/22/20 07:41 11:54 Glucose POC Glucose 111 H 155 H OUTPATIENT ANTIDIABETIC REGIMEN: * Toujeo 30 units SQ Daily (Patient reduced dose from 50 units recently d/t hypoglycemia at home) * A1c 5.8% 10/02/20 ASSESSMENT: 10/21/20 * Patient's BSGs yesterday were [phone] mg/dL. Patient received 14 units of basal. * Fasting this morning was 89 mg/dL. Continue to hold Lantus. * Kidney function improved * Postprandial BSGs well controlled. Continue Novolog. 10/20/20 * Patient's BSGs yesterday were [phone] mg/dL. Patient received 13 units of basal. * Fasting this morning was 81 mg/dL. Continue to hold Lantus. * Patient does have ÁLVAREZ and creatinine is currently 2.70 mg/dL (higher than baseline). * Tightened up Novolog yesterday since lantus d/c'ed. Lunch BSG elevated but will continue tightened Novolog for now. 10/18/20 * Pt has received 21 units of insulin over the past 24hrs * 12 units of basal with Lantus * 9 units of bolus with NovoLog * BSGs 55-136 mg/dl * Fasting blood sugar 55mg/dl - decrease Lantus again, started at less than half of home dose, will reduce in half again * No other changes at this time * Urology consult, bladder outlet obstruction, high SCr, not a good candidate for surgery, medications and catheters may be necessary for the near future 10/17/20 * 75 year old male admitted with stroke like symptoms, CVA ruled out. * Blood sugars 60mg/dl this morning, begin basal at reduced dose and loose CF/CR and higher goal range to prevent hypoglycemia. PLAN FOR INPATIENT GLYCEMIC CONTROL: * Basal insulin -hold * Bolus insulin * NovoLog per scale ACHS or Q6hrs while NPO * Goal Range: Low 120 mg/dL - High 150 mg/dL - higher for recent hypoglycemia episodes * Correction Factor: 30 mg/dL/unit * Nutritional / Prandial insulin per carb ratio of 1 unit per 7 grams CHO consumed PLAN FOR DISCHARGE: * Patient has not required basal insulin while hospitalized. Only Novolog. * Reasonable to consider Novolog at discharge with about 5 units per meal.
[2020-10-22] MEDS: ATORVASTATIN 40 MG TAB PO SCH (20:05)
--- NOTE | 2020-10-22 22:28 | Hospitalist Progress Note ---
Date of Service October 22, 2020 Assessment & Plan (1) Weakness: Plan: Transient episode of slurred speech following discharge from [place] for rehab from prior hospitalization for weakness earlier this month, possibly brain TIA Stroke alert called -- no acute stroke identified Symptoms resolved --> Lipitor 40mg HS Eliquis and continued 81mg ASA daily persistent troponin elevation no acs, Repeat ECHO unremarkable Repeat US Venous Doppler given 6months on eliquis and continued swelling/weakness --> non-occlusive likely chronic thrombus and would continue Eliquis indefinitely== No prior insult but did UA without infection Pacer interrogation without abn Lyme negative CT Lumbar spine with worsening of severe spinal stenosis, most prominent at level L3-L4, L4-L5 Orthopedics consulted, Dr Sanchez --suspect most of patient LE weakness from his back, however patient wanting to hold of on intervention at this time, comfortable at rest. --> Can have follow up if progresses/per patient wishes PT/OT evals rec rehab-- patient would like [facility] if possible at d/c. following Holding gabapentin (new medication since last admission for his neuropathy) -- no increased neuropathy reported (2) Neurogenic claudication due to lumbar spinal stenosis: Plan: Severe multilevel degenerative changes within the lumbar spine. Suboptimal evaluation of the central canal and neural foramen given CT technique. However, severe central stenosis at L4-L5 and probable severe central canal stenosis at L3-L4. There are multilevel neural foraminal stenosis. 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 Had been on 51u in the past (given at night) and he backed himself down to 30U due to frequent hypoglycemia A1c only 5.8 Pharmacy consulted [facility] while inpatient Suspect decreased needs at discharge Continue to monitor at baseline Cr 2.5, discussed with Dr Espinoza and would continue his lisinopril (5) Brain TIA: Plan: Suspected on admission, but resolution of symptoms without recurrance-- see above ASA 81mg daily, added Lipitor 40mg would continue this at discharge (6) Anemia of chronic disease: Plan: Normocytic B12 deficiency and on supplementation -- B12 level actually elevated. Iron 81, TIBC 253, transferrin 222, trans % sat 26, ferritin 347 (7) Status post placement of cardiac pacemaker: Plan: pacemaker interrogation ordered as above (8) Deep vein thrombosis (DVT) of left lower extremity: Plan: chronic Eliquis Repeat Venous Doppler -- chronic non-occlusive Continue Eliquis indefinitely (9) Elevated troponin: Plan: Trop 0.06 on admission --> increased to 0.117 (no CP/sob reported), trending down on repeat but still 0.107 Had elevations last admission up to 0.198 as wel and was 0.156 prior to discharge ECHO nl EF mod to severe lvh, no rwma Plan: Medically stable for discharge pending placement Admission and Anticipated Discharge Date Admission Date: October 17, 2020 Subjective No acute events overnight. No questions or concerns. Review of Systems Review of Systems: All systems reviewed & are unremarkable except as noted in HPI & below Physical Exam Constitutional: WD/WN, vitals as above Respiratory: normal respiratory effort Cardiovascular: Rate/Rhythm: regular rate and regular rhythm Extremities: + pedal edema (trace equal b/l) Musculoskeletal: no cyanosis or clubbing, extremities motor strength 5/5 Skin: no rashes, warm and dry Neurologic: moves all extremities and awake; not confused Psychiatric: Orientation: alert Results & Data Results & Data ([facility]) Vital Signs (Past 12 Hours) Vital Signs Temp Pulse Resp BP BP Pulse Ox 10/22/20 19:58 69 145/81 H 10/22/20 19:46 36.8 C 66 19 159/78 H 99 10/22/20 15:41 36.4 C L 54 L 18 124/64 98 10/22/20 11:57 36.4 C L 52 L 20 118/64 98 PG Care Time/CCT Total # of Minutes Spent Total Time Spent with Patient: Total time spent is greater than 50% in coordination of care (as documented) at patient's floor/unit and/or counseling patient: Coding Level of Care Code 01762 Subseq Hosp Care Lvl 1 Diagnoses Weakness R53.1 Neurogenic claudication due to lumbar spinal stenosis M48.062 Bladder outlet obstruction N32.0 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
[2020-10-23] MEDS: APIXABAN 5 MG TABLET PO SCH ×2 (07:29→20:25)
[2020-10-23] MEDS: CYANOCOBALAMIN 500 MCG TABLET (VITAMIN B-12) PO SCH (07:29)
[2020-10-23] MEDS: CHOLECALCIFEROL 1,000 UNITS 25 MCG TAB PO SCH (07:29)
[2020-10-23] MEDS: lisinopril 40 MG TAB PO SCH (07:30)
[2020-10-23] MEDS: DOCUSATE SODIUM 100 MG CAP PO SCH ×2 (07:30→20:25)
[2020-10-23] MEDS: hydrALAZINE HCL 25 MG TAB PO SCH ×2 (07:30→20:26)
[2020-10-23] MEDS: FINASTERIDE 5 MG TAB PO SCH (07:30)
[2020-10-23] MEDS: ISOSORBIDE MONO EXTENDED REL 60 MG TABCR PO SCH (07:30)
[2020-10-23] MEDS: FELODIPINE 5 MG TABCR PO SCH (07:30)
[2020-10-23] MEDS: TAMSULOSIN HCL 0.4 MG CAP PO SCH ×2 (07:31→20:27)
[2020-10-23] MEDS: POLYETHYLENE (MIRALAX) 17 GM PACK PO SCH (07:31)
[2020-10-23] MEDS: INSULIN ASPART 100 UNITS/ML 3 ML PEN SC SCH ×4 (08:11→22:50)
[2020-10-23] MEDS: METOPROLOL TARTRATE 100 MG TAB PO SCH ×3 (08:12→20:26)
[2020-10-23 08:43] LABS: Hematocrit (blood only) 31.4 % (42-52); Hemoglobin 10.5 g/dL (14.0-18.0); Mean Corpuscular Hemoglobin 31.1 pg (25-34); Mean Corpuscular Hgb Conc 33.4 g/dL (32-36); Mean Corpuscular Volume 92.9 fL (80-100); Mean Platelet Volume 10.4 fL (7.4-10.4); Platelet Count 171 K/uL (130-400); RDW Standard Deviation 47.9 fL (36.4-46.3); Red Blood Count 3.38 M/uL (4.7-6.1); White Blood Count 4.27 K/uL (4.8-10.8)
[2020-10-23 09:21] LABS: BUN Creatinine Ratio 28.5 (10-20); Calcium 9.5 mg/dl (8.5-10.1); Creatinine Clr Calc Pharmacy 35.9 ml/min; Est GFR (African American) 36.5 ml/min; Est GFR (Non-African American) 31.5 ml/min; Potassium 3.9 mmol/L (3.5-5.1)
[2020-10-23] MEDS: ATORVASTATIN 40 MG TAB PO SCH (20:25)
--- NOTE | 2020-10-23 22:53 | Hospitalist Progress Note ---
Date of Service October 23, 2020 Assessment & Plan (1) Weakness: Plan: Transient episode of slurred speech following discharge from [place] for rehab from prior hospitalization for weakness earlier this month, possibly brain TIA Stroke alert called -- no acute stroke identified Symptoms resolved --> Lipitor 40mg HS Eliquis and continued 81mg ASA daily persistent troponin elevation no acs, Repeat ECHO pending- hx HOCM and LVOT obstruction and will repeat limited ECHO Repeat US Venous Doppler given 6months on eliquis and continued swelling/weakness --> non-occlusive likely chronic thrombus and would continue Eliquis indefinitely== No prior insult but did UA without infection Pacer interrogation without abn Lyme negative CT Lumbar spine with worsening of severe spinal stenosis, most prominent at level L3-L4, L4-L5 Orthopedics consulted, Dr Sanchez --suspect most of patient LE weakness from his back, however patient wanting to hold of on intervention at this time, comfortable at rest. --> Can have follow up if progresses/per patient wishes PT/OT evals rec rehab-- insurance did not approve [facility], awaiting SNF acceptance Holding gabapentin (new medication since last admission for his neuropathy) -- no increased neuropathy reported (2) Neurogenic claudication due to lumbar spinal stenosis: Plan: Severe multilevel degenerative changes within the lumbar spine. Suboptimal kevin luation of the central canal and neural foramen given CT technique. However, severe central stenosis at L4-L5 and probable severe central canal stenosis at L3-L4. There are multilevel neural foraminal stenosis. 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 Had been on 51u in the past (given at night) and he backed himself down to 30U due to frequent hypoglycemia A1c only 5.8 Pharmacy consulted [facility] while inpatient Suspect decreased needs at discharge Continue to monitor at baseline Cr 2.5, discussed with Dr Espinoza and would continue his lisinopril (5) Brain TIA: Plan: Suspected on admission, but resolution of symptoms without recurrance-- see above ASA 81mg daily, added Lipitor 40mg would continue this at discharge (6) Anemia of chronic disease: Plan: Normocytic B12 deficiency and on supplementation -- B12 level actually elevated. Iron 81, TIBC 253, transferrin 222, trans % sat 26, ferritin 347 (7) Status post placement of cardiac pacemaker: Plan: pacemaker interrogation ordered as above (8) Deep vein thrombosis (DVT) of left lower extremity: Plan: chronic Eliquis Repeat Venous Doppler -- chronic non-occlusive Continue Eliquis indefinitely (9) Elevated troponin: Plan: Trop 0.06 on admission --> increased to 0.117 (no CP/sob reported), trending down on repeat but still 0.107 Had elevations last admission up to 0.198 as wel and was 0.156 prior to discharge ECHO nl EF mod to severe lvh, no rwma Plan: Medically stable for discharge pending placement Admission and Anticipated Discharge Date Admission Date: October 17, 2020 Subjective No acute events overnight. No questions or concerns. Walking around the stern with PT. Review of Systems Review of Systems: All systems reviewed & are unremarkable except as noted in HPI & below Physical Exam Constitutional: WD/WN, vitals as above Respiratory: normal respiratory effort Cardiovascular: Rate/Rhythm: regular rate and regular rhythm Extremities: + pedal edema (trace equal b/l) Musculoskeletal: no cyanosis or clubbing, extremities motor strength 5/5 Skin: no rashes, warm and dry Neurologic: moves all extremities and awake; not confused Psychiatric: Orientation: alert Results & Data Results & Data ([facility]) Vital Signs (Past 12 Hours) Vital Signs Temp Pulse Pulse Resp BP BP Pulse Ox 10/23/20 19:56 36.7 C 65 18 175/79 H 99 10/23/20 15:17 36.4 C L 51 L 16 122/66 99 10/23/20 14:19 54 L 10/23/20 11:36 36.5 C 56 L 16 127/66 100 PG Care Time/CCT Total # of Minutes Spent Total Time Spent with Patient: Total time spent is greater than 50% in coordination of care (as documented) at patient's floor/unit and/or counseling patient: Coding Level of Care Code 89036 Subseq Hosp Care Lvl 1 Diagnoses Weakness R53.1 Neurogenic claudication due to lumbar spinal stenosis M48.062 Bladder outlet obstruction N32.0 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
[2020-10-24] MEDS: CHOLECALCIFEROL 1,000 UNITS 25 MCG TAB PO SCH (08:31)
[2020-10-24] MEDS: APIXABAN 5 MG TABLET PO SCH ×2 (08:31→20:49)
[2020-10-24] MEDS: CYANOCOBALAMIN 500 MCG TABLET (VITAMIN B-12) PO SCH (08:31)
[2020-10-24] MEDS: DOCUSATE SODIUM 100 MG CAP PO SCH ×2 (08:33→20:49)
[2020-10-24] MEDS: FELODIPINE 5 MG TABCR PO SCH (08:39)
[2020-10-24] MEDS: hydrALAZINE HCL 25 MG TAB PO SCH ×2 (08:40→20:49)
[2020-10-24] MEDS: FINASTERIDE 5 MG TAB PO SCH (08:40)
[2020-10-24] MEDS: ISOSORBIDE MONO EXTENDED REL 60 MG TABCR PO SCH (08:40)
[2020-10-24] MEDS: TAMSULOSIN HCL 0.4 MG CAP PO SCH ×2 (08:42→20:50)
[2020-10-24] MEDS: lisinopril 40 MG TAB PO SCH (08:42)
[2020-10-24] MEDS: INSULIN ASPART 100 UNITS/ML 3 ML PEN SC SCH ×4 (08:57→21:40)
[2020-10-24] MEDS: METOPROLOL TARTRATE 100 MG TAB PO SCH ×2 (08:58→20:48)
[2020-10-24] MEDS: POLYETHYLENE (MIRALAX) 17 GM PACK PO SCH (09:03)
[2020-10-24] MEDS: ATORVASTATIN 40 MG TAB PO SCH (20:49)
--- NOTE | 2020-10-24 22:08 | Hospitalist Progress Note ---
Date of Service October 24, 2020 Assessment & Plan (1) Weakness: Plan: Transient episode of slurred speech following discharge from [place] for rehab from prior hospitalization for weakness earlier this month, possibly brain TIA Stroke alert called -- no acute stroke identified Symptoms resolved --> Lipitor 40mg HS Eliquis and continued 81mg ASA daily persistent troponin elevation no acs, Repeat ECHO unremarkable Repeat US Venous Doppler given 6months on eliquis and continued swelling/weakness --> non-occlusive likely chronic thrombus and would continue Eliquis indefinitely UA without infection Pacer interrogation without abn Lyme negative CT Lumbar spine with worsening of severe spinal stenosis, most prominent at level L3-L4, L4-L5 Orthopedics consulted, Dr Sanchez --suspect most of patient LE weakness from his back, however patient wanting to hold of on intervention at this time, comfortable at rest. --> Can have follow up if progresses/per patient wishes PT/OT evals rec rehab-- insurance did not approve [facility], awaiting SNF acceptance Holding gabapentin (new medication since last admission for his neuropathy) -- no increased neuropathy reported (2) Neurogenic claudication due to lumbar spinal stenosis: Plan: Severe multilevel degenerative changes within the lumbar spine. Suboptimal evaluation of the central canal and neural foramen given CT technique. However, severe central stenosis at L4-L5 and probable severe central canal stenosis at L3-L4. There are multilevel neural foraminal stenosis. 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 Now basal removed completely and just managed with bolus. A1c only 5.8 Pharmacy consulted - please see note for discharge plan ISS while inpatient at baseline Cr, continue his lisinopril (5) Brain TIA: Plan: Suspected on admission, but resolution of symptoms without recurrence-- see above ASA 81mg daily, added Lipitor 40mg would continue this at discharge (6) Anemia of chronic disease: Plan: Normocytic B12 deficiency and on supplementation -- B12 level actually elevated. Iron 81, TIBC 253, transferrin 222, trans % sat 26, ferritin 347 (7) Status post placement of cardiac pacemaker: Plan: pacemaker interrogation ordered as above (8) Deep vein thrombosis (DVT) of left lower extremity: Plan: chronic Eliquis Repeat Venous Doppler -- chronic non-occlusive Continue Eliquis indefinitely (9) Elevated troponin: Plan: Trop 0.06 on admission --> increased to 0.117 (no CP/sob reported), trending down on repeat but still 0.107 Had elevations last admission up to 0.198 as wel and was 0.156 prior to discharge ECHO nl EF mod to severe lvh, no rwma Plan: VTE Prophylaxis - Eliquis Medically stable for discharge pending placement Admission and Anticipated Discharge Date Admission Date: October 17, 2020 Subjective Doing better since admission. Continues to mobilize around stern well with walker. Awaiting placement. Review of Systems Review of Systems: All systems reviewed & are unremarkable except as noted in HPI & below Physical Exam Constitutional: WD/WN, vitals as above Respiratory: normal respiratory effort Auscultation: lungs clear to auscultation bilaterally Cardiovascular: Rate/Rhythm: regular rate and regular rhythm Extremities: + pedal edema (trace equal b/l) Musculoskeletal: no cyanosis or clubbing, extremities motor strength 5/5 Skin: no rashes, warm and dry Neurologic: moves all extremities and awake; not confused Psychiatric: Orientation: alert Results & Data Results & Data ([facility]) Vital Signs (Past 12 Hours) Vital Signs Temp Pulse Pulse Resp BP BP Pulse Ox 10/24/20 20:48 66 179/82 H 10/24/20 15:50 36.4 C L 52 L 18 114/65 99 10/24/20 11:51 36.2 C L 60 18 122/62 99 PG Care Time/CCT Total # of Minutes Spent Total Time Spent with Patient: Total time spent is greater than 50% in coordination of care (as documented) at patient's floor/unit and/or counseling patient: Coding Level of Care Code 95906 Subseq Hosp Care Lvl 1 Diagnoses Weakness R53.1 Neurogenic claudication due to lumbar spinal stenosis M48.062 Bladder outlet obstruction N32.0 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
[2020-10-25] MEDS: TAMSULOSIN HCL 0.4 MG CAP PO SCH ×2 (09:09→21:13)
[2020-10-25] MEDS: FINASTERIDE 5 MG TAB PO SCH (09:10)
[2020-10-25] MEDS: lisinopril 40 MG TAB PO SCH (09:10)
[2020-10-25] MEDS: ISOSORBIDE MONO EXTENDED REL 60 MG TABCR PO SCH (09:10)
[2020-10-25] MEDS: hydrALAZINE HCL 25 MG TAB PO SCH ×2 (09:10→21:18)
[2020-10-25] MEDS: METOPROLOL TARTRATE 100 MG TAB PO SCH ×2 (09:11→21:18)
[2020-10-25] MEDS: FELODIPINE 5 MG TABCR PO SCH (09:11)
[2020-10-25] MEDS: DOCUSATE SODIUM 100 MG CAP PO SCH ×2 (09:11→21:12)
[2020-10-25] MEDS: CYANOCOBALAMIN 500 MCG TABLET (VITAMIN B-12) PO SCH (09:11)
[2020-10-25] MEDS: CHOLECALCIFEROL 1,000 UNITS 25 MCG TAB PO SCH (09:11)
[2020-10-25] MEDS: APIXABAN 5 MG TABLET PO SCH ×2 (09:11→21:11)
[2020-10-25] MEDS: POLYETHYLENE (MIRALAX) 17 GM PACK PO SCH (09:12)
[2020-10-25] MEDS: INSULIN ASPART 100 UNITS/ML 3 ML PEN SC SCH ×4 (09:13→21:18)
--- NOTE | 2020-10-25 13:52 | Pharmacy Report ---
Pharmacy Glycemic Sign Off Nt - Date of Service October 25, 2020 - Assessment & Plan ASSESSMENT: * Pharmacy was consulted on 10/17/20 for glycemic control and to write orders per [facility] inpatient glycemic control protocol. * Major changes made by pharmacy to antidiabetic regimen include: * removal of basal insulin * Patient has been receiving ~19 units of bolus insulin per day for adequate glycemic control * BSGs ranging 106 - 177 mg/dl * No change to insulin regimen since 7/20 AM * Do not anticipate further changes in patient status that would quickly deteriorate glycemic control (i.e. patient to be NPO for upcoming procedure, steroids tapering, starting tube feedings, etc). * Please see recommendations for outpatient antidiabetic regimen below. PLAN FOR INPATIENT GLYCEMIC CONTROL: No changes needed to current regimen. * Continue NovoLog per scale ACHS/Q6hrs while NPO * Goal range = 110-140 mg/dl * CF = 30 mg/dl/unit * CR = 1 unit for ever 7 g CHO consumed * Pharmacy is signing off of glycemic consult and will no longer be making adjustments to inpatient regimen. Please feel free to re-consult if needed. Thank you. DISCHARGE RECOMMENDATIONS: * A1c 5.8 % on 10/02/20 - this is below goal * Patient admitted with hypoglycemia requiring significant reduction in basal insulin doses and eventually removal of basal insulin from regimen * If patient is discharged to a rehab facility, they could likely continue to manage with bolus insulin. * If the plan is to resume Toujeo, consider reducing dose to Toujeo 15 units SQ daily
[2020-10-25] MEDS ORDERED: DOCUSATE SODIUM/SENNA 50/8.6MG TAB PO ONE (14:20)
[2020-10-25] MEDS ORDERED: POLYETHYLENE (MIRALAX) 17 GM PACK PO SCH (21:00)
[2020-10-25] MEDS: ATORVASTATIN 40 MG TAB PO SCH (21:12)
--- NOTE | 2020-10-25 23:33 | Hospitalist Progress Note ---
Date of Service October 25, 2020 Assessment & Plan (1) Weakness: Plan: Transient episode of slurred speech following discharge from [place] for rehab from prior hospitalization for weakness earlier this month, possibly brain TIA Stroke alert called -- no acute stroke identified Symptoms resolved --> Lipitor 40mg HS Eliquis and continued 81mg ASA daily persistent troponin elevation no acs, Repeat ECHO unremarkable Repeat US Venous Doppler given 6months on eliquis and continued swelling/weakness --> non-occlusive likely chronic thrombus and would continue Eliquis indefinitely== No prior insult but did UA without infection Pacer interrogation without abn Lyme negative CT Lumbar spine with worsening of severe spinal stenosis, most prominent at level L3-L4, L4-L5 Orthopedics consulted, Dr Sanchez --suspect most of patient LE weakness from his back, however patient wanting to hold of on intervention at this time, comfortable at rest. --> Can have follow up if progresses/per patient wishes PT/OT evals rec rehab-- insurance did not approve [facility], awaiting SNF acceptance Holding gabapentin (new medication since last admission for his neuropathy) -- no increased neuropathy reported (2) Neurogenic claudication due to lumbar spinal stenosis: Plan: Severe multilevel degenerative changes within the lumbar spine. Suboptimal evaluation of the central canal and neural foramen given CT technique. However, severe central stenosis at L4-L5 and probable severe central canal stenosis at L3-L4. There are multilevel neural foraminal stenosis. Dr Sanchez on consult --pt refused to consider surgical correction PT/OT (3) Bladder outlet obstruction: Plan: Similar episode last admission Cr 2.6 on admission culture negative for infection Renal US c/w bladder outlet obstruction and noted PVR ~400cc Urology on consulted -- PVR improved therefore no need for fung at this time. 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 Now not needing basal dosing at all. A1c only 5.8 Pharmacy consulted ISS while inpatient at baseline Cr 2.5, discussed with Dr Espinoza and would continue his lisinopril (5) Brain TIA: Plan: Suspected on admission, but resolution of symptoms without recurrance-- see above ASA 81mg daily, added Lipitor 40mg would continue this at discharge (6) Anemia of chronic disease: Plan: Normocytic B12 deficiency and on supplementation -- B12 level actually elevated. Iron 81, TIBC 253, transferrin 222, trans % sat 26, ferritin 347 (7) Status post placement of cardiac pacemaker: Plan: pacemaker interrogation ordered as above (8) Deep vein thrombosis (DVT) of left lower extremity: Plan: chronic Eliquis Repeat Venous Doppler -- chronic non-occlusive Continue Eliquis indefinitely (9) Elevated troponin: Plan: Trop 0.06 on admission --> increased to 0.117 (no CP/sob reported), trending down on repeat but still 0.107 Had elevations last admission up to 0.198 as wel and was 0.156 prior to discharge ECHO nl EF mod to severe lvh, no rwma Plan: Medically stable for discharge pending placement Admission and Anticipated Discharge Date Admission Date: October 17, 2020 Subjective Patient unclear when he last had a BM but reportedly had one yesterday her nursing staff. No acute complaints or questions. No acute events overnight. Remains medically stable for discharge. Review of Systems Review of Systems: All systems reviewed & are unremarkable except as noted in HPI & below Physical Exam Constitutional: WD/WN, vitals as above Respiratory: normal respiratory effort Auscultation: lungs clear to auscultation bilaterally Cardiovascular: Rate/Rhythm: regular rate and regular rhythm Extremities: + pedal edema (trace equal b/l) Musculoskeletal: no cyanosis or clubbing, extremities motor strength 5/5 Skin: no rashes, warm and dry Neurologic: moves all extremities and awake; not confused Psychiatric: Orientation: alert Results & Data Results & Data ([facility]) Vital Signs (Past 12 Hours) Vital Signs Temp Pulse Pulse Resp BP BP Pulse Ox 10/25/20 21:18 52 L 142/79 H 10/25/20 15:42 36.6 C 49 L 18 101/61 98 PG Care Time/CCT Total # of Minutes Spent Total Time Spent with Patient: Total time spent is greater than 50% in coordination of care (as documented) at patient's floor/unit and/or counseling patient: Coding Level of Care Code 88191 Subseq Hosp Care Lvl 1 Diagnoses Weakness R53.1 Neurogenic claudication due to lumbar spinal stenosis M48.062 Bladder outlet obstruction N32.0 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
[2020-10-26] MEDS ORDERED: ENALAPRILAT 1.25 MG in DEXTROSE 5% 25 ML IV STA (04:20)
[2020-10-26] MEDS ORDERED: DOCUSATE SODIUM/SENNA 50/8.6MG TAB PO SCH (09:00)
[2020-10-26] MEDS: DOCUSATE SODIUM 100 MG CAP PO SCH ×2 (09:13→21:16)
[2020-10-26] MEDS: ISOSORBIDE MONO EXTENDED REL 60 MG TABCR PO SCH (09:13)
[2020-10-26] MEDS: FELODIPINE 5 MG TABCR PO SCH (09:13)
[2020-10-26] MEDS: lisinopril 40 MG TAB PO SCH (09:13)
[2020-10-26] MEDS: METOPROLOL TARTRATE 100 MG TAB PO SCH ×2 (09:13→21:16)
[2020-10-26] MEDS: CHOLECALCIFEROL 1,000 UNITS 25 MCG TAB PO SCH (09:13)
[2020-10-26] MEDS: APIXABAN 5 MG TABLET PO SCH ×2 (09:13→21:16)
[2020-10-26] MEDS: CYANOCOBALAMIN 500 MCG TABLET (VITAMIN B-12) PO SCH (09:13)
[2020-10-26] MEDS: hydrALAZINE HCL 25 MG TAB PO SCH ×2 (09:14→21:16)
[2020-10-26] MEDS: FINASTERIDE 5 MG TAB PO SCH (09:14)
[2020-10-26] MEDS: TAMSULOSIN HCL 0.4 MG CAP PO SCH ×2 (09:14→21:17)
[2020-10-26] MEDS: POLYETHYLENE (MIRALAX) 17 GM PACK PO SCH (09:14)
[2020-10-26] MEDS: INSULIN ASPART 100 UNITS/ML 3 ML PEN SC SCH ×4 (09:14→21:19)
[2020-10-26 14:00] LABS: Hemoglobin 10.5 g/dL (14.0-18.0); Mean Corpuscular Hemoglobin 31.7 pg (25-34); Mean Corpuscular Hgb Conc 33.9 g/dL (32-36); Mean Corpuscular Volume 93.7 fL (80-100); Mean Platelet Volume 10.1 fL (7.4-10.4); Platelet Count 165 K/uL (130-400); RDW Coefficient of Variation 13.9 % (11.5-14.5); RDW Standard Deviation 47.8 fL (36.4-46.3); Red Blood Count 3.31 M/uL (4.7-6.1); White Blood Count 3.55 K/uL (4.8-10.8)
[2020-10-26 14:17] LABS: BUN Creatinine Ratio 22.8 (10-20); Calcium 9.1 mg/dl (8.5-10.1); Creatinine Clr Calc Pharmacy 30.4 ml/min; Est GFR (Non-African American) 25.9 ml/min; Potassium 4.5 mmol/L (3.5-5.1)
[2020-10-26] MEDS: ATORVASTATIN 40 MG TAB PO SCH (21:16)
--- NOTE | 2020-10-26 22:05 | Hospitalist Progress Note ---
Date of Service October 26, 2020 Assessment & Plan (1) Weakness: Plan: Transient episode of slurred speech following discharge from [place] for rehab from prior hospitalization for weakness earlier this month, possibly brain TIA Stroke alert called -- no acute stroke identified Symptoms resolved --> Lipitor 40mg HS Eliquis and continued 81mg ASA daily persistent troponin elevation no acs, Repeat ECHO unremarkable Repeat US Venous Doppler given 6months on eliquis and continued swelling/weakness --> non-occlusive likely chronic thrombus and would continue Eliquis indefinitely== No prior insult but did UA without infection Pacer interrogation without abn Lyme negative CT Lumbar spine with worsening of severe spinal stenosis, most prominent at level L3-L4, L4-L5 Orthopedics consulted, Dr Sanchez --suspect most of patient LE weakness from his back, however patient wanting to hold of on intervention at this time, comfortable at rest. --> Can have follow up if progresses/per patient wishes PT/OT evals rec rehab-- insurance did not approve [facility], awaiting SNF acceptance Holding gabapentin (new medication since last admission for his neuropathy) -- no increased neuropathy reported (2) Neurogenic claudication due to lumbar spinal stenosis: Plan: Severe multilevel degenerative changes within the lumbar spine. Suboptimal evaluation of the central canal and neural foramen given CT technique. However, severe central stenosis at L4-L5 and probable severe central canal stenosis at L3-L4. There are multilevel neural foraminal stenosis. Dr Sanchez on consult --pt refused to consider surgical correction PT/OT (3) Bladder outlet obstruction: Plan: Similar episode last admission Cr 2.6 on admission culture negative for infection Renal US c/w bladder outlet obstruction and noted PVR ~400cc Urology on consulted -- PVR improved therefore no need for fung at this time. 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 Now not needing basal dosing at all. A1c only 5.8 Pharmacy consulted ISS while inpatient at baseline Cr 2.5, discussed with Dr Espinoza and would continue his lisinopril (5) Brain TIA: Plan: Suspected on admission, but resolution of symptoms without recurrance-- see above ASA 81mg daily, added Lipitor 40mg would continue this at discharge (6) Anemia of chronic disease: Plan: Normocytic B12 deficiency and on supplementation -- B12 level actually elevated. Iron 81, TIBC 253, transferrin 222, trans % sat 26, ferritin 347 (7) Status post placement of cardiac pacemaker: Plan: pacemaker interrogation ordered as above (8) Deep vein thrombosis (DVT) of left lower extremity: Plan: chronic Eliquis Repeat Venous Doppler -- chronic non-occlusive Continue Eliquis indefinitely (9) Elevated troponin: Plan: Trop 0.06 on admission --> increased to 0.117 (no CP/sob reported), trending down on repeat but still 0.107 Had elevations last admission up to 0.198 as wel and was 0.156 prior to discharge ECHO nl EF mod to severe lvh, no rwma (10) Hypertension: Plan: BP was low in the 80s when he stood up. BP recovered, will monitor Blood pressure. May consider moving some BP meds to nights. will hold discharge Plan: Medically stable for discharge pending placement Admission and Anticipated Discharge Date Admission Date: October 17, 2020 Subjective Patient reports no new symptoms Review of Systems Review of Systems: All systems reviewed & are unremarkable except as noted in HPI & below Physical Exam Physical Exam: Constitutional: WD/WN, vitals as above Respiratory: normal respiratory effort Auscultation: lungs clear to auscultation bilaterally Cardiovascular: Rate/Rhythm: regular rate and regular rhythm Extremities: + pedal edema (trace equal b/l) Musculoskeletal: no cyanosis or clubbing, extremities motor strength 5/5 Skin: no rashes, warm and dry Neurologic: moves all extremities and awake; not confused Psychiatric: Orientation: alert Results & Data Results & Data ([facility]) Vital Signs (Past 12 Hours) Vital Signs Temp Pulse Resp BP BP Pulse Ox 10/26/20 21:11 36.7 C 54 L 20 164/79 H 99 10/26/20 16:31 36.6 C 88 18 105/64 94 PG Care Time/CCT Total # of Minutes Spent Total Time Spent with Patient: Total time spent is greater than 50% in coordination of care (as documented) at patient's floor/unit and/or counseling patient: Coding Level of Care Code 18098 Subseq Hosp Care Lvl 3 Diagnoses Weakness R53.1 Neurogenic claudication due to lumbar spinal stenosis M48.062 Bladder outlet obstruction N32.0 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
[2020-10-27] MEDS: INSULIN ASPART 100 UNITS/ML 3 ML PEN SC SCH ×4 (08:35→21:24)
[2020-10-27] MEDS: METOPROLOL TARTRATE 100 MG TAB PO SCH ×2 (08:37→21:28)
[2020-10-27] MEDS: APIXABAN 5 MG TABLET PO SCH ×2 (08:38→21:28)
[2020-10-27] MEDS: TAMSULOSIN HCL 0.4 MG CAP PO SCH ×2 (08:38→21:28)
[2020-10-27] MEDS: CYANOCOBALAMIN 500 MCG TABLET (VITAMIN B-12) PO SCH (08:38)
[2020-10-27] MEDS: hydrALAZINE HCL 25 MG TAB PO SCH (08:38)
[2020-10-27] MEDS: DOCUSATE SODIUM 100 MG CAP PO SCH ×2 (08:38→21:28)
[2020-10-27] MEDS: FINASTERIDE 5 MG TAB PO SCH (08:38)
[2020-10-27] MEDS: ISOSORBIDE MONO EXTENDED REL 60 MG TABCR PO SCH (08:38)
[2020-10-27] MEDS: FELODIPINE 5 MG TABCR PO SCH (08:39)
[2020-10-27] MEDS: CHOLECALCIFEROL 1,000 UNITS 25 MCG TAB PO SCH (08:39)
[2020-10-27] MEDS: POLYETHYLENE (MIRALAX) 17 GM PACK PO SCH (08:40)
[2020-10-27 12:25] LABS: Hematocrit (blood only) 32.4 % (42-52); Hemoglobin 10.8 g/dL (14.0-18.0); Mean Corpuscular Hemoglobin 31.6 pg (25-34); Mean Corpuscular Hgb Conc 33.3 g/dL (32-36); Mean Corpuscular Volume 94.7 fL (80-100); Mean Platelet Volume 11.1 fL (7.4-10.4); Platelet Count 177 K/uL (130-400); RDW Coefficient of Variation 13.9 % (11.5-14.5); RDW Standard Deviation 48.2 fL (36.4-46.3); Red Blood Count 3.42 M/uL (4.7-6.1)
[2020-10-27 13:12] LABS: BUN Creatinine Ratio 24.1 (10-20); Calcium 8.8 mg/dl (8.5-10.1); Creatinine Clr Calc Pharmacy 29.4 ml/min; Est GFR (African American) 28.8 ml/min; Est GFR (Non-African American) 24.9 ml/min; Potassium 4.2 mmol/L (3.5-5.1)
[2020-10-27] MEDS ORDERED: lisinopril 40 MG TAB PO SCH (21:00)
--- NOTE | 2020-10-27 21:14 | Hospitalist Progress Note ---
Date of Service October 27, 2020 Assessment & Plan (1) Hypotension: Plan: Discharge has been held for past 2 days due to epsidoes of hypotension. Patient may have too high of doses for his BP. Venu slowly cut back on his medicine. This may also be contributing to his weakness below. Will slowly cut back on his BP meds and monitor his BP. will decrease lisinopril to 20 mg PO PM and will hold hydralazine. updated brother in room. (2) Weakness: Plan: Transient episode of slurred speech following discharge from [place] for rehab from prior hospitalization for weakness earlier this month, possibly brain TIA Stroke alert called -- no acute stroke identified Symptoms resolved --> Lipitor 40mg HS Eliquis and continued 81mg ASA daily persistent troponin elevation no acs, Repeat ECHO unremarkable Repeat US Venous Doppler given 6months on eliquis and continued swelling/weakness --> non-occlusive likely chronic thrombus and would continue Eliquis indefinitely== No prior insult but did UA without infection Pacer interrogation without abn Lyme negative CT Lumbar spine with worsening of severe spinal stenosis, most prominent at level L3-L4, L4-L5 Orthopedics consulted, Dr Sanchez --suspect most of patient LE weakness from his back, however patient wanting to hold of on intervention at this time, comfortable at rest. --> Can have follow up if progresses/per patient wishes PT/OT evals rec rehab-- insurance did not approve [facility], awaiting SNF acceptance Holding gabapentin (new medication since last admission for his neuropathy) -- no increased neuropathy reported (3) Neurogenic claudication due to lumbar spinal stenosis: Plan: Severe multilevel degenerative changes within the lumbar spine. Suboptimal evaluation of the central canal and neural foramen given CT technique. However, severe central stenosis at L4-L5 and probable severe central canal stenosis at L3-L4. There are multilevel neural foraminal stenosis. Dr Sanchez on consult --pt refused to consider surgical correction PT/OT (4) Bladder outlet obstruction: Plan: Similar episode last admission Cr 2.6 on admission culture negative for infection Renal US c/w bladder outlet obstruction and noted PVR ~400cc Urology on consulted -- PVR improved therefore no need for fung at this time. 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 Now not needing basal dosing at all. A1c only 5.8 Pharmacy consulted ISS while inpatient at baseline Cr 2.5, discussed with Dr Espinoza and would continue his lisinopril (6) Brain TIA: Plan: Suspected on admission, but resolution of symptoms without recurrance-- see above ASA 81mg daily, added Lipitor 40mg would continue this at discharge (7) Anemia of chronic disease: Plan: Normocytic B12 deficiency and on supplementation -- B12 level actually elevated. Iron 81, TIBC 253, transferrin 222, trans % sat 26, ferritin 347 (8) Status post placement of cardiac pacemaker: Plan: pacemaker interrogation ordered as above (9) Deep vein thrombosis (DVT) of left lower extremity: Plan: chronic Eliquis Repeat Venous Doppler -- chronic non-occlusive Continue Eliquis indefinitely (10) Elevated troponin: Plan: Trop 0.06 on admission --> increased to 0.117 (no CP/sob reported), trending down on repeat but still 0.107 Had elevations last admission up to 0.198 as wel and was 0.156 prior to discharge ECHO nl EF mod to severe lvh, no rwma (11) Hypertension: Plan: BP was low in the 80s when he stood up. BP recovered, will monitor Blood pressure. May consider moving some BP meds to nights. will hold discharge Plan: Medically stable for discharge pending placement Admission and Anticipated Discharge Date Admission Date: October 17, 2020 Subjective Patient reports no new symptoms. Review of Systems Review of Systems: All systems reviewed & are unremarkable except as noted in HPI & below Physical Exam Physical Exam: Constitutional: WD/WN, vitals as above Respiratory: normal respiratory effort Auscultation: lungs clear to auscultation bilaterally Cardiovascular: Rate/Rhythm: regular rate and regular rhythm Extremities: + pedal edema (trace equal b/l) Musculoskeletal: no cyanosis or clubbing, extremities motor strength 5/5 Skin: no rashes, warm and dry Neurologic: moves all extremities and awake; not confused Psychiatric: Orientation: alert Results & Data Results & Data ([facility]) Vital Signs (Past 12 Hours) Vital Signs Temp Pulse Resp BP BP Pulse Ox 10/27/20 14:29 36.4 C L 58 L 18 91/54 L 98 10/27/20 13:12 71/38 L 10/27/20 13:11 85/50 L 10/27/20 12:06 37.1 C 58 L 18 130/72 92 PG Care Time/CCT Total # of Minutes Spent Total Time Spent with Patient: Total time spent is greater than 50% in coordination of care (as documented) at patient's floor/unit and/or counseling patient: Coding Level of Care Code 51993 Subseq Hosp Care Lvl 2 Diagnoses Weakness R53.1 Neurogenic claudication due to lumbar spinal stenosis M48.062 Bladder outlet obstruction N32.0 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
[2020-10-27] MEDS: ATORVASTATIN 40 MG TAB PO SCH (21:28)
[2020-10-27] MEDS: PANTOprazole 40 MG TAB PO SCH (21:28)
[2020-10-28] MEDS: hydrALAZINE HCL 25 MG TAB PO SCH (01:58)
[2020-10-28] MEDS: INSULIN ASPART 100 UNITS/ML 3 ML PEN SC SCH ×4 (09:22→21:22)
[2020-10-28] MEDS: DOCUSATE SODIUM 100 MG CAP PO SCH ×2 (09:26→20:45)
[2020-10-28] MEDS: CYANOCOBALAMIN 500 MCG TABLET (VITAMIN B-12) PO SCH (09:27)
[2020-10-28] MEDS: APIXABAN 5 MG TABLET PO SCH ×2 (09:27→20:44)
[2020-10-28] MEDS: CHOLECALCIFEROL 1,000 UNITS 25 MCG TAB PO SCH (09:27)
[2020-10-28] MEDS: POLYETHYLENE (MIRALAX) 17 GM PACK PO SCH (09:27)
[2020-10-28] MEDS: FINASTERIDE 5 MG TAB PO SCH (09:28)
[2020-10-28] MEDS: FELODIPINE 5 MG TABCR PO SCH (09:28)
[2020-10-28] MEDS: ISOSORBIDE MONO EXTENDED REL 60 MG TABCR PO SCH (09:28)
[2020-10-28] MEDS: METOPROLOL TARTRATE 100 MG TAB PO SCH ×2 (09:28→20:45)
[2020-10-28] MEDS: PANTOprazole 40 MG TAB PO SCH ×2 (09:28→20:45)
[2020-10-28] MEDS: TAMSULOSIN HCL 0.4 MG CAP PO SCH ×2 (09:29→20:44)
--- NOTE | 2020-10-28 20:34 | Hospitalist Progress Note ---
Date of Service October 28, 2020 Assessment & Plan (1) Hypotension: Plan: Discharge has been held for past 3 days due to epsiodes of hypotension. On 10/28 , pressures have been stable since hydralazine was stopped and lisinopril was converted to the evening and decreased to 20 mg. Patient may have been receiving too high of doses for his BP medication. This may also be contributing to his weakness below. Will slowly cut back on his BP meds and monitor his BP. updated brother in room. (2) Weakness: Plan: Transient episode of slurred speech following discharge from [place] for rehab from prior hospitalization for weakness earlier this month, possibly brain TIA Stroke alert called -- no acute stroke identified Symptoms resolved --> Lipitor 40mg HS Eliquis and continued 81mg ASA daily persistent troponin elevation no acs, Repeat ECHO unremarkable Repeat US Venous Doppler given 6months on eliquis and continued swelling/weakness --> non-occlusive likely chronic thrombus and would continue Eliquis indefinitely== No prior insult but did UA without infection Pacer interrogation without abn Lyme negative CT Lumbar spine with worsening of severe spinal stenosis, most prominent at level L3-L4, L4-L5 Orthopedics consulted, Dr Sanchez --suspect most of patient LE weakness from his back, however patient wanting to hold of on intervention at this time, comfortable at rest. --> Can have follow up if progresses/per patient wishes PT/OT evals rec rehab-- insurance did not approve [facility], awaiting SNF acceptance Holding gabapentin (new medication since last admission for his neuropathy) -- no increased neuropathy reported (3) Neurogenic claudication due to lumbar spinal stenosis: Plan: Severe multilevel degenerative changes within the lumbar spine. Suboptimal evaluation of the central canal and neural foramen given CT technique. However, severe central stenosis at L4-L5 and probable severe central canal stenosis at L3-L4. There are multilevel neural foraminal stenosis. Dr Sanchez on consult --pt refused to consider surgical correction PT/OT (4) Bladder outlet obstruction: Plan: Similar episode last admission Cr 2.6 on admission culture negative for infection Renal US c/w bladder outlet obstruction and noted PVR ~400cc Urology on consulted -- PVR improved therefore no need for fung at this time. 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 Now not needing basal dosing at all. A1c only 5.8 Pharmacy consulted [facility] while inpatient at baseline Cr 2.5, discussed with Dr Espinoza and would continue his lisinopril (6) Brain TIA: Plan: Suspected on admission, but resolution of symptoms without recurrance-- see above ASA 81mg daily, added Lipitor 40mg would continue this at discharge (7) Anemia of chronic disease: Plan: Normocytic B12 deficiency and on supplementation -- B12 level actually elevated. Iron 81, TIBC 253, transferrin 222, trans % sat 26, ferritin 347 (8) Status post placement of cardiac pacemaker: Plan: pacemaker interrogation ordered as above (9) Deep vein thrombosis (DVT) of left lower extremity: Plan: chronic Eliquis Repeat Venous Doppler -- chronic non-occlusive Continue Eliquis indefinitely (10) Elevated troponin: Plan: Trop 0.06 on admission --> increased to 0.117 (no CP/sob reported), trending down on repeat but still 0.107 Had elevations last admission up to 0.198 as wel and was 0.156 prior to discharge ECHO nl EF mod to severe lvh, no rwma (11) Hypertension: Plan: BP was low in the 80s when he stood up on Monday. BP recovered, will monitor Blood pressure. May consider moving some BP meds to nights. will hold discharge Plan: Medically stable for discharge pending placement Admission and Anticipated Discharge Date Admission Date: October 17, 2020 Subjective Patient reports no new symptoms today. He denies any dizziness Review of Systems Review of Systems: All systems reviewed & are unremarkable except as noted in HPI & below Physical Exam Physical Exam: Constitutional: WD/WN, vitals as above Respiratory: normal respiratory effort Auscultation: lungs clear to auscultation bilaterally Cardiovascular: Rate/Rhythm: regular rate and regular rhythm Extremities: + pedal edema (trace equal b/l) Musculoskeletal: no cyanosis or clubbing, extremities motor strength 5/5 Skin: no rashes, warm and dry Neurologic: moves all extremities and awake; not confused Psychiatric: Orientation: alert Results & Data Results & Data ([facility]) Vital Signs (Past 12 Hours) Vital Signs Temp Pulse Resp BP Pulse Ox 10/28/20 15:51 36.6 C 76 22 111/64 95 PG Care Time/CCT Total # of Minutes Spent Total Time Spent with Patient: Total time spent is greater than 50% in coordination of care (as documented) at patient's floor/unit and/or counseling patient: Coding Level of Care Code 54012 Subseq Hosp Care Lvl 2 Diagnoses Hypotension I95.9 Weakness R53.1 Neurogenic claudication due to lumbar spinal stenosis M48.062 Bladder outlet obstruction N32.0 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 Hypertension I10 Time Spent (min) 25
[2020-10-28] MEDS: ATORVASTATIN 40 MG TAB PO SCH (20:44)
[2020-10-28] MEDS ORDERED: lisinopril 20 MG TAB PO SCH (21:00)
[2020-10-29 07:41] LABS: Hematocrit (blood only) 31.7 % (42-52); Hemoglobin 10.6 g/dL (14.0-18.0); Mean Corpuscular Hemoglobin 31.4 pg (25-34); Mean Corpuscular Hgb Conc 33.4 g/dL (32-36); Mean Corpuscular Volume 93.8 fL (80-100); Mean Platelet Volume 10.6 fL (7.4-10.4); Platelet Count 160 K/uL (130-400); RDW Coefficient of Variation 13.8 % (11.5-14.5); RDW Standard Deviation 47.6 fL (36.4-46.3); Red Blood Count 3.38 M/uL (4.7-6.1); White Blood Count 3.75 K/uL (4.8-10.8)
[2020-10-29 08:01] LABS: BUN Creatinine Ratio 28.9 (10-20); Calcium 8.8 mg/dl (8.5-10.1); Creatinine Clr Calc Pharmacy 35.7 ml/min; Est GFR (African American) 36.5 ml/min; Est GFR (Non-African American) 31.5 ml/min; Potassium 4.2 mmol/L (3.5-5.1)
[2020-10-29] MEDS: TAMSULOSIN HCL 0.4 MG CAP PO SCH (09:32)
[2020-10-29] MEDS: PANTOprazole 40 MG TAB PO SCH (09:33)
[2020-10-29] MEDS: APIXABAN 5 MG TABLET PO SCH (09:33)
[2020-10-29] MEDS: ISOSORBIDE MONO EXTENDED REL 60 MG TABCR PO SCH (09:33)
[2020-10-29] MEDS: FINASTERIDE 5 MG TAB PO SCH (09:33)
[2020-10-29] MEDS: CHOLECALCIFEROL 1,000 UNITS 25 MCG TAB PO SCH (09:33)
[2020-10-29] MEDS: METOPROLOL TARTRATE 100 MG TAB PO SCH (09:33)
[2020-10-29] MEDS: DOCUSATE SODIUM 100 MG CAP PO SCH (09:33)
[2020-10-29] MEDS: CYANOCOBALAMIN 500 MCG TABLET (VITAMIN B-12) PO SCH (09:33)
[2020-10-29] MEDS: FELODIPINE 5 MG TABCR PO SCH (09:33)
[2020-10-29] MEDS: POLYETHYLENE (MIRALAX) 17 GM PACK PO SCH (09:34)
[2020-10-29] MEDS: INSULIN ASPART 100 UNITS/ML 3 ML PEN SC SCH ×2 (09:39→12:54)
--- NOTE | 2020-10-29 10:57 | Discharge Summary ---
Date of Service October 29, 2020 Admission HPI Per Admitting Provider 75yo male Discharged from [facility] earlier this month for similar symptoms and was sent to [facility] for rehab. Per patient and brother, he was doing well with therapy this morning and then had a small accident BM in his pants (unaware he needed to have BM but reportedly hadn't moved his bowels in over a week prior). He does endorse low back pain and reports spinal stenosis history that pain is typically improved with sitting. He had been ambulatory without assistive device besides a cane at times prior to admission several weeks ago and is now requiring a walker with ambulation. Previous admission requiring fleets enemas for relief. Brother states that patient this morning he picked him up and then felt like he was going to pass out and had some slurred speech. New medications last admission -- gabapentin (discussed we will hold this), ASA 81mg (he states he has at home but has not been on while on Eliquis but did get while in rehab). No bleeding reported. Statin was also increased. Speech has cleared since arrival to ER and stroke work-up negative. Weakness in L leg > R leg, and is on side of prior DVT which he states he had repeat US and showed improvement. CT Head without acute finding. CTA Head/Neck with moderate multifocal stenosis within intracranial vessels -- Atheromatous change but no evidence of hemodynamically significant carotid stenosis. Probable stenosis involving the origin of the right vertebral artery. Evaluation is limited due to calcified plaque. Distal vertebral artery calcifications which results in a 50% diameter narrowing in the distal right vertebral artery. Telemetry -- prolonged AV conduction without ST elevation/depression. Trop 0.06 but less than prior admission. Denied fever, chills, chest pain ,shortness of breath, palpitations, blurred vision, nausea, vomiting, melena, hematochezia, dysuria. He does note ability to hold more urine with less frequency but has had frequency chronically, following with Dr Benoit locally. Principal Diagnosis Generalized weakness Discharge Exam Constitutional: WD/WN, vitals as above Respiratory: normal respiratory effort Auscultation: lungs clear to auscultation bilaterally Cardiovascular: Rate/Rhythm: regular rate and regular rhythm Extremities: + pedal edema (trace equal b/l) Musculoskeletal: no cyanosis or clubbing, extremities motor strength 5/5 Skin: no rashes, warm and dry Neurologic: moves all extremities and awake; not confused Psychiatric: Orientation: alert Discharge Data Allergies Allergy/AdvReac Type Severity Reaction Status Date / Time No Known Allergies Allergy ` Verified 10/16/20 17:10 Consultations 10/16/20 16:50 ED Decision to Admit Stat 10/17/20 06:26 Consult Orthopedic Surgery Routine 10/17/20 11:07 Consult Urology Routine Ordered Studies 10/16/20 14:56 CT angio head w con Stat CT angio neck with con Stat CT head/brain wo con Stat 10/16/20 20:35 CT lumbar spine wo con Routine US venous doppler LE LT Routine 10/17/20 06:29 US renal/blad retro comp Routine Hospital Course (1) Hypotension: Discharge has been held for past 3 days due to epsiodes of hypotension. On 10/28 , pressures have been stable since hydralazine was stopped and lisinopril was converted to the evening and decreased to 20 mg. Patient may have been receiving too high of doses for his BP medication. This may also be contributing to his weakness below. Will slowly cut back on his BP meds and monitor his BP. updated brother in room. ON 10/29 BP was better controlled. It appears by removing hydralazine which should be given q6h and moving lisinopril to 20 mg at bedtime has stabilized your blood pressure. (2) Weakness: Transient episode of slurred speech following discharge from [place] for rehab from prior hospitalization for weakness earlier this month, possibly brain TIA Stroke alert called -- no acute stroke identified Symptoms resolved --> Lipitor 40mg HS Eliquis and continued 81mg ASA daily persistent troponin elevation no acs, Repeat ECHO unremarkable Repeat US Venous Doppler given 6months on eliquis and continued swelling/weakness --> non-occlusive likely chronic thrombus and would continue Eliquis indefinitely== No prior insult but did UA without infection Pacer interrogation without abn Lyme negative CT Lumbar spine with worsening of severe spinal stenosis, most prominent at level L3-L4, L4-L5 Orthopedics consulted, Dr Sanchez --suspect most of patient LE weakness from his back, however patient wanting to hold of on intervention at this time, comfortable at rest. --> Can have follow up if progresses/per patient wishes PT/OT evals rec rehab-- insurance did not approve [facility], awaiting SNF acceptance Holding gabapentin (new medication since last admission for his neuropathy) -- no increased neuropathy reported It appears your weakness may be contributed to your hypotension and possibly having your blood sugar too tightly controlled. BP changes as above, and cutting back your insulin as stated below in your discharge medications. A1C was 5.8 which shows that your blood sugar may be too tightly controlled. D/W brother who agrees with plan. (3) Neurogenic claudication due to lumbar spinal stenosis: Severe multilevel degenerative changes within the lumbar spine. Suboptimal evaluation of the central canal and neural foramen given CT technique. However, severe central stenosis at L4-L5 and probable severe central canal stenosis at L3-L4. There are multilevel neural foraminal stenosis. Dr Sanchez on consult --pt refused to consider surgical correction PT/OT (4) Bladder outlet obstruction: Similar episode last admission Cr 2.6 on admission culture negative for infection Renal US c/w bladder outlet obstruction and noted PVR ~400cc Urology on consulted -- PVR improved therefore no need for fung at this time. f/u urology as outpatient Continues on flomax BID, solifenacin PSA 2.47 (5) Secondary diabetes mellitus with stage 3 chronic kidney disease and hypertension: Had been on 51u in the past (given at night) and he backed himself down to 30U due to frequent hypoglycemia. Now not needing basal dosing at all. A1c only 5.8 Pharmacy consulted [facility] while inpatient at baseline Cr 2.5, discussed with Dr Espinoza and would continue his lisinopril (6) Brain TIA: Suspected on admission, but resolution of symptoms without recurrance-- see above ASA 81mg daily, added Lipitor 40mg would continue this at discharge (7) Anemia of chronic disease: Normocytic B12 deficiency and on supplementation -- B12 level actually elevated. Iron 81, TIBC 253, transferrin 222, trans % sat 26, ferritin 347 (8) Status post placement of cardiac pacemaker: pacemaker interrogation ordered as above (9) Deep vein thrombosis (DVT) of left lower extremity: chronic Eliquis Repeat Venous Doppler -- chronic non-occlusive Continue Eliquis indefinitely (10) Elevated troponin: Trop 0.06 on admission --> increased to 0.117 (no CP/sob reported), trending down on repeat but still 0.107 Had elevations last admission up to 0.198 as wel and was 0.156 prior to discharge ECHO nl EF mod to severe lvh, no rwma (11) Hypertension: BP was low in the 80s when he stood up on Monday. BP recovered, will monitor Blood pressure. May consider moving some BP meds to nights. Medically stable for discharge Total Time Total Time Spent Total Time Spent (In Minutes): 32 Discharge Plan Discharge Items Patient Disposition: Home - Self-Care Reason For Visit: WEAKNESS Discharge Diagnosis: Weakness Activity: Resume your previous activity Non-emergency contact: Primary Care Provider Call non-emergency contact if: you have any medication questions Follow-up/Referrals: Tino Pete, [Primary Care Provider] - Diet: Carb Consistent or DM2 and Low Sodium (2gm) Addtl Attending Provider Instructions: You were found to be weak when you came in. This could be caused by multiple issues however, in your case, it may be related with low blood sugar and low blood pressure. In regards to your blood sugar, we will cut back on your to 15 units instead of 30. In regards to your BP, will cut back on your medications. Lisinopril will now be in the evening but at a lower dose 20 mg PO PM. Also will stop hydralazine given that it may increase your blood pressure if you miss a dose, and it appears to have been lowering your blood pressure too much. For the past 48 hours, your blood pressure has been stable. Will discharge you to SNF.'' Follow up with PCP in 1-2 weeks Pending Studies at Discharge: No Stand-Alone Forms: My [facility] [employer] Smoking Cessation Medications and DC Order Prescriptions: New atorvastatin 40 mg Tablet 40 mg PO HS Qty: 30 RF: 0 lisinopril 20 mg Tablet 20 mg PO QPM Qty: 30 RF: 0 metoprolol succinate 200 mg tablet extended release 24 hr 200 mg PO PM Qty: 30 RF: 0 Continued felodipine 10 mg tablet extended release 24 hr 10 mg PO DAILY Qty: 90 RF: 3 (DME) OneTouch Ultra Blue Test Strip Strip See Dose Instructions .ROUTE .MEDSUPPLY Qty: 100 RF: 6 solifenacin [Vesicare] 10 mg tablet 10 mg PO DAILY Qty: 30 RF: 2 Eliquis 5 mg tablet 5 mg PO BID Qty: 60 RF: 5 cholecalciferol (vitamin D3) 25 mcg (1,000 unit) capsule 1,000 units PO DAILY Qty: 90 RF: 3 aspirin 81 mg tablet,chewable 81 mg PO DAILY RF: 0 calcium carb-vitamin D3-vit K2 600 mg-1,000 unit-90 mcg tablet 1 tab PO DAILY RF: 0 allopurinol 300 mg tablet 300 mg PO DAILY RF: 0 acetaminophen 325 mg Tablet 650 mg PO Q4H PRN (Reason: [place]/fever/pain) Qty: 30 RF: 0 polyethylene glycol 3350 [Miralax] 17 gram Powder In Packet 17 g PO DAILY Qty: 30 RF: 0 isosorbide mononitrate 30 mg Tablet Extended Release 24 Hr 60 mg PO DAILY Qty: 60 RF: 0 cyanocobalamin (vitamin B-12) 500 mcg Tablet 1,000 mcg PO QAM Qty: 60 RF: 0 tamsulosin 0.4 mg Capsule 0.4 mg PO BID Qty: 60 RF: 0 docusate sodium 100 mg Capsule 100 mg PO BID Qty: 60 RF: 0 finasteride [Proscar] 5 mg Tablet 5 mg PO QAM Qty: 30 RF: 0 Changed Toujeo SoloStar U-300 Insulin 300 unit/mL (1.5 mL) insulin pen 15 unit SUBCUT DAILY 30 Days Qty: 1.5 RF: 0 Discontinued fenofibrate micronized 67 mg capsule 67 mg PO DAILY Qty: 90 RF: 3 lisinopril 40 mg tablet 40 mg PO DAILY Qty: 90 RF: 3 metoprolol tartrate 100 mg tablet 100 mg PO BID Qty: 180 RF: 3 simvastatin 10 mg tablet 10 mg PO DAILY Qty: 90 RF: 1 hydralazine 25 mg Tablet 25 mg PO BID Qty: 60 RF: 0 gabapentin 100 mg Capsule 100 mg PO TID Qty: 90 RF: 0 Discharge Orders: Discharge Order (Routine); Ordered 10/29/20 Ordered By: Lamont Florez Admission Data Admit Date/Time: 10/17/20 11:20 Attending Provider: Lamont Florez Admit Provider: Toni Norman Primary Care Provider: Tino Pete Other Providers: [facility] ; [place] ; Tremaine Sales Gregory M ; Yingling, Christophe T. 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
--- NOTE | 2020-11-09 09:39 | Coding Query ---
CODING QUERY To promote full compliance with coding requirements relating to patient care, provider participation is requested in all cases of communication analyst uncertainty. Please assist us with the question(s) below: Coding Question(s): Pt presenting from [facility], facial droop and slurring speech. Progress notes document Brain TIA, suspected on admission, resolving of symptoms w/o reoccurrence. Please check below the phrase that describes the diagnosis, after study, that prompted this Inpatient Stay. Thanks for your help! MACIEL Armstrong [facility] Physician's Response(s): The patient was admitted/treated for TIA ___x___ The patient was not treated for TIA Cannot Clinically Correlate if the TIA was treated during this IP stay Other: Please document: Principal Diagnosis: "that condition established after study, to be chiefly responsible for occasioning the admission of the patient to the hospital for care." Co-Existing Principal Diagnosis: "when two or more diagnoses equally meet the criteria for principal diagnosis as determined by the circumstances of admission, diagnostic work up, and/or therapy provided, and the Alphabetic Index, Tabular List, or another coding guideline does not provide sequencing direction, any one of the diagnoses may be sequenced first." "When the physician has documented what appears to be a current diagnosis in the body of the record, but has not included the diagnosis in the final diagnostic statement, the physician should be asked whether the diagnosis should be added." (Source Coding Clinic 2 QTR90. p3-4) [facility]
== END 2020-10-29 14:05 | DRG 315 ==
LOC: ED 15:07 → 2N 15:07 → SUATTDRO 10-17 11:20 → 3W 10-27 22:04

== ENCOUNTER 2020-11-14 12:48 | Inpatient (IN) ==
--- NOTE | 2020-11-14 13:49 | Emergency Department Note ---
Impression & Plan Bilateral leg weakness, Elevated troponin, Hypomagnesemia, Failure of outpatient treatment ED Provider Note NAME: ELISABETH DUGAN AGE: 75 SEX: M : 1945 ARRIVES VIA: Ambulance INFORMANT: [Patient][nursing] ED PROVIDER(S): [Nasim Damon MD] CHIEF COMPLAINT: Weakness HISTORY OF PRESENT ILLNESS: The patient is a 75-year-old male who presents with increasing leg weakness, the right side more than the left. The patient states that he just left rehab this morning. His brother was to care for him and he was too weak to be cared for by his brother. The ambulance was called. The patient denies any fever, no urinary complaints. He is not short of breath. There is no chest pain or abdominal pain. The patient states that he does have a history of DVT and is on Eliquis. He also has a history of some issues with his back which they think may be contributing to his leg weakness. The patient denies any recent fall. He states he is not in pain. He is just w eak. As per the nursing staff, he is a 2 person assist. He cannot walk on his own or with one person helping. REVIEW OF SYSTEMS: See HPI for pertinent positives and negatives. A total of ten systems were reviewed and were otherwise negative. PMHx/PSHx: See Below SOCIAL HISTORY: See Below. PHYSICAL EXAM: GENERAL: Patient is in no acute distress. HEENT: No acute trauma, normocephalic atraumatic, mucous membranes moist, no nasal congestion, no scleral icterus. NECK: No stridor, no adenopathy, no meningismus, trachea is midline. LUNGS: Clear to auscultation bilaterally, no wheeze, no rhonchi, breath sounds equal. HEART: Without murmurs gallops or rubs, regular rate and rhythm. ABDOMEN: Soft, nontender, bowel sounds positive, no hernias, no peritonitis. EXTREMITIES: No cyanosis, moderate bilateral pedal edema worse on the left, full range of motion of all the joints without pain or difficulty, no signs for acute trauma. NEUROLOGIC: Oriented x 3. Able to lift both legs off of the wheelchair and extend both knees. SKIN: No rash, no jaundice, no diaphoresis. DIFFERENTIAL DIAGNOSIS: Infection, dehydration, metabolic abnormality, hypo/hyperglycemia, DVT, debilitation, spinal stenosis, neuropathy, electrolyte disturbance, anemia, hypoxia, cardiac sources, intracerebral event, toxicologic issues, stroke, TIA, as well as other pathologies. EMERGENCY DEPARTMENT COURSE/PROCEDURES: ECG: Indication was weakness. The ECG shows what appears to be a sinus bradycardia with a first-degree AV block. There is a right bundle branch block present. The rate is 58. There are no PVCs. No ST elevation. The QTc is 445. Compared to an ECG from 16 October 2020, his pacemaker function is no longer active. Continuous Cardiac Monitoring: An order was placed for continuous cardiac monitoring. The monitor shows a rate of 71 with sinus rhythm with a first- degree AV block. MEDICAL DECISION MAKING: There is no leukocytosis. The patient is anemic but this is baseline when l ooking back at previous testing. There was a normal platelet count. There was some renal insufficiency noted with a creatinine of 1.6. The patient has a history of renal insufficiency. Magnesium somewhat low at 1.7. There was an elevation to the cardiac troponin however, looking back at previous testing, this has been an ongoing issue and is apparently chronic. There is no concerning liver enzyme elevation. No evidence for thyroid dysfunction. Urinalysis results are pending. Covid testing returned negative. Chest x-ray did not show pneumonia or CHF. Bilateral lower extremity ultrasound showed some chronic DVT, no acute DVT found. The patient was given IV magnesium for the lower magnesium value. The patient presents by ambulance for weakness. He is a two-person assist as per the nursing staff and cannot be cared for by his brother at home. He was just discharged from rehab earlier today. The patient is in need of a higher level of care. He is being hospitalized for potential repeat rehab care and/or eventual personal home care transfer. He is not stable for discharge given his current living situation and care requirements. The patient was seen by case management. I did speak with the patient and the on-call hospitalist. Past Med/Surg History Medical History Anemia of chronic disease BPH with obstruction/lower urinary tract symptoms CKD (chronic kidney disease) Deep vein thrombosis (DVT) of left lower extremity Diabetes Elevated troponin Hypertension Hypertrophic obstructive cardiomyopathy (HOCM) Low back pain Mobitz (type) II atrioventricular block Proteinuria Sinus node dysfunction Skin carcinoma Spinal stenosis Subclavian vein thromboembolism, acute Syncope and collapse Surgical History H/O arthroscopy of knee History of cataract surgery Status post placement of cardiac pacemaker Family History Mother Ovarian cancer Diabetes Father Diabetes Unknown Coronary heart disease Denies family history of Prostate cancer Myocardial infarction Breast cancer Colorectal cancer Social History Smoking Status: Never smoker Second Hand Exposure: No; Hx Alcohol Use: No Hx Substance Use: No Preferred Language: Kazakh Communication Ability: Effective Counter Former Required: No Beliefs That Will Affect Care: None marital status: / Current Living Situation: Family Current Living Situation Comment: home with brother, was just [facility] current occupational status: retired Feels Safe at Home: Yes Childhood Exposure to Second-Hand Smoke: No caffeine: Yes Dental Care, Regularly: Yes Physical Activity Frequency: 1-2 Times per Week Seatbelt Use: always Sunscreen Use: No Assistive Devices: Walker Allergies Allergies Allergy/AdvReac Type Severity Reaction Status Date / Time No Known Allergies Allergy ` Verified 11/14/20 14:34 Home Meds Home Medications Medication Instructions Recorded Confirmed allopurinol 300 mg tablet 300 mg PO DAILY 10/19/20 11/14/20 aspirin 81 mg chewable tablet 81 mg PO DAILY 10/19/20 11/14/20 calcium carbonate 600 mg-vitamin 1 tab PO DAILY tab 10/19/20 11/14/20 D3 1,000 unit-vitamin K2 90 mcg tab docusate sodium 100 mg capsule 100 mg PO BIDM 11/14/20 11/14/20 isosorbide mononitrate 60 mg 60 mg PO QAM 11/14/20 11/14/20 tablet,extended release 24 hr nystatin 100,000 unit/gram topical 1 applic TOPICAL DAILY 11/14/20 11/14/20 cream oxybutynin chloride 10 mg 10 mg PO DAILY 11/14/20 11/14/20 tablet,extended release 24 hr sertraline 25 mg tablet 25 mg PO DAILY 11/14/20 11/14/20 Previous Rx's Medication Instructions Recorded cholecalciferol (vitamin D3) 25 1,000 units PO DAILY #90 cap 09/09/19 mcg (1,000 unit) capsule felodipine 10 mg tablet,extended 10 mg PO DAILY #90 tab 02/04/20 release 24 hr blood sugar diagnostic (OneTouch #100 ea 06/29/20 Ultra Blue Test Strip) apixaban 5 mg tablet (Eliquis) 5 mg PO BID #60 tab 07/13/20 acetaminophen 325 mg tablet 650 mg PO Q4H PRN #30 tab 10/09/20 cyanocobalamin (vitamin B-12) 500 1,000 mcg PO QAM #60 tab 10/09/20 mcg tablet finasteride 5 mg tablet (Proscar) 5 mg PO QAM #30 tab 10/09/20 polyethylene glycol 3350 17 gram 17 g PO DAILY #30 ea 10/09/20 oral powder packet (Miralax) tamsulosin 0.4 mg capsule 0.4 mg PO BID #60 cap 10/09/20 atorvastatin 40 mg tablet 40 mg PO HS #30 tab 10/29/20 insulin glargine U-300 conc 300 15 unit SUBCUT DAILY 30 Days #1.5 10/29/20 unit/mL (1.5 mL) subcutaneous pen ml (Toujeo SoloStar U-300 Insulin) lisinopril 20 mg tablet 20 mg PO QPM #30 tab 10/29/20 metoprolol succinate 200 mg 200 mg PO PM #30 tab 10/29/20 tablet,extended release 24 hr Results & Data (ED) Vital Signs Vital Signs - 24 hr 11/14/20 12:55 Temperature 36.5 C Temperature Source Oral Pulse Rate 71 Pulse Rhythm Regular Pulse Strength Normal Respiratory Rate 20 Respiratory Effort / Characteristics Non-Labored Spontaneous Respiratory Depth Normal Respiratory Pattern Regular Blood Pressure 157/80 H Blood Pressure Mean 105 Blood Pressure Position Sitting Pulse Oximetry 98 Sepsis Recent Fever Within 48 Hours No Sepsis New/Unexplained Change in Mental Status No Sepsis Action Taken by Nursing No Action Required Home Medications Current Medication List: was personally reviewed by me Laboratory Data Attestation: I reviewed the patient's lab results. Result diagrams: 11/14/20 14:09 11/14/20 14:09 Lab Results 11/14/20 11/14/20 11/14/20 Range/Units 14: 14:09 15:30 WBC 5.36 (4.8-10.8) K/uL RBC 3.47 L (4.7-6.1) M/uL Hgb 10.8 L (14.0-18.0) g/dL Hct 32.1 L (42-52) % MCV 92.5 (80-100) fL MCH 31.1 (25-34) pg MCHC 33.6 (32-36) g/dL RDW Std Deviation 45.6 (36.4-46.3) fL RDW Coeff of Nona 13.6 (11.5-14.5) % Plt Count 148 (130-400) K/uL MPV 11.1 H (7.4-10.4) fL Immature Gran % (Auto) 0.2 % Neut % (Auto) 61.5 % Lymph % (Auto) 27.4 % Nash % (Auto) 8.6 % Eos % (Auto) 2.1 % Baso % (Auto) 0.2 % Neut # (Auto) 3.30 (1.4-6.5) K/uL Lymph # (Auto) 1.47 (1.2-3.4) K/uL Nash # (Auto) 0.46 (0.11-0.59) K/uL Eos # (Auto) 0.11 (0-0.5) K/uL Baso # (Auto) 0.01 (0-0.2) K/uL Immature Gran # (Auto) 0.01 (0.00-0.02) K/uL Sodium 140 (136-145) mmol/L Potassium 3.7 (3.5-5.1) mmol/L Chloride 109 H (98-107) mmol/L Carbon Dioxide 24 (21-32) mmol/L Anion Gap 7.0 (3-11) BUN 35 H (7-18) mg/dl Creatinine 1.61 H (0.6-1.4) mg/dl Est Cr Clr Drug Dosing Not Reportable Est GFR ( Amer) 47.4 ml/min Est GFR (Non-Af Amer) 40.9 ml/min BUN/Creatinine Ratio 21.5 H (10-20) Glucose 108 H (70-99) mg/dl Calcium 9.5 (8.5-10.1) mg/dl Magnesium 1.7 L (1.8-2.4) mg/dl Total Bilirubin 0.7 (0.2-1) mg/dl AST 25 (15-37) U/L ALT 17 (12-78) U/L Alkaline Phosphatase 82 (45-117) U/L Troponin I 0.103 H* (0-0.045) ng/ml Total Protein 7.3 (6.4-8.2) gm/dl Albumin 3.8 (3.4-5.0) gm/dl Globulin 3.5 (2.5-4.0) gm/dl Albumin/Globulin Ratio 1.1 (0.9-2) TSH 2.500 (0.300-4.500) uIu/ml COVID-19 Eval Order Covid19 at [facility] SARS-CoV-2 (PCR) (Negative) 11/14/20 Range/Units 15:30 WBC (4.8-10.8) K/uL RBC (4.7-6.1) M/uL Hgb (14.0-18.0) g/dL Hct (42-52) % MCV (80-100) fL MCH (25-34) pg MCHC (32-36) g/dL RDW Std Deviation (36.4-46.3) fL RDW Coeff of Nona (11.5-14.5) % Plt Count (130-400) K/uL MPV (7.4-10.4) fL Immature Gran % (Auto) % Neut % (Auto) % Lymph % (Auto) % Nash % (Auto) % Eos % (Auto) % Baso % (Auto) % Neut # (Auto) (1.4-6.5) K/uL Lymph # (Auto) (1.2-3.4) K/uL Nash # (Auto) (0.11-0.59) K/uL Eos # (Auto) (0-0.5) K/uL Baso # (Auto) (0-0.2) K/uL Immature Gran # (Auto) (0.00-0.02) K/uL Sodium (136-145) mmol/L Potassium (3.5-5.1) mmol/L Chloride (98-107) mmol/L Carbon Dioxide (21-32) mmol/L Anion Gap (3-11) BUN (7-18) mg/dl Creatinine (0.6-1.4) mg/dl Est Cr Clr Drug Dosing Est GFR ( Amer) ml/min Est GFR (Non-Af Amer) ml/min BUN/Creatinine Ratio (10-20) Glucose (70-99) mg/dl Calcium (8.5-10.1) mg/dl Magnesium (1.8-2.4) mg/dl Total Bilirubin (0.2-1) mg/dl AST (15-37) U/L ALT (12-78) U/L Alkaline Phosphatase (45-117) U/L Troponin I (0-0.045) ng/ml Total Protein (6.4-8.2) gm/dl Albumin (3.4-5.0) gm/dl Globulin (2.5-4.0) gm/dl Albumin/Globulin Ratio (0.9-2) TSH (0.300-4.500) uIu/ml COVID-19 Eval Order SARS-CoV-2 (PCR) NEGATIVE (Negative) Administered Medications Discontinued Medications Magnesium Sulfate/Dextrose (Magnesium Sulfate / D5w) 1 gm in 100 mls @ 100 mls/hr IV NOW STA Stop: 11/14/20 16:04 Last Admin: 11/14/20 15:52 Dose: 100 mls/hr Documented by: [id number] Imaging Data Radiologist's Impression: Chest X-Ray 11/14/20 13:44 XR chest 1V portable HISTORY: 75 years-old Male weakness . Acute weakness COMPARISON: Chest radiograph 10/01/2020 TECHNIQUE: Portable AP view of the chest FINDINGS: Unchanged cardiomediastinal and hilar silhouettes. Left subclavian pacer. No pneumothorax, pleural effusion, airspace consolidation or overt pulmonary edema. Spondylitic spurring of the spine. IMPRESSION: No acute process. ACT 112: Negative or not required by law. The above report was generated using voice recognition software. It may contain grammatical, syntax or spelling errors. Electronically signed by: Tariq Lo M.D. 11/14/2020 2:03 PM Venous Doppler Study 11/14/20 13:44 BILATERAL LOWER EXTREMITY VENOUS DOPPLER HISTORY: Acute pain and swelling of the right lower leg edema, weak COMPARISON STUDY: 10/16/2020 FINDINGS: There is normal compressibility, flow, and augmentation within the bilateral lower extremity deep venous systems. Chronic linear stranding of the left popliteal vein. The left calf veins are suboptimally visualized secondary to lower extremity edema. IMPRESSION: 1. No acute occlusive deep venous thrombus. 2. Nonocclusive chronic appearing deep venous thrombus of the left lower extremity redemonstrated. ACT 112: Negative or not required by law. Electronically signed by: Tariq Lo M.D. 11/14/2020 3:49 PM Discharge Plan Visit Data Chief Complaint: Leg Injury/Pain Stated Complaint: leg numbness/anxiety ED Provider: Nasim Damon Discharge Problem: Bilateral leg weakness, Elevated troponin, Hypomagnesemia, Failure of outpatient treatment Patient Disposition: Admitted As Inpatient Condition: Fair Forms Stand Alone Forms: My [facility] [employer] Prescriptions Prescriptions: No Action felodipine 10 mg tablet extended release 24 hr 10 mg PO DAILY Qty: 90 RF: 3 (DME) OneTouch Ultra Blue Test Strip Strip See Dose Instructions .ROUTE .MEDSUPPLY Qty: 100 RF: 6 Eliquis 5 mg tablet 5 mg PO BID Qty: 60 RF: 5 cholecalciferol (vitamin D3) 25 mcg (1,000 unit) capsule 1,000 units PO DAILY Qty: 90 RF: 3 aspirin 81 mg tablet,chewable 81 mg PO DAILY RF: 0 calcium carb-vitamin D3-vit K2 600 mg-1,000 unit-90 mcg tablet 1 tab PO DAILY RF: 0 allopurinol 300 mg tablet 300 mg PO DAILY RF: 0 atorvastatin 40 mg Tablet 40 mg PO HS Qty: 30 RF: 0 lisinopril 20 mg Tablet 20 mg PO QPM Qty: 30 RF: 0 metoprolol succinate 200 mg tablet extended release 24 hr 200 mg PO PM Qty: 30 RF: 0 Toujeo SoloStar U-300 Insulin 300 unit/mL (1.5 mL) insulin pen 15 unit SUBCUT DAILY 30 Days Qty: 1.5 RF: 0 acetaminophen 325 mg Tablet 650 mg PO Q4H PRN (Reason: [place]/fever/pain) Qty: 30 RF: 0 polyethylene glycol 3350 [Miralax] 17 gram Powder In Packet 17 g PO DAILY Qty: 30 RF: 0 cyanocobalamin (vitamin B-12) 500 mcg Tablet 1,000 mcg PO QAM Qty: 60 RF: 0 tamsulosin 0.4 mg Capsule 0.4 mg PO BID Qty: 60 RF: 0 finasteride [Proscar] 5 mg Tablet 5 mg PO QAM Qty: 30 RF: 0 oxybutynin chloride 10 mg Tablet Extended Release 24hr 10 mg PO DAILY RF: 0 isosorbide mononitrate 60 mg Tablet Extended Release 24 Hr 60 mg PO QAM RF: 0 nystatin 100,000 unit/gram Cream 1 applic TOPICAL DAILY RF: 0 sertraline 25 mg Tablet 25 mg PO DAILY RF: 0 docusate sodium 100 mg capsule 100 mg PO BIDM RF: 0 Referrals Referrals: [facility] [Non-Staff] -
--- NOTE | 2020-11-14 14:04 | XRay Report ---
XR chest 1V portable HISTORY: 75 years-old Male weakness . Acute weakness COMPARISON: Chest radiograph 10/01/2020 TECHNIQUE: Portable AP view of the chest FINDINGS: Unchanged cardiomediastinal and hilar silhouettes. Left subclavian pacer. No pneumothorax, pleural ef fusion, airspace consolidation or overt pulmonary edema. Spondylitic spurring of the spine. IMPRESSION: No acute process. ACT 112: Negative or not required by law. The above report was generated using voice recognition software. It may contain grammatical, syntax o r spelling errors. Electronically signed by: Tariq Lo M.D. 11/14/2020 2:03 PM
[2020-11-14 14:42] LABS: Basophils # (auto) 0.01 K/uL (0-0.2); Basophils % (auto) 0.2 %; Eosinophils # (auto) 0.11 K/uL (0-0.5); Eosinophils % (auto) 2.1 %; Hematocrit (blood only) 32.1 % (42-52); Hemoglobin 10.8 g/dL (14.0-18.0); Immature Granulocytes # (auto) 0.01 K/uL (0.00-0.02); Immature Granulocytes % (auto) 0.2 %; Lymphocytes # (auto) 1.47 K/uL (1.2-3.4); Lymphocytes % (auto) 27.4 %; Mean Corpuscular Hemoglobin 31.1 pg (25-34); Mean Corpuscular Hgb Conc 33.6 g/dL (32-36); Mean Corpuscular Volume 92.5 fL (80-100); Mean Platelet Volume 11.1 fL (7.4-10.4); Monocytes # (auto) 0.46 K/uL (0.11-0.59); Monocytes % (auto) 8.6 %; Neutrophils % (auto) 61.5 %; Platelet Count 148 K/uL (130-400); RDW Coefficient of Variation 13.6 % (11.5-14.5); RDW Standard Deviation 45.6 fL (36.4-46.3); Red Blood Count 3.47 M/uL (4.7-6.1); White Blood Count 5.36 K/uL (4.8-10.8)
[2020-11-14 15:01] LABS: Alanine Aminotransferase 17 U/L (12-78); Albumin Level 3.8 gm/dl (3.4-5.0); Aspartate Aminotransferase 25 U/L (15-37); BUN Creatinine Ratio 21.5 (10-20); Blood Urea Nitrogen 35 mg/dl (7-18); Calcium 9.5 mg/dl (8.5-10.1); Carbon Dioxide 24 mmol/L (21-32); Chloride 109 mmol/L (98-107); Est GFR (African American) 47.4 ml/min; Est GFR (Non-African American) 40.9 ml/min; Glucose 108 mg/dl (70-99); Magnesium 1.7 mg/dl (1.8-2.4); Potassium 3.7 mmol/L (3.5-5.1); Sodium 140 mmol/L (136-145)
[2020-11-14] MEDS ORDERED: MAGNESIUM SULFATE / D5W 1 GM/100 ML BAG IV STA (15:05)
[2020-11-14 15:14] LABS: Albumin Globulin Ratio 1.1 (0.9-2); Alkaline Phosphatase 82 U/L (45-117); Bilirubin,Total 0.7 mg/dl (0.2-1); Globulin 3.5 gm/dl (2.5-4.0); Total Protein 7.3 gm/dl (6.4-8.2); Troponin I 0.103 ng/ml (0-0.045)
--- NOTE | 2020-11-14 15:50 | Ultrasound Report ---
BILATERAL LOWER EXTREMITY VENOUS DOPPLER HISTORY: Acute pain and swelling of the right lower leg edema, weak COMPARISON STUDY: 10/16/2020 FINDINGS: There is normal compressibility, flow, and augmentation within the bilateral lower extremit y deep venous systems. Chronic linear stranding of the left popliteal vein. The left calf veins are s uboptimally visualized secondary to lower extremity edema. IMPRESSION: 1. No acute occlusive deep venous thrombus. 2. Nonocclusive chronic appearing deep venous thrombus of the left lower extremity redemonstrated. ACT 112: Negative or not required by law. Electronically signed by: Tariq Lo M.D. 11/14/2020 3:49 PM
--- NOTE | 2020-11-14 16:56 | History & Physical Report ---
Date of Service November 14, 2020 Assessment & Plan (1) Generalized weakness: Plan: Impression: Patient recently discharged from [facility] and was at [facility] for rehab. He was discharged on 11/13/2020 to live with his brother who was in his 70s. Today the patient had an episode of generalized weakness. He was put in a chair by his brother who then left for a family event. Within 30 minutes the patient had a panic attack and was concerned it would fall out of the chair and would not be able to get up and called 911 The patient had no actual fall today and has no acute exacerbation of weakness or other issues. Patient had a lumbar CT scan 10/16/2020 which shows significant stenosis. Patient has no further neurological changes Patient is found to be a two-person assist. Was discharged home to live with his brother with no one else in the home At this time the brother is unable to take care of the patient. We are consulte d to admit for social placement until patient can return to [facility] PT/OT ordered Continue usual home medications Fall precautions are in place Continue with strengthening and conditioning (2) Neurogenic claudication due to lumbar spinal stenosis: Plan: CT scan of the spine 10/16/2020 Patient seen in consult [facility] by orthospine with Dr. Sanchez 10/17/2020 It is his opinion that the anterior listhesis at L4-L5 is undoubtedly creating leg weakness and limitation with standing walking. Patient refused surgical intervention at that time In the event the patient would require further evaluation, Dr. Sanchez would be glad to follow him per his previous note Patient denies any significant change in pain. He may benefit from a trial of gabapentin Continue to follow with PT OT evaluation and treatment (3) Bladder outlet obstruction: Plan: Patient states he is having good urinary output Previously seen in consultation by urology on 10/18/[address] Luan Maradiaga Patient refused intervention including King catheter and surgery at that time If patient's creatinine continues to worsen, may require further intervention by urology At this point we will order a post void residual bladder scan. If patient has more than 500 cc, leave indwelling King catheter to gravity (4) Anemia of chronic disease: Plan: No acute blood loss Hemoglobin currently 10.8 g/Nazario No indication for recurrent labs at this time (5) CKD (chronic kidney disease): Plan: BUN 35, creatinine 1.61 Baseline creatinine appears to be 2 or greater We will check repeat PRP in the morning Watch fluid output (6) Hypertrophic obstructive cardiomyopathy (HOCM): Plan: Echocardiogram completed 10/18/2020 and reveals a preserved left ventricular ejection fraction of 65 to 70%. There is mild tricuspid regurgitation. There is no regional wall motion abnormality. Left ventricular systolic function is normal. There is moderate to severe left ventricular hypertrophy Currently not on any diuretics We will check a proBNP in the morning Continue to follow vital signs per protocol (7) Sinus node dysfunction: Plan: Patient has a pacemaker in place No indication for interrogation at this time Hemodynamically stable Outpatient management (8) Hypertension: Plan: Continue usual home medications Systolic blood pressure 157. I think that the systolic blood pressure will improve once patient is settled in her room Continue to monitor vital signs per protocol (9) Diabetes: Plan: No hemoglobin A1c on the chart Check A1c with morning labs At this time continue patient's usual home medication since including Toujeo Solostar 15 units subcutaneously daily We will also add NovoLog sliding scale insulin Glycemic consult requested. Appreciate their input (10) BPH with obstruction/lower urinary tract symptoms: Plan: Previously seen by urology for obstruction -see above Continue tamsulosin and oxybutynin Monitor fluid output (11) Deep vein thrombosis (DVT) of left lower extremity: Plan: Chronically on Eliquis for anticoagulation Repeat lower extremity duplex today with no indication of deep venous thrombus Continue anticoagulation Ambulate as tolerated (12) Lower extremity edema: Plan: Chronic No prior history of CHF We will check a proBNP Continue with anticoagulation for history of DVT Ambulate as tolerated PT/OT consult KEVYN lee as tolerated (13) Ambulatory dysfunction: Plan: Secondary to spinal stenosis Patient indicates he is able to walk but appears to be a two-person assist per reports from ER staff PT/OT evaluation treatment Fall precautions ordered We will need placement at [facility] when bed is available (14) Anxiety and depression: Plan: Chronic Continue usual home medications including sertraline May warrant adding lorazepam but will hold for now (15) Cardiomyopathy: Plan: Echocardiogram preserved left ventricular ejection fraction Continue beta-nati and ANG inhibitor (16) DVT prophylaxis: Plan: Continue Eliquis Ambulate as tolerated Out of bed to chair as tolerated Please refer to Dr. Chiang's addendum for further recommendations and corrections History of Present Illness Chief Complaint: Generalized weakness Primary Care Provider: DO Dr. Gabriel Truong This is a 75-year-old male with a complicated past medical history significant for CKD, left lower extremity DVT, ambulatory dysfunction, anxiety and depression, urinary incontinence, BPH with LUTS, diabetes mellitus, memory impairment, anemia of chronic disease, hypertrophic obstructive cardiomyopathy, proliferative diabetic retinopathy, squamous cell carcinoma, hypertriglyceridemia, vitamin D deficiency, secondary hyperparathyroidism, pacemaker, cardiomyopathy and spinal stenosis and recent admission for [id number]. Patient was discharged from [facility] and [facility]. He was discharged from [facility] yesterday to go live with his brother who is in the 70s. His brother lives alone. His brother left the house today for less than 2 hours to go to a and within 30 minutes of leaving the house the patient reports that he had a panic attack and called 911. He was brought to [facility] emergency department and found to be at least a 2 person assist for ambulation. The brother lives alone and is unable to care for the patient. In the emergency department a bilateral lower extremity duplex was completed is negative for DVT. The patient has a history of DVT and is currently anticoagulated on Eliquis. The patient admits to some weight gain since discharge from the hospital which he feels is fluid. Patient denies any fever, chills, sweats, rigors. He has no shortness of breath. He feels as though he had a panic attack when he called 911. He is very anxious about placement. The patient states that he is fully vaccinated for Covid. He has no Covid symptoms. Allergies Allergy/AdvReac Type Severity Reaction Status Date / Time No Known Allergies Allergy ` Verified 11/14/20 14:34 Home Medications Medication Instructions Recorded Confirmed Type cholecalciferol (vitamin D3) 25 1,000 units PO DAILY #90 cap 09/09/19 11/14/20 Rx mcg (1,000 unit) capsule felodipine 10 mg tablet,extended 10 mg PO DAILY #90 tab 02/04/20 11/14/20 Rx release 24 hr blood sugar diagnostic (OneTouch #100 ea 06/29/20 09/14/20 Rx Ultra Blue Test Strip) apixaban 5 mg tablet (Eliquis) 5 mg PO BID #60 tab 07/13/20 11/14/20 Rx acetaminophen 325 mg tablet 650 mg PO Q4H PRN #30 tab 10/09/20 11/14/20 Rx cyanocobalamin (vitamin B-12) 500 1,000 mcg PO QAM #60 tab 10/09/20 11/14/20 Rx mcg tablet finasteride 5 mg tablet (Proscar) 5 mg PO QAM #30 tab 10/09/20 11/14/20 Rx polyethylene glycol 3350 17 gram 17 g PO DAILY #30 ea 10/09/20 11/14/20 Rx oral powder packet (Miralax) tamsulosin 0.4 mg capsule 0.4 mg PO BID #60 cap 10/09/20 11/14/20 Rx allopurinol 300 mg tablet 300 mg PO DAILY 10/19/20 11/14/20 History aspirin 81 mg chewable tablet 81 mg PO DAILY 10/19/20 11/14/20 History calcium carbonate 600 mg-vitamin 1 tab PO DAILY tab 10/19/20 11/14/20 History D3 1,000 unit-vitamin K2 90 mcg tab atorvastatin 40 mg tablet 40 mg PO HS #30 tab 10/29/20 11/14/20 Rx insulin glargine U-300 conc 300 15 unit SUBCUT DAILY 30 Days #1.5 10/29/20 11/14/20 Rx unit/mL (1.5 mL) subcutaneous pen ml (Rjucolin SoloStar U-300 Insulin) lisinopril 20 mg tablet 20 mg PO QPM #30 tab 10/29/20 11/14/20 Rx metoprolol succinate 200 mg 200 mg PO PM #30 tab 10/29/20 11/14/20 Rx tablet,extended release 24 hr docusate sodium 100 mg capsule 100 mg PO BIDM 11/14/20 11/14/20 History isosorbide mononitrate 60 mg 60 mg PO QAM 11/14/20 11/14/20 History tablet,extended release 24 hr nystatin 100,000 unit/gram topical 1 applic TOPICAL DAILY 11/14/20 11/14/20 History cream oxybutynin chloride 10 mg 10 mg PO DAILY 11/14/20 11/14/20 History tablet,extended release 24 hr sertraline 25 mg tablet 25 mg PO DAILY 11/14/20 11/14/20 History Past Med/Surg History Medical History Anemia of chronic disease BPH with obstruction/lower urinary tract symptoms CKD (chronic kidney disease) Deep vein thrombosis (DVT) of left lower extremity Diabetes Elevated troponin Hypertension Hypertrophic obstructive cardiomyopathy (HOCM) Low back pain Mobitz (type) II atrioventricular block Proteinuria Sinus node dysfunction Skin carcinoma Spinal stenosis Subclavian vein thromboembolism, acute Syncope and collapse Surgical History H/O arthroscopy of knee History of cataract surgery Status post placement of cardiac pacemaker Family History Mother Ovarian cancer Diabetes Father Diabetes Unknown Coronary heart disease Denies family history of Prostate cancer Myocardial infarction Breast cancer Colorectal cancer Social History Smoking Status: Never smoker Second Hand Exposure: No; Hx Alcohol Use: No Hx Substance Use: No Preferred Language: Greek Communication Ability: Effective Global Supply Chain Vice President Required: No Beliefs That Will Affect Care: None marital status: / Current Living Situation: Alone Current Living Situation Comment: home with brother, was just discharged from [facility] earlier today current occupational status: retired Other Information That Helps Us Care for You: No Feels Safe at Home: Yes Safety Concerns: Feels Safe At This Time Childhood Exposure to Second-Hand Smoke: No caffeine: Yes Dental Care, Regularly: Yes Physical Activity Frequency: 1-2 Times per Week Seatbelt Use: always Sunscreen Use: No Assistive Devices: Denture - Upper, Glasses and Walker Review of Systems Review of Systems: All systems reviewed & are unremarkable except as noted in Subjective Physical Exam Physical Exam: GENERAL : No acute distress. Patient does appear anxious EYES: No icterus, gaze conjugate. Pupils equal round and reactive to light NOSE: No evidence of epistaxis MOUTH: No lesions or candidiasis. Mucosa is moist. Tongue is midline NECK: Supple LUNGS: CTA B/L, no wheezes, rales or rhonchi HEART: Regular, rate controlled. No appreciation of ectopy ABDOMEN: Soft, NT, ND, BS Present EXTREMITIES: B/L LE edema, pedal pulses intact and equal bilaterally. NEURO: A&OX3 Results & Data Results & Data ([facility]) Vital Signs (Past 12 Hours) Vital Signs Temp Pulse Resp BP Pulse Ox 11/14/20 12:55 36.5 C 71 20 157/80 H 98 Laboratory Results 11/14/20 14:09 11/14/20 14:09 Laboratory Tests 11/14/20 14:09 Magnesium 1.7 L Diagnostic Findings BILATERAL LOWER EXTREMITY VENOUS DOPPLER HISTORY: Acute pain and swelling of the right lower leg edema, weak COMPARISON STUDY: 10/16/2020 FINDINGS: There is normal compressibility, flow, and augmentation within the bilateral lower extremity deep venous systems. Chronic linear stranding of the left popliteal vein. The left calf veins are suboptimally visualized secondary to lower extremity edema. IMPRESSION: 1. No acute occlusive deep venous thrombus. 2. Nonocclusive chronic appearing deep venous thrombus of the left lower extremity redemonstrated. ACT 112: Negative or not required by law. Electronically signed by: Tariq Lo M.D. 11/14/2020 3:49 PM XR chest 1V portable HISTORY: 75 years-old Male weakness . Acute weakness COMPARISON: Chest radiograph 10/01/2020 TECHNIQUE: Portable AP view of the chest FINDINGS: Unchanged cardiomediastinal and hilar silhouettes. Left subclavian pacer. No pneumothorax, pleural effusion, airspace consolidation or overt pulmonary edema. Spondylitic spurring of the spine. IMPRESSION: No acute process. ACT 112: Negative or not required by law. The above report was generated using voice recognition software. It may contain grammatical, syntax or spelling errors. Electronically signed by: Tariq Lo M.D. 11/14/2020 2:03 PM Code Status & VTE Plan Code Status Patient desires to be a level V DNR/DNI VTE Prophylaxis Plan VTE Prophylaxis will be ordered: Yes Supervising Physician Co-Signing Physician Notes Patient seen and examined, chart reviewed, case discussed with Nasim Frances PA-C and I agree with the assessment and plan as above except as otherwise noted General: A&Ox3. NAD. Cooperative. HEENT: Atraumatic, normocephalic. Visual acuity grossly intact. Slightly hard of hearing, otherwise hearing grossly intact Pulm: CTAB A&P. -wheezes, -rales, -rhonchi. Symmetrical chest rise. No increase work of breathing. No respiratory distress. Cardiac: RRR, -mrg. Radial pulses intact and symmetrical. Abdominal: Nontender, nondistended, soft. Extremities: Bilateral lower extremity edema, PT pulses intact. Ankle dorsiflexion/plantar flexion intact, patient unable to stand independently due to weakness. Hip flexion 4 -/5 in the sitting position patient to soft touch intact in hands and feet. All labs and images reviewed Christopher Larkin is a 75-year-old male with a past medical history of CKD, lower extremity DVT on DOAC anticoagulation, spinal stenosis with ambulatory dysfunction, anxiety/depression, urinary incontinence, DM, chronic anemia, hypertrophic cardiomyopathy, and cardiomyopathy with recent admission for strokelike symptoms was previously discharged to [facility] who was admitted for a panic attack and ambulatory dysfunction. Patient was recovering at [facility] for which she went to live with the care of his brother who lives alone but who is unable to provide care for the patient after he was found to be a two- person assist. When is admitted for ambulatory dysfunction with foster care social worker and placement. He is noted to have increased swelling in his legs in the emergency department on admission, bilateral duplex does not show any DVT. Continue apixaban therapy. Lower extremity edema consistent with venous stasis edema, patient's lungs are clear without evidence of pulmonary edema on exam, r ecommend elevating the legs and may benefit from compression wraps. Case management consulted, PT/OT consulted. PG Care Time/CCT Total # of Minutes Spent Total Time Spent with Patient: Total time spent is greater than 50% in coordination of care (as documented) at patient's floor/unit and/or counseling patient: 60 minutes Coding Level of Care Code INT OBSERVATION CARE 50M LVL 2 Diagnoses Generalized weakness R53.1 Neurogenic claudication due to lumbar spinal stenosis M48.062 Bladder outlet obstruction N32.0 Anemia of chronic disease D63.8 CKD (chronic kidney disease) N18.4 Chronic kidney disease stage: stage 4 (severe) Hypertrophic obstructive cardiomyopathy (HOCM) I42.1 Sinus node dysfunction I49.5 Hypertension I10 Diabetes E11.9 BPH with obstruction/lower urinary tract symptoms N40.1; N13.8 Deep vein thrombosis (DVT) of left lower extremity I82.402 Lower extremity edema R60.0 Ambulatory dysfunction R26.2 Anxiety and depression F41.9; F32.9 Cardiomyopathy I42.9 DVT prophylaxis Z29.9 Time Spent (min) 60 (1) CKD (chronic kidney disease) Chronic kidney disease stage: stage 4 (severe) Qualified Code(s): N18.4 - Chronic kidney disease, stage 4 (severe)
[2020-11-14 17:27] LABS: Appearance Urine Clear (Clear); Bacteria Urine Automated Negative (Negative); Bilirubin Urine Negative (Negative); Blood Urine Negative (Negative); Cast Urine Automated 0 /lpf (0-5); Color Urine Yellow; Epithelial Cell Urine Auto 0-5 /lpf (0-5); Glucose Urine UA Negative (Negative); Ketones Urine Negative (Negative); Leukocyte Esterase Urine Negative (Negative); Nitrite Urine Negative (Negative); RBC Urine Automated 0-4 /hpf (0-4); Specific Gravity Urine 1.011 (1.000-1.030); Urobilinogen Urine Negative (Negative); WBC Urine Automated 0 /hpf (0-5); pH Urine 8.5 (4.5-7.5)
[2020-11-14 17:53] LABS: Protein Urine Trace (Negative)
[2020-11-14] MEDS ORDERED: ACETAMINOPHEN 325 MG TAB PO PRN (19:00)
[2020-11-14] MEDS ORDERED: ONDANSETRON INJ 2 MG/ML 2 ML VIAL IV PRN (19:00)
[2020-11-14] MEDS ORDERED: GLUCOSE 40% GEL 15 GM TUBE PO PRN (19:00)
[2020-11-14] MEDS ORDERED: PHARMACY GLYCEMIC MGMT CONSULT PRN (19:00)
[2020-11-14] MEDS ORDERED: DEXTROSE 50% 50 ML SYRINGE IV PRN (19:00)
[2020-11-14] MEDS ORDERED: GLUCAGON FOR INJ 1 MG VIAL SQ PRN (19:00)
[2020-11-14] MEDS ORDERED: GLUCOSE 10 TABS/TUBE PO PRN (19:00)
[2020-11-14] MEDS ORDERED: ALUMINUM/MAGNESIUM SUSP 30 ML UDC PO PRN (19:00)
[2020-11-14] MEDS ORDERED: MAGNESIUM HYDROXIDE SUSP 30 ML UDC PO PRN (19:00)
[2020-11-14] MEDS ORDERED: CARBOHYDRATES FOR HYPOGLYCEMIA PO PRN (19:00)
[2020-11-14] MEDS: ATORVASTATIN 40 MG TAB PO SCH (20:55)
[2020-11-14] MEDS: APIXABAN 5 MG TABLET PO SCH (20:55)
[2020-11-14] MEDS: DOCUSATE SODIUM 100 MG CAP PO SCH (20:56)
[2020-11-14] MEDS: TAMSULOSIN HCL 0.4 MG CAP PO SCH (21:11)
[2020-11-14] MEDS: METOPROLOL SUCC 50MG EXT REL TAB PO SCH (21:12)
[2020-11-14] MEDS: lisinopril 20 MG TAB PO SCH (21:12)
--- NOTE | 2020-11-14 21:19 | Pharmacy Report ---
Pharmacy Glycemic Short Note 2 - Date of Service November 14, 2020 - Glycemic Short BSG Results (Last 24 hours): 11/14/20 14:09 Glucose 108 H OUTPATIENT ANTIDIABETIC REGIMEN: * Toujeo 15 units daily * HbA1c 5.8% on 10/02/20 ASSESSMENT: * 75 yo M admitted for weakness/anxiety. Pharmacy consulted for glycemic management * BSG of 108 mg/dL x1 only at this point * Will hold additional basal for now and re-assess in AM * Will initiate weight-based moderate stress Novolog PLAN FOR INPATIENT GLYCEMIC CONTROL: * Hold outpatient oral diabetes medications * Basal insulin * None for now. Reassess in AM * Bolus insulin * NovoLog per scale ACHS or Q6hrs while NPO * Goal Range: Low 110 mg/dL - High 140 mg/dL * Correction Factor: 25 mg/dL/unit * Nutritional / Prandial insulin per carb ratio of 1 unit per 8 grams CHO consumed PLAN FOR DISCHARGE: * tbd
[2020-11-14] MEDS: INSULIN ASPART 100 UNITS/ML 3 ML PEN SC SCH (21:25)
[2020-11-15 07:53] LABS: BUN Creatinine Ratio 21.1 (10-20); Calcium 8.7 mg/dl (8.5-10.1); Creatinine Clr Calc Pharmacy 48.6 ml/min; Est GFR (African American) 53.8 ml/min; Est GFR (Non-African American) 46.4 ml/min; Magnesium 1.7 mg/dl (1.8-2.4); Potassium 4.1 mmol/L (3.5-5.1)
[2020-11-15] MEDS: FINASTERIDE 5 MG TAB PO SCH (07:58)
[2020-11-15] MEDS: TAMSULOSIN HCL 0.4 MG CAP PO SCH ×2 (07:58→20:14)
[2020-11-15] MEDS: FELODIPINE 5 MG TABCR PO SCH (07:59)
[2020-11-15] MEDS: CALCIUM 600MG + VIT D 400 IU TAB PO SCH (07:59)
[2020-11-15] MEDS: ISOSORBIDE MONO EXTENDED REL 60 MG TABCR PO SCH (07:59)
[2020-11-15] MEDS: SERTRALINE HCL 50 MG TABLET PO SCH (07:59)
[2020-11-15] MEDS: CYANOCOBALAMIN 500 MCG TABLET (VITAMIN B-12) PO SCH (07:59)
[2020-11-15] MEDS: CHOLECALCIFEROL 1,000 UNITS 25 MCG TAB PO SCH (07:59)
[2020-11-15] MEDS: OXYBUTYNIN CHLORIDE XL 5 MG TABCR PO SCH (07:59)
[2020-11-15] MEDS: ASPIRIN 81 MG ECTAB PO SCH (08:00)
[2020-11-15] MEDS: DOCUSATE SODIUM 100 MG CAP PO SCH ×2 (08:00→17:34)
[2020-11-15] MEDS: APIXABAN 5 MG TABLET PO SCH ×2 (08:00→20:14)
[2020-11-15] MEDS: allopurinoL 300 MG TAB PO SCH (08:00)
[2020-11-15] MEDS: NYSTATIN CR 15 GM TUBE EXT SCH (08:00)
[2020-11-15] MEDS: POLYETHYLENE (MIRALAX) 17 GM PACK PO SCH (08:01)
[2020-11-15] MEDS: INSULIN ASPART 100 UNITS/ML 3 ML PEN SC SCH ×4 (08:34→20:16)
[2020-11-15] MEDS: INSULIN GLARGINE SOLOSTAR 100 UNITS/ML 3 ML PEN SC SCH (08:38)
--- NOTE | 2020-11-15 09:40 | Electrocardiogram Report ---
Test Reason : Blood Pressure : / mmHG Vent. Rate : 058 BPM Atrial Rate : 054 BPM P-R Int : 000 ms QRS Dur : 140 ms QT Int : 454 ms P-R-T Axes : 000 -17 -08 degrees QTc Int : 445 ms Poor data quality, interpretation may be adversely affected Sinus rhythm with 1st degree A-V block Right bundle branch block Abnormal ECG When compared with ECG of 16-OCT-2020 15:23, Sinus rhythm has replaced Electronic atrial pacemaker Confirmed by Osman Meier ([id number]) on 11/15/2020 9:39:36 AM Referred By: REFERRED SELF Confirmed By:Osman Meier
[2020-11-15] MEDS: MAGNESIUM OXIDE 400 MG TAB PO SCH ×2 (10:02→20:15)
--- NOTE | 2020-11-15 10:45 | Pharmacy Report ---
Pharmacy Glycemic Short Note 2 - Date of Service November 15, 2020 - Glycemic Short BSG Results (Last 24 hours): 11/14/20 11/14/20 11/15/20 14:09 21:18 06:36 Glucose 108 H 91 POC Glucose 111 H 11/15/20 08:21 Glucose POC Glucose 110 H OUTPATIENT ANTIDIABETIC REGIMEN: * Toujeo 15 units daily * HbA1c 5.8% on 10/02/20 ASSESSMENT: 11/15 * 75yo T2DM male with excellent outpatient control per recent A1c. May be too low if patient is experiencing hypoglycemia. * Pt did take his Toujeo (insulin glargine U-300) 15 units SQ AM EDITOR PRODUCER. No basal insulin given last evening. Weight based NovoLog scale started since patient does not take prandial insulin as an outpatient. None required last evening * AM fasting BSG is slightly below goal range for inpatient targets at 91/110 mg/dl. * Protocol for pharmacy to convert ordered doses of Toujeo (pt outpatient med) to Lantus on a 1:1 unit conversion, except for the initial first dose of Lantus. The recommended initial Lantus dose should be 80% of the ordered Toujeo dose that is being converted on admission. All subsequent doses will be 1:1 dosing conversion. * Since BSG slightly below goal range and NovoLog is being added will further reduce basal by ~30% (instead of recommended 20%) and titrate based on BSG trends. 11/14 * 75 yo M admitted for weakness/anxiety. Pharmacy consulted for glycemic management * BSG of 108 mg/dL x1 only at this point * Will hold additional basal for now and re-assess in AM * Will initiate weight-based moderate stress Novolog PLAN FOR INPATIENT GLYCEMIC CONTROL: * Hold outpatient oral diabetes medications * Basal insulin * Lantus 10 units SQ daily * Bolus insulin * NovoLog per scale ACHS or Q6hrs while NPO * Goal Range: Low 110 mg/dL - High 140 mg/dL * Correction Factor: 30 mg/dL/unit * Nutritional / Prandial insulin per carb ratio of 1 unit per 9 grams CHO consumed PLAN FOR DISCHARGE: * A1c is in goal range for patient. No changes needed unless patient is experiencing hypoglycemia.
[2020-11-15 16:40] LABS: Estimated Average Glucose 126 mg/dl
--- NOTE | 2020-11-15 17:25 | Hospitalist Progress Note ---
Date of Service November 15, 2020 Assessment & Plan (1) Generalized weakness: Plan: Impression: Patient recently discharged from [facility] and was at [facility] half-way for rehab. He was discharged on 11/13/2020 to live with his brother who was in his 70s. On the day of admission the patient had an episode of generalized weakness. He was put in a chair by his brother who then left for a family event. Within 30 minutes the patient had a panic attack and was concerned he would fall out of the chair and would not be able to get up and called 911 The patient had no actual fall and had no acute exacerbation of weakness or other issues. Patient had a lumbar CT scan 10/16/2020 which shows significant stenosis. Patient has no further neurological changes Patient is found to be a two-person assist. Was discharged home to live with his brother with no one else in the home At this time the brother is unable to take care of the patient. We are consulted to admit for social placement until [facility] can [facility] PT/OT ordered and completed Continue usual home medications Fall precautions are in place Continue with strengthening and conditioning Patient desires not to go back to [facility]. Case management worked extensiv nathan on this patient. Referral will be placed to [facility]. Patient willing to go to senior care facility if insurance covers it. Patient unable to live with his brother and is much as he is a two-person assist and no one else lives at the home. Discussion with the brother on date of ad mission, he states that he is not able to care for the patient and he will need to be placed. (2) Neurogenic claudication due to lumbar spinal stenosis: Plan: CT scan of the spine 10/16/2020 Patient seen in consult [place] by orthospine with Dr. Sanchez 10/17/2020 It is his opinion that the anterior listhesis at L4-L5 is undoubtedly creating leg weakness and limitation with standing walking. Patient refused surgical intervention at that time In the event the patient would require further evaluation, Dr. Sanchez would be glad to follow him per his previous note Patient denies any significant change in pain. He may benefit from a trial of gabapentin Continue to follow with PT OT evaluation and treatment (3) Bladder outlet obstruction: Plan: Post void residual of 250 mL Patient states he is having good urinary output Previously seen in consultation by urology on 10/18/[address] Luan Maradiaga Patient refused intervention including King catheter and surgery at that time If patient's creatinine continues to worsen, may require further intervention by urology Continue with post void residual bladder scan if decreased urine output. If p atient has more than 500 cc, leave indwelling King catheter to gravity (4) Anemia of chronic disease: Plan: No acute blood loss Hemoglobin currently 10.8 g/Nazario No indication for recurrent labs at this time (5) CKD (chronic kidney disease): Plan: BUN 35, creatinine 1.61 on admission and now 31/1.45 Baseline creatinine appears to be 2 or greater Watch fluid output (6) Hypertrophic obstructive cardiomyopathy (HOCM): Plan: Echocardiogram completed 10/18/2020 and reveals a preserved left ventricular ejection fraction of 65 to 70%. There is mild tricuspid regurgitation. There is no regional wall motion abnormality. Left ventricular systolic function is normal. There is moderate to severe left ventricular hypertrophy Currently not on any diuretics proBNP was 1317 Continue to follow vital signs per protocol (7) Sinus node dysfunction: Plan: Patient has a pacemaker in place No indication for interrogation at this time Hemodynamically stable Outpatient management (8) Hypertension: Plan: Continue usual home medications Blood pressure now 132/64 Continue to monitor vital signs per protocol (9) Diabetes: Plan: Hemoglobin A1c 6% At this time continue patient's usual home medication since including Toujeo Solostar 15 units subcutaneously daily We will also add NovoLog sliding scale insulin Glycemic consult requested. Appreciate their input Discharge on usual home meds (10) BPH with obstruction/lower urinary tract symptoms: Plan: Previously seen by urology for obstruction -see above Continue tamsulosin and oxybutynin Monitor fluid output (11) Deep vein thrombosis (DVT) of left lower extremity: Plan: Chronically on Eliquis for anticoagulation Repeat lower extremity duplex 11/14/2020 with no indication of deep venous thrombus Continue anticoagulation Ambulate as tolerated (12) Lower extremity edema: Plan: Chronic No prior history of CHF We will check a proBNP Continue with anticoagulation for history of DVT Ambulate as tolerated PT/OT consult KEVYN hose as tolerated (13) Ambulatory dysfunction: Plan: Secondary to spinal stenosis Patient indicates he is able to walk but appears to be a two-person assist per reports from ER staff PT/OT evaluation treatment Fall precautions ordered We will need placement at SNF when bed is available (14) Anxiety and depression: Plan: Chronic Continue usual home medications including sertraline May warrant adding lorazepam but will hold for now (15) Cardiomyopathy: Plan: Echocardiogram preserved left ventricular ejection fraction Continue beta-nati and ANG inhibitor (16) DVT prophylaxis: Plan: Continue Eliquis Ambulate as tolerated Out of bed to chair as tolerated Please refer to Dr. Chiang's addendum for further recommendations and corrections Admission and Anticipated Discharge Date Admission Date: November 14, 2020 Supervising Physician Co-Signing Physician Notes Patient seen and examined, chart reviewed, case discussed with Nasim Frances PA-C and I agree with the assessment and plan as above except as otherwise noted General: A&Ox3. NAD. Cooperative. HEENT: Atraumatic, normocephalic. Visual acuity grossly intact. Slightly hard of hearing, otherwise hearing grossly intact Pulm: CTAB A&P. -wheezes, -rales, -rhonchi. Symmetrical chest rise. No increase work of breathing. No respiratory distress. Cardiac: RRR, -mrg. Radial pulses intact and symmetrical. Abdominal: Nontender, nondistended, soft. Extremities: Bilateral lower extremity edema, PT pulses intact. Ankle dorsiflexion/plantar flexion intact, patient unable to stand independently due to weakness. All labs and images reviewed Christopher Larkin is a 75-year-old male with a past medical history of CKD, lower extremity DVT on DOAC anticoagulation, spinal stenosis with ambulatory dysfunction, anxiety/depression, urinary incontinence, DM, chronic anemia, hypertrophic cardiomyopathy, and cardiomyopathy with recent admission for strokelike symptoms was previously discharged to [facility] who was admitted for a panic attack and ambulatory dysfunction. PT OT consulted to requalify patient, patient is not safe to live independently at home and his brother is unable to provide the care/assistance he would need with his level of strength. Referral pending for [facility], patient agreeable to go to SNF on discharge. Medically stable at this time, strength limited by deconditioning and significant lumbar stenosis for which the patient does not desire surgical intervention. He does not show signs of pulmonary edema, defer diuresis at this time although recommend elevating legs and using KEVYN hose as tolerated for stasis. Subjective Attending: Dr. Chiang Patient seen and examined at the bedside. He is sitting in a bedside chair. He is doing better today per his account. He has less pain in his legs. He feels stronger. He is much more alert and less anxious. He denies any fever or chills. He has no acute complaints. Review of Systems Review of Systems: All systems reviewed & are unremarkable except as noted in Subjective Physical Exam Physical Exam: GENERAL : No acute distress EYES: No icterus, gaze conjugate NOSE: No evidence of epistaxis MOUTH: No lesions or candidiasis NECK: Supple LUNGS: CTA B/L, no wheezes, rales or rhonchi HEART: Regular, rate controlled ABDOMEN: Soft, NT, ND, BS Present EXTREMITIES: +2 bilateral LE edema, pedal pulses intact and equal bilaterally. Able to raise feet independently for examination without assistance NEURO: A&OX3 Results & Data Results & Data ([facility]) Vital Signs (Past 12 Hours) Vital Signs Temp Pulse Resp BP Pulse Ox 11/15/20 15:36 36.4 C L 54 L 18 132/64 99 11/15/20 08:24 36.9 C 51 L 18 170/77 H 99 Laboratory Results 11/14/20 14:09 11/15/20 06:36 PG Care Time/CCT Total # of Minutes Spent Total Time Spent with Patient: Total time spent is greater than 50% in coordination of care (as documented) at patient's floor/unit and/or counseling patient: Coding Level of Care Code 04824 Subseq Hosp Care Lvl 1 Diagnoses Generalized weakness R53.1 Neurogenic claudication due to lumbar spinal stenosis M48.062 Bladder outlet obstruction N32.0 Anemia of chronic disease D63.8 CKD (chronic kidney disease) N18.4 Chronic kidney disease stage: stage 4 (severe) Hypertrophic obstructive cardiomyopathy (HOCM) I42.1 Sinus node dysfunction I49.5 Hypertension I10 Diabetes E11.9 BPH with obstruction/lower urinary tract symptoms N40.1; N13.8 Deep vein thrombosis (DVT) of left lower extremity I82.402 Lower extremity edema R60.0 Ambulatory dysfunction R26.2 Anxiety and depression F41.9; F32.9 Cardiomyopathy I42.9 DVT prophylaxis Z29.9 Time Spent (min) 15 (1) CKD (chronic kidney disease) Chronic kidney disease stage: stage 4 (severe) Qualified Code(s): N18.4 - Chronic kidney disease, stage 4 (severe)
[2020-11-15] MEDS: lisinopril 20 MG TAB PO SCH (20:14)
[2020-11-15] MEDS: ATORVASTATIN 40 MG TAB PO SCH (20:15)
[2020-11-15] MEDS: METOPROLOL SUCC 50MG EXT REL TAB PO SCH (20:16)
[2020-11-16 07:59] LABS: BUN Creatinine Ratio 22.6 (10-20); Calcium 8.4 mg/dl (8.5-10.1); Creatinine Clr Calc Pharmacy 51.1 ml/min; Est GFR (African American) 57.2 ml/min; Est GFR (Non-African American) 49.3 ml/min; Magnesium 1.8 mg/dl (1.8-2.4); Potassium 3.9 mmol/L (3.5-5.1)
[2020-11-16] MEDS: INSULIN ASPART 100 UNITS/ML 3 ML PEN SC SCH ×4 (08:59→20:50)
[2020-11-16] MEDS: TAMSULOSIN HCL 0.4 MG CAP PO SCH ×2 (09:00→20:38)
[2020-11-16] MEDS: MAGNESIUM OXIDE 400 MG TAB PO SCH ×2 (09:00→20:37)
[2020-11-16] MEDS: SERTRALINE HCL 50 MG TABLET PO SCH (09:01)
[2020-11-16] MEDS: DOCUSATE SODIUM 100 MG CAP PO SCH ×2 (09:01→16:08)
[2020-11-16] MEDS: APIXABAN 5 MG TABLET PO SCH ×2 (09:01→20:38)
[2020-11-16] MEDS: FINASTERIDE 5 MG TAB PO SCH (09:02)
[2020-11-16] MEDS: ISOSORBIDE MONO EXTENDED REL 60 MG TABCR PO SCH (09:02)
[2020-11-16] MEDS: OXYBUTYNIN CHLORIDE XL 5 MG TABCR PO SCH (09:02)
[2020-11-16] MEDS: CALCIUM 600MG + VIT D 400 IU TAB PO SCH (09:02)
[2020-11-16] MEDS: allopurinoL 300 MG TAB PO SCH (09:02)
[2020-11-16] MEDS: CHOLECALCIFEROL 1,000 UNITS 25 MCG TAB PO SCH (09:02)
[2020-11-16] MEDS: FELODIPINE 5 MG TABCR PO SCH (09:02)
[2020-11-16] MEDS: ASPIRIN 81 MG ECTAB PO SCH (09:02)
--- NOTE | 2020-11-16 09:02 | Pharmacy Report ---
Pharmacy Glycemic Short Note 2 - Date of Service November 16, 2020 - Glycemic Short BSG Results (Last 24 hours): 11/15/20 11/15/20 11/15/20 12:05 17:09 20:05 Glucose POC Glucose 109 H 151 H 87 11/16/20 11/16/20 06:55 08:13 Glucose 81 POC Glucose 96 OUTPATIENT ANTIDIABETIC REGIMEN: * Toujeo 15 units SC daily * HbA1c = 6% (11/15/20) ASSESSMENT: 11/16: * Christopher received a total of 24 units of insulin yesterday * 10 units basal + 14 units bolus * BSGs were well controlled: [phone] mg/dL * Fasting BSG continued to trend down to 96 mg/dL this AM * Will further reduce Lantus by 20% today to prevent hypoglycemia * No other changes necessary 11/15: * 75yo T2DM male with excellent outpatient control per recent A1c. May be too low if patient is experiencing hypoglycemia. 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 No basal insulin given last evening. Weight based NovoLog scale started since patient does not take prandial insulin as an outpatient. None required last evening * AM fasting BSG is slightly below goal range for inpatient targets at 91/110 mg/dl. * Protocol for pharmacy to convert ordered doses of Toujeo (pt outpatient med) to Lantus on a 1:1 unit conversion, except for the initial first dose of Lantus. The recommended initial Lantus dose should be 80% of the ordered Toujeo dose that is being converted on admission. All subsequent doses will be 1:1 dosing conversion. * Since BSG slightly below goal range and NovoLog is being added will further reduce basal by ~30% (instead of recommended 20%) and titrate based on BSG trends. 11/14 * 75 yo M admitted for weakness/anxiety. Pharmacy consulted for glycemic management * BSG of 108 mg/dL x1 only at this point * Will hold additional basal for now and re-assess in AM * Will initiate weight-based moderate stress Novolog PLAN FOR INPATIENT GLYCEMIC CONTROL: * Basal insulin - decreased * Lantus 8 units SC daily * Bolus insulin * NovoLog per scale ACHS or Q6hrs while NPO * Goal Range: Low 110 mg/dL - High 140 mg/dL * Correction Factor: 30 mg/dL/unit * Nutritional / Prandial insulin per carb ratio of 1 unit per 10 grams CHO consumed PLAN FOR DISCHARGE: * A1c is in goal range for patient. No changes needed unless patient is experiencing hypoglycemia.
[2020-11-16] MEDS: CYANOCOBALAMIN 500 MCG TABLET (VITAMIN B-12) PO SCH (09:03)
[2020-11-16] MEDS: INSULIN GLARGINE SOLOSTAR 100 UNITS/ML 3 ML PEN SC SCH ×2 (09:03→10:35)
[2020-11-16] MEDS: NYSTATIN CR 15 GM TUBE EXT SCH (09:04)
[2020-11-16] MEDS: POLYETHYLENE (MIRALAX) 17 GM PACK PO SCH (09:04)
--- NOTE | 2020-11-16 19:15 | Hospitalist Progress Note ---
Date of Service November 16, 2020 Assessment & Plan (1) Generalized weakness: Plan: Impression: Patient recently discharged from [facility] and was at [facility] for rehab. He was discharged on 11/13/2020 to live with his brother who was in his 70s. On the day of admission the patient had an episode of generalized weakness. He was put in a chair by his brother who then left for a family event. Within 30 minutes the patient had a panic attack and was concerned he would fall out of the chair and would not be able to get up and called 911 The patient had no actual fall and had no acute exacerbation of weakness or other issues. Patient had a lumbar CT scan 10/16/2020 which shows significant stenosis. Patient has no further neurological changes At this time the brother is unable to take care of the patient. Anticipate return to SNF PT/OT eval and treat Continue usual home medications Fall precautions are in place Continue with strengthening and conditioning Stable for SNF when bed available (2) Neurogenic claudication due to lumbar spinal stenosis: Plan: CT scan of the spine 10/16/2020 Patient seen by orthospine about a month agoDr. Sanchez It is his opinion that the anterior listhesis at L4-L5 is undoubtedly creating leg weakness and limitation with standing walking. Patient refused surgical intervention at that time In the event the patient would require further evaluation, Dr. Sanchez would be glad to follow him per his previous note Patient denies any significant change in pain. Continue to follow with PT OT evaluation and treatment (3) Bladder outlet obstruction: Plan: Follow urine output, cath if needed (4) Anemia of chronic disease: Plan: No acute blood loss noted. Follow periodic hemoglobin (5) CKD (chronic kidney disease): Plan: Probably approximately stage III. Follow periodically (6) Hypertrophic obstructive cardiomyopathy (HOCM): Plan: Echocardiogram completed 10/18/2020 and reveals a preserved left ventricular ejection fraction of 65 to 70%. There is mild tricuspid regurgitation. There is no regional wall motion abnormality. Left ventricular systolic function is normal. There is moderate to severe left ventricular hypertrophy Currently not on any diuretics (7) Sinus node dysfunction: Plan: Patient has a pacemaker in place No indication for interrogation at this time Hemodynamically stable Outpatient management (8) Hypertension: Plan: Continue usual home medications Blood pressures have overall been acceptable, continue to follow. Adjust medications if needed. (9) Diabetes: Plan: Hemoglobin A1c 6% Appreciate glycemic assistance. Continue to titrate insulins as needed. (10) BPH with obstruction/lower urinary tract symptoms: Plan: Previously seen by urology for obstruction -see above Continue tamsulosin and oxybutynin (11) Deep vein thrombosis (DVT) of left lower extremity: Plan: Chronically on Eliquis for anticoagulation Repeat lower extremity duplex 11/14/2020 with no indication of deep venous thrombus Continue anticoagulation Ambulate as tolerated (12) Lower extremity edema: Plan: Chronic Likely predominantly venous stasis. Compression, ambulation. (13) Ambulatory dysfunction: Plan: Secondary to spinal stenosis PT/OT eval and treat, SNF when available (14) Anxiety and depression: Plan: Chronic Continue home meds (15) Cardiomyopathy: Plan: Echocardiogram preserved left ventricular ejection fraction Continue beta-nati and ANG inhibitor (16) DVT prophylaxis: Plan: Continue Eliquis Ambulate as tolerated Out of bed to chair as tolerated Stable for SNF when approved/bed available. Admission and Anticipated Discharge Date Admission Date: November 14, 2020 Subjective no new complaints. waiting on snf/rehab. Review of Systems Review of Systems: All systems reviewed & are unremarkable except as noted in HPI & below Physical Exam Physical Exam: General awake and alert pleasant no distress. HEENT normocephalic atraumatic mucous membranes moist. Breathing unlabored no accessory muscle use good effort. Skin shows no rashes no pallor or icterus. Neuro without new focal deficits. Results & Data Results & Data ([facility]) Vital Signs (Past 12 Hours) Vital Signs Temp Pulse Resp BP Pulse Ox Pulse Ox 11/16/20 15:17 97.5 F L 52 L 16 95/56 L 100 11/16/20 08:00 96 PG Care Time/CCT Total # of Minutes Spent Total Time Spent with Patient: Total time spent is greater than 50% in coordination of care (as documented) at patient's floor/unit and/or counseling patient: Coding Level of Care Code 39353 Subseq Hosp Care Lvl 2 Diagnoses Generalized weakness R53.1 Neurogenic claudication due to lumbar spinal stenosis M48.062 Bladder outlet obstruction N32.0 Anemia of chronic disease D63.8 CKD (chronic kidney disease) N18.4 Chronic kidney disease stage: stage 4 (severe) Hypertrophic obstructive cardiomyopathy (HOCM) I42.1 Sinus node dysfunction I49.5 Hypertension I10 Diabetes E11.9 BPH with obstruction/lower urinary tract symptoms N40.1; N13.8 Deep vein thrombosis (DVT) of left lower extremity I82.402 Lower extremity edema R60.0 Ambulatory dysfunction R26.2 Anxiety and depression F41.9; F32.9 Cardiomyopathy I42.9 DVT prophylaxis Z29.9 (1) CKD (chronic kidney disease) Chronic kidney disease stage: stage 4 (severe) Qualified Code(s): N18.4 - Chronic kidney disease, stage 4 (severe)
[2020-11-16] MEDS: lisinopril 20 MG TAB PO SCH (20:37)
[2020-11-16] MEDS: ATORVASTATIN 40 MG TAB PO SCH (20:38)
[2020-11-16] MEDS: METOPROLOL SUCC 50MG EXT REL TAB PO SCH (20:42)
[2020-11-17] MEDS: INSULIN ASPART 100 UNITS/ML 3 ML PEN SC SCH ×4 (08:42→20:48)
[2020-11-17] MEDS: INSULIN GLARGINE SOLOSTAR 100 UNITS/ML 3 ML PEN SC SCH (08:43)
[2020-11-17] MEDS: FELODIPINE 5 MG TABCR PO SCH (08:44)
[2020-11-17] MEDS: TAMSULOSIN HCL 0.4 MG CAP PO SCH ×2 (08:44→20:50)
[2020-11-17] MEDS: FINASTERIDE 5 MG TAB PO SCH (08:44)
[2020-11-17] MEDS: CALCIUM 600MG + VIT D 400 IU TAB PO SCH (08:45)
[2020-11-17] MEDS: MAGNESIUM OXIDE 400 MG TAB PO SCH ×2 (08:45→20:50)
[2020-11-17] MEDS: ISOSORBIDE MONO EXTENDED REL 60 MG TABCR PO SCH (08:45)
[2020-11-17] MEDS: CHOLECALCIFEROL 1,000 UNITS 25 MCG TAB PO SCH (08:45)
[2020-11-17] MEDS: SERTRALINE HCL 50 MG TABLET PO SCH (08:46)
[2020-11-17] MEDS: APIXABAN 5 MG TABLET PO SCH ×2 (08:46→20:48)
[2020-11-17] MEDS: ASPIRIN 81 MG ECTAB PO SCH (08:47)
[2020-11-17] MEDS: allopurinoL 300 MG TAB PO SCH (08:47)
[2020-11-17] MEDS: DOCUSATE SODIUM 100 MG CAP PO SCH ×2 (08:47→17:58)
[2020-11-17] MEDS: NYSTATIN CR 15 GM TUBE EXT SCH (08:48)
[2020-11-17] MEDS: POLYETHYLENE (MIRALAX) 17 GM PACK PO SCH (08:56)
[2020-11-17] MEDS: OXYBUTYNIN CHLORIDE XL 5 MG TABCR PO SCH (10:43)
[2020-11-17] MEDS: CYANOCOBALAMIN 500 MCG TABLET (VITAMIN B-12) PO SCH (10:43)
--- NOTE | 2020-11-17 18:48 | Hospitalist Progress Note ---
Date of Service November 17, 2020 Assessment & Plan (1) Generalized weakness: Plan: Impression: Patient recently discharged from [facility] and was at [facility] for rehab. He was discharged on 11/13/2020 to live with his brother who was in his 70s. On the day of admission the patient had an episode of generalized weakness. He was put in a chair by his brother who then left for a family event. Within 30 minutes the patient had a panic attack and was concerned he would fall out of the chair and would not be able to get up and called 911 The patient had no actual fall and had no acute exacerbation of weakness or other issues. Patient had a lumbar CT scan 10/16/2020 which shows significant stenosis. Patient has no further neurological changes At this time the brother is unable to take care of the patient. Anticipate return to SNF PT/OT eval and treat Continue usual home medications Fall precautions are in place Continue with strengthening and conditioning Stable for SNF when bed available - still waiting on bureaucracy. (2) Neurogenic claudication due to lumbar spinal stenosis: Plan: CT scan of the spine 10/16/2020 Patient seen by orthospine about a month agoDr. Sanchez It is his opinion that the anterior listhesis at L4-L5 is undoubtedly creating leg weakness and limitation with standing walking. Patient refused surgical intervention at that time In the event the patient would require further evaluation, Dr. Sanchez would be glad to follow him per his previous note Patient denies any significant change in pain. Continue to follow with PT OT evaluation and treatment (3) Bladder outlet obstruction: Plan: Follow urine output, cath if needed (4) Anemia of chronic disease: Plan: No acute blood loss noted. Follow periodic hemoglobin (5) CKD (chronic kidney disease): Plan: Probably approximately stage III. Follow periodically (6) Hypertrophic obstructive cardiomyopathy (HOCM): Plan: Echocardiogram completed 10/18/2020 and reveals a preserved left ventricular ejection fraction of 65 to 70%. There is mild tricuspid regurgitation. There is no regional wall motion abnormality. Left ventricular systolic function is normal. There is moderate to severe left ventricular hypertrophy Currently not on any diuretics (7) Sinus node dysfunction: Plan: Patient has a pacemaker in place No indication for interrogation at this time Hemodynamically stable Outpatient management (8) Hypertension: Plan: Continue usual home medications Blood pressures have overall been acceptable, continue to follow. Adjust medications if needed. (9) Diabetes: Plan: Hemoglobin A1c 6% Appreciate glycemic assistance. Continue to titrate insulins as needed. (10) BPH with obstruction/lower urinary tract symptoms: Plan: Previously seen by urology for obstruction -see above Continue tamsulosin and oxybutynin (11) Deep vein thrombosis (DVT) of left lower extremity: Plan: Chronically on Eliquis for anticoagulation Repeat lower extremity duplex 11/14/2020 with no indication of deep venous thrombus Continue anticoagulation Ambulate as tolerated (12) Lower extremity edema: Plan: Chronic Likely predominantly venous stasis. Compression, ambulation. (13) Ambulatory dysfunction: Plan: Secondary to spinal stenosis PT/OT eval and treat, SNF when available - hopefully soon (14) Anxiety and depression: Plan: Chronic Continue home meds (15) Cardiomyopathy: Plan: Echocardiogram preserved left ventricular ejection fraction Continue beta-nati and ANG inhibitor (16) DVT prophylaxis: Plan: Continue Eliquis Ambulate as tolerated Out of bed to chair as tolerated Stable for SNF when approved/bed available. Admission and Anticipated Discharge Date Admission Date: November 14, 2020 Subjective feeling ok still waiting on placement Review of Systems Review of Systems: All systems reviewed & are unremarkable except as noted in HPI & below Physical Exam Physical Exam: gen aaox3 pleasant nad heent nc at mmm breathing unlabored no accessory muscles good effort skin no rashes no pallor or icterus neuro no focal deficits Results & Data Results & Data ([facility]) Vital Signs (Past 12 Hours) Vital Signs Temp Pulse Resp BP Pulse Ox 11/17/20 16:31 98.6 F 50 L 18 137/68 99 11/17/20 08:41 50 L 16 120/67 99 11/17/20 07:36 98.1 F 63 18 185/77 H 97 PG Care Time/CCT Total # of Minutes Spent Total Time Spent with Patient: Total time spent is greater than 50% in coordination of care (as documented) at patient's floor/unit and/or counseling patient: Coding Level of Care Code 88740 Subseq Hosp Care Lvl 1 Diagnoses Generalized weakness R53.1 Neurogenic claudication due to lumbar spinal stenosis M48.062 Bladder outlet obstruction N32.0 Anemia of chronic disease D63.8 CKD (chronic kidney disease) N18.4 Chronic kidney disease stage: stage 4 (severe) Hypertrophic obstructive cardiomyopathy (HOCM) I42.1 Sinus node dysfunction I49.5 Hypertension I10 Diabetes E11.9 BPH with obstruction/lower urinary tract symptoms N40.1; N13.8 Deep vein thrombosis (DVT) of left lower extremity I82.402 Lower extremity edema R60.0 Ambulatory dysfunction R26.2 Anxiety and depression F41.9; F32.9 Cardiomyopathy I42.9 DVT prophylaxis Z29.9 (1) CKD (chronic kidney disease) Chronic kidney disease stage: stage 4 (severe) Qualified Code(s): N18.4 - Chronic kidney disease, stage 4 (severe)
[2020-11-17] MEDS: ATORVASTATIN 40 MG TAB PO SCH (20:47)
[2020-11-17] MEDS: METOPROLOL SUCC 50MG EXT REL TAB PO SCH (20:49)
[2020-11-17] MEDS: lisinopril 20 MG TAB PO SCH (20:50)
[2020-11-18] MEDS: INSULIN ASPART 100 UNITS/ML 3 ML PEN SC SCH ×4 (09:11→20:48)
[2020-11-18] MEDS: INSULIN GLARGINE SOLOSTAR 100 UNITS/ML 3 ML PEN SC SCH (09:12)
[2020-11-18] MEDS: APIXABAN 5 MG TABLET PO SCH ×2 (09:16→20:46)
[2020-11-18] MEDS: MAGNESIUM OXIDE 400 MG TAB PO SCH ×2 (09:17→20:44)
[2020-11-18] MEDS: ASPIRIN 81 MG ECTAB PO SCH (09:17)
[2020-11-18] MEDS: CYANOCOBALAMIN 500 MCG TABLET (VITAMIN B-12) PO SCH (09:18)
[2020-11-18] MEDS: TAMSULOSIN HCL 0.4 MG CAP PO SCH ×2 (09:18→20:44)
[2020-11-18] MEDS: OXYBUTYNIN CHLORIDE XL 5 MG TABCR PO SCH (09:18)
[2020-11-18] MEDS: DOCUSATE SODIUM 100 MG CAP PO SCH ×2 (09:19→17:46)
[2020-11-18] MEDS: FELODIPINE 5 MG TABCR PO SCH (09:19)
[2020-11-18] MEDS: SERTRALINE HCL 50 MG TABLET PO SCH (09:20)
[2020-11-18] MEDS: CALCIUM 600MG + VIT D 400 IU TAB PO SCH (09:20)
[2020-11-18] MEDS: CHOLECALCIFEROL 1,000 UNITS 25 MCG TAB PO SCH (09:20)
[2020-11-18] MEDS: FINASTERIDE 5 MG TAB PO SCH (09:21)
[2020-11-18] MEDS: ISOSORBIDE MONO EXTENDED REL 60 MG TABCR PO SCH (09:21)
[2020-11-18] MEDS: allopurinoL 300 MG TAB PO SCH (09:21)
[2020-11-18] MEDS: NYSTATIN CR 15 GM TUBE EXT SCH (09:22)
[2020-11-18] MEDS: POLYETHYLENE (MIRALAX) 17 GM PACK PO SCH (09:27)
--- NOTE | 2020-11-18 18:02 | Hospitalist Progress Note ---
Date of Service November 18, 2020 Assessment & Plan (1) Generalized weakness: Plan: Impression: Patient recently discharged from [facility] and was at [facility] for rehab. He was discharged on 11/13/2020 to live with his brother who was in his 70s. On the day of admission the patient had an episode of generalized weakness. He was put in a chair by his brother who then left for a family event. Within 30 minutes the patient had a panic attack and was concerned he would fall out of the chair and would not be able to get up and called 911 The patient had no actual fall and had no acute exacerbation of weakness or other issues. Patient had a lumbar CT scan 10/16/2020 which shows significant stenosis. Patient has no further neurological changes At this time the brother is unable to take care of the patient. Anticipate return to SNF if approved, although he is doing well enough with therapy this may not be approved, in which case he/brother will likely need to figure out safe living arrangements. PT/OT eval and treat ongoing Continue usual home medications Fall precautions are in place Continue with strengthening and conditioning Stable for SNF if approved and bed available (2) Neurogenic claudication due to lumbar spinal stenosis: Plan: CT scan of the spine 10/16/2020 Patient seen by [facility] about a month agoDr. Sanchez It is his opinion that the anterior listhesis at L4-L5 is undoubtedly creating leg weakness and limitation with standing walking. Patient refused surgical intervention at that time In the event the patient would require further evaluation, Dr. Sanchez would be glad to follow him per his previous note Patient denies any significant change in pain. Continue to follow with PT OT evaluation and treatment (3) Bladder outlet obstruction: Plan: Follow urine output, cath if needed (4) Anemia of chronic disease: Plan: No acute blood loss noted. Follow periodic hemoglobin (5) CKD (chronic kidney disease): Plan: Probably approximately stage III. Follow periodically (6) Hypertrophic obstructive cardiomyopathy (HOCM): Plan: Echocardiogram completed 10/18/2020 and reveals a preserved left ventricular ejection fraction of 65 to 70%. There is mild tricuspid regurgitation. There is no regional wall motion abnormality. Left ventricular systolic function is normal. There is moderate to severe left ventricular hypertrophy Currently not on any diuretics (7) Sinus node dysfunction: Plan: Patient has a pacemaker in place No indication for interrogation at this time Hemodynamically stable Outpatient management (8) Hypertension: Plan: Continue usual home medications Blood pressures have overall been acceptable, continue to follow. Adjust medications if needed. (9) Diabetes: Plan: Hemoglobin A1c 6% Appreciate glycemic assistance. Continue to titrate insulins as needed. (10) BPH with obstruction/lower urinary tract symptoms: Plan: Previously seen by urology for obstruction -see above Continue tamsulosin and oxybutynin (11) Deep vein thrombosis (DVT) of left lower extremity: Plan: Chronically on Eliquis for anticoagulation Repeat lower extremity duplex 11/14/2020 with no indication of deep venous thrombus Continue anticoagulation Ambulate as tolerated (12) Lower extremity edema: Plan: Chronic Likely predominantly venous stasis. Compression, ambulation. (13) Ambulatory dysfunction: Plan: Secondary to spinal stenosis PT/OT eval and treat, SNF when available - hopefully soon (14) Anxiety and depression: Plan: Chronic Continue home meds (15) Cardiomyopathy: Plan: Echocardiogram preserved left ventricular ejection fraction Continue beta-nati and ANG inhibitor (16) DVT prophylaxis: Plan: Continue Eliquis Ambulate as tolerated Out of bed to chair as tolerated Stable for SNF when/if approved/bed available. Admission and Anticipated Discharge Date Admission Date: November 17, 2020 Subjective No new complaints. Still waiting on word from insurance company on placement. Does appear that he is done well enough with therapy, that it may be denied. See case management notes, input appreciated. Review of Systems Review of Systems: All systems reviewed & are unremarkable except as noted in HPI & below Physical Exam Physical Exam: In general he is awake and alert pleasant no distress. HEENT normocephalic atraumatic mucous membranes moist. Breathing unlabored no accessory muscle use good effort. Skin shows no rashes no pallor or icterus. Neuro without focal deficits. Results & Data Results & Data ([facility]) Vital Signs (Past 12 Hours) Vital Signs Temp Pulse Resp BP Pulse Ox 11/18/20 07:06 98.8 F 50 L 16 162/77 H 97 PG Care Time/CCT Total # of Minutes Spent Total Time Spent with Patient: Total time spent is greater than 50% in coordination of care (as documented) at patient's floor/unit and/or counseling patient: Coding Level of Care Code 24399 Subseq Hosp Care Lvl 1 Diagnoses Generalized weakness R53.1 Neurogenic claudication due to lumbar spinal stenosis M48.062 Bladder outlet obstruction N32.0 Anemia of chronic disease D63.8 CKD (chronic kidney disease) N18.4 Chronic kidney disease stage: stage 4 (severe) Hypertrophic obstructive cardiomyopathy (HOCM) I42.1 Sinus node dysfunction I49.5 Hypertension I10 Diabetes E11.9 BPH with obstruction/lower urinary tract symptoms N40.1; N13.8 Deep vein thrombosis (DVT) of left lower extremity I82.402 Lower extremity edema R60.0 Ambulatory dysfunction R26.2 Anxiety and depression F41.9; F32.9 Cardiomyopathy I42.9 DVT prophylaxis Z29.9 (1) CKD (chronic kidney disease) Chronic kidney disease stage: stage 4 (severe) Qualified Code(s): N18.4 - Chronic kidney disease, stage 4 (severe)
[2020-11-18] MEDS: METOPROLOL SUCC 50MG EXT REL TAB PO SCH (20:45)
[2020-11-18] MEDS: ATORVASTATIN 40 MG TAB PO SCH (20:46)
[2020-11-18] MEDS: lisinopril 20 MG TAB PO SCH (20:46)
[2020-11-19] MEDS: APIXABAN 5 MG TABLET PO SCH ×2 (08:31→20:18)
[2020-11-19] MEDS: FINASTERIDE 5 MG TAB PO SCH (08:32)
[2020-11-19] MEDS: CYANOCOBALAMIN 500 MCG TABLET (VITAMIN B-12) PO SCH (08:32)
[2020-11-19] MEDS: CALCIUM 600MG + VIT D 400 IU TAB PO SCH (08:32)
[2020-11-19] MEDS: CHOLECALCIFEROL 1,000 UNITS 25 MCG TAB PO SCH (08:32)
[2020-11-19] MEDS: ASPIRIN 81 MG ECTAB PO SCH (08:32)
[2020-11-19] MEDS: SERTRALINE HCL 50 MG TABLET PO SCH (08:33)
[2020-11-19] MEDS: ISOSORBIDE MONO EXTENDED REL 60 MG TABCR PO SCH (08:34)
[2020-11-19] MEDS: MAGNESIUM OXIDE 400 MG TAB PO SCH ×2 (08:34→20:17)
[2020-11-19] MEDS: allopurinoL 300 MG TAB PO SCH (08:34)
[2020-11-19] MEDS: TAMSULOSIN HCL 0.4 MG CAP PO SCH ×2 (08:34→20:18)
[2020-11-19] MEDS: DOCUSATE SODIUM 100 MG CAP PO SCH ×2 (08:35→15:59)
[2020-11-19] MEDS: FELODIPINE 5 MG TABCR PO SCH (08:35)
[2020-11-19] MEDS: OXYBUTYNIN CHLORIDE XL 5 MG TABCR PO SCH (08:35)
[2020-11-19] MEDS: POLYETHYLENE (MIRALAX) 17 GM PACK PO SCH (08:42)
[2020-11-19] MEDS: INSULIN GLARGINE SOLOSTAR 100 UNITS/ML 3 ML PEN SC SCH (08:42)
[2020-11-19] MEDS: INSULIN ASPART 100 UNITS/ML 3 ML PEN SC SCH ×4 (08:43→21:12)
[2020-11-19] MEDS: NYSTATIN CR 15 GM TUBE EXT SCH (08:45)
--- NOTE | 2020-11-19 11:29 | Pharmacy Report ---
Pharmacy Glycemic Short Note 2 - Date of Service November 19, 2020 - Glycemic Short BSG Results (Last 24 hours): 11/18/20 11/18/20 11/18/20 12:11 17:29 20:36 POC Glucose 178 H 92 170 H 11/19/20 08:15 POC Glucose 128 H OUTPATIENT ANTIDIABETIC REGIMEN: * Toujeo 15 units SC daily * HbA1c = 6% (11/15/20) ASSESSMENT: 11/21: * Christopher received a total of 27 units of insulin yesterday * 8 units basal + 19 units bolus * BSGs were well controlled: 92-178 mg/dL * Fasting BSG 128mg/dl - no change in basal * Blood sugars acceptable, no changes in CF/CR at this time 11/16: * Christopher received a total of 24 units of insulin yesterday * 10 units basal + 14 units bolus * BSGs were well controlled: 960-589-007-87 mg/dL * Fasting BSG continued to trend down to 96 mg/dL this AM * Will further reduce Lantus by 20% today to prevent hypoglycemia * No other changes necessary 11/15: * 75yo T2DM male with excellent outpatient control per recent A1c. May be too low if patient is experiencing hypoglycemia. * Pt did take his Toujeo (insulin glargine U-300) 15 units SQ AM PRN OCCUPATIONAL THERAPIST. No basal insulin given last evening. Weight based NovoLog scale started since patient does not take prandial insulin as an outpatient. None required last evening * AM fasting BSG is slightly below goal range for inpatient targets at 91/110 mg/dl. * Protocol for pharmacy to convert ordered doses of Toujeo (pt outpatient med) to Lantus on a 1:1 unit conversion, except for the initial first dose of Lantus. The recommended initial Lantus dose should be 80% of the ordered Toujeo dose that is being converted on admission. All subsequent doses will be 1:1 dosing conversion. * Since BSG slightly below goal range and NovoLog is being added will further reduce basal by ~30% (instead of recommended 20%) and titrate based on BSG trends. 11/14 * 75 yo M admitted for weakness/anxiety. Pharmacy consulted for glycemic management * BSG of 108 mg/dL x1 only at this point * Will hold additional basal for now and re-assess in AM * Will initiate weight-based moderate stress Novolog PLAN FOR INPATIENT GLYCEMIC CONTROL: * Basal insulin * Lantus 8 units SC daily * Bolus insulin * NovoLog per scale ACHS or Q6hrs while NPO * Goal Range: Low 110 mg/dL - High 140 mg/dL * Correction Factor: 30 mg/dL/unit * Nutritional / Prandial insulin per carb ratio of 1 unit per 8 grams CHO consumed PLAN FOR DISCHARGE: * A1c is in goal range for patient. No changes needed unless patient is experiencing hypoglycemia.
--- NOTE | 2020-11-19 13:11 | Hospitalist Progress Note ---
Date of Service November 19, 2020 Assessment & Plan (1) Generalized weakness: Plan: Impression: Patient recently discharged from [facility] and was at [facility] for rehab. He was discharged on 11/13/2020 to live with his brother who was in his 70s. On the day of admission the patient had an episode of generalized weakness. He was put in a chair by his brother who then left for a family event. Within 30 minutes the patient had a panic attack and was concerned he would fall out of the chair and would not be able to get up and called 911 The patient had no actual fall and had no acute exacerbation of weakness or other issues. Patient had a lumbar CT scan 10/16/2020 which shows significant stenosis. Patient has no further neurological changes At this time the brother is unable to take care of the patient. Anticipate return to SNF if approved, although he is doing well enough with therapy this may not be approved, in which case he/brother will likely need to figure out safe living arrangements. discussed this today PT/OT eval and treat ongoing Continue usual home medications Fall precautions are in place but doing better w therapy Continue with strengthening and conditioning Stable for SNF if approved and bed available (2) Neurogenic claudication due to lumbar spinal stenosis: Plan: CT scan of the spine 10/16/2020 Patient seen by orthospine about a month agoDr. Sanchez It is his opinion that the anterior listhesis at L4-L5 is undoubtedly creating leg weakness and limitation with standing walking. Patient refused surgical intervention at that time In the event the patient would require further evaluation, Dr. Sanchez would be glad to follow him per his previous note Patient denies any significant change in pain. Continue to follow with PT OT evaluation and treatment (3) Bladder outlet obstruction: Plan: Follow urine output, cath if needed (4) Anemia of chronic disease: Plan: No acute blood loss noted. Follow periodic hemoglobin (5) CKD (chronic kidney disease): Plan: Probably approximately stage III. Follow periodically (6) Hypertrophic obstructive cardiomyopathy (HOCM): Plan: Echocardiogram completed 10/18/2020 and reveals a preserved left ventricular ejection fraction of 65 to 70%. There is mild tricuspid regurgitation. There is no regional wall motion abnormality. Left ventricular systolic function is normal. There is moderate to severe left ventricular hypertrophy Currently not on any diuretics (7) Sinus node dysfunction: Plan: Patient has a pacemaker in place No indication for interrogation at this time Hemodynamically stable Outpatient management (8) Hypertension: Plan: Continue usual home medications Blood pressures have overall been acceptable, continue to follow. Adjust medications if needed. (9) Diabetes: Plan: Hemoglobin A1c 6% Appreciate glycemic assistance. Continue to titrate insulins as needed. (10) BPH with obstruction/lower urinary tract symptoms: Plan: Previously seen by urology for obstruction -see above Continue tamsulosin and oxybutynin (11) Deep vein thrombosis (DVT) of left lower extremity: Plan: Chronically on Eliquis for anticoagulation Repeat lower extremity duplex 11/14/2020 with no indication of deep venous thrombus Continue anticoagulation Ambulate as tolerated (12) Lower extremity edema: Plan: Chronic Likely predominantly venous stasis. Compression, ambulation. (13) Ambulatory dysfunction: Plan: Secondary to spinal stenosis PT/OT eval and treat, SNF if/when available - hopefully soon (14) Anxiety and depression: Plan: Chronic Continue home meds (15) Cardiomyopathy: Plan: Echocardiogram preserved left ventricular ejection fraction Continue beta-nati and ANG inhibitor (16) DVT prophylaxis: Plan: Continue Eliquis Ambulate as tolerated Out of bed to chair as tolerated Stable for SNF when/if approved/bed available. Admission and Anticipated Discharge Date Admission Date: November 17, 2020 Subjective no new complaints. a little unsettled about the prospect of going home if snf denied. still hoping will get approved. PT input noted. Review of Systems Review of Systems: All systems reviewed & are unremarkable except as noted in HPI & below Physical Exam Physical Exam: gen aao pleasant nad heent nc at mmm breathing unlabored no accessory muscles good effort skin no rashes no pallor or icterus neuro no focal deficits Results & Data Results & [facility] ([facility]) Vital Signs (Past 12 Hours) Vital Signs Temp Pulse Resp BP Pulse Ox 11/19/20 07:11 97.9 F 53 L 16 176/83 H 99 PG Care Time/CCT Total # of Minutes Spent Total Time Spent with Patient: Total time spent is greater than 50% in coordination of care (as documented) at patient's floor/unit and/or counseling patient: Coding Level of Care Code 51429 Subseq Hosp Care Lvl 1 Diagnoses Generalized weakness R53.1 Neurogenic claudication due to lumbar spinal stenosis M48.062 Bladder outlet obstruction N32.0 Anemia of chronic disease D63.8 CKD (chronic kidney disease) N18.4 Chronic kidney disease stage: stage 4 (severe) Hypertrophic obstructive cardiomyopathy (HOCM) I42.1 Sinus node dysfunction I49.5 Hypertension I10 Diabetes E11.9 BPH with obstruction/lower urinary tract symptoms N40.1; N13.8 Deep vein thrombosis (DVT) of left lower extremity I82.402 Lower extremity edema R60.0 Ambulatory dysfunction R26.2 Anxiety and depression F41.9; F32.9 Cardiomyopathy I42.9 DVT prophylaxis Z29.9 (1) CKD (chronic kidney disease) Chronic kidney disease stage: stage 4 (severe) Qualified Code(s): N18.4 - Chronic kidney disease, stage 4 (severe)
[2020-11-19] MEDS: lisinopril 20 MG TAB PO SCH (20:18)
[2020-11-19] MEDS: ATORVASTATIN 40 MG TAB PO SCH (20:19)
[2020-11-19] MEDS: METOPROLOL SUCC 50MG EXT REL TAB PO SCH (20:21)
[2020-11-20] MEDS: FELODIPINE 5 MG TABCR PO SCH (08:17)
[2020-11-20] MEDS: POLYETHYLENE (MIRALAX) 17 GM PACK PO SCH (08:17)
[2020-11-20] MEDS: TAMSULOSIN HCL 0.4 MG CAP PO SCH (08:17)
[2020-11-20] MEDS: NYSTATIN CR 15 GM TUBE EXT SCH (08:17)
[2020-11-20] MEDS: CALCIUM 600MG + VIT D 400 IU TAB PO SCH (08:17)
[2020-11-20] MEDS: OXYBUTYNIN CHLORIDE XL 5 MG TABCR PO SCH (08:18)
[2020-11-20] MEDS: SERTRALINE HCL 50 MG TABLET PO SCH (08:18)
[2020-11-20] MEDS: ASPIRIN 81 MG ECTAB PO SCH (08:18)
[2020-11-20] MEDS: allopurinoL 300 MG TAB PO SCH (08:18)
[2020-11-20] MEDS: CYANOCOBALAMIN 500 MCG TABLET (VITAMIN B-12) PO SCH (08:18)
[2020-11-20] MEDS: MAGNESIUM OXIDE 400 MG TAB PO SCH (08:18)
[2020-11-20] MEDS: APIXABAN 5 MG TABLET PO SCH (08:18)
[2020-11-20] MEDS: CHOLECALCIFEROL 1,000 UNITS 25 MCG TAB PO SCH (08:18)
[2020-11-20] MEDS: FINASTERIDE 5 MG TAB PO SCH (08:18)
[2020-11-20] MEDS: DOCUSATE SODIUM 100 MG CAP PO SCH (08:18)
[2020-11-20] MEDS: ISOSORBIDE MONO EXTENDED REL 60 MG TABCR PO SCH (08:18)
[2020-11-20] MEDS: INSULIN ASPART 100 UNITS/ML 3 ML PEN SC SCH (08:20)
[2020-11-20] MEDS: INSULIN GLARGINE SOLOSTAR 100 UNITS/ML 3 ML PEN SC SCH (08:20)
--- NOTE | 2020-11-20 17:21 | Discharge Summary ---
Date of Service November 20, 2020 Admission HPI Per Admitting Provider Dr. Gabriel Chiang This is a 75-year-old male with a complicated past medical history significant for CKD, left lower extremity DVT, ambulatory dysfunction, anxiety and depression, urinary incontinence, BPH with LUTS, diabetes mellitus, memory impairment, anemia of chronic disease, hypertrophic obstructive cardiomyopathy, proliferative diabetic retinopathy, squamous cell carcinoma, hypertriglyceridemia, vitamin D deficiency, secondary hyperparathyroidism, pacemaker, cardiomyopathy and spinal stenosis and recent admission for [id number]. Patient was discharged from [facility] and went to [facility]. He was discharged from [facility] yesterday to go live with his brother who is in the 70s. His brother lives alone. His brother left the house today for less than 2 hours to go to a and within 30 minutes of leaving the house the patient reports that he had a panic attack and called 911. He was brought to [facility] emergency department and found to be at least a 2 person assist for ambulation. The brother lives alone and is unable to care for the patient. In the emergency department a bilateral lower extremity duplex was completed is negative for DVT. The patient has a history of DVT and is currently anticoagulated on Eliquis. The patient admits to some weight gain since discharge from the hospital which he feels is fluid. Patient denies any fever, chills, sweats, rigors. He has no shortness of breath. He feels as though he had a panic attack when he called 911. He is very anxious about placement. The patient states that he is fully vaccinated for Covid. He has no Covid symptoms. Principal Diagnosis Weaknessdeconditioning and spinal stenosis/neurogenic claudication Discharge Exam In general he is awake and alert pleasant no distress. HEENT normocephalic atraumatic mucous membranes moist. Breathing unlabored no accessory muscle use good effort. Skin shows no rashes no pallor or icterus. Discharge Data Allergies Allergy/AdvReac Type Severity Reaction Status Date / Time No Known Allergies Allergy ` Verified 11/14/20 14:34 Consultations 11/14/20 16:23 ED Decision to Admit Stat Ordered Studies 11/14/20 13:44 US venous doppler LE Stat Hospital Course (1) Generalized weakness: Impression: Patient recently discharged from [facility] and was at [facility] for rehab. He was discharged on 11/13/2020 to live with his brother who was in his 70s. On the day of admission the patient had an episode of generalized weakness. He was put in a chair by his brother who then left for a family event. Within 30 minutes the patient had a panic attack and was concerned he would fall out of the chair and would not be able to get up and called 911 The patient had no actual fall and had no acute exacerbation of weakness or other issues. Patient had a lumbar CT scan 10/16/2020 which shows significant stenosis. Patient has no further neurological changes At this time the brother is unable to take care of the patient. For return to SNF PT/OT eval and treat ongoing at SNF Continue usual home medications Fall precautions are in place but doing better w therapy Continue with strengthening and conditioning Stable for SNF today (2) Neurogenic claudication due to lumbar spinal stenosis: CT scan of the spine 10/16/2020 Patient seen by [facility]ospine about a month agoDr. Sanchez It is his opinion that the anterior listhesis at L4-L5 is undoubtedly creating leg weakness and limitation with standing walking. Patient refused surgical intervention at that time In the event the patient would require further evaluation, Dr. Sanchez would be glad to follow him per his previous note Patient denies any significant change in pain. Continue to follow with PT OT evaluation and treatment (3) Bladder outlet obstruction: Follow urine output, cath if needed (4) Anemia of chronic disease: No acute blood loss noted. Follow periodic hemoglobin (5) CKD (chronic kidney disease): Probably approximately stage III. Follow periodically (6) Hypertrophic obstructive cardiomyopathy (HOCM): Echocardiogram completed 10/18/2020 and reveals a preserved left ventricular ejection fraction of 65 to 70%. There is mild tricuspid regurgitation. There is no regional wall motion abnormality. Left ventricular systolic function is normal. There is moderate to severe left ventricular hypertrophy Currently not on any diuretics (7) Sinus node dysfunction: Patient has a pacemaker in place No indication for interrogation at this time Hemodynamically stable Outpatient management (8) Hypertension: Continue usual home medications Blood pressures have overall been acceptable for an inpatient situation, continue to follow. Adjust medications if needed. (9) Diabetes: Hemoglobin A1c 6% (10) BPH with obstruction/lower urinary tract symptoms: Previously seen by urology for obstruction -see above Continue tamsulosin and oxybutynin (11) Deep vein thrombosis (DVT) of left lower extremity: Chronically on Eliquis for anticoagulation Repeat lower extremity duplex 11/14/2020 with no indication of deep venous thrombus Continue anticoagulation Ambulate as tolerated (12) Lower extremity edema: Chronic Likely predominantly venous stasis. Compression, ambulation. (13) Ambulatory dysfunction: Secondary to spinal stenosis PT/OT eval and treat, SNF today (14) Anxiety and depression: Chronic Continue home meds (15) Cardiomyopathy: Echocardiogram preserved left ventricular ejection fraction Continue beta-nati and ANG inhibitor (16) DVT prophylaxis: Continue Eliquis Ambulate as tolerated Out of bed to chair as tolerated Total Time Total Time Spent Total Time Spent (In Minutes): Less than 30 Discharge Plan Discharge Items Patient Disposition: [facility] Reason For Visit: GENERALIZED WEAKNESS, ANXIETY Discharge Diagnosis: weakness: deconditioning and spinal stenosis Condition on Discharge: Fair Activity: Per Instructions section Activity Comment: per ongoing PT/OT guidance Non-emergency contact: Primary Care Provider Call non-emergency contact if: you have any medication questions and your symptoms worsen Follow-up/Referrals: Tino Pete DO [Primary Care Provider] - Diet: Carb Consistent or DM2 and Low Sodium (2gm) Addtl Attending Provider Instructions: ongoing PT/OT for deconditioning and spinal stenosis mediated weakness. follow fluid balance//low sodium due to CKD and HOCM although fortunately that has been a very stable issue without evidence of decompensation chronically anticoagulated for prior VTE did have some urinary retention earlier in hospital stay - fortunately not a major issue, but please follow CBC, BMP next week then periodically//as clinically warranted for DM - here has been on latuns 8 units daily and novolog 1 unit per 8g carbs consumed, with all sugars basically between 80-200. carb ratio does not translate to [place] discharge med orders, so ordered as "3 units AC" but if possible would not keep this as a static dose, if carb based dosing is possible. thanks Pending Studies at Discharge: No Stand-Alone Forms: My [facility] Skilled Items Patient informed of condition?: Yes DNR: Yes Discharge Level of Care: Skilled Communicable Disease: No Discharge Prognosis: Stable Lines: None Urinary Catheter: No Medications and DC Order Prescriptions: New magnesium oxide 400 mg (241.3 mg magnesium) Tablet 400 mg PO DAILY Qty: 30 RF: 0 insulin aspart U-100 [Novolog Flexpen U-100 Insulin] 100 unit/mL (3 mL) Insulin Pen 3 unit SC AC Qty: 3 RF: 0 Lantus Solostar U-100 Insulin 100 unit/mL (3 mL) Insulin Pen 8 unit SC DAILY Qty: 3 RF: 0 Continued felodipine 10 mg tablet extended release 24 hr 10 mg PO DAILY Qty: 90 RF: 3 (DME) OneTouch Ultra Blue Test Strip Strip See Dose Instructions .ROUTE .MEDSUPPLY Qty: 100 RF: 6 Eliquis 5 mg tablet 5 mg PO BID Qty: 60 RF: 5 cholecalciferol (vitamin D3) 25 mcg (1,000 unit) capsule 1,000 units PO DAILY Qty: 90 RF: 3 aspirin 81 mg tablet,chewable 81 mg PO DAILY RF: 0 calcium carb-vitamin D3-vit K2 600 mg-1,000 unit-90 mcg tablet 1 tab PO DAILY RF: 0 allopurinol 300 mg tablet 300 mg PO DAILY RF: 0 atorvastatin 40 mg Tablet 40 mg PO HS Qty: 30 RF: 0 lisinopril 20 mg Tablet 20 mg PO QPM Qty: 30 RF: 0 metoprolol succinate 200 mg tablet extended release 24 hr 200 mg PO PM Qty: 30 RF: 0 acetaminophen 325 mg Tablet 650 mg PO Q4H PRN (Reason: [place]/fever/pain) Qty: 30 RF: 0 polyethylene glycol 3350 [Miralax] 17 gram Powder In Packet 17 g PO DAILY Qty: 30 RF: 0 cyanocobalamin (vitamin B-12) 500 mcg Tablet 1,000 mcg PO QAM Qty: 60 RF: 0 tamsulosin 0.4 mg Capsule 0.4 mg PO BID Qty: 60 RF: 0 finasteride [Proscar] 5 mg Tablet 5 mg PO QAM Qty: 30 RF: 0 oxybutynin chloride 10 mg Tablet Extended Release 24hr 10 mg PO DAILY RF: 0 isosorbide mononitrate 60 mg Tablet Extended Release 24 Hr 60 mg PO QAM RF: 0 nystatin 100,000 unit/gram Cream 1 applic TOPICAL DAILY RF: 0 sertraline 25 mg Tablet 25 mg PO DAILY RF: 0 docusate sodium 100 mg capsule 100 mg PO BIDM RF: 0 Discontinued Toujeo SoloStar U-300 Insulin 300 unit/mL (1.5 mL) insulin pen 15 unit SUBCUT DAILY 30 Days Qty: 1.5 RF: 0 Discharge Orders: Discharge Order (Routine); Ordered 11/20/20 Ordered By: Kiran Garvin/Other Patient Handouts: A1C, Managing Type 2 Diabetes, Special Foot Care for Diabetes Admission Data Admit Date/Time: 11/17/20 16:25 Attending Provider: Kiran Rodriguez Admit Provider: Kiran Rodriguez Primary Care Provider: Tino Pete Other Providers: Gabriel Chiang ; [place],[facility] ; Raghav Maria at [facility] Other Interventions: Discharge Summary Assessment (RN) Last Done: 11/20/20 10:06 Coding Level of Care Code D/C DAY MANAGEMENT <30 MINS Diagnoses Generalized weakness R53.1 Neurogenic claudication due to lumbar spinal stenosis M48.062 Bladder outlet obstruction N32.0 Anemia of chronic disease D63.8 CKD (chronic kidney disease) N18.4 Chronic kidney disease stage: stage 4 (severe) Hypertrophic obstructive cardiomyopathy (HOCM) I42.1 Sinus node dysfunction I49.5 Hypertension I10 Diabetes E11.9 BPH with obstruction/lower urinary tract symptoms N40.1; N13.8 Deep vein thrombosis (DVT) of left lower extremity I82.402 Lower extremity edema R60.0 Ambulatory dysfunction R26.2 Anxiety and depression F41.9; F32.9 Cardiomyopathy I42.9 DVT prophylaxis Z29.9
== END 2020-11-20 10:50 | DRG 552 ==
LOC: 3W 12:48 → ED 12:48 → SUATTDRO 17:31 → 3W 18:35

== ENCOUNTER 2020-12-16 10:47 | Inpatient (IN) ==
[2020-12-16] MEDS ORDERED: SODIUM CHLORIDE 0.9% 1000ML 2,000 ML IV ONE (11:00)
--- NOTE | 2020-12-16 11:04 | Emergency Department Note ---
Impression & Plan BRIANNA (acute kidney injury), Anemia, Acute hypotension, Acute hypokalemia ED Provider Note NAME: ELISABETH DUGAN AGE: 75 SEX: M : 1945 ARRIVES VIA: Ambulance INFORMANT: Patient ED PROVIDER(S): Kiran Aragon DO CHIEF COMPLAINT: hypotension BRIANNA HPI: Patient is a 75-year-old male who presents the ER for low blood pressures in the 80s. He is a member at [facility]. He was transferred there due to weakness from [facility] several weeks ago. Denies any headache or change in vision. No chest pain or shortness of breath. He admits to diarrhea which has been about 5-10 times a day. Denies any dysuria urgency or frequency. No other exacerbating or remitting factors. He does feel weak all over. They did get blood work and his creatinine was in the fours and his potassium was 2. ROS: See above HPI for pertinent positives & negatives. A total of 10 systems reviewed and were otherwise negative. PAST MEDICAL HISTORY:See Below PAST SURGICAL HISTORY:See Below FAMILY HISTORY:See Below SOCIAL HISTORY:See Below HOME MEDICATIONS:See Below ALLERGIES:See Below VITALS:See Below PHYSICAL EXAMINATION: GENERAL: Sitting up in bed, alert, chronically ill-appearing, disheveled EYE EXAM: normal conjunctiva. PERRL and EOM's grossly intact. OROPHARYNX: no exudate, no erythema, lips, buccal mucosa, and tongue normal and mucous membranes are moist NECK: supple, no nuchal rigidity, no adenopathy, non-tender LUNGS: Clear to auscultation. Normal chest wall mechanics HEART: no murmurs, S1 normal and S2 normal ABDOMEN: abdomen soft, non-tender, normo-active bowel sounds, no masses, no rebound or guarding. UPPER EXTREMITIES: upper extremities are grossly normal. LOWER EXTREMITIES: No pitting edema. NEURO EXAM: Normal sensorium, cranial nerves II-XII grossly intact, normal speech, no gross weakness of arms, no gross weakness of legs. MEDICAL DECISION MAKING: Patient is a 69-year-old male referred in for hypotension from [facility]. He was stable obtained labs will mild anemia at 9.8P with potassium of 2 and a creatinine of 4.5 significantly elevated from sign of 1. LFTs bilirubin was low. Troponin was elevated 0.488. He denies any chest pain or shortness of breath. Do favor this secondary to the hypotension which is likely contributing to the acute he was given 2 L of IV fluids. Weight was unremarkable. Covid was negative. CT abdomen pelvis was unremarkable. I favor the majority of this is secondary to the diarrhea that he is having. Attempted obtain stool cultures but was unsuccessful. Chest x-ray showed a questionable abnormality which led to a KUB and a CT of the abdomen. Triage Nursing notes reviewed. Limited review of prior medical records performed Vital Signs: reviewed and remarkable for no significant abnormalities Differential diagnosis: Infection, dehydration, metabolic abnormality, hypo/hyperglycemia, electrolyte disturbance, anemia, hypoxia, cardiac sources, intracerebral event, toxicologic, neurologic, as well as other pathologies. ER treatment provided: See below Diagnostics interpreted by me: ECG: A. fib rate of 91 Left axis PVCs QTC 391 Poor baseline Cardiac Monitoring: An order was placed for continuous cardiac monitoring. The monitor shows a rate of 90 with Afib rhythm. Laboratory studies: As stated above and show below. Imaging studies: CT abdomen pelvis is unremarkable Chest x-ray and KUB as listed below Consultation(s): Discussed with the hospitalist for further evaluation Procedures: none Critical Care: None Past Med/Surg History Medical History Anemia of chronic disease BPH with obstruction/lower urinary tract symptoms CKD (chronic kidney disease) Deep vein thrombosis (DVT) of left lower extremity Diabetes Elevated troponin Hypertension Hypertrophic obstructive cardiomyopathy (HOCM) Low back pain Mobitz (type) II atrioventricular block Proteinuria Sinus node dysfunction Skin carcinoma Spinal stenosis Subclavian vein thromboembolism, acute Syncope and collapse Surgical History H/O arthroscopy of knee History of cataract surgery Status post placement of cardiac pacemaker Family History Mother Ovarian cancer Diabetes Father Diabetes Unknown Coronary heart disease Denies family history of Prostate cancer Myocardial infarction Breast cancer Colorectal cancer Social History Smoking Status: Never smoker Second Hand Exposure: No; Do You Dip or Chew Tobacco: No; Hx Alcohol Use: No Hx Substance Use: No Preferred Language: Icelandic Communication Ability: Effective Senior Integration Developer Required: No Beliefs That Will Affect Care: None marital status: / Current Living Situation: Skilled Nursing Current Living Situation Comment: home with brother, was just discharged from [facility] earlier today current occupational status: retired Other Information That Helps Us Care for You: No Feels Safe at Home: Yes Safety Concerns: Feels Safe At This Time Childhood Exposure to Second-Hand Smoke: No caffeine: Yes Dental Care, Regularly: Yes Physical Activity Frequency: 1-2 Times per Week Seatbelt Use: always Sunscreen Use: No Assistive Devices: Denture - Upper and Walker Allergies Allergies Allergy/AdvReac Type Severity Reaction Status Date / Time No Known Allergies Allergy ` Verified 12/16/20 13:47 Home Meds Home Medications Medication Instructions Recorded Confirmed allopurinol 300 mg tablet 300 mg PO QAM 10/19/20 12/16/20 aspirin 81 mg chewable tablet 81 mg PO QAM 10/19/20 12/16/20 calcium carbonate 600 mg-vitamin 1 tab PO QAM tab 10/19/20 12/16/20 D3 1,000 unit-vitamin K2 90 mcg tab docusate sodium 100 mg capsule 100 mg PO Q12H PRN 11/14/20 12/16/20 nystatin 100,000 unit/gram topical 1 applic TOPICAL DAILY 11/14/20 12/16/20 cream oxybutynin chloride 10 mg 10 mg PO QAM 11/14/20 12/16/20 tablet,extended release 24 hr sertraline 25 mg tablet 25 mg PO QAM 11/14/20 12/16/20 apixaban 5 mg tablet (Eliquis) 5 mg PO Q12H 12/16/20 12/16/20 cholecalciferol (vitamin D3) 25 1,000 units PO QAM 12/16/20 12/16/20 mcg (1,000 unit) capsule insulin aspart U-100 100 unit/mL 1 sliding scale dose SUBCUT 12/16/20 12/16/20 subcutaneous solution (Novolog USEASDIRECTD U-100 Insulin aspart) insulin glargine 100 unit/mL (3 8 unit SC QAM 12/16/20 12/16/20 mL) subcutaneous pen (Lantus Solostar U-100 Insulin) magnesium oxide 400 mg (241.3 mg 400 mg PO QAM 12/16/20 12/16/20 magnesium) tablet lecbyfdfxjfs-ancdfvrr-pzfqib 1 tab PO PM 12/16/20 12/16/20 tablet (Multivitamin 50 Plus) polyethylene glycol 3350 17 gram 17 g PO Q12H PRN 12/16/20 12/16/20 oral powder packet (Miralax) tamsulosin 0.4 mg capsule 0.4 mg PO Q12H 12/16/20 12/16/20 Previous Rx's Medication Instructions Recorded blood sugar diagnostic (OneTouch #100 ea 06/29/20 Ultra Blue Test Strip) acetaminophen 325 mg tablet 650 mg PO Q4H PRN #30 tab 10/09/20 cyanocobalamin (vitamin B-12) 500 1,000 mcg PO QAM #60 tab 10/09/20 mcg tablet finasteride 5 mg tablet (Proscar) 5 mg PO QAM #30 tab 10/09/20 atorvastatin 40 mg tablet 40 mg PO HS #30 tab 10/29/20 insulin aspart U-100 100 unit/mL 3 unit SC AC #3 ml 11/20/20 (3 mL) subcutaneous pen (Novolog Flexpen U-100 Insulin aspart) Results & Data (ED) Vital Signs Vital Signs - 24 hr 12/16/20 10:51 12/16/20 11:00 12/16/20 11:01 Temperature 36.5 C Temperature Source Oral Pulse Rate 85 63 98 H Pulse Rate from SpO2 Sensor 63 63 Respiratory Rate 24 24 18 Respiratory Effort / Characteristics Blood Pressure 114/53 L 124/58 L Blood Pressure Mean 77 73 80 Pulse Oximetry 97 99 97 Oxygen Delivery Method Room Air Sepsis Recent Fever Within 48 Hours No Sepsis New/Unexplained Change in Mental Status No Sepsis Action Taken by Nursing No Action Required 12/16/20 11:10 12/16/20 11:30 12/16/20 12:00 Temperature Temperature Source Pulse Rate 67 66 Pulse Rate from SpO2 Sensor 67 66 Respiratory Rate 16 24 Respiratory Effort / Characteristics Blood Pressure 140/62 135/59 L Blood Pressure Mean 88 84 Pulse Oximetry 97 100 100 Oxygen Delivery Method Room Air Sepsis Recent Fever Within 48 Hours Sepsis New/Unexplained Change in Mental Status Sepsis Action Taken by Nursing 12/16/20 12:10 12/16/20 12:31 12/16/20 12:47 Temperature Temperature Source Pulse Rate 65 Pulse Rate from SpO2 Sensor 65 Respiratory Rate 20 21 Respiratory Effort / Characteristics Non-Labored Spontaneous Blood Pressure Blood Pressure Mean 101 Pulse Oximetry 100 99 96 Oxygen Delivery Method Room Air Room Air Sepsis Recent Fever Within 48 Hours Sepsis New/Unexplained Change in Mental Status Sepsis Action Taken by Nursing 12/16/20 13:01 12/16/20 13:30 Temperature Temperature Source Pulse Rate 68 68 Pulse Rate from SpO2 Sensor 64 68 Respiratory Rate 20 24 Respiratory Effort / Characteristics Blood Pressure 142/111 H 113/51 L Blood Pressure Mean 121 71 Pulse Oximetry 99 97 Oxygen Delivery Method Sepsis Recent Fever Within 48 Hours Sepsis New/Unexplained Change in Mental Status Sepsis Action Taken by Nursing Laboratory Data Result diagrams: 12/16/20 11:16 12/16/20 11:16 Lab Results 12/16/20 12/16/20 12/16/20 Range/Units 11:16 11:16 11:16 WBC 7.09 (4.8-10.8) K/uL RBC 3.12 L (4.7-6.1) M/uL Hgb 9.8 L (14.0-18.0) g/dL Hct 27.9 L (42-52) % MCV 89.4 (80-100) fL MCH 31.4 (25-34) pg MCHC 35.1 (32-36) g/dL RDW Std Deviation 46.9 H (36.4-46.3) fL RDW Coeff of Nona 14.3 (11.5-14.5) % Plt Count 140 (130-400) K/uL MPV 11.2 H (7.4-10.4) fL Immature Gran % (Auto) 0.1 % Neut % (Auto) 69.0 % Lymph % (Auto) 16.5 % Ellsworth % (Auto) 10.6 % Eos % (Auto) 3.7 % Baso % (Auto) 0.1 % Neut # (Auto) 4.89 (1.4-6.5) K/uL Lymph # (Auto) 1.17 L (1.2-3.4) K/uL Ellsworth # (Auto) 0.75 H (0.11-0.59) K/uL Eos # (Auto) 0.26 (0-0.5) K/uL Baso # (Auto) 0.01 (0-0.2) K/uL Immature Gran # (Auto) 0.01 (0.00-0.02) K/uL PT (9.0-12.0) Seconds INR (0.9-1.1) APTT (21.0-31.0) Seconds PTT Ratio Sodium 133 L (136-145) mmol/L Potassium 2.4 L* (3.5-5.1) mmol/L Chloride 100 (98-107) mmol/L Carbon Dioxide 19 L (21-32) mmol/L Anion Gap 13.0 H (3-11) BUN 90 H (7-18) mg/dl Creatinine 4.71 H* (0.6-1.4) mg/dl Est Cr Clr Drug Dosing 15.5 ml/min Est GFR ( Amer) 13.0 ml/min Est GFR (Non-Af Amer) 11.2 ml/min BUN/Creatinine Ratio 19.2 (10-20) Glucose 186 H (70-99) mg/dl Lactate (0.4-2.0) mmol/L Calcium 8.9 (8.5-10.1) mg/dl Magnesium 2.8 H (1.8-2.4) mg/dl Total Bilirubin 0.5 (0.2-1) mg/dl AST 41 H (15-37) U/L ALT 19 (12-78) U/L Alkaline Phosphatase 82 (45-117) U/L Troponin I 0.488 H* (0-0.045) ng/ml Total Protein 6.8 (6.4-8.2) gm/dl Albumin 3.2 L (3.4-5.0) gm/dl Globulin 3.6 (2.5-4.0) gm/dl Albumin/Globulin Ratio 0.9 (0.9-2) Procalcitonin 0.37 (0-0.5) ng/ml Urine Color Urine Appearance (Clear) Urine pH (4.5-7.5) Ur Specific Garrison (1.000-1.030) Urine Protein (Negative) Urine Glucose (UA) (Negative) Urine Ketones (Negative) Urine Blood (Negative) Urine Nitrite (Negative) Urine Bilirubin (Negative) Urine Urobilinogen (Negative) Ur Leukocyte Esterase (Negative) COVID-19 Eval Order SARS-CoV-2 (PCR) (Negative) 12/16/20 12/16/20 12/16/20 Range/Units 11:16 11:16 11:30 WBC (4.8-10.8) K/uL RBC (4.7-6.1) M/uL Hgb (14.0-18.0) g/dL Hct (42-52) % MCV (80-100) fL MCH (25-34) pg MCHC (32-36) g/dL RDW Std Deviation (36.4-46.3) fL RDW Coeff of Nona (11.5-14.5) % Plt Count (130-400) K/uL MPV (7.4-10.4) fL Immature Gran % (Auto) % Neut % (Auto) % Lymph % (Auto) % Ellsworth % (Auto) % Eos % (Auto) % Baso % (Auto) % Neut # (Auto) (1.4-6.5) K/uL Lymph # (Auto) (1.2-3.4) K/uL Ellsworth # (Auto) (0.11-0.59) K/uL Eos # (Auto) (0-0.5) K/uL Baso # (Auto) (0-0.2) K/uL Immature Gran # (Auto) (0.00-0.02) K/uL PT 11.9 (9.0-12.0) Seconds INR 1.2 H (0.9-1.1) APTT 42.1 H (21.0-31.0) Seconds PTT Ratio 1.6 Sodium (136-145) mmol/L Potassium (3.5-5.1) mmol/L Chloride (98-107) mmol/L Carbon Dioxide (21-32) mmol/L Anion Gap (3-11) BUN (7-18) mg/dl Creatinine (0.6-1.4) mg/dl Est Cr Clr Drug Dosing ml/min Est GFR ( Amer) ml/min Est GFR (Non-Af Amer) ml/min BUN/Creatinine Ratio (10-20) Glucose (70-99) mg/dl Lactate 1.5 (0.4-2.0) mmol/L Calcium (8.5-10.1) mg/dl Magnesium (1.8-2.4) mg/dl Total Bilirubin (0.2-1) mg/dl AST (15-37) U/L ALT (12-78) U/L Alkaline Phosphatase (45-117) U/L Troponin I (0-0.045) ng/ml Total Protein (6.4-8.2) gm/dl Albumin (3.4-5.0) gm/dl Globulin (2.5-4.0) gm/dl Albumin/Globulin Ratio (0.9-2) Procalcitonin (0-0.5) ng/ml Urine Color Urine Appearance (Clear) Urine pH (4.5-7.5) Ur Specific Garrison (1.000-1.030) Urine Protein (Negative) Urine Glucose (UA) (Negative) Urine Ketones (Negative) Urine Blood (Negative) Urine Nitrite (Negative) Urine Bilirubin (Negative) Urine Urobilinogen (Negative) Ur Leukocyte Esterase (Negative) COVID-19 Eval Order Covid19 at [facility] SARS-CoV-2 (PCR) (Negative) 12/16/20 12/16/20 Range/Units 11:30 11:30 WBC (4.8-10.8) K/uL RBC (4.7-6.1) M/uL Hgb (14.0-18.0) g/dL Hct (42-52) % MCV (80-100) fL MCH (25-34) pg MCHC (32-36) g/dL RDW Std Deviation (36.4-46.3) fL RDW Coeff of Nona (11.5-14.5) % Plt Count (130-400) K/uL MPV (7.4-10.4) fL Immature Gran % (Auto) % Neut % (Auto) % Lymph % (Auto) % Ellsworth % (Auto) % Eos % (Auto) % Baso % (Auto) % Neut # (Auto) (1.4-6.5) K/uL Lymph # (Auto) (1.2-3.4) K/uL Ellsworth # (Auto) (0.11-0.59) K/uL Eos # (Auto) (0-0.5) K/uL Baso # (Auto) (0-0.2) K/uL Immature Gran # (Auto) (0.00-0.02) K/uL PT (9.0-12.0) Seconds INR (0.9-1.1) APTT (21.0-31.0) Seconds PTT Ratio Sodium (136-145) mmol/L Potassium (3.5-5.1) mmol/L Chloride (98-107) mmol/L Carbon Dioxide (21-32) mmol/L Anion Gap (3-11) BUN (7-18) mg/dl Creatinine (0.6-1.4) mg/dl Est Cr Clr Drug Dosing ml/min Est GFR ( Amer) ml/min Est GFR (Non-Af Amer) ml/min BUN/Creatinine Ratio (10-20) Glucose (70-99) mg/dl Lactate (0.4-2.0) mmol/L Calcium (8.5-10.1) mg/dl Magnesium (1.8-2.4) mg/dl Total Bilirubin (0.2-1) mg/dl AST (15-37) U/L ALT (12-78) U/L Alkaline Phosphatase (45-117) U/L Troponin I (0-0.045) ng/ml Total Protein (6.4-8.2) gm/dl Albumin (3.4-5.0) gm/dl Globulin (2.5-4.0) gm/dl Albumin/Globulin Ratio (0.9-2) Procalcitonin (0-0.5) ng/ml Urine Color Dark Yellow Urine Appearance Clear (Clear) Urine pH 5.0 (4.5-7.5) Ur Specific Garrison 1.023 (1.000-1.030) Urine Protein Negative (Negative) Urine Glucose (UA) Negative (Negative) Urine Ketones Trace H (Negative) Urine Blood Negative (Negative) Urine Nitrite Negative (Negative) Urine Bilirubin 1+ H (Negative) Urine Urobilinogen Negative (Negative) Ur Leukocyte Esterase Negative (Negative) COVID-19 Eval Order SARS-CoV-2 (PCR) NEGATIVE (Negative) Administered Medications Potassium Chloride/Sodium Chloride (Normal Saline W/20 Meq Kcl) 20 meq in 1,000 mls @ 125 mls/hr IV .Q8H NAA Stop: 01/15/21 16:41 Last Admin: 12/16/20 17:26 Dose: 125 mls/hr Documented by: [id number] Insulin Aspart (Insulin Aspart 100 Units/Ml 3 Ml Pen) 0 units SC ACHS NAA Stop: 01/15/21 16:41 Last Admin: 12/16/20 18:24 Dose: 3 units Documented by: [id number] Cosigned by: [id number] Discontinued Medications Sodium Chloride (Nss 1000ml) 2,000 mls @ 999 mls/hr IV .Q2H1M ONE Stop: 12/16/20 13:00 Last Infusion: 12/16/20 13:37 Dose: 0 mls/hr Documented by: [id number] Admin: 12/16/20 11:36 Dose: 999 mls/hr Documented by: [id number] Potassium Chloride (K Ramón / Wtr) 10 meq in 100 mls @ 100 mls/hr IV ONE ONE Stop: 12/16/20 13:19 Last Infusion: 12/16/20 13:29 Dose: 0 mls/hr Documented by: [id number] Admin: 12/16/20 12:25 Dose: 100 mls/hr Documented by: [id number] Piperacillin Sod/Tazobactam Sod (Zosyn) 4.5 gm in 120 mls @ 240 mls/hr IV NOW ONE Stop: 12/16/20 13:26 Last Infusion: 12/16/20 13:33 Dose: 0 mls/hr Documented by: [id number] Admin: 12/16/20 13:02 Dose: 240 mls/hr Documented by: [id number] Imaging Data Radiologist's Impression: Chest X-Ray 12/16/20 11:01 XR chest 1V portable CLINICAL HISTORY: SEPSIS COMPARISON STUDY: November 14, 2020 FINDINGS: No pneumothorax. No pleural effusion. Lung volumes are decreased with crowded lung markings. No large infiltrates or consolidative lesions are seen. Interval development of questionable lucency under the right hemidiaphragm which most likely represent gas within superimposed loop of bowel however please note that free intra-abdominal gas sometimes might have similar appearance. Cardiomediastinal silhouette is within normal limits in size. No significant pulmonary vascular congestion.. Osseous structures: Degenerative changes of the spine. IMPRESSION: 1. No large infiltrates or consolidative lesions. Low lung volumes associated with crowded lung markings. 2. Questionable lucency under right hemidiaphragm most likely due to gas in interposed loop of bowel however please note that sometimes free intra-abdominal gas might have similar appearance. As a precaution further evaluation with left decubitus KUB is recommended. Report will be sent to emergency Department. ACT 112: Negative or not required by law. The above report was generated using voice recognition software. It may contain grammatical, syntax or spelling errors. Electronically signed by: Kalpana Whitfield DO 12/16/2020 11:39 AM KUB X-Ray 12/16/20 11:47 KUB HISTORY: Generalized abdominal pain. ? free air COMPARISON: None. FINDINGS: Mildly dilated gas-filled loops of colon. This results in mild elevation the right hemidiaphragm. However, no pneumoperitoneum. No pneumatosis. No renal calculi. No ureteral calculi. There is a left-sided dual-chamber pacemaker. Bibasilar linear densities consistent with subsegmental atelectasis. IMPRESSION: 1. No pneumoperitoneum. 2. Mildly dilated gas-filled colon. This suggests an ileus. ACT 112: Negative or not required by law. Electronically signed by: Fahad Leon M.D. 12/16/2020 1:02 PM Abdomen/Pelvis CT 12/16/20 12:57 CT abd pelvis wo con CLINICAL INDICATION: MN ^CTR RM A12 ^sepsis. TECHNIQUE: Helical axial images of the abdomen and pelvis were obtained and displayed at 5 and 1 mm intervals. Automated dose lowering techniques and/or adjustment according to patient size were utilized for this exam. This exam was performed with intravenous contrast. COMPARISON: Comparison is made to CT abdomen and pelvis 10/01/2020 FINDINGS: Lower chest: No acute abnormality Liver: Unremarkable. No focal lesions are seen. Gallbladder and biliary tree: The gallbladder is distended. No intra- or extrahe patic biliary ductal dilation. Pancreas: Fatty replacement of the pancreas is seen. Spleen: Unremarkable. Adrenals: Unremarkable. Kidneys and ureters: Perinephric stranding is noted bilaterally. Bladder: King catheter is seen. Bowel: The colon demonstrates notable thickening and mild surrounding fat stranding in the sigmoid region. A moderate amount of gas is seen. Lymph nodes Retroperitoneal: Unremarkable. Mesenteric: Unremarkable. Pelvic: Unremarkable. Reproductive organs: Unremarkable. Peritoneum: Scattered fat stranding is seen. Vessels: Atherosclerotic calcifications are seen. Abdominal wall: Unremarkable. Bones: Degenerative changes in the visualized spine. IMPRESSION: Sigmoid bowel thickening may represent infectious/inflammatory colitis. Otherwise no acute abnormality is seen. ACT 112: Negative or not required by law. Electronically signed by: Adonay Elizabeth M.D. 12/16/2020 3:29 PM Discharge Plan Visit Data Chief Complaint: Hypotension Stated Complaint: ABNORMAL LABS ED Provider: Kiran Aragon Discharge Problem: BRIANNA (acute kidney injury), Anemia, Acute hypotension, Acute hypokalemia Patient Disposition: Admitted As Inpatient Discharge Instructions Interventions: ED Discharge Assessment Last Done: 12/16/20 15:18 Discharge Problem: Anemia Qualifiers: Anemia type: unspecified type Qualified Code(s): D64.9 - Anemia, unspecified
[2020-12-16 11:29] LABS: Basophils # (auto) 0.01 K/uL (0-0.2); Basophils % (auto) 0.1 %; Eosinophils # (auto) 0.26 K/uL (0-0.5); Eosinophils % (auto) 3.7 %; Hematocrit (blood only) 27.9 % (42-52); Hemoglobin 9.8 g/dL (14.0-18.0); Immature Granulocytes # (auto) 0.01 K/uL (0.00-0.02); Immature Granulocytes % (auto) 0.1 %; Lymphocytes # (auto) 1.17 K/uL (1.2-3.4); Lymphocytes % (auto) 16.5 %; Mean Corpuscular Hemoglobin 31.4 pg (25-34); Mean Corpuscular Hgb Conc 35.1 g/dL (32-36); Mean Corpuscular Volume 89.4 fL (80-100); Mean Platelet Volume 11.2 fL (7.4-10.4); Monocytes # (auto) 0.75 K/uL (0.11-0.59); Monocytes % (auto) 10.6 %; Neutrophils # (auto) 4.89 K/uL (1.4-6.5); Platelet Count 140 K/uL (130-400); RDW Coefficient of Variation 14.3 % (11.5-14.5); RDW Standard Deviation 46.9 fL (36.4-46.3); Red Blood Count 3.12 M/uL (4.7-6.1); White Blood Count 7.09 K/uL (4.8-10.8)
[2020-12-16 11:40] LABS: INR 1.2 (0.9-1.1); Partial Thromboplastin Ratio 1.6; Partial Thromboplastin Time 42.1 Seconds (21.0-31.0); Prothrombin Time 11.9 Seconds (9.0-12.0)
--- NOTE | 2020-12-16 11:40 | XRay Report ---
XR chest 1V portable CLINICAL HISTORY: SEPSIS COMPARISON STUDY: November 14, 2020 FINDINGS: No pneumothorax. No pleural effusion. Lung volumes are decreased with crowded lung markings. No large infiltrates or consolidative lesions are seen. Interval development of questionable lucency under the right hemidiaphragm which most likely represen t gas within superimposed loop of bowel however please note that free intra-abdominal gas sometimes m ight have similar appearance. Cardiomediastinal silhouette is within normal limits in size. No significant pulmonary vascular congestion.. Osseous structures: Degenerative changes of the spine. IMPRESSION: 1. No large infiltrates or consolidative lesions. Low lung volumes associated with crowded lung janet ings. 2. Questionable lucency under right hemidiaphragm most likely due to gas in interposed loop of bowel however please note that sometimes free intra-abdominal gas might have similar appearance. As a prec aution further evaluation with left decubitus KUB is recommended. Report will be sent to emergency [place] part[place]. ACT 112: Negative or not required by law. The above report was generated using voice recognition software. It may contain grammatical, syntax o r spelling errors. Electronically signed by: Kalpana Whitfield DO 12/16/2020 11:39 AM
[2020-12-16 12:02] LABS: Albumin Globulin Ratio 0.9 (0.9-2); Albumin Level 3.2 gm/dl (3.4-5.0); BUN Creatinine Ratio 19.2 (10-20); Bilirubin,Total 0.5 mg/dl (0.2-1); Calcium 8.9 mg/dl (8.5-10.1); Creatinine Clr Calc Pharmacy 15.5 ml/min; Est GFR (Non-African American) 11.2 ml/min; Globulin 3.6 gm/dl (2.5-4.0); Magnesium 2.8 mg/dl (1.8-2.4); Potassium 2.4 mmol/L (3.5-5.1); Total Protein 6.8 gm/dl (6.4-8.2); Troponin I 0.488 ng/ml (0-0.045)
[2020-12-16 12:11] LABS: Appearance Urine Clear (Clear); Blood Urine Negative (Negative); Color Urine Dark Yellow; Glucose Urine UA Negative (Negative); Ketones Urine Trace (Negative); Leukocyte Esterase Urine Negative (Negative); Nitrite Urine Negative (Negative); Protein Urine Negative (Negative); Specific Gravity Urine 1.023 (1.000-1.030); Urobilinogen Urine Negative (Negative)
[2020-12-16 12:17] LABS: Bilirubin Urine 1+ (Negative)
[2020-12-16] MEDS ORDERED: POTASSIUM CHLORIDE / WTR 10 MEQ/100 ML PLCT IV ONE (12:20)
[2020-12-16] MEDS ORDERED: PIPERACILL/TAZOBAC CONSULT ACTIVE PRN (12:57)
[2020-12-16] MEDS ORDERED: PIPERACILLIN/TAZOBACTAM 4.5 GM/120 ML BAG IV ONE (12:57)
--- NOTE | 2020-12-16 13:03 | XRay Report ---
KUB HISTORY: Generalized abdominal pain. ? free air COMPARISON: None. FINDINGS: Mildly dilated gas-filled loops of colon. This results in mild elevation the right hemidiap hragm. However, no pneumoperitoneum. No pneumatosis. No renal calculi. No ureteral calculi. There is a left-sided dual-chamber pacemaker. Bibasilar linear densities consistent with subsegmental atelect asis. IMPRESSION: 1. No pneumoperitoneum. 2. Mildly dilated gas-filled colon. This suggests an ileus. ACT 112: Negative or not required by law. Electronically signed by: Fahad Leon M.D. 12/16/2020 1:02 PM
--- NOTE | 2020-12-16 13:41 | History & Physical Report ---
Date of Service December 16, 2020 Assessment & Plan (1) Diarrhea: Plan: Acute diarrhea, likely because of multiple issues listed below KUB shows no free air, only ileus. Will order CT scan with no IV contrast Stool cultures including C. difficile. Clear liquids only for now Patient was given IV Zosyn, will hold off on further antibiotics for now Further treatment as noted below (2) Hypotension: Plan: This seems to be improved from a reported values Continue IV hydration as noted with normal saline. We will add some potassium supplementation as well Hold antihypertensives including lisinopril and metoprolol (3) Hypokalemia: Plan: Patient was given a K rider in the ER, I will continue IV supplementation of potassium Add potassium to IV fluids and Check magnesium. I do see patient is on magnesium supplements per his medication record, wall this as this can worsen diarrhea (4) Diabetes: Plan: Patient is Lantus along with mealtime insulin, I will cut Lantus down to 4 units until patient is back on a regular diet Start sliding scale (5) BRIANNA (acute kidney injury): Plan: Patient does have history of CKD, creatinine is very elevated from his baseline Discontinued lisinopril as noted IV hydration as above, monitor renal function and sodium levels (6) Elevated troponin: Plan: Elevated troponin likely secondary to type II cardiac strain Trend cardiac enzymes We will ask cardiology for further recommendations History of Present Illness Chief Complaint: hypotension Primary Care Provider: [facility] This is a 75-year-old male with past medical history of CKD, HCM, previous TIA, sinus node dysfunction status post pacemaker presents today with hypertension. Patient is a resident of [facility] and is unfortunately a limited historian. Patient has been at [facility] secondary to ongoing weakness, has been getting rehab. The patient tells me he had some lab work today and everybody "got excited "and sent him to the hospital. He is only complaining of some irritation in his rectal area. On further questioning, the patient tells me has been having 5-10 diarrhea bowel movements for over a week. Has had no nausea vomiting although he is noted some diminished appetite. Per ER documentation, patient had documented blood pressure in the 80s at the prison. His blood pressure here is now 135/59. Lab work from the prison is not available but I was told by the ER physician that the potassium was down to 2 and his creatinine was up to 4. Repeat laboratory work was ordered and I did reviewed here which is consistent with these lab values. Allergies Allergy/AdvReac Type Severity Reaction Status Date / Time No Known Allergies Allergy ` Verified 12/16/20 13:47 Home Medications Medication Instructions Recorded Confirmed Type cholecalciferol (vitamin D3) 25 1,000 units PO DAILY #90 cap 09/09/19 11/14/20 Rx mcg (1,000 unit) capsule felodipine 10 mg tablet,extended 10 mg PO DAILY #90 tab 02/04/20 11/14/20 Rx release 24 hr blood sugar diagnostic (OneTouch #100 ea 06/29/20 09/14/20 Rx Ultra Blue Test Strip) apixaban 5 mg tablet (Eliquis) 5 mg PO BID #60 tab 07/13/20 11/14/20 Rx acetaminophen 325 mg tablet 650 mg PO Q4H PRN #30 tab 10/09/20 11/14/20 Rx cyanocobalamin (vitamin B-12) 500 1,000 mcg PO QAM #60 tab 10/09/20 11/14/20 Rx mcg tablet finasteride 5 mg tablet (Proscar) 5 mg PO QAM #30 tab 10/09/20 11/14/20 Rx polyethylene glycol 3350 17 gram 17 g PO DAILY #30 ea 10/09/20 11/14/20 Rx oral powder packet (Miralax) tamsulosin 0.4 mg capsule 0.4 mg PO BID #60 cap 10/09/20 11/14/20 Rx allopurinol 300 mg tablet 300 mg PO DAILY 10/19/20 11/14/20 History aspirin 81 mg chewable tablet 81 mg PO DAILY 10/19/20 11/14/20 History calcium carbonate 600 mg-vitamin 1 tab PO DAILY tab 10/19/20 11/14/20 History D3 1,000 unit-vitamin K2 90 mcg tab atorvastatin 40 mg tablet 40 mg PO HS #30 tab 10/29/20 11/14/20 Rx lisinopril 20 mg tablet 20 mg PO QPM #30 tab 10/29/20 11/14/20 Rx metoprolol succinate 200 mg 200 mg PO PM #30 tab 10/29/20 11/14/20 Rx tablet,extended release 24 hr docusate sodium 100 mg capsule 100 mg PO BIDM 11/14/20 11/14/20 History isosorbide mononitrate 60 mg 60 mg PO QAM 11/14/20 11/14/20 History tablet,extended release 24 hr nystatin 100,000 unit/gram topical 1 applic TOPICAL DAILY 11/14/20 11/14/20 History cream oxybutynin chloride 10 mg 10 mg PO DAILY 11/14/20 11/14/20 History tablet,extended release 24 hr sertraline 25 mg tablet 25 mg PO DAILY 11/14/20 11/14/20 History insulin aspart U-100 100 unit/mL 3 unit SC AC #3 ml 11/20/20 Rx (3 mL) subcutaneous pen (Novolog Flexpen U-100 Insulin aspart) insulin glargine 100 unit/mL (3 8 unit SC DAILY #3 ml 11/20/20 Rx mL) subcutaneous pen (Lantus Solostar U-100 Insulin) magnesium oxide 400 mg (241.3 mg 400 mg PO DAILY #30 tab 11/20/20 Rx magnesium) tablet Past Med/Surg History Medical History Anemia of chronic disease BPH with obstruction/lower urinary tract symptoms CKD (chronic kidney disease) Deep vein thrombosis (DVT) of left lower extremity Diabetes Elevated troponin Hypertension Hypertrophic obstructive cardiomyopathy (HOCM) Low back pain Mobitz (type) II atrioventricular block Proteinuria Sinus node dysfunction Skin carcinoma Spinal stenosis Subclavian vein thromboembolism, acute Syncope and collapse Surgical History H/O arthroscopy of knee History of cataract surgery Status post placement of cardiac pacemaker Family History Mother Ovarian cancer Diabetes Father Diabetes Unknown Coronary heart disease Denies family history of Prostate cancer Myocardial infarction Breast cancer Colorectal cancer Social History Smoking Status: Never smoker Second Hand Exposure: No; Hx Alcohol Use: No Hx Substance Use: No Preferred Language: Montenegrin Communication Ability: Effective Patient Safety Tech Required: No Beliefs That Will Affect Care: None marital status: / Current Living Situation: Alone Current Living Situation Comment: home with brother, was just discharged from [facility] earlier today current occupational status: retired Feels Safe at Home: Yes Childhood Exposure to Second-Hand Smoke: No caffeine: Yes Dental Care, Regularly: Yes Physical Activity Frequency: 1-2 Times per Week Seatbelt Use: always Sunscreen Use: No Assistive Devices: Walker Review of Systems Constitutional: + fatigue and + weakness; no fever, no chills, no weight loss and no weight gain Eyes: as per Subjective / HPI Respiratory: no cough, no chest congestion, no dyspnea and no dyspnea on exertion Cardiovascular: no chest pain, no orthopnea, no palpitations, no lightheadedness and no edema Gastrointestinal: + diarrhea/loose stools; no abdominal pain, no nausea, no vomiting and no constipation Musculoskeletal: no back pain, no neck pain, no joint pain, no stiffness and no myalgia Integumentary: no rash Neurologic: no gait abnormality, no unsteadiness, no falls and no generalized weakness Physical Exam Constitutional: cooperative; no acute distress ENMT: MMM Neck: trachea midline, no thyromegaly Respiratory: normal respiratory effort Auscultation: lungs clear to auscultation bilaterally; no crackles, no rales, no rhonchi and no wheezes Cardiovascular: Rate/Rhythm: regular rate and regular rhythm Heart Sounds: normal S1 and normal S2 Gastrointestinal (Abdomen): Inspection/Auscultation: abdomen normal to inspection Percussion/Palpation: + abdomen tender (mild diffuse) and abdomen soft; no guarding, abdomen not rigid and no hepatosplenomegaly Skin: no rashes, warm and dry Results & Data Results & Data ([facility]) Vital Signs (Past 12 Hours) Vital Signs Temp Pulse Resp BP Pulse Ox 12/16/20 12:47 96 12/16/20 12:31 65 21 99 12/16/20 12:10 20 100 12/16/20 12:00 66 24 135/59 L 100 12/16/20 11:30 67 16 140/62 100 12/16/20 11:10 97 12/16/20 11:01 36.5 C 98 H 18 124/58 L 97 12/16/20 11:00 63 24 114/53 L 99 12/16/20 10:51 85 24 97 Laboratory Results Laboratory Results WBC 7.09 K/uL (4.8-10.8) 12/16/20 11:16 RBC 3.12 M/uL (4.7-6.1) L 12/16/20 11:16 Hgb 9.8 g/dL (14.0-18.0) L 12/16/20 11:16 Hct 27.9 % (42-52) L 12/16/20 11:16 MCV 89.4 fL (80-100) 12/16/20 11:16 MCH 31.4 pg (25-34) 12/16/20 11:16 MCHC 35.1 g/dL (32-36) 12/16/20 11:16 RDW Std Deviation 46.9 fL (36.4-46.3) H 12/16/20 11:16 RDW Coeff of Nona 14.3 % (11.5-14.5) 12/16/20 11:16 Plt Count 140 K/uL (130-400) 12/16/20 11:16 MPV 11.2 fL (7.4-10.4) H 12/16/20 11:16 Immature Gran % (Auto) 0.1 % 12/16/20 11:16 Neut % (Auto) 69.0 % 12/16/20 11:16 Lymph % (Auto) 16.5 % 12/16/20 11:16 Park % (Auto) 10.6 % 12/16/20 11:16 Eos % (Auto) 3.7 % 12/16/20 11:16 Baso % (Auto) 0.1 % 12/16/20 11:16 Neut # (Auto) 4.89 K/uL (1.4-6.5) 12/16/20 11:16 Lymph # (Auto) 1.17 K/uL (1.2-3.4) L 12/16/20 11:16 Park # (Auto) 0.75 K/uL (0.11-0.59) H 12/16/20 11:16 Eos # (Auto) 0.26 K/uL (0-0.5) 12/16/20 11:16 Baso # (Auto) 0.01 K/uL (0-0.2) 12/16/20 11:16 Immature Gran # (Auto) 0.01 K/uL (0.00-0.02) 12/16/20 11:16 PT 11.9 Seconds (9.0-12.0) 12/16/20 11:16 INR 1.2 (0.9-1.1) H 12/16/20 11:16 APTT 42.1 Seconds (21.0-31.0) H 12/16/20 11:16 PTT Ratio 1.6 12/16/20 11:16 Sodium 133 mmol/L (136-145) L 12/16/20 11:16 Potassium 2.4 mmol/L (3.5-5.1) L* 12/16/20 11:16 Chloride 100 mmol/L (98-107) 12/16/20 11:16 Carbon Dioxide 19 mmol/L (21-32) L 12/16/20 11:16 Anion Gap 13.0 (3-11) H 12/16/20 11:16 BUN 90 mg/dl (7-18) H 12/16/20 11:16 Creatinine 4.71 mg/dl (0.6-1.4) H* 12/16/20 11:16 Est Cr Clr Drug Dosing 15.5 ml/min 12/16/20 11:16 Est GFR ( Amer) 13.0 ml/min 12/16/20 11:16 Est GFR (Non-Af Amer) 11.2 ml/min 12/16/20 11:16 BUN/Creatinine Ratio 19.2 (10-20) 12/16/20 11:16 Glucose 186 mg/dl (70-99) H 12/16/20 11:16 Lactate 1.5 mmol/L (0.4-2.0) 12/16/20 11:16 Calcium 8.9 mg/dl (8.5-10.1) 12/16/20 11:16 Magnesium 2.8 mg/dl (1.8-2.4) H 12/16/20 11:16 Total Bilirubin 0.5 mg/dl (0.2-1) 12/16/20 11:16 AST 41 U/L (15-37) H 12/16/20 11:16 ALT 19 U/L (12-78) 12/16/20 11:16 Alkaline Phosphatase 82 U/L (45-117) 12/16/20 11:16 Troponin I 0.488 ng/ml (0-0.045) H* 12/16/20 11:16 Total Protein 6.8 gm/dl (6.4-8.2) 12/16/20 11:16 Albumin 3.2 gm/dl (3.4-5.0) L 12/16/20 11:16 Globulin 3.6 gm/dl (2.5-4.0) 12/16/20 11:16 Albumin/Globulin Ratio 0.9 (0.9-2) 12/16/20 11:16 Procalcitonin 0.37 ng/ml (0-0.5) 12/16/20 11:16 Urine Color Dark Yellow 12/16/20 11:30 Urine Appearance Clear (Clear) 12/16/20 11:30 Urine pH 5.0 (4.5-7.5) 12/16/20 11:30 Ur Specific Hammond 1.023 (1.000-1.030) 12/16/20 11:30 Urine Protein Negative (Negative) 12/16/20 11:30 Urine Glucose (UA) Negative (Negative) 12/16/20 11:30 Urine Ketones Trace (Negative) H 12/16/20 11:30 Urine Blood Negative (Negative) 12/16/20 11:30 Urine Nitrite Negative (Negative) 12/16/20 11:30 Urine Bilirubin 1+ (Negative) H 12/16/20 11:30 Urine Urobilinogen Negative (Negative) 12/16/20 11:30 Ur Leukocyte Esterase Negative (Negative) 12/16/20 11:30 COVID-19 Eval Order Covid19 at [facility] 12/16/20 11:30 SARS-CoV-2 (PCR) NEGATIVE (Negative) 12/16/20 11:30 Impressions Chest X-Ray 12/16/20 11:01 XR chest 1V portable CLINICAL HISTORY: SEPSIS COMPARISON STUDY: November 14, 2020 FINDINGS: No pneumothorax. No pleural effusion. Lung volumes are decreased with crowded lung markings. No large infiltrates or consolidative lesions are seen. Interval development of questionable lucency under the right hemidiaphragm which most likely represent gas within superimposed loop of bowel however please note that free intra-abdominal gas sometimes might have similar appearance. Cardiomediastinal silhouette is within normal limits in size. No significant pulmonary vascular congestion.. Osseous structures: Degenerative changes of the spine. IMPRESSION: 1. No large infiltrates or consolidative lesions. Low lung volumes associated with crowded lung markings. 2. Questionable lucency under right hemidiaphragm most likely due to gas in interposed loop of bowel however please note that sometimes free intra-abdominal gas might have similar appearance. As a precaution further evaluation with left decubitus KUB is recommended. Report will be sent to emergency Department. ACT 112: Negative or not required by law. The above report was generated using voice recognition software. It may contain grammatical, syntax or spelling errors. Electronically signed by: Kalpana Whitfield DO 12/16/2020 11:39 AM KUB X-Ray 12/16/20 11:47 KUB HISTORY: Generalized abdominal pain. ? free air COMPARISON: None. FINDINGS: Mildly dilated gas-filled loops of colon. This results in mild elevation the right hemidiaphragm. However, no pneumoperitoneum. No pneumatosis. No renal calculi. No ureteral calculi. There is a left-sided dual-chamber pacemaker. Bibasilar linear densities consistent with subsegmental atelectasis. IMPRESSION: 1. No pneumoperitoneum. 2. Mildly dilated gas-filled colon. This suggests an ileus. ACT 112: Negative or not required by law. Electronically signed by: Fahad Leon M.D. 12/16/2020 1:02 PM PG Care Time/CCT Total # of Minutes Spent Total Time Spent with Patient: Total time spent is greater than 50% in coordination of care (as documented) at patient's floor/unit and/or counseling patient: Coding Level of Care Code 94203 Initial Inpt Care Lvl 3 Diagnoses Hypotension I95.9 Diabetes E11.9 BRIANNA (acute kidney injury) N17.9 Hypokalemia E87.6 Diarrhea R19.7 Elevated troponin R77.8
--- NOTE | 2020-12-16 15:31 | CT Scan Report ---
CT abd pelvis wo con CLINICAL INDICATION: MN ^CTR RM A12 ^sepsis. TECHNIQUE: Helical axial images of the abdomen and pelvis were obtained and displayed at 5 and 1 mm i ntervals. Automated dose lowering techniques and/or adjustment according to patient size were utilize d for this exam. This exam was performed with intravenous contrast. COMPARISON: Comparison is made to CT abdomen and pelvis 10/01/2020 FINDINGS: Lower chest: No acute abnormality Liver: Unremarkable. No focal lesions are seen. Gallbladder and biliary tree: The gallbladder is distended. No intra- or extrahepatic biliary ductal dilation. Pancreas: Fatty replacement of the pancreas is seen. Spleen: Unremarkable. Adrenals: Unremarkable. Kidneys and ureters: Perinephric stranding is noted bilaterally. Bladder: King catheter is seen. Bowel: The colon demonstrates notable thickening and mild surrounding fat stranding in the sigmoid re gion. A moderate amount of gas is seen. Lymph nodes Retroperitoneal: Unremarkable. Mesenteric: Unremarkable. Pelvic: Unremarkable. Reproductive organs: Unremarkable. Peritoneum: Scattered fat stranding is seen. Vessels: Atherosclerotic calcifications are seen. Abdominal wall: Unremarkable. Bones: Degenerative changes in the visualized spine. IMPRESSION: Sigmoid bowel thickening may represent infectious/inflammatory colitis. Otherwise no acute abnormalit y is seen. ACT 112: Negative or not required by law. Electronically signed by: Adonay Elizabeth M.D. 12/16/2020 3:29 PM
--- NOTE | 2020-12-16 15:37 | Electrocardiogram Report ---
Test Reason : Blood Pressure : / mmHG Vent. Rate : 091 BPM Atrial Rate : 078 BPM P-R Int : 000 ms QRS Dur : 074 ms QT Int : 318 ms P-R-T Axes : 000 -15 188 degrees QTc Int : 391 ms Poor data quality, interpretation may be adversely affected Atrial fibrillation with premature ventricular or aberrantly conducted complexes and with ventricular escape complexes Right bundle branch block Abnormal ECG When compared with ECG of 14-NOV-2020 14:30, Atrial fibrillation has replaced Sinus rhythm Vent. rate has increased BY 33 BPM Right bundle branch block is no longer Present Confirmed by Sergey Johnson ([id number]) on 12/16/2020 3:37:10 PM Referred By: REFERRED SELF Confirmed By:Sergey Johnson
[2020-12-16] MEDS ORDERED: DEXTROSE 50% 50 ML SYRINGE IV PRN (16:42)
[2020-12-16] MEDS ORDERED: CARBOHYDRATES FOR HYPOGLYCEMIA PO PRN (16:42)
[2020-12-16] MEDS ORDERED: ACETAMINOPHEN 325 MG TAB PO PRN (16:42)
[2020-12-16] MEDS ORDERED: GLUCOSE 40% GEL 15 GM TUBE PO PRN (16:42)
[2020-12-16] MEDS ORDERED: GLUCOSE 10 TABS/TUBE PO PRN (16:42)
[2020-12-16] MEDS ORDERED: ONDANSETRON INJ 2 MG/ML 2 ML VIAL IV PRN (16:42)
[2020-12-16] MEDS ORDERED: GLUCAGON FOR INJ 1 MG VIAL SQ PRN (16:42)
[2020-12-16] MEDS: NSS + 20MEQ KCL 20 MEQ/1,000 ML BAG IV SCH (17:26)
[2020-12-16] MEDS: INSULIN ASPART 100 UNITS/ML 3 ML PEN SC SCH ×2 (18:24→21:07)
[2020-12-16 18:52] LABS: BUN Creatinine Ratio 21.4 (10-20); Calcium 8.4 mg/dl (8.5-10.1); Creatinine Clr Calc Pharmacy 17.9 ml/min; Est GFR (African American) 15.6 ml/min; Est GFR (Non-African American) 13.5 ml/min; Potassium 2.2 mmol/L (3.5-5.1)
[2020-12-16] MEDS ORDERED: POTASSIUM CHLORIDE CRTAB 20 MEQ TABCR PO STA (18:55)
[2020-12-16] MEDS: ACETAMINOPHEN 325 MG TAB PO PRN (19:56)
[2020-12-16] MEDS: POTASSIUM CHLORIDE / WTR 10 MEQ/100 ML PLCT IV SCH ×4 (20:03→23:30)
[2020-12-16] MEDS: PIPERACILLIN/TAZOBACTAM 3.375 GM in DEXTROSE 5% 100 ML IV SCH (20:25)
[2020-12-16 23:25] LABS: Calcium 7.9 mg/dl (8.5-10.1); Creatinine Clr Calc Pharmacy 19.2 ml/min; Est GFR (African American) 17.1 ml/min; Est GFR (Non-African American) 14.7 ml/min; Potassium 2.7 mmol/L (3.5-5.1)
[2020-12-16] MEDS ORDERED: CALCIUM CARBONATE 500 MG CHEWABLE TAB PO PRN (23:30)
[2020-12-16] MEDS: ATORVASTATIN 40 MG TAB PO SCH (23:31)
[2020-12-16] MEDS: APIXABAN 5 MG TABLET PO SCH (23:31)
[2020-12-16] MEDS: TAMSULOSIN HCL 0.4 MG CAP PO SCH (23:33)
[2020-12-16] MEDS ORDERED: oxyCODONE HCL IR 5 MG TAB (IMMEDIATE RELEASE) PO STA (23:59)
[2020-12-17] MEDS: POTASSIUM CHLORIDE / WTR 10 MEQ/100 ML PLCT IV SCH ×2 (00:54→01:48)
[2020-12-17] MEDS: NSS + 20MEQ KCL 20 MEQ/1,000 ML BAG IV SCH ×3 (01:48→17:00)
[2020-12-17 06:14] LABS: Basophils # (auto) 0.01 K/uL (0-0.2); Basophils % (auto) 0.2 %; Eosinophils % (auto) 5.7 %; Hematocrit (blood only) 25.1 % (42-52); Hemoglobin 8.7 g/dL (14.0-18.0); Immature Granulocytes # (auto) 0.01 K/uL (0.00-0.02); Immature Granulocytes % (auto) 0.2 %; Lymphocytes # (auto) 1.15 K/uL (1.2-3.4); Mean Corpuscular Hemoglobin 31.5 pg (25-34); Mean Corpuscular Hgb Conc 34.7 g/dL (32-36); Mean Corpuscular Volume 90.9 fL (80-100); Mean Platelet Volume 11.1 fL (7.4-10.4); Monocytes # (auto) 0.67 K/uL (0.11-0.59); Monocytes % (auto) 12.8 %; Neutrophils # (auto) 3.09 K/uL (1.4-6.5); Neutrophils % (auto) 59.1 %; Platelet Count 133 K/uL (130-400); RDW Coefficient of Variation 14.5 % (11.5-14.5); RDW Standard Deviation 47.6 fL (36.4-46.3); Red Blood Count 2.76 M/uL (4.7-6.1); White Blood Count 5.23 K/uL (4.8-10.8)
[2020-12-17 06:52] LABS: Albumin Level 2.4 gm/dl (3.4-5.0); BUN Creatinine Ratio 23.5 (10-20); Calcium 7.8 mg/dl (8.5-10.1); Creatinine Clr Calc Pharmacy 19.9 ml/min; Est GFR (African American) 17.8 ml/min; Est GFR (Non-African American) 15.4 ml/min; Magnesium 2.6 mg/dl (1.8-2.4); Potassium 3.1 mmol/L (3.5-5.1)
[2020-12-17 07:01] LABS: Albumin Globulin Ratio 0.8 (0.9-2); Bilirubin,Total 0.5 mg/dl (0.2-1); Total Protein 5.4 gm/dl (6.4-8.2); Troponin I 0.974 ng/ml (0-0.045)
[2020-12-17] MEDS: TAMSULOSIN HCL 0.4 MG CAP PO SCH ×2 (08:22→20:31)
[2020-12-17] MEDS: SERTRALINE HCL 50 MG TABLET PO SCH (08:22)
[2020-12-17] MEDS: FINASTERIDE 5 MG TAB PO SCH (08:22)
[2020-12-17] MEDS: ISOSORBIDE MONO EXTENDED REL 60 MG TABCR PO SCH (08:22)
[2020-12-17] MEDS: APIXABAN 5 MG TABLET PO SCH ×2 (08:22→20:31)
[2020-12-17] MEDS: INSULIN GLARGINE SOLOSTAR 100 UNITS/ML 3 ML PEN SC SCH (08:23)
[2020-12-17] MEDS: INSULIN ASPART 100 UNITS/ML 3 ML PEN SC SCH ×4 (08:23→20:32)
[2020-12-17] MEDS: OXYBUTYNIN CHLORIDE XL 5 MG TABCR PO SCH (08:23)
[2020-12-17] MEDS: PIPERACILLIN/TAZOBACTAM 3.375 GM in DEXTROSE 5% 100 ML IV SCH (09:00)
[2020-12-17] MEDS: ASPIRIN 81 MG CHEW PO SCH (10:19)
--- NOTE | 2020-12-17 12:15 | Hospitalist Progress Note ---
Date of Service December 17, 2020 Assessment & Plan (1) BRIANNA (acute kidney injury): Plan: Patient does have history of CKD, baseline Cr is 1.0-1.3 Cr is > 4 on admission, likely prerenal Cr down to 3.7 with IV fluids, continue today and tonight Discontinued lisinopril (2) Diarrhea: Plan: loose stools, several times a day for about a week now, causing dehydration, BRIANNA KUB shows no free air, no ileus. CT scan with no IV contrast: colitis in the sigmoid colon follow up on C diff and stool cultures advance diet hold on antibiotics if C diff is positive then treat with Vanco, if negative then start on Lomotil continue IV fluids (3) Hypotension: Plan: resolved with aggressive IV fluids, low BP due to dehydration resume Metoprolol hold lisinopril due to BRIANNA (4) Hypokalemia: Plan: K is up to 3.1, continue KCl in fluids at 125cc/hr check BMP in AM (5) Diabetes: Plan: Patient is Lantus along with mealtime insulin, Lantus 4 units, increase when eating more Start sliding scale (6) Elevated troponin: Plan: due to hypotension, HCOM no further work up Admission and Anticipated Discharge Date Admission Date: December 16, 2020 Subjective patient admitted yesterday for one week of diarrhea, dehydration, acute kidney injury with Cr > 4, baseline is 1.0-1.3 he is feeling better after IV fluids, Cr improved to 3.7, K is stable, making urine via fung will check C diff, stool culture pending reviewed CT results, he has some colitis in sigmoid colon, non specific he denies chest pain, dyspnea, fever/chills, nausea/vomiting tolerating liquids, wants more to eat at this time, will advance diet Review of Systems Review of Systems: All systems reviewed & are unremarkable except as noted in Subjective Constitutional: + fatigue and + weakness; no fever Respiratory: no cough and no dyspnea Cardiovascular: no chest pain and no edema Gastrointestinal: + diarrhea/loose stools; no abdominal pain, no nausea, no vomiting and no constipation Musculoskeletal: + back pain and + muscle weakness Physical Exam Physical Exam: General: obese male, no distress, comfortable sitting in a chair Neck: supple, trachea midline, normal thyroid Lungs: clear to auscultation bilaterally, normal respiratory effort, no accessory muscle use, no distress, dimished sounds in bases Heart: regular S1 and S2, no murmur, peripheral pulses normal, capillary refill normal, no edema Abdomen: soft, NT, ND, + BS, no hepatomegaly, normal to percussion Extremities: normal in appearance, no cyanosis, no petechiae, generalized weakness in legs Neuro: awake, cooperative, moves all extremities, no focal motor deficits, CN II-XII intact, sensation in extremities intact, normal speech Skin: warm, dry, no rash, normal turgor Psych: Awake, alert oriented x 3, euthymic affect Results & Data Results & Data ([facility]) Vital Signs (Past 12 Hours) Vital Signs Temp Pulse Pulse Resp BP BP Pulse Ox 12/17/20 11:13 36.4 C L 66 20 134/71 99 12/17/20 07:14 36.5 C 59 L 20 131/74 98 12/17/20 07:00 20 96 12/17/20 06:29 20 12/17/20 06:00 16 12/17/20 05:40 58 L 12/17/20 05:30 20 12/17/20 05:00 18 12/17/20 04:30 18 12/17/20 04:05 36.8 C 57 L 18 116/53 L 96 12/17/20 03:30 18 12/17/20 02:30 18 12/17/20 02:00 18 12/17/20 01:30 20 12/17/20 01:00 20 12/17/20 00:30 20 Laboratory Results Laboratory Results - last 24 hr 12/16/20 12/16/20 12/16/20 11:16 11:30 11:30 WBC RBC Hgb Hct MCV MCH MCHC RDW Std Deviation RDW Coeff of [place] Plt Count MPV Immature Gran % (Auto) Neut % (Auto) Lymph % (Auto) [place] % (Auto) Eos % (Auto) Baso % (Auto) Neut # (Auto) Lymph # (Auto) [place] # (Auto) Eos # (Auto) Baso # (Auto) Immature Gran # (Auto) Sodium Potassium Chloride Carbon Dioxide Anion Gap BUN Creatinine Est Cr Clr Drug Dosing Est GFR ( Amer) Est GFR (Non-Af Amer) BUN/Creatinine Ratio Glucose POC Glucose Calcium Magnesium Total Bilirubin AST ALT Alkaline Phosphatase Troponin I Total Protein Albumin Globulin Albumin/Globulin Ratio Procalcitonin 0.37 Urine Color Dark Yellow Urine Appearance Clear Urine pH 5.0 Ur Specific [place] 1.023 Urine Protein Negative Urine Glucose (UA) Negative Urine Ketones Trace H Urine Blood Negative Urine Nitrite Negative Urine Bilirubin 1+ H Urine Urobilinogen Negative Ur Leukocyte Esterase Negative Nasal Screen MRSA (PCR) SARS-CoV-2 (PCR) NEGATIVE 12/16/20 12/16/20 12/16/20 16:30 17:53 18:16 WBC RBC Hgb Hct MCV MCH MCHC RDW Std Deviation RDW Coeff of [place] Plt Count MPV Immature Gran % (Auto) Neut % (Auto) Lymph % (Auto) [place] % (Auto) Eos % (Auto) Baso % (Auto) Neut # (Auto) Lymph # (Auto) [place] # (Auto) Eos # (Auto) Baso # (Auto) Immature Gran # (Auto) Sodium 136 Potassium 2.2 L* Chloride 104 Carbon Dioxide 19 L Anion Gap 13.0 H BUN 86 H Creatinine 4.03 H D Est Cr Clr Drug Dosing 17.9 Est GFR ( Amer) 15.6 Est GFR (Non-Af Amer) 13.5 BUN/Creatinine Ratio 21.4 H Glucose 138 H POC Glucose 150 H Calcium 8.4 L Magnesium Total Bilirubin AST ALT Alkaline Phosphatase Troponin I Total Protein Albumin Globulin Albumin/Globulin Ratio Procalcitonin Urine Color Urine Appearance Urine pH Ur Specific [place] Urine Protein Urine Glucose (UA) Urine Ketones Urine Blood Urine Nitrite Urine Bilirubin Urine Urobilinogen Ur Leukocyte Esterase Nasal Screen MRSA (PCR) Negative SARS-CoV-2 (PCR) 12/16/20 12/16/20 12/17/20 20:29 22:57 05:18 WBC 5.23 RBC 2.76 L Hgb 8.7 L Hct 25.1 L MCV 90.9 MCH 31.5 MCHC 34.7 RDW Std Deviation 47.6 H RDW Coeff of [place] 14.5 Plt Count 133 MPV 11.1 H Immature Gran % (Auto) 0.2 Neut % (Auto) 59.1 Lymph % (Auto) 22.0 [place] % (Auto) 12.8 Eos % (Auto) 5.7 Baso % (Auto) 0.2 Neut # (Auto) 3.09 Lymph # (Auto) 1.15 L [place] # (Auto) 0.67 H Eos # (Auto) 0.30 Baso # (Auto) 0.01 Immature Gran # (Auto) 0.01 Sodium 138 Potassium 2.7 L D Chloride 107 Carbon Dioxide 20 L Anion Gap 11.0 BUN 86 H Creatinine 3.75 H Est Cr Clr Drug Dosing 19.2 Est GFR ( Amer) 17.1 Est GFR (Non-Af Amer) 14.7 BUN/Creatinine Ratio 23.0 H Glucose 119 H POC Glucose 98 Calcium 7.9 L Magnesium Total Bilirubin AST ALT Alkaline Phosphatase Troponin I Total Protein Albumin Globulin Albumin/Globulin Ratio Procalcitonin Urine Color Urine Appearance Urine pH Ur Specific [place] Urine Protein Urine Glucose (UA) Urine Ketones Urine Blood Urine Nitrite Urine Bilirubin Urine Urobilinogen Ur Leukocyte Esterase Nasal Screen MRSA (PCR) SARS-CoV-2 (PCR) 12/17/20 12/17/20 12/17/20 05:18 07:31 11:37 WBC RBC Hgb Hct MCV MCH MCHC RDW Std Deviation RDW Coeff of [place] Plt Count MPV Immature Gran % (Auto) Neut % (Auto) Lymph % (Auto) [place] % (Auto) Eos % (Auto) Baso % (Auto) Neut # (Auto) Lymph # (Auto) [place] # (Auto) Eos # (Auto) Baso # (Auto) Immature Gran # (Auto) Sodium 137 Potassium 3.1 L Chloride 109 H Carbon Dioxide 19 L Anion Gap 9.0 BUN 85 H Creatinine 3.62 H Est Cr Clr Drug Dosing 19.9 Est GFR ( Amer) 17.8 Est GFR (Non-Af Amer) 15.4 BUN/Creatinine Ratio 23.5 H Glucose 114 H POC Glucose 113 H 180 H Calcium 7.8 L Magnesium 2.6 H Total Bilirubin 0.5 AST 33 ALT 16 Alkaline Phosphatase 63 Troponin I 0.974 H* Total Protein 5.4 L D Albumin 2.4 L Globulin 3.0 Albumin/Globulin Ratio 0.8 L Procalcitonin Urine Color Urine Appearance Urine pH Ur Specific [place] Urine Protein Urine Glucose (UA) Urine Ketones Urine Blood Urine Nitrite Urine Bilirubin Urine Urobilinogen Ur Leukocyte Esterase Nasal Screen MRSA (PCR) SARS-CoV-2 (PCR) Medications Administered Current Inpatient Medications Acetaminophen (Acetaminophen 325 Mg Tab) 650 mg PO Q4H PRN PRN Reason: Pain or Fever Stop: 01/15/21 16:41 Last Admin: 12/16/20 19:56 Dose: 650 mg Documented by: Acetaminophen (Acetaminophen 325 Mg Tab) 650 mg PO Q4H PRN PRN Reason: [place]/fever/pain Stop: 01/15/21 16:41 Apixaban (Apixaban 5 Mg Tablet) 5 mg PO BID NAA Stop: 01/15/21 20:59 Last Admin: 12/17/20 08:22 Dose: 5 mg Documented by: Aspirin (Aspirin 81 Mg Chew) 81 mg PO DAILY NAA Stop: 01/16/21 08:59 Last Admin: 12/17/20 10:19 Dose: 81 mg Documented by: Atorvastatin Calcium (Atorvastatin 40 Mg Tab) 40 mg PO HS NAA Stop: 01/15/21 20:59 Last Admin: 12/16/20 23:31 Dose: 40 mg Documented by: Calcium Carbonate (Calcium Carbonate 500 Mg Chewable Tab) 500 mg PO Q6H PRN PRN Reason: Indigestion Stop: 01/15/21 23:29 Last Admin: 12/16/20 23:52 Dose: 500 mg Documented by: Dextrose (Dextrose 50% 50 Ml Syringe) 25 - 50 ml IV UD PRN; Protocol PRN Reason: Hypoglycemia Protocol Stop: 01/15/21 16:41 Finasteride (Finasteride 5 Mg Tab) 5 mg PO QAM NAA Stop: 01/16/21 08:59 Last Admin: 12/17/20 08:22 Dose: 5 mg Documented by: Glucagon (Glucagon For Inj 1 Mg Vial) 1 mg SQ UD PRN; Protocol PRN Reason: Hypoglycemia Protocol Stop: 01/15/21 16:41 Glucose (Glucose 10 Tabs/Tube) 4 - 8 tabs PO UD PRN; Protocol PRN Reason: Hypoglycemia Protocol Stop: 01/15/21 16:41 Glucose (Glucose 40% Gel 15 Gm Tube) 15 - 30 gm PO UD PRN; Protocol PRN Reason: Hypoglycemia Protocol Stop: 01/15/21 16:41 Potassium Chloride/Sodium Chloride (Normal Saline W/20 Meq Kcl) 20 meq in 1,000 mls @ 125 mls/hr IV .Q8H NAA Stop: 01/15/21 16:41 Last Admin: 12/17/20 10:18 Dose: 125 mls/hr Documented by: Insulin Aspart (Insulin Aspart 100 Units/Ml 3 Ml Pen) 0 units SC ACHS NAA Stop: 01/15/21 16:41 Last Admin: 12/17/20 12:06 Dose: 5 units Documented by: Insulin Glargine (Insulin Glargine Solostar 100 Units/Ml 3 Ml Pen) 4 units SC DAILY NAA Stop: 01/16/21 08:59 Last Admin: 12/17/20 08:23 Dose: 4 units Documented by: Isosorbide Mononitrate (Isosorbide [place] Extended Rel 60 Mg Tabcr) 60 mg PO QAM NAA Stop: 01/16/21 08:59 Last Admin: 12/17/20 08:22 Dose: 60 mg Documented by: Miscellaneous (Carbohydrates For Hypoglycemia ) 15 - 30 gm PO UD PRN PRN Reason: Hypoglycemia Protocol Stop: 01/15/21 16:41 Ondansetron HCl (Ondansetron Inj 2 Mg/Ml 2 Ml Vial) 4 mg IV Q6H PRN PRN Reason: Nausea Stop: 01/15/21 16:41 Last Admin: 12/16/20 19:56 Dose: 4 mg Documented by: Oxybutynin Chloride (Oxybutynin Chloride Xl 5 Mg Tabcr) 10 mg PO DAILY NAA Stop: 01/16/21 08:59 Last Admin: 12/17/20 08:23 Dose: 10 mg Documented by: Sertraline HCl (Sertraline Hcl 50 Mg Tablet) 25 mg PO DAILY NAA Stop: 01/16/21 08:59 Last Admin: 12/17/20 08:22 Dose: 25 mg Documented by: Tamsulosin HCl (Tamsulosin Hcl 0.4 Mg Cap) 0.4 mg PO BID NAA Stop: 01/15/21 20:59 Last Admin: 12/17/20 08:22 Dose: 0.4 mg Documented by: PG Care Time/CCT Total # of Minutes Spent Total Time Spent with Patient: Total time spent is greater than 50% in coordination of care (as documented) at patient's floor/unit and/or counseling patient: Coding Level of Care Code 97502 Subseq Hosp Care Lvl 3 Diagnoses Diarrhea R19.7 Hypotension I95.9 Hypokalemia E87.6 Diabetes E11.9 BRIANNA (acute kidney injury) N17.9 Elevated troponin R77.8
--- NOTE | 2020-12-17 13:37 | Cardiology Consultation ---
Date of Consultation December 17, 2020 Assessment & Plan (1) Elevated troponin: (2) Hypertrophic obstructive cardiomyopathy (HOCM): (3) Sinus node dysfunction: (4) Status post placement of cardiac pacemaker: (5) Left ventricular outflow tract obstruction: (6) Hypertension: ASSESSMENT/PLAN: 1. Elevated troponin: He did not present with acute coronary syndrome and has not provided any history suggestive of ischemic symptoms. Troponin was incidentally checked and elevated. His troponin has been elevated with prior hospitalizations as well throughout October. Ischemic evaluation is not necessary at this time. Troponin elevation is likely due to underlying hypertrophic cardiomyopathy with history of intracavitary/LVOT obstruction, which would worsen in the setting of hypovolemia. 2. Hypertrophic cardiomyopathy: Has had evidence of LVOT obstruction reported in the past and most recent echo in October of 2020 demonstrated intracavitary LV gradient as well. By history, he presented with hypokalemia, which would exacerbate dynamic obstruction. Asymptomatic in this regard. He had been on metoprolol up to 200 mg daily as recently as November, as noted on his discharge summary. For some reason, beta-nati is no longer listed on his medication list. Unless obvious contraindication, would recommend resuming his prior dose of metoprolol. 3. LVOT obstruction: As above. Hypokalemia would exacerbate obstruction and could lead to elevated troponin levels and even symptoms. Fortunately, no ischemic symptoms. 4. Sinus node dysfunction s/p dual chamber pacemaker: Followed by Dr. Prieto, his primary music producer. Dr. Prieto was planning on arranging interrogation while hospitalized. 5. Hypertension: History of hypertension although blood pressure well controlled currently. Would recommend resuming beta-nati as noted above. With history of LVOT or dynamic LV obstruction, would avoid ANG-inhibitor unless necessary. ANG-inhibitor currently on hold due to acute renal failure. 6. Acute renal failure: As per primary hospitalist service. Renal function improving with hydration. 7. Diarrhea: As per primary service. Fortunately, no diarrhea at today. 8. Disposition: Plan of care communicated with Dr. Muñoz of the primary hospitalist service. If there are any other questions or concerns tomorrow, please do not hesitate to call the on-call music producer. Thank you for allowing me to participate in the care of your patient. Please call for any other questions or concerns. Sincerely, Guerrero Argueta M.D. History of Present Illness Reason for Consultation: "elevated troponin" Requesting Physician: Dr. Russell Attending Physician: Adonay Muñoz DO History of Present Illness Mr. Larkin is a pleasant 75-year-old gentleman with a history significant for sinus node dysfunction s/p dual chamber pacemaker, asymmetric left ventricular hypertrophy with history of LVOT obstruction, CKD, insulin-dependent diabetes, DVT on anticoagulation therapy, anemia, diabetic retinopathy, hypertriglyceridemia, TIA/stroke, and spinal stenosis. He also has reported memory impairment. His primary music producer is Dr. Prieto. Cardiac history notable for LVOT obstruction noted on 09/08/2015 echo. He was noted to have asymmetric hypertrophy of the anteroseptum with what appeared to be chordal systolic anterior motion with LVOT obstruction with peak velocity of 2.9 m/sec and peak gradient of 33 mmHg. LV systolic function at that time was hyperdynamic. Repeat imaging did not demonstrate LVOT obstruction on 05/12/2020, and LV systolic function was no longer hyperdynamic. He underwent pacemaker implantation on 06/23/2016 for sinus node dysfunction. Syncope had prompted investigation with a loop recorder. He was admitted on 12/16/2020 from [facility] due to elevated creatinine. He had been experiencing diarrhea for 1-1.5 weeks with abdominal cramping. He admits that he had not been keeping up with hydration or oral intake in general. Labs were done as an outpatient and demonstrated acute renal failure. In the emergency department he received IV fluids and potassium supplementation was given. For the past 4 weeks he has been experiencing leg weakness and chronically has tingling/numbness of his feet/toes. In the emergency department he had an ECG which had significant artifact and therefore cannot completely discern the underlying rhythm. His troponin was elevated on presentation at 0.103 and has trended upward to 0.974. He had troponin levels also checked in October of 2020 and they remained elevated with every evaluation, starting on 10/01/[address] through 10/18/2020 without specific trend. He denies any chest discomfort, shortness of breath, syncope, near-syncope, palpitations. He is able to walk with a walker in the hallways prior to presentation without exertional symptoms suggestive of ischemic heart disease. While here with IV fluids, he feels much better, near baseline. He no longer has abdominal discomfort. He does have chronic lower extremity edema. He admits that the edema is worse on his left lower extremity, where he had a prior DVT. He is rather sedentary and he does not typically elevate his feet. Review of systems: As above. Review of systems otherwise negative/unremarkable. Family history: Mother and father both had CAD and diabetes. Social history: He denies tobacco, alcohol, or drug abuse. He is a since November of 2019. No children. He lives alone, but currently at [facility] for rehab. Has brother, Miguel. 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 He was unaccompanied in his hospital room. Allergies Allergy/AdvReac Type Severity Reaction Status Date / Time No Known Allergies Allergy ` Verified 12/16/20 13:47 Home Medications Medication Instructions Recorded Confirmed Type blood sugar diagnostic (OneTouch #100 ea 06/29/20 09/14/20 Rx Ultra Blue Test Strip) acetaminophen 325 mg tablet 650 mg PO Q4H PRN #30 tab 10/09/20 12/16/20 Rx cyanocobalamin (vitamin B-12) 500 1,000 mcg PO QAM #60 tab 10/09/20 12/16/20 Rx mcg tablet finasteride 5 mg tablet (Proscar) 5 mg PO QAM #30 tab 10/09/20 12/16/20 Rx allopurinol 300 mg tablet 300 mg PO QAM 10/19/20 12/16/20 History aspirin 81 mg chewable tablet 81 mg PO QAM 10/19/20 12/16/20 History calcium carbonate 600 mg-vitamin 1 tab PO QAM tab 10/19/20 12/16/20 History D3 1,000 unit-vitamin K2 90 mcg tab atorvastatin 40 mg tablet 40 mg PO HS #30 tab 10/29/20 12/16/20 Rx docusate sodium 100 mg capsule 100 mg PO Q12H PRN 11/14/20 12/16/20 History nystatin 100,000 unit/gram topical 1 applic TOPICAL DAILY 11/14/20 12/16/20 History cream oxybutynin chloride 10 mg 10 mg PO QAM 11/14/20 12/16/20 History tablet,extended release 24 hr sertraline 25 mg tablet 25 mg PO QAM 11/14/20 12/16/20 History insulin aspart U-100 100 unit/mL 3 unit SC AC #3 ml 11/20/20 12/16/20 Rx (3 mL) subcutaneous pen (Novolog Flexpen U-100 Insulin aspart) apixaban 5 mg tablet (Eliquis) 5 mg PO Q12H 12/16/20 12/16/20 History cholecalciferol (vitamin D3) 25 1,000 units PO QAM 12/16/20 12/16/20 History mcg (1,000 unit) capsule insulin aspart U-100 100 unit/mL 1 sliding scale dose SUBCUT 12/16/20 12/16/20 History subcutaneous solution (Novolog USEASDIRECTD U-100 Insulin aspart) insulin glargine 100 unit/mL (3 8 unit SC QAM 12/16/20 12/16/20 History mL) subcutaneous pen (Lantus Solostar U-100 Insulin) magnesium oxide 400 mg (241.3 mg 400 mg PO QAM 12/16/20 12/16/20 History magnesium) tablet [id number] 1 tab PO PM 12/16/20 12/16/20 History tablet (Multivitamin 50 Plus) polyethylene glycol 3350 17 gram 17 g PO Q12H PRN 12/16/20 12/16/20 History oral powder packet (Miralax) tamsulosin 0.4 mg capsule 0.4 mg PO Q12H 12/16/20 12/16/20 History Patient History Medical History Anemia of chronic disease BPH with obstruction/lower urinary tract symptoms CKD (chronic kidney disease) Deep vein thrombosis (DVT) of left lower extremity Diabetes Elevated troponin Hypertension Hypertrophic obstructive cardiomyopathy (HOCM) Low back pain Mobitz (type) II atrioventricular block Proteinuria Sinus node dysfunction Skin carcinoma Spinal stenosis Subclavian vein thromboembolism, acute Syncope and collapse Surgical History H/O arthroscopy of knee History of cataract surgery Status post placement of cardiac pacemaker Family History Mother Ovarian cancer Diabetes Father Diabetes Unknown Coronary heart disease Denies family history of Prostate cancer Myocardial infarction Breast cancer Colorectal cancer Social History Smoking Status: Never smoker Second Hand Exposure: No; Do You Dip or Chew Tobacco: No; Hx Alcohol Use: No Hx Substance Use: No Preferred Language: Spanish Communication Ability: Effective Bending Shed Worker Required: No Beliefs That Will Affect Care: None marital status: / Current Living Situation: [facility] Current Living Situation Comment: home with brother, was just discharged from [facility] earlier today current occupational status: retired How many Children do You have: 0 Other Information That Helps Us Care for You: No Feels Safe at Home: Yes Safety Concerns: Feels Safe At This Time Childhood Exposure to Second-Hand Smoke: No caffeine: Yes Dental Care, Regularly: Yes Physical Activity Frequency: 1-2 Times per Week Seatbelt Use: always Sunscreen Use: No Assistive Devices: Cane and Walker Physical Exam Physical Exam: Gen.: No acute distress. Alert. HEENT: Anicteric sclera. Neck: No JVD. No bruits. Normal carotid upstrokes bilaterally. Cardiac: PMI was nondisplaced. No ventricular heave. Regular. Distant S1-S2. No audible murmurs, rubs, or gallops. Pulmonary: Clear to auscultation bilaterally without wheezes, rales, or rhonchi. Abdomen: Soft, nontender, nondistended, with normoactive bowel sounds. No bruits noted. Extremities: 2+ radial pulses bilaterally. 2+ posterior tibialis pulses bilaterally. Bilateral lower extremity edema 3+Left >2+Right. No cyanosis. Psychiatric: Affect appears appropriate. Results & Data ([facility]) Vital Signs (Past 12 Hours) Vital Signs Temp Pulse Pulse Resp BP BP Pulse Ox 12/17/20 11:13 36.4 C L 66 20 134/71 99 12/17/20 07:14 36.5 C 59 L 20 131/74 98 12/17/20 07:00 20 96 12/17/20 06:29 20 12/17/20 06:00 16 12/17/20 05:40 58 L 12/17/20 05:30 20 12/17/20 05:00 18 12/17/20 04:30 18 12/17/20 04:05 36.8 C 57 L 18 116/53 L 96 12/17/20 03:30 18 12/17/20 02:30 18 12/17/20 02:00 18 Intake & Output 12/15/20 12/16/20 12/17/20 12/18/20 06:59 06:59 06:59 06:59 Intake Total 3925 / 3925 1000 / 1000 Output Total 750 / 750 Balance 3175 / 3175 1000 / 1000 Weight 220 lb 0.341 oz Laboratory Results Laboratory Results - last 24 hr 12/16/20 12/16/20 12/16/20 16:30 17:53 18:16 WBC RBC Hgb Hct MCV MCH MCHC RDW Std Deviation RDW Coeff of Nona Plt Count MPV Immature Gran % (Auto) Neut % (Auto) Lymph % (Auto) [place] % (Auto) Eos % (Auto) Baso % (Auto) Neut # (Auto) Lymph # (Auto) [place] # (Auto) Eos # (Auto) Baso # (Auto) Immature Gran # (Auto) Sodium 136 Potassium 2.2 L* Chloride 104 Carbon Dioxide 19 L Anion Gap 13.0 H BUN 86 H Creatinine 4.03 H D Est Cr Clr Drug Dosing 17.9 Est GFR ( Amer) 15.6 Est GFR (Non-Af Amer) 13.5 BUN/Creatinine Ratio 21.4 H Glucose 138 H POC Glucose 150 H Calcium 8.4 L Magnesium Total Bilirubin AST ALT Alkaline Phosphatase Troponin I Total Protein Albumin Globulin Albumin/Globulin Ratio Nasal Screen MRSA (PCR) Negative 12/16/20 12/16/20 12/17/20 20:29 22:57 05:18 WBC 5.23 RBC 2.76 L Hgb 8.7 L Hct 25.1 L MCV 90.9 MCH 31.5 MCHC 34.7 RDW Std Deviation 47.6 H RDW Coeff of Nona 14.5 Plt Count 133 MPV 11.1 H Immature Gran % (Auto) 0.2 Neut % (Auto) 59.1 Lymph % (Auto) 22.0 [place] % (Auto) 12.8 Eos % (Auto) 5.7 Baso % (Auto) 0.2 Neut # (Auto) 3.09 Lymph # (Auto) 1.15 L [place] # (Auto) 0.67 H Eos # (Auto) 0.30 Baso # (Auto) 0.01 Immature Gran # (Auto) 0.01 Sodium 138 Potassium 2.7 L D Chloride 107 Carbon Dioxide 20 L Anion Gap 11.0 BUN 86 H Creatinine 3.75 H Est Cr Clr Drug Dosing 19.2 Est GFR ( Amer) 17.1 Est GFR (Non-Af Amer) 14.7 BUN/Creatinine Ratio 23.0 H Glucose 119 H POC Glucose 98 Calcium 7.9 L Magnesium Total Bilirubin AST ALT Alkaline Phosphatase Troponin I Total Protein Albumin Globulin Albumin/Globulin Ratio Nasal Screen MRSA (PCR) 12/17/20 12/17/20 12/17/20 05:18 07:31 11:37 WBC RBC Hgb Hct MCV MCH MCHC RDW Std Deviation RDW Coeff of Nona Plt Count MPV Immature Gran % (Auto) Neut % (Auto) Lymph % (Auto) [place] % (Auto) Eos % (Auto) Baso % (Auto) Neut # (Auto) Lymph # (Auto) [place] # (Auto) Eos # (Auto) Baso # (Auto) Immature Gran # (Auto) Sodium 137 Potassium 3.1 L Chloride 109 H Carbon Dioxide 19 L Anion Gap 9.0 BUN 85 H Creatinine 3.62 H Est Cr Clr Drug Dosing 19.9 Est GFR ( Amer) 17.8 Est GFR (Non-Af Amer) 15.4 BUN/Creatinine Ratio 23.5 H Glucose 114 H POC Glucose 113 H 180 H Calcium 7.8 L Magnesium 2.6 H Total Bilirubin 0.5 AST 33 ALT 16 Alkaline Phosphatase 63 Troponin I 0.974 H* Total Protein 5.4 L D Albumin 2.4 L Globulin 3.0 Albumin/Globulin Ratio 0.8 L Nasal Screen MRSA (PCR) Diagnostic Findings Telemetry personally reviewed: Predominantly sinus rhythm. Occasional atrial sensed and ventricular paced rhythm. Approximately 1 minute of ventricular pacing with tachycardia. ECGs personally reviewed: ECG 12/16/2020 at 11:04 a.m.: Significant artifact. Possible sinus rhythm with PAC. RBBB. ECG 12/16/2020 at 11:57 p.m.: Sinus rhythm first-degree AV block 65 beats per minute. RBBB. ECG 12/17/2020 at 12:05 a.m.: Sinus rhythm first-degree AV block 64 beats per minute. RBBB. Echo 10/18/2020: Normal LV systolic function and wall motion. Moderate to severe LVH. EF 65-70%. On personal review, there was mild LV intracavitary obstruction noted with spectral Doppler. CT abdomen/pelvis 12/16/2020: Sigmoid bowel thickening may represent infectious/inflammatory colitis. Medications Administered Current Inpatient Medications Acetaminophen (Acetaminophen 325 Mg Tab) 650 mg PO Q4H PRN PRN Reason: Pain or Fever Stop: 01/15/21 16:41 Last Admin: 12/16/20 19:56 Dose: 650 mg Documented by: Acetaminophen (Acetaminophen 325 Mg Tab) 650 mg PO Q4H PRN PRN Reason: [place]/fever/pain Stop: 01/15/21 16:41 Apixaban (Apixaban 5 Mg Tablet) 5 mg PO BID NAA Stop: 01/15/21 20:59 Last Admin: 12/17/20 08:22 Dose: 5 mg Documented by: Aspirin (Aspirin 81 Mg Chew) 81 mg PO DAILY NAA Stop: 01/16/21 08:59 Last Admin: 12/17/20 10:19 Dose: 81 mg Documented by: Atorvastatin Calcium (Atorvastatin 40 Mg Tab) 40 mg PO HS NAA Stop: 01/15/21 20:59 Last Admin: 12/16/20 23:31 Dose: 40 mg Documented by: Calcium Carbonate (Calcium Carbonate 500 Mg Chewable Tab) 500 mg PO Q6H PRN PRN Reason: Indigestion Stop: 01/15/21 23:29 Last Admin: 12/16/20 23:52 Dose: 500 mg Documented by: Dextrose (Dextrose 50% 50 Ml Syringe) 25 - 50 ml IV UD PRN; Protocol PRN Reason: Hypoglycemia Protocol Stop: 01/15/21 16:41 Finasteride (Finasteride 5 Mg Tab) 5 mg PO QAM NAA Stop: 01/16/21 08:59 Last Admin: 12/17/20 08:22 Dose: 5 mg Documented by: Glucagon (Glucagon For Inj 1 Mg Vial) 1 mg SQ UD PRN; Protocol PRN Reason: Hypoglycemia Protocol Stop: 01/15/21 16:41 Glucose (Glucose 10 Tabs/Tube) 4 - 8 tabs PO UD PRN; Protocol PRN Reason: Hypoglycemia Protocol Stop: 01/15/21 16:41 Glucose (Glucose 40% Gel 15 Gm Tube) 15 - 30 gm PO UD PRN; Protocol PRN Reason: Hypoglycemia Protocol Stop: 01/15/21 16:41 Potassium Chloride/Sodium Chloride (Normal Saline W/20 Meq Kcl) 20 meq in 1,000 mls @ 125 mls/hr IV .Q8H NAA Stop: 01/15/21 16:41 Last Admin: 12/17/20 10:18 Dose: 125 mls/hr Documented by: Insulin Aspart (Insulin Aspart 100 Units/Ml 3 Ml Pen) 0 units SC ACHS NAA Stop: 01/15/21 16:41 Last Admin: 12/17/20 12:06 Dose: 5 units Documented by: Insulin Glargine (Insulin Glargine Solostar 100 Units/Ml 3 Ml Pen) 4 units SC DAILY NAA Stop: 01/16/21 08:59 Last Admin: 12/17/20 08:23 Dose: 4 units Documented by: Isosorbide Mononitrate (Isosorbide [place] Extended Rel 60 Mg Tabcr) 60 mg PO QAM NAA Stop: 01/16/21 08:59 Last Admin: 12/17/20 08:22 Dose: 60 mg Documented by: Miscellaneous (Carbohydrates For Hypoglycemia ) 15 - 30 gm PO UD PRN PRN Reason: Hypoglycemia Protocol Stop: 01/15/21 16:41 Ondansetron HCl (Ondansetron Inj 2 Mg/Ml 2 Ml Vial) 4 mg IV Q6H PRN PRN Reason: Nausea Stop: 01/15/21 16:41 Last Admin: 12/16/20 19:56 Dose: 4 mg Documented by: Oxybutynin Chloride (Oxybutynin Chloride Xl 5 Mg Tabcr) 10 mg PO DAILY NAA Stop: 01/16/21 08:59 Last Admin: 12/17/20 08:23 Dose: 10 mg Documented by: Sertraline HCl (Sertraline Hcl 50 Mg Tablet) 25 mg PO DAILY NAA Stop: 01/16/21 08:59 Last Admin: 12/17/20 08:22 Dose: 25 mg Documented by: Tamsulosin HCl (Tamsulosin Hcl 0.4 Mg Cap) 0.4 mg PO BID NAA Stop: 01/15/21 20:59 Last Admin: 12/17/20 08:22 Dose: 0.4 mg Documented by: PG Care Time/CCT Total # of Minutes Spent Total Time Spent with Patient: Total time spent is greater than 50% in coordination of care (as documented) at patient's floor/unit and/or counseling patient: Coding Level of Care Code 64606 Initial Inpt Care Lvl 3 Diagnoses Elevated troponin R77.8 Hypertrophic obstructive cardiomyopathy (HOCM) I42.1 Sinus node dysfunction I49.5 Status post placement of cardiac pacemaker Z95.0 Left ventricular outflow tract obstruction Q24.8 Hypertension I10
[2020-12-17] MEDS: ATORVASTATIN 40 MG TAB PO SCH (20:31)
[2020-12-18] MEDS: NSS + 20MEQ KCL 20 MEQ/1,000 ML BAG IV SCH ×3 (01:24→15:14)
--- NOTE | 2020-12-18 06:12 | Electrocardiogram Report ---
Test Reason : Blood Pressure : / mmHG Vent. Rate : 065 BPM Atrial Rate : 064 BPM P-R Int : 240 ms QRS Dur : 160 ms QT Int : 476 ms P-R-T Axes : 000 210 191 degrees QTc Int : 495 ms Poor data quality, interpretation may be adversely affected Sinus rhythm with 1st degree A-V block Right bundle branch block Abnormal ECG When compared with ECG of 16-DEC-2020 11:04, prior ECG had baseline artifact Confirmed by Cheko Argueta ([id number]) on 12/18/2020 6:12:32 AM Referred By: REFERRED SELF Confirmed By:Cheko Argueta
--- NOTE | 2020-12-18 06:13 | Electrocardiogram Report ---
Test Reason : Blood Pressure : / mmHG Vent. Rate : 064 BPM Atrial Rate : 064 BPM P-R Int : 236 ms QRS Dur : 162 ms QT Int : 476 ms P-R-T Axes : 000 203 183 degrees QTc Int : 491 ms Sinus rhythm with 1st degree A-V block Right bundle branch block T wave abnormality, consider lateral ischemia Abnormal ECG When compared with ECG of 16-DEC-2020 23:57, No significant change Confirmed by Cheko Argueta ([id number]) on 12/18/2020 6:13:17 AM Referred By: REFERRED SELF Confirmed By:Cheko Argueta
[2020-12-18] MEDS: INSULIN ASPART 100 UNITS/ML 3 ML PEN SC SCH ×4 (08:39→20:10)
[2020-12-18] MEDS: SERTRALINE HCL 50 MG TABLET PO SCH (08:40)
[2020-12-18] MEDS: APIXABAN 5 MG TABLET PO SCH ×2 (08:40→19:58)
[2020-12-18] MEDS: FINASTERIDE 5 MG TAB PO SCH (08:40)
[2020-12-18] MEDS: OXYBUTYNIN CHLORIDE XL 5 MG TABCR PO SCH (08:40)
[2020-12-18] MEDS: ISOSORBIDE MONO EXTENDED REL 60 MG TABCR PO SCH (08:40)
[2020-12-18] MEDS: TAMSULOSIN HCL 0.4 MG CAP PO SCH ×2 (08:40→19:58)
[2020-12-18] MEDS: INSULIN GLARGINE SOLOSTAR 100 UNITS/ML 3 ML PEN SC SCH (08:41)
[2020-12-18] MEDS: ASPIRIN 81 MG CHEW PO SCH (08:43)
[2020-12-18] MEDS ORDERED: METOPROLOL SUCC 50MG EXT REL TAB PO SCH (09:00)
--- NOTE | 2020-12-18 09:52 | Electrocardiogram Report ---
Test Reason : Blood Pressure : / mmHG Vent. Rate : 079 BPM Atrial Rate : 076 BPM P-R Int : 302 ms QRS Dur : 144 ms QT Int : 434 ms P-R-T Axes : 000 -29 015 degrees QTc Int : 497 ms Poor data quality, interpretation may be adversely affected Atrial-paced rhythm with prolonged AV conduction Right bundle branch block Septal infarct , age undetermined Abnormal ECG When compared with ECG of 17-DEC-2020 00:05, Electronic atrial pacemaker has replaced Sinus rhythm Septal infarct is now Present Confirmed by Sergey Johnson ([id number]) on 12/18/2020 9:52:32 AM Referred By: REFERRED SELF Confirmed By:Sergey Johnson
--- NOTE | 2020-12-18 09:55 | Electrocardiogram Report ---
Test Reason : Blood Pressure : / mmHG Vent. Rate : 070 BPM Atrial Rate : 070 BPM P-R Int : 000 ms QRS Dur : 098 ms QT Int : 448 ms P-R-T Axes : 000 -15 008 degrees QTc Int : 483 ms Normal sinus rhythm with 1st degree A-V block Low voltage QRS Incomplete right bundle branch block Nonspecific ST and T wave abnormality Prolonged QT Abnormal ECG When compared with ECG of 17-DEC-2020 00:05, Atrial-paced rhythm no longer present Confirmed by Sergey Johnson ([id number]) on 12/18/2020 9:55:00 AM Referred By: REFERRED SELF Confirmed By:Sergey Johnson
--- NOTE | 2020-12-18 10:13 | Electrocardiogram Report ---
Test Reason : Blood Pressure : / mmHG Vent. Rate : 062 BPM Atrial Rate : 062 BPM P-R Int : 000 ms QRS Dur : 160 ms QT Int : 484 ms P-R-T Axes : -25 -14 007 degrees QTc Int : 491 ms Poor data quality, interpretation may be adversely affected Sinus rhythm with 1st degree A-V block Atrial paced complex Right bundle branch block Abnormal ECG When compared with ECG of 17-DEC-2020 17:52, (unconfirmed) Atrial pacing now present Confirmed by Sergey Johnson ([id number]) on 12/18/2020 10:12:40 AM Referred By: REFERRED SELF Confirmed By:Sergey Johnson
[2020-12-18 11:19] LABS: BUN Creatinine Ratio 27.6 (10-20); Calcium 7.9 mg/dl (8.5-10.1); Creatinine Clr Calc Pharmacy 28.3 ml/min; Est GFR (African American) 26.3 ml/min; Est GFR (Non-African American) 22.7 ml/min; Potassium 3.3 mmol/L (3.5-5.1)
[2020-12-18] MEDS ORDERED: DIPHENOXYLATE/ATROPINE 2.5/0.025MG TAB PO PRN (13:38)
--- NOTE | 2020-12-18 13:43 | Hospitalist Progress Note ---
Date of Service December 18, 2020 Assessment & Plan (1) BRIANNA (acute kidney injury): Plan: Patient does have history of CKD, baseline Cr is 1.0-1.3 Cr was > 4 on admission, likely prerenal Cr down to 2.7 with IV fluids, cut fluids to 75cc/hr and stop when bag done Discontinued lisinopril BMP in AM K low at 3.3, oral replacement ordered (2) Diarrhea: Plan: loose stools, several times a day for about a week now, causing dehydration, BRIANNA KUB shows no free air, no ileus. CT scan with no IV contrast: colitis in the sigmoid colon follow up on C diff and stool cultures - could not run because stool soft/formed, making C diff unlikely advance diet hold on antibiotics Lomotil PRN if he has more diarrhea (3) Hypotension: Plan: resolved with aggressive IV fluids, low BP due to dehydration BP now elevated received Toprol this morning but will stop with bradycardia holding lisinopril due to BRIANNA (4) Hypokalemia: Plan: K is up to 3.3, continue KCl in fluids add 20mEq BID replacement check BMP in AM (5) Diabetes: Plan: Patient is Lantus along with mealtime insulin, Lantus 4 units, increase when eating more Start sliding scale (6) Elevated troponin: Plan: due to hypotension, HCOM no further work up (7) Bradycardia: Plan: unclear why his pacer is not keeping HR > 60 interrogation ordered stop metoprolol for time being Admission and Anticipated Discharge Date Admission Date: December 16, 2020 Subjective Cr down to 2.7, making urine via fung, cut fluids to 75cc/hr then stop when bag done moving bowels but soft, formed, no diarrhea, can use Lomotil PRN having bradycardia on the monitor, unclear why this is happening as he has pacemaker requested interrogation from cardiology no chest pain, no dyspnea, no fever/chills, no vomiting, eating a little better today profoundly weak, max assist with two people to get him in a chair Review of Systems Review of Systems: All systems reviewed & are unremarkable except as noted in Subjective Respiratory: no cough and no dyspnea Cardiovascular: + edema; no chest pain Gastrointestinal: no abdominal pain, no nausea, no vomiting, no constipation and no diarrhea/loose stools Musculoskeletal: + muscle weakness (both legs very weak) Physical Exam Physical Exam: General: obese male, no distress, comfortable sitting in a chair Neck: supple, trachea midline, normal thyroid Lungs: clear to auscultation bilaterally, normal respiratory effort, no accessory muscle use, no distress, diminished sounds in bases Heart: regular S1 and S2, no murmur, peripheral pulses normal, capillary refill normal, +2 pitting edema in legs Abdomen: soft, NT, ND, + BS, no hepatomegaly, normal to percussion Extremities: normal in appearance, no cyanosis, no petechiae, generalized weakness in legs Neuro: awake, cooperative, moves all extremities, no focal motor deficits, CN II-XII intact, sensation in extremities intact, normal speech Skin: warm, dry, no rash, normal turgor Psych: Awake, alert oriented x 3, euthymic affect Results & Data Results & Data ([facility]) Vital Signs (Past 12 Hours) Vital Signs Temp Pulse Pulse Resp BP Pulse Ox 12/18/20 11:45 36.4 C L 55 L 18 152/67 H 99 12/18/20 08:00 56 L 12/18/20 07:29 37.1 C 63 18 147/67 H 97 12/18/20 03:25 36.9 C 68 125/66 97 Laboratory Results Laboratory Results - last 24 hr 12/18/20 12/18/20 12/18/20 07:28 10:35 11:35 Sodium 139 Potassium 3.3 L Chloride 112 H Carbon Dioxide 19 L Anion Gap 8.0 BUN 72 H Creatinine 2.62 H D Est Cr Clr Drug Dosing 28.3 Est GFR ( Amer) 26.3 Est GFR (Non-Af Amer) 22.7 BUN/Creatinine Ratio 27.6 H Glucose 162 H POC Glucose 111 H 159 H Calcium 7.9 L 12/18/20 12/18/20 16:19 20:04 Sodium Potassium Chloride Carbon Dioxide Anion Gap BUN Creatinine Est Cr Clr Drug Dosing Est GFR ( Amer) Est GFR (Non-Af Amer) BUN/Creatinine Ratio Glucose POC Glucose 122 H 169 H Calcium Medications Administered Current Inpatient Medications Acetaminophen (Acetaminophen 325 Mg Tab) 650 mg PO Q4H PRN PRN Reason: Pain or Fever Stop: 01/15/21 16:41 Last Admin: 12/16/20 19:56 Dose: 650 mg Documented by: Acetaminophen (Acetaminophen 325 Mg Tab) 650 mg PO Q4H PRN PRN Reason: [place]/fever/pain Stop: 01/15/21 16:41 Apixaban (Apixaban 5 Mg Tablet) 5 mg PO BID NAA Stop: 01/15/21 20:59 Last Admin: 12/18/20 19:58 Dose: 5 mg Documented by: Aspirin (Aspirin 81 Mg Chew) 81 mg PO DAILY ANA Stop: 01/16/21 08:59 Last Admin: 12/18/20 08:43 Dose: 81 mg Documented by: Atorvastatin Calcium (Atorvastatin 40 Mg Tab) 40 mg PO HS NAA Stop: 01/15/21 20:59 Last Admin: 12/18/20 19:58 Dose: 40 mg Documented by: Calcium Carbonate (Calcium Carbonate 500 Mg Chewable Tab) 500 mg PO Q6H PRN PRN Reason: Indigestion Stop: 01/15/21 23:29 Last Admin: 12/16/20 23:52 Dose: 500 mg Documented by: Dextrose (Dextrose 50% 50 Ml Syringe) 25 - 50 ml IV UD PRN; Protocol PRN Reason: Hypoglycemia Protocol Stop: 01/15/21 16:41 Diphenoxylate HCl/Atropine (Diphenoxylate/Atropine 2.5/0.025mg Tab) 1 tab PO Q8 PRN PRN Reason: Diarrhea Stop: 01/17/21 13:37 Finasteride (Finasteride 5 Mg Tab) 5 mg PO QAM [facility] Stop: 01/16/21 08:59 Last Admin: 12/18/20 08:40 Dose: 5 mg Documented by: Glucagon (Glucagon For Inj 1 Mg Vial) 1 mg SQ UD PRN; Protocol PRN Reason: Hypoglycemia Protocol Stop: 01/15/21 16:41 Glucose (Glucose 10 Tabs/Tube) 4 - 8 tabs PO UD PRN; Protocol PRN Reason: Hypoglycemia Protocol Stop: 01/15/21 16:41 Glucose (Glucose 40% Gel 15 Gm Tube) 15 - 30 gm PO UD PRN; Protocol PRN Reason: Hypoglycemia Protocol Stop: 01/15/21 16:41 Insulin Aspart (Insulin Aspart 100 Units/Ml 3 Ml Pen) 0 units SC ACHS NAA Stop: 01/15/21 16:41 Last Admin: 12/18/20 20:10 Dose: 1 units Documented by: Insulin Glargine (Insulin Glargine Solostar 100 Units/Ml 3 Ml Pen) 4 units SC DAILY NAA Stop: 01/16/21 08:59 Last Admin: 12/18/20 08:41 Dose: 4 units Documented by: Isosorbide Mononitrate (Isosorbide [place] Extended Rel 60 Mg Tabcr) 60 mg PO QAM NAA Stop: 01/16/21 08:59 Last Admin: 12/18/20 08:40 Dose: 60 mg Documented by: Metoprolol Succinate (Metoprolol Succ 50mg Ext Rel Tab) 200 mg PO QAM NAA Stop: 01/17/21 08:59 Last Admin: 12/18/20 08:40 Dose: 200 mg Documented by: Miscellaneous (Carbohydrates For Hypoglycemia ) 15 - 30 gm PO UD PRN PRN Reason: Hypoglycemia Protocol Stop: 01/15/21 16:41 Ondansetron HCl (Ondansetron Inj 2 Mg/Ml 2 Ml Vial) 4 mg IV Q6H PRN PRN Reason: Nausea Stop: 01/15/21 16:41 Last Admin: 12/16/20 19:56 Dose: 4 mg Documented by: Oxybutynin Chloride (Oxybutynin Chloride Xl 5 Mg Tabcr) 10 mg PO DAILY NAA Stop: 01/16/21 08:59 Last Admin: 12/18/20 08:40 Dose: 10 mg Documented by: Potassium Chloride (Potassium Chloride Crtab 20 Meq Tabcr) 20 meq PO BID NAA Stop: 01/17/21 20:59 Last Admin: 12/18/20 19:57 Dose: 20 meq Documented by: Sertraline HCl (Sertraline Hcl 50 Mg Tablet) 25 mg PO DAILY NAA Stop: 01/16/21 08:59 Last Admin: 12/18/20 08:40 Dose: 25 mg Documented by: Tamsulosin HCl (Tamsulosin Hcl 0.4 Mg Cap) 0.4 mg PO BID NAA Stop: 01/15/21 20:59 Last Admin: 12/18/20 19:58 Dose: 0.4 mg Documented by: PG Care Time/CCT Total # of Minutes Spent Total Time Spent with Patient: Total time spent is greater than 50% in coordination of care (as documented) at patient's floor/unit and/or counseling patient: Coding Level of Care Code 59212 Subseq Hosp Care Lvl 3 Diagnoses BRIANNA (acute kidney injury) N17.9 Diarrhea R19.7 Hypotension I95.9 Hypokalemia E87.6 Diabetes E11.9 Elevated troponin R77.8 Bradycardia R00.1
[2020-12-18] MEDS ORDERED: Nursing to Pharmacy Communication SCH (14:15)
[2020-12-18] MEDS: POTASSIUM CHLORIDE CRTAB 20 MEQ TABCR PO SCH (19:57)
[2020-12-18] MEDS: ATORVASTATIN 40 MG TAB PO SCH (19:58)
[2020-12-19 07:34] LABS: BUN Creatinine Ratio 35.8 (10-20); Calcium 7.9 mg/dl (8.5-10.1); Creatinine Clr Calc Pharmacy 42.9 ml/min; Est GFR (African American) 43.5 ml/min; Est GFR (Non-African American) 37.5 ml/min; Potassium 3.9 mmol/L (3.5-5.1)
[2020-12-19] MEDS: TAMSULOSIN HCL 0.4 MG CAP PO SCH ×2 (07:52→20:05)
[2020-12-19] MEDS: ISOSORBIDE MONO EXTENDED REL 60 MG TABCR PO SCH (07:52)
[2020-12-19] MEDS: OXYBUTYNIN CHLORIDE XL 5 MG TABCR PO SCH (07:53)
[2020-12-19] MEDS: SERTRALINE HCL 50 MG TABLET PO SCH (07:53)
[2020-12-19] MEDS: APIXABAN 5 MG TABLET PO SCH ×2 (07:53→20:04)
[2020-12-19] MEDS: FINASTERIDE 5 MG TAB PO SCH (07:53)
[2020-12-19] MEDS: POTASSIUM CHLORIDE CRTAB 20 MEQ TABCR PO SCH ×2 (07:54→20:03)
[2020-12-19] MEDS: ASPIRIN 81 MG CHEW PO SCH (07:56)
[2020-12-19] MEDS: INSULIN ASPART 100 UNITS/ML 3 ML PEN SC SCH ×4 (08:48→21:54)
[2020-12-19] MEDS: INSULIN GLARGINE SOLOSTAR 100 UNITS/ML 3 ML PEN SC SCH (08:49)
[2020-12-19] MEDS: SODIUM BICARBONATE 650 MG TAB PO SCH ×2 (09:44→20:03)
--- NOTE | 2020-12-19 14:23 | Hospitalist Progress Note ---
Date of Service December 19, 2020 Assessment & Plan (1) BRIANNA (acute kidney injury): Plan: Patient does have history of CKD, baseline Cr is 1.0-1.3 Cr was > 4 on admission, likely prerenal Cr down to 1.7 with IV fluids, fluids stopped on 12/18 held lisinopril but can now resume for BP control BMP in AM K up to 3.9 (2) Metabolic acidosis: Plan: HCO3 is 19 combination of diarrhea and acute kidney injury add NaHCO3 BID and follow BMP (3) Diarrhea: Plan: loose stools, several times a day for about a week now, causing dehydration, BRIANNA KUB shows no free air, no ileus. CT scan with no IV contrast: colitis in the sigmoid colon follow up on C diff and stool cultures - could not run because stool soft/formed, making C diff unlikely no diarrhea for the 3 days he has been here, seems like it is self limiting could be malabsorption of something he was eating at [facility]? advance diet hold on antibiotics Lomotil PRN if he has more diarrhea (4) Hypotension: Plan: resolved with aggressive IV fluids, low BP due to dehydration BP now elevated received Toprol this morning but will stop with bradycardia resume Lisinopril (5) Hypokalemia: Plan: K is up to 3.9 stop KCl replacement (6) Diabetes: Plan: Patient is Lantus along with mealtime insulin, Lantus 4 units, increase when eating more Start sliding scale (7) Elevated troponin: Plan: due to hypotension, HCOM no further work up (8) Bradycardia: Plan: unclear why his pacer is not keeping HR > 60 interrogation ordered, will d/w cardiology stop metoprolol for time being Admission and Anticipated Discharge Date Admission Date: December 16, 2020 Subjective patient says his diarrhea is resolved, states he had it for a week so this is an improvement no nausea/vomiting, no abdominal pain breathing well Cr down to 1.7, making plenty of urine, remove fung reviewed pacer interrogation will move patient to medical floor Review of Systems Review of Systems: All systems reviewed & are unremarkable except as noted in Subjective Constitutional: no fever Respiratory: no cough and no dyspnea Cardiovascular: no chest pain Gastrointestinal: no abdominal pain, no nausea, no vomiting, no constipation and no diarrhea/loose stools Musculoskeletal: + muscle weakness (very weak in the legs) Physical Exam Physical Exam: General: obese male, no distress, comfortable sitting in a chair Neck: supple, trachea midline, normal thyroid Lungs: clear to auscultation bilaterally, normal respiratory effort, no accessory muscle use, no distress, diminished sounds in bases Heart: regular S1 and S2, no murmur, peripheral pulses normal, capillary refill normal, +2 pitting edema in legs Abdomen: soft, NT, ND, + BS, no hepatomegaly, normal to percussion Extremities: normal in appearance, no cyanosis, no petechiae, generalized weakness in legs (cannot transfer without max assistance) Neuro: awake, cooperative, moves all extremities, no focal motor deficits, CN II-XII intact, sensation in extremities intact, normal speech Skin: warm, dry, no rash, normal turgor Psych: Awake, alert oriented x 3, euthymic affect Results & Data Results & Data ([facility]) Vital Signs (Past 12 Hours) Vital Signs Temp Pulse Pulse Resp BP Pulse Ox 12/19/20 11:24 36.8 C 51 L 16 149/76 H 100 12/19/20 08:00 52 L 12/19/20 07:19 37.5 C 55 L 17 134/76 96 12/19/20 03:53 36.9 C 58 L 18 138/72 97 Laboratory Results Laboratory Results - last 24 hr 12/18/20 12/18/20 12/19/20 16:19 20:04 06:19 Sodium 140 Potassium 3.9 D Chloride 114 H Carbon Dioxide 19 L Anion Gap 7.0 BUN 62 H Creatinine 1.73 H D Est Cr Clr Drug Dosing 42.9 Est GFR ( Amer) 43.5 Est GFR (Non-Af Amer) 37.5 BUN/Creatinine Ratio 35.8 H Glucose 132 H POC Glucose 122 H 169 H Calcium 7.9 L 12/19/20 12/19/20 07:03 11:10 Sodium Potassium Chloride Carbon Dioxide Anion Gap BUN Creatinine Est Cr Clr Drug Dosing Est GFR ( Amer) Est GFR (Non-Af Amer) BUN/Creatinine Ratio Glucose POC Glucose 204 H 195 H Calcium Medications Administered Current Inpatient Medications Acetaminophen (Acetaminophen 325 Mg Tab) 650 mg PO Q4H PRN PRN Reason: Pain or Fever Stop: 01/15/21 16:41 Last Admin: 12/16/20 19:56 Dose: 650 mg Documented by: Acetaminophen (Acetaminophen 325 Mg Tab) 650 mg PO Q4H PRN PRN Reason: [place]/fever/pain Stop: 01/15/21 16:41 Apixaban (Apixaban 5 Mg Tablet) 5 mg PO BID NAA Stop: 01/15/21 20:59 Last Admin: 12/19/20 07:53 Dose: 5 mg Documented by: Aspirin (Aspirin 81 Mg Chew) 81 mg PO DAILY NAA Stop: 01/16/21 08:59 Last Admin: 12/19/20 07:56 Dose: 81 mg Documented by: Atorvastatin Calcium (Atorvastatin 40 Mg Tab) 40 mg PO HS NAA Stop: 01/15/21 20:59 Last Admin: 12/18/20 19:58 Dose: 40 mg Documented by: Calcium Carbonate (Calcium Carbonate 500 Mg Chewable Tab) 500 mg PO Q6H PRN PRN Reason: Indigestion Stop: 01/15/21 23:29 Last Admin: 12/16/20 23:52 Dose: 500 mg Documented by: Dextrose (Dextrose 50% 50 Ml Syringe) 25 - 50 ml IV UD PRN; Protocol PRN Reason: Hypoglycemia Protocol Stop: 01/15/21 16:41 Diphenoxylate HCl/Atropine (Diphenoxylate/Atropine 2.5/0.025mg Tab) 1 tab PO Q8 PRN PRN Reason: Diarrhea Stop: 01/17/21 13:37 Finasteride (Finasteride 5 Mg Tab) 5 mg PO QAM NAA Stop: 01/16/21 08:59 Last Admin: 12/19/20 07:53 Dose: 5 mg Documented by: Glucagon (Glucagon For Inj 1 Mg Vial) 1 mg SQ UD PRN; Protocol PRN Reason: Hypoglycemia Protocol Stop: 01/15/21 16:41 Glucose (Glucose 10 Tabs/Tube) 4 - 8 tabs PO UD PRN; Protocol PRN Reason: Hypoglycemia Protocol Stop: 01/15/21 16:41 Glucose (Glucose 40% Gel 15 Gm Tube) 15 - 30 gm PO UD PRN; Protocol PRN Reason: Hypoglycemia Protocol Stop: 01/15/21 16:41 Insulin Aspart (Insulin Aspart 100 Units/Ml 3 Ml Pen) 0 units SC ACHS NAA Stop: 01/15/21 16:41 Last Admin: 12/19/20 12:12 Dose: 7 units Documented by: Insulin Glargine (Insulin Glargine Solostar 100 Units/Ml 3 Ml Pen) 4 units SC DAILY NAA Stop: 01/16/21 08:59 Last Admin: 12/19/20 08:49 Dose: 4 units Documented by: Isosorbide Mononitrate (Isosorbide [place] Extended Rel 60 Mg Tabcr) 60 mg PO QAM NAA Stop: 01/16/21 08:59 Last Admin: 12/19/20 07:52 Dose: 60 mg Documented by: Metoprolol Succinate (Metoprolol Succ 50mg Ext Rel Tab) 200 mg PO QAM NAA Stop: 01/17/21 08:59 Last Admin: 12/18/20 08:40 Dose: 200 mg Documented by: Miscellaneous (Carbohydrates For Hypoglycemia ) 15 - 30 gm PO UD PRN PRN Reason: Hypoglycemia Protocol Stop: 01/15/21 16:41 Ondansetron HCl (Ondansetron Inj 2 Mg/Ml 2 Ml Vial) 4 mg IV Q6H PRN PRN Reason: Nausea Stop: 01/15/21 16:41 Last Admin: 12/16/20 19:56 Dose: 4 mg Documented by: Oxybutynin Chloride (Oxybutynin Chloride Xl 5 Mg Tabcr) 10 mg PO DAILY NAA Stop: 01/16/21 08:59 Last Admin: 12/19/20 07:53 Dose: 10 mg Documented by: Potassium Chloride (Potassium Chloride Crtab 20 Meq Tabcr) 20 meq PO BID [facility] Stop: 01/17/21 20:59 Last Admin: 12/19/20 07:54 Dose: 20 meq Documented by: Sertraline HCl (Sertraline Hcl 50 Mg Tablet) 25 mg PO DAILY NAA Stop: 01/16/21 08:59 Last Admin: 12/19/20 07:53 Dose: 25 mg Documented by: Sodium Bicarbonate (Sodium Bicarbonate 650 Mg Tab) 650 mg PO BID [facility] Stop: 01/18/21 08:59 Last Admin: 12/19/20 09:44 Dose: 650 mg Documented by: Tamsulosin HCl (Tamsulosin Hcl 0.4 Mg Cap) 0.4 mg PO BID [facility] Stop: 01/15/21 20:59 Last Admin: 12/19/20 07:52 Dose: 0.4 mg Documented by: PG Care Time/CCT Total # of Minutes Spent Total Time Spent with Patient: Total time spent is greater than 50% in coordinat ion of care (as documented) at patient's floor/unit and/or counseling patient: Coding Level of Care Code 90260 Subseq Hosp Care Lvl 3 Diagnoses BRIANNA (acute kidney injury) N17.9 Diarrhea R19.7 Hypotension I95.9 Hypokalemia E87.6 Diabetes E11.9 Elevated troponin R77.8 Bradycardia R00.1 Metabolic acidosis E87.2
[2020-12-19] MEDS: ATORVASTATIN 40 MG TAB PO SCH (20:04)
[2020-12-20 07:18] LABS: BUN Creatinine Ratio 37.2 (10-20); Calcium 8.2 mg/dl (8.5-10.1); Creatinine Clr Calc Pharmacy 57.5 ml/min; Est GFR (Non-African American) 53.5 ml/min; Potassium 3.9 mmol/L (3.5-5.1)
[2020-12-20] MEDS: APIXABAN 5 MG TABLET PO SCH ×2 (08:27→20:32)
[2020-12-20] MEDS: SERTRALINE HCL 50 MG TABLET PO SCH (08:27)
[2020-12-20] MEDS: OXYBUTYNIN CHLORIDE XL 5 MG TABCR PO SCH (08:28)
[2020-12-20] MEDS: POTASSIUM CHLORIDE CRTAB 20 MEQ TABCR PO SCH ×2 (08:28→20:32)
[2020-12-20] MEDS: SODIUM BICARBONATE 650 MG TAB PO SCH ×2 (08:28→20:32)
[2020-12-20] MEDS: ISOSORBIDE MONO EXTENDED REL 60 MG TABCR PO SCH (08:28)
[2020-12-20] MEDS: TAMSULOSIN HCL 0.4 MG CAP PO SCH ×2 (08:28→20:32)
[2020-12-20] MEDS: ASPIRIN 81 MG CHEW PO SCH (08:28)
[2020-12-20] MEDS: FINASTERIDE 5 MG TAB PO SCH (08:28)
[2020-12-20] MEDS: INSULIN GLARGINE SOLOSTAR 100 UNITS/ML 3 ML PEN SC SCH (08:30)
[2020-12-20] MEDS: INSULIN ASPART 100 UNITS/ML 3 ML PEN SC SCH ×4 (08:31→20:33)
--- NOTE | 2020-12-20 15:14 | Hospitalist Progress Note ---
Date of Service December 20, 2020 Assessment & Plan (1) BRIANNA (acute kidney injury): Plan: Patient does have history of CKD, baseline Cr is 1.0-1.3 Cr was > 4 on admission, likely prerenal Cr down to 1.2, fluids stopped on 12/18 held lisinopril but can now resume for BP control K up to 3.9 stable for discharge to [facility], CM can arrange for tomorrow if possible (2) Metabolic acidosis: Plan: HCO3 is still 19 combination of diarrhea and acute kidney injury continue NaHCO3 BID and follow BMP (3) Diarrhea: Plan: loose stools, several times a day for about a week prior to admission, causing dehydration, BRIANNA KUB showed no free air, no ileus. CT scan with no IV contrast: colitis in the sigmoid colon follow up on C diff and stool cultures - could not test because stool soft/formed, making C diff unlikely no diarrhea for the 4 days he has been here, seems like it is self limiting could be malabsorption of something he was eating at [facility]? advance diet Lomotil PRN if he has more diarrhea stable for discharge (4) Hypotension: Plan: resolved with aggressive IV fluids, low BP due to dehydration BP now elevated stopped Metoprolol due to bradycardia resume Lisinopril (5) Hypokalemia: Plan: K is up to 3.9 stop KCl replacement (6) Diabetes: Plan: Patient is Lantus along with mealtime insulin, Lantus 4 units, increase when eating more Start sliding scale (7) Elevated troponin: Plan: due to hypotension, HCOM no further work up (8) Bradycardia: Plan: unclear why his pacer is not keeping HR > 60 interrogation ordered, will d/w cardiology (Dr. Prieto) stop metoprolol for time being Admission and Anticipated Discharge Date Admission Date: December 16, 2020 Subjective patient sitting up in a chair, sleeping, very comfortable still very weak eating better, no diarrhea Cr down to 1.2, HCO3 is 19 patient is stable to go back to [facility], spoke with CM, will try to get back tomorrow Review of Systems Review of Systems: All systems reviewed & are unremarkable except as noted in Subjective Musculoskeletal: + muscle weakness (very weak legs) Physical Exam Physical Exam: General: obese male, no distress, comfortable sitting in a chair Neck: supple, trachea midline, normal thyroid Lungs: clear to auscultation bilaterally, normal respiratory effort, no accessory muscle use, no distress, diminished sounds in bases Heart: regular S1 and S2, no murmur, peripheral pulses normal, capillary refill normal, +2 pitting edema in legs Abdomen: soft, NT, ND, + BS, no hepatomegaly, normal to percussion Extremities: normal in appearance, no cyanosis, no petechiae, generalized weakness in legs (cannot transfer without max assistance) Neuro: awake, cooperative, moves all extremities, no focal motor deficits, CN II-XII intact, sensation in extremities intact, normal speech Skin: warm, dry, no rash, normal turgor Psych: Awake, alert oriented x 3, euthymic affect Results & Data Results & Data ([facility]) Vital Signs (Past 12 Hours) Vital Signs Temp Pulse Resp BP Pulse Ox 12/20/20 07:30 36.9 C 63 20 161/76 H 98 Laboratory Results Laboratory Results - last 24 hr 12/19/20 12/19/20 12/20/20 17:53 20:26 06:20 Sodium 141 Potassium 3.9 Chloride 114 H Carbon Dioxide 19 L Anion Gap 8.0 BUN 48 H Creatinine 1.29 D Est Cr Clr Drug Dosing 57.5 Est GFR ( Amer) 62.0 Est GFR (Non-Af Amer) 53.5 BUN/Creatinine Ratio 37.2 H Glucose 118 H POC Glucose 147 H 202 H Calcium 8.2 L 12/20/20 12/20/20 08:20 12:14 Sodium Potassium Chloride Carbon Dioxide Anion Gap BUN Creatinine Est Cr Clr Drug Dosing Est GFR ( Amer) Est GFR (Non-Af Amer) BUN/Creatinine Ratio Glucose POC Glucose 140 H 221 H Calcium Medications Administered Current Inpatient Medications Acetaminophen (Acetaminophen 325 Mg Tab) 650 mg PO Q4H PRN PRN Reason: Pain or Fever Stop: 01/15/21 16:41 Last Admin: 12/16/20 19:56 Dose: 650 mg Documented by: Acetaminophen (Acetaminophen 325 Mg Tab) 650 mg PO Q4H PRN PRN Reason: [place]/fever/pain Stop: 01/15/21 16:41 Apixaban (Apixaban 5 Mg Tablet) 5 mg PO BID NAA Stop: 01/15/21 20:59 Last Admin: 12/20/20 08:27 Dose: 5 mg Documented by: Aspirin (Aspirin 81 Mg Chew) 81 mg PO DAILY [facility] Stop: 01/16/21 08:59 Last Admin: 12/20/20 08:28 Dose: 81 mg Documented by: Atorvastatin Calcium (Atorvastatin 40 Mg Tab) 40 mg PO HS [facility] Stop: 01/15/21 20:59 Last Admin: 12/19/20 20:04 Dose: 40 mg Documented by: Calcium Carbonate (Calcium Carbonate 500 Mg Chewable Tab) 500 mg PO Q6H PRN PRN Reason: Indigestion Stop: 01/15/21 23:29 Last Admin: 12/16/20 23:52 Dose: 500 mg Documented by: Dextrose (Dextrose 50% 50 Ml Syringe) 25 - 50 ml IV UD PRN; Protocol PRN Reason: Hypoglycemia Protocol Stop: 01/15/21 16:41 Diphenoxylate HCl/Atropine (Diphenoxylate/Atropine 2.5/0.025mg Tab) 1 tab PO Q8 PRN PRN Reason: Diarrhea Stop: 01/17/21 13:37 Finasteride (Finasteride 5 Mg Tab) 5 mg PO QAM NAA Stop: 01/16/21 08:59 Last Admin: 12/20/20 08:28 Dose: 5 mg Documented by: Glucagon (Glucagon For Inj 1 Mg Vial) 1 mg SQ UD PRN; Protocol PRN Reason: Hypoglycemia Protocol Stop: 01/15/21 16:41 Glucose (Glucose 10 Tabs/Tube) 4 - 8 tabs PO UD PRN; Protocol PRN Reason: Hypoglycemia Protocol Stop: 01/15/21 16:41 Glucose (Glucose 40% Gel 15 Gm Tube) 15 - 30 gm PO UD PRN; Protocol PRN Reason: Hypoglycemia Protocol Stop: 01/15/21 16:41 Insulin Aspart (Insulin Aspart 100 Units/Ml 3 Ml Pen) 0 units SC ACHS [facility] Stop: 01/15/21 16:41 Last Admin: 12/20/20 12:44 Dose: 6 units Documented by: Insulin Glargine (Insulin Glargine Solostar 100 Units/Ml 3 Ml Pen) 4 units SC DAILY [facility] Stop: 01/16/21 08:59 Last Admin: 12/20/20 08:30 Dose: 4 units Documented by: Isosorbide Mononitrate (Isosorbide [place] Extended Rel 60 Mg Tabcr) 60 mg PO QAM NAA Stop: 01/16/21 08:59 Last Admin: 12/20/20 08:28 Dose: 60 mg Documented by: Metoprolol Succinate (Metoprolol Succ 50mg Ext Rel Tab) 200 mg PO QAM NAA Stop: 01/17/21 08:59 Last Admin: 12/18/20 08:40 Dose: 200 mg Documented by: Miscellaneous (Carbohydrates For Hypoglycemia ) 15 - 30 gm PO UD PRN PRN Reason: Hypoglycemia Protocol Stop: 01/15/21 16:41 Ondansetron HCl (Ondansetron Inj 2 Mg/Ml 2 Ml Vial) 4 mg IV Q6H PRN PRN Reason: Nausea Stop: 01/15/21 16:41 Last Admin: 12/16/20 19:56 Dose: 4 mg Documented by: Oxybutynin Chloride (Oxybutynin Chloride Xl 5 Mg Tabcr) 10 mg PO DAILY NAA Stop: 01/16/21 08:59 Last Admin: 12/20/20 08:28 Dose: 10 mg Documented by: Potassium Chloride (Potassium Chloride Crtab 20 Meq Tabcr) 20 meq PO BID NAA Stop: 01/17/21 20:59 Last Admin: 12/20/20 08:28 Dose: 20 meq Documented by: Sertraline HCl (Sertraline Hcl 50 Mg Tablet) 25 mg PO DAILY NAA Stop: 01/16/21 08:59 Last Admin: 12/20/20 08:27 Dose: 25 mg Documented by: Sodium Bicarbonate (Sodium Bicarbonate 650 Mg Tab) 650 mg PO BID NAA Stop: 01/18/21 08:59 Last Admin: 12/20/20 08:28 Dose: 650 mg Documented by: Tamsulosin HCl (Tamsulosin Hcl 0.4 Mg Cap) 0.4 mg PO BID NAA Stop: 01/15/21 20:59 Last Admin: 12/20/20 08:28 Dose: 0.4 mg Documented by: PG Care Time/CCT Total # of Minutes Spent Total Time Spent with Patient: Total time spent is greater than 50% in coordination of care (as documented) at patient's floor/unit and/or counseling patient: Coding Level of Care Code 97687 Subseq Hosp Care Lvl 2 Diagnoses BRIANNA (acute kidney injury) N17.9 Metabolic acidosis E87.2 Diarrhea R19.7 Hypotension I95.9 Hypokalemia E87.6 Diabetes E11.9 Elevated troponin R77.8 Bradycardia R00.1
[2020-12-20] MEDS: ATORVASTATIN 40 MG TAB PO SCH (20:32)
[2020-12-21 07:08] LABS: BUN Creatinine Ratio 30.4 (10-20); Calcium 8.6 mg/dl (8.5-10.1); Creatinine Clr Calc Pharmacy 62.3 ml/min; Est GFR (African American) 68.4 ml/min; Potassium 4.1 mmol/L (3.5-5.1)
[2020-12-21] MEDS: FINASTERIDE 5 MG TAB PO SCH (08:52)
[2020-12-21] MEDS: TAMSULOSIN HCL 0.4 MG CAP PO SCH (08:52)
[2020-12-21] MEDS: ISOSORBIDE MONO EXTENDED REL 60 MG TABCR PO SCH (08:52)
[2020-12-21] MEDS: SERTRALINE HCL 50 MG TABLET PO SCH (08:52)
[2020-12-21] MEDS: SODIUM BICARBONATE 650 MG TAB PO SCH (08:52)
[2020-12-21] MEDS: OXYBUTYNIN CHLORIDE XL 5 MG TABCR PO SCH (08:52)
[2020-12-21] MEDS: APIXABAN 5 MG TABLET PO SCH (08:52)
[2020-12-21] MEDS: INSULIN GLARGINE SOLOSTAR 100 UNITS/ML 3 ML PEN SC SCH (08:53)
[2020-12-21] MEDS: INSULIN ASPART 100 UNITS/ML 3 ML PEN SC SCH ×2 (08:54→13:07)
[2020-12-21] MEDS: ASPIRIN 81 MG CHEW PO SCH (08:57)
[2020-12-21] MEDS: POTASSIUM CHLORIDE CRTAB 20 MEQ TABCR PO SCH (08:57)
--- NOTE | 2020-12-21 08:57 | Hospitalist Progress Note ---
Date of Service December 21, 2020 Assessment & Plan Admission and Anticipated Discharge Date Admission Date: December 16, 2020 Results & Data Results & Data ([facility]) Vital Signs (Past 12 Hours) Vital Signs Temp Pulse Resp BP Pulse Ox 12/21/20 07:59 36.5 C 63 18 186/79 H 97 12/20/20 22:20 37.5 C 57 L 18 149/67 H 96 Laboratory Results 12/21/20 12/21/20 12/20/20 Range/Units 08:22 06:15 20:30 Sodium 143 (136-145) mmol/L Potassium 4.1 (3.5-5.1) mmol/L Chloride 115 H (98-107) mmol/L Carbon Dioxide 20 L (21-32) mmol/L Anion Gap 8.0 (3-11) BUN 36 H (7-18) mg/dl Creatinine 1.19 (0.6-1.4) mg/dl Est Cr Clr Drug Dosing 62.3 ml/min Est GFR ( Amer) 68.4 ml/min Est GFR (Non-Af Amer) 59.0 ml/min BUN/Creatinine Ratio 30.4 H (10-20) Glucose 116 H (70-99) mg/dl POC Glucose 139 H 110 H (70-99) mg/dl Calcium 8.6 (8.5-10.1) mg/dl 12/20/20 12/20/20 12/20/20 Range/Units 17:24 17:05 17:05 Sodium (136-145) mmol/L Potassium (3.5-5.1) mmol/L Chloride (98-107) mmol/L Carbon Dioxide (21-32) mmol/L Anion Gap (3-11) BUN (7-18) mg/dl Creatinine (0.6-1.4) mg/dl Est Cr Clr Drug Dosing ml/min Est GFR ( Amer) ml/min Est GFR (Non-Af Amer) ml/min BUN/Creatinine Ratio (10-20) Glucose 122 H (70-99) mg/dl POC Glucose 139 H 203 H (70-99) mg/dl Calcium (8.5-10.1) mg/dl 12/20/20 12/20/20 Range/Units 17:04 12:14 Sodium (136-145) mmol/L Potassium (3.5-5.1) mmol/L Chloride (98-107) mmol/L Carbon Dioxide (21-32) mmol/L Anion Gap (3-11) BUN (7-18) mg/dl Creatinine (0.6-1.4) mg/dl Est Cr Clr Drug Dosing ml/min Est GFR ( Amer) ml/min Est GFR (Non-Af Amer) ml/min BUN/Creatinine Ratio (10-20) Glucose (70-99) mg/dl POC Glucose 343 H* 221 H (70-99) mg/dl Calcium (8.5-10.1) mg/dl PG Care Time/CCT Total # of Minutes Spent Total Time Spent with Patient: Total time spent is greater than 50% in coordination of care (as documented) at patient's floor/unit and/or counseling patient: Coding
[2020-12-21] MEDS ORDERED: lisinopril 20 MG TAB PO SCH (10:30)
[2020-12-21 10:42] VITALS: BP 189/75; PULSE 56; TEMP 99; O2SAT 98
[2020-12-21] MEDS ORDERED: bisacodyL 5 MG TABEC PO ONE (10:57)
[2020-12-21] MEDS ORDERED: METOPROLOL SUCC 50MG EXT REL TAB PO SCH (11:00)
[2020-12-21] MEDS: ACETAMINOPHEN 325 MG TAB PO PRN (11:19)
--- NOTE | 2020-12-21 13:14 | Discharge Summary ---
Date of Service December 21, 2020 Admission HPI Per Admitting Provider This is a 75-year-old male with past medical history of CKD, HCM, previous TIA, sinus node dysfunction status post pacemaker presents today with hypertension. Patient is a resident of [facility] and is unfortunately a limited historian. Patient has been at [facility] secondary to ongoing weakness, has been getting rehab. The patient tells me he had some lab work today and everybody "got excited "and sent him to the hospital. He is only complaining of some irritation in his rectal area. On further questioning, the patient tells me has been having 5-10 diarrhea bowel movements for over a week. Has had no nausea vomiting although he is noted some diminished appetite. Per ER documentation, patient had documented blood pressure in the 80s at the senior care. His blood pressure here is now 135/59. Lab work from the senior care is not available but I was told by the ER physician that the potassium was down to 2 and his creatinine was up to 4. Repeat laboratory work was ordered and I did reviewed here which is consistent with these lab values. Admission Exam Per Admitting Provider Constitutional: cooperative; no acute distress ENMT: MMM Neck: trachea midline, no thyromegaly Respiratory: normal respiratory effort Auscultation: lungs clear to auscultation bilaterally; no crackles, no rales, no rhonchi and no wheezes Cardiovascular: Rate/Rhythm: regular rate and regular rhythm Heart Sounds: normal S1 and normal S2 Gastrointestinal (Abdomen): Inspection/Auscultation: abdomen normal to inspection Percussion/Palpation: + abdomen tender (mild diffuse) and abdomen soft; no guarding, abdomen not rigid and no hepatosplenomegaly Skin: no rashes, warm and dry Principal Diagnosis Metabolic Acidosis, Dehydration, Acute Kidney Injury, Hypokalemia Discharge Exam alert, oriented sitting up in chair, no acute distress eyes anicteric, SUSAN trachea without deviation respiratory - no accessory muscle use, no distress/tachypnea, no w/c/r, on room air abd; +BS, soft, non-tender ext/msk/neuro: generalized weakness (at baseline), decreased strength b/l (chronic, spinal stenosis), decreased DTR b/l LE. no calf edema/tenderness to palpation. no focal deficits appreciated above baseline Psych: alert, oriented to place (not time at times, knows he is in hospital, pleasantly re-oriented) : no fung Discharge Data Allergies Allergy/AdvReac Type Severity Reaction Status Date / Time No Known Allergies Allergy ` Verified 12/16/20 13:47 Consultations 12/16/20 11:32 ED Decision to Admit Stat 12/16/20 16:42 Consult Cardiology Routine Ordered Studies Chest X-Ray 12/16/20 11:01 XR chest 1V portable CLINICAL HISTORY: SEPSIS COMPARISON STUDY: November 14, 2020 FINDINGS: No pneumothorax. No pleural effusion. Lung volumes are decreased with crowded lung markings. No large infiltrates or consolidative lesions are seen. Interval development of questionable lucency under the right hemidiaphragm which most likely represent gas within superimposed loop of bowel however please note that free intra-abdominal gas sometimes might have similar appearance. Cardiomediastinal silhouette is within normal limits in size. No significant pulmonary vascular congestion.. Osseous structures: Degenerative changes of the spine. IMPRESSION: 1. No large infiltrates or consolidative lesions. Low lung volumes associated with crowded lung markings. 2. Questionable lucency under right hemidiaphragm most likely due to gas in interposed loop of bowel however please note that sometimes free intra-abdominal gas might have similar appearance. As a precaution further evaluation with left decubitus KUB is recommended. Report will be sent to emergency Department. ACT 112: Negative or not required by law. The above report was generated using voice recognition software. It may contain grammatical, syntax or spelling errors. Electronically signed by: Kalpana Whitfield DO 12/16/2020 11:39 AM KUB X-Ray 12/16/20 11:47 KUB HISTORY: Generalized abdominal pain. ? free air COMPARISON: None. FINDINGS: Mildly dilated gas-filled loops of colon. This results in mild elevation the right hemidiaphragm. However, no pneumoperitoneum. No pneumatosis. No renal calculi. No ureteral calculi. There is a left-sided dual-chamber pacemaker. Bibasilar linear densities consistent with subsegmental atelectasis. IMPRESSION: 1. No pneumoperitoneum. 2. Mildly dilated gas-filled colon. This suggests an ileus. ACT 112: Negative or not required by law. Electronically signed by: Fahad Leon M.D. 12/16/2020 1:02 PM Abdomen/Pelvis CT 12/16/20 12:57 CT abd pelvis wo con CLINICAL INDICATION: MN ^CTR RM A12 ^sepsis. TECHNIQUE: Helical axial images of the abdomen and pelvis were obtained and displayed at 5 and 1 mm intervals. Automated dose lowering techniques and/or adjustment according to patient size were utilized for this exam. This exam was performed with intravenous contrast. COMPARISON: Comparison is made to CT abdomen and pelvis 10/01/2020 FINDINGS: Lower chest: No acute abnormality Liver: Unremarkable. No focal lesions are seen. Gallbladder and biliary tree: The gallbladder is distended. No intra- or extrahepatic biliary ductal dilation. Pancreas: Fatty replacement of the pancreas is seen. Spleen: Unremarkable. Adrenals: Unremarkable. Kidneys and ureters: Perinephric stranding is noted bilaterally. Bladder: Fung catheter is seen. Bowel: The colon demonstrates notable thickening and mild surrounding fat stranding in the sigmoid region. A moderate amount of gas is seen. Lymph nodes Retroperitoneal: Unremarkable. Mesenteric: Unremarkable. Pelvic: Unremarkable. Reproductive organs: Unremarkable. Peritoneum: Scattered fat stranding is seen. Vessels: Atherosclerotic calcifications are seen. Abdominal wall: Unremarkable. Bones: Degenerative changes in the visualized spine. IMPRESSION: Sigmoid bowel thickening may represent infectious/inflammatory colitis. Otherwise no acute abnormality is seen. ACT 112: Negative or not required by law. Electronically signed by: Adonay Elizabeth M.D. 12/16/2020 3:29 PM Hospital Course (1) Metabolic acidosis: [facility] with [facility] diarrhea, hypokalemia, BRIANNA (although reported due to hypertension) with bicarb 20, K 2.2 and Cr >4 with baseline closer to 2 likely secondary to lack of p.o. intake as well as possible food related illness from something he ate which could have caused the diarrhea and worsening potassium and kidney function C. difficile testing ordered however was not able to be performed due to formed stool White blood count normalized without continued antibiotics however did get 1 dose of Zosyn in the ER Had not ever had stool cultures obtained ANG was held for BRIANNA per cardiology would not recommend resuming this at discharge given his previous history of LVOT obstruction to be worsened during times dehydration. Did resume his metoprolol succinate 200 mg daily as interrogation done by Dr. Prieto during inpatient stay states functioning laura ropriately Bicarb currently 20 from 19 and will continue bicarb tabs at discharge repeat labs in 2 to 3 days as an [facility] No further diarrhea. Tolerating diet without difficulty. Stated ready for discharge no issues -->If develops diarrhea again, RECOMMEND REPEAT CDIFF/STOOL CULTURE TESTING (2) BRIANNA (acute kidney injury): Resolved Patient does have history of CKD, baseline Cr appears to be closer to 2+ Cr was > 4 on admission, likely prerenal Cr down to 1.2, fluids stopped on 12/18 creatinine remained 1.19 on a.m. labs held lisinopril but given a dose this morning 12/21 prior to discharge but will discontinue this medication per review cardiology consultation given his history of LVOT obstruction and instead continue on his metoprolol 200 mg daily as had previously been held for bradycardia while pacemaker interrogated and reviewed by cardiology and stated he can return on his usual dose Blood pressures worse lately this morning but not did not receive his lisinopril or his Toprol prior to that time To continue monitoring his blood pressure at [facility] however if better blood pressure control needed would consider alternative agent or possibly lower dose of lisinopril as he had previously been on (3) Diarrhea: loose stools, several times a day for about a week prior to admission, causing dehydration, BRIANNA KUB showed no free air, no ileus. CT scan with no IV contrast: colitis in the sigmoid colon follow up on C diff and stool cultures - could not test because stool soft/for med, making C diff unlikely no diarrhea for the 5 days he has been here, seems like it is self limiting could be malabsorption of something he was eating at [facility]? advance diet without issue No further diarrhea-- -->If develops diarrhea again, RECOMMEND REPEAT CDIFF/STOOL CULTURE TESTING as above (4) Hypotension: resolved with aggressive IV fluids, low BP due to dehydration BP improved and actually on the elevated side and his metoprolol was resumed. He did get a dose of his ANG however review with cardiology with his LVOT/HOCM as above would not recommend resuming this medication and this was discontinued (5) Hypokalemia: Low in the twos on admission and was provided with aggressive fluid resu scitation and supplementation with stable repeat labs (6) Diabetes: Decreased needs for initially low appetite and patient now tolerating diet usual medications at discharge (7) Elevated troponin: due to hypotension, HCOM, worsened by hypovolemia no further work up Seen by cardiology during admission, no ischemic changes, asymptomatic and prior elevations (8) Bradycardia: unclear why his pacer is not keeping HR > 60 interrogation ordered, d/w cardiology (Dr. Prieto) --> pacemaker functioning and can resume metoprolol which was done on 12/21 continue discharge Asymptomatic Total Time Total Time Spent Total Time Spent (In Minutes): 60 Discharge Plan Discharge Items Patient Disposition: Transfer Shelter Fac Reason For Visit: BRIANNA, HYPOKALEMIA Discharge Diagnosis: BRIANNA, Hypokalemia, Dehydration Goals: You have been hospitalized for an acute medical problem. During your stay at [facility], we have made an effort to correct the problem that brought you to the hospital while keeping you as comfortable as possible. Medications were used to bring your condition under control and your discharge instructions will include directions for any medications you should take after leaving the hospital. Please make sure you see your Primary Care Provider as part of your follow up plan. Activity: As commented below Activity Comment: Advance therapy as tolerated Non-emergency contact: Primary Care Provider Call non-emergency contact if: you have any medication questions, your symptoms worsen, your pain is concerning for you and you have a fever Follow-up/Referrals: [facility] [Primary Care Provider] - Diet: Carb Consistent or DM2 and Heart Healthy Ambulatory Orders: Basic Metabolic Panel (Routine) Timeframe: 2 Days Location: Determined by Patient Ordered By: Milly Whaley Attending Provider Instructions: Have been hospitalized for hypertension. Also diarrhea over the past several days which likely led dehydration and acute kidney injury as well as low potassium in your diet. Imaging was performed abdomen which showed a likely noninfectious colitis as your white count normalized without antibiotics and you are not being sent on further antibiotics as this could potentially worsen diarrhea. Testing for C. difficile given reported diarrhea was ordered however no further liquid stool was obtained that would allow for testing on this and is deemed to be negative at this point. Your bicarbonate level was low which is seen frequently in diarrheal illnesses and you been provided with sodium bicarbonate tablets which will be continued for an additional 3 to 4 days and repeat labs should be drawn in 2 days to ensure normalization of these and determine if these should be continued further. Your MAGNESIUM supplementation has also been stopped as your levels were actually on the high side and magnesium can cause diarrhea, which could be contributing to your need for current hospitalization. If you develop recurrent diarrhea at discharge please have them repeat a c.diff testing and stool cultures! An echocardiogram ultrasound of your heart was performed and consultation was had with cardiology. You do have thickened heart muscle which can be worsened by low potassium and dehydration can make things like passing out not feeling well worse and it is recommended that we discontinue your lisinopril at this time. Your pacemaker was interrogated by Dr. Prieto as your heart rate had remained on the lower side and he felt that this was functioning properly and recommendations for you to resume and continue your metoprolol 200 mg daily. For now, NO MORE LISINOPRIL. THIS HAS BEEN REMOVED FROM YOUR MEDICATION LIST AND METOPROLOL AND ISOSORBIDE HAVE BEEN USED FOR BLOOD PRESSURE ALONE. If your blood pressure remains elevated (which could have been due to dehydration) you should consider discussing with your primary care about initiation of a lower dose lisinopril or alternative medication to prevent worsening dehydration and recurrence of your symptoms. Arrangements have been made to coordinate care back at [facility] to help with rehab. Please follow-up with your primary care in the next week to monitor progress as well as return to the emergency department if you have any fevers, Chills, chest pain, shortness of breath, worsening diarrhea or abdominal pain or any other symptoms that are concerning for you. Has been a pleasure being a part of the medical team providing for you while you have been in the hospital. Take care! Pending Studies at Discharge: No Stand-Alone Forms: My [facility] Skilled Items Patient informed of condition?: Yes DNR: No Discharge Level of Care: Skilled Communicable Disease: No Discharge Prognosis: Stable Lines: None Urinary Catheter: No Medications and DC Order Prescriptions: New metoprolol succinate 50 mg Tablet Extended Release 24 Hr 200 mg PO QAM 30 Days Qty: 120 RF: 0 isosorbide mononitrate 60 mg Tablet Extended Release 24 Hr 60 mg PO QAM 30 Days Qty: 30 RF: 0 Continued (DME) OneTouch Ultra Blue Test Strip Strip See Dose Instructions .ROUTE .MEDSUPPLY Qty: 100 RF: 6 aspirin 81 mg tablet,chewable 81 mg PO QAM RF: 0 calcium carb-vitamin D3-vit K2 600 mg-1,000 unit-90 mcg tablet 1 tab PO QAM RF: 0 allopurinol 300 mg tablet 300 mg PO QAM RF: 0 atorvastatin 40 mg Tablet 40 mg PO HS Qty: 30 RF: 0 Multivitamin 50 Plus Tablet 1 tab PO PM RF: 0 polyethylene glycol 3350 [Miralax] 17 gram powder in packet 17 g PO Q12H PRN (Reason: Constipation) RF: 0 cholecalciferol (vitamin D3) 25 mcg (1,000 unit) capsule 1,000 units PO QAM RF: 0 Lantus Solostar U-100 Insulin 100 unit/mL (3 mL) insulin pen 8 unit SC QAM RF: 0 Eliquis 5 mg tablet 5 mg PO Q12H RF: 0 insulin aspart U-100 [Novolog U-100 Insulin aspart] 100 unit/mL Solution 1 sliding scale dose SUBCUT USEASDIRECTD RF: 0 tamsulosin 0.4 mg capsule 0.4 mg PO Q12H RF: 0 acetaminophen 325 mg Tablet 650 mg PO Q4H PRN (Reason: [place]/fever/pain) Qty: 30 RF: 0 cyanocobalamin (vitamin B-12) 500 mcg Tablet 1,000 mcg PO QAM Qty: 60 RF: 0 finasteride [Proscar] 5 mg Tablet 5 mg PO QAM Qty: 30 RF: 0 oxybutynin chloride 10 mg Tablet Extended Release 24hr 10 mg PO QAM RF: 0 nystatin 100,000 unit/gram Cream 1 applic TOPICAL DAILY RF: 0 sertraline 25 mg Tablet 25 mg PO QAM RF: 0 docusate sodium 100 mg capsule 100 mg PO Q12H PRN (Reason: Constipation) RF: 0 insulin aspart U-100 [Novolog Flexpen U-100 Insulin] 100 unit/mL (3 mL) Insulin Pen 3 unit SC AC Qty: 3 RF: 0 Discontinued magnesium oxide 400 mg (241.3 mg magnesium) tablet 400 mg PO QAM RF: 0 Discharge Orders: Discharge Order (Routine); Ordered 12/21/20 Ordered By: Milly Borja Admission Data Admit Date/Time: 12/16/20 13:49 Attending Provider: Tremaine Sales Admit Provider: Manjinder Russell Primary Care Provider: [facility] Other Providers: [facility] ; Manjinder Russell ; Sergey Johnson Other Interventions: Discharge Summary Assessment (RN) Last Done: 12/21/20 14:49 Supervising Physician Co-Signing Physician Notes Attending Attestation & Discharge Note: Pt seen/examined, chart reviewed, discharge care plan d/w YRIS Borja. I agree w/ the nickerson components of her discharge documentation. 75yo male who presented with BRIANNA (Peak Cr 4.7), diarrhea, low BP, anorexia, and weakness. Treated with IV fluids and supportive care. CT abd/pelvis with ?sigmoid inflammatory changes but no diverticulitis. Despite pre-hospital diarrhea he never had diarrhea while here; thus, unable to test for enteric pathogens, c diff, etc. With IV fluids and time his creatinine improved; discharge Cr was 1.1. At time of discharge it was uncertain what the primary culprit was for his presenting symptoms. If GI symptoms persist strongly consider referral to GASTROENTEROLOGY. Discharge exam: gen - NAD, obese mouth - MMM neck - no JVD heart - RRR, s1 s2 lungs - CTA b/l abd - mildly distended, BS+, NT, no HSM ext - no edema, pulses 2+ b/l Agree w/ repeat labs within 3-4 days of discharge. If diarrhea returns then check c diff & stool culture. Tremaine Sales MD Coding Level of Care Code D/C DAY MANAGEMENT >30 MINS Diagnoses BRIANNA (acute kidney injury) N17.9 Metabolic acidosis E87.2 Diarrhea R19.7 Hypotension I95.9 Hypokalemia E87.6 Diabetes E11.9 Elevated troponin R77.8 Bradycardia R00.1
== END 2020-12-21 16:37 | DRG 682 ==
LOC: ED 10:47 → SUATTDRO 13:49 → 2S 13:49 → 3N 12-19 14:21

== ENCOUNTER 2021-07-25 09:03 | Inpatient (IN) ==
[2021-07-25] MEDS ORDERED: ONDANSETRON INJ 2 MG/ML 2 ML VIAL IV STA (09:38)
[2021-07-25] MEDS ORDERED: SODIUM CHLORIDE 0.9% 1000ML 1,000 ML IV SCH (09:45)
[2021-07-25 10:19] LABS: Albumin Level 3.4 gm/dl (3.4-5.0); BUN Creatinine Ratio 33.6 (10-20); Bilirubin,Total 0.5 mg/dl (0.2-1.0); Calcium 8.4 mg/dl (8.5-10.1); Creatinine Clr Calc Pharmacy 32.7 ml/min; Est GFR (African American) 31.3 ml/min; Globulin 3.5 gm/dl (2.5-4.0); Magnesium 1.5 mg/dl (1.7-2.4); Total Protein 6.9 gm/dl (6.0-8.3)
[2021-07-25 10:26] LABS: Basophils # (auto) 0.01 K/uL (0-0.2); Basophils % (auto) 0.2 %; Echinocytes 2+; Eosinophils # (auto) 0.09 K/uL (0-0.5); Eosinophils % (auto) 1.5 %; Hematocrit (blood only) 31.5 % (42-52); Hemoglobin 10.9 g/dL (14.0-18.0); Immature Granulocytes # (auto) 0.15 K/uL (0.00-0.02); Immature Granulocytes % (auto) 2.5 %; Lymphocytes # (auto) 0.89 K/uL (1.2-3.4); Lymphocytes % (auto) 14.9 %; Mean Corpuscular Hemoglobin 31.2 pg (25-34); Mean Corpuscular Hgb Conc 34.6 g/dL (32-36); Mean Corpuscular Volume 90.3 fL (80-100); Monocytes # (auto) 0.84 K/uL (0.11-0.59); Neutrophils # (auto) 4.01 K/uL (1.4-6.5); Neutrophils % (auto) 66.9 %; Platelet Count 189 K/uL (130-400); Red Blood Count 3.49 M/uL (4.7-6.1); White Blood Count 5.99 K/uL (4.8-10.8)
[2021-07-25 10:28] LABS: Troponin I High Sensitivity 86.4 pg/ml (0-20)
[2021-07-25 10:56] LABS: Influenza A virus by PCR Negative (Neg); Influenza B virus by PCR Negative (Neg); RSV by PCR Negative (Neg); SARS CoV2 RNA(COVID-19) InHosp NEGATIVE (Negative)
--- NOTE | 2021-07-25 11:35 | XRay Report ---
XR chest 1V portable CLINICAL HISTORY: weakness COMPARISON STUDY: Chest radiograph December 16, 2020 FINDINGS: Dual lead left subclavian pacemaker is in place. Lucency under the right hemidiaphragm are present as within the colon, as shown on prior exams. Cardiomediastinal is noted without evidence for pulmonary edema. Linear left basilar opacity reflects atelectasis. Opacity medial right lung base al so likely reflects atelectasis. No pneumothorax or pleural effusion. No consolidation to suggest pneu monia. Lung volumes are diminished, unchanged. IMPRESSION: 1. No acute cardiopulmonary findings. 2. Low lung volumes with left basilar opacity consistent with atelectasis. Opacity at the medial righ t lung base which also likely reflects atelectasis. 3. Cardiomegaly without evidence for pulmonary edema. ACT 112: Negative or not required by law. Electronically signed by: Yosef Still M.D. 07/25/2021 11:33 AM
--- NOTE | 2021-07-25 11:52 | XRay Report ---
KUB CLINICAL HISTORY: Vomiting. COMPARISON STUDY: CT of the abdomen and pelvis December 16, 2020. FINDINGS: Multiple loops of markedly dilated small bowel are noted. There may also be distended loops of colon. There is no gas within the rectum. These findings represent a bowel obstruction. Although sensitivity diminished on this supine exam, there is no evidence for free air. IMPRESSION: Multiple loops of markedly dilated small bowel. Possible distention of the right colon. The findings represent a bowel obstruction and favor a small bowel obstruction however a colonic obst ruction could appear similar. CT of the abdomen and pelvis is recommended for further evaluation. ACT 112: Negative or not required by law. Electronically signed by: Yosef Still M.D. 07/25/2021 11:50 AM
--- NOTE | 2021-07-25 12:14 | Electrocardiogram Report ---
Test Reason : Blood Pressure : / mmHG Vent. Rate : 056 BPM Atrial Rate : 058 BPM P-R Int : 278 ms QRS Dur : 148 ms QT Int : 452 ms P-R-T Axes : 107 -33 -04 degrees QTc Int : 436 ms Atrial-paced rhythm with prolonged AV conduction Left axis deviation Right bundle branch block Abnormal ECG When compared with ECG of 18-DEC-2020 06:09, Electronic atrial pacemaker has replaced Sinus rhythm QT has shortened Confirmed by Sergye Johnson ([id number]) on 07/25/2021 12:13:34 PM Referred By: REFERRED SELF Confirmed By:Sergey Johnson
--- NOTE | 2021-07-25 12:45 | CT Scan Report ---
CT OF THE ABDOMEN AND PELVIS WITHOUT CONTRAST CLINICAL HISTORY: ?obstruction, diarrhea and vomiting COMPARISON STUDY: CT of the abdomen and pelvis December 16, 2020. KUB performed earlier today. TECHNIQUE: Axial images of the abdomen and pelvis were obtained without IV contrast. Images were revi ewed in the axial, sagittal, and coronal planes. Automated exposure control was utilized for the sabiha dy. A dose lowering technique was utilized adhering to the principles of ALARA. FINDINGS: Visualized portions of the lower chest demonstrate cardiomegaly. Pacer leads are partially imaged. There is a trace right pleural effusion. Subpleural right lower lobe and right middle lobe ai rspace opacity is present. No pneumatosis, free air or portal venous gas is present. Evaluation of th e abdomen and pelvis is suboptimal on this unenhanced exam. Liver, spleen, adrenal glands, kidneys an d pancreas are unremarkable. No biliary or pancreatic ductal dilatation is present. There is no hydro nephrosis. There are no urinary calculi. Note is made of a small right rectus sheath hematoma. Given small foci of increased attenuation, this is likely acute. The entire colon and rectum is distended a nd fluid-filled. Transverse colon measures 9.2 cm in caliber. There is no transition point. The dista l small bowel is also mildly dilated and fluid-filled. No bowel wall thickening is identified on unen hanced exam. Trace fluid within the right paracolic gutter is present. No lymphadenopathy. No acute f racture or suspicious lesion within the visualized skeletal structures. IMPRESSION: 1. Fluid-filled dilated colon and rectum. Transverse colon measures up to 9.2 cm in caliber. No trans ition point to suggest a bowel obstruction. No volvulus. The findings suggest a diarrheal state and c ould reflect colonic pseudoobstruction/Crane syndrome given significant colorectal distention. Asso ciated mild dilatation of the distal small bowel. KUB follow-up is suggested. 2. Small right rectus sheath hematoma. 3. Right middle lobe and right lower lobe airspace opacities. This favors an infectious process. 4. Trace right pleural effusion. ACT 112: Negative or not required by law. Electronically signed by: Yosef Still M.D. 07/25/2021 12:44 PM
[2021-07-25] MEDS ORDERED: PIPERACILL/TAZOBAC CONSULT ACTIVE PRN (13:37)
[2021-07-25] MEDS ORDERED: PIPERACILLIN/TAZOBACTAM 4.5 GM/120 ML BAG IV ONE (13:37)
[2021-07-25] MEDS ORDERED: SODIUM CHLORIDE 0.9% 500 ML IV ONE (13:37)
[2021-07-25] MEDS ORDERED: ACETAMINOPHEN 325 MG TAB PO PRN (14:16)
--- NOTE | 2021-07-25 14:31 | Emergency Department Note ---
Impression & Plan Vomiting and diarrhea, Aspiration into respiratory tract, Acute intestinal pseudo-obstruction, Acute kidney injury ED Provider Note CHIEF COMPLAINT: Vomiting, diarrhea HISTORY OF PRESENT ILLNESS: This 76 yo male patient presents to the emergency department by EMS with complaints of vomiting and diarrhea. Patient resides at the [facility] for the last 2 to 3 weeks for rehabilitation. He states he is normally at home. He is unclear if a vomiting and diarrheal illness is going around the nursing facility. He denies any significant pain. Patient denies any blood in the emesis or stools. He does not believe he has had a fever but is largely a poor historian. Patient states he has been on antibiotics related to a wound on his left leg. He denies any chest pain, SOB or cough. REVIEW OF SYSTEMS: ROS is limited as the patient is a poor historian. Much of the history is taken from EMS and nursing reports. ALLERGIES: see below MEDICATIONS: see below PMH: see below SOCIAL HISTORY: Currently at the [facility] for rehabilitation services. DDx: Gastroenteritis, food borne illness, infections, appendicitis, diverticulitis, inflammatory bowel disease, obstruction, GI bleed, biliary pathology, volvulus, as well as other pathologies. PHYSICAL EXAM: Vital signs reviewed. General: Chronically ill-appearing 76-year-old male, in no significant distress. HEENT: No scleral icterus, PERRLA, neck supple. Atraumatic. Cardiovascular: Regular rate and rhythm, no extra sounds. Pulmonary: Coarse breath sounds at the bases bilaterally, normal work of breathing on RA Abdomen: Soft, nontender, nondistended, positive bowel sounds. Musculoskeletal: Atraumatic, no peripheral edema. Neurologic: Patient awake alert and answers most questions with simple 1 word phrases, speech is clear. Skin: Warm, dry, open wounds to buttocks, L posterior leg wound distal upper thigh. EMERGENCY DEPARTMENT COURSE/MDM: This patient was evaluated and appeared to be in no significant distress. IV access was obtained and laboratory work was drawn. The patient was placed on the cafeteria monitor and noted to be in a paced rhythm. Vital signs are stable. The patient was hydrated with normal saline solution. X-rays were performed of the chest and the abdomen. There is concern for obstruction due to dilated loops of bowel. CT of the abdomen pelvis was performed and reveals no evidence of obstruction however there is liquid stool throughout the colon and dilated bowel c/w pseudoobstruction. There is also a small rectus sheath hematoma and a right middle and lower lobe airspace opacity. I would be concerned about aspiration given the patient's vomiting previously. Patient has not vomited in the emergency department but was given Zofran upon arrival. Patient was covered with IV Zosyn 4.5 g. Laboratory work is consistent with an BRIANNA and anemia. Pt was discussed with the hospitalist service for admission and further management. MONITORING: An order for cardiac monitoring was placed and the patient is noted to be in an atrially paced rhythm with prolonged AV conduction at 69 beats per minute. RADIOLOGY: see below EKG: Atrially paced rhythm with prolonged AV conduction at 56 bpm. Left axis deviation with a right bundle branch block. QTc is 436. No PVC, no PAC. Normal ST segments. DISPOSITION: Admission Past Med/Surg History Medical History Acute hypokalemia Acute hypotension BRIANNA (acute kidney injury) Anemia of chronic disease BPH with obstruction/lower urinary tract symptoms CKD (chronic kidney disease) Deep vein thrombosis (DVT) of left lower extremity Diabetes Elevated troponin Hypertension Hypertrophic obstructive cardiomyopathy (HOCM) Low back pain Mobitz (type) II atrioventricular block Proteinuria Sinus node dysfunction Skin carcinoma Spinal stenosis Subclavian vein thromboembolism, acute Syncope and collapse Surgical History H/O arthroscopy of knee History of cataract surgery Status post placement of cardiac pacemaker Family History Mother Ovarian cancer Diabetes Father Diabetes Unknown Coronary heart disease Denies family history of Prostate cancer Myocardial infarction Breast cancer Colorectal cancer Social History Smoking Status: Never smoker Second Hand Exposure: No; Hx Alcohol Use: No Hx Substance Use: No Preferred Language: Singaporean Communication Ability: Effective Research Staff Member Required: No Beliefs That Will Affect Care: None marital status: / Current Living Situation: Prison Current Living Situation Comment: home with brother, was just discharged from [facility] earlier today current occupational status: retired How many Children do You have: 0 Feels Safe at Home: Yes Childhood Exposure to Second-Hand Smoke: No caffeine: Yes Dental Care, Regularly: Yes Physical Activity Frequency: 1-2 Times per Week Seatbelt Use: always Sunscreen Use: No Assistive Devices: Glasses and Walker Allergies Allergies Allergy/AdvReac Type Severity Reaction Status Date / Time No Known Allergies Allergy ` Verified 07/25/21 09:26 Home Meds Home Medications Medication Instructions Recorded Confirmed allopurinol 300 mg tablet 300 mg PO QAM 10/19/20 07/25/21 aspirin 81 mg chewable tablet 81 mg PO QAM 10/19/20 07/25/21 docusate sodium 100 mg capsule 100 mg PO Q12H PRN 11/14/20 07/25/21 nystatin 100,000 unit/gram topical 1 applic TOPICAL BID 11/14/20 07/25/21 cream sertraline 25 mg tablet 25 mg PO [facility] 11/14/20 07/25/21 cholecalciferol (vitamin D3) 25 1,000 units PO [facility] 12/16/20 07/25/21 mcg (1,000 unit) capsule insulin glargine 100 unit/mL (3 8 unit SC [facility] 12/16/20 07/25/21 mL) subcutaneous pen (Lantus Solostar U-100 Insulin) polyethylene glycol 3350 17 gram 17 g PO Q12H PRN 12/16/20 07/25/21 oral powder packet (Miralax) tamsulosin 0.4 mg capsule 0.4 mg PO BID17 12/16/20 07/25/21 ascorbic acid (vitamin C) 250 mg 250 mg PO [facility] 03/01/21 07/25/21 tablet isosorbide mononitrate 60 mg 60 mg PO [facility] 03/01/21 07/25/21 tablet,extended release 24 hr metoprolol succinate 200 mg 200 mg PO [facility] 03/01/21 07/25/21 capsule sprinkle, ext. release 24 hr ropinirole 1 mg tablet 1 mg PO QAM 03/01/21 07/25/21 losartan 50 mg tablet 50 mg PO QAM 07/16/21 07/25/21 oxybutynin chloride 5 mg tablet 10 mg PO QA 07/16/21 07/25/21 potassium chloride 20 mEq 40 meq PO BID17 07/16/21 07/25/21 tablet,extended release simethicone 125 mg chewable tablet 125 mg PO Q6H PRN 07/16/21 07/25/21 Abc Complete Senior 50+ 1 tab PO HS 07/25/21 07/25/21 cyanocobalamin (vitamin B-12) 1,000 mcg PO QAM 07/25/21 07/25/21 1,000 mcg tablet (Vitamin B-12) Previous Rx's Medication Instructions Recorded blood sugar diagnostic (OneTouch #100 ea 06/29/20 Ultra Blue Test Strip) acetaminophen 325 mg tablet 650 mg PO Q4H PRN #30 tab 10/09/20 finasteride 5 mg tablet (Proscar) 5 mg PO QAM #30 tab 10/09/20 atorvastatin 40 mg tablet 40 mg PO HS #30 tab 10/29/20 insulin aspart U-100 100 unit/mL 3 unit SC AC #3 ml 11/20/20 (3 mL) subcutaneous pen (Novolog Flexpen U-100 Insulin aspart) cephalexin 500 mg capsule 500 mg PO QID 10 Days #40 cap 07/16/21 Results & Data (ED) Vital Signs Vital Signs - 24 hr 07/25/21 09:23 07/25/21 09:32 07/25/21 10:00 Temperature 36.5 C Temperature Source Oral Pulse Rate 71 61 Pulse Rate [Radial] Pulse Rate from SpO2 Sensor 58 L Pulse Rhythm [Radial] Pulse Strength [Radial] Respiratory Rate 20 24 Respiratory Effort / Characteristics Respiratory Depth Blood Pressure 172/67 H 168/71 H Blood Pressure [Left Arm] Blood Pressure Mean 102 103 Blood Pressure Mean [Left Arm] Blood Pressure Position [Left Arm] Pulse Oximetry 98 98 99 Oxygen Delivery Method Room Air Room Air Room Air Sepsis Recent Fever Within 48 Hours No Sepsis New/Unexplained Change in Mental Status No Sepsis Action Taken by Nursing No Action Required 07/25/21 10:30 07/25/21 11:30 07/25/21 12:30 Temperature Temperature Source Pulse Rate 67 Pulse Rate [Radial] 71 77 Pulse Rate from SpO2 Sensor 62 Pulse Rhythm [Radial] Regular Regular Pulse Strength [Radial] Normal Normal Respiratory Rate 21 20 20 Respiratory Effort / Characteristics Non-Labored Respiratory Depth Normal Blood Pressure 181/81 H Blood Pressure [Left Arm] 118/81 118/69 Blood Pressure Mean 114 Blood Pressure Mean [Left Arm] 93 85 Blood Pressure Position [Left Arm] Lying Pulse Oximetry 98 93 92 Oxygen Delivery Method Room Air Room Air Room Air Sepsis Recent Fever Within 48 Hours Sepsis New/Unexplained Change in Mental Status Sepsis Action Taken by Nursing 07/25/21 13:11 07/25/21 13:30 07/25/21 14:00 Temperature Temperature Source Pulse Rate 69 66 66 Pulse Rate [Radial] Pulse Rate from SpO2 Sensor 64 Pulse Rhythm [Radial] Pulse Strength [Radial] Respiratory Rate 19 18 24 Respiratory Effort / Characteristics Respiratory Depth Blood Pressure 96/80 L 171/74 H 143/72 H Blood Pressure [Left Arm] Blood Pressure Mean 85 106 95 Blood Pressure Mean [Left Arm] Blood Pressure Position [Left Arm] Pulse Oximetry 100 98 98 Oxygen Delivery Method Room Air Room Air Room Air Sepsis Recent Fever Within 48 Hours Sepsis New/Unexplained Change in Mental Status Sepsis Action Taken by Nursing 07/25/21 14:30 Temperature Temperature Source Pulse Rate 74 Pulse Rate [Radial] Pulse Rate from SpO2 Sensor Pulse Rhythm [Radial] Pulse Strength [Radial] Respiratory Rate 22 Respiratory Effort / Characteristics Respiratory Depth Blood Pressure 181/71 H Blood Pressure [Left Arm] Blood Pressure Mean 107 Blood Pressure Mean [Left Arm] Blood Pressure Position [Left Arm] Pulse Oximetry 95 Oxygen Delivery Method Room Air Sepsis Recent Fever Within 48 Hours Sepsis New/Unexplained Change in Mental Status Sepsis Action Taken by Nursing Laboratory Data Result diagrams: 07/25/21 09:35 07/25/21 09:35 Lab Results 07/25/21 07/25/21 07/25/21 Range/Units 09:35 09:35 09:50 WBC 5.99 (4.8-10.8) K/uL RBC 3.49 L (4.7-6.1) M/uL Hgb 10.9 L (14.0-18.0) g/dL Hct 31.5 L (42-52) % MCV 90.3 (80-100) fL MCH 31.2 (25-34) pg MCHC 34.6 (32-36) g/dL Plt Count 189 (130-400) K/uL Immature Gran % (Auto) 2.5 % Neut % (Auto) 66.9 % Lymph % (Auto) 14.9 % [place] % (Auto) 14.0 % Eos % (Auto) 1.5 % Baso % (Auto) 0.2 % Neut # (Auto) 4.01 (1.4-6.5) K/uL Lymph # (Auto) 0.89 L (1.2-3.4) K/uL [place] # (Auto) 0.84 H (0.11-0.59) K/uL Eos # (Auto) 0.09 (0-0.5) K/uL Baso # (Auto) 0.01 (0-0.2) K/uL Immature Gran # (Auto) 0.15 H (0.00-0.02) K/uL Echinocytes 2+ Sodium 137 (136-145) mmol/L Potassium 4.0 (3.5-5.1) mmol/L Chloride 115 H (98-107) mmol/L Carbon Dioxide 11 L (21-32) mmol/L Anion Gap 11 (3-11) BUN 76 H (6-23) mg/dl Creatinine 2.26 H (0.6-1.4) mg/dl Est Cr Clr Drug Dosing 32.7 ml/min Est GFR ( Amer) 31.3 ml/min Est GFR (Non-Af Amer) 27.0 ml/min BUN/Creatinine Ratio 33.6 H (10-20) Glucose 169 H (70-99(Fasting)) mg/dl Lactate (0.4-2.0) mmol/L Calcium 8.4 L (8.5-10.1) mg/dl Magnesium 1.5 L (1.7-2.4) mg/dl Total Bilirubin 0.5 (0.2-1.0) mg/dl AST 28 (13-39) U/L ALT 16 (7-52) U/L Alkaline Phosphatase 83 (34-104) U/L Total Creatine Kinase 193 (30-223) U/L Troponin I High Sens 86.4 H* (0-20) pg/ml Total Protein 6.9 (6.0-8.3) gm/dl Albumin 3.4 (3.4-5.0) gm/dl Globulin 3.5 (2.5-4.0) gm/dl Albumin/Globulin Ratio 1.0 (0.9-2) SARS-CoV-2 (PCR) NEGATIVE (Negative) Influenza Type A (PCR) Negative (Neg) Influenza Type B (PCR) Negative (Neg) RSV (RT-PCR) Negative (Neg) 07/25/21 Range/Units 10:24 WBC (4.8-10.8) K/uL RBC (4.7-6.1) M/uL Hgb (14.0-18.0) g/dL Hct (42-52) % MCV (80-100) fL MCH (25-34) pg MCHC (32-36) g/dL Plt Count (130-400) K/uL Immature Gran % (Auto) % Neut % (Auto) % Lymph % (Auto) % [place] % (Auto) % Eos % (Auto) % Baso % (Auto) % Neut # (Auto) (1.4-6.5) K/uL Lymph # (Auto) (1.2-3.4) K/uL [place] # (Auto) (0.11-0.59) K/uL Eos # (Auto) (0-0.5) K/uL Baso # (Auto) (0-0.2) K/uL Immature Gran # (Auto) (0.00-0.02) K/uL Echinocytes Sodium (136-145) mmol/L Potassium (3.5-5.1) mmol/L Chloride (98-107) mmol/L Carbon Dioxide (21-32) mmol/L Anion Gap (3-11) BUN (6-23) mg/dl Creatinine (0.6-1.4) mg/dl Est Cr Clr Drug Dosing ml/min Est GFR ( Amer) ml/min Est GFR (Non-Af Amer) ml/min BUN/Creatinine Ratio (10-20) Glucose (70-99(Fasting)) mg/dl Lactate 0.7 (0.4-2.0) mmol/L Calcium (8.5-10.1) mg/dl Magnesium (1.7-2.4) mg/dl Total Bilirubin (0.2-1.0) mg/dl AST (13-39) U/L ALT (7-52) U/L Alkaline Phosphatase (34-104) U/L Total Creatine Kinase (30-223) U/L Troponin I High Sens (0-20) pg/ml Total Protein (6.0-8.3) gm/dl Albumin (3.4-5.0) gm/dl Globulin (2.5-4.0) gm/dl Albumin/Globulin Ratio (0.9-2) SARS-CoV-2 (PCR) (Negative) Influenza Type A (PCR) (Neg) Influenza Type B (PCR) (Neg) RSV (RT-PCR) (Neg) Administered Medications Sodium Chloride (Nss 1000ml) 1,000 mls @ 125 mls/hr IV .Q8H NAA Stop: 07/25/21 17:44 Last Admin: 07/25/21 09:47 Dose: 125 mls/hr Documented by: [id number] Discontinued Medications Sodium Chloride (Nss) 500 mls @ 999 mls/hr IV .Q31M ONE Stop: 07/25/21 14:07 Last Infusion: 07/25/21 14:15 Dose: 0 mls/hr Documented by: [id number] Admin: 07/25/21 13:44 Dose: 999 mls/hr Documented by: [id number] Piperacillin Sod/Tazobactam Sod (Zosyn) 4.5 gm in 120 mls @ 240 mls/hr IV NOW ONE Stop: 07/25/21 14:06 Last Infusion: 07/25/21 14:14 Dose: 0 mls/hr Documented by: [id number] Admin: 07/25/21 13:44 Dose: 240 mls/hr Documented by: [id number] Ondansetron HCl (Ondansetron Inj 2 Mg/Ml 2 Ml Vial) 4 mg IV NOW STA Stop: 07/25/21 09:39 Last Admin: 07/25/21 09:49 Dose: 4 mg Documented by: [id number] Imaging Data Radiologist's Impression: Chest X-Ray 07/25/21 09:38 XR chest 1V portable CLINICAL HISTORY: weakness COMPARISON STUDY: Chest radiograph December 16, 2020 FINDINGS: Dual lead left subclavian pacemaker is in place. Lucency under the right hemidiaphragm are present as within the colon, as shown on prior exams. Cardiomediastinal is noted without evidence for pulmonary edema. Linear left basilar opacity reflects atelectasis. Opacity medial right lung base also likely reflects atelectasis. No pneumothorax or pleural effusion. No consolidation to suggest pneumonia. Lung volumes are diminished, unchanged. IMPRESSION: 1. No acute cardiopulmonary findings. 2. Low lung volumes with left basilar opacity consistent with atelectasis. Opacity at the medial right lung base which also likely reflects atelectasis. 3. Cardiomegaly without evidence for pulmonary edema. ACT 112: Negative or not required by law. Electronically signed by: Yosef Still M.D. 07/25/2021 11:33 AM KUB X-Ray 07/25/21 09:38 KUB CLINICAL HISTORY: Vomiting. COMPARISON STUDY: CT of the abdomen and pelvis December 16, 2020. FINDINGS: Multiple loops of markedly dilated small bowel are noted. There may also be distended loops of colon. There is no gas within the rectum. These findings represent a bowel obstruction. Although sensitivity diminished on this supine exam, there is no evidence for free air. IMPRESSION: Multiple loops of markedly dilated small bowel. Possible distention of the right colon. The findings represent a bowel obstruction and favor a small bowel obstruction however a colonic obstruction could appear similar. CT of the abdomen and pelvis is recommended for further evaluation. ACT 112: Negative or not required by law. Electronically signed by: Yosef Still M.D. 07/25/2021 11:50 AM Abdomen/Pelvis CT 07/25/21 11:37 CT OF THE ABDOMEN AND PELVIS WITHOUT CONTRAST CLINICAL HISTORY: ?obstruction, diarrhea and vomiting COMPARISON STUDY: CT of the abdomen and pelvis December 16, 2020. KUB performed earlier today. TECHNIQUE: Axial images of the abdomen and pelvis were obtained without IV contrast. Images were reviewed in the axial, sagittal, and coronal planes. Automated exposure control was utilized for the study. A dose lowering technique was utilized adhering to the principles of ALARA. FINDINGS: Visualized portions of the lower chest demonstrate cardiomegaly. Pacer leads are partially imaged. There is a trace right pleural effusion. Subpleural right lower lobe and right middle lobe airspace opacity is present. No pneumatosis, free air or portal venous gas is present. Evaluation of the abdomen and pelvis is suboptimal on this unenhanced exam. Liver, spleen, adrenal glands, kidneys and pancreas are unremarkable. No biliary or pancreatic ductal dilatation is present. There is no hydronephrosis. There are no urinary calculi. Note is made of a small right rectus sheath hematoma. Given small foci of increased attenuation, this is likely acute. The entire colon and rectum is distended and fluid-filled. Transverse colon measures 9.2 cm in caliber. There i s no transition point. The distal small bowel is also mildly dilated and fluid- filled. No bowel wall thickening is identified on unenhanced exam. Trace fluid within the right paracolic gutter is present. No lymphadenopathy. No acute fracture or suspicious lesion within the visualized skeletal structures. IMPRESSION: 1. Fluid-filled dilated colon and rectum. Transverse colon measures up to 9.2 cm in caliber. No transition point to suggest a bowel obstruction. No volvulus. The findings suggest a diarrheal state and could reflect colonic pseud oobstruction/Cece syndrome given significant colorectal distention. Associated mild dilatation of the distal small bowel. KUB follow-up is suggested. 2. Small right rectus sheath hematoma. 3. Right middle lobe and right lower lobe airspace opacities. This favors an infectious process. 4. Trace right pleural effusion. ACT 112: Negative or not required by law. Electronically signed by: Yosef Still M.D. 07/25/2021 12:44 PM Blood Pressure Blood Pressure Findings: Low blood pressure Blood Pressure Disposition: further management by hospitalist Discharge Plan Visit Data Chief Complaint: Illness ED Provider: Latia Jennings Discharge Problem: Vomiting and diarrhea, Aspiration into respiratory tract, Acute intestinal pseudo-obstruction, Acute kidney injury Forms Stand Alone Forms: [facility] Prescriptions Prescriptions: No Action (DME) OneTouch Ultra Blue Test Strip Strip See Dose Instructions .ROUTE .MEDSUPPLY Qty: 100 RF: 6 ascorbic acid (vitamin C) 250 mg tablet 250 mg PO QAM RF: 0 isosorbide mononitrate 60 mg tablet extended release 24 hr 60 mg PO QAM RF: 0 metoprolol succinate 200 mg capsule,sprinkle,ER 24hr 200 mg PO QAM RF: 0 ropinirole 1 mg tablet 1 mg PO QAM RF: 0 aspirin 81 mg tablet,chewable 81 mg PO QAM RF: 0 allopurinol 300 mg tablet 300 mg PO QAM RF: 0 atorvastatin 40 mg Tablet 40 mg PO HS Qty: 30 RF: 0 polyethylene glycol 3350 [Miralax] 17 gram powder in packet 17 g PO Q12H PRN (Reason: Constipation) RF: 0 cholecalciferol (vitamin D3) 25 mcg (1,000 unit) capsule 1,000 units PO QAM RF: 0 Lantus Solostar U-100 Insulin 100 unit/mL (3 mL) insulin pen 8 unit SC QAM RF: 0 tamsulosin 0.4 mg capsule 0.4 mg PO BID17 RF: 0 losartan 50 mg Tablet 50 mg PO QAM RF: 0 simethicone 125 mg Tablet,Chewable 125 mg PO Q6H PRN (Reason: GAS RELIEF) RF: 0 oxybutynin chloride 5 mg Tablet 10 mg PO QAM RF: 0 potassium chloride 20 mEq Tablet Extended Release 40 meq PO BID17 RF: 0 cephalexin 500 mg capsule 500 mg PO QID 10 Days Qty: 40 RF: 0 acetaminophen 325 mg Tablet 650 mg PO Q4H PRN (Reason: [place]/fever/pain) Qty: 30 RF: 0 finasteride [Proscar] 5 mg Tablet 5 mg PO QAM Qty: 30 RF: 0 nystatin 100,000 unit/gram Cream 1 applic TOPICAL BID RF: 0 sertraline 25 mg Tablet 25 mg PO QAM RF: 0 docusate sodium 100 mg capsule 100 mg PO Q12H PRN (Reason: Constipation) RF: 0 insulin aspart U-100 [Novolog Flexpen U-100 Insulin] 100 unit/mL (3 mL) Insulin Pen 3 unit SC AC Qty: 3 RF: 0 Abc Complete Senior 50+ 1 tab PO HS RF: 0 cyanocobalamin (vitamin B-12) [Vitamin B-12] 1,000 mcg Tablet 1,000 mcg PO QAM RF: 0 Referrals Referrals: [facility] [Primary Care Provider] - Discharge Problem: Aspiration into respiratory tract Qualifiers: Encounter type: initial encounter Qualified Code(s): T17.908A - Unspecified fo reign body in respiratory tract, part unspecified causing other injury, initial encounter
[2021-07-25] MEDS ORDERED: GLUCOSE 10 TABS/TUBE PO PRN (15:00)
[2021-07-25] MEDS ORDERED: DEXTROSE 50% 50 ML SYRINGE IV PRN (15:00)
[2021-07-25] MEDS ORDERED: CARBOHYDRATES FOR HYPOGLYCEMIA PO PRN (15:00)
[2021-07-25] MEDS ORDERED: GLUCOSE 40% GEL 15 GM TUBE PO PRN (15:00)
[2021-07-25] MEDS ORDERED: GLUCAGON FOR INJ 1 MG VIAL IM PRN (15:00)
[2021-07-25 16:55] LABS: Appearance Urine Clear (Clear); Bacteria Urine Automated Negative (Negative); Bilirubin Urine Negative (Negative); Blood Urine Negative (Negative); Color Urine Yellow; Glucose Urine UA Negative (Negative); Ketones Urine Trace (Negative); Leukocyte Esterase Urine Negative (Negative); Nitrite Urine Negative (Negative); Protein Urine 2+ (Negative); RBC Urine Automated 0-4 /hpf (0-4); Specific Gravity Urine 1.019 (1.000-1.030); Urobilinogen Urine Negative (Negative)
[2021-07-25] MEDS ORDERED: METOPROLOL TARTRATE 1 MG/ML VIAL IV PRN (18:07)
--- NOTE | 2021-07-25 18:07 | History & Physical Report ---
Date of Service July 25, 2021 Assessment & Plan (1) BRIANNA (acute kidney injury): Plan: Most likely secondary to dehydration nausea vomiting and diarrhea Continue IV fluids saline at rate of 100 mL/h BMP tomorrow Hold losartan (2) Vomiting and diarrhea: Plan: Etiology unclear possibly viral Improving Started on diabetic diet Symptomatic management Doubt this is colostrum difficile infection (3) Elevated troponin: Plan: Elevated mildly Possibly secondary to acute kidney injury (4) Accelerated hypertension: Plan: I would initiate him on Norvasc Lopressor as needed (5) Spinal stenosis: Plan: The patient history of spinal stenosis and not currently complaining of worsening of ambulatory dysfunction, patient used to walk with a cane now he can only walk with a walker Proceed with MRI of the LS spine to evaluate for cord compression or nerve root impingement PT OT (6) Diabetes 1.5, managed as type 2: Plan: Continue sliding scale Admission and Anticipated Discharge Date Admission Date: July 25, 2021 History of Present Illness Chief Complaint: Weakness, lower extremity weakness, nausea, diarrhea Primary Care Provider: [facility] The patient is a 75-year-old male with a past medical history significant for chronic kidney disease stage IIIstage IV,hcm, previous TIAs, sick sinus syndrome status post pacemaker, nausea vomiting diarrhea started about 2 days ago. Patient lives by himself. He used to walk with a walker now can only walk with a cane. He stated that his ambulatory function is declining for the last 3 to 4 months. Upon presentation patient initially was hypotensive with a blood pressure of 90s over 80 however after fluid resuscitation the systolic blood pressure increased to 170-180. The patient cannot elaborate any contributing factor to his diarrhea. He denied chills or fever. His lab work-up was significant for creatinine of 2.26. His creatinine was 1.27 on 05/27/2021 . He does not have leukocytosis or shift to the left. The patient had similar episode of diarrhea a 3 months ago which had improved on its own Allergies Allergy/AdvReac Type Severity Reaction Status Date / Time No Known Allergies Allergy ` Verified 07/25/21 09:26 Home Medications Medication Instructions Recorded Confirmed Type blood sugar diagnostic (OneTouch #100 ea 06/29/20 05/03/21 Rx Ultra Blue Test Strip) acetaminophen 325 mg tablet 650 mg PO Q4H PRN #30 tab 10/09/20 07/25/21 Rx finasteride 5 mg tablet (Proscar) 5 mg PO QAM #30 tab 10/09/20 07/25/21 Rx allopurinol 300 mg tablet 300 mg PO QAM 10/19/20 07/25/21 History aspirin 81 mg chewable tablet 81 mg PO QAM 10/19/20 07/25/21 History atorvastatin 40 mg tablet 40 mg PO HS #30 tab 10/29/20 07/25/21 Rx docusate sodium 100 mg capsule 100 mg PO Q12H PRN 11/14/20 07/25/21 History nystatin 100,000 unit/gram topical 1 applic TOPICAL BID 11/14/20 07/25/21 History cream sertraline 25 mg tablet 25 mg PO QAM 11/14/20 07/25/21 History insulin aspart U-100 100 unit/mL 3 unit SC AC #3 ml 11/20/20 07/25/21 Rx (3 mL) subcutaneous pen (Novolog Flexpen U-100 Insulin aspart) cholecalciferol (vitamin D3) 25 1,000 units PO QAM 12/16/20 07/25/21 History mcg (1,000 unit) capsule insulin glargine 100 unit/mL (3 8 unit SC QAM 12/16/20 07/25/21 History mL) subcutaneous pen (Lantus Solostar U-100 Insulin) polyethylene glycol 3350 17 gram 17 g PO Q12H PRN 12/16/20 07/25/21 History oral powder packet (Miralax) tamsulosin 0.4 mg capsule 0.4 mg PO BID17 12/16/20 07/25/21 History ascorbic acid (vitamin C) 250 mg 250 mg PO QAM 03/01/21 07/25/21 History tablet isosorbide mononitrate 60 mg 60 mg PO QAM 03/01/21 07/25/21 History tablet,extended release 24 hr metoprolol succinate 200 mg 200 mg PO QAM 03/01/21 07/25/21 History capsule sprinkle, ext. release 24 hr ropinirole 1 mg tablet 1 mg PO QAM 03/01/21 07/25/21 History cephalexin 500 mg capsule 500 mg PO QID 10 Days #40 cap 07/16/21 07/25/21 Rx losartan 50 mg tablet 50 mg PO QAM 07/16/21 07/25/21 History oxybutynin chloride 5 mg tablet 10 mg PO QAM 07/16/21 07/25/21 History potassium chloride 20 mEq 40 meq PO BID17 07/16/21 07/25/21 History tablet,extended release simethicone 125 mg chewable tablet 125 mg PO Q6H PRN 07/16/21 07/25/21 History Abc Complete Senior 50+ 1 tab PO HS 07/25/21 07/25/21 History cyanocobalamin (vitamin B-12) 1,000 mcg PO QAM 07/25/21 07/25/21 History 1,000 mcg tablet (Vitamin B-12) Past Med/Surg History Medical History Acute hypokalemia Acute hypotension BRIANNA (acute kidney injury) Anemia of chronic disease BPH with obstruction/lower urinary tract symptoms CKD (chronic kidney disease) Deep vein thrombosis (DVT) of left lower extremity Diabetes Elevated troponin Hypertension Hypertrophic obstructive cardiomyopathy (HOCM) Low back pain Mobitz (type) II atrioventricular block Proteinuria Sinus node dysfunction Skin carcinoma Spinal stenosis Subclavian vein thromboembolism, acute Syncope and collapse Surgical History H/O arthroscopy of knee History of cataract surgery Status post placement of cardiac pacemaker Family History Mother Ovarian cancer Diabetes Father Diabetes Unknown Coronary heart disease Denies family history of Prostate cancer Myocardial infarction Breast cancer Colorectal cancer Social History Smoking Status: Never smoker Second Hand Exposure: No; Hx Alcohol Use: No Hx Substance Use: No Preferred Language: Montserratian Communication Ability: Effective Renal Case Manager Required: No Beliefs That Will Affect Care: None marital status: / Current Living Situation: Personal Care Facility Current Living Situation Comment: home with brother, was just discharged from [facility] earlier today current occupational status: retired How many Children do You have: 0 Feels Safe at Home: Yes Safety Concerns: Feels Safe At This Time Childhood Exposure to Second-Hand Smoke: No caffeine: Yes Dental Care, Regularly: Yes Physical Activity Frequency: 1-2 Times per Week Seatbelt Use: always Sunscreen Use: No Assistive Devices: Walker Review of Systems Review of Systems: General: Complains of weakness mostly lower extremitites Neck: No tenderness no pain HEENT: No eye discharge no ear discharge Chest: No chest pain, no palpitation GI: Not distended, no nausea no vomiting Extremities: No edema no tenderness Neurology: No headache no weakness Psychiatric: No depression no anxiety Physical Exam Physical Exam: General: Alert oriented x3, well-nourished Neck: No lymphadenopathy, supple Respiratory: Lungs are clear to auscultation no chest abnormality Cardiovascular: Regular rate and rhythm no murmur no gallop vegetation Abdomen: Soft bowel sounds active Extremities: No edema no tenderness Skin: No jaundice no rash Neurology: Alert oriented x3 no acute distress moves all extremities Psychiatry mood and affect appropriate Results & Data Results & Data ([facility]) Vital Signs (Past 12 Hours) Vital Signs Temp Pulse Pulse Pulse Resp BP BP 07/25/21 17:48 73 177/96 H 07/25/21 17:00 36.4 C L 71 18 206/91 H 07/25/21 14:30 74 22 181/71 H 07/25/21 14:00 66 24 143/72 H 07/25/21 13:30 66 18 171/74 H 07/25/21 13:11 69 19 96/80 L 07/25/21 12:30 77 20 118/69 07/25/21 11:30 71 20 118/81 07/25/21 10:30 67 21 181/81 H 07/25/21 10:00 61 24 168/71 H 07/25/21 09:32 07/25/21 09:23 36.5 C 71 20 172/67 H Pulse Ox 07/25/21 17:48 07/25/21 17:00 98 07/25/21 14:30 95 07/25/21 14:00 98 07/25/21 13:30 98 07/25/21 13:11 100 07/25/21 12:30 92 07/25/21 11:30 93 07/25/21 10:30 98 07/25/21 10:00 99 07/25/21 09:32 98 07/25/21 09:23 98 Code Status & VTE Plan VTE Prophylaxis Plan VTE Prophylaxis will be ordered: No PG Care Time/CCT Total # of Minutes Spent Total Time Spent with Patient: Total time spent is greater than 50% in coordination of care (as documented) at patient's floor/unit and/or counseling patient: Coding Level of Care Code 63213 Initial Inpt Care Lvl 3 Diagnoses BRIANNA (acute kidney injury) N17.9 Vomiting and diarrhea R11.10; R19.7 Elevated troponin R77.8 Accelerated hypertension I10 Spinal stenosis M48.00 Diabetes 1.5, managed as type 2 E13.9
[2021-07-25] MEDS: INSULIN ASPART PER UNIT SC SCH ×2 (18:40→21:02)
[2021-07-25] MEDS: INSULIN GLARGINE SOLOSTAR 100 UNITS/ML 3 ML PEN SC SCH (18:40)
[2021-07-25] MEDS: SODIUM CHLORIDE 0.9% 1000ML 1,000 ML IV SCH (18:44)
[2021-07-25] MEDS: amLODIPine BESYLATE 5 MG TAB PO SCH (19:45)
[2021-07-25] MEDS: ATORVASTATIN 40 MG TAB PO SCH (19:45)
[2021-07-25 21:24] LABS: Adenovirus F 40/41 PCR Not Detected (NotDetected); Astrovirus PCR Not Detected (NotDetected); Campylobacter PCR Not Detected (NotDetected); Clostridium diff Toxin A/B PCR Not Detected (NotDetected); Cryptosporidium PCR Not Detected (NotDetected); Cyclospora cayetanensis PCR Not Detected (NotDetected); Entamoeba histolytica PCR Not Detected (NotDetected); Enteroaggregative E.coli(EAEC) Not Detected (NotDetected); Enteropathogenic E.coli (EPEC) Not Detected (NotDetected); Enterotoxigenic E.coli (ETEC) Not Detected (NotDetected); Giardia lamblia PCR Not Detected (NotDetected); Norovirus GI/GII PCR Not Detected (NotDetected); Plesiomonas shigelloides PCR Not Detected (NotDetected); Rotavirus A PCR Not Detected (NotDetected); Salmonella PCR Not Detected (NotDetected); Sapovirus PCR Not Detected (NotDetected); Shiga-like Toxin E.coli (STEC) Not Detected (NotDetected); Shigella/Enteroinvasive E.coli Not Detected (NotDetected); Vibrio cholerae PCR Not Detected (NotDetected); Vibrio species PCR Not Detected (NotDetected); Yersinia enterocolitica PCR Not Detected (NotDetected)
[2021-07-26] MEDS: SODIUM CHLORIDE 0.9% 1000ML 1,000 ML IV SCH ×3 (03:15→17:24)
[2021-07-26] MEDS: FINASTERIDE 5 MG TAB PO SCH (08:00)
[2021-07-26] MEDS: SERTRALINE HCL 50 MG TABLET PO SCH (08:00)
[2021-07-26] MEDS: rOPINIRole HCL 1 MG TABLET PO SCH (08:02)
[2021-07-26] MEDS: ISOSORBIDE MONO EXTENDED REL 60 MG TABCR PO SCH (08:02)
[2021-07-26] MEDS: allopurinoL 300 MG TAB PO SCH (08:02)
[2021-07-26] MEDS: OXYBUTYNIN CHLORIDE 5 MG TAB PO SCH (08:02)
[2021-07-26] MEDS: amLODIPine BESYLATE 5 MG TAB PO SCH (08:03)
[2021-07-26] MEDS: ASPIRIN 81 MG ECTAB PO SCH (08:03)
[2021-07-26] MEDS: METOPROLOL SUCC 50MG EXT REL TAB PO SCH (08:03)
[2021-07-26 08:38] LABS: Calcium 7.8 mg/dl (8.5-10.1); Creatinine Clr Calc Pharmacy 49.3 ml/min; Est GFR (African American) 51.3 ml/min; Est GFR (Non-African American) 44.3 ml/min; Potassium 3.1 mmol/L (3.5-5.1)
[2021-07-26] MEDS: INSULIN ASPART PER UNIT SC SCH ×4 (09:07→20:56)
[2021-07-26] MEDS: INSULIN GLARGINE SOLOSTAR 100 UNITS/ML 3 ML PEN SC SCH (09:08)
[2021-07-26] MEDS ORDERED: LORazepam 2 MG/1 ML VIAL IV PRN (13:12)
[2021-07-26] MEDS ORDERED: LORazepam 2 MG/1 ML VIAL IV ONE (13:15)
--- NOTE | 2021-07-26 18:35 | Hospitalist Progress Note ---
Date of Service July 26, 2021 Assessment & Plan (1) BRIANNA (acute kidney injury): Plan: Improving Most likely secondary to dehydration nausea vomiting and diarrhea Continue IV fluids saline at rate of 100 mL/h BMP tomorrow Hold losartan (2) Vomiting and diarrhea: Plan: Etiology unclear possibly viral No vomiting anymore however significant multiple loose bowel movements Started on diabetic diet Symptomatic management Doubt this is colostrum difficile infection (3) Elevated troponin: Plan: Elevated mildly Possibly secondary to acute kidney injury (4) Accelerated hypertension: Plan: Presented with a blood pressure 200 over Started on Norvasc Lopressor as needed (5) Spinal stenosis: Plan: The patient history of spinal stenosis and not currently complaining of worsening of ambulatory dysfunction, patient used to walk with a cane now he can only walk with a walker Proceed with MRI of the LS spine to evaluate for cord compression or nerve root impingement PT OT (6) Diabetes 1.5, managed as type 2: Plan: Continue sliding scale Admission and Anticipated Discharge Date Admission Date: July 25, 2021 Subjective Multiple loose frequent bowel movements, will check for C. difficile, Review of Systems Review of Systems: General: Complains of weakness mostly lower extremitites Neck: No tenderness no pain HEENT: No eye discharge no ear discharge Chest: No chest pain, no palpitation GI: Not distended, no nausea no vomiting Extremities: No edema no tenderness Neurology: No headache no weakness Psychiatric: No depression no anxiety Physical Exam Physical Exam: General: Alert oriented x3, well-nourished Neck: No lymphadenopathy, supple Respiratory: Lungs are clear to auscultation no chest abnormality Cardiovascular: Regular rate and rhythm no murmur no gallop vegetation Abdomen: Soft bowel sounds active Extremities: No edema no tenderness Skin: No jaundice no rash Neurology: Alert oriented x3 no acute distress moves all extremities Psychiatry mood and affect appropriate Results & Data Results & Data ([facility]) Vital Signs (Past 12 Hours) Vital Signs Temp Pulse Resp BP Pulse Ox 07/26/21 15:16 36.7 C 55 L 16 144/68 H 96 07/26/21 10:56 36.3 C L 55 L 15 136/70 97 07/26/21 07:36 36.4 C L 73 16 158/65 H 97 PG Care Time/CCT Total # of Minutes Spent Total Time Spent with Patient: Total time spent is greater than 50% in coordination of care (as documented) at patient's floor/unit and/or counseling patient: Coding Level of Care Code 28178 Subseq Hosp Care Lvl 3 Diagnoses BIRANNA (acute kidney injury) N17.9 Vomiting and diarrhea R11.10; R19.7 Elevated troponin R77.8 Accelerated hypertension I10 Spinal stenosis M48.00 Diabetes 1.5, managed as type 2 E13.9
[2021-07-26] MEDS: ATORVASTATIN 40 MG TAB PO SCH (19:43)
[2021-07-26] MEDS: DIPHENOXYLATE/ATROPINE 2.5/0.025MG TAB PO PRN (22:20)
[2021-07-27] MEDS: SODIUM CHLORIDE 0.9% 1000ML 1,000 ML IV SCH ×3 (00:52→18:28)
[2021-07-27] MEDS: INSULIN GLARGINE SOLOSTAR 100 UNITS/ML 3 ML PEN SC SCH (08:14)
[2021-07-27] MEDS: OXYBUTYNIN CHLORIDE 5 MG TAB PO SCH (08:15)
[2021-07-27] MEDS: ASPIRIN 81 MG ECTAB PO SCH (08:15)
[2021-07-27] MEDS: rOPINIRole HCL 1 MG TABLET PO SCH (08:16)
[2021-07-27] MEDS: DIPHENOXYLATE/ATROPINE 2.5/0.025MG TAB PO PRN (08:16)
[2021-07-27] MEDS: ISOSORBIDE MONO EXTENDED REL 60 MG TABCR PO SCH (08:16)
[2021-07-27] MEDS: amLODIPine BESYLATE 5 MG TAB PO SCH (08:17)
[2021-07-27] MEDS: METOPROLOL SUCC 50MG EXT REL TAB PO SCH (08:17)
[2021-07-27] MEDS: FINASTERIDE 5 MG TAB PO SCH (08:17)
[2021-07-27] MEDS: allopurinoL 300 MG TAB PO SCH (08:18)
[2021-07-27] MEDS: INSULIN ASPART PER UNIT SC SCH ×4 (08:32→21:25)
[2021-07-27] MEDS: SERTRALINE HCL 50 MG TABLET PO SCH (08:32)
[2021-07-27 09:50] LABS: BUN Creatinine Ratio 28.2 (10-20); Calcium 7.6 mg/dl (8.5-10.1); Creatinine Clr Calc Pharmacy 59.7 ml/min; Est GFR (African American) 64.6 ml/min; Est GFR (Non-African American) 55.7 ml/min; Potassium 3.2 mmol/L (3.5-5.1)
--- NOTE | 2021-07-27 11:46 | Magnetic Resonance Report ---
MRI OF THE LUMBAR SPINE WITHOUT IV CONTRAST CLINICAL HISTORY: Chronic low back pain. Falls. COMPARISON STUDY: CT of the lumbar spine dated 10/16/2020. TECHNIQUE: MRI of the lumbar spine is attempted. Various T1 and T2-weighted sequences were obtained i n the axial and sagittal planes. The patient could not complete the examination due to discomfort. No usable axial sequences were obtained. The acquired sequences are severely compromised by motion tremaine fact. FINDINGS: Lumbar spine: Vertebral body height is maintained throughout the lumbar spine. Marrow signal intensit y is markedly heterogeneous. There is minimal anterolisthesis at L4-L5. Alignment is otherwise preser jay. There is mild hyperlordosis. Anterior and lateral marginal osteophytes are seen throughout. Ther e is no marrow edema typical for acute fracture. Chronic degenerative endplate change is seen at all lumbar levels. Mild endplate edema is suggested at L3-L4 and L4-L5. There is no evidence of destructi ve bony lesion. Intervertebral discs: Degenerative disc desiccation and loss of height is seen throughout the lumbar spine. Loss of height is severe at L5-S1. Spinal cord: The imaged spinal cord is normal in morphology and signal intensity. The conus medullari s terminates at the level of L1. Note that these levels are only assessed on the sagittal sequences. L1-L2: The central canal and neural foramina appear patent. L2-L3: There is a small posterior disc osteophyte complex. No significant acquired compromise of the central canal is identified. There is at least mild bilateral neural foraminal stenosis. L3-L4: There is broad-based posterior disc bulge. This contributes to moderate to severe central bindu l stenosis with a minimum AP diameter of 4 mm. There is severe right and moderate left neural foramin al stenosis. L4-L5: There is broad-based posterior disc bulge with hypertrophy of the ligamentum flavum. There is severe central canal stenosis at this level with a minimum AP diameter of 1 to 2 mm. There is severe bilateral neural foraminal stenosis with probable impingement on the exiting bilateral L4 nerve roots . L5-S1: There is a posterior disc osteophyte complex. No significant acquired compromise of the centra l canal is identified. There is at least mild bilateral neural foraminal narrowing. Sacrum: The visualized sacrum is normal in morphology and signal intensity. Soft tissues: There is fatty atrophy of the paraspinous musculature. The retroperitoneal structures c ould not be evaluated. IMPRESSION: 1. Incomplete and severely motion degraded examination. 2. There is no marrow edema identified to suggest acute to subacute fracture. 3. Advanced lumbosacral spondylosis as above with moderate to severe central canal stenosis at L3-L4 and L4-L5. See discussion for detailed analysis. 4. Additional findings as above. Dictated: 07/27/2021 11:07 AM Transcribed: 07/27/2021 11:31 AM Maribell [id number] [facility] Electronically signed by: Nasim Clark M.D. 07/27/2021 11:44 AM
--- NOTE | 2021-07-27 17:56 | Hospitalist Progress Note ---
Date of Service July 27, 2021 Assessment & Plan (1) BRIANNA (acute kidney injury): Plan: Resolved Most likely secondary to dehydration nausea vomiting and diarrhea Stopped IV for BMP tomorrow Hold losartan (2) Vomiting and diarrhea: Plan: Etiology unclear possibly viral improving No vomiting anymore however significant multiple loose bowel movements Lomotil as needed negative for CD (3) Elevated troponin: Plan: Elevated mildly Possibly secondary to acute kidney injury (4) Accelerated hypertension: Plan: Presented with a blood pressure 200 /91 Started on Norvasc Lopressor as needed Much better control (5) Spinal stenosis: Plan: The patient history of spinal stenosis and now currently complaining of worsening of ambulatory dysfunction, patient used to walk with a cane now he can only walk with a walker MRI of the lumbar spine shows severe spinal canal stenosis -Needs to be followed as an outpatient PT OT (6) Diabetes 1.5, managed as type 2: Plan: Continue sliding scale Admission and Anticipated Discharge Date Admission Date: July 25, 2021 Subjective Multiple loose frequent bowel movements, will check for C. difficile, Review of Systems Review of Systems: General: Complains of weakness mostly lower extremitites Neck: No tenderness no pain HEENT: No eye discharge no ear discharge Chest: No chest pain, no palpitation GI: Not distended, no nausea no vomiting Extremities: No edema no tenderness Neurology: No headache no weakness Psychiatric: No depression no anxiety Physical Exam Physical Exam: General: Alert oriented x3, well-nourished Neck: No lymphadenopathy, supple Respiratory: Lungs are clear to auscultation no chest abnormality Cardiovascular: Regular rate and rhythm no murmur no gallop vegetation Abdomen: Soft bowel sounds active Extremities: No edema no tenderness Skin: No jaundice no rash Neurology: Alert oriented x3 no acute distress moves all extremities Psychiatry mood and affect appropriate Results & Data Results & Data ([facility]) Vital Signs (Past 12 Hours) Vital Signs Temp Pulse Resp BP BP Pulse Ox 07/27/21 14:50 36.7 C 52 L 14 144/78 H 97 07/27/21 11:06 36.9 C 54 L 16 147/65 H 96 07/27/21 07:22 36.7 C 55 L 18 166/72 H 97 PG Care Time/CCT Total # of Minutes Spent Total Time Spent with Patient: Total time spent is greater than 50% in coordination of care (as documented) at patient's floor/unit and/or counseling patient: Coding Level of Care Code 10487 Subseq Hosp Care Lvl 3 Diagnoses BRIANNA (acute kidney injury) N17.9 Vomiting and diarrhea R11.10; R19.7 Elevated troponin R77.8 Accelerated hypertension I10 Spinal stenosis M48.00 Diabetes 1.5, managed as type 2 E13.9
[2021-07-27] MEDS: POTASSIUM CHLORIDE CRTAB 20 MEQ TABCR PO SCH ×2 (18:28→21:18)
[2021-07-27] MEDS: ATORVASTATIN 40 MG TAB PO SCH (21:18)
[2021-07-28] MEDS: SODIUM CHLORIDE 0.9% 1000ML 1,000 ML IV SCH (02:03)
[2021-07-28] MEDS: SERTRALINE HCL 50 MG TABLET PO SCH (08:21)
[2021-07-28] MEDS: POTASSIUM CHLORIDE CRTAB 20 MEQ TABCR PO SCH ×2 (08:22→20:42)
[2021-07-28] MEDS: rOPINIRole HCL 1 MG TABLET PO SCH (08:22)
[2021-07-28] MEDS: OXYBUTYNIN CHLORIDE 5 MG TAB PO SCH (08:24)
[2021-07-28] MEDS: allopurinoL 300 MG TAB PO SCH (08:27)
[2021-07-28] MEDS: amLODIPine BESYLATE 5 MG TAB PO SCH (08:28)
[2021-07-28] MEDS: ASPIRIN 81 MG ECTAB PO SCH (08:41)
[2021-07-28] MEDS: FINASTERIDE 5 MG TAB PO SCH (08:42)
[2021-07-28] MEDS: ISOSORBIDE MONO EXTENDED REL 60 MG TABCR PO SCH (08:45)
[2021-07-28] MEDS: METOPROLOL SUCC 50MG EXT REL TAB PO SCH ×2 (08:52→11:46)
[2021-07-28 09:35] LABS: Calcium 7.4 mg/dl (8.5-10.1); Creatinine Clr Calc Pharmacy 71.2 ml/min; Est GFR (African American) 79.9 ml/min; Est GFR (Non-African American) 68.9 ml/min; Potassium 3.5 mmol/L (3.5-5.1)
[2021-07-28] MEDS: INSULIN GLARGINE SOLOSTAR 100 UNITS/ML 3 ML PEN SC SCH (09:35)
[2021-07-28] MEDS: INSULIN ASPART PER UNIT SC SCH ×4 (09:36→20:44)
[2021-07-28 10:09] LABS: Hematocrit (blood only) 27.1 % (42-52); Hemoglobin 9.2 g/dL (14.0-18.0); Mean Corpuscular Hemoglobin 30.5 pg (25-34); Mean Corpuscular Hgb Conc 33.9 g/dL (32-36); Mean Corpuscular Volume 89.7 fL (80-100); Nucleated RBC # (auto) 0.02 K/uL (0-0); Nucleated RBC % (auto) 0.2 %; Platelet Count 150 K/uL (130-400); RDW Coefficient of Variation 15.4 % (11.5-14.5); RDW Standard Deviation 50.2 fL (36.4-46.3); Red Blood Count 3.02 M/uL (4.7-6.1); White Blood Count 13.12 K/uL (4.8-10.8)
--- NOTE | 2021-07-28 18:54 | Hospitalist Progress Note ---
Date of Service July 28, 2021 Assessment & Plan (1) Vomiting and diarrhea: Plan: Etiology unclear possibly viral improving As per nurse no loose bowel movement today Lomotil as needed negative for diarrhea (2) BRIANNA (acute kidney injury): Plan: Resolved Most likely secondary to dehydration nausea vomiting and diarrhea Stopped IV for BMP tomorrow Hold losartan (3) Spinal stenosis: Plan: The patient history of spinal stenosis and now currently complaining of worsening of ambulatory dysfunction, patient used to walk with a cane now he can only walk with a walker MRI of the lumbar spine shows severe spinal canal stenosis -Needs to be followed as an outpatient with Dr. Sanchez -His brother is going to visit him tomorrow please let his brother knows PT OT (4) Accelerated hypertension: Plan: Presented with a blood pressure 200 /91 Started on Norvasc Lopressor as needed Much better control (5) Leukocytosis: Plan: Patient developed some leukocytosis today etiology unclear CBC tomorrow (6) Elevated troponin: Plan: Elevated mildly Possibly secondary to acute kidney injury (7) Diabetes 1.5, managed as type 2: Plan: Continue sliding scale Admission and Anticipated Discharge Date Admission Date: July 25, 2021 Subjective Doing much better much less loose bowel movement, patient can be discharged jose rrow if medically stable Review of Systems Review of Systems: General: Complains of weakness mostly lower extremitites Neck: No tenderness no pain HEENT: No eye discharge no ear discharge Chest: No chest pain, no palpitation GI: Not distended, no nausea no vomiting Extremities: No edema no tenderness Neurology: No headache no weakness Psychiatric: No depression no anxiety Physical Exam Physical Exam: General: Alert oriented x3, well-nourished Neck: No lymphadenopathy, supple Respiratory: Lungs are clear to auscultation no chest abnormality Cardiovascular: Regular rate and rhythm no murmur no gallop vegetation Abdomen: Soft bowel sounds active Extremities: No edema no tenderness Skin: No jaundice no rash Neurology: Alert oriented x3 no acute distress moves all extremities Psychiatry mood and affect appropriate Results & Data Results & Data ([facility]) Vital Signs (Past 12 Hours) Vital Signs Temp Pulse Resp BP Pulse Ox 07/28/21 13:58 36.8 C 50 L 16 137/61 96 07/28/21 11:48 36.6 C 59 L 20 157/73 H 98 07/28/21 08:00 36.7 C 56 L 22 157/63 H 97 PG Care Time/CCT Total # of Minutes Spent Total Time Spent with Patient: Total time spent is greater than 50% in coordination of care (as documented) at patient's floor/unit and/or counseling patient: Coding Level of Care Code 57167 Subseq Hosp Care Lvl 3 Diagnoses BRIANNA (acute kidney injury) N17.9 Vomiting and diarrhea R11.10; R19.7 Elevated troponin R77.8 Accelerated hypertension I10 Spinal stenosis M48.00 Diabetes 1.5, managed as type 2 E13.9 Leukocytosis D72.829
[2021-07-28] MEDS: ATORVASTATIN 40 MG TAB PO SCH (20:42)
[2021-07-29 06:33] LABS: Basophils # (auto) 0.03 K/uL (0-0.2); Basophils % (auto) 0.2 %; Eosinophils # (auto) 0.37 K/uL (0-0.5); Eosinophils % (auto) 2.8 %; Hematocrit (blood only) 25.8 % (42-52); Immature Granulocytes # (auto) 0.53 K/uL (0.00-0.02); Immature Granulocytes % (auto) 4.1 %; Lymphocytes # (auto) 1.74 K/uL (1.2-3.4); Lymphocytes % (auto) 13.4 %; Mean Corpuscular Hemoglobin 31.4 pg (25-34); Mean Corpuscular Hgb Conc 34.9 g/dL (32-36); Mean Corpuscular Volume 89.9 fL (80-100); Mean Platelet Volume 10.7 fL (7.4-10.4); Monocytes # (auto) 1.17 K/uL (0.11-0.59); Neutrophils # (auto) 9.18 K/uL (1.4-6.5); Neutrophils % (auto) 70.5 %; Nucleated RBC # (auto) 0.02 K/uL (0-0); Nucleated RBC % (auto) 0.1 %; Platelet Count 140 K/uL (130-400); RDW Coefficient of Variation 15.2 % (11.5-14.5); RDW Standard Deviation 49.8 fL (36.4-46.3); Red Blood Count 2.87 M/uL (4.7-6.1); White Blood Count 13.02 K/uL (4.8-10.8)
[2021-07-29] MEDS: INSULIN ASPART PER UNIT SC SCH ×4 (09:22→21:23)
[2021-07-29] MEDS: ISOSORBIDE MONO EXTENDED REL 60 MG TABCR PO SCH (09:24)
[2021-07-29] MEDS: OXYBUTYNIN CHLORIDE 5 MG TAB PO SCH (09:24)
[2021-07-29] MEDS: SERTRALINE HCL 50 MG TABLET PO SCH (09:24)
[2021-07-29] MEDS: allopurinoL 300 MG TAB PO SCH (09:24)
[2021-07-29] MEDS: POTASSIUM CHLORIDE CRTAB 20 MEQ TABCR PO SCH ×2 (09:24→21:25)
[2021-07-29] MEDS: METOPROLOL SUCC 50MG EXT REL TAB PO SCH (09:25)
[2021-07-29] MEDS: ASPIRIN 81 MG ECTAB PO SCH (09:25)
[2021-07-29] MEDS: FINASTERIDE 5 MG TAB PO SCH (09:25)
[2021-07-29] MEDS: rOPINIRole HCL 1 MG TABLET PO SCH (09:25)
[2021-07-29] MEDS: INSULIN GLARGINE SOLOSTAR 100 UNITS/ML 3 ML PEN SC SCH (09:26)
[2021-07-29] MEDS: amLODIPine BESYLATE 5 MG TAB PO SCH (10:27)
--- NOTE | 2021-07-29 21:05 | Hospitalist Progress Note ---
Date of Service July 29, 2021 Assessment & Plan (1) Vomiting and diarrhea: Plan: Likely was viral enteritis. Appears to be improved. (2) BRIANNA (acute kidney injury): Plan: Resolved Most likely secondary to dehydration nausea vomiting and diarrhea Creatinine improvedfollow periodically. Probably can resume losartan soon (3) Spinal stenosis: Plan: The patient history of spinal stenosis and now currently complaining of worsening of ambulatory dysfunction, patient used to walk with a cane now he can only walk with a walker MRI of the lumbar spine shows severe spinal canal stenosis -Needs to be followed as an outpatient with Dr. Sanchez -PT/OT eval and treatappears will need some form of rehab care (4) Accelerated hypertension: Plan: Blood pressure now showing reasonable control given the circumstances. Continue current medications (5) Leukocytosis: Plan: No overt signs or symptoms of bacterial infectionlikely related to physiologic stress from nausea vomiting diarrheafollow-up CBC in a.m. (6) Elevated troponin: Plan: Very mildlikely demand ischemia from physiologic stress from enteritisrepeat in a.m. to ensure that it has trended down (7) Diabetes 1.5, managed as type 2: Plan: Sugars have been adequate, continue current insulins Plan: PT/OT eval and treatanticipate need for rehab. DVT prophylaxis with Lovenox Admission and Anticipated Discharge Date Admission Date: July 25, 2021 Subjective Feeling better overall. Ate breakfastate most of the food, no nausea vomiting diarrhea no abdominal pain. Has not really been out of bed or walking muchhe notes that he was weaker prior to admission. Review of Systems Review of Systems: All systems reviewed & are unremarkable except as noted in HPI & below Physical Exam Physical Exam: In general he is awake and alert pleasant no distress. HEENT normocephalic atraumatic mucous membranes moist. Breathing unlabored no accessory muscle use good effort. Skin shows no rashes no pallor or icterus. Neuro without focal deficits. Results & Data Results & Data ([facility]) Vital Signs (Past 12 Hours) Vital Signs Temp Pulse Resp BP Pulse Ox 07/29/21 13:48 97.9 F 58 L 16 147/65 H 96 PG Care Time/CCT Total # of Minutes Spent Total Time Spent with Patient: Total time spent is greater than 50% in coordination of care (as documented) at patient's floor/unit and/or counseling patient: Coding Level of Care Code 43677 Subseq Hosp Care Lvl 2 Diagnoses Vomiting and diarrhea R11.10; R19.7 BRIANNA (acute kidney injury) N17.9 Spinal stenosis M48.00 Accelerated hypertension I10 Leukocytosis D72.829 Elevated troponin R77.8 Diabetes 1.5, managed as type 2 E13.9
[2021-07-29] MEDS: ATORVASTATIN 40 MG TAB PO SCH (21:25)
[2021-07-30 06:29] LABS: BUN Creatinine Ratio 17.4 (10-20); Calcium 7.8 mg/dl (8.5-10.1); Creatinine Clr Calc Pharmacy 67.9 ml/min; Est GFR (African American) 75.5 ml/min; Est GFR (Non-African American) 65.1 ml/min; Potassium 3.7 mmol/L (3.5-5.1)
[2021-07-30 06:38] LABS: Troponin I High Sensitivity 105.8 pg/ml (0-20)
[2021-07-30 06:50] LABS: Basophils # (auto) 0.02 K/uL (0-0.2); Basophils % (auto) 0.2 %; Eosinophils # (auto) 0.34 K/uL (0-0.5); Eosinophils % (auto) 2.8 %; Hematocrit (blood only) 27.3 % (42-52); Hemoglobin 9.1 g/dL (14.0-18.0); Immature Granulocytes # (auto) 0.43 K/uL (0.00-0.02); Immature Granulocytes % (auto) 3.6 %; Lymphocytes # (auto) 1.68 K/uL (1.2-3.4); Mean Corpuscular Hemoglobin 30.7 pg (25-34); Mean Corpuscular Hgb Conc 33.3 g/dL (32-36); Mean Corpuscular Volume 92.2 fL (80-100); Mean Platelet Volume 10.7 fL (7.4-10.4); Monocytes # (auto) 1.02 K/uL (0.11-0.59); Monocytes % (auto) 8.5 %; Neutrophils % (auto) 70.9 %; Nucleated RBC # (auto) 0.02 K/uL (0-0); Nucleated RBC % (auto) 0.1 %; Platelet Count 167 K/uL (130-400); RDW Coefficient of Variation 15.2 % (11.5-14.5); RDW Standard Deviation 51.2 fL (36.4-46.3); Red Blood Count 2.96 M/uL (4.7-6.1); White Blood Count 11.99 K/uL (4.8-10.8)
[2021-07-30] MEDS ORDERED: ENOXAPARIN INJ 40 MG/0.4 ML SYR SQ SCH (09:00)
[2021-07-30] MEDS: INSULIN GLARGINE SOLOSTAR 100 UNITS/ML 3 ML PEN SC SCH (09:13)
[2021-07-30] MEDS: INSULIN ASPART PER UNIT SC SCH ×3 (09:13→18:13)
[2021-07-30] MEDS: FINASTERIDE 5 MG TAB PO SCH (09:21)
[2021-07-30] MEDS: rOPINIRole HCL 1 MG TABLET PO SCH (09:21)
[2021-07-30] MEDS: POTASSIUM CHLORIDE CRTAB 20 MEQ TABCR PO SCH (09:21)
[2021-07-30] MEDS: ASPIRIN 81 MG ECTAB PO SCH (09:22)
[2021-07-30] MEDS: ISOSORBIDE MONO EXTENDED REL 60 MG TABCR PO SCH (09:22)
[2021-07-30] MEDS: OXYBUTYNIN CHLORIDE 5 MG TAB PO SCH (09:22)
[2021-07-30] MEDS: SERTRALINE HCL 50 MG TABLET PO SCH (09:22)
[2021-07-30] MEDS: METOPROLOL SUCC 50MG EXT REL TAB PO SCH (09:23)
[2021-07-30] MEDS: allopurinoL 300 MG TAB PO SCH (09:23)
[2021-07-30] MEDS: amLODIPine BESYLATE 5 MG TAB PO SCH (09:23)
--- NOTE | 2021-07-30 09:49 | Hospitalist Progress Note ---
Date of Service July 30, 2021 Assessment & Plan Admission and Anticipated Discharge Date Admission Date: July 25, 2021 Results & Data Results & Data ([facility]) Vital Signs (Past 12 Hours) Vital Signs Temp Pulse Resp BP BP Pulse Ox 07/30/21 09:21 62 07/30/21 07:14 36.6 C 54 L 14 156/84 H 94 07/29/21 21:56 36.7 C 51 L 18 155/60 H 99
--- NOTE | 2021-07-30 13:59 | XCELERA ---
[id number]
--- NOTE | 2021-07-30 14:08 | Discharge Summary ---
Date of Service July 30, 2021 Admission HPI Per Admitting Provider The patient is a 75-year-old male with a past medical history significant for chronic kidney disease stage IIIstage IV,hcm, previous TIAs, sick sinus syndrome status post pacemaker, nausea vomiting diarrhea started about 2 days ago. Patient lives by himself. He used to walk with a walker now can only walk with a cane. He stated that his ambulatory function is declining for the last 3 to 4 months. Upon presentation patient initially was hypotensive with a blood pressure of 90s over 80 however after fluid resuscitation the systolic blood pressure increased to 170-180. The patient cannot elaborate any contributing factor to his diarrhea. He denied chills or fever. His lab work-up was significant for creatinine of 2.26. His creatinine was 1.27 on 05/27/2021 . He does not have leukocytosis or shift to the left. The patient had similar episode of diarrhea a 3 months ago which had improved on its own Principal Diagnosis viral enteritis Discharge Exam Constitutional WD/WN, vitals as above Eyes PERRL, conjunctivae normal, anicteric sclerae Respiratory normal respiratory effort, lungs clear to auscultation Auscultation: no crackles, no rales, no rhonchi and no wheezes Cardiovascular Rate/Rhythm: regular rate and regular rhythm Heart Sounds: no gallop, no murmur and no cardiac rub Vessels: normal peripheral pulses; no JVD Extremities: no edema Gastrointestinal (Abdomen) Inspection/Auscultation: normal bowel sounds; abdomen not distended Percussion/Palpation: abdomen soft; abdomen nontender and no guarding Skin no rashes, warm and dry Neurologic PERRL, EOMI, accommodation nl, no face palsy, no dysarthria Psychiatric Orientation: alert and oriented x 3 Discharge Data Allergies Allergy/AdvReac Type Severity Reaction Status Date / Time No Known Allergies Allergy ` Verified 07/25/21 09:26 Consultations 07/25/21 14:55 ED Decision to Admit Stat Ordered Studies 07/25/21 11:37 CT abd pelvis wo con Stat 07/27/21 00:00 MR lumbar spine wo con Routine Hospital Course (1) Vomiting and diarrhea: Christopher Larkin is a 76y/o M who presented as concerns of several days of vomiting and diarrhea and was unable to tolerate eating or drinking for several days. Vomiting & Diarrhea: - Likely was viral enteritis. - Appears to be improved. Acute Kidney Injury: - Resolved - Most likely secondary to dehydration nausea vomiting and diarrhea - Creatinine improved - follow periodically Spinal stenosis: - The patient history of spinal stenosis and now currently complaining of worsening of ambulatory dysfunction, patient used to walk with a cane now he can only walk with a walker - MRI of the lumbar spine shows severe spinal canal stenosis -Needs to be followed as an outpatient with Dr. Sanchez - PT/OT eval and treat - appears will need some form of rehab care Elevated Troponin: - likely secondary to demand ischemia in the setting of LVH - Echo from 07/30 demonstrating no regional wall motion abnormalities, with moderate to severe LVH Diabetes: - Sugars have been adequately controlled - continue home insulin regimen (2) BRIANNA (acute kidney injury): (3) Spinal stenosis: (4) Accelerated hypertension: (5) Leukocytosis: (6) Elevated troponin: (7) Diabetes 1.5, managed as type 2: Total Time Total Time Spent Total Time Spent (In Minutes): <30 Discharge Plan Discharge Items Patient Disposition: Transfer [facility] Reason For Visit: DIARRHEA Discharge Diagnosis: viral enteritis Activity: Per Instructions section Non-emergency contact: Primary Care Provider Call non-emergency contact if: you have any medication questions, your symptoms worsen and you have a fever Follow-up/Referrals: [facility] [Primary Care Provider] - Diet: Carb Consistent or DM2 and Heart Healthy Addtl Attending Provider Instructions: Christopher Larkin is a 76y/o M who presented as concerns of several days of vomiting and diarrhea and was unable to tolerate eating or drinking for several days. During this hospitalization, he had continued improvement in his symptoms, and had improvement in his ability to tolerate eating and drinking. Additionally, during that work-up he had noticed kidney injury that appears to have been as a result of his dehydration and poor oral intake for several days, and this has nicely improved as well. Pending Studies at Discharge: No Stand-Alone Forms: My [facility] Skilled Items Patient informed of condition?: Yes DNR: No Discharge Level of Care: Skilled Communicable Disease: No Discharge Prognosis: Stable Lines: None Urinary Catheter: No Medications and DC Order Prescriptions: Continued (DME) OneTouch Ultra Blue Test Strip Strip See Dose Instructions .ROUTE .MEDSUPPLY Qty: 100 RF: 6 ascorbic acid (vitamin C) 250 mg tablet 250 mg PO QAM RF: 0 isosorbide mononitrate 60 mg tablet extended release 24 hr 60 mg PO QAM RF: 0 metoprolol succinate 200 mg capsule,sprinkle,ER 24hr 200 mg PO QAM RF: 0 ropinirole 1 mg tablet 1 mg PO QAM RF: 0 aspirin 81 mg tablet,chewable 81 mg PO QAM RF: 0 allopurinol 300 mg tablet 300 mg PO QAM RF: 0 atorvastatin 40 mg Tablet 40 mg PO HS Qty: 30 RF: 0 polyethylene glycol 3350 [Miralax] 17 gram powder in packet 17 g PO Q12H PRN (Reason: Constipation) RF: 0 cholecalciferol (vitamin D3) 25 mcg (1,000 unit) capsule 1,000 units PO QAM RF: 0 Lantus Solostar U-100 Insulin 100 unit/mL (3 mL) insulin pen 8 unit SC QAM RF: 0 tamsulosin 0.4 mg capsule 0.4 mg PO BID17 RF: 0 losartan 50 mg Tablet 50 mg PO QAM RF: 0 simethicone 125 mg Tablet,Chewable 125 mg PO Q6H PRN (Reason: GAS RELIEF) RF: 0 oxybutynin chloride 5 mg Tablet 10 mg PO QAM RF: 0 potassium chloride 20 mEq Tablet Extended Release 40 meq PO BID17 RF: 0 cephalexin 500 mg capsule 500 mg PO QID 10 Days Qty: 40 RF: 0 acetaminophen 325 mg Tablet 650 mg PO Q4H PRN (Reason: [place]/fever/pain) Qty: 30 RF: 0 finasteride [Proscar] 5 mg Tablet 5 mg PO QAM Qty: 30 RF: 0 nystatin 100,000 unit/gram Cream 1 applic TOPICAL BID RF: 0 sertraline 25 mg Tablet 25 mg PO QAM RF: 0 docusate sodium 100 mg capsule 100 mg PO Q12H PRN (Reason: Constipation) RF: 0 insulin aspart U-100 [Novolog Flexpen U-100 Insulin] 100 unit/mL (3 mL) Insulin Pen 3 unit SC AC Qty: 3 RF: 0 Abc Complete Senior 50+ 1 tab PO HS RF: 0 cyanocobalamin (vitamin B-12) [Vitamin B-12] 1,000 mcg Tablet 1,000 mcg PO QAM RF: 0 Discharge Orders: Discharge Order (Routine); Ordered 04/29/22 Ordered By: Gato Butler Admission Data Admit Date/Time: 07/25/21 14:19 Attending Provider: Kiran Rodriguez Admit Provider: Alexis Sylvester [facility] Other Providers: Toni Nomran ; [facility] ; Alexis Sylvester Other Interventions: Discharge Summary Assessment (RN) Last Done: 07/30/21 13:52 Supervising Physician Co-Signing Physician Notes I personally examined the patient and verified all nickerson points of history and exam, discussed case, and agree with decision making with Dr Butler resting comfortably. vitals noted nad at rest breathing unlabored no accessory muscles good effort skin no rashes no pallor or icterus viral GE/dehydration/BRIANNA - improved LVH - elevated trop from this. no ACS weakness/deconditioning - stable for SNF/rehab emphasis Resident Activity Tracking Resident Involvement: Resident Care Provided Care Provided: Adult Hospital Medicine
--- NOTE | 2021-07-30 17:36 | Billing Data ---
Date of Service July 30, 2021 Coding Level of Care Code D/C DAY MANAGEMENT <30 MINS
--- NOTE | 2021-07-30 17:36 | Billing Data ---
Date of Service July 30, 2021 Coding Level of Care Code D/C DAY MANAGEMENT <30 MINS
== END 2021-07-30 19:24 | DRG 392 ==
LOC: ED 09:03 → 3N 14:19 → SUATTDRO 14:19 → 3N 16:18

== ENCOUNTER 2021-09-07 13:15 | Inpatient (IN) ==
[2021-09-07] MEDS ORDERED: SODIUM CHLORIDE 0.9% 1000ML 1,000 ML IV STA (14:08)
--- NOTE | 2021-09-07 14:15 | Emergency Department Note ---
History of Present Illness General Chief complaint: Lethargic Time Seen by Provider: 09/07/21 14:00 History of Present Illness 76-year-old male presents to the ED with a chief complaint of some trouble breathing. He also reports some diarrhea for the past week as well as nausea and vomiting. The patient presented from [facility]. They called EMS for low blood pressure. Blood pressure was reportedly normal for EMS. Unsure if the patient is a reliable historian as the patient states that he lives alone. Denies any specific cough. Denies any pain. No additional complaints at this time. Home Medications Medication Instructions Recorded Confirmed Type blood sugar diagnostic (OneTouch #100 ea 06/29/20 09/07/21 Rx Ultra Blue Test Strip) acetaminophen 325 mg tablet 650 mg PO Q4H PRN #30 tab 10/09/20 09/07/21 Rx finasteride 5 mg tablet (Proscar) 5 mg PO QAM #30 tab 10/09/20 09/07/21 Rx allopurinol 300 mg tablet 300 mg PO QAM 10/19/20 09/07/21 History aspirin 81 mg chewable tablet 81 mg PO QAM 10/19/20 09/07/21 History atorvastatin 40 mg tablet 40 mg PO HS #30 tab 10/29/20 09/07/21 Rx docusate sodium 100 mg capsule 100 mg PO Q12H PRN 11/14/20 09/07/21 History nystatin 100,000 unit/gram topical 1 applic TOPICAL BID 11/14/20 09/07/21 History cream sertraline 25 mg tablet 25 mg PO QAM 11/14/20 09/07/21 History insulin aspart U-100 100 unit/mL 3 unit SC AC #3 ml 11/20/20 09/07/21 Rx (3 mL) subcutaneous pen (Novolog Flexpen U-100 Insulin aspart) cholecalciferol (vitamin D3) 25 1,000 units PO QAM 12/16/20 09/07/21 History mcg (1,000 unit) capsule insulin glargine 100 unit/mL (3 8 unit SC QAM 12/16/20 09/07/21 History mL) subcutaneous pen (Lantus Solostar U-100 Insulin) polyethylene glycol 3350 17 gram 17 g PO Q12H PRN 12/16/20 09/07/21 History oral powder packet (Miralax) tamsulosin 0.4 mg capsule 0.4 mg PO BID17 12/16/20 09/07/21 History ascorbic acid (vitamin C) 250 mg 250 mg PO QAM 03/01/21 09/07/21 History tablet isosorbide mononitrate 60 mg 60 mg PO QAM 03/01/21 09/07/21 History tablet,extended release 24 hr metoprolol succinate 200 mg 200 mg PO QAM 03/01/21 09/07/21 History capsule sprinkle, ext. release 24 hr ropinirole 1 mg tablet 1 mg PO QAM 03/01/21 09/07/21 History losartan 50 mg tablet 50 mg PO QAM 07/16/21 09/07/21 History oxybutynin chloride 5 mg tablet 10 mg PO QAM 07/16/21 09/07/21 History potassium chloride 20 mEq 40 meq PO BID17 07/16/21 09/07/21 History tablet,extended release simethicone 125 mg chewable tablet 125 mg PO Q6H PRN 07/16/21 09/07/21 History Abc Complete Senior 50+ 1 tab PO HS 07/25/21 09/07/21 History cyanocobalamin (vitamin B-12) 1,000 mcg PO QAM 07/25/21 09/07/21 History 1,000 mcg tablet (Vitamin B-12) Allergies Allergy/AdvReac Type Severity Reaction Status Date / Time No Known Allergies Allergy ` Verified 09/07/21 16:27 Past Med/Surg History Medical History Acute hypokalemia Acute hypotension BRIANNA (acute kidney injury) Anemia of chronic disease BPH with obstruction/lower urinary tract symptoms CKD (chronic kidney disease) Deep vein thrombosis (DVT) of left lower extremity Diabetes Elevated troponin Hypertension Hypertrophic obstructive cardiomyopathy (HOCM) Low back pain Mobitz (type) II atrioventricular block Proteinuria Sinus node dysfunction Skin carcinoma Spinal stenosis Subclavian vein thromboembolism, acute Syncope and collapse Surgical History H/O arthroscopy of knee History of cataract surgery Status post placement of cardiac pacemaker Family History Mother Ovarian cancer Diabetes Father Diabetes Unknown Coronary heart disease Denies family history of Prostate cancer Myocardial infarction Breast cancer Colorectal cancer Social History Smoking Status: Never smoker Second Hand Exposure: No; Hx Alcohol Use: No Hx Substance Use: No Preferred Language: Hungarian Communication Ability: Effective Breaster Required: No Beliefs That Will Affect Care: None marital status: / Current Living Situation: Personal Care Facility Current Living Situation Comment: home with brother, was just discharged from [facility] earlier today current occupational status: retired How many Children do You have: 0 Feels Safe at Home: Yes Childhood Exposure to Second-Hand Smoke: No caffeine: Yes Dental Care, Regularly: Yes Physical Activity Frequency: 1-2 Times per Week Seatbelt Use: always Sunscreen Use: No Assistive Devices: Cane Review of Systems A total of 10 systems reviewed and were otherwise negative Physical Exam Vital Signs Vital Signs - 24 hr 09/07/21 13:05 09/07/21 13:53 09/07/21 14:00 Temperature 36.5 C Temperature Source Oral Pulse Rate 73 51 L 50 L Pulse Rate from SpO2 Sensor 51 L 50 L Pulse Rhythm Regular Pulse Strength Normal Respiratory Rate 16 21 15 Respiratory Effort / Characteristics Non-Labored Respiratory Depth Normal Blood Pressure 119/71 Blood Pressure Mean 87 Pulse Oximetry 99 98 98 Oxygen Delivery Method Room Air Sepsis Recent Fever Within 48 Hours No Sepsis New/Unexplained Change in Mental Status No Sepsis Action Taken by Nursing No Action Required 09/07/21 14:20 09/07/21 14:30 09/07/21 15:00 Temperature Temperature Source Pulse Rate 51 L 50 L 50 L Pulse Rate from SpO2 Sensor 51 L 50 L 50 L Pulse Rhythm Pulse Strength Respiratory Rate 23 15 19 Respiratory Effort / Characteristics Respiratory Depth Blood Pressure 135/65 135/65 151/68 H Blood Pressure Mean 88 88 95 Pulse Oximetry 99 99 99 Oxygen Delivery Method Sepsis Recent Fever Within 48 Hours Sepsis New/Unexplained Change in Mental Status Sepsis Action Taken by Nursing CONSTITUTIONAL/VITAL SIGNS: Reviewed / noted above. GENERAL: Non-toxic in appearance. INTEGUMENTARY: Warm, dry, and [place]. HEAD: Normocephalic. EYES: without scleral icterus or trauma. ENT/OROPHARYNX: clear and dry. LYMPHADENOPATHY/NECK: Is supple without lymphadenopathy or meningismus. RESPIRATORY: Clear to auscultation bilaterally. No increased work of breathing. CARDIOVASCULAR: Regular rate and rhythm. GI/ABDOMEN: Soft and somewhat distended and tympanitic. No organomegaly or pulsatile mass. EXTREMITIES: Warm and well perfused. BACK: No CVA tenderness. NEUROLOGICAL: Intact without focal deficits. PSYCHIATRIC: normal affect. MUSCULOSKELETAL: Normally developed with good muscle tone. TRIAGE NURSING DOCUMENTATION REVIEWED. Course Administered Medications Discontinued Medications Sodium Chloride (Nss 1000ml) 1,000 mls @ 999 mls/hr IV .Q1H1M STA Stop: 09/07/21 15:08 Last Admin: 09/07/21 14:25 Dose: 999 mls/hr Documented by: [id number] Medical Decision Making Differential Diagnosis Differential includes acute coronary syndrome, myocardial infarction, CVA, TIA, anemia, infection, pneumonia, UTI, pyelonephritis, poor nutrition, dehydration, electrolyte disturbance,hypoglycemia. Medical Records Attestation: I reviewed the patient's medical records. Home Medications Current Medication List: was personally reviewed by me Laboratory Data Attestation: I reviewed the patient's lab results. Result diagrams: 09/07/21 13:51 09/07/21 13:51 Lab Results 09/07/21 09/07/21 09/07/21 Range/Units 13:51 13:51 14:19 WBC 6.53 (4.8-10.8) K/uL RBC 3.49 L (4.7-6.1) M/uL Hgb 10.7 L (14.0-18.0) g/dL Hct 32.5 L (42-52) % MCV 93.1 (80-100) fL MCH 30.7 (25-34) pg MCHC 32.9 (32-36) g/dL RDW Std Deviation 55.8 H (36.4-46.3) fL RDW Coeff of Nona 16.4 H (11.5-14.5) % Plt Count 155 (130-400) K/uL MPV 11.8 H (7.4-10.4) fL Immature Gran % (Auto) 0.3 % Neut % (Auto) 65.5 % Lymph % (Auto) 19.3 % [place] % (Auto) 9.0 % Eos % (Auto) 5.7 % Baso % (Auto) 0.2 % Neut # (Auto) 4.28 (1.4-6.5) K/uL Lymph # (Auto) 1.26 (1.2-3.4) K/uL [place] # (Auto) 0.59 (0.11-0.59) K/uL Eos # (Auto) 0.37 (0-0.5) K/uL Baso # (Auto) 0.01 (0-0.2) K/uL Immature Gran # (Auto) 0.02 (0.00-0.02) K/uL Sodium 142 (136-145) mmol/L Potassium 4.1 (3.5-5.1) mmol/L Chloride 121 H (98-107) mmol/L Carbon Dioxide 14 L (21-32) mmol/L Anion Gap 7 (3-11) BUN 48 H (6-23) mg/dl Creatinine 1.92 H (0.6-1.4) mg/dl Est Cr Clr Drug Dosing 35.2 ml/min Est GFR ( Amer) 38.1 ml/min Est GFR (Non-Af Amer) 32.8 ml/min BUN/Creatinine Ratio 25.0 H (10-20) Glucose 182 H (70-99(Fasting)) mg/dl Lactate (0.4-2.0) mmol/L Calcium 9.4 (8.5-10.1) mg/dl Total Bilirubin 0.7 (0.2-1.0) mg/dl AST 20 (13-39) U/L ALT 8 (7-52) U/L Alkaline Phosphatase 100 (34-104) U/L Troponin I High Sens 197.4 H* (0-20) pg/ml Total Protein 6.5 (6.0-8.3) gm/dl Albumin 3.6 (3.4-5.0) gm/dl Globulin 2.9 (2.5-4.0) gm/dl Albumin/Globulin Ratio 1.2 (0.9-2) Lipase 11 (11-82) U/L Urine Color Urine Appearance (Clear) Urine pH (4.5-7.5) Ur Specific [place] (1.000-1.030) Urine Protein (Negative) Urine Glucose (UA) (Negative) Urine Ketones (Negative) Urine Blood (Negative) Urine Nitrite (Negative) Urine Bilirubin (Negative) Urine Urobilinogen (Negative) Ur Leukocyte Esterase (Negative) Urine WBC (Auto) (0-5) /hpf Urine RBC (Auto) (0-4) /hpf U Hyaline Cast (Auto) (0-5) /lpf U Epithel Cells (Auto) (0-5) /lpf Urine Bacteria (Auto) (Negative) SARS-CoV-2, RNA, NAAT (NEGATIVE) Blood Type O Positive Antibody Screen NEGATIVE 09/07/21 09/07/21 09/07/21 Range/Units 14:19 14:21 14:52 WBC (4.8-10.8) K/uL RBC (4.7-6.1) M/uL Hgb (14.0-18.0) g/dL Hct (42-52) % MCV (80-100) fL MCH (25-34) pg MCHC (32-36) g/dL RDW Std Deviation (36.4-46.3) fL RDW Coeff of Nona (11.5-14.5) % Plt Count (130-400) K/uL MPV (7.4-10.4) fL Immature Gran % (Auto) % Neut % (Auto) % Lymph % (Auto) % [place] % (Auto) % Eos % (Auto) % Baso % (Auto) % Neut # (Auto) (1.4-6.5) K/uL Lymph # (Auto) (1.2-3.4) K/uL [place] # (Auto) (0.11-0.59) K/uL Eos # (Auto) (0-0.5) K/uL Baso # (Auto) (0-0.2) K/uL Immature Gran # (Auto) (0.00-0.02) K/uL Sodium (136-145) mmol/L Potassium (3.5-5.1) mmol/L Chloride (98-107) mmol/L Carbon Dioxide (21-32) mmol/L Anion Gap (3-11) BUN (6-23) mg/dl Creatinine (0.6-1.4) mg/dl Est Cr Clr Drug Dosing ml/min Est GFR ( Amer) ml/min Est GFR (Non-Af Amer) ml/min BUN/Creatinine Ratio (10-20) Glucose (70-99(Fasting)) mg/dl Lactate 0.9 (0.4-2.0) mmol/L Calcium (8.5-10.1) mg/dl Total Bilirubin (0.2-1.0) mg/dl AST (13-39) U/L ALT (7-52) U/L Alkaline Phosphatase (34-104) U/L Troponin I High Sens (0-20) pg/ml Total Protein (6.0-8.3) gm/dl Albumin (3.4-5.0) gm/dl Globulin (2.5-4.0) gm/dl Albumin/Globulin Ratio (0.9-2) Lipase (11-82) U/L Urine Color Yellow Urine Appearance Clear (Clear) Urine pH 5.0 (4.5-7.5) Ur Specific [place] 1.018 (1.000-1.030) Urine Protein 2+ H (Negative) Urine Glucose (UA) Negative (Negative) Urine Ketones Negative (Negative) Urine Blood Trace H (Negative) Urine Nitrite Positive A (Negative) Urine Bilirubin Negative (Negative) Urine Urobilinogen Negative (Negative) Ur Leukocyte Esterase Negative (Negative) Urine WBC (Auto) 1-5 (0-5) /hpf Urine RBC (Auto) 0-4 (0-4) /hpf U Hyaline Cast (Auto) 1-5 (0-5) /lpf U Epithel Cells (Auto) 0-5 (0-5) /lpf Urine Bacteria (Auto) 1+ H (Negative) SARS-CoV-2, RNA, NAAT NEGATIVE (NEGATIVE) Blood Type Antibody Screen Imaging Data Radiologist's Impression: Abdomen/Pelvis CT 09/07/21 14:[address] WITHOUT CONTRAST CT DOSE: 1243.14 mGycm HISTORY: Acute generalized abdominal pain with nausea and vomiting. abd distention, n/v TECHNIQUE: Multiaxial CT images of the abdomen and pelvis were performed without contrast. A dose lowering technique was utilized adhering to the principles of ALARA. COMPARISON STUDY: CT abdomen and pelvis 07/25/2021 FINDINGS: Limited study secondary to upper extremity positioning and lack of IV contrast. Cardiomegaly with partially imaged pacer leads and coronary artery calcifications. Mild dilation of the ascending thoracic aorta, 4.3 x 4.3 cm. Trace right pleural effusion. Mild subsegmental bibasilar atelectasis with mild right hemidiaphragmatic elevation. There is no pneumatosis or pneumoperitoneum identified. The unenhanced spleen, moderately atrophic pancreas and adrenal glands are unremarkable. 1.6 cm cystic structure within the pancreatic neck is redemonstr ated, possibly a sidebranch IPMN. Unchanged appearance of the gallbladder with mild distention. The unenhanced liver is unremarkable. Mild nonspecific bilateral perinephric stranding of the kidneys with mild cortical thinning. Renal vascular calcifications are present on the left. Unchanged 1.5 cm cyst of the inferior pole right kidney. No hydronephrosis. Urinary bladder wall thickening with partial distention. Prostamegaly. Atherosclerosis of the abdominal aorta without aneurysm. There is no lymphadenopathy identified. No small bowel obstruction. There is persistent gaseous distention of the large bowel with air-fluid levels, progressed from before 21/07/2021 study. Transverse dimension of the large bowel measures up to 10 cm, previously 9.2 cm. No transition point is identified. Mild wall thickening of the tortuous sigmoid colon on image 248 is likely secondary to partial distention. Small amount of layering hyperdense material noted within the cecum and rectum. Normal appendix. Unremarkable soft tissues. Degenerative changes of the spine, pelvis and hips. No acute fracture is identified. IMPRESSION: 1. Fluid-filled dilated colon and rectum has mildly progressed compared to the 07/25/2021 study, now with the large bowel measuring up to 10 cm transversely. No volvulus or obstruction. 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 2. Resolution of the previously noted small right rectus sheath hematoma. 3. Trace right pleural effusion. 4. Additional findings as above. ACT 112: Negative or not required by law. The above report was generated using voice recognition software. It may contain grammatical, syntax or spelling errors. Electronically signed by: Tariq Lo M.D. 09/07/2021 4:10 PM ECG Data Attestation: I personally reviewed and interpreted this ECG as follows: Additional Comments: Twelve-lead EKG: Per my interpretation shows an atrial paced rhythm at a rate of 54. Right bundle branch block. No ST elevation. Normal QTC. No PVCs. MDM Narrative Patient presents for decreased blood pressure from the local senior care. He reports some trouble breathing as well as a little diarrhea, nausea and vomiting. His abdomen is tympanitic on exam and his tongue is dry. Vital signs here are stable. He is in no distress. Breathing comfortably. Twelve-lead EKG shows a paced atrial rhythm. CT scan of the abdomen pelvis shows dilated colon and rectum as well as a large bowel measuring up to 10 cm transversely. Fi ndings suggestive of a diarrheal illness and colonic pseudoobstruction. The patient's troponin is elevated at 197. BUN is 48 and creatinine is 1.19. Glucose is 182. COVID test is negative. The patient was given a liter of normal saline IV. A enema tube was placed to relieve some of the colonic air which successfully decompressed the abdomen clinically. Because of the patient's acute kidney injury and elevated troponin, he will be seen by the hospitalist for further inpatient evaluation and care. Impression & Plan Nausea vomiting and diarrhea, Elevated troponin, BRIANNA (acute kidney injury), Cece syndrome, Acute dehydration Discharge Plan Visit Data Chief Complaint: Lethargic ED Provider: Zuhair Oliveira Discharge Problem: Nausea vomiting and diarrhea, Elevated troponin, BRIANNA (acute kidney injury), [place] syndrome, Acute dehydration Forms Stand Alone Forms: [facility] Prescriptions Prescriptions: No Action (DME) OneTouch Ultra Blue Test Strip Strip See Dose Instructions .ROUTE .MEDSUPPLY Qty: 100 RF: 6 ascorbic acid (vitamin C) 250 mg tablet 250 mg PO QAM RF: 0 isosorbide mononitrate 60 mg tablet extended release 24 hr 60 mg PO QAM RF: 0 metoprolol succinate 200 mg capsule,sprinkle,ER 24hr 200 mg PO QAM RF: 0 ropinirole 1 mg tablet 1 mg PO QAM RF: 0 aspirin 81 mg tablet,chewable 81 mg PO QAM RF: 0 allopurinol 300 mg tablet 300 mg PO QAM RF: 0 atorvastatin 40 mg Tablet 40 mg PO HS Qty: 30 RF: 0 polyethylene glycol 3350 [Miralax] 17 gram powder in packet 17 g PO Q12H PRN (Reason: Constipation) RF: 0 cholecalciferol (vitamin D3) 25 mcg (1,000 unit) capsule 1,000 units PO QAM RF: 0 insulin glargine [Lantus Solostar U-100 Insulin] 100 unit/mL (3 mL) insulin pen 8 unit SC QAM RF: 0 tamsulosin 0.4 mg capsule 0.4 mg PO BID17 RF: 0 losartan 50 mg Tablet 50 mg PO QAM RF: 0 simethicone 125 mg Tablet,Chewable 125 mg PO Q6H PRN (Reason: GAS RELIEF) RF: 0 oxybutynin chloride 5 mg Tablet 10 mg PO QAM RF: 0 potassium chloride 20 mEq Tablet Extended Release 40 meq PO BID17 RF: 0 acetaminophen 325 mg Tablet 650 mg PO Q4H PRN (Reason: [place]/fever/pain) Qty: 30 RF: 0 finasteride [Proscar] 5 mg Tablet 5 mg PO QAM Qty: 30 RF: 0 nystatin 100,000 unit/gram Cream 1 applic TOPICAL BID RF: 0 sertraline 25 mg Tablet 25 mg PO QAM RF: 0 docusate sodium 100 mg capsule 100 mg PO Q12H PRN (Reason: Constipation) RF: 0 insulin aspart U-100 [Novolog Flexpen U-100 Insulin] 100 unit/mL (3 mL) Insulin Pen 3 unit SC AC Qty: 3 RF: 0 Abc Complete Senior 50+ 1 tab PO HS RF: 0 cyanocobalamin (vitamin B-12) [Vitamin B-12] 1,000 mcg Tablet 1,000 mcg PO QAM RF: 0 Referrals Referrals: [facility] [Primary Care Provider] -
[2021-09-07 14:58] LABS: Basophils # (auto) 0.01 K/uL (0-0.2); Basophils % (auto) 0.2 %; Eosinophils # (auto) 0.37 K/uL (0-0.5); Eosinophils % (auto) 5.7 %; Hematocrit (blood only) 32.5 % (42-52); Hemoglobin 10.7 g/dL (14.0-18.0); Immature Granulocytes # (auto) 0.02 K/uL (0.00-0.02); Immature Granulocytes % (auto) 0.3 %; Lymphocytes # (auto) 1.26 K/uL (1.2-3.4); Lymphocytes % (auto) 19.3 %; Mean Corpuscular Hemoglobin 30.7 pg (25-34); Mean Corpuscular Hgb Conc 32.9 g/dL (32-36); Mean Corpuscular Volume 93.1 fL (80-100); Mean Platelet Volume 11.8 fL (7.4-10.4); Monocytes # (auto) 0.59 K/uL (0.11-0.59); Neutrophils # (auto) 4.28 K/uL (1.4-6.5); Neutrophils % (auto) 65.5 %; Platelet Count 155 K/uL (130-400); RDW Coefficient of Variation 16.4 % (11.5-14.5); RDW Standard Deviation 55.8 fL (36.4-46.3); Red Blood Count 3.49 M/uL (4.7-6.1); White Blood Count 6.53 K/uL (4.8-10.8)
[2021-09-07 15:08] LABS: Albumin Globulin Ratio 1.2 (0.9-2); Albumin Level 3.6 gm/dl (3.4-5.0); Bilirubin,Total 0.7 mg/dl (0.2-1.0); Calcium 9.4 mg/dl (8.5-10.1); Creatinine Clr Calc Pharmacy 35.2 ml/min; Est GFR (African American) 38.1 ml/min; Est GFR (Non-African American) 32.8 ml/min; Globulin 2.9 gm/dl (2.5-4.0); Potassium 4.1 mmol/L (3.5-5.1); Total Protein 6.5 gm/dl (6.0-8.3)
[2021-09-07 15:19] LABS: Troponin I High Sensitivity 197.4 pg/ml (0-20)
[2021-09-07 15:39] LABS: Appearance Urine Clear (Clear); Bacteria Urine Automated 1+ (Negative); Bilirubin Urine Negative (Negative); Blood Urine Trace (Negative); Color Urine Yellow; Epithelial Cell Urine Auto 0-5 /lpf (0-5); Glucose Urine UA Negative (Negative); Ketones Urine Negative (Negative); Leukocyte Esterase Urine Negative (Negative); Nitrite Urine Positive (Negative); Protein Urine 2+ (Negative); RBC Urine Automated 0-4 /hpf (0-4); Specific Gravity Urine 1.018 (1.000-1.030); Urobilinogen Urine Negative (Negative)
--- NOTE | 2021-09-07 16:11 | CT Scan Report ---
ABDOMEN AND PELVIS CT WITHOUT CONTRAST CT DOSE: 1243.14 mGycm HISTORY: Acute generalized abdominal pain with nausea and vomiting. abd distention, n/v TECHNIQUE: Multiaxial CT images of the abdomen and pelvis were performed without contrast. A dose lo wering technique was utilized adhering to the principles of ALARA. COMPARISON STUDY: CT abdomen and pelvis 07/25/2021 FINDINGS: Limited study secondary to upper extremity positioning and lack of IV contrast. Cardiomegal y with partially imaged pacer leads and coronary artery calcifications. Mild dilation of the ascendin g thoracic aorta, 4.3 x 4.3 cm. Trace right pleural effusion. Mild subsegmental bibasilar atelectasis with mild right hemidiaphragmatic elevation. There is no pneumatosis or pneumoperitoneum identified. The unenhanced spleen, moderately atrophic pancreas and adrenal glands are unremarkable. 1.6 cm cysti c structure within the pancreatic neck is redemonstrated, possibly a sidebranch IPMN. Unchanged appea rajan of the gallbladder with mild distention. The unenhanced liver is unremarkable. Mild nonspecific bilateral perinephric stranding of the kidneys with mild cortical thinning. Renal va scular calcifications are present on the left. Unchanged 1.5 cm cyst of the inferior pole right kidne y. No hydronephrosis. Urinary bladder wall thickening with partial distention. Prostamegaly. Atherosc lerosis of the abdominal aorta without aneurysm. There is no lymphadenopathy identified. No small bowel obstruction. There is persistent gaseous distention of the large bowel with air-fluid levels, progressed from before 21/07/2021 study. Transverse dimension of the large bowel measures up t o 10 cm, previously 9.2 cm. No transition point is identified. Mild wall thickening of the tortuous s igmoid colon on image 248 is likely secondary to partial distention. Small amount of layering hyperde nse material noted within the cecum and rectum. Normal appendix. Unremarkable soft tissues. Degenerat baldev changes of the spine, pelvis and hips. No acute fracture is identified. IMPRESSION: 1. Fluid-filled dilated colon and rectum has mildly progressed compared to the 07/25/2021 study, now w ith the large bowel measuring up to 10 cm transversely. No volvulus or obstruction. Findings are sugg estive of diarrheal illness with colonic pseudoobstruction ([place] syndrome). 2. Resolution of the previously noted small right rectus sheath hematoma. 3. Trace right pleural effusion. 4. Additional findings as above. ACT 112: Negative or not required by law. The above report was generated using voice recognition software. It may contain grammatical, syntax o r spelling errors. Electronically signed by: Tariq Lo M.D. 09/07/2021 4:10 PM
--- NOTE | 2021-09-07 18:00 | History & Physical Report ---
Date of Service September 07, 2021 Assessment & Plan (1) Acute on chronic kidney failure: Plan: - BUN 48, creatinine 1.92. Baseline creatinine ~1.11.2. - Suspect in the setting of dehydration, poor p.o. intake n/v due to pseudoobstruction/Guthrie syndrome. - N.p.o., LRs @125 cc/hour x 1L. - Hold losartan, avoid nephrotoxins, renally dose medications as able. 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 Has been symptomatic with abdominal distension, n/v/d. Recent imaging of abdomen over the past year have shown - NPO with IVF overnight. - Will consult GI for further recommendations regarding ongoing management. - C diff ordered given complaints of diarrhea, recent hospitalization, resides in long term. (3) Elevated troponin: Plan: - hsTrop 197.4 on presentation, in setting of BRIANNA, known CKD, and HOCM, however does report an episode of chest tightness this AM. - Repeat hsTrop later this evening-->175.3. - EKG with any new chest pain. Repeat trop with AM labs. (4) Diabetes 1.5, managed as type 2: Plan: - Continue Lantus, but reduce dose from 8 to 4 units while NPO. - Accuchecks achs + SSI - A1c in AM. - Diabetic/Heart healthy diet when tolerating PO intake. (5) Hypertension: Plan: - Reportedly hypotensive 80/50s at [facility], has been normo/hypertensive here. - Hold losartan due to BRIANNA, hold metoprolol due to bradycardia. (6) Bradycardia: Plan: - Holding metoprolol. (7) Anemia: Plan: - Of chronic disease. Hgb 10.7, at baseline. No acute issues. - Follow on AM labs. (8) Hypertrophic obstructive cardiomyopathy (HOCM): Plan: - Need to hold losartan due to BRIANNA, hold metoprolol due to bradycardia. (9) BPH with obstruction/lower urinary tract symptoms: Plan: - Continue Proscar 5mg daily, Flomax 0.4 mg daily. (10) Anxiety and depression: Plan: - Continue sertraline 25 mg daily. (11) Spinal stenosis: (12) Status post placement of cardiac pacemaker: Plan: - Admit to med/tele. - SCDs, Lovenox for DVT ppx. - DNR/DNI per Jody documentation. History of Present Illness Chief Complaint: several days of nausea, vomiting Primary Care Provider: [facility] Mr. Larkin is a 76-year-old male with a past medical history DM2, CKD, anemia, HTN, HOCM, spinal stenosis, cardiac pacemaker, BPH, anxiety, and depression who presents today from [facility] due to concerns for confusion and hypotension. Per records from [facility], patient seemed more confused today than he is at baseline, he was also moaning and complaining of abdominal pain and with BP 80/50s which prompted transportation to [facility] ED for further evaluation. Per EMS, BP has been normotensive for them and he has actually been hypertensive here after 1L NS. He seems like a fair historian at present, has difficulty elaborating on specifics, but does give some history that is consistent with Andre report. He is complaining of nausea, vomiting, and kuldip rrhea that has been ongoing the past several days. Also notes episode of chest pain this morning that felt like a tightness in his chest that radiated to his neck. He said he thought about telling the nurses about it, but chose not to. He denies any chest pain now, as well as shortness of breath, cough, palpitations, or abdominal pain. He is stating he is very thirsty, wishes to drink more but notes he has been getting sick easiy with food or drink, so has not been keeping up with nutrition well. In ED, is mildly hypertensive 151/68, bradycardic in 50s which seems to be baseline over the past month, otherwise vital signs within normal limits and stable. Labs significant for Hgb 10.7 (baseline), BUN 40, creatinine 1.92, glucose 182, initial HS trop 197.4. UA positive for protein, nitrite, 1+ bacteria. CT A/P showed fluid-filled dilated colon and rectum, mildly progressed from 07/25, consistent with colonic pseudoobstruction (Cece syndrome). Trace right pleural effusion. Allergies Allergy/AdvReac Type Severity Reaction Status Date / Time No Known Allergies Allergy ` Verified 09/07/21 16:27 Home Medications Medication Instructions Recorded Confirmed Type blood sugar diagnostic (OneTouch #100 ea 06/29/20 09/07/21 Rx Ultra Blue Test Strip) acetaminophen 325 mg tablet 650 mg PO Q4H PRN #30 tab 10/09/20 09/07/21 Rx finasteride 5 mg tablet (Proscar) 5 mg PO QAM #30 tab 10/09/20 09/07/21 Rx allopurinol 300 mg tablet 300 mg PO QAM 10/19/20 09/07/21 History aspirin 81 mg chewable tablet 81 mg PO QAM 10/19/20 09/07/21 History atorvastatin 40 mg tablet 40 mg PO HS #30 tab 10/29/20 09/07/21 Rx docusate sodium 100 mg capsule 100 mg PO Q12H PRN 11/14/20 09/07/21 History nystatin 100,000 unit/gram topical 1 applic TOPICAL BID 11/14/20 09/07/21 History cream sertraline 25 mg tablet 25 mg PO QAM 11/14/20 09/07/21 History insulin aspart U-100 100 unit/mL 3 unit SC AC #3 ml 11/20/20 09/07/21 Rx (3 mL) subcutaneous pen (Novolog Flexpen U-100 Insulin aspart) cholecalciferol (vitamin D3) 25 1,000 units PO QAM 12/16/20 09/07/21 History mcg (1,000 unit) capsule insulin glargine 100 unit/mL (3 8 unit SC QAM 12/16/20 09/07/21 History mL) subcutaneous pen (Lantus Solostar U-100 Insulin) polyethylene glycol 3350 17 gram 17 g PO Q12H PRN 12/16/20 09/07/21 History oral powder packet (Miralax) tamsulosin 0.4 mg capsule 0.4 mg PO BID17 12/16/20 09/07/21 History ascorbic acid (vitamin C) 250 mg 250 mg PO QAM 03/01/21 09/07/21 History tablet isosorbide mononitrate 60 mg 60 mg PO QAM 03/01/21 09/07/21 History tablet,extended release 24 hr metoprolol succinate 200 mg 200 mg PO QAM 03/01/21 09/07/21 History capsule sprinkle, ext. release 24 hr ropinirole 1 mg tablet 1 mg PO QAM 03/01/21 09/07/21 History losartan 50 mg tablet 50 mg PO QAM 07/16/21 09/07/21 History oxybutynin chloride 5 mg tablet 10 mg PO QAM 07/16/21 09/07/21 History potassium chloride 20 mEq 40 meq PO BID17 07/16/21 09/07/21 History tablet,extended release simethicone 125 mg chewable tablet 125 mg PO Q6H PRN 07/16/21 09/07/21 History Abc Complete Senior 50+ 1 tab PO HS 07/25/21 09/07/21 History cyanocobalamin (vitamin B-12) 1,000 mcg PO QAM 07/25/21 09/07/21 History 1,000 mcg tablet (Vitamin B-12) Past Med/Surg History Medical History Acute hypokalemia Acute hypotension BRIANNA (acute kidney injury) Anemia of chronic disease BPH with obstruction/lower urinary tract symptoms CKD (chronic kidney disease) Deep vein thrombosis (DVT) of left lower extremity Diabetes Elevated troponin Hypertension Hypertrophic obstructive cardiomyopathy (HOCM) Low back pain Mobitz (type) II atrioventricular block Proteinuria Sinus node dysfunction Skin carcinoma Spinal stenosis Subclavian vein thromboembolism, acute Syncope and collapse Surgical History H/O arthroscopy of knee History of cataract surgery Status post placement of cardiac pacemaker Family History Mother Ovarian cancer Diabetes Father Diabetes Unknown Coronary heart disease Denies family history of Prostate cancer Myocardial infarction Breast cancer Colorectal cancer Social History (Updated 09/08/21 @ 08:06 by Tremaine Sales) Smoking Status: Never smoker Second Hand Exposure: No; Hx Alcohol Use: No Hx Substance Use: No Preferred Language: [place] Citizen Communication Ability: Effective Sole Rounder Required: No Beliefs That Will Affect Care: None marital status: / Current Living Situation: Care Home Current Living Situation Comment: [facility] current occupational status: retired How many Children do You have: 0 Feels Safe at Home: Yes Childhood Exposure to Second-Hand Smoke: No caffeine: Yes Dental Care, Regularly: Yes Physical Activity Frequency: 1-2 Times per Week Seatbelt Use: always Sunscreen Use: No Assistive Devices: Walker Review of Systems Review of Systems: gen - no fevers; weakness, poor appetite eyes - no visual changes HENT - dry mouth, no nasal symptoms CV - see HPI pulm - no dyspnea at rest GI - nausea, emesis, diarrhea/liquid stools, bloating x 2 weeks - some difficulty voiding musculo - denies discrete joint pains skin - no rash neuro - generalized weakness; no longer walks endo - diabetes at baseline psych - memory problems per his brother Physical Exam Physical Exam: General: awake, alert, no apparent distress Head: Normocephalic, atraumatic ENT: PERRL, EOMI, no pharyngeal exudate, mucous membranes moist Chest: Clear to auscultation, on room air, no adventitious breath sounds Cardiac: Regular rate and rhythm, no murmur, no JVD, normal peripheral pulses, good capillary refill Abdominal: NABS x 4 quadrants, soft, nontender to palpation, no rebound, guarding or tenderness Extremities: Normal inspection, no peripheral edema or erythema, calfs nontender to palpation Psych: Normal mood and affect Neuro: AAO x 3, strength intact bilaterally and rated 5/5, no motor deficits, speech is clear, no peripheral sensory deficits Skin: no rash or erythema Results & Data Results & Data ([facility]) Vital Signs (Past 12 Hours) Vital Signs Temp Pulse Resp BP Pulse Ox 09/07/21 15:00 50 L 19 151/68 H 99 09/07/21 14:30 50 L 15 135/65 99 09/07/21 14:20 51 L 23 135/65 99 09/07/21 14:00 50 L 15 98 09/07/21 13:53 51 L 21 98 09/07/21 13:05 36.5 C 73 16 119/71 99 Laboratory Results Abnormal lab results 09/07/21 09/07/21 09/07/21 Range/Units 13:51 13:51 14:52 RBC 3.49 L (4.7-6.1) M/uL Hgb 10.7 L (14.0-18.0) g/dL Hct 32.5 L (42-52) % RDW Std Deviation 55.8 H (36.4-46.3) fL RDW Coeff of Nona 16.4 H (11.5-14.5) % MPV 11.8 H (7.4-10.4) fL Chloride 121 H (98-107) mmol/L Carbon Dioxide 14 L (21-32) mmol/L BUN 48 H (6-23) mg/dl Creatinine 1.92 H (0.6-1.4) mg/dl BUN/Creatinine Ratio 25.0 H (10-20) Glucose 182 H (70-99(Fasting)) mg/dl Troponin I High Sens 197.4 H* (0-20) pg/ml Urine Protein 2+ H (Negative) Urine Blood Trace H (Negative) Urine Nitrite Positive A (Negative) Urine Bacteria (Auto) 1+ H (Negative) Diagnostic Findings Abdomen/Pelvis CT 09/07/21 14:[address] WITHOUT CONTRAST CT DOSE: 1243.14 mGycm HISTORY: Acute generalized abdominal pain with nausea and vomiting. abd distention, n/v TECHNIQUE: Multiaxial CT images of the abdomen and pelvis were performed without contrast. A dose lowering technique was utilized adhering to the principles of ALARA. COMPARISON STUDY: CT abdomen and pelvis 07/25/2021 FINDINGS: Limited study secondary to upper extremity positioning and lack of IV contrast. Cardiomegaly with partially imaged pacer leads and coronary artery calcifications. Mild dilation of the ascending thoracic aorta, 4.3 x 4.3 cm. Trace right pleural effusion. Mild subsegmental bibasilar atelectasis with mild right hemidiaphragmatic elevation. There is no pneumatosis or pneumoperitoneum identified. The unenhanced spleen, moderately atrophic pancreas and adrenal glands are unremarkable. 1.6 cm cystic structure within the pancreatic neck is redemonstrated, possibly a sidebranch IPMN. Unchanged appearance of the gallbladder with mild distention. The unenhanced liver is unremarkable. Mild nonspecific bilateral perinephric stranding of the kidneys with mild cortical thinning. Renal vascular calcifications are present on the left. Unchanged 1.5 cm cyst of the inferior pole right kidney. No hydronephrosis. Urinary bladder wall thickening with partial distention. Prostamegaly. Atherosclerosis of the abdominal aorta without aneurysm. There is no lymphade nopathy identified. No small bowel obstruction. There is persistent gaseous distention of the large bowel with air-fluid levels, progressed from before 21/07/2021 study. Transverse dimension of the large bowel measures up to 10 cm, previously 9.2 cm. No transition point is identified. Mild wall thickening of the tortuous sigmoid colon on image 248 is likely secondary to partial distention. Small amount of layering hyperdense material noted within the cecum and rectum. Normal appendix. Unremarkable soft tissues. Degenerative changes of the spine, pelvis and hips. No acute fracture is identified. IMPRESSION: 1. Fluid-filled dilated colon and rectum has mildly progressed compared to the 07/25/2021 study, now with the large bowel measuring up to 10 cm transversely. No volvulus or obstruction. Findings are suggestive of diarrheal illness with colonic pseudoobstruction (Cece syndrome). 2. Resolution of the previously noted small right rectus sheath hematoma. 3. Trace right pleural effusion. 4. Additional findings as above. ACT 112: Negative or not required by law. The above report was generated using voice recognition software. It may contain grammatical, syntax or spelling errors. Electronically signed by: Tariq Lo M.D. 09/07/2021 4:10 PM ECG Additional Comments: Atrial-paced rhythm with prolonged AV conduction Right bundle branch block Abnormal ECG When compared with ECG of 25-JUL-2021 09:46, No significant change was found. Code Status & VTE Plan Code Status DNR/DNI. Supervising Physician Co-Signing Physician Notes Attending Attestation and Admission Note - Pt seen/examined, chart reviewed, care plan d/w YRIS Smith. I agree w/ the nickerson components of her documentation except - * exam - mucous membranes are dry; legs - increased tone b/l, weakness of legs b/l 76yo male with 1-2 weeks of poor oral intake, diarrhea, abd bloating, abd discomfort, vomiting, nausea. Similar symptoms in July that also required admission to [facility]. CT a/p in July with possible Cece's. He reports that following that admission his stools did ultimately become formed/normalize. During my assessment he mentions that he has not had any further chest pain or dyspnea. PMH/PSH/allergies/meds/sochx/famhx - reviewed VSS, afebrile gen - looks chronically ill appearing, weak mouth - MM severely dry neck - no JVD heart - RRR, s1 s2 lungs - CTA b/l abd - distended, BS+ and high-pitched, mildly tender lower quadrants ext - pulses 2+ b/l, no edema neuro - increased tone in LEs labs reviewed imaging reviewed EKG - pacing A/P: N/V/D/distension - CT a/p with colonic pseudo-obstruction (Guthrie's)? Similar finding on CT in July. Check a c diff given the diarrhea. Patient severely volume contracted - IV fluids overnight. Hypomagnesemia - replace, repeat level am. NPO for now. Will ask GI to consult for additional recs. Of note - patient has never had colonoscopy. Increased tone b/l LEs - etiology? l-spine pathology? 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
[2021-09-07] MEDS ORDERED: CARBOHYDRATES FOR HYPOGLYCEMIA PO PRN (21:03)
[2021-09-07] MEDS ORDERED: POLYETHYLENE (MIRALAX) 17 GM PACK PO PRN (21:03)
[2021-09-07] MEDS ORDERED: ONDANSETRON INJ 2 MG/ML 2 ML VIAL IV PRN (21:03)
[2021-09-07] MEDS ORDERED: GLUCOSE 10 TABS/TUBE PO PRN (21:03)
[2021-09-07] MEDS ORDERED: DEXTROSE 50% 50 ML SYRINGE IV PRN (21:03)
[2021-09-07] MEDS ORDERED: DOCUSATE SODIUM 100 MG CAP PO PRN (21:03)
[2021-09-07] MEDS ORDERED: GLUCOSE 40% GEL 15 GM TUBE PO PRN (21:03)
[2021-09-07] MEDS ORDERED: GLUCAGON FOR INJ 1 MG VIAL SQ PRN (21:03)
[2021-09-07] MEDS ORDERED: SIMETHICONE 80 MG CHEW PO PRN (21:27)
[2021-09-07] MEDS: LACTATED RINGER'S 1,000 ML IV SCH (21:44)
[2021-09-07] MEDS: NYSTATIN CR 15 GM TUBE EXT SCH (22:08)
[2021-09-07] MEDS: ATORVASTATIN 40 MG TAB PO SCH (22:09)
[2021-09-07] MEDS: ENOXAPARIN INJ 40 MG/0.4 ML SYR SQ SCH (22:09)
[2021-09-07] MEDS: INSULIN ASPART PER UNIT SC SCH (22:09)
[2021-09-08 06:46] LABS: Basophils # (auto) 0.01 K/uL (0-0.2); Basophils % (auto) 0.2 %; Eosinophils # (auto) 0.44 K/uL (0-0.5); Eosinophils % (auto) 7.7 %; Hematocrit (blood only) 31.5 % (42-52); Hemoglobin 10.4 g/dL (14.0-18.0); Immature Granulocytes # (auto) 0.01 K/uL (0.00-0.02); Immature Granulocytes % (auto) 0.2 %; Lymphocytes # (auto) 1.52 K/uL (1.2-3.4); Lymphocytes % (auto) 26.7 %; Mean Corpuscular Hemoglobin 30.5 pg (25-34); Mean Corpuscular Volume 92.4 fL (80-100); Mean Platelet Volume 11.4 fL (7.4-10.4); Monocytes # (auto) 0.44 K/uL (0.11-0.59); Monocytes % (auto) 7.7 %; Neutrophils # (auto) 3.28 K/uL (1.4-6.5); Neutrophils % (auto) 57.5 %; Platelet Count 136 K/uL (130-400); RDW Coefficient of Variation 16.3 % (11.5-14.5); Red Blood Count 3.41 M/uL (4.7-6.1)
[2021-09-08 07:09] LABS: BUN Creatinine Ratio 29.9 (10-20); Calcium 9.1 mg/dl (8.5-10.1); Creatinine Clr Calc Pharmacy 43.3 ml/min; Est GFR (African American) 49.7 ml/min; Est GFR (Non-African American) 42.9 ml/min; Magnesium 1.1 mg/dl (1.7-2.4); Potassium 3.8 mmol/L (3.5-5.1)
[2021-09-08 07:22] LABS: Troponin I High Sensitivity 182.2 pg/ml (0-20)
[2021-09-08] MEDS: INSULIN ASPART PER UNIT SC SCH ×3 (07:53→17:44)
[2021-09-08] MEDS ORDERED: Nursing to Pharmacy Communication SCH (08:00)
[2021-09-08 08:02] LABS: Estimated Average Glucose 151 mg/dl; Hemoglobin A1C 6.9 % (4.5-5.6)
[2021-09-08] MEDS: LACTATED RINGER'S 1,000 ML IV SCH (08:05)
[2021-09-08] MEDS: SERTRALINE HCL 50 MG TABLET PO SCH (08:08)
[2021-09-08] MEDS: rOPINIRole HCL 1 MG TABLET PO SCH (08:09)
[2021-09-08] MEDS: ISOSORBIDE MONO EXTENDED REL 60 MG TABCR PO SCH (08:10)
[2021-09-08] MEDS: TAMSULOSIN HCL 0.4 MG CAP PO SCH ×2 (08:11→17:47)
[2021-09-08] MEDS: ASPIRIN 81 MG ECTAB PO SCH (08:11)
[2021-09-08] MEDS: FINASTERIDE 5 MG TAB PO SCH (08:11)
[2021-09-08] MEDS: allopurinoL 300 MG TAB PO SCH (08:11)
[2021-09-08] MEDS: INSULIN GLARGINE SOLOSTAR 100 UNITS/ML 3 ML PEN SC SCH (08:12)
[2021-09-08] MEDS: POTASSIUM CHLORIDE CRTAB 20 MEQ TABCR PO SCH ×2 (08:12→17:47)
[2021-09-08] MEDS: ASCORBIC ACID 500 MG TAB PO SCH (08:13)
[2021-09-08] MEDS: CYANOCOBALAMIN (B-12) 500 MCG TABLET PO SCH (08:13)
[2021-09-08] MEDS: CHOLECALCIFEROL 1,000 UNITS 25 MCG TAB PO SCH (08:13)
[2021-09-08] MEDS: NYSTATIN CR 15 GM TUBE EXT SCH ×2 (08:15→21:58)
[2021-09-08] MEDS ORDERED: OXYBUTYNIN CHLORIDE 5 MG TAB PO SCH (09:00)
--- NOTE | 2021-09-08 09:22 | Gastrointestinal Consultation ---
Date of Consultation September 08, 2021 Assessment & Plan (1) Delano syndrome: -Advise NG tube placement -NPO -Avoid narcotics -Daily xray -Monitor CBC, CMP -Cecal diameter is less than 12 cm, so can continue with conservative management for now however if no improvement would have a low threshold for surgical consultation. This does, however, seem to present as an acute on chronic picture. Supervising Physician Co-Signing Physician Notes I personally evaluated the patient and agree with the findings as documented by Maria Fernanda Monroy, GEN Exam: Constitutional: WD/WN, vitals as above General: EOM intact bilaterally Neck: normal visual inspection Respiratory: normal respiratory effort, lungs clear to auscultation Cardiovascular: RRR, no murmur, no edema Gastrointestinal: abdomennormal to inspection, soft, nontender, no hepatosplenomegaly Musculoskeletal: no cyanosis, head normal to inspection Skin: no rashes, warm and dry Neurologic: moves all extremities Psychiatric: A and O x3, euthymic affect History of Present Illness Reason for Consultation: Olgilvie Syndrome Attending Physician: Tremaine Sales History of Present Illness Patient is a 76 yo male with PMH of CKD, DM2, anemia, HTN, HOCM, spinal sten osis, cardiac pacemaker, BPH, anxiety, & depression who was [facility] due to concerns for confusion and hypotension. In the ED, he complained of nausea, vomiting, and diarrhea ongoing for several days along with some chest pain with radiation to the neck. No pertinent personal or family history of GI issues. He is currently denying vomiting but has nausea. He had a CT scan of the abdomen/pelvis that indicated a dilated colon and rectum consistent with pseudoobstruction, mildly progressed from a CT scan from 07/25/21 where this was noted as well. Cecal diameter is 10 cm. Troponin is elevated at 182.2. H/H 10.4/31.5. BUN 46, Cr 1.54. A1C 6.9. Mg 1.1. Allergies Allergy/AdvReac Type Severity Reaction Status Date / Time No Known Allergies Allergy ` Verified 09/07/21 16:27 Home Medications Medication Instructions Recorded Confirmed Type blood sugar diagnostic (OneTouch #100 ea 06/29/20 09/07/21 Rx Ultra Blue Test Strip) acetaminophen 325 mg tablet 650 mg PO Q4H PRN #30 tab 10/09/20 09/07/21 Rx finasteride 5 mg tablet (Proscar) 5 mg PO QAM #30 tab 10/09/20 09/07/21 Rx allopurinol 300 mg tablet 300 mg PO QAM 10/19/20 09/07/21 History aspirin 81 mg chewable tablet 81 mg PO QAM 10/19/20 09/07/21 History atorvastatin 40 mg tablet 40 mg PO HS #30 tab 10/29/20 09/07/21 Rx docusate sodium 100 mg capsule 100 mg PO Q12H PRN 11/14/20 09/07/21 History nystatin 100,000 unit/gram topical 1 applic TOPICAL BID 11/14/20 09/07/21 History cream sertraline 25 mg tablet 25 mg PO QAM 11/14/20 09/07/21 History insulin aspart U-100 100 unit/mL 3 unit SC AC #3 ml 11/20/20 09/07/21 Rx (3 mL) subcutaneous pen (Novolog Flexpen U-100 Insulin aspart) cholecalciferol (vitamin D3) 25 1,000 units PO QAM 12/16/20 09/07/21 History mcg (1,000 unit) capsule insulin glargine 100 unit/mL (3 8 unit SC QAM 12/16/20 09/07/21 History mL) subcutaneous pen (Lantus Solostar U-100 Insulin) polyethylene glycol 3350 17 gram 17 g PO Q12H PRN 12/16/20 09/07/21 History oral powder packet (Miralax) tamsulosin 0.4 mg capsule 0.4 mg PO BID17 12/16/20 09/07/21 History ascorbic acid (vitamin C) 250 mg 250 mg PO QAM 03/01/21 09/07/21 History tablet isosorbide mononitrate 60 mg 60 mg PO QAM 03/01/21 09/07/21 History tablet,extended release 24 hr metoprolol succinate 200 mg 200 mg PO QAM 03/01/21 09/07/21 History capsule sprinkle, ext. release 24 hr ropinirole 1 mg tablet 1 mg PO QAM 03/01/21 09/07/21 History losartan 50 mg tablet 50 mg PO QAM 07/16/21 09/07/21 History oxybutynin chloride 5 mg tablet 10 mg PO QAM 07/16/21 09/07/21 History potassium chloride 20 mEq 40 meq PO BID17 07/16/21 09/07/21 History tablet,extended release simethicone 125 mg chewable tablet 125 mg PO Q6H PRN 07/16/21 09/07/21 History Abc Complete Senior 50+ 1 tab PO HS 07/25/21 09/07/21 History cyanocobalamin (vitamin B-12) 1,000 mcg PO QAM 07/25/21 09/07/21 History 1,000 mcg tablet (Vitamin B-12) Patient History Medical History Acute hypokalemia Acute hypotension BRIANNA (acute kidney injury) Anemia of chronic disease BPH with obstruction/lower urinary tract symptoms CKD (chronic kidney disease) Deep vein thrombosis (DVT) of left lower extremity Diabetes Elevated troponin Hypertension Hypertrophic obstructive cardiomyopathy (HOCM) Low back pain Mobitz (type) II atrioventricular block Proteinuria Sinus node dysfunction Skin carcinoma Spinal stenosis Subclavian vein thromboembolism, acute Syncope and collapse Surgical History H/O arthroscopy of knee History of cataract surgery Status post placement of cardiac pacemaker Family History Mother Ovarian cancer Diabetes Father Diabetes Unknown Coronary heart disease Denies family history of Prostate cancer Myocardial infarction Breast cancer Colorectal cancer Social History Smoking Status: Never smoker Second Hand Exposure: No; Hx Alcohol Use: No Hx Substance Use: No Preferred Language: Wolof Communication Ability: Effective Slurry Worker Required: No Beliefs That Will Affect Care: None marital status: / Current Living Situation: Senior Living Current Living Situation Comment: [facility] current occupational status: retired How many Children do You have: 0 Feels Safe at Home: Yes Childhood Exposure to Second-Hand Smoke: No caffeine: Yes Dental Care, Regularly: Yes Physical Activity Frequency: 1-2 Times per Week Seatbelt Use: always Sunscreen Use: No Assistive Devices: Walker Review of Systems Constitutional: no fever and no chills Respiratory: no dyspnea Gastrointestinal: + nausea; no abdominal pain and no vomiting Physical Exam Constitutional: no acute distress Respiratory: no respiratory distress Cardiovascular: Rate/Rhythm: regular rate Gastrointestinal (Abdomen): Inspection/Auscultation: + abdomen distended and + hypoactive bowel sounds Musculoskeletal: Head/Neck/Chest: normocephalic Psychiatric: Orientation: alert; + not oriented x 3 Results & Data ([facility]) Vital Signs (Past 12 Hours) Vital Signs Temp Pulse Pulse Resp BP Pulse Ox 09/08/21 07:55 36.8 C 50 L 20 124/66 98 09/08/21 07:35 50 L 09/08/21 03:33 36.5 C 50 L 18 168/82 H 100 09/07/21 23:17 35.9 C L 57 L 18 170/72 H 99 09/07/21 22:12 55 L 09/07/21 21:17 36.2 C L 60 20 133/67 99 PG Care Time/CCT Total # of Minutes Spent Total Time Spent with Patient: Total time spent is greater than 50% in coordination of care (as documented) at patient's floor/unit and/or counseling patient: Coding Level of Care Code 67596 Initial Inpt Care Lvl 3 Diagnoses 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
[2021-09-08] MEDS: MAGNESIUM SULFATE / D5W 1 GM/100 ML BAG IV SCH ×3 (09:39→13:34)
[2021-09-08] MEDS: SODIUM BICARBONATE 8.4% 100 MEQ in WATER, STERILE 1,000 ML IV SCH ×2 (09:39→23:49)
[2021-09-08 19:25] LABS: Potassium 3.9 mmol/L (3.5-5.1)
[2021-09-08 19:26] LABS: BUN Creatinine Ratio 27.2 (10-20); Calcium 9.1 mg/dl (8.5-10.1); Creatinine Clr Calc Pharmacy 44.1 ml/min; Est GFR (African American) 50.9 ml/min; Est GFR (Non-African American) 43.9 ml/min; Magnesium 1.7 mg/dl (1.7-2.4)
--- NOTE | 2021-09-08 21:43 | Electrocardiogram Report ---
Test Reason : Blood Pressure : / mmHG Vent. Rate : 054 BPM Atrial Rate : 054 BPM P-R Int : 320 ms QRS Dur : 150 ms QT Int : 470 ms P-R-T Axes : 000 -18 007 degrees QTc Int : 445 ms Atrial-paced rhythm with prolonged AV conduction Right bundle branch block Abnormal ECG When compared with ECG of 25-JUL-2021 09:46, No significant change was found Confirmed by Cheko Argueta ([id number]) on 09/08/2021 9:43:09 PM Referred By: [facility] Confirmed By:Cheko Argueta
--- NOTE | 2021-09-08 21:45 | Hospitalist Progress Note ---
Date of Service September 08, 2021 Assessment & Plan (1) [place] syndrome: Plan: CT abd/pelvis in 07/2021 showed similar findings in comparison to this admission's CT. Patient has never had a colonoscopy. He remains very distended on exam. He self-reported frequent diarrhea at time of admission but has had none since admission to the hospital. Appreciate GI consultation; attempts at NG tube placement today unsuccessful. Remains NPO. Cont IV fluids. repeat x-rays in am. May need gen surg evaluation. Keep K and mag wnl. Hold oxybutyinin as this can affect GI motility. (2) Hyperchloremic metabolic acidosis: Plan: Suspect 2nd to recent diarrhea at the [facility]. Change IV fluids to bicarbonate drip. Repeat BMP this evening then again in am. (3) Acute on chronic kidney failure: Plan: BRIANNA. Likely prerenal from poor PO intake, vomiting, diarrhea. Baseline creatinine ~1.11.2. Presenting creatinine - 1.9. Today 1.5. Continue IV fluids. Hold ARB. Repeat BMP tonight and in am. (4) Elevated troponin: Plan: hsTrop 197.4 on presentation. NO ISCHEMIC SYMPTOMS pre-admission or while here. Likely myocardial demand ischemia in setting of #1, dehydration, BRIANNA, and HCOM. (5) Diabetes 1.5, managed as type 2: Plan: While NPO we have reduced this lantus to 4 units daily. Novolog SSI. BSGs q6h. (6) Hypertension: Plan: Controlled. No hypotension while admitted. Holding ARB 2nd to BRIANNA. Holding metoprolol due to bradycardia. (7) Bradycardia: Plan: Sinus zenaida. Holding metoprolol. Keep on tele. (8) Anemia: Plan: Mild, stable. serial labs. (9) Hypertrophic obstructive cardiomyopathy (HOCM): Plan: Avoid dehydration. Avoid excessive afterload reduction. Holding ARB & metoprolol as above. (10) BPH with obstruction/lower urinary tract symptoms: Plan: Continue Proscar 5mg daily Continue Flomax 0.4 mg daily. (11) Anxiety and depression: Plan: Continue sertraline 25 mg daily. (12) Spinal stenosis: (13) Status post placement of cardiac pacemaker: Plan: for high-degree AV block based on records (14) Hypomagnesemia: Plan: still remains low at 1.1 this am. mag sulfate 3 grams IV x 1. repeat level this evening 1.7. trend. potassium level noted to be normal. Plan: will ultimately need PT/OT Admission and Anticipated Discharge Date Admission Date: September 07, 2021 Subjective pt was seen by GI earlier today NG tube placement advised 2 attempts made by staff for passage on 2nd attempt the NG tube was successful but he promptly pulled the NG tube out he refused to have it placed back he denies any vomiting today no stool per nursing staff abd bloating is about the same - certainly no worse denies pain he is tolerating a small amount of occasional ice chips tele overnight - sinus zenaida or NSR Review of Systems Review of Systems: gen - fatigue, weak; no fever cv - no chest pain pulm - no cough or congestion GI - no vomiting, no diarrhea Physical Exam Physical Exam: gen - looks a little better than yesterday; chronically unwell appearing and frail mouth - MM still dry neck - no JVD heart - RR, zenaida, s1 s2 lungs - CTA b/l abd - marked distension, BS+ and high pitched, NT, no HSM ext - no edema, pulses 2+ b/l Results & Data Results & Data ([facility]) Vital Signs (Past 12 Hours) Vital Signs Temp Pulse Pulse Resp BP Pulse Ox 09/08/21 19:17 36.3 C L 55 L 18 145/68 H 98 09/08/21 16:29 51 L 09/08/21 15:33 36.5 C 52 L 20 108/63 99 09/08/21 11:20 36.3 C L 50 L 20 154/72 H 98 Laboratory Results Laboratory Results - last 24 hr 09/08/21 09/08/21 09/08/21 06:22 06:22 06:22 WBC 5.70 RBC 3.41 L Hgb 10.4 L Hct 31.5 L MCV 92.4 MCH 30.5 MCHC 33.0 RDW Std Deviation 55.0 H RDW Coeff of Nona 16.3 H Plt Count 136 MPV 11.4 H Immature Gran % (Auto) 0.2 Neut % (Auto) 57.5 Lymph % (Auto) 26.7 [place] % (Auto) 7.7 Eos % (Auto) 7.7 Baso % (Auto) 0.2 Neut # (Auto) 3.28 Lymph # (Auto) 1.52 [place] # (Auto) 0.44 Eos # (Auto) 0.44 Baso # (Auto) 0.01 Immature Gran # (Auto) 0.01 Sodium 143 Potassium 3.8 Chloride 123 H Carbon Dioxide 13 L Anion Gap 7 BUN 46 H Creatinine 1.54 H D Est Cr Clr Drug Dosing 43.3 Est GFR ( Amer) 49.7 Est GFR (Non-Af Amer) 42.9 BUN/Creatinine Ratio 29.9 H Glucose 88 POC Glucose Estimat Average Glucose 151 Hemoglobin A1c 6.9 H Calcium 9.1 Magnesium 1.1 L Troponin I High Sens 182.2 H* 09/08/21 09/08/21 09/08/21 07:42 12:20 17:34 WBC RBC Hgb Hct MCV MCH MCHC RDW Std Deviation RDW Coeff of Nona Plt Count MPV Immature Gran % (Auto) Neut % (Auto) Lymph % (Auto) [place] % (Auto) Eos % (Auto) Baso % (Auto) Neut # (Auto) Lymph # (Auto) [place] # (Auto) Eos # (Auto) Baso # (Auto) Immature Gran # (Auto) Sodium Potassium Chloride Carbon Dioxide Anion Gap BUN Creatinine Est Cr Clr Drug Dosing Est GFR ( Amer) Est GFR (Non-Af Amer) BUN/Creatinine Ratio Glucose POC Glucose 87 121 H 139 H Estimat Average Glucose Hemoglobin A1c Calcium Magnesium Troponin I High Sens 09/08/21 09/08/21 18:39 20:37 WBC RBC Hgb Hct MCV MCH MCHC RDW Std Deviation RDW Coeff of Nona Plt Count MPV Immature Gran % (Auto) Neut % (Auto) Lymph % (Auto) [place] % (Auto) Eos % (Auto) Baso % (Auto) Neut # (Auto) Lymph # (Auto) [place] # (Auto) Eos # (Auto) Baso # (Auto) Immature Gran # (Auto) Sodium 139 Potassium 3.9 Chloride 117 H Carbon Dioxide 16 L Anion Gap 6 BUN 41 H Creatinine 1.51 H Est Cr Clr Drug Dosing 44.1 Est GFR ( Amer) 50.9 Est GFR (Non-Af Amer) 43.9 BUN/Creatinine Ratio 27.2 H Glucose 128 H POC Glucose 101 H Estimat Average Glucose Hemoglobin A1c Calcium 9.1 Magnesium 1.7 Troponin I High Sens PG Care Time/CCT Total # of Minutes Spent Total Time Spent with Patient: Total time spent is greater than 50% in coordination of care (as documented) at patient's floor/unit and/or counseling patient: Coding Level of Care Code 36777 Subseq Hosp Care Lvl 3 Diagnoses Acute on chronic kidney failure N17.9; N18.9 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
[2021-09-08] MEDS: ENOXAPARIN INJ 40 MG/0.4 ML SYR SQ SCH (21:58)
[2021-09-08] MEDS: ATORVASTATIN 40 MG TAB PO SCH (21:59)
[2021-09-09 07:51] LABS: Hematocrit (blood only) 29.6 % (42-52); Hemoglobin 9.8 g/dL (14.0-18.0); Mean Corpuscular Hemoglobin 30.5 pg (25-34); Mean Corpuscular Hgb Conc 33.1 g/dL (32-36); Mean Corpuscular Volume 92.2 fL (80-100); Mean Platelet Volume 11.4 fL (7.4-10.4); Platelet Count 128 K/uL (130-400); RDW Coefficient of Variation 15.9 % (11.5-14.5); RDW Standard Deviation 53.6 fL (36.4-46.3); Red Blood Count 3.21 M/uL (4.7-6.1); White Blood Count 5.47 K/uL (4.8-10.8)
--- NOTE | 2021-09-09 08:10 | Gastroenterology Progress Note ---
Date of Service September 09, 2021 Assessment & Plan (1) [place] syndrome: Plan: -NG tube placement unsuccessful -NPO -Abdominal xray this AM Admission and Anticipated Discharge Date Admission Date: September 07, 2021 Supervising Physician Co-Signing Physician Notes I personally evaluated the patient and agree with the findings as documented by GEN oH Exam: Constitutional: WD/WN, vitals as above General: EOM intact bilaterally Neck: normal visual inspection Respiratory: normal respiratory effort, lungs clear to auscultation Cardiovascular: RRR, no murmur, no edema Gastrointestinal: abdomennormal to inspection, distended, soft, nontender, no hepatosplenomegaly, bowel sounds hyperactive Musculoskeletal: no cyanosis, head normal to inspection Skin: no rashes, warm and dry Neurologic: moves all extremities Psychiatric: A and O x3, euthymic affect Xray today appears unchanged, repeat again tomorrow morning, continue NPO for now, replete lytes prn Subjective Patient is a 76 yo male with colonic pseudo obstruction. He denies passing stool but notes flatus. Attempts at placing an NG tube were unsuccessful. He denies abdominal pain. Repeat imaging study for the day is ordered. He has been NPO. Review of Systems Gastrointestinal: + bloating and + constipation; no abdominal pain Physical Exam Constitutional: well developed Respiratory: normal respiratory effort Gastrointestinal (Abdomen): Inspection/Auscultation: + abdomen distended Psychiatric: Orientation: alert Results & Data Results & Data ([facility]) Vital Signs (Past 12 Hours) Vital Signs Temp Pulse Pulse Resp BP Pulse Ox 09/09/21 06:45 36.6 C 58 L 18 154/81 H 100 09/09/21 03:44 36.6 C 54 L 18 153/82 H 96 09/08/21 23:24 36.6 C 57 L 18 169/85 H 99 09/08/21 22:17 51 L PG Care Time/CCT Total # of Minutes Spent Total Time Spent with Patient: Total time spent is greater than 50% in coordination of care (as documented) at patient's floor/unit and/or counseling patient: Coding Level of Care Code 82574 Subseq Hosp Care Lvl 3 Diagnoses [place] syndrome K59.81
[2021-09-09 08:16] LABS: BUN Creatinine Ratio 29.9 (10-20); Creatinine Clr Calc Pharmacy 53.5 ml/min; Est GFR (African American) 62.7 ml/min; Est GFR (Non-African American) 54.1 ml/min; Potassium 3.7 mmol/L (3.5-5.1)
[2021-09-09] MEDS: INSULIN ASPART PER UNIT SC SCH ×4 (09:02→17:14)
[2021-09-09] MEDS: POTASSIUM CHLORIDE CRTAB 20 MEQ TABCR PO SCH ×2 (09:03→18:30)
[2021-09-09] MEDS: TAMSULOSIN HCL 0.4 MG CAP PO SCH ×2 (09:03→18:30)
[2021-09-09] MEDS: CHOLECALCIFEROL 1,000 UNITS 25 MCG TAB PO SCH (09:04)
[2021-09-09] MEDS: FINASTERIDE 5 MG TAB PO SCH (09:04)
[2021-09-09] MEDS: rOPINIRole HCL 1 MG TABLET PO SCH (09:04)
[2021-09-09] MEDS: allopurinoL 300 MG TAB PO SCH (09:05)
[2021-09-09] MEDS: CYANOCOBALAMIN (B-12) 500 MCG TABLET PO SCH (09:05)
[2021-09-09] MEDS: ASPIRIN 81 MG ECTAB PO SCH (09:05)
[2021-09-09] MEDS: SERTRALINE HCL 50 MG TABLET PO SCH (09:09)
[2021-09-09] MEDS: ASCORBIC ACID 500 MG TAB PO SCH (09:10)
[2021-09-09] MEDS: NYSTATIN CR 15 GM TUBE EXT SCH ×2 (09:10→21:56)
[2021-09-09] MEDS: INSULIN GLARGINE SOLOSTAR 100 UNITS/ML 3 ML PEN SC SCH (09:33)
--- NOTE | 2021-09-09 10:20 | XRay Report ---
KUB CLINICAL HISTORY: Pseudoobstruction. FINDINGS: 2 AP, portable, supine abdominal radiographs are correlated with abdominal CT dated 2. Marked gaseous distention of the colon is unchanged. The colon measures up to at least 11 cm in di ameter. No evidence of intraperitoneal free air is seen on these supine views. There are no abnormal abdominal calcifications. The skeletal structures are osteopenic and appear intact. There is lumbosac ral spondylosis. IMPRESSION: Marked gaseous distention of the colon has not appreciably changed and could represent co lonic obstruction versus pseudoobstruction. Clinical correlation will be required. Electronically signed by: Nasim Clark M.D. 09/09/2021 10:19 AM
[2021-09-09] MEDS: SODIUM BICARBONATE 8.4% 100 MEQ in WATER, STERILE 1,000 ML IV SCH (15:17)
[2021-09-09] MEDS: ISOSORBIDE MONO EXTENDED REL 60 MG TABCR PO SCH (15:17)
--- NOTE | 2021-09-09 19:04 | Surgery Consultation ---
Date of Consultation September 09, 2021 Assessment & Plan (1) Pseudoobstruction of colon: Unfortunately from a surgical standpoint a transverse loop colostomy would be the only thing I could offer this patient He would tolerate the operation however his postop course may be very difficult Endoscopic transrectal colonic decompression with tube placement could be attempted prior to any major surgical intervention Obviously these would have to be discussed with his brother Miguel I have nothing else to offer him at the present time-I did discuss this with him and he did appear to understand what I was saying History of Present Illness Attending Physician: Tremaine Sales History of Present Illness 76-year-old male from [facility] admitted with confusion and decreased blood pressure with nausea vomiting distention diarrhea Patient has several month history of pseudoobstruction of the colon. He currently does have significantly distended abdomen and colon-but no significant abdominal pain. The GI team has tried to place an NG tube but the patient does not tolerate it and pulls it out It does not appear any other endoscopy or transrectal decompression has been attempted The patient is awake and relatively alert and does appear to understand what I am talking to him about He obviously has other comorbidity including diabetes chronic kidney disease hyp ertension pacemaker He is bedbound and immobile Allergies Allergy/AdvReac Type Severity Reaction Status Date / Time No Known Allergies Allergy ` Verified 09/07/21 16:27 Home Medications Medication Instructions Recorded Confirmed Type blood sugar diagnostic (OneTouch #100 ea 06/29/20 09/07/21 Rx Ultra Blue Test Strip) acetaminophen 325 mg tablet 650 mg PO Q4H PRN #30 tab 10/09/20 09/07/21 Rx finasteride 5 mg tablet (Proscar) 5 mg PO QAM #30 tab 10/09/20 09/07/21 Rx allopurinol 300 mg tablet 300 mg PO QAM 10/19/20 09/07/21 History aspirin 81 mg chewable tablet 81 mg PO QAM 10/19/20 09/07/21 History atorvastatin 40 mg tablet 40 mg PO HS #30 tab 10/29/20 09/07/21 Rx docusate sodium 100 mg capsule 100 mg PO Q12H PRN 11/14/20 09/07/21 History nystatin 100,000 unit/gram topical 1 applic TOPICAL BID 11/14/20 09/07/21 History cream sertraline 25 mg tablet 25 mg PO QAM 11/14/20 09/07/21 History insulin aspart U-100 100 unit/mL 3 unit SC AC #3 ml 11/20/20 09/07/21 Rx (3 mL) subcutaneous pen (Novolog Flexpen U-100 Insulin aspart) cholecalciferol (vitamin D3) 25 1,000 units PO QAM 12/16/20 09/07/21 History mcg (1,000 unit) capsule insulin glargine 100 unit/mL (3 8 unit SC QAM 12/16/20 09/07/21 History mL) subcutaneous pen (Lantus Solostar U-100 Insulin) polyethylene glycol 3350 17 gram 17 g PO Q12H PRN 12/16/20 09/07/21 History oral powder packet (Miralax) tamsulosin 0.4 mg capsule 0.4 mg PO BID17 12/16/20 09/07/21 History ascorbic acid (vitamin C) 250 mg 250 mg PO QAM 03/01/21 09/07/21 History tablet isosorbide mononitrate 60 mg 60 mg PO QAM 03/01/21 09/07/21 History tablet,extended release 24 hr metoprolol succinate 200 mg 200 mg PO QAM 03/01/21 09/07/21 History capsule sprinkle, ext. release 24 hr ropinirole 1 mg tablet 1 mg PO QAM 03/01/21 09/07/21 History losartan 50 mg tablet 50 mg PO QAM 07/16/21 09/07/21 History oxybutynin chloride 5 mg tablet 10 mg PO QAM 07/16/21 09/07/21 History potassium chloride 20 mEq 40 meq PO BID17 07/16/21 09/07/21 History tablet,extended release simethicone 125 mg chewable tablet 125 mg PO Q6H PRN 07/16/21 09/07/21 History Abc Complete Senior 50+ 1 tab PO HS 07/25/21 09/07/21 History cyanocobalamin (vitamin B-12) 1,000 mcg PO QAM 07/25/21 09/07/21 History 1,000 mcg tablet (Vitamin B-12) Patient History Medical History Acute hypokalemia Acute hypotension BRIANNA (acute kidney injury) Anemia of chronic disease BPH with obstruction/lower urinary tract symptoms CKD (chronic kidney disease) Deep vein thrombosis (DVT) of left lower extremity Diabetes Elevated troponin Hypertension Hypertrophic obstructive cardiomyopathy (HOCM) Low back pain Mobitz (type) II atrioventricular block Proteinuria Sinus node dysfunction Skin carcinoma Spinal stenosis Subclavian vein thromboembolism, acute Syncope and collapse Surgical History H/O arthroscopy of knee History of cataract surgery Status post placement of cardiac pacemaker Family History Mother Ovarian cancer Diabetes Father Diabetes Unknown Coronary heart disease Denies family history of Prostate cancer Myocardial infarction Breast cancer Colorectal cancer Social History Smoking Status: Never smoker Second Hand Exposure: No; Hx Alcohol Use: No Hx Substance Use: No Preferred Language: Turkmen Communication Ability: Impaired Bell Hole Digger Required: No Beliefs That Will Affect Care: None marital status: / Current Living Situation: Shelter Current Living Situation Comment: [facility] current occupational status: retired How many Children do You have: 0 Feels Safe at Home: Yes Childhood Exposure to Second-Hand Smoke: No caffeine: Yes Dental Care, Regularly: Yes Physical Activity Frequency: 1-2 Times per Week Seatbelt Use: always Sunscreen Use: No Assistive Devices: Walker Review of Systems Review of Systems: All systems reviewed & are unremarkable except as noted in HPI & below Physical Exam Physical Exam: Patient is awake and alert His abdomen is distended but he does have some high-pitched bowel sounds and movement of gas through his bowel on palpation He has no significant tenderness or peritoneal irritation His abdomen is not rigid Constitutional: + ill appearing; + not well developed Eyes: + anicteric sclerae Respiratory: normal respiratory effort; no respiratory distress Cardiovascular: Rate/Rhythm: regular rhythm Musculoskeletal: Head/Neck/Chest: head atraumatic Skin: no rashes, warm and dry Neurologic: awake Psychiatric: Orientation: alert Results & Data ([facility]) Vital Signs (Past 12 Hours) Vital Signs Temp Pulse Resp BP Pulse Ox 09/09/21 18:33 37.0 C 70 20 152/76 H 99 09/09/21 15:01 36.7 C 67 18 168/69 H 97 09/09/21 11:43 36.5 C 67 17 127/64 97 Laboratory Results I reviewed his laboratory values Diagnostic Findings I reviewed his CAT scan films and KUB PG Care Time/CCT Total # of Minutes Spent Total Time Spent with Patient: Total time spent is greater than 50% in coordination of care (as documented) at patient's floor/unit and/or counseling patient: Coding Level of Care Code 09732 Initial Inpt Care Lvl 3 Diagnoses Pseudoobstruction of colon K59.81
--- NOTE | 2021-09-09 21:04 | Hospitalist Progress Note ---
Date of Service September 09, 2021 Assessment & Plan (1) [place] syndrome: Plan: CT abd/pelvis in 07/2021 showed similar findings in comparison to this admission's CT. Patient has never had a colonoscopy. He remains very distended on exam. Passing flatus(?) but definitely NO stool since admission. Appreciate GI consultation; attempts at NG tube placement yesterday unsuccessful. Remains NPO. Cont IV fluids. repeat x-rays today with ongoing severe colonic dilatation. Keep K and mag wnl. Hold oxybutyinin as this can affect GI motility. I spoke with Dr Bentley from general surgery - rectal tube vs surgery are only remaining options. He will see formally in consult. (2) Hyperchloremic metabolic acidosis: Plan: Suspect 2nd to recent diarrhea at the SNF. Cont bicarbonate drip at 75cc/hr with daily BMP. (3) Acute on chronic kidney failure: Plan: BRIANNA. Likely prerenal from poor PO intake, vomiting, diarrhea. Baseline creatinine ~1.11.2. Presenting creatinine - 1.9. Today 1.2. Continue IV fluids. Hold ARB. Repeat BMP in am. (4) Elevated troponin: Plan: hsTrop 197.4 on presentation. NO ISCHEMIC SYMPTOMS pre-admission or while here. Likely myocardial demand ischemia in setting of #1, dehydration, BRIANNA, and HCOM. (5) Diabetes 1.5, managed as type 2: Plan: While NPO we have reduced this lantus to 4 units daily. Novolog SSI. BSGs q6h acceptable. (6) Hypertension: Plan: Controlled. No hypotension while admitted. Holding ARB 2nd to BRIANNA. Holding metoprolol due to bradycardia. (7) Bradycardia: Plan: Sinus zenaida. Holding metoprolol. Keep on tele. (8) Anemia: Plan: Mild, stable. serial labs. (9) Hypertrophic obstructive cardiomyopathy (HOCM): Plan: Avoid dehydration. Avoid excessive afterload reduction. Holding ARB & metoprolol as above but could resume beta nati IV while NPO. (10) BPH with obstruction/lower urinary tract symptoms: Plan: Continue Proscar 5mg daily Continue Flomax 0.4 mg daily. (11) Anxiety and depression: Plan: Continue sertraline 25 mg daily. (12) Spinal stenosis: (13) Status post placement of cardiac pacemaker: Plan: for high-degree AV block based on records intermittent pacing seen on telemetry (14) Hypomagnesemia: Plan: repleted then normalized repeat level in am for stability Plan: called pt's brother this evening - he was not at home I did briefly speak with the brother's will attempt to call in am Admission and Anticipated Discharge Date Admission Date: September 07, 2021 Subjective patient without nausea or emesis states he is passing flatus no documented stools by nursing staff during the visit he was breathing rapidly stated he felt anxious kept saying "I don't know", "I don't know" when asked what was wrong he couldn't tell me asked if he had abd pain he said no, but he was acting like it was hurting him tele - intermittent pacing or sinus zenaida Review of Systems Review of Systems: gen - fatigue, weak cv - no cp pulm - no dyspnea, but was hyperventilating during the visit due to anxiety GI - bloating, distended, some abd pain Physical Exam Physical Exam: gen - frail, sickly, hyperventilating, anxious, almost tearful at one point mouth - MM still quite dry neck - no JVD heart - RR, zenaida, s1 s2 lungs - CTA b/l abd - marked distension, BS+ and high pitched (like previous exams), slightly tender, no HSM ext - no edema, pulses 2+ b/l psych - confused Results & Data Results & Data ([facility]) Vital Signs (Past 12 Hours) Vital Signs Temp Pulse Resp BP Pulse Ox 09/09/21 18:33 37.0 C 70 20 152/76 H 99 09/09/21 15:01 36.7 C 67 18 168/69 H 97 09/09/21 11:43 36.5 C 67 17 127/64 97 Laboratory Results Laboratory Results - last 24 hr 09/09/21 09/09/21 09/09/21 00:51 06:12 06:50 WBC 5.47 RBC 3.21 L Hgb 9.8 L Hct 29.6 L MCV 92.2 MCH 30.5 MCHC 33.1 RDW Std Deviation 53.6 H RDW Coeff of Nona 15.9 H Plt Count 128 L MPV 11.4 H Sodium Potassium Chloride Carbon Dioxide Anion Gap BUN Creatinine Est Cr Clr Drug Dosing Est GFR ( Amer) Est GFR (Non-Af Amer) BUN/Creatinine Ratio Glucose POC Glucose 88 88 Calcium 09/09/21 09/09/21 09/09/21 06:50 11:40 16:32 WBC RBC Hgb Hct MCV MCH MCHC RDW Std Deviation RDW Coeff of Nona Plt Count MPV Sodium 139 Potassium 3.7 Chloride 116 H Carbon Dioxide 15 L Anion Gap 8 BUN 38 H Creatinine 1.27 Est Cr Clr Drug Dosing 53.5 Est GFR ( Amer) 62.7 Est GFR (Non-Af Amer) 54.1 BUN/Creatinine Ratio 29.9 H Glucose 86 POC Glucose 111 H 108 H Calcium 9.0 PG Care Time/CCT Total # of Minutes Spent Total Time Spent with Patient: Total time spent is greater than 50% in coordination of care (as documented) at patient's floor/unit and/or counseling patient: Coding Level of Care Code 74436 Subseq Hosp Care Lvl 2 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
[2021-09-09] MEDS: ATORVASTATIN 40 MG TAB PO SCH (21:49)
[2021-09-09] MEDS: ENOXAPARIN INJ 40 MG/0.4 ML SYR SQ SCH (21:49)
[2021-09-09] MEDS: ACETAMINOPHEN 325 MG TAB PO PRN (21:52)
[2021-09-10] MEDS: INSULIN ASPART PER UNIT SC SCH ×4 (00:26→18:45)
[2021-09-10] MEDS: SODIUM BICARBONATE 8.4% 100 MEQ in WATER, STERILE 1,000 ML IV SCH ×2 (05:40→21:55)
[2021-09-10 06:37] LABS: Hematocrit (blood only) 29.4 % (42-52); Hemoglobin 9.9 g/dL (14.0-18.0); Mean Corpuscular Hemoglobin 30.8 pg (25-34); Mean Corpuscular Hgb Conc 33.7 g/dL (32-36); Mean Corpuscular Volume 91.6 fL (80-100); Mean Platelet Volume 10.9 fL (7.4-10.4); Platelet Count 128 K/uL (130-400); RDW Coefficient of Variation 15.6 % (11.5-14.5); RDW Standard Deviation 52.8 fL (36.4-46.3); Red Blood Count 3.21 M/uL (4.7-6.1); White Blood Count 5.27 K/uL (4.8-10.8)
[2021-09-10 07:00] LABS: BUN Creatinine Ratio 28.3 (10-20); Calcium 8.9 mg/dl (8.5-10.1); Creatinine Clr Calc Pharmacy 55.6 ml/min; Est GFR (African American) 67.2 ml/min; Magnesium 1.4 mg/dl (1.7-2.4); Potassium 3.7 mmol/L (3.5-5.1)
--- NOTE | 2021-09-10 07:08 | Surgery Progress Note ---
Date of Service September 10, 2021 Assessment & Plan (1) Pseudoobstruction of colon: Plan: Should attempt nonsurgical management to its limit Possible PPN/TPN for malnutrition Discussed with GI-possibility of using neostigmine, endoscopic decompression with tube placement Surgical alternative is some type of colonic stoma decompression- cecostomy/transverse colostomy Admission and Anticipated Discharge Date Admission Date: September 07, 2021 Subjective Patient is awake and alert He is in no distress but not much change Review of Systems Review of Systems: All systems reviewed & are unremarkable except as noted in HPI & below Physical Exam Physical Exam: Patient is awake and alert His abdomen is distended but he does have some high-pitched bowel sounds and movement of gas through his bowel on palpation He has no significant tenderness or peritoneal irritation His abdomen is not rigid Constitutional: + ill appearing; + not well developed Eyes: + anicteric sclerae Respiratory: normal respiratory effort; no respiratory distress Cardiovascular: Rate/Rhythm: regular rhythm Musculoskeletal: Head/Neck/Chest: head atraumatic Skin: no rashes, warm and dry Neurologic: awake Psychiatric: Orientation: alert Results & Data ([facility]) Vital Signs (Past 12 Hours) Vital Signs Temp Pulse Resp BP Pulse Ox 09/10/21 03:10 36.4 C L 70 18 144/69 H 97 09/09/21 23:49 36.6 C 73 18 109/57 L 97 PG Care Time/CCT Total # of Minutes Spent Total Time Spent with Patient: Total time spent is greater than 50% in coordination of care (as documented) at patient's floor/unit and/or counseling patient: Coding Level of Care Code 69392 Inpt Consult Level 3 Diagnoses Pseudoobstruction of colon K59.81
[2021-09-10] MEDS: POTASSIUM CHLORIDE CRTAB 20 MEQ TABCR PO SCH ×2 (07:35→15:23)
[2021-09-10] MEDS: ISOSORBIDE MONO EXTENDED REL 60 MG TABCR PO SCH (07:36)
[2021-09-10] MEDS: rOPINIRole HCL 1 MG TABLET PO SCH (07:36)
[2021-09-10] MEDS: ASPIRIN 81 MG ECTAB PO SCH (07:36)
[2021-09-10] MEDS: FINASTERIDE 5 MG TAB PO SCH (07:36)
[2021-09-10] MEDS: ASCORBIC ACID 500 MG TAB PO SCH (07:36)
[2021-09-10] MEDS: CHOLECALCIFEROL 1,000 UNITS 25 MCG TAB PO SCH (07:37)
[2021-09-10] MEDS: CYANOCOBALAMIN (B-12) 500 MCG TABLET PO SCH (07:37)
[2021-09-10] MEDS: allopurinoL 300 MG TAB PO SCH (07:37)
[2021-09-10] MEDS: SERTRALINE HCL 50 MG TABLET PO SCH (07:37)
[2021-09-10] MEDS: TAMSULOSIN HCL 0.4 MG CAP PO SCH ×2 (07:37→15:23)
[2021-09-10] MEDS: NYSTATIN CR 15 GM TUBE EXT SCH (07:38)
[2021-09-10] MEDS: INSULIN GLARGINE SOLOSTAR 100 UNITS/ML 3 ML PEN SC SCH (08:18)
--- NOTE | 2021-09-10 09:46 | History & Physical Bridge Note ---
Date of Service September 10, 2021 History & Physical Bridge Note I have reviewed the History & Physical and in the interval since the performance of the History & Physical I have noted the following changes of clinical significance: Mg 1.4. Will need replacement. Discussed with hospitalist. If Mg replaced and patient's brother is agreeable, can proceed with endoscopic decompression with rectal tube placement today. Supervising Physician Co-Signing Physician Notes Agree with GEN Ho as above Abd: Soft, NT, distended, minimal BS Proceed with colonic decompression today
[2021-09-10] MEDS: MAGNESIUM SULFATE / D5W 1 GM/100 ML BAG IV SCH ×3 (10:08→15:42)
[2021-09-10] MEDS: METOPROLOL TARTRATE 1 MG/ML VIAL IV SCH ×3 (10:53→19:15)
--- NOTE | 2021-09-10 11:06 | Anesthesiology Consultation ---
Date of Service September 10, 2021 Assessment & Plan Chart Review Chart Review: Acceptable Risk for Surgery, Patient NOT seen in Pre Admission Testing and journal entry audit clerk initiated Consults Requested none Proposed Anesthesia Anesthesia Type: MAC Risk / Benefits Reviewed With: PT / POA / Parent / Guardian, Accepts Plan and Informed Consent Obtained History Surgery Operation Date: 09/10/21 17:00 Proposed Procedures p Colonoscopy with Rectal Tube Placement Dr. Talha August Case, DO Height/Weight Height: 5 ft 8 in Weight: 88 kg Allergies Allergy/AdvReac Type Severity Reaction Status Date / Time No Known Allergies Allergy ` Verified 09/07/21 16:27 Medications Home Medications Medication Instructions Recorded Confirmed Last Taken blood sugar diagnostic (OneTouch #100 ea 06/29/20 09/07/21 Unknown Ultra Blue Test Strip) acetaminophen 325 mg tablet 650 mg PO Q4H PRN #30 tab 10/09/20 09/07/21 12/15/20 20:00 650 mg finasteride 5 mg tablet (Proscar) 5 mg PO QAM #30 tab 10/09/20 09/07/21 07/16/21 allopurinol 300 mg tablet 300 mg PO QAM 10/19/20 09/07/21 07/16/21 aspirin 81 mg chewable tablet 81 mg PO QAM 10/19/20 09/07/21 07/16/21 atorvastatin 40 mg tablet 40 mg PO HS #30 tab 10/29/20 09/07/21 07/15/21 docusate sodium 100 mg capsule 100 mg PO Q12H PRN 11/14/20 09/07/21 11/14/20 nystatin 100,000 unit/gram topical 1 applic TOPICAL BID 11/14/20 09/07/21 07/16/21 08:00 cream sertraline 25 mg tablet 25 mg PO QAM 11/14/20 09/07/21 07/16/21 insulin aspart U-100 100 unit/mL 3 unit SC AC #3 ml 11/20/20 09/07/21 07/16/21 08:00 (3 mL) subcutaneous pen (Novolog Flexpen U-100 Insulin aspart) cholecalciferol (vitamin D3) 25 1,000 units PO QAM 12/16/20 09/07/21 07/16/21 mcg (1,000 unit) capsule insulin glargine 100 unit/mL (3 8 unit SC QA 12/16/20 09/07/21 07/16/21 mL) subcutaneous pen (Lantus Solostar U-100 Insulin) polyethylene glycol 3350 17 gram 17 g PO Q12H PRN 12/16/20 09/07/21 12/11/20 08:17 oral powder packet (Miralax) tamsulosin 0.4 mg capsule 0.4 mg PO BID17 12/16/20 09/07/21 07/16/21 08:00 ascorbic acid (vitamin C) 250 mg 250 mg PO QAM 03/01/21 09/07/21 07/16/21 tablet isosorbide mononitrate 60 mg 60 mg PO QA 03/01/21 09/07/21 07/16/21 tablet,extended release 24 hr metoprolol succinate 200 mg 200 mg PO QA 03/01/21 09/07/21 07/16/21 capsule sprinkle, ext. release 24 hr ropinirole 1 mg tablet 1 mg PO QA 03/01/21 09/07/21 07/16/21 losartan 50 mg tablet 50 mg PO QAM 07/16/21 09/07/21 07/16/21 oxybutynin chloride 5 mg tablet 10 mg PO QA 07/16/21 09/07/21 07/16/21 potassium chloride 20 mEq 40 meq PO BID17 07/16/21 09/07/21 07/16/21 08:00 tablet,extended release simethicone 125 mg chewable tablet 125 mg PO Q6H PRN 07/16/21 09/07/21 Unknown Abc Complete Senior 50+ 1 tab PO HS 07/25/21 09/07/21 Unknown cyanocobalamin (vitamin B-12) 1,000 mcg PO QAM 07/25/21 09/07/21 Unknown 1,000 mcg tablet (Vitamin B-12) Active Medications Generic Name Dose Route Start Last Admin Trade Name Freq PRN Reason Stop Dose Admin Acetaminophen 650 mg 09/07/21 21:03 09/09/21 21:52 Acetaminophen 325 Mg Tab PO 10/07/21 21:02 650 mg Q4H PRN Administration [place]/fever/pain Allopurinol 300 mg 09/08/21 09:00 09/10/21 07:37 Allopurinol 300 Mg Tab PO 10/08/21 08:59 300 mg QAM NAA Administration Ascorbic Acid 250 mg 09/08/21 09:00 09/10/21 07:36 Ascorbic Acid 500 Mg Tab PO 10/08/21 08:59 250 mg QAM NAA Administration Aspirin 81 mg 09/08/21 09:00 09/10/21 07:36 Aspirin 81 Mg Ectab PO 10/08/21 08:59 81 mg QAM NAA Administration Atorvastatin Calcium 40 mg 09/07/21 21:45 09/09/21 21:49 Atorvastatin 40 Mg Tab PO 10/07/21 21:44 40 mg HS NAA Administration Cyanocobalamin 1,000 mcg 09/08/21 09:00 09/10/21 07:37 Cyanocobalamin (B-12) 500 Mcg Tablet PO 10/08/21 08:59 1,000 mcg QAM NAA Administration Enoxaparin Sodium 40 mg 09/07/21 22:00 09/09/21 21:49 Enoxaparin Inj 40 Mg/0.4 Ml Syr SQ 10/07/21 21:59 40 mg HS NAA Administration Finasteride 5 mg 09/08/21 09:00 09/10/21 07:36 Finasteride 5 Mg Tab PO 10/08/21 08:59 5 mg QAM NAA Administration Sodium Bicarbonate 100 meq/ 1,100 mls @ 75 mls/hr 09/08/21 08:15 09/10/21 05:40 Sterile Water IV 10/08/21 08:14 75 mls/hr .[id number] NAA Administration Magnesium Sulfate/Dextrose 1 gm in 100 mls @ 50 mls/hr 09/10/21 10:00 09/10/21 10:08 Magnesium Sulfate / D5w IV 09/10/21 15:59 50 mls/hr Q2H NAA Administration Insulin Aspart 0 units 09/08/21 12:00 09/10/21 06:21 Insulin Aspart Per Unit SC 10/08/21 11:59 Not Given Q6 NAA Insulin Glargine 4 units 09/08/21 09:00 09/10/21 08:18 Insulin Glargine Solostar 100 Units/Ml 3 Ml Pen SC 10/08/21 08:59 4 units QAM NAA Administration Isosorbide Mononitrate 60 mg 09/08/21 09:00 09/10/21 07:36 Isosorbide [place] Extended Rel 60 Mg Tabcr PO 10/08/21 08:59 60 mg QAM NAA Administration Metoprolol Tartrate 2.5 mg 09/10/21 09:55 09/10/21 11:02 Metoprolol Tartrate 1 Mg/Ml Vial IV 10/10/21 09:54 Not Given Q6 NAA Nystatin 1 appln 09/07/21 21:30 09/10/21 07:38 Nystatin Cr 15 Gm Tube EXT 10/07/21 21:29 1 appln BID NAA Administration Potassium Chloride 40 meq 09/08/21 09:00 09/10/21 07:35 Potassium Chloride Crtab 20 Meq Tabcr PO 10/08/21 08:59 40 meq BID17 NAA Administration Ropinirole HCl 1 mg 09/08/21 09:00 09/10/21 07:36 Ropinirole Hcl 1 Mg Tablet PO 10/08/21 08:59 1 mg QAM NAA Administration Sertraline HCl 25 mg 09/08/21 09:00 09/10/21 07:37 Sertraline Hcl 50 Mg Tablet PO 10/08/21 08:59 25 mg QAM NAA Administration Tamsulosin HCl 0.4 mg 09/08/21 09:00 09/10/21 07:37 Tamsulosin Hcl 0.4 Mg Cap PO 10/08/21 08:59 0.4 mg BID17 NAA Administration Vitamin D 1,000 units 09/08/21 09:00 09/10/21 07:37 Cholecalciferol 1,000 Units 25 Mcg Tab PO 10/08/21 08:59 1,000 units QAM NAA Administration Past Medical History Medical History Acute hypokalemia Acute hypotension BRIANNA (acute kidney injury) Anemia of chronic disease BPH with obstruction/lower urinary tract symptoms CKD (chronic kidney disease) Deep vein thrombosis (DVT) of left lower extremity Diabetes Elevated troponin Hypertension Hypertrophic obstructive cardiomyopathy (HOCM) Low back pain Mobitz (type) II atrioventricular block Proteinuria Sinus node dysfunction Skin carcinoma Spinal stenosis Subclavian vein thromboembolism, acute Syncope and collapse Past Family History Family History Mother Ovarian cancer Diabetes Father Diabetes Unknown Coronary heart disease Denies family history of Prostate cancer Myocardial infarction Breast cancer Colorectal cancer Past Surgical History Surgical History H/O arthroscopy of knee History of cataract surgery Status post placement of cardiac pacemaker Social History Smoking Status: Never smoker Hx Alcohol Use: No Hx Substance Use: No Physical Exam Vital Signs Last Vital Signs Temp 36.6 C 09/10/21 07:26 Pulse 76 09/10/21 07:26 Resp 18 09/10/21 07:26 BP 136/77 09/10/21 07:26 Pulse Ox 97 09/10/21 07:26 Testing Laboratory Results 09/10/21 06:24 09/10/21 06:24 Hemoglobin A1c 6.9 % (4.5-5.6) H 09/08/21 06:22 Urine Color Yellow 09/07/21 14:52 Urine Appearance Clear (Clear) 09/07/21 14:52 Urine pH 5.0 (4.5-7.5) 09/07/21 14:52 Ur Specific [place] 1.018 (1.000-1.030) 09/07/21 14:52 Urine Protein 2+ (Negative) H 09/07/21 14:52 Urine Glucose (UA) Negative (Negative) 09/07/21 14:52 Urine Ketones Negative (Negative) 09/07/21 14:52 Urine Nitrite Positive (Negative) A 09/07/21 14:52 Ur Leukocyte Esterase Negative (Negative) 09/07/21 14:52 Urine WBC (Auto) 1-5 /hpf (0-5) 09/07/21 14:52 Urine RBC (Auto) 0-4 /hpf (0-4) 09/07/21 14:52 U Hyaline Cast (Auto) 1-5 /lpf (0-5) 09/07/21 14:52 U Epithel Cells (Auto) 0-5 /lpf (0-5) 09/07/21 14:52 Urine Bacteria (Auto) 1+ (Negative) H 09/07/21 14:52 Blood Type O Positive 09/07/21 14:19 Antibody Screen NEGATIVE 09/07/21 14:19 09/10/21 09/10/21 06:13 00:03 POC Glucose 81 95 Electrocardiogram Date: 09/07/21 Atrial-paced rhythm with prolonged AV conduction Right bundle branch block Abnormal ECG When compared with ECG of 25-JUL-2021 09:46, No significant change was found Confirmed by Cheko Argueta ([id number]) on 09/08/2021 9:43:09 PM Chest X-Ray Date: 07/25/21 XR chest 1V portable CLINICAL HISTORY: weakness COMPARISON STUDY: Chest radiograph December 16, 2020 FINDINGS: Dual lead left subclavian pacemaker is in place. Lucency under the right hemidiaphragm are present as within the colon, as shown on prior exams. Cardiomediastinal is noted without evidence for pulmonary edema. Linear left basilar opacity reflects atelectasis. Opacity medial right lung base also likely reflects atelectasis. No pneumothorax or pleural effusion. No consolidation to suggest pneumonia. Lung volumes are diminished, unchanged. IMPRESSION: 1. No acute cardiopulmonary findings. 2. Low lung volumes with left basilar opacity consistent with atelectasis. Opacity at the medial right lung base which also likely reflects atelectasis. 3. Cardiomegaly without evidence for pulmonary edema. Echocardiogram Date: 07/30/21 EF: 60-65% LV Function: normal RWMA: + none Other Findings: + LVH (mod to severe)
[2021-09-10] MEDS ORDERED: MINERAL OIL 30 ML UDC ONE (11:54)
--- NOTE | 2021-09-10 12:56 | GI REPORT ---
Patient Name: Christopher Larkin Procedure Date: 09/10/2021 11:59 AM Date of : 1945 Admit Type: Inpatient Age: 76 Gender: Male Attending MD: Chito Palencia DO Procedure: Colonoscopy Providers: Chito Palencia DO Referring MD: Tremaine Sales Indications: For therapy of Finley's syndrome Medicines: Monitored Anesthesia Care Complications: No immediate complications. Estimated Blood Loss: Estimated blood loss: none. Procedure: Pre-Anesthesia Assessment: - Prior to the procedure, a History and Physical was performed, and patient medications and allergies were reviewed. The patient's tolerance of previous anesthesia was also reviewed. The risks and benefits of the procedure and the sedation options and risks were discussed with the patient. All questions were answered, and informed consent was obtained. Prior Anticoagulants: The patient has taken Lovenox (enoxaparin), last dose was 1 day prior to procedure. ASA Grade Assessment: III - A patient with severe systemic disease. After reviewing the risks and benefits, the patient was deemed in satisfactory condition to undergo the procedure. After I obtained informed consent, the scope was passed under direct vision. Throughout the procedure, the patient's blood pressure, pulse, and oxygen saturations were monitored continuously. The scope was introduced through the anus with the intention of advancing to the ileum. The scope was advanced to the transverse colon before the procedure was aborted. Medications were given. The colonoscopy was performed without difficulty. The patient tolerated the procedure well. The quality of the bowel preparation was poor. No anatomical landmarks were photographed. Findings: The perianal and digital rectal examinations were normal. The colon (entire examined portion) was moderately redundant. Lavage of the area was performed using copious amounts of normal saline, resulting in incomplete clearance with fair visualization. A colonic decompression tube was placed. Impression: - Preparation of the colon was poor. - Redundant colon. - No specimens collected. Recommendation: - [facility]. - Resume previous diet. - Continue present medications. - Check KUB X-ray now Chito Palencia DO 09/10/2021 12:55:34 PM This report has been signed electronically. Note Initiated On: 09/10/2021 11:59 AM Number of Addenda: 0 I attest to the content of the Intraoperative Record and orders documented therein, exceptions below {[id number]}
--- NOTE | 2021-09-10 14:55 | XRay Report ---
KUB HISTORY: Status post placement of a rectal tube. Persistent abdominal distention s/p rectal Decompre ssion tube placement COMPARISON: KUB 09/09/2021 FINDINGS: Status post placement of a rectal tube which is coiled over the rectosigmoid, distal tip pr ojected over the colon within the central abdomen. There is persistent gaseous distention of the colo n which has improved from the prior study, now with transverse dimension measuring up to 8.4 cm, prev iously 11.2 cm. Arterial calcifications. No renal calculi. No ureteral calculi. No pneumoperitoneum or pneumatosis. No fracture. IMPRESSION: Status post placement of a rectal tube with mildly decreased gaseous distention of the colon. ACT 112: Negative or not required by law. The above report was generated using voice recognition software. It may contain grammatical, syntax o r spelling errors. Electronically signed by: Tariq Lo M.D. 09/10/2021 2:54 PM
--- NOTE | 2021-09-10 20:18 | Hospitalist Progress Note ---
Date of Service September 10, 2021 Assessment & Plan (1) [place] syndrome: Plan: Appreciate GI assistance today. s/p rectal decompression tube placement with MARKED improvement in abd distension. Appreciate gen surg assistance. Defer management of rectal tube and diet to GI / Gen Surgery. IV fluids in meantime. Pain meds prn. Replace low mag. (2) Hyperchloremic metabolic acidosis: Plan: Improving. Cont bicarbonate drip at 75cc/hr with daily BMP. (3) Acute on chronic kidney failure: Plan: BRIANNA. Likely prerenal from poor PO intake, vomiting, diarrhea. Baseline creatinine ~1.11.2. Presenting creatinine - 1.9. Today 1.2. Continue IV fluids. Hold ARB. Repeat BMP in am. (4) Elevated troponin: Plan: hsTrop 197.4 on presentation. NO ISCHEMIC SYMPTOMS pre-admission or while here. Likely myocardial demand ischemia in setting of #1, dehydration, BRIANNA, and HCOM. (5) Diabetes 1.5, managed as type 2: Plan: While NPO we have reduced this lantus to 4 units daily. Novolog SSI. BSGs q6h remain acceptable. (6) Hypertension: Plan: Cont metoprolol 2.5mg q6h IV. Cont imdur. (7) Bradycardia: Plan: Resolved resumed metoprolol (8) Anemia: Plan: Mild, stable. serial labs. (9) Hypertrophic obstructive cardiomyopathy (HOCM): Plan: Avoid dehydration. Avoid excessive afterload reduction. BB resumed today - metoprolol 2.5mg IV q6h. (10) BPH with obstruction/lower urinary tract symptoms: Plan: Continue Proscar 5mg daily Continue Flomax 0.4 mg BID (11) Anxiety and depression: Plan: Continue sertraline 25 mg daily. (12) Spinal stenosis: (13) Status post placement of cardiac pacemaker: Plan: for high-degree AV block based on records intermittent pacing seen on telemetry (14) Hypomagnesemia: Plan: contributing to #1 above mag sulfate 3gm IV x 1 repeat mag level am K level wnl today Plan: Miguel, pt's brother, updated twice today - this am prior to colonoscopy, and this evening as well Admission and Anticipated Discharge Date Admission Date: September 07, 2021 Subjective saw pt post-colonoscopy rectal decompression tube was placed during such he was MUCH MORE COMFORTABLE after the tube was placed abd distension/bloating resolved he feels better overall no vomiting no nausea no abd pain Review of Systems Review of Systems: gen - no fevers cv - no cp, no orthopnea pulm - no cough GI - prior to rectal tube placement he had had no stool output Physical Exam Physical Exam: gen - looks much better today, more comfortable, no anxiety mouth - MM still quite dry neck - no JVD heart - RR, zenaida, s1 s2, 2/6 systolic murmur LLSB lungs - CTA b/l abd - distension resolved; rectal tube in place; mild amount of brown stool present in the bag; BS+; high pitched bowel sounds resolved; NT ext - no edema, pulses 2+ b/l Results & Data Results & Data ([facility]) Vital Signs (Past 12 Hours) Vital Signs Temp Pulse Pulse Resp BP Pulse Ox 09/10/21 19:31 36.4 C L 69 18 168/73 H 99 09/10/21 15:18 36.3 C L 73 18 152/73 H 99 09/10/21 15:04 66 09/10/21 13:35 36.1 C L 78 18 134/64 98 09/10/21 13:24 81 16 130/64 98 09/10/21 13:09 74 16 110/55 L 100 09/10/21 12:54 81 16 94/48 L 100 09/10/21 11:46 36.4 C L 72 18 147/69 H 97 09/10/21 11:20 36.4 C L 63 18 135/74 95 Laboratory Results Laboratory Results - last 24 hr 09/10/21 09/10/21 09/10/21 00:03 06:13 06:24 WBC RBC Hgb Hct MCV MCH MCHC RDW Std Deviation RDW Coeff of Nona Plt Count MPV Sodium 138 Potassium 3.7 Chloride 113 H Carbon Dioxide 18 L Anion Gap 7 BUN 34 H Creatinine 1.20 Est Cr Clr Drug Dosing 55.6 Est GFR ( Amer) 67.2 Est GFR (Non-Af Amer) 58.0 BUN/Creatinine Ratio 28.3 H Glucose 81 POC Glucose 95 81 Calcium 8.9 Magnesium 1.4 L 09/10/21 09/10/21 06:24 18:44 WBC 5.27 RBC 3.21 L Hgb 9.9 L Hct 29.4 L MCV 91.6 MCH 30.8 MCHC 33.7 RDW Std Deviation 52.8 H RDW Coeff of Nona 15.6 H Plt Count 128 L MPV 10.9 H Sodium Potassium Chloride Carbon Dioxide Anion Gap BUN Creatinine Est Cr Clr Drug Dosing Est GFR ( Amer) Est GFR (Non-Af Amer) BUN/Creatinine Ratio Glucose POC Glucose 110 H Calcium Magnesium PG Care Time/CCT Total # of Minutes Spent Total Time Spent with Patient: Total time spent is greater than 50% in coordination of care (as documented) at patient's floor/unit and/or counseling patient: Coding Level of Care Code 83635 Subseq Hosp Care Lvl 2 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
[2021-09-10] MEDS: ENOXAPARIN INJ 40 MG/0.4 ML SYR SQ SCH (20:56)
[2021-09-10] MEDS: ATORVASTATIN 40 MG TAB PO SCH (20:57)
[2021-09-11] MEDS: METOPROLOL TARTRATE 1 MG/ML VIAL IV SCH ×4 (00:16→16:05)
[2021-09-11] MEDS: INSULIN ASPART PER UNIT SC SCH ×5 (00:17→22:04)
[2021-09-11] MEDS: NYSTATIN CR 15 GM TUBE EXT SCH ×3 (00:19→22:01)
[2021-09-11 06:55] LABS: Basophils # (auto) 0.01 K/uL (0-0.2); Basophils % (auto) 0.2 %; Eosinophils # (auto) 0.44 K/uL (0-0.5); Hemoglobin 9.4 g/dL (14.0-18.0); Immature Granulocytes # (auto) 0.01 K/uL (0.00-0.02); Immature Granulocytes % (auto) 0.2 %; Lymphocytes # (auto) 1.04 K/uL (1.2-3.4); Lymphocytes % (auto) 16.5 %; Mean Corpuscular Hemoglobin 30.4 pg (25-34); Mean Corpuscular Hgb Conc 33.6 g/dL (32-36); Mean Corpuscular Volume 90.6 fL (80-100); Mean Platelet Volume 10.5 fL (7.4-10.4); Monocytes # (auto) 0.68 K/uL (0.11-0.59); Monocytes % (auto) 10.8 %; Neutrophils # (auto) 4.14 K/uL (1.4-6.5); Neutrophils % (auto) 65.3 %; Platelet Count 128 K/uL (130-400); RDW Coefficient of Variation 15.8 % (11.5-14.5); RDW Standard Deviation 52.4 fL (36.4-46.3); Red Blood Count 3.09 M/uL (4.7-6.1); White Blood Count 6.32 K/uL (4.8-10.8)
[2021-09-11] MEDS: CYANOCOBALAMIN (B-12) 500 MCG TABLET PO SCH (07:14)
[2021-09-11] MEDS: CHOLECALCIFEROL 1,000 UNITS 25 MCG TAB PO SCH (07:14)
[2021-09-11] MEDS: FINASTERIDE 5 MG TAB PO SCH (07:14)
[2021-09-11] MEDS: allopurinoL 300 MG TAB PO SCH (07:14)
[2021-09-11] MEDS: rOPINIRole HCL 1 MG TABLET PO SCH (07:15)
[2021-09-11] MEDS: POTASSIUM CHLORIDE CRTAB 20 MEQ TABCR PO SCH ×2 (07:15→15:31)
[2021-09-11] MEDS: SERTRALINE HCL 50 MG TABLET PO SCH (07:15)
[2021-09-11] MEDS: ASCORBIC ACID 500 MG TAB PO SCH (07:15)
[2021-09-11] MEDS: ASPIRIN 81 MG ECTAB PO SCH (07:16)
[2021-09-11] MEDS: TAMSULOSIN HCL 0.4 MG CAP PO SCH ×2 (07:16→15:31)
[2021-09-11] MEDS: ISOSORBIDE MONO EXTENDED REL 60 MG TABCR PO SCH (07:16)
[2021-09-11 07:20] LABS: BUN Creatinine Ratio 26.2 (10-20); Creatinine Clr Calc Pharmacy 66.6 ml/min; Est GFR (African American) 80.8 ml/min; Est GFR (Non-African American) 69.7 ml/min; Magnesium 1.5 mg/dl (1.7-2.4); Potassium 3.8 mmol/L (3.5-5.1)
[2021-09-11] MEDS: MAGNESIUM SULFATE / D5W 1 GM/100 ML BAG IV SCH ×3 (07:59→11:39)
[2021-09-11] MEDS: INSULIN GLARGINE SOLOSTAR 100 UNITS/ML 3 ML PEN SC SCH (08:00)
--- NOTE | 2021-09-11 11:04 | Surgery Progress Note ---
Date of Service September 11, 2021 Assessment & Plan (1) Pseudoobstruction of colon: Plan: -rectal tube inpalce -diet as tolerated -no surgical intervention required Admission and Anticipated Discharge Date Admission Date: September 07, 2021 Subjective -feeling much better -GI with decompression and tube palcement Review of Systems Constitutional: no fever and no chills Eyes: no problem reported Ear, Nose, Mouth, Throat: no problem reported Respiratory: no cough and no dyspnea Cardiovascular: no chest pain Gastrointestinal: no abdominal pain, no nausea and no vomiting Genitourinary: no dysuria Physical Exam Constitutional: well developed and well nourished Eyes: PERRL, conjunctivae normal, anicteric sclerae ENMT: external ear and nose normal, oropharynx normal Neck: trachea midline Respiratory: normal respiratory effort, lungs clear to auscultation normal respiratory effort Cardiovascular: RRR, no murmur, no edema Gastrointestinal (Abdomen): Inspection/Auscultation: abdomen normal to inspection and + abdomen distended (improving) Percussion/Palpation: abdomen soft; abdomen nontender Results & Data ([facility]) Vital Signs (Past 12 Hours) Vital Signs Temp Pulse Pulse Resp BP BP BP 09/11/21 07:02 56 L 09/11/21 06:03 70 169/86 H 09/11/21 06:01 70 169/86 H 09/11/21 03:04 36.3 C L 61 18 161/68 H 09/11/21 00:16 71 169/70 H 09/11/21 00:15 71 Pulse Ox 09/11/21 07:02 09/11/21 06:03 09/11/21 06:01 09/11/21 03:04 97 09/11/21 00:16 09/11/21 00:15
[2021-09-11] MEDS: SODIUM BICARBONATE 8.4% 100 MEQ in WATER, STERILE 1,000 ML IV SCH (12:01)
--- NOTE | 2021-09-11 19:38 | Hospitalist Progress Note ---
Date of Service September 11, 2021 Assessment & Plan (1) [place] syndrome: Plan: POD #1 - s/p endoscopically placed rectal decompression tube placement with Dr Palencia. MARKED improvement in abd distension and resolution of GI symptoms with such. Appreciate gen surg assistance. They are ok with starting a diet -- start clears today. Defer management of rectal tube and diet to GI / Gen Surgery. Cont IV fluids. Pain meds prn. Replace low mag. Repeat mag/phos/K in am. (2) Hyperchloremic metabolic acidosis: Plan: Resolved. Can likely d/c bicarbonate drip tonight or in am tomorrow. BMP am. (3) Acute on chronic kidney failure: Plan: BRIANNA. Likely prerenal from poor PO intake, vomiting, diarrhea. RESOLVED. Baseline creatinine ~1.11.2. Presenting creatinine - 1.9. Today 1. Continue IV fluids but stop in next 24 hours once PO intake is found to be consistent/robust. Hold ARB. Repeat BMP in am. (4) Elevated troponin: Plan: hsTrop 197.4 on presentation. NO ISCHEMIC SYMPTOMS pre-admission or while here. Likely myocardial demand ischemia in setting of #1, dehydration, BRIANNA, and HCOM. (5) Diabetes 1.5, managed as type 2: Plan: Cont lantus 4 units daily. As diet is advanced will increase the lantus. Novolog SSI. BSGs q6h remain acceptable. (6) Hypertension: Plan: Cont metoprolol 2.5mg q6h IV. Cont imdur. (7) Bradycardia: Plan: Resolved resumed metoprolol (8) Anemia: Plan: Mild, stable. serial labs. b12 level 2020 wnl check a folate in am. (9) Hypertrophic obstructive cardiomyopathy (HOCM): Plan: Avoid dehydration. Avoid excessive afterload reduction. Cont beta nati. (10) BPH with obstruction/lower urinary tract symptoms: Plan: Continue Proscar 5mg daily Continue Flomax 0.4 mg BID (11) Anxiety and depression: Plan: Continue sertraline 25 mg daily. (12) Spinal stenosis: (13) Status post placement of cardiac pacemaker: Plan: for high-degree AV block based on records intermittent pacing seen on telemetry (14) Hypomagnesemia: Plan: contributing to #1 above again low today --- repeat mag sulfate 3gm IV x 1 mag level am K level wnl today recheck K in am also get a phos level Plan: Miguel, pt's brother, updated twice yesterday PT, HARMEET huang requested Admission and Anticipated Discharge Date Admission Date: September 07, 2021 Subjective tele overnight wnl pt continues to rest comfortably no abd pain, nausea, emesis, bloating/distension tolerating clears feels better overall he was confused during the visit -- stated he "hadn't seen his brother" (brother was indeed in for a visit yesterday) Review of Systems Review of Systems: gen - weakness improved; no fever cv - no chest pain pulm - no dyspnea GI - no vomiting; rectal tube in place; draining brown stool Physical Exam Physical Exam: gen - looks good today; confused mouth - MM finally moist today neck - no JVD heart - RR, zenaida, s1 s2, 2/6 systolic murmur LLSB lungs - CTA b/l abd - distension resolved; rectal tube in place; mild amount of brown stool present in the bag; BS+; high pitched bowel sounds resolved; NT ext - no edema, pulses 2+ b/l psych - confused Results & Data Results & Data ([facility]) Vital Signs (Past 12 Hours) Vital Signs Temp Pulse Pulse Resp BP Pulse Ox 09/11/21 18:00 36.8 C 63 20 178/82 H 97 09/11/21 15:00 36.8 C 66 20 179/82 H 98 09/11/21 14:55 54 L Laboratory Results Laboratory Results - last 24 hr 09/11/21 09/11/21 09/11/21 00:14 05:59 06:42 WBC 6.32 RBC 3.09 L Hgb 9.4 L Hct 28.0 L MCV 90.6 MCH 30.4 MCHC 33.6 RDW Std Deviation 52.4 H RDW Coeff of Nona 15.8 H Plt Count 128 L MPV 10.5 H Immature Gran % (Auto) 0.2 Neut % (Auto) 65.3 Lymph % (Auto) 16.5 Winston % (Auto) 10.8 Eos % (Auto) 7.0 Baso % (Auto) 0.2 Neut # (Auto) 4.14 Lymph # (Auto) 1.04 L Winston # (Auto) 0.68 H Eos # (Auto) 0.44 Baso # (Auto) 0.01 Immature Gran # (Auto) 0.01 Sodium Potassium Chloride Carbon Dioxide Anion Gap BUN Creatinine Est Cr Clr Drug Dosing Est GFR ( Amer) Est GFR (Non-Af Amer) BUN/Creatinine Ratio Glucose POC Glucose 87 92 Calcium Magnesium 09/11/21 09/11/21 09/11/21 06:42 07:31 11:30 WBC RBC Hgb Hct MCV MCH MCHC RDW Std Deviation RDW Coeff of Nona Plt Count MPV Immature Gran % (Auto) Neut % (Auto) Lymph % (Auto) Winston % (Auto) Eos % (Auto) Baso % (Auto) Neut # (Auto) Lymph # (Auto) Winston # (Auto) Eos # (Auto) Baso # (Auto) Immature Gran # (Auto) Sodium 137 Potassium 3.8 Chloride 109 H Carbon Dioxide 22 Anion Gap 6 BUN 27 H Creatinine 1.03 Est Cr Clr Drug Dosing 66.6 Est GFR ( Amer) 80.8 Est GFR (Non-Af Amer) 69.7 BUN/Creatinine Ratio 26.2 H Glucose 84 POC Glucose 89 108 H Calcium 8.0 L Magnesium 1.5 L 09/11/21 16:31 WBC RBC Hgb Hct MCV MCH MCHC RDW Std Deviation RDW Coeff of Nona Plt Count MPV Immature Gran % (Auto) Neut % (Auto) Lymph % (Auto) Winston % (Auto) Eos % (Auto) Baso % (Auto) Neut # (Auto) Lymph # (Auto) Winston # (Auto) Eos # (Auto) Baso # (Auto) Immature Gran # (Auto) Sodium Potassium Chloride Carbon Dioxide Anion Gap BUN Creatinine Est Cr Clr Drug Dosing Est GFR ( Amer) Est GFR (Non-Af Amer) BUN/Creatinine Ratio Glucose POC Glucose 155 H Calcium Magnesium PG Care Time/CCT Total # of Minutes Spent Total Time Spent with Patient: Total time spent is greater than 50% in coordination of care (as documented) at patient's floor/unit and/or counseling patient: Coding Level of Care Code 58794 Subseq Hosp Care Lvl 2 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
[2021-09-11] MEDS: ENOXAPARIN INJ 40 MG/0.4 ML SYR SQ SCH (22:01)
[2021-09-11] MEDS: ATORVASTATIN 40 MG TAB PO SCH (22:01)
[2021-09-11] MEDS: ACETAMINOPHEN 325 MG TAB PO PRN (23:42)
[2021-09-12] MEDS ORDERED: hydrALAZINE HCL 20 MG/ML VIAL IV STA (00:10)
[2021-09-12] MEDS: METOPROLOL TARTRATE 1 MG/ML VIAL IV SCH ×2 (01:35→06:31)
[2021-09-12] MEDS: SODIUM BICARBONATE 8.4% 100 MEQ in WATER, STERILE 1,000 ML IV SCH (01:40)
[2021-09-12 06:49] LABS: Hemoglobin 11.2 g/dL (14.0-18.0); Mean Corpuscular Hgb Conc 33.9 g/dL (32-36); Mean Corpuscular Volume 91.4 fL (80-100); Mean Platelet Volume 11.5 fL (7.4-10.4); Platelet Count 151 K/uL (130-400); RDW Coefficient of Variation 15.2 % (11.5-14.5); RDW Standard Deviation 51.1 fL (36.4-46.3); Red Blood Count 3.61 M/uL (4.7-6.1); White Blood Count 7.06 K/uL (4.8-10.8)
[2021-09-12 07:16] LABS: BUN Creatinine Ratio 20.7 (10-20); Calcium 8.6 mg/dl (8.5-10.1); Creatinine Clr Calc Pharmacy 78.8 ml/min; Est GFR (African American) 96.5 ml/min; Est GFR (Non-African American) 83.2 ml/min; Potassium 3.8 mmol/L (3.5-5.1)
[2021-09-12 07:30] LABS: Magnesium 1.6 mg/dl (1.7-2.4); Phosphorus 1.4 mg/dl (2.5-4.9)
[2021-09-12] MEDS ORDERED: POTASSIUM PHOS 3 MMOL/1 ML INFUSION IV STA (08:02)
[2021-09-12] MEDS ORDERED: POTASSIUM PHOSPHATE 24 MMOL in DEXTROSE 5% 500 ML IV ONE (08:15)
[2021-09-12] MEDS: CYANOCOBALAMIN (B-12) 500 MCG TABLET PO SCH (08:32)
[2021-09-12] MEDS: FINASTERIDE 5 MG TAB PO SCH (08:32)
[2021-09-12] MEDS: CHOLECALCIFEROL 1,000 UNITS 25 MCG TAB PO SCH (08:32)
[2021-09-12] MEDS: allopurinoL 300 MG TAB PO SCH (08:32)
[2021-09-12] MEDS: ASPIRIN 81 MG ECTAB PO SCH (08:32)
[2021-09-12] MEDS: rOPINIRole HCL 1 MG TABLET PO SCH (08:33)
[2021-09-12] MEDS: ISOSORBIDE MONO EXTENDED REL 60 MG TABCR PO SCH (08:33)
[2021-09-12] MEDS: TAMSULOSIN HCL 0.4 MG CAP PO SCH ×2 (08:33→16:39)
[2021-09-12] MEDS: ASCORBIC ACID 500 MG TAB PO SCH (08:33)
[2021-09-12] MEDS: INSULIN GLARGINE SOLOSTAR 100 UNITS/ML 3 ML PEN SC SCH (08:34)
[2021-09-12] MEDS: POTASSIUM CHLORIDE CRTAB 20 MEQ TABCR PO SCH ×2 (08:35→16:38)
[2021-09-12] MEDS: NYSTATIN CR 15 GM TUBE EXT SCH ×2 (08:35→21:06)
[2021-09-12] MEDS: SERTRALINE HCL 50 MG TABLET PO SCH (08:36)
[2021-09-12] MEDS: MAGNESIUM SULFATE / D5W 1 GM/100 ML BAG IV SCH ×2 (08:47→10:47)
[2021-09-12] MEDS: INSULIN ASPART PER UNIT SC SCH ×4 (08:48→21:06)
[2021-09-12] MEDS ORDERED: METOPROLOL SUCC 50MG EXT REL TAB PO SCH (09:00)
--- NOTE | 2021-09-12 09:39 | Surgery Progress Note ---
Date of Service September 12, 2021 Assessment & Plan (1) Pseudoobstruction of colon: Plan: -rectal tube per medical team -no surgical issues, will sign off Present on Admission?: Yes Admission and Anticipated Discharge Date Admission Date: September 07, 2021 Subjective -diet on clears but doing well, aspiration risk -no abdominal pain -rectal tube in place Review of Systems Constitutional: no fever and no chills Respiratory: no cough and no dyspnea Cardiovascular: no chest pain Gastrointestinal: no abdominal pain, no nausea and no vomiting Genitourinary: no dysuria Musculoskeletal: + muscle weakness Results & Data ([facility]) Vital Signs (Past 12 Hours) Vital Signs Temp Pulse Pulse Resp BP BP BP 09/12/21 07:14 66 09/12/21 07:00 36.2 C L 59 L 20 163/90 H 09/12/21 06:31 69 159/83 H 09/12/21 06:25 69 159/83 H 09/12/21 03:40 36.9 C 63 20 171/96 H 09/12/21 01:35 56 L 159/85 H 09/12/21 01:20 56 L 159/85 H 09/11/21 23:41 36.5 C 56 L 16 192/91 H 09/11/21 22:20 58 L Pulse Ox 09/12/21 07:14 09/12/21 07:00 95 09/12/21 06:31 09/12/21 06:25 09/12/21 03:40 96 09/12/21 01:35 09/12/21 01:20 09/11/21 23:41 96 09/11/21 22:20
--- NOTE | 2021-09-12 18:35 | Hospitalist Progress Note ---
Date of Service September 12, 2021 Assessment & Plan (1) [place] syndrome: Plan: POD #2 - s/p endoscopically placed rectal decompression tube placement by Dr Palencia. Improved abd exam and clinical symptoms. Appreciate GI and gen surg assistance. Stop IV fluids today. Advance diet to full liquids. Replace low mag; replace low phos. K wnl. Defer to GI & gen surg timing of rectal tube removal. (2) Hyperchloremic metabolic acidosis: Plan: Resolved. d/c IV fluids today. (3) Acute on chronic kidney failure: Plan: BRIANNA. Likely prerenal from poor PO intake, vomiting, diarrhea. RESOLVED. Baseline creatinine ~1.11.2. Presenting creatinine - 1.9. Today 0.8. Stop IVF. Cont to Hold ARB. Repeat BMP in am. (4) Elevated troponin: Plan: hsTrop 197.4 on presentation. NO ISCHEMIC SYMPTOMS pre-admission or while here. Likely myocardial demand ischemia in setting of #1, dehydration, BRIANNA, and HCOM. (5) Diabetes 1.5, managed as type 2: Plan: Cont lantus 4 units daily. As diet is advanced will increase the lantus. Novolog SSI. BSGs q6h remain acceptable. (6) Hypertension: Plan: Change IV metoprolol to PO metoprolol xl 50mg daily. Typically on 200mg/day. Cont imdur. Hold ARB due to BRIANNA. (7) Bradycardia: Plan: Resolved resumed metoprolol (8) Anemia: Plan: Mild, stable. serial labs. b12 level 2020 wnl folate wnl. (9) Hypertrophic obstructive cardiomyopathy (HOCM): Plan: Avoid dehydration. Avoid excessive afterload reduction. Cont beta nati. (10) BPH with obstruction/lower urinary tract symptoms: Plan: Continue Proscar 5mg daily Continue Flomax 0.4 mg BID King is in place d/c this next 24 hours (11) Anxiety and depression: Plan: Continue sertraline 25 mg daily. (12) Spinal stenosis: (13) Status post placement of cardiac pacemaker: Plan: for high-degree AV block based on records intermittent pacing seen on telemetry (14) Hypomagnesemia: Plan: contributing to #1 above again low today --- repeat mag sulfate 2gm IV x 1 mag level am K level wnl today replace low phos (15) Hypophosphatemia: Plan: K-josse 24mmol IV x 1 repeat level am Plan: Miguel, pt's brother, updated by phone this evening PT, OT reina requested dispo - SNF Admission and Anticipated Discharge Date Admission Date: September 07, 2021 Subjective feels good tolerating clears no nausea / emesis no abd pain / bloating / distension rectal tube remains; passing flatus/stool via such tele overnight wnl periods of confusion noted by staff Review of Systems Review of Systems: gen - no fevers cv - no cp, no orthopnea pulm - no cough or congestion Physical Exam Physical Exam: gen - NAD, looks good, mild pleasant confusion mouth - MMM neck - no JVD heart - RRR, s1 s2, 2/6 systolic murmur LLSB lungs - CTA b/l abd - minimal distension; rectal tube in place; mild amount of brown stool present in the bag; BS+; NT ext - no edema, pulses 2+ b/l psych - confused but pleasant Results & Data Results & Data ([facility]) Vital Signs (Past 12 Hours) Vital Signs Temp Pulse Pulse Resp BP BP Pulse Ox 09/12/21 15:15 91 H 09/12/21 15:05 36.7 C 79 16 119/71 98 09/12/21 11:29 36.5 C 70 16 119/72 96 09/12/21 07:14 66 09/12/21 07:00 36.2 C L 59 L 20 163/90 H 95 Laboratory Results Laboratory Results - last 24 hr 09/11/21 09/12/21 09/12/21 19:55 06:07 06:07 WBC 7.06 RBC 3.61 L Hgb 11.2 L Hct 33.0 L MCV 91.4 MCH 31.0 MCHC 33.9 RDW Std Deviation 51.1 H RDW Coeff of Nona 15.2 H Plt Count 151 MPV 11.5 H Sodium 136 Potassium 3.8 Chloride 103 Carbon Dioxide 24 Anion Gap 9 BUN 18 Creatinine 0.87 Est Cr Clr Drug Dosing 78.8 Est GFR ( Amer) 96.5 Est GFR (Non-Af Amer) 83.2 BUN/Creatinine Ratio 20.7 H Glucose 88 POC Glucose 187 H Calcium 8.6 Phosphorus 1.4 L* Magnesium 1.6 L Folate 09/12/21 09/12/21 09/12/21 06:07 07:30 11:14 WBC RBC Hgb Hct MCV MCH MCHC RDW Std Deviation RDW Coeff of Nona Plt Count MPV Sodium Potassium Chloride Carbon Dioxide Anion Gap BUN Creatinine Est Cr Clr Drug Dosing Est GFR ( Amer) Est GFR (Non-Af Amer) BUN/Creatinine Ratio Glucose POC Glucose 97 199 H Calcium Phosphorus Magnesium Folate > 22.30 09/12/21 16:26 WBC RBC Hgb Hct MCV MCH MCHC RDW Std Deviation RDW Coeff of Nona Plt Count MPV Sodium Potassium Chloride Carbon Dioxide Anion Gap BUN Creatinine Est Cr Clr Drug Dosing Est GFR ( Amer) Est GFR (Non-Af Amer) BUN/Creatinine Ratio Glucose POC Glucose 134 H Calcium Phosphorus Magnesium Folate PG Care Time/CCT Total # of Minutes Spent Total Time Spent with Patient: Total time spent is greater than 50% in coordination of care (as documented) at patient's floor/unit and/or counseling patient: Coding Level of Care Code 86032 Subseq Hosp Care Lvl 2 Diagnoses [place] syndrome K59.81 Hyperchloremic metabolic acidosis E87.2 Acute on chronic kidney failure N17.9; N18.9 Elevated troponin R77.8 Diabetes 1.5, managed as type 2 E13.9 Hypertension I10 Bradycardia R00.1 Anemia D64.9 Anemia type: unspecified type Hypertrophic obstructive cardiomyopathy (HOCM) I42.1 BPH with obstruction/lower urinary tract symptoms N40.1; N13.8 Anxiety and depression F41.9; F32.9 Spinal stenosis M48.00 Status post placement of cardiac pacemaker Z95.0 Hypomagnesemia E83.42 Hypophosphatemia E83.39 (1) Anemia Anemia type: unspecified type Qualified Code(s): D64.9 - Anemia, unspecified
[2021-09-12] MEDS: ATORVASTATIN 40 MG TAB PO SCH (21:05)
[2021-09-12] MEDS: ENOXAPARIN INJ 40 MG/0.4 ML SYR SQ SCH (21:06)
[2021-09-13] MEDS: INSULIN ASPART PER UNIT SC SCH ×4 (08:30→20:31)
[2021-09-13] MEDS: METOPROLOL SUCC 50MG EXT REL TAB PO SCH (08:31)
[2021-09-13] MEDS: CHOLECALCIFEROL 1,000 UNITS 25 MCG TAB PO SCH (08:32)
[2021-09-13] MEDS: ISOSORBIDE MONO EXTENDED REL 60 MG TABCR PO SCH (08:33)
[2021-09-13] MEDS: ASCORBIC ACID 500 MG TAB PO SCH (08:33)
[2021-09-13] MEDS: CYANOCOBALAMIN (B-12) 500 MCG TABLET PO SCH (08:33)
[2021-09-13] MEDS: ASPIRIN 81 MG ECTAB PO SCH (08:33)
[2021-09-13] MEDS: FINASTERIDE 5 MG TAB PO SCH (08:34)
[2021-09-13] MEDS: allopurinoL 300 MG TAB PO SCH (08:34)
[2021-09-13] MEDS: POTASSIUM CHLORIDE CRTAB 20 MEQ TABCR PO SCH ×2 (08:36→17:10)
[2021-09-13] MEDS: rOPINIRole HCL 1 MG TABLET PO SCH (08:36)
[2021-09-13] MEDS: INSULIN GLARGINE SOLOSTAR 100 UNITS/ML 3 ML PEN SC SCH (08:38)
[2021-09-13] MEDS: NYSTATIN CR 15 GM TUBE EXT SCH ×2 (08:38→20:32)
[2021-09-13 08:52] LABS: BUN Creatinine Ratio 15.5 (10-20); Calcium 8.2 mg/dl (8.5-10.1); Creatinine Clr Calc Pharmacy 65.5 ml/min; Est GFR (African American) 80.8 ml/min; Est GFR (Non-African American) 69.7 ml/min; Magnesium 1.5 mg/dl (1.7-2.4); Phosphorus 2.8 mg/dl (2.5-4.9); Potassium 3.8 mmol/L (3.5-5.1)
--- NOTE | 2021-09-13 09:13 | Surgery Progress Note ---
Date of Service September 13, 2021 Assessment & Plan (1) [place] syndrome: Plan: Patient with pseudoobstruction of the colon Colonic dysfunction Continue to advance his diet Will try to leave the rectal/decompression tube as long as possible Obviously still concern for recurrent problem Medical management for now Admission and Anticipated Discharge Date Admission Date: September 07, 2021 Subjective Rectal/decompression tube in place Tolerating some liquids Review of Systems Review of Systems: gen - weakness improved; no fever cv - no chest pain pulm - no dyspnea GI - no vomiting; rectal tube in place; draining brown stool Physical Exam Physical Exam: Patient resting comfortably Abdomen is much less distended with some bowel sounds some high-pitched Abdomen is nontender Patient is in no distress Results & Data ([facility]) Vital Signs (Past 12 Hours) Vital Signs Temp Pulse Pulse Resp BP Pulse Ox 09/13/21 07:05 36.6 C 73 18 162/88 H 95 09/13/21 03:03 37.1 C 79 20 172/87 H 94 09/12/21 23:09 37.2 C 81 18 159/87 H 96 09/12/21 22:17 82 PG Care Time/CCT Total # of Minutes Spent Total Time Spent with Patient: Total time spent is greater than 50% in coordination of care (as documented) at patient's floor/unit and/or counseling patient: Coding Level of Care Code 40052 Inpt Consult Level 2 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
--- NOTE | 2021-09-13 10:02 | Communication Note ---
Date of Service: September 13, 2021 Discussed with hospitalist that rectal tube should be pulled today. If symptoms to return, family would need to consider goals of care (ie--surgery vs palli ative measures). GI will sign off at this time. Agree with GEN Ho as above Abd: Sharif, NT Recommend d/c of Rectal tube now
[2021-09-13] MEDS: MAGNESIUM SULFATE / D5W 1 GM/100 ML BAG IV SCH ×3 (10:14→14:10)
[2021-09-13] MEDS: TAMSULOSIN HCL 0.4 MG CAP PO SCH ×2 (10:15→17:11)
[2021-09-13] MEDS: SENNOSIDES 8.8 MG/5 ML UDC PO SCH ×2 (10:15→20:32)
[2021-09-13] MEDS: SERTRALINE HCL 50 MG TABLET PO SCH (10:16)
[2021-09-13] MEDS: aMILoride HCL 5 MG TAB PO SCH (10:57)
--- NOTE | 2021-09-13 20:14 | Hospitalist Progress Note ---
Date of Service September 13, 2021 Assessment & Plan (1) [place] syndrome: Plan: POD #3 - s/p endoscopically placed rectal decompression tube placement by Dr Palencia. Improved abd exam and clinical symptoms. However, some mild distension is returning in comparison to exams over the weekend. Appreciate GI and gen surg assistance. Tolerating full liquids. Defer diet advancement to gen surg. Replace low mag (see below). K wnl. I spoke with both Dr Palencia and Dr Bentley. Dr Palencia advises d/c of tube - will pull the rectal tube. If the patient has recurrent abd distension, N/V, and lack of stool we would need to consider surgical intervention. Poor candidate for such. Dr Bentley to continue to follow. (2) Hyperchloremic metabolic acidosis: Plan: Resolved. d/c IV fluids. (3) Acute on chronic kidney failure: Plan: BRIANNA. Likely prerenal from poor PO intake, vomiting, diarrhea. RESOLVED. Baseline creatinine ~1.11.2. Presenting creatinine - 1.9. Today 1. Stopped IVF. Cont to Hold ARB. Repeat BMP in am. (4) Elevated troponin: Plan: hsTrop 197.4 on presentation. NO ISCHEMIC SYMPTOMS pre-admission or while here. Likely myocardial demand ischemia in setting of #1, dehydration, BRIANNA, and HCOM. (5) Diabetes 1.5, managed as type 2: Plan: Cont lantus 4 units daily. As diet is advanced will increase the lantus. Novolog SSI. BSGs q6h remain acceptable. (6) Hypertension: Plan: Increase metoprolol xl to 100mg daily. Typically on 200mg/day. Cont imdur. Hold ARB due to BRIANNA. (7) Bradycardia: Plan: Resolved resumed metoprolol (8) Anemia: Plan: Mild, stable. serial labs. b12 level 2020 wnl folate wnl. (9) Hypertrophic obstructive cardiomyopathy (HOCM): Plan: Avoid dehydration. Avoid excessive afterload reduction. Cont beta nati. (10) BPH with obstruction/lower urinary tract symptoms: Plan: Continue Proscar 5mg daily Continue Flomax 0.4 mg BID Had had Knig - now removed (11) Anxiety and depression: Plan: Continue sertraline 25 mg daily. (12) Spinal stenosis: (13) Status post placement of cardiac pacemaker: Plan: for high-degree AV block based on records intermittent pacing seen on telemetry (14) Hypomagnesemia: Plan: despite COPIOUS IV replacement the level remains refractory he is not having diarrhea at this time thus ongoing GI losses not a factor he is only on full liquids - thus likely not getting enough via PO intake renal losses possible give mag sulfate 3gm IV x 1 again today start amiloride 5mg daily mag level AM (15) Hypophosphatemia: Plan: repleted/resolved Plan: Miguel, pt's brother, updated by phone this evening I counseled him about #1 above and if he worsens with rectal tube out he might need surgery PT, OT dispo - SNF care d/w Case care d/w Dr Bentley Admission and Anticipated Discharge Date Admission Date: September 07, 2021 Subjective tele overnight - NSR or occasional pacing patient resting comfortably in bed during my visit no nausea or emesis tolerating full liquids -- although staff report he needs assistance to eat staff report that stool is exiting the rectum around the rectal tube minimal gas/stool actually coming out of rectal tube - thus, tube to be d/c today patient denies any abdominal pain during my visit Review of Systems Review of Systems: gen - fatigue cv - no cp pulm - no dyspnea GI - mild bloating noted by patient, but no pain; no N/V Physical Exam Physical Exam: gen - NAD, mild confusion, looks tired mouth - MMM neck - no JVD heart - RRR, s1 s2, 2/6 systolic murmur LLSB lungs - CTA b/l abd - mild distension; rectal tube in place; mild amount of brown stool present in the bag; BS+; NT ext - no edema, pulses 2+ b/l psych - confused but pleasant skin - multiple skin abrasions and lesions on shins & feet Results & Data Results & Data ([facility]) Vital Signs (Past 12 Hours) Vital Signs Temp Pulse Pulse Resp BP Pulse Ox 09/13/21 19:38 37.0 C 65 22 145/57 H 93 09/13/21 15:28 37.1 C 64 18 128/72 99 09/13/21 14:19 69 09/13/21 12:00 36.7 C 65 18 108/69 93 Laboratory Results Laboratory Results - last 24 hr 09/12/21 09/13/21 09/13/21 20:25 07:29 07:39 Sodium 136 Potassium 3.8 Chloride 105 Carbon Dioxide 26 Anion Gap 5 BUN 16 Creatinine 1.03 Est Cr Clr Drug Dosing 65.5 Est GFR ( Amer) 80.8 Est GFR (Non-Af Amer) 69.7 BUN/Creatinine Ratio 15.5 Glucose 96 POC Glucose 129 H 90 Calcium 8.2 L Phosphorus 2.8 D Magnesium 1.5 L 09/13/21 09/13/21 09/13/21 11:37 16:42 20:01 Sodium Potassium Chloride Carbon Dioxide Anion Gap BUN Creatinine Est Cr Clr Drug Dosing Est GFR ( Amer) Est GFR (Non-Af Amer) BUN/Creatinine Ratio Glucose POC Glucose 170 H 135 H 134 H Calcium Phosphorus Magnesium PG Care Time/CCT Total # of Minutes Spent Total Time Spent with Patient: Total time spent is greater than 50% in coordination of care (as documented) at patient's floor/unit and/or counseling patient: Coding Level of Care Code 03786 Subseq Hosp Care Lvl 3 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
[2021-09-13] MEDS: ENOXAPARIN INJ 40 MG/0.4 ML SYR SQ SCH (20:31)
[2021-09-13] MEDS: ATORVASTATIN 40 MG TAB PO SCH (20:31)
[2021-09-14 07:17] LABS: BUN Creatinine Ratio 17.1 (10-20); Calcium 8.1 mg/dl (8.5-10.1); Est GFR (African American) 73.8 ml/min; Est GFR (Non-African American) 63.7 ml/min; Magnesium 1.8 mg/dl (1.7-2.4); Potassium 3.3 mmol/L (3.5-5.1)
[2021-09-14] MEDS ORDERED: MAGNESIUM SULFATE / D5W 1 GM/100 ML BAG IV ONE (07:30)
[2021-09-14] MEDS: INSULIN ASPART PER UNIT SC SCH ×4 (08:19→21:53)
[2021-09-14] MEDS: rOPINIRole HCL 1 MG TABLET PO SCH (08:20)
[2021-09-14] MEDS: allopurinoL 300 MG TAB PO SCH (08:20)
[2021-09-14] MEDS: TAMSULOSIN HCL 0.4 MG CAP PO SCH ×2 (08:21→16:19)
[2021-09-14] MEDS: POTASSIUM CHLORIDE CRTAB 20 MEQ TABCR PO SCH ×2 (08:21→16:19)
[2021-09-14] MEDS: SENNOSIDES 8.8 MG/5 ML UDC PO SCH ×2 (08:21→21:54)
[2021-09-14] MEDS: METOPROLOL SUCC 50MG EXT REL TAB PO SCH (08:22)
[2021-09-14] MEDS: ISOSORBIDE MONO EXTENDED REL 60 MG TABCR PO SCH (08:22)
[2021-09-14] MEDS: ASCORBIC ACID 500 MG TAB PO SCH (08:22)
[2021-09-14] MEDS: ASPIRIN 81 MG ECTAB PO SCH (08:24)
[2021-09-14] MEDS: FINASTERIDE 5 MG TAB PO SCH (08:24)
[2021-09-14] MEDS: CYANOCOBALAMIN (B-12) 500 MCG TABLET PO SCH (08:24)
[2021-09-14] MEDS: aMILoride HCL 5 MG TAB PO SCH (08:24)
[2021-09-14] MEDS: CHOLECALCIFEROL 1,000 UNITS 25 MCG TAB PO SCH (08:25)
[2021-09-14] MEDS: SERTRALINE HCL 50 MG TABLET PO SCH (08:26)
[2021-09-14] MEDS: NYSTATIN CR 15 GM TUBE EXT SCH ×2 (08:26→21:54)
[2021-09-14] MEDS: INSULIN GLARGINE SOLOSTAR 100 UNITS/ML 3 ML PEN SC SCH (08:28)
--- NOTE | 2021-09-14 09:35 | XRay Report ---
XR KUB/Abdomen 1 view CLINICAL HISTORY: pseudoobstruction. COMPARISON STUDY: 09/10/2021 TECHNIQUE: 2 supine radiographs of the abdomen FINDINGS: Compared to previous examination, rectal tube has been removed. There are air-filled loops of both la rge and small bowel without evidence for disproportionate dilatation or definite obstruction. There i s no evidence for organomegaly or gross intra-abdominal mass. No abnormal calcifications are seen bianka ng the course of the urinary tracts bilaterally. No acute osseous pathology. IMPRESSION: 1. Air-filled loops of both large and small bowel without evidence for disproportionate dilatation or obstruction. No evidence for fecal impaction. ACT 112: Negative or not required by law. Electronically signed by: Jefferson Ribeiro M.D. 09/14/2021 9:33 AM
--- NOTE | 2021-09-14 18:32 | Hospitalist Progress Note ---
Date of Service September 14, 2021 Assessment & Plan (1) [place] syndrome: Plan: Initially had endoscopically placed rectal decompression tube placement by Dr Palencia. Decompressed and now removed on 09/13 Adv diet to low fiber today-tolerating so far repeat KUB without obstruction but with dilated bowel throughout Improved abd exam and clinical symptoms. Appreciate GI and gen surg assistance. D/w Dr. Bentley--> plan for colostomy if distended colon returns continue senna syrup, Miralax prn (2) Hyperchloremic metabolic acidosis: Plan: Resolved. (3) Acute on chronic kidney failure: Plan: BRIANNA. Likely prerenal from poor PO intake, vomiting, diarrhea. RESOLVED with IVFs Baseline creatinine ~1.11.2. Presenting creatinine - 1.9. Today 1.1 Cont to Hold ARB. Repeat BMP in am. (4) Elevated troponin: Plan: hsTrop 197.4 on presentation. NO ISCHEMIC SYMPTOMS pre-admission or while here. Likely myocardial demand ischemia in setting of Cece's, dehydration, BRIANNA, and HCOM. (5) Diabetes 1.5, managed as type 2: Plan: Cont lantus 4 units daily. As diet is advanced may need to increase the lantus. Novolog SSI. (6) Hypertension: Plan: BPs controlled Increased metoprolol xl to 100mg daily. Typically on 200mg/day. Cont imdur. Hold ARB due to BRIANNA. -now on amiloride (7) Bradycardia: Plan: Resolved resumed metoprolol has a pacer in place no need for further tele monitoring (8) Anemia: Plan: Mild, stable. serial labs. b12 level 2020 wnl folate wnl. (9) Hypertrophic obstructive cardiomyopathy (HOCM): Plan: Avoid dehydration. Avoid excessive afterload reduction. Cont beta nati. (10) BPH with obstruction/lower urinary tract symptoms: Plan: Continue Proscar 5mg daily Continue Flomax 0.4 mg BID Had King - now removed (11) Anxiety and depression: Plan: Continue sertraline 25 mg daily. (12) Spinal stenosis: (13) Status post placement of cardiac pacemaker: Plan: for high-degree AV block based on records intermittent pacing seen on telemetry (14) Electrolyte abnormality: Plan: HYpomagnesemia-->despite IV replacement the level remained refractory he is not having diarrhea at this time thus ongoing GI losses not a factor he is only on full liquids - thus likely not getting enough via PO intake renal losses possible -now improved with starting amiloride -give 1 gram IV magnesium today Hypokalemia-replace with po KCl 40 meq po bid FOllow BMP, Mag levels Plan: dispo - SNF when medically stable--> possibly in next 1-2 days if continues to do well Admission and Anticipated Discharge Date Admission Date: September 07, 2021 Subjective Pt reports feeling fine, no abd pain. Had a large BM today as per nursing. Ate all of his low fiber diet and denies nausea. No CP, SOB. Tele with sinus rhythm, 1st degree AVB, PACs, paced rhythm, rates 50-60s Review of Systems Review of Systems: All systems reviewed & are unremarkable except as noted in HPI & below Physical Exam Constitutional: WD/WN, vitals as above Eyes: + anicteric sclerae Neck: trachea midline, no thyromegaly Respiratory: normal respiratory effort, lungs clear to auscultation Cardiovascular: RRR, no murmur, no edema Chest (Breasts): Chest: normal inspection of chest Gastrointestinal (Abdomen): normal bowel sounds, soft, nontender, no hepatosplenomegaly Musculoskeletal: Extremities: extremities normal to inspection; no cyanosis and no clubbing Skin: no rashes, warm and dry Neurologic: moves all extremities and awake; no focal motor deficits Lymphatic: no lymphedema Results & Data Results & Data ([facility]) Vital Signs (Past 12 Hours) Vital Signs Temp Pulse Pulse Resp BP BP Pulse Ox 09/14/21 14:27 36.9 C 52 L 18 133/71 96 09/14/21 14:18 52 L 09/14/21 11:07 36.4 C L 55 L 18 127/72 99 09/14/21 08:25 60 09/14/21 07:19 36.7 C 55 L 18 173/78 H 95 Laboratory Results 09/14/21 09/14/21 09/14/21 Range/Units 16:50 11:41 07:51 Sodium (136-145) mmol/L Potassium (3.5-5.1) mmol/L Chloride (98-107) mmol/L Carbon Dioxide (21-32) mmol/L Anion Gap (3-11) BUN (6-23) mg/dl Creatinine (0.6-1.4) mg/dl Est Cr Clr Drug Dosing ml/min Est GFR ( Amer) ml/min Est GFR (Non-Af Amer) ml/min BUN/Creatinine Ratio (10-20) Glucose (70-99(Fasting)) mg/dl POC Glucose 164 H 132 H 131 H (70-99) mg/dl Calcium (8.5-10.1) mg/dl Magnesium (1.7-2.4) mg/dl 09/14/21 09/13/21 Range/Units 06:18 20:01 Sodium 135 L (136-145) mmol/L Potassium 3.3 L (3.5-5.1) mmol/L Chloride 106 (98-107) mmol/L Carbon Dioxide 23 (21-32) mmol/L Anion Gap 6 (3-11) BUN 19 (6-23) mg/dl Creatinine 1.11 (0.6-1.4) mg/dl Est Cr Clr Drug Dosing 61.0 ml/min Est GFR ( Amer) 73.8 ml/min Est GFR (Non-Af Amer) 63.7 ml/min BUN/Creatinine Ratio 17.1 (10-20) Glucose 101 H (70-99(Fasting)) mg/dl POC Glucose 134 H (70-99) mg/dl Calcium 8.1 L (8.5-10.1) mg/dl Magnesium 1.8 (1.7-2.4) mg/dl PG Care Time/CCT Total # of Minutes Spent Total Time Spent with Patient: Total time spent is greater than 50% in coordination of care (as documented) at patient's floor/unit and/or counseling patient: Coding Level of Care Code 28397 Subseq Hosp Care Lvl 2 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
[2021-09-14] MEDS: ATORVASTATIN 40 MG TAB PO SCH (21:54)
[2021-09-14] MEDS: ENOXAPARIN INJ 40 MG/0.4 ML SYR SQ SCH (21:54)
[2021-09-15 07:40] LABS: Basophils # (auto) 0.01 K/uL (0-0.2); Basophils % (auto) 0.2 %; Eosinophils # (auto) 0.66 K/uL (0-0.5); Eosinophils % (auto) 10.5 %; Hematocrit (blood only) 30.5 % (42-52); Hemoglobin 9.9 g/dL (14.0-18.0); Immature Granulocytes # (auto) 0.02 K/uL (0.00-0.02); Immature Granulocytes % (auto) 0.3 %; Lymphocytes # (auto) 1.26 K/uL (1.2-3.4); Mean Corpuscular Hemoglobin 30.4 pg (25-34); Mean Corpuscular Hgb Conc 32.5 g/dL (32-36); Mean Corpuscular Volume 93.6 fL (80-100); Mean Platelet Volume 11.2 fL (7.4-10.4); Monocytes # (auto) 0.69 K/uL (0.11-0.59); Neutrophils # (auto) 3.65 K/uL (1.4-6.5); Platelet Count 153 K/uL (130-400); RDW Coefficient of Variation 15.3 % (11.5-14.5); RDW Standard Deviation 52.9 fL (36.4-46.3); Red Blood Count 3.26 M/uL (4.7-6.1); White Blood Count 6.29 K/uL (4.8-10.8)
[2021-09-15 07:58] LABS: Albumin Globulin Ratio 1.1 (0.9-2); Albumin Level 2.9 gm/dl (3.4-5.0); Bilirubin,Total 0.8 mg/dl (0.2-1.0); Calcium 8.1 mg/dl (8.5-10.1); Creatinine Clr Calc Pharmacy 67.7 ml/min; Est GFR (African American) 83.8 ml/min; Est GFR (Non-African American) 72.3 ml/min; Globulin 2.7 gm/dl (2.5-4.0); Magnesium 1.7 mg/dl (1.7-2.4); Phosphorus 2.8 mg/dl (2.5-4.9); Potassium 3.5 mmol/L (3.5-5.1); Total Protein 5.6 gm/dl (6.0-8.3)
--- NOTE | 2021-09-15 08:08 | Surgery Progress Note ---
Date of Service September 15, 2021 Assessment & Plan (1) Pseudo-obstruction of colon: Plan: Patient with colonic dysfunction-chronic in nature Currently tolerating a regular diet Loose bowel movements No indication for urgent surgery right now I did discuss his situation with his brother Miguel-currently situation is not life-threatening Does not favor surgery unless absolutely necessary Major surgical intervention would include diversion with colostomy-patient would likely tolerate the operation however his postop course May be difficult with guarded long-term prognosis Urgent/emergent surgery only if patient develops peritonitis which would be suspected from colonic dilatation Admission and Anticipated Discharge Date Admission Date: September 07, 2021 Subjective Nurse told me that the patient sat up and ate his regular diet by himself Patient with positive attitude and in no distress Abdomen is soft with only mild distention His KUB continues to show distended small bowel and colon Review of Systems Review of Systems: All systems reviewed & are unremarkable except as noted in HPI & below Physical Exam Physical Exam: Patient resting comfortably Abdomen is much less distended with some bowel sounds some high-pitched Abdomen is nontender Patient is in no distress Results & Data ([facility]) Vital Signs (Past 12 Hours) Vital Signs Temp Pulse Resp BP Pulse Ox 09/15/21 07:45 36.3 C L 50 L 16 187/87 H 97 09/15/21 03:36 47 L 18 09/14/21 22:47 36.6 C 51 L 18 134/76 99 PG Care Time/CCT Total # of Minutes Spent Total Time Spent with Patient: Total time spent is greater than 50% in coordination of care (as documented) at patient's floor/unit and/or counseling patient: Coding Level of Care Code 52394 Inpt Consult Level 3 Diagnoses Pseudo-obstruction of colon K59.81
[2021-09-15] MEDS: INSULIN ASPART PER UNIT SC SCH ×4 (08:26→20:49)
[2021-09-15] MEDS: NYSTATIN CR 15 GM TUBE EXT SCH ×2 (08:27→20:48)
[2021-09-15] MEDS: SENNOSIDES 8.8 MG/5 ML UDC PO SCH ×2 (08:27→20:49)
[2021-09-15] MEDS: TAMSULOSIN HCL 0.4 MG CAP PO SCH ×2 (08:28→16:22)
[2021-09-15] MEDS: CYANOCOBALAMIN (B-12) 500 MCG TABLET PO SCH (08:28)
[2021-09-15] MEDS: POTASSIUM CHLORIDE CRTAB 20 MEQ TABCR PO SCH ×2 (08:28→16:22)
[2021-09-15] MEDS: ISOSORBIDE MONO EXTENDED REL 60 MG TABCR PO SCH (08:28)
[2021-09-15] MEDS: aMILoride HCL 5 MG TAB PO SCH (08:29)
[2021-09-15] MEDS: ASPIRIN 81 MG ECTAB PO SCH (08:29)
[2021-09-15] MEDS: rOPINIRole HCL 1 MG TABLET PO SCH (08:29)
[2021-09-15] MEDS: FINASTERIDE 5 MG TAB PO SCH (08:29)
[2021-09-15] MEDS: CHOLECALCIFEROL 1,000 UNITS 25 MCG TAB PO SCH (08:29)
[2021-09-15] MEDS: SERTRALINE HCL 50 MG TABLET PO SCH (08:34)
[2021-09-15] MEDS: allopurinoL 300 MG TAB PO SCH (08:34)
[2021-09-15] MEDS: ASCORBIC ACID 500 MG TAB PO SCH (08:34)
[2021-09-15] MEDS: INSULIN GLARGINE SOLOSTAR 100 UNITS/ML 3 ML PEN SC SCH (08:47)
[2021-09-15] MEDS ORDERED: METOPROLOL SUCC 25MG EXT REL TAB PO SCH (09:00)
[2021-09-15] MEDS ORDERED: MAGNESIUM SULFATE / D5W 1 GM/100 ML BAG IV ONE (09:07)
--- NOTE | 2021-09-15 10:35 | XRay Report ---
XR KUB/Abdomen 1 view CLINICAL HISTORY: f/u colon distension. COMPARISON STUDY: 09/14/2021 TECHNIQUE: Multiple supine views of the abdomen FINDINGS: Compared to the previous examination, mild gaseous distention of the colon is again seen and essentia lly unchanged. There is no air present within the rectum. There is again no fecal impaction. A few ai r-filled loops of small bowel are again seen as well without evidence for disproportionate dilatation or obstruction. There is no evidence for organomegaly or gross intra-abdominal mass. No abnormal jeremy cifications are seen along the course of the urinary tracts bilaterally. No acute osseous pathology. IMPRESSION: 1. No significant interval change in the previous study with mild gaseous distention of the colon aga in seen. ACT 112: Negative or not required by law. Electronically signed by: Jefferson Ribeiro M.D. 09/15/2021 10:33 AM
[2021-09-15] MEDS ORDERED: METOPROLOL SUCC 25MG EXT REL TAB PO ONE (14:31)
--- NOTE | 2021-09-15 14:47 | Hospitalist Progress Note ---
Date of Service September 15, 2021 Assessment & Plan (1) [place] syndrome: Plan: Initially had endoscopically placed rectal decompression tube placement by Dr Palencia. Decompressed and then tube removed on 09/13 Adv diet to low fiberand tolerating so far. Had large BM on 09/14 repeat KUB without obstruction but with dilated bowel throughout. KUB 09/15 similar Improved abd exam and clinical symptoms. Appreciate GI and gen surg assistance. D/w Dr. Bentley--> plan for colostomy if distended colon returns only if in more emergent life-threatening situation ie sepsis,perforated bowel, ischemic bowel etc as per discussion with patient and his POA/Brother continue senna syrup, Miralax prn Follow clinically after discharge and return to hospital if recurs (2) Acute on chronic kidney failure: Plan: RBIANNA. Likely prerenal from poor PO intake, vomiting, diarrhea. RESOLVED with IVFs Baseline creatinine ~1.11.2. Presenting creatinine - 1.9. Today 1.0 Cont to Hold ARB but can restart tomorrow as BPs are elevated Repeat BMP in am. (3) Elevated troponin: Plan: hsTrop 197.4 on presentation. NO ISCHEMIC SYMPTOMS pre-admission or while here. Likely myocardial demand ischemia in setting of Cece's, dehydration, BRIANNA, and HCOM. (4) Diabetes 1.5, managed as type 2: Plan: Cont lantus 4 units daily. Glucose well controlled here As po intake improves, may need to increase the lantus. Novolog SSI. (5) Hypertension: Plan: BPs elevated continue metoprolol xl 100mg daily. Typically on 200mg/day but lowered on admission for hypotension initially Cont imdur. held ARB due to BRIANNA but now restart tomorrow -now on amiloride as well slowly increase metoprolol back to 200mg as tolerated-he has a pacer set at low end of 50 bpm (6) Anemia: Plan: Mild, stable. serial labs. b12 level 2020 wnl folate wnl. (7) Hypertrophic obstructive cardiomyopathy (HOCM): Plan: Avoid dehydration. Avoid excessive afterload reduction. Cont beta nati. (8) BPH with obstruction/lower urinary tract symptoms: Plan: Continue Proscar 5mg daily Continue Flomax 0.4 mg BID Had King - now removed (9) Anxiety and depression: Plan: Continue sertraline 25 mg daily. (10) Spinal stenosis: (11) Status post placement of cardiac pacemaker: Plan: for high-degree AV block based on records intermittent pacing seen on telemetry follows with Dr. Prieto routinely of [facility] paces at 50 HR (12) Electrolyte abnormality: Plan: HYpomagnesemia-->despite IV replacement the level remained refractory he is not having diarrhea at this time thus ongoing GI losses not a factor renal losses possible -now improved with starting amiloride and improved po intake, but remains low normal -give 2 gram IV magnesium today Hypokalemia-continue to replace with po KCl 40 meq po bid FOllow BMP, Mag, phos levels Plan: dispo - SNF -is now medically stable-asked CM to ask for insurance auth to return to [facility] hopefully tomorrow. He is a bed hold there Admission and Anticipated Discharge Date Admission Date: September 07, 2021 Subjective Pt reports feeling well. No nausea or abd pain. He isn't passing as much flatus today as yesterday and no BM yet today but feels like he might go soon. No other concerns. Tele with sinus zenaida into the 50s, paces when goes into high 40s. Review of Systems Review of Systems: All systems reviewed & are unremarkable except as noted in HPI & below Physical Exam Constitutional: WD/WN, vitals as above Eyes: + anicteric sclerae Neck: trachea midline, no thyromegaly Respiratory: normal respiratory effort, lungs clear to auscultation Cardiovascular: RRR, no murmur, no edema Chest (Breasts): Chest: normal inspection of chest Gastrointestinal (Abdomen): normal bowel sounds, soft, nontender, no hepatosplenomegaly Musculoskeletal: Extremities: extremities normal to inspection; no cyanosis and no clubbing Skin: no rashes, warm and dry Neurologic: moves all extremities and awake; no focal motor deficits Lymphatic: no lymphedema Results & Data Results & Data ([facility]) Vital Signs (Past 12 Hours) Vital Signs Temp Pulse Resp BP BP Pulse Ox 09/15/21 10:30 52 L 171/84 H 09/15/21 08:38 52 L 181/72 H 09/15/21 07:45 36.3 C L 50 L 16 187/87 H 97 09/15/21 03:36 47 L 18 Laboratory Results 09/15/21 09/15/21 09/15/21 Range/Units 16:27 11:50 07:58 WBC (4.8-10.8) K/uL RBC (4.7-6.1) M/uL Hgb (14.0-18.0) g/dL Hct (42-52) % MCV (80-100) fL MCH (25-34) pg MCHC (32-36) g/dL RDW Std Deviation (36.4-46.3) fL RDW Coeff of Nona (11.5-14.5) % Plt Count (130-400) K/uL MPV (7.4-10.4) fL Immature Gran % (Auto) % Neut % (Auto) % Lymph % (Auto) % [place] % (Auto) % Eos % (Auto) % Baso % (Auto) % Neut # (Auto) (1.4-6.5) K/uL Lymph # (Auto) (1.2-3.4) K/uL [place] # (Auto) (0.11-0.59) K/uL Eos # (Auto) (0-0.5) K/uL Baso # (Auto) (0-0.2) K/uL Immature Gran # (Auto) (0.00-0.02) K/uL Sodium (136-145) mmol/L Potassium (3.5-5.1) mmol/L Chloride (98-107) mmol/L Carbon Dioxide (21-32) mmol/L Anion Gap (3-11) BUN (6-23) mg/dl Creatinine (0.6-1.4) mg/dl Est Cr Clr Drug Dosing ml/min Est GFR ( Amer) ml/min Est GFR (Non-Af Amer) ml/min BUN/Creatinine Ratio (10-20) Glucose (70-99(Fasting)) mg/dl POC Glucose 133 H 159 H 124 H (70-99) mg/dl Calcium (8.5-10.1) mg/dl Phosphorus (2.5-4.9) mg/dl Magnesium (1.7-2.4) mg/dl Total Bilirubin (0.2-1.0) mg/dl AST (13-39) U/L ALT (7-52) U/L Alkaline Phosphatase (34-104) U/L Total Protein (6.0-8.3) gm/dl Albumin (3.4-5.0) gm/dl Globulin (2.5-4.0) gm/dl Albumin/Globulin Ratio (0.9-2) 09/15/21 09/15/21 09/14/21 Range/Units 07:03 07:03 20:44 WBC 6.29 (4.8-10.8) K/uL RBC 3.26 L (4.7-6.1) M/uL Hgb 9.9 L (14.0-18.0) g/dL Hct 30.5 L (42-52) % MCV 93.6 (80-100) fL MCH 30.4 (25-34) pg MCHC 32.5 (32-36) g/dL RDW Std Deviation 52.9 H (36.4-46.3) fL RDW Coeff of Nona 15.3 H (11.5-14.5) % Plt Count 153 (130-400) K/uL MPV 11.2 H (7.4-10.4) fL Immature Gran % (Auto) 0.3 % Neut % (Auto) 58.0 % Lymph % (Auto) 20.0 % [place] % (Auto) 11.0 % Eos % (Auto) 10.5 % Baso % (Auto) 0.2 % Neut # (Auto) 3.65 (1.4-6.5) K/uL Lymph # (Auto) 1.26 (1.2-3.4) K/uL [place] # (Auto) 0.69 H (0.11-0.59) K/uL Eos # (Auto) 0.66 H (0-0.5) K/uL Baso # (Auto) 0.01 (0-0.2) K/uL Immature Gran # (Auto) 0.02 (0.00-0.02) K/uL Sodium 136 (136-145) mmol/L Potassium 3.5 (3.5-5.1) mmol/L Chloride 108 H (98-107) mmol/L Carbon Dioxide 22 (21-32) mmol/L Anion Gap 6 (3-11) BUN 19 (6-23) mg/dl Creatinine 1.00 (0.6-1.4) mg/dl Est Cr Clr Drug Dosing 67.7 ml/min Est GFR ( Amer) 83.8 ml/min Est GFR (Non-Af Amer) 72.3 ml/min BUN/Creatinine Ratio 19.0 (10-20) Glucose 109 H (70-99(Fasting)) mg/dl POC Glucose 119 H (70-99) mg/dl Calcium 8.1 L (8.5-10.1) mg/dl Phosphorus 2.8 (2.5-4.9) mg/dl Magnesium 1.7 (1.7-2.4) mg/dl Total Bilirubin 0.8 (0.2-1.0) mg/dl AST 25 (13-39) U/L ALT 10 (7-52) U/L Alkaline Phosphatase 103 (34-104) U/L Total Protein 5.6 L (6.0-8.3) gm/dl Albumin 2.9 L (3.4-5.0) gm/dl Globulin 2.7 (2.5-4.0) gm/dl Albumin/Globulin Ratio 1.1 (0.9-2) Diagnostic Findings KUB X-Ray 09/15/21 07:55 XR KUB/Abdomen 1 view CLINICAL HISTORY: f/u colon distension. COMPARISON STUDY: 09/14/2021 TECHNIQUE: Multiple supine views of the abdomen FINDINGS: Compared to the previous examination, mild gaseous distention of the colon is again seen and essentially unchanged. There is no air present within the rectum. There is again no fecal impaction. A few air-filled loops of small bowel are again seen as well without evidence for disproportionate dilatation or obstruction. There is no evidence for organomegaly or gross intra-abdominal mass. No abnormal calcifications are seen along the course of the urinary tracts bilaterally. No acute osseous pathology. IMPRESSION: 1. No significant interval change in the previous study with mild gaseous distention of the colon again seen. ACT 112: Negative or not required by law. Electronically signed by: Jefferson Ribeiro M.D. 09/15/2021 10:33 AM PG Care Time/CCT Total # of Minutes Spent Total Time Spent with Patient: Total time spent is greater than 50% in coordination of care (as documented) at patient's floor/unit and/or counseling patient: Coding Level of Care Code 49206 Subseq Hosp Care Lvl 2 Diagnoses [place] syndrome K59.81 Acute on chronic kidney failure N17.9; N18.9 Elevated troponin R77.8 Diabetes 1.5, managed as type 2 E13.9 Hypertension I10 Anemia D64.9 Anemia type: unspecified type Hypertrophic obstructive cardiomyopathy (HOCM) I42.1 BPH with obstruction/lower urinary tract symptoms N40.1; N13.8 Anxiety and depression F41.9; F32.9 Spinal stenosis M48.00 Status post placement of cardiac pacemaker Z95.0 Electrolyte abnormality E87.8 (1) Anemia Anemia type: unspecified type Qualified Code(s): D64.9 - Anemia, unspecified
[2021-09-15] MEDS: ENOXAPARIN INJ 40 MG/0.4 ML SYR SQ SCH (20:48)
[2021-09-15] MEDS: ATORVASTATIN 40 MG TAB PO SCH (20:48)
[2021-09-16] MEDS: ACETAMINOPHEN 325 MG TAB PO PRN (02:49)
[2021-09-16] MEDS: INSULIN ASPART PER UNIT SC SCH ×2 (08:37→12:43)
[2021-09-16] MEDS: NYSTATIN CR 15 GM TUBE EXT SCH (08:38)
[2021-09-16] MEDS: SENNOSIDES 8.8 MG/5 ML UDC PO SCH (08:38)
[2021-09-16] MEDS: allopurinoL 300 MG TAB PO SCH (08:39)
[2021-09-16] MEDS: POTASSIUM CHLORIDE CRTAB 20 MEQ TABCR PO SCH (08:39)
[2021-09-16] MEDS: CHOLECALCIFEROL 1,000 UNITS 25 MCG TAB PO SCH (08:39)
[2021-09-16] MEDS: FINASTERIDE 5 MG TAB PO SCH (08:40)
[2021-09-16] MEDS: aMILoride HCL 5 MG TAB PO SCH (08:40)
[2021-09-16] MEDS: SERTRALINE HCL 50 MG TABLET PO SCH (08:40)
[2021-09-16] MEDS: ISOSORBIDE MONO EXTENDED REL 60 MG TABCR PO SCH (08:40)
[2021-09-16] MEDS: TAMSULOSIN HCL 0.4 MG CAP PO SCH (08:41)
[2021-09-16] MEDS: ASCORBIC ACID 500 MG TAB PO SCH (08:41)
[2021-09-16] MEDS: CYANOCOBALAMIN (B-12) 500 MCG TABLET PO SCH (08:41)
[2021-09-16] MEDS: rOPINIRole HCL 1 MG TABLET PO SCH (08:42)
[2021-09-16] MEDS: ASPIRIN 81 MG ECTAB PO SCH (08:42)
[2021-09-16] MEDS: INSULIN GLARGINE SOLOSTAR 100 UNITS/ML 3 ML PEN SC SCH (08:43)
[2021-09-16] MEDS ORDERED: METOPROLOL SUCC 50MG EXT REL TAB PO SCH (09:00)
[2021-09-16] MEDS ORDERED: LOSARTAN POTASSIUM 50 MG TAB PO SCH (09:00)
[2021-09-16 09:03] LABS: BUN Creatinine Ratio 14.6 (10-20); Calcium 8.2 mg/dl (8.5-10.1); Creatinine Clr Calc Pharmacy 65.8 ml/min; Est GFR (African American) 80.8 ml/min; Est GFR (Non-African American) 69.7 ml/min; Magnesium 1.5 mg/dl (1.7-2.4); Phosphorus 2.4 mg/dl (2.5-4.9); Potassium 4.2 mmol/L (3.5-5.1)
[2021-09-16] MEDS: MAGNESIUM SULFATE / D5W 1 GM/100 ML BAG IV SCH ×2 (10:51→12:57)
--- NOTE | 2021-09-16 11:58 | Discharge Summary ---
Date of Service September 16, 2021 Admission HPI Per Admitting Provider Mr. Larkin is a 76-year-old male with a past medical history DM2, CKD, anemia, HTN, HOCM, spinal stenosis, cardiac pacemaker, BPH, anxiety, and depression who presents today from [facility] due to concerns for confusion and hypotension. Per records from [facility], patient seemed more confused today than he is at baseline, he was also moaning and complaining of abdominal pain and with BP 80/50s which prompted transportation to [facility] ED for further evaluation. Per EMS, BP has been normotensive for them and he has actually been hypertensive here after 1L NS. He seems like a fair historian at present, has difficulty elaborating on specifics, but does give some history that is consistent with [place] report. He is complaining of nausea, vomiting, and diarrhea that has been ongoing the past several days. Also notes episode of chest pain this morning that felt like a tightness in his chest that radiated to his neck. He said he thought about telling the nurses about it, but chose not to. He denies any chest pain now, as well as shortness of breath, cough, palpitations, or abdominal pain. He is stating he is very thirsty, wishes to drink more but notes he has been getting sick easiy with food or drink, so has not been keeping up with nutrition well. In ED, is mildly hypertensive 151/68, bradycardic in 50s which seems to be baseline over the past month, otherwise vital signs within normal limits and stable. Labs significant for Hgb 10.7 (baseline), BUN 40, creatinine 1.92, glucose 182, initial HS trop 197.4. UA positive for protein, nitrite, 1+ bacteria. CT A/P showed fluid-filled dilated colon and rectum, mildly progressed from 07/25, consistent with colonic pseudoobstruction (Malverne syndrome). Trace right pleural effusion. Principal Diagnosis Cece syndrome, hypomagnesemia, acute kidney injury Discharge Exam Constitutional WD/WN, vitals as above Eyes + anicteric sclerae Neck trachea midline, no thyromegaly Respiratory normal respiratory effort, lungs clear to auscultation Cardiovascular RRR, no murmur, no edema Chest (Breasts) Chest: normal inspection of chest Gastrointestinal (Abdomen) normal bowel sounds, soft, nontender, no hepatosplenomegaly Musculoskeletal Extremities: extremities normal to inspection; no cyanosis and no clubbing Skin no rashes, warm and dry Neurologic moves all extremities and awake; no focal motor deficits Lymphatic no lymphedema Discharge Data Allergies Allergy/AdvReac Type Severity Reaction Status Date / Time No Known Allergies Allergy ` Verified 09/10/21 11:45 Consultations 09/07/21 17:06 ED Decision to Admit Stat 09/07/21 21:03 Consult Gastroenterology Routine 09/09/21 17:24 Consult General Surgery Routine Procedures Performed Operation Date: 09/10/21 17:00 Actual Procedures p Colonoscopy with Decompression Tube Douglas Palencia, DO Ordered Studies 09/07/21 14:08 CT abd pelvis wo con Stat Hospital Course (1) Malverne syndrome: Initially had endoscopically placed rectal decompression tube placement by Dr Palencia. Decompressed and then tube removed on 09/13 SLowly adavnced diet to low fiber and tolerating so far. Had large BM on 09/14 , 09/16 repeat KUB without obstruction but with dilated bowel throughout. KUB 09/15 similar Improved abd exam and clinical symptoms. Appreciate GI and gen surg assistance. D/w Dr. Bentley--> plan for colostomy if distended colon returns only if in more emergent life-threatening situation ie sepsis,perforated bowel, ischemic bowel etc as per discussion with patient and his POA/Brother continue senna syrup, Miralax daily, and bisacodyl MT every other day Follow clinically after discharge and return to hospital if recurs (2) Acute on chronic kidney failure: BRINANA. Likely prerenal from poor PO intake, vomiting, diarrhea. RESOLVED with IVFs Baseline creatinine ~1.11.2. Presenting creatinine - 1.9. Today 1.0 held ARB but have now restarted (3) Elevated troponin: hsTrop 197.4 on presentation. NO ISCHEMIC SYMPTOMS pre-admission or while here. Likely myocardial demand ischemia in setting of Malverne's, dehydration, BRIANNA, and HCOM. (4) Diabetes 1.5, managed as type 2: Cont lantus but lower dose to 5 units daily and lower home Novolog dose to 2 units ac Glucose well controlled here (5) Hypertension: BPs elevated continue metoprolol xl but increase back to home dose of 200mg daily. Typically on 200mg/day but lowered on admission for hypotension initially Cont imdur. continue losartan -now on amiloride as well (6) Anemia: Mild, stable. serial labs. b12 level 2020 wnl folate wnl. (7) Hypertrophic obstructive cardiomyopathy (HOCM): Avoid dehydration. Avoid excessive afterload reduction. Cont beta nati. (8) BPH with obstruction/lower urinary tract symptoms: Continue Proscar 5mg daily Continue Flomax 0.4 mg BID Had King - now removed and urinating on own discontinued Oxybutynin as this can worsen colon pseudoobstruction (9) Anxiety and depression: Continue sertraline 25 mg daily. (10) Spinal stenosis: (11) Status post placement of cardiac pacemaker: for high-degree AV block based on records intermittent pacing seen on telemetry follows with Dr. Prieto routinely of [facility] paces at 50 HR (12) Electrolyte abnormality: HYpomagnesemia-->despite IV replacement the level remained refractory he is not having diarrhea at this time thus ongoing GI losses not a factor renal losses possible -now improved with starting amiloride and improved po intake, but remains low normal -give 2 gram IV magnesium today prior to discharge Hypokalemia-continue to replace with po KCl 40 meq po bid FOllow BMP, Mag as outpatient in 2-3 days dispo -dc to SNF today Total Time Total Time Spent Total Time Spent (In Minutes): 40 min Discharge Plan Discharge Items Patient Disposition: Transfer Long-Term Fac Reason For Visit: BOWEL OBSTRUCTION Discharge Diagnosis: Colonic pseudoobstruction (Cece's Syndrome), hypomagnesemia, acute kidney injury Condition on Discharge: Fair Activity: Resume your previous activity Non-emergency contact: Primary Care Provider and Surgeon Call non-emergency contact if: you have any medication questions, your symptoms worsen and your pain is not controlled Follow-up/Referrals: Abram Bentley MD, FACS [Physician] - (Return prn worsening bowel symptoms) [facility] [Primary Care Provider] - Diet: Carb Consistent or DM2, Heart Healthy and Low Fiber Addtl Attending Provider Instructions: You had a distended colon due to dysfunction of your colon. This will continue to be an issue and it is important to keep your bowels moving as much as possible to keep it from getting worse. As you discussed with the Surgeon, you would only have a colon surgery with a colostomy bag placed in the event of an emergency in the future. Please continue the bowel regimen as prescribed to keep your bowels moving. Your oxybutynin was stopped in case this was making your colon function worse. Your magnesium levels were consistently low and you were started on a medication called amiliroide to help keep your magnesium levels in the normal range. Please check a CBC, BMP, and magnesium level in 2-3 days. Pending Studies at Discharge: No Stand-Alone Forms: My [facility] Skilled Items Patient informed of condition?: Yes DNR: Yes Discharge Level of Care: Skilled Communicable Disease: No Discharge Prognosis: Improving Lines: None Urinary Catheter: No Medications and DC Order Prescriptions: New sennosides [senna] 8.8 mg/5 mL Syrup 5 ml PO BID 30 Days Qty: 300 RF: 0 amiloride 5 mg Tablet 5 mg PO DAILY Qty: 30 RF: 0 Phospha 250 Neutral 250 mg Tablet 2 tab PO DAILY Qty: 60 RF: 0 bisacodyl 10 mg suppository 10 mg MT Q2D Qty: 12 RF: 0 Continued (DME) OneTouch Ultra Blue Test Strip Strip See Dose Instructions .ROUTE .MEDSUPPLY Qty: 100 RF: 6 ascorbic acid (vitamin C) 250 mg tablet 250 mg PO QAM RF: 0 isosorbide mononitrate 60 mg tablet extended release 24 hr 60 mg PO QAM RF: 0 metoprolol succinate 200 mg capsule,sprinkle,ER 24hr 200 mg PO QAM RF: 0 ropinirole 1 mg tablet 1 mg PO QAM RF: 0 aspirin 81 mg tablet,chewable 81 mg PO QAM RF: 0 allopurinol 300 mg tablet 300 mg PO QAM RF: 0 atorvastatin 40 mg Tablet 40 mg PO HS Qty: 30 RF: 0 cholecalciferol (vitamin D3) 25 mcg (1,000 unit) capsule 1,000 units PO QAM RF: 0 tamsulosin 0.4 mg capsule 0.4 mg PO BID17 RF: 0 losartan 50 mg Tablet 50 mg PO QAM RF: 0 simethicone 125 mg Tablet,Chewable 125 mg PO Q6H PRN (Reason: GAS RELIEF) RF: 0 potassium chloride 20 mEq Tablet Extended Release 40 meq PO BID17 RF: 0 acetaminophen 325 mg Tablet 650 mg PO Q4H PRN (Reason: [place]/fever/pain) Qty: 30 RF: 0 finasteride [Proscar] 5 mg Tablet 5 mg PO QAM Qty: 30 RF: 0 nystatin 100,000 unit/gram Cream 1 applic TOPICAL BID RF: 0 sertraline 25 mg Tablet 25 mg PO QAM RF: 0 Abc Complete Senior 50+ 1 tab PO HS RF: 0 cyanocobalamin (vitamin B-12) [Vitamin B-12] 1,000 mcg Tablet 1,000 mcg PO QAM RF: 0 Changed docusate sodium 100 mg capsule 100 mg PO Q12H Qty: 60 RF: 0 insulin aspart U-100 [Novolog Flexpen U-100 Insulin] 100 unit/mL (3 mL) Insulin Pen 2 unit SC AC Qty: 3 RF: 0 insulin glargine [Lantus Solostar U-100 Insulin] 100 unit/mL (3 mL) insulin pen 5 unit SC QAM Qty: 0 RF: 0 polyethylene glycol 3350 [Miralax] 17 gram powder in packet 17 g PO DAILY Qty: 30 RF: 0 Discontinued oxybutynin chloride 5 mg Tablet 10 mg PO QAM RF: 0 Discharge Orders: Discharge Order (Routine); Ordered 09/16/21 Ordered By: Bre Garvin/Other Patient Handouts: Managing Type 2 Diabetes Admission Data Admit Date/Time: 09/07/21 18:41 Attending Provider: Bre Baca Admit Provider: Tremaine Sales [facility]iders: [facility] ; Tremaine Sales ; Christopher Mc ; Abram Bentley Coding Level of Care Code D/C DAY MANAGEMENT >30 MINS Diagnoses Malverne syndrome K59.81 Acute on chronic kidney failure N17.9; N18.9 Elevated troponin R77.8 Diabetes 1.5, managed as type 2 E13.9 Hypertension I10 Anemia D64.9 Anemia type: unspecified type Hypertrophic obstructive cardiomyopathy (HOCM) I42.1 BPH with obstruction/lower urinary tract symptoms N40.1; N13.8 Anxiety and depression F41.9; F32.9 Spinal stenosis M48.00 Status post placement of cardiac pacemaker Z95.0 Electrolyte abnormality E87.8
[2021-09-16] MEDS ORDERED: POT PHOSPHATE MONOBASIC W/ SOD TAB PO SCH (13:00)
== END 2021-09-16 15:43 | DRG 392 ==
LOC: ED 13:15 → 2N 18:41 → SUATTDRO 18:41 → 2N 21:37

== ENCOUNTER 2023-03-24 20:13 | Inpatient (IN) ==
[2023-03-24 20:53] LABS: Appearance Urine Clear (Clear); Bacteria Urine Automated Negative (Negative); Blood Urine Negative (Negative); Color Urine Dark Yellow; Epithelial Cell Urine Auto 0-5 /lpf (0-5); Glucose Urine UA Negative (Negative); Ketones Urine Trace (Negative); Leukocyte Esterase Urine Trace (Negative); Nitrite Urine Positive (Negative); Protein Urine Trace (Negative); RBC Urine Automated 0-4 /hpf (0-4); Specific Gravity Urine 1.021 (1.000-1.030); Urobilinogen Urine Negative (Negative)
[2023-03-24 20:54] LABS: Bilirubin Urine 2+ (Negative)
[2023-03-24 20:55] LABS: Hematocrit (blood only) 35.3 % (42.0-52.0); Hemoglobin 11.7 g/dl (14.0-18.0); Mean Corpuscular Hemoglobin 31.4 pg (25.0-34.0); Mean Corpuscular Hgb Conc 33.1 g/dL (32.0-36.0); Mean Corpuscular Volume 94.6 fL (80.0-100.0); Mean Platelet Volume 11.5 fL (9.4-12.4); Platelet Count 153 K/uL (130-400); RDW Coefficient of Variation 14.3 % (11.5-14.5); RDW Standard Deviation 49.3 fL (36.4-46.3); Red Blood Count 3.73 M/uL (4.70-6.10); White Blood Count 3.68 K/ul (4.8-10.8)
[2023-03-24 21:09] LABS: Alanine Aminotransferase 9 U/L (7-52); Albumin Globulin Ratio 1.2 (0.9-2); Albumin Level 3.5 gm/dl (3.4-5.0); Alkaline Phosphatase 59 U/L (34-104); Anion Gap 16 (3-11); Aspartate Aminotransferase 27 U/L (13-39); BUN Creatinine Ratio 24.5 (10-20); Bilirubin,Total 1.5 mg/dl (0.2-1.0); Blood Urea Nitrogen 72 mg/dl (6-23); Calcium 9.2 mg/dl (8.6-10.3); Carbon Dioxide 16 mmol/L (21-32); Chloride 107 mmol/L (98-107); Est GFR (African American) 22.4 ml/min; Est GFR (Non-African American) 19.3 ml/min; Glucose 129 mg/dl (70-99(Fasting)); Lipase 13 U/L (11-82); Potassium 4.8 mmol/L (3.5-5.1); Sodium 139 mmol/L (136-145); Total Protein 6.5 gm/dl (6.0-8.3)
[2023-03-24 21:39] LABS: Basophils # (auto) 0.01 K/uL (0.00-0.20); Basophils % (auto) 0.3 %; Echinocytes 1+; Immature Granulocytes # (auto) 0.02 K/uL (0.01-0.20); Immature Granulocytes % (auto) 0.5 %; Lymphocytes # (auto) 0.47 K/uL (1.20-3.40); Lymphocytes % (auto) 12.8 %; Monocytes # (auto) 0.72 K/uL (0.11-0.59); Monocytes % (auto) 19.6 %; Neutrophils # (auto) 2.46 K/uL (1.40-6.50); Neutrophils % (auto) 66.8 %
[2023-03-24] MEDS ORDERED: ACETAMINOPHEN 1,000 MG/100 ML VIAL IV STA (21:54)
[2023-03-24] MEDS ORDERED: SODIUM CHLORIDE 0.9% 1,000 ML IV ONE ×2 (21:54→22:26)
--- NOTE | 2023-03-24 21:54 | Emergency Department Note ---
Impression & Plan Sepsis due to urinary tract infection, Acute diarrhea, Elevated lactic acid level ED Provider Note NAME: ELISABETH DUGAN AGE: 78 SEX: M : 1945 ARRIVES VIA: Ambulance INFORMANT: Patient, ED PROVIDER(S): Bao Fleming MD CHIEF COMPLAINT: Diarrhea MEDICAL DECISION MAKING: Patient presented due to concern for diarrhea. Patient is clinically dehydrated. Sepsis protocols were initiated. Empiric antibiotics and IV fluids were ordered initial blood work shows a white count of 3.6 with a hemoglobin 11.7. Initial creatinine of 2.9. Patient does have associated BRIANNA. Likely associated UTI given the patient's nitrite positive urine. Bio fire is negative. CT abdomen pelvis does not show any acute concerning findings. Diarrheal illness noted no evidence of hydro or nephrolithiasis. Patient's initial lactate of 5.9. The patient was ordered 30 cc/kg bolus. Repeat lactate 7.5. Patient was ordered additional IV fluids. I did speak with the on-call hospitalist service. We did discuss the possibility of low-dose Levophed but this was deferred to the inpatient team. They are comfortable with this plan of care and will monitor symptoms. Patient was admitted to the medicine service. Critical Care: I have personally spent 45 minutes of critical care time in direct management of this patient. This includes bedside care, interpretation of diagnostic studies, and testing, discussion with consultants, patient, and family members, and other require inpatient management activities. This 45 minutes is in excess of all separately billable procedures. Discussion w/ other healthcare providers: Dr. Huber inpatient medicine Prior /Outside records reviewed: I reviewed a discharge summary from September 16, [address] Baca. Known history of type 2 diabetes CKD anemia hypertension spinal stenosis with pacemaker BPH anxiety depression who presented from [facility] that time due to concern for confusion hypertension Differential diagnosis: Viral syndrome, otitis, pharyngitis, pneumonia, influenza, meningitis, urinary tract infection, sepsis, bacteremia, as well as other pathologies. Diagnostics, as interpreted by me: ECG: Sinus tach, rate of 102, borderline QRS right bundle branch block, left axis deviation no obvious ST elevations. Cardiac monitoring: An order was placed for continuous cardiac monitoring. The monitor shows a rate of 85 with paced rhythm. Patient was placed on pulse oximetry Medical decision rules: None Imaging studies: I informally interpreted the patient's CT abdomen pelvis which does show liquid stool within the colon with formal report to follow. HPI: Patient presents from [facility] due to concern for diarrhea. Much of the history is not obtainable due to the patient's dementia status and clinical acuity. Patient when asked denies any significant pain or discomfort. Patient also did have reported fever. No reported cough. Patient denies significant abdominal pain on exam. PAST MEDICAL HISTORY: See Below PAST SURGICAL HISTORY: See Below SOCIAL HISTORY: See Below HOME MEDICATIONS: See Below ALLERGIES: See Below VITALS: See Below PHYSICAL EXAMINATION: GENERAL: Ill in appearance. EYE EXAM: Normal conjunctiva. PERRL, no anisocoria and EOM's grossly intact w/o pain. OROPHARYNX: Dry mucus membranes, grossly normal dentition. NECK: Supple, no nuchal rigidity, no adenopathy, non-tender. No signs of meningismus. FROM of the neck with good chin to chest and neck extension. No stridor. LUNGS: Clear to auscultation. Normal chest wall mechanics. HEART: NSR, no MRG. ABDOMEN: Abdomen soft, non-tender, no masses, no rebound or guarding. BACK: No CVA TTP. SKIN: No rashes and no bruising. UPPER EXTREMITIES: Upper extremities are grossly normal. LOWER EXTREMITIES: Grossly normal, no edema. NEURO EXAM: Opens eyes to voice does not follow commands. Moves all 4 extremities. Past Med/Surg History Medical History Metabolic acidosis Acute hypokalemia Acute hypotension BRIANNA (acute kidney injury) Elevated troponin Diarrhea Hypokalemia BRIANNA (acute kidney injury) DVT prophylaxis Hypotension Bladder outlet obstruction Sinus node dysfunction DVT prophylaxis Fecal impaction BRIANNA (acute kidney injury) CKD (chronic kidney disease) Elevated troponin BPH with obstruction/lower urinary tract symptoms Deep vein thrombosis (DVT) of left lower extremity Bereavement Skin carcinoma Anemia of chronic disease Hypertrophic obstructive cardiomyopathy (HOCM) Low back pain Toe infection Proteinuria Syncope and collapse Subclavian vein thromboembolism, acute Spinal stenosis Mobitz (type) II atrioventricular block Diabetes Hypertension Surgical History History of cataract surgery Status post placement of cardiac pacemaker H/O arthroscopy of knee Family History Mother Ovarian cancer Diabetes Father Diabetes Unknown Coronary heart disease Denies family history of Prostate cancer Myocardial infarction Breast cancer Colorectal cancer Social History Smoking Status: Unknown if ever smoked Second Hand Exposure: No; Do You Dip or Chew Tobacco: No; Hx Substance Use: No Preferred Language: [place] Communication Ability: Impaired Tank Washer Required: No Beliefs That Will Affect Care: None marital status: / Current Living Situation: Jail Current Living Situation Comment: [facility] current occupational status: retired How many Children do You have: 0 Feels Safe at Home: Yes Childhood Exposure to Second-Hand Smoke: No caffeine: Yes Dental Care, Regularly: Yes Physical Activity Frequency: 1-2 Times per Week Seatbelt Use: always Sunscreen Use: No Assistive Devices: Walker Allergies Allergies Allergy/AdvReac Type Severity Reaction Status Date / Time No Known Allergies Allergy ` Verified 03/24/23 20:43 Home Meds Home Medications Medication Instructions Recorded Confirmed allopurinol 300 mg tablet 300 mg PO QAM 10/19/20 03/24/23 aspirin 81 mg chewable tablet 81 mg PO QAM 10/19/20 03/24/23 cholecalciferol (vitamin D3) 25 1,000 units PO QAM 12/16/20 03/24/23 mcg (1,000 unit) capsule tamsulosin 0.4 mg capsule 0.4 mg PO QPM 12/16/20 03/24/23 ascorbic acid (vitamin C) 250 mg 250 mg PO QAM 03/01/21 03/24/23 tablet isosorbide mononitrate 60 mg 60 mg PO QAM 03/01/21 03/24/23 tablet,extended release 24 hr metoprolol succinate 200 mg 200 mg PO QAM 03/01/21 03/24/23 capsule sprinkle, ext. release 24 hr ropinirole 1 mg tablet 1 mg PO QAM 03/01/21 03/24/23 potassium chloride 20 mEq 20 meq PO QAM 07/16/21 03/24/23 tablet,extended release simethicone 125 mg chewable tablet 125 mg PO Q6H PRN GAS RELIEF 07/16/21 03/24/23 cyanocobalamin (vitamin B-12) 1,000 mcg PO QAM 07/25/21 03/24/23 1,000 mcg tablet (Vitamin B-12) Senna Syrup 5 ml PO BID 03/24/23 03/24/23 acetaminophen 325 mg tablet 650 mg PO Q6 PRN Pain 03/24/23 03/24/23 acetaminophen 325 mg tablet 650 mg PO Q6 PRN temp>100 03/24/23 03/24/23 hydralazine 50 mg tablet 50 mg PO TID 03/24/23 03/24/23 insulin aspart U-100 100 unit/mL 2 unit SC WM 03/24/23 03/24/23 (3 mL) subcutaneous pen (Novolog FlexPen U-100 Insulin aspart) menthol 0.44 %-zinc oxide 20.6 % 1 applic topical QS 03/24/23 03/24/23 topical ointment (Calmoseptine) mfzhjpno-mon-kdfuv acid 0.4 1 tab PO DAILY 03/24/23 03/24/23 mg-lycopene 300 mcg-lutein 250 mcg tablet (ABC Complete Senior 50 Plus) Previous Rx's Medication Instructions Recorded blood sugar diagnostic (OneTouch #100 ea 06/29/20 Ultra Blue Test Strip) finasteride 5 mg tablet (Proscar) 5 mg PO QAM #30 tabs 10/09/20 atorvastatin 40 mg tablet 40 mg PO HS #30 tabs 10/29/20 bisacodyl 10 mg rectal suppository 10 mg RI Q2D #12 ea 09/16/21 insulin glargine 100 unit/mL (3 5 unit (0.05 mL) SC QAM #0 mL 09/16/21 mL) subcutaneous pen (Lantus Solostar U-100 Insulin) polyethylene glycol 3350 17 gram 17 g PO DAILY #30 ea 09/16/21 oral powder packet (Miralax) Results & Data (ED) Vital Signs Vital Signs - 24 hr 03/25/23 00:15 03/25/23 00:32 03/25/23 00:45 Pulse Rate 95 H Pulse Rate [Apical] 89 89 Respiratory Rate 30 H 34 H Respiratory Effort / Characteristics Non-Labored Spontaneous Respiratory Depth Normal Respiratory Pattern Regular Blood Pressure [Right Arm] 83/53 L 87/50 L Blood Pressure Mean [Right Arm] 63 62 Pulse Oximetry 99 100 Oxygen Delivery Method Nasal Cannula Nasal Cannula Oxygen Flow Rate 2 2 03/25/23 00:52 Pulse Rate Pulse Rate [Apical] 88 Respiratory Rate 31 H Respiratory Effort / Characteristics Respiratory Depth Respiratory Pattern Blood Pressure [Right Arm] 87/50 L Blood Pressure Mean [Right Arm] 62 Pulse Oximetry 99 Oxygen Delivery Method Nasal Cannula Oxygen Flow Rate 2 Home Medications Current Medication List: was personally reviewed by me Laboratory Data Attestation: I reviewed the patient's lab results. 03/25/23 04:35 03/25/23 20:18 Lab Results 03/24/23 03/24/23 03/24/23 Range/Units 20:19 20:32 21:11 WBC 3.68 L (4.8-10.8) K/ul RBC 3.73 L (4.70-6.10) M/uL Hgb 11.7 L (14.0-18.0) g/dl Hct 35.3 L (42.0-52.0) % MCV 94.6 (80.0-100.0) fL MCH 31.4 (25.0-34.0) pg MCHC 33.1 (32.0-36.0) g/dL RDW Std Deviation 49.3 H (36.4-46.3) fL RDW Coeff of Nona 14.3 (11.5-14.5) % Plt Count 153 (130-400) K/uL MPV 11.5 (9.4-12.4) fL Immature Gran % (Auto) 0.5 % Neut % (Auto) 66.8 % Lymph % (Auto) 12.8 % [place] % (Auto) 19.6 % Eos % (Auto) 0.0 % Baso % (Auto) 0.3 % Neut # (Auto) 2.46 (1.40-6.50) K/uL Lymph # (Auto) 0.47 L (1.20-3.40) K/uL [place] # (Auto) 0.72 H (0.11-0.59) K/uL Eos # (Auto) 0.00 (0.00-0.50) K/uL Baso # (Auto) 0.01 (0.00-0.20) K/uL Immature Gran # (Auto) 0.02 (0.01-0.20) K/uL Echinocytes 1+ Sodium 139 (136-145) mmol/L Potassium 4.8 (3.5-5.1) mmol/L Chloride 107 (98-107) mmol/L Carbon Dioxide 16 L (21-32) mmol/L Anion Gap 16 H (3-11) BUN 72 H (6-23) mg/dl Creatinine 2.94 H (0.6-1.4) mg/dl Est Cr Clr Drug Dosing Not Reportable Est GFR ( Amer) 22.4 ml/min Est GFR (Non-Af Amer) 19.3 ml/min BUN/Creatinine Ratio 24.5 H (10-20) Glucose 129 H (70-99(Fasting)) mg/dl Lactate (0.4-2.0) mmol/L Calcium 9.2 (8.6-10.3) mg/dl Total Bilirubin 1.5 H (0.2-1.0) mg/dl AST 27 (13-39) U/L ALT 9 (7-52) U/L Alkaline Phosphatase 59 (34-104) U/L Total Protein 6.5 (6.0-8.3) gm/dl Albumin 3.5 (3.4-5.0) gm/dl Globulin 3.0 (2.5-4.0) gm/dl Albumin/Globulin Ratio 1.2 (0.9-2) Lipase 13 (11-82) U/L Urine Color Dark Yellow Urine Appearance Clear (Clear) Urine pH 5.0 (4.5-7.5) Ur Specific [place] 1.021 (1.000-1.030) Urine Protein Trace H (Negative) Urine Glucose (UA) Negative (Negative) Urine Ketones Trace H (Negative) Urine Blood Negative (Negative) Urine Nitrite Positive A (Negative) Urine Bilirubin 2+ H (Negative) Urine Urobilinogen Negative (Negative) Ur Leukocyte Esterase Trace H (Negative) Urine WBC (Auto) 1-5 (0-5) /hpf Urine RBC (Auto) 0-4 (0-4) /hpf U Hyaline Cast (Auto) 1-5 (0-5) /lpf U Epithel Cells (Auto) 0-5 (0-5) /lpf Urine Bacteria (Auto) Negative (Negative) Adenovirus (PCR) Not Detected (NotDetected) B. pertussis DNA (PCR) Not Detected (NotDetected) B.parapertussis DNA PCR Not Detected (NotDetected) C. pneumoniae DNA (PCR) Not Detected (NotDetected) Coronavirus OC43 (PCR) Not Detected (NotDetected) Coronavirus HKU1 (PCR) Not Detected (NotDetected) Coronavirus 229E (PCR) Not Detected (NotDetected) SARS-CoV-2 (PCR) Not Detected (NotDetected) Coronavirus NL63 (PCR) Not Detected (NotDetected) Human Metapneumovir PCR Not Detected (NotDetected) Influenza Type A (PCR) Not Detected (NotDetected) Influenza Type B (PCR) Not Detected (NotDetected) M. pneumoniae (PCR) Not Detected (NotDetected) Parainfluenza 1 (PCR) Not Detected (NotDetected) Parainfluenza 2 (PCR) Not Detected (NotDetected) Parainfluenza 3 (PCR) Not Detected (NotDetected) Parainfluenza 4 (PCR) Not Detected (NotDetected) RSV (PCR) Not Detected (NotDetected) Entero/Rhino (PCR) Not Detected (NotDetected) 03/24/23 03/25/23 Range/Units 22:40 00:46 WBC (4.8-10.8) K/ul RBC (4.70-6.10) M/uL Hgb (14.0-18.0) g/dl Hct (42.0-52.0) % MCV (80.0-100.0) fL MCH (25.0-34.0) pg MCHC (32.0-36.0) g/dL RDW Std Deviation (36.4-46.3) fL RDW Coeff of Nona (11.5-14.5) % Plt Count (130-400) K/uL MPV (9.4-12.4) fL Immature Gran % (Auto) % Neut % (Auto) % Lymph % (Auto) % [place] % (Auto) % Eos % (Auto) % Baso % (Auto) % Neut # (Auto) (1.40-6.50) K/uL Lymph # (Auto) (1.20-3.40) K/uL [place] # (Auto) (0.11-0.59) K/uL Eos # (Auto) (0.00-0.50) K/uL Baso # (Auto) (0.00-0.20) K/uL Immature Gran # (Auto) (0.01-0.20) K/uL Echinocytes Sodium (136-145) mmol/L Potassium (3.5-5.1) mmol/L Chloride (98-107) mmol/L Carbon Dioxide (21-32) mmol/L Anion Gap (3-11) BUN (6-23) mg/dl Creatinine (0.6-1.4) mg/dl Est Cr Clr Drug Dosing Est GFR ( Amer) ml/min Est GFR (Non-Af Amer) ml/min BUN/Creatinine Ratio (10-20) Glucose (70-99(Fasting)) mg/dl Lactate 5.9 H* 7.5 H* (0.4-2.0) mmol/L Calcium (8.6-10.3) mg/dl Total Bilirubin (0.2-1.0) mg/dl AST (13-39) U/L ALT (7-52) U/L Alkaline Phosphatase (34-104) U/L Total Protein (6.0-8.3) gm/dl Albumin (3.4-5.0) gm/dl Globulin (2.5-4.0) gm/dl Albumin/Globulin Ratio (0.9-2) Lipase (11-82) U/L Urine Color Urine Appearance (Clear) Urine pH (4.5-7.5) Ur Specific [place] (1.000-1.030) Urine Protein (Negative) Urine Glucose (UA) (Negative) Urine Ketones (Negative) Urine Blood (Negative) Urine Nitrite (Negative) Urine Bilirubin (Negative) Urine Urobilinogen (Negative) Ur Leukocyte Esterase (Negative) Urine WBC (Auto) (0-5) /hpf Urine RBC (Auto) (0-4) /hpf U Hyaline Cast (Auto) (0-5) /lpf U Epithel Cells (Auto) (0-5) /lpf Urine Bacteria (Auto) (Negative) Adenovirus (PCR) (NotDetected) B. pertussis DNA (PCR) (NotDetected) B.parapertussis DNA PCR (NotDetected) C. pneumoniae DNA (PCR) (NotDetected) Coronavirus OC43 (PCR) (NotDetected) Coronavirus HKU1 (PCR) (NotDetected) Coronavirus 229E (PCR) (NotDetected) SARS-CoV-2 (PCR) (NotDetected) Coronavirus NL63 (PCR) (NotDetected) Human Metapneumovir PCR (NotDetected) Influenza Type A (PCR) (NotDetected) Influenza Type B (PCR) (NotDetected) M. pneumoniae (PCR) (NotDetected) Parainfluenza 1 (PCR) (NotDetected) Parainfluenza 2 (PCR) (NotDetected) Parainfluenza 3 (PCR) (NotDetected) Parainfluenza 4 (PCR) (NotDetected) RSV (PCR) (NotDetected) Entero/Rhino (PCR) (NotDetected) Administered Medications Heparin Sodium (Porcine) (Heparin Sod 5,000 Unit/0.5 Ml Vial) 5,000 units SQ Q12 [facility] Stop: 04/24/23 08:59 Last Admin: 03/25/23 21:19 Dose: 5,000 units Documented By: [id number] Admin: 03/25/23 11:11 Dose: 5,000 units Documented By: HILDA Piperacillin Sod/Tazobactam (Sod 4.5 gm/ Dextrose) 100 mls @ 25 mls/hr IV Q12H [facility]; Protocol Stop: 04/04/23 07:59 Last Admin: 03/25/23 21:00 Dose: 25 mls/hr Documented By: [id number] Infusion: 03/25/23 13:11 Dose: Infused Documented By: Admin: 03/25/23 08:58 Dose: 25 mls/hr Documented By: HILDA Acetaminophen (Ofirmev) 1,000 mg in 100 mls @ 400 mls/hr IV Q8H PRN PRN Reason: Pain or Fever Stop: 03/28/23 03:46 Last Infusion: 03/25/23 21:00 Dose: Infused Documented By: [id number] Admin: 03/25/23 20:40 Dose: 400 mls/hr Documented By: [id number] Pantoprazole Sodium 40 mg/ (Syringe) 10 mls @ 5 mls/min IV DAILY@1100 NAA Stop: 04/24/23 10:59 Last Admin: 03/25/23 11:00 Dose: 5 mls/min Documented By: HILDA Sodium Bicarbonate 100 meq/ (Sterile Water) 1,100 mls @ 100 mls/hr IV .Q11H [facility] Stop: 04/24/23 08:59 Last Admin: 03/25/23 20:44 Dose: 100 mls/hr Documented By: [id number] Infusion: 03/25/23 20:28 Dose: Infused Documented By: [id number] Admin: 03/25/23 09:28 Dose: 100 mls/hr Documented By: HILDA Daptomycin 450 mg/ Syringe 9 mls @ 4.5 mls/min IV Q48H [facility]; Protocol Stop: 03/27/23 16:44 Last Admin: 03/25/23 18:02 Dose: 4.5 mls/min Documented By: JOHN PAUL Insulin Aspart (Insulin Aspart Per Unit Charge) 0 units SC Q6 [facility] Stop: 04/24/23 05:59 Last Admin: 03/25/23 18:12 Dose: Not Given Documented By: JOHN PAUL Admin: 03/25/23 13:14 Dose: 2 units Documented By: HILDA Co-signed By: Admin: 03/25/23 06:16 Dose: Not Given Documented By: CANDIDA Co-signed By: JEFFERY Discontinued Medications Bisacodyl (Bisacodyl 10 Mg Supp) 10 mg RI Q48H [facility] Stop: 04/24/23 08:59 Last Admin: 03/25/23 09:26 Dose: Not Given Documented By: HILDA Acetaminophen (Ofirmev) 1,000 mg in 100 mls @ 400 mls/hr IV NOW STA Stop: 03/24/23 22:08 Last Infusion: 03/24/23 22:51 Dose: Infused Documented By: Admin: 03/24/23 22:18 Dose: 400 mls/hr Documented By: TANA Sodium Chloride (Nss) 1,000 mls @ 999 mls/hr IV .Q1H1M ONE Stop: 03/24/23 22:54 Last Infusion: 03/24/23 23:17 Dose: Infused Documented By: Admin: 03/24/23 22:16 Dose: 999 mls/hr Documented By: TANA Piperacillin Sod/Tazobactam Sod (Zosyn) 4.5 gm in 100 mls @ 200 mls/hr IV NOW ONE Stop: 03/24/23 22:24 Last Infusion: 12/22/23 23:21 Dose: Infused Documented By: Admin: 03/24/23 22:51 Dose: 200 mls/hr Documented By: TANA Sodium Chloride (Nss) 1,000 mls @ 999 mls/hr IV .Q1H1M ONE Stop: 03/24/23 23:26 Last Infusion: 03/24/23 23:51 Dose: Infused Documented By: Admin: 03/24/23 22:50 Dose: 999 mls/hr Documented By: TANA Sodium Chloride (Nss) 1,000 mls @ 999 mls/hr IV .Q1H1M ONE Stop: 03/25/23 01:03 Last Infusion: 03/25/23 01:08 Dose: Infused Documented By: Admin: 03/25/23 00:07 Dose: 999 mls/hr Documented By: MED Albumin Human (Albumin 25%) 25 gm in 100 mls @ 50 mls/hr IV Q2H NAA Stop: 03/25/23 05:59 Last Infusion: 03/25/23 07:10 Dose: Infused Documented By: Admin: 03/25/23 05:06 Dose: 50 mls/hr Documented By: Infusion: 03/25/23 05:03 Dose: Infused Documented By: travel accommodation inspector: 03/25/23 03:03 Dose: 50 mls/hr Documented By: MED Sodium Chloride (Nss) 1,000 mls @ 999 mls/hr IV .Q1H1M ONE Stop: 03/25/23 02:47 Last Infusion: 03/25/23 06:56 Dose: Infused Documented By: Admin: 03/25/23 02:15 Dose: 999 mls/hr Documented By: MED Sodium Chloride (Nss) 1,000 mls @ 100 mls/hr IV .Q10H NAA Stop: 03/25/23 23:46 Last Infusion: 03/25/23 09:27 Dose: Infused Documented By: Admin: 03/25/23 04:45 Dose: 100 mls/hr Documented By: MED Lactated Ringer's (Lr) 500 mls @ 999 mls/hr IV .Q31M ONE Stop: 03/25/23 17:05 Last Infusion: 03/25/23 17:55 Dose: Infused Documented By: Admin: 03/25/23 17:01 Dose: 999 mls/hr Documented By: JOHN PAUL Morphine Sulfate (Morphine Sulfate 2 Mg/Ml Carp) 2 mg IV NOW STA Stop: 03/25/23 10:42 Last Admin: 03/25/23 11:11 Dose: 2 mg Documented By: HILDA Imaging Data Radiologist's Impression: Abdomen/Pelvis CT 03/24/23 21:57 Exam(s): CT ABDOMEN + PELVIS Without Contrast EXAM: CT Abdomen and Pelvis Without Intravenous Contrast CLINICAL HISTORY: Reason for exam: ab pain, fever, dementia, UTI. TECHNIQUE: Axial computed tomography images of the abdomen and pelvis without intravenous contrast. CTDI is 25.55 mGy and DLP is 1381.97 mGy-cm. Automated exposure control was utilized for the study. A dose lowering technique was utilized adhering to the principles of ALARA. COMPARISON: No relevant prior studies available. FINDINGS: Lung bases: Unremarkable. No mass. No consolidation. Heart: Cardiomegaly. ABDOMEN: Liver: Unremarkable. Gallbladder and bile ducts: Unremarkable. No calcified stones. No ductal dilation. Pancreas: Unremarkable. No ductal dilation. Spleen: Unremarkable. No splenomegaly. Adrenals: Unremarkable. No mass. Kidneys and ureters: Unremarkable. No hydronephrosis or nephrolithiasis. Stomach and bowel: Liquid stool in the colon, correlate the diarrheal disease. No obstruction. No mucosal thickening. PELVIS: Appendix: No findings to suggest acute appendicitis. Bladder: Unremarkable. No stones. Reproductive: Unremarkable as visualized. ABDOMEN and PELVIS: Intraperitoneal space: Unremarkable. No free air. No significant fluid collection. Bones/joints: Degenerative changes of the spine. No acute fracture. No dislocation. Soft tissues: Unremarkable. Vasculature: Atherosclerotic changes of the aorta. No abdominal aortic aneurysm. Lymph nodes: Unremarkable. No enlarged lymph nodes. Tubes, lines and devices: Pacemaker leads. IMPRESSION: 1. No hydronephrosis or nephrolithiasis. 2. Liquid stool in the colon, correlate the diarrheal disease. Electronically signed by: Richard Mera MD 03/25/23 01:02 AM Discharge Plan Visit Data Chief Complaint: Abdominal Pain Stated Complaint: ABDOMINAL PAIN, DEMENTIA ED Provider: Bao Fleming Discharge Problem: Sepsis due to urinary tract infection, Acute diarrhea, Elevated lactic acid level Patient Disposition: Admitted As Inpatient Discharge Instructions Interventions: ED Discharge Assessment Last Done: 03/25/23 03:45
[2023-03-24] MEDS ORDERED: PIPERACILLIN/TAZOBACTAM 4.5 GM/100 ML BAG IV ONE (21:55)
[2023-03-24 23:23] LABS: Adenovirus PCR Not Detected (NotDetected); Bordetella parapertussis PCR Not Detected (NotDetected); Bordetella pertussis PCR Not Detected (NotDetected); Chlamydia pneumoniae PCR Not Detected (NotDetected); Coronavirus 229E PCR Not Detected (NotDetected); Coronavirus CoV-2 (COVID19)PCR Not Detected (NotDetected); Coronavirus HKU1 PCR Not Detected (NotDetected); Coronavirus NL63 PCR Not Detected (NotDetected); Coronavirus OC43PCR Not Detected (NotDetected); Human Metapneumovirus PCR Not Detected (NotDetected); Influenza A PCR Not Detected (NotDetected); Influenza B PCR Not Detected (NotDetected); Mycoplasma pneumoniae PCR Not Detected (NotDetected); Parainfluenza Virus 1 PCR Not Detected (NotDetected); Parainfluenza Virus 2 PCR Not Detected (NotDetected); Parainfluenza Virus 3 PCR Not Detected (NotDetected); Parainfluenza Virus 4 PCR Not Detected (NotDetected); Respiratory Syncytial VirusPCR Not Detected (NotDetected); Rhinovirus/Enterovirus PCR Not Detected (NotDetected)
[2023-03-25] MEDS ORDERED: SODIUM CHLORIDE 0.9% 1,000 ML IV ONE ×2 (00:03→01:47)
--- NOTE | 2023-03-25 00:57 | History & Physical Report ---
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 difficile and stool PCR testing Status post normal saline 1 L boluses x 4 in the ED Continue NSS at 100 mL/h Received Zosyn 4.5 g IV in the ED, continue IV every 12 hours BioFire testing negative Initial lactate 5.9 Acetaminophen 1 g IV every 8 hours as needed Acute kidney injury superimposed on CKD stage III- Creatinine 2.94 on admission, with base 1.42 IV fluids as noted above, can follow serial BMP and magnesium levels Received 4 L normal saline IV fluid boluses Continue NSS at 100 mL per per hour x 2 additional liters, more if needed Echocardiogram on 07/23/2021 with ejection fraction 60-65% Diabetes mellitus- Holding all insulin Patient will be n.p.o. 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 The patient is referred from [facility] due to a persistently elevated temperature, declining blood pressure, signs of dehydration, and diarrhea. Workup in the emergency department suggestive of sepsis due to UTI, with temperature 38.5, declining SBP into the lower 80s, and increasing heart rate. Significant laboratories: Creatinine 2.94, glucose 129, anion gap 16, lactate 5.9. From the ED the patient received the following: Normal saline 1 L boluses x 4, Zosyn 4.5 g IV, and Tylenol 1 g IV. Allergies Allergy/AdvReac Type Severity Reaction Status Date / Time No Known Allergies Allergy ` Verified 03/24/23 20:43 Home Medications Medication Instructions Recorded Confirmed Type blood sugar diagnostic (OneTouch #100 ea 06/29/20 03/24/23 Rx Ultra Blue Test Strip) finasteride 5 mg tablet (Proscar) 5 mg PO QAM #30 tabs 10/09/20 03/24/23 Rx allopurinol 300 mg tablet 300 mg PO QAM 10/19/20 03/24/23 History aspirin 81 mg chewable tablet 81 mg PO QAM 10/19/20 03/24/23 History atorvastatin 40 mg tablet 40 mg PO HS #30 tabs 10/29/20 03/24/23 Rx cholecalciferol (vitamin D3) 25 1,000 units PO QAM 12/16/20 03/24/23 History mcg (1,000 unit) capsule tamsulosin 0.4 mg capsule 0.4 mg PO QPM 12/16/20 03/24/23 History ascorbic acid (vitamin C) 250 mg 250 mg PO QAM 03/01/21 03/24/23 History tablet isosorbide mononitrate 60 mg 60 mg PO QAM 03/01/21 03/24/23 History tablet,extended release 24 hr metoprolol succinate 200 mg 200 mg PO QAM 03/01/21 03/24/23 History capsule sprinkle, ext. release 24 hr ropinirole 1 mg tablet 1 mg PO QAM 03/01/21 03/24/23 History potassium chloride 20 mEq 20 meq PO QAM 07/16/21 03/24/23 History tablet,extended release simethicone 125 mg chewable tablet 125 mg PO Q6H PRN GAS RELIEF 07/16/21 03/24/23 History cyanocobalamin (vitamin B-12) 1,000 mcg PO QAM 07/25/21 03/24/23 History 1,000 mcg tablet (Vitamin B-12) bisacodyl 10 mg rectal suppository 10 mg MD Q2D #12 ea 09/16/21 03/24/23 Rx insulin glargine 100 unit/mL (3 5 unit (0.05 mL) SC QAM #0 mL 09/16/21 03/24/23 Rx mL) subcutaneous pen (Lantus Solostar U-100 Insulin) polyethylene glycol 3350 17 gram 17 g PO DAILY #30 ea 09/16/21 03/24/23 Rx oral powder packet (Miralax) Senna Syrup 5 ml PO BID 03/24/23 03/24/23 History acetaminophen 325 mg tablet 650 mg PO Q6 PRN Pain 03/24/23 03/24/23 History acetaminophen 325 mg tablet 650 mg PO Q6 PRN temp>100 03/24/23 03/24/23 History hydralazine 50 mg tablet 50 mg PO TID 03/24/23 03/24/23 History insulin aspart U-100 100 unit/mL 2 unit SC WM 03/24/23 03/24/23 History (3 mL) subcutaneous pen (Novolog FlexPen U-100 Insulin aspart) menthol 0.44 %-zinc oxide 20.6 % 1 applic topical QS 03/24/23 03/24/23 History topical ointment (Calmoseptine) [id number] acid 0.4 1 tab PO DAILY 03/24/23 03/24/23 History mg-lycopene 300 mcg-lutein 250 mcg tablet (ABC Complete Senior 50 Plus) Past Med/Surg History Medical History Metabolic acidosis Acute hypokalemia Acute hypotension BRIANNA (acute kidney injury) Elevated troponin Diarrhea Hypokalemia BRIANNA (acute kidney injury) DVT prophylaxis Hypotension Bladder outlet obstruction Sinus node dysfunction DVT prophylaxis Fecal impaction BRIANNA (acute kidney injury) CKD (chronic kidney disease) Elevated troponin BPH with obstruction/lower urinary tract symptoms Deep vein thrombosis (DVT) of left lower extremity Bereavement Skin carcinoma Anemia of chronic disease Hypertrophic obstructive cardiomyopathy (HOCM) Low back pain Toe infection Proteinuria Syncope and collapse Subclavian vein thromboembolism, acute Spinal stenosis Mobitz (type) II atrioventricular block Diabetes Hypertension Surgical History History of cataract surgery Status post placement of cardiac pacemaker H/O arthroscopy of knee Family History Mother Ovarian cancer Diabetes Father Diabetes Unknown Coronary heart disease Denies family history of Prostate cancer Myocardial infarction Breast cancer Colorectal cancer Social History Smoking Status: Unknown if ever smoked Second Hand Exposure: No; Do You Dip or Chew Tobacco: No; Hx Substance Use: No Preferred Language: Chinese Communication Ability: Impaired Marketing Administrator Required: No Beliefs That Will Affect Care: None marital status: / Current Living Situation: Assisted Current Living Situation Comment: [facility] current occupational status: retired How many Children do You have: 0 Feels Safe at Home: Yes Childhood Exposure to Second-Hand Smoke: No caffeine: Yes Dental Care, Regularly: Yes Physical Activity Frequency: 1-2 Times per Week Seatbelt Use: always Sunscreen Use: No Assistive Devices: Walker Review of Systems Review of Systems: Not obtainable due to unresponsive state of patient Physical Exam Physical Exam: The patient is unresponsive, normocephalic and atraumatic, lying in bed and in no acute distress. HEENT--PERRL, EOMI, mucous membranes and oropharynx moderately dry, with patient lying on back and mouth open Neck--supple. No JVD. No bruits. Thyroid normal, trachea midline, no gerry nopathy. Heart--normal S1 and S2. No murmurs, rubs or gallops. Lungs--clear bilaterally, no respiratory distress, no accessory muscle use. Abdomen--normal bowel sounds and soft. Nontender. Nondistended. Extremities--No edema Dermatologic--normal skin turgor, normal color, no abnormal lymph nodes, no rash. Neurologic--cranial nerves II through XII grossly intact. Rheumatologic--limited exam Psychiatric--unresponsive Results & Data Results & Data Vital Signs (Past 12 Hours) Vital Signs Temp Pulse Pulse Resp BP Pulse Ox O2 Del Method 03/25/23 00:52 88 31 H 87/50 L 99 Nasal Cannula 03/25/23 00:32 89 34 H 87/50 L 100 Nasal Cannula 03/25/23 00:15 89 30 H 83/53 L 99 Nasal Cannula 03/24/23 22:52 79 35 H 137/73 95 03/24/23 21:07 95 H 17 105/38 L 94 12/22/23 20:34 96 H 03/24/23 20:23 38.5 C H 99 H 93 Room Air 03/24/23 20:20 97 H 18 98/52 L 93 O2 Flow Rate 03/25/23 00:52 2 03/25/23 00:32 2 03/25/23 00:15 2 03/24/23 22:52 03/24/23 21:07 03/24/23 20:34 03/24/23 20:23 03/24/23 20:20 Laboratory Results Laboratory Results WBC 3.73 K/ul (4.8-10.8) L 03/25/23 04:35 RBC 2.97 M/uL (4.70-6.10) L 03/25/23 04:35 Hgb 9.4 g/dl (14.0-18.0) L 03/25/23 04:35 Hct 28.9 % (42.0-52.0) L 03/25/23 04:35 MCV 97.3 fL (80.0-100.0) 03/25/23 04:35 MCH 31.6 pg (25.0-34.0) 03/25/23 04:35 MCHC 32.5 g/dL (32.0-36.0) 03/25/23 04:35 RDW Std Deviation 50.8 fL (36.4-46.3) H 03/25/23 04:35 RDW Coeff of Nona 14.5 % (11.5-14.5) 03/25/23 04:35 Plt Count 121 K/uL (130-400) L 03/25/23 04:35 MPV 11.2 fL (9.4-12.4) 03/25/23 04:35 Immature Gran % (Auto) 0.5 % 03/25/23 04:35 Neut % (Auto) 67.0 % 03/25/23 04:35 Lymph % (Auto) 12.9 % 03/25/23 04:35 [place] % (Auto) 19.3 % 03/25/23 04:35 Eos % (Auto) 0.0 % 03/25/23 04:35 Baso % (Auto) 0.3 % 03/25/23 04:35 Neut # (Auto) 2.50 K/uL (1.40-6.50) 03/25/23 04:35 Lymph # (Auto) 0.48 K/uL (1.20-3.40) L 03/25/23 04:35 [place] # (Auto) 0.72 K/uL (0.11-0.59) H 03/25/23 04:35 Eos # (Auto) 0.00 K/uL (0.00-0.50) 03/25/23 04:35 Baso # (Auto) 0.01 K/uL (0.00-0.20) 03/25/23 04:35 Immature Gran # (Auto) 0.02 K/uL (0.01-0.20) 03/25/23 04:35 Dohle Bodies 1+ 03/25/23 04:35 Echinocytes 1+ 03/25/23 04:35 Sodium 140 mmol/L (136-145) 03/25/23 04:35 Potassium 5.2 mmol/L (3.5-5.1) H 03/25/23 04:35 Chloride 111 mmol/L (98-107) H 03/25/23 04:35 Carbon Dioxide 12 mmol/L (21-32) L 03/25/23 04:35 Anion Gap 17 (3-11) H 03/25/23 04:35 BUN 74 mg/dl (6-23) H 03/25/23 04:35 Creatinine 3.21 mg/dl (0.6-1.4) H 03/25/23 04:35 Est Cr Clr Drug Dosing Not Reportable 03/25/23 04:35 Est GFR ( Amer) 20.2 ml/min 03/25/23 04:35 Est GFR (Non-Af Amer) 17.4 ml/min 03/25/23 04:35 BUN/Creatinine Ratio 23.1 (10-20) H 03/25/23 04:35 Glucose 156 mg/dl (70-99(Fasting)) H 03/25/23 04:35 Lactate 7.5 mmol/L (0.4-2.0) H* 03/25/23 00:46 Calcium 8.0 mg/dl (8.6-10.3) L 03/25/23 04:35 Phosphorus 4.5 mg/dl (2.5-4.9) 03/25/23 04:35 Total Bilirubin 1.5 mg/dl (0.2-1.0) H 03/24/23 20:19 AST 27 U/L (13-39) 03/24/23 20:19 ALT 9 U/L (7-52) 03/24/23 20:19 Alkaline Phosphatase 59 U/L (34-104) 03/24/23 20:19 Total Protein 6.5 gm/dl (6.0-8.3) 03/24/23 20:19 Albumin 3.2 gm/dl (3.4-5.0) L 03/25/23 04:35 Globulin 3.0 gm/dl (2.5-4.0) 03/24/23 20:19 Albumin/Globulin Ratio 1.2 (0.9-2) 03/24/23 20:19 Lipase 13 U/L (11-82) 03/24/23 20:19 Urine Color Dark Yellow 03/24/23 20:32 Urine Appearance Clear (Clear) 03/24/23 20:32 Urine pH 5.0 (4.5-7.5) 03/24/23 20:32 Ur Specific [place] 1.021 (1.000-1.030) 03/24/23 20:32 Urine Protein Trace (Negative) H 03/24/23 20:32 Urine Glucose (UA) Negative (Negative) 03/24/23 20:32 Urine Ketones Trace (Negative) H 03/24/23 20:32 Urine Blood Negative (Negative) 03/24/23 20:32 Urine Nitrite Positive (Negative) A 03/24/23 20:32 Urine Bilirubin 2+ (Negative) H 03/24/23 20:32 Urine Urobilinogen Negative (Negative) 03/24/23 20:32 Ur Leukocyte Esterase Trace (Negative) H 03/24/23 20:32 Urine WBC (Auto) 1-5 /hpf (0-5) 03/24/23 20:32 Urine RBC (Auto) 0-4 /hpf (0-4) 03/24/23 20:32 U Hyaline Cast (Auto) 1-5 /lpf (0-5) 03/24/23 20:32 U Epithel Cells (Auto) 0-5 /lpf (0-5) 03/24/23 20:32 Urine Bacteria (Auto) Negative (Negative) 03/24/23 20:32 Adenovirus (PCR) Not Detected (NotDetected) 03/24/23 21:11 B. pertussis DNA (PCR) Not Detected (NotDetected) 03/24/23 21:11 B.parapertussis DNA PCR Not Detected (NotDetected) 03/24/23 21:11 C. pneumoniae DNA (PCR) Not Detected (NotDetected) 03/24/23 21:11 Coronavirus OC43 (PCR) Not Detected (NotDetected) 03/24/23 21:11 Coronavirus HKU1 (PCR) Not Detected (NotDetected) 03/24/23 21:11 Coronavirus 229E (PCR) Not Detected (NotDetected) 03/24/23 21:11 SARS-CoV-2 (PCR) Not Detected (NotDetected) 03/24/23 21:11 Coronavirus NL63 (PCR) Not Detected (NotDetected) 03/24/23 21:11 Human Metapneumovir PCR Not Detected (NotDetected) 03/24/23 21:11 Influenza Type A (PCR) Not Detected (NotDetected) 03/24/23 21:11 Influenza Type B (PCR) Not Detected (NotDetected) 03/24/23 21:11 M. pneumoniae (PCR) Not Detected (NotDetected) 03/24/23 21:11 Parainfluenza 1 (PCR) Not Detected (NotDetected) 03/24/23 21:11 Parainfluenza 2 (PCR) Not Detected (NotDetected) 03/24/23 21:11 Parainfluenza 3 (PCR) Not Detected (NotDetected) 03/24/23 21:11 Parainfluenza 4 (PCR) Not Detected (NotDetected) 03/24/23 21:11 RSV (PCR) Not Detected (NotDetected) 03/24/23 21:11 Entero/Rhino (PCR) Not Detected (NotDetected) 03/24/23 21:11 Impressions Abdomen/Pelvis CT 03/24/23 21:57 Exam(s): CT ABDOMEN + PELVIS Without Contrast EXAM: CT Abdomen and Pelvis Without Intravenous Contrast CLINICAL HISTORY: Reason for exam: ab pain, fever, dementia, UTI. TECHNIQUE: Axial computed tomography images of the abdomen and pelvis without intravenous contrast. CTDI is 25.55 mGy and DLP is 1381.97 mGy-cm. Automated exposure control was utilized for the study. A dose lowering technique was utilized adhering to the principles of ALARA. COMPARISON: No relevant prior studies available. FINDINGS: Lung bases: Unremarkable. No mass. No consolidation. Heart: Cardiomegaly. ABDOMEN: Liver: Unremarkable. Gallbladder and bile ducts: Unremarkable. No calcified stones. No ductal dilation. Pancreas: Unremarkable. No ductal dilation. Spleen: Unremarkable. No splenomegaly. Adrenals: Unremarkable. No mass. Kidneys and ureters: Unremarkable. No hydronephrosis or nephrolithiasis. Stomach and bowel: Liquid stool in the colon, correlate the diarrheal disease. No obstruction. No mucosal thickening. PELVIS: Appendix: No findings to suggest acute appendicitis. Bladder: Unremarkable. No stones. Reproductive: Unremarkable as visualized. ABDOMEN and PELVIS: Intraperitoneal space: Unremarkable. No free air. No significant fluid collection. Bones/joints: Degenerative changes of the spine. No acute fracture. No dislocation. Soft tissues: Unremarkable. Vasculature: Atherosclerotic changes of the aorta. No abdominal aortic aneurysm. Lymph nodes: Unremarkable. No enlarged lymph nodes. Tubes, lines and devices: Pacemaker leads. IMPRESSION: 1. No hydronephrosis or nephrolithiasis. 2. Liquid stool in the colon, correlate the diarrheal disease. Electronically signed by: Richard Mera MD 03/25/23 01:02 AM Code Status & VTE Plan Code Status DNR/DNI VTE Prophylaxis Plan VTE Prophylaxis will be ordered: Yes PG Care Time/CCT Total # of Minutes Spent Total Time Spent with Patient: Total time spent is greater than 50% in coordination of care (as documented) at patient's floor/unit and/or counseling patient: Coding Level of Care Code 19272 INT INP/OBS CARE 3/75MIN Diagnoses Hypertrophic cardiomyopathy I42.2 LVH (left ventricular hypertrophy) I51.7 CHB (complete heart block) I44.2 Chronic kidney disease, stage III (moderate) N18.30 Acute kidney injury superimposed on chronic kidney disease N17.9; N18.9 Diabetes 1.5, managed as type 2 E13.9 Hypertrophic obstructive cardiomyopathy (HOCM) I42.1 Memory impairment R41.3 Left ventricular outflow tract obstruction Q24.8 Brain TIA G45.9 Acute diarrhea R19.7 Sepsis due to urinary tract infection A41.9; N39.0 Cece syndrome K59.81
--- NOTE | 2023-03-25 01:03 | CT Scan Report ---
Exam(s): CT ABDOMEN + PELVIS Without Contrast EXAM: CT Abdomen and Pelvis Without Intravenous Contrast CLINICAL HISTORY: Reason for exam: ab pain, fever, dementia, UTI. TECHNIQUE: Axial computed tomography images of the abdomen and pelvis without intravenous contrast. CTDI is 25.55 mGy and DLP is 1381.97 mGy-cm. Automated exposure control was utilized for the study. A dose lowering technique was utilized adhering to the principles of ALARA. COMPARISON: No relevant prior studies available. FINDINGS: Lung bases: Unremarkable. No mass. No consolidation. Heart: Cardiomegaly. ABDOMEN: Liver: Unremarkable. Gallbladder and bile ducts: Unremarkable. No calcified stones. No ductal dilation. Pancreas: Unremarkable. No ductal dilation. Spleen: Unremarkable. No splenomegaly. Adrenals: Unremarkable. No mass. Kidneys and ureters: Unremarkable. No hydronephrosis or nephrolithiasis. Stomach and bowel: Liquid stool in the colon, correlate the diarrheal disease. No obstruction. No mucosal thickening. PELVIS: Appendix: No findings to suggest acute appendicitis. Bladder: Unremarkable. No stones. Reproductive: Unremarkable as visualized. ABDOMEN and PELVIS: Intraperitoneal space: Unremarkable. No free air. No significant fluid collection. Bones/joints: Degenerative changes of the spine. No acute fracture. No dislocation. Soft tissues: Unremarkable. Vasculature: Atherosclerotic changes of the aorta. No abdominal aortic aneurysm. Lymph nodes: Unremarkable. No enlarged lymph nodes. Tubes, lines and devices: Pacemaker leads. IMPRESSION: 1. No hydronephrosis or nephrolithiasis. 2. Liquid stool in the colon, correlate the diarrheal disease. Electronically signed by: Richard Mera MD 03/25/23 01:02 AM
[2023-03-25] MEDS: ALBUMIN 25% 25 GM/100 ML VIAL IV SCH ×2 (03:03→05:06)
[2023-03-25] MEDS ORDERED: ONDANSETRON INJ 2 MG/ML 2 ML VIAL IV PRN (03:47)
[2023-03-25] MEDS ORDERED: GLUCAGON FOR INJ 1 MG VIAL SQ PRN (03:47)
[2023-03-25] MEDS ORDERED: GLUCOSE 10 TAB/TUBE PO PRN (03:47)
[2023-03-25] MEDS ORDERED: DEXTROSE 50% 50 ML SYRINGE IV PRN (03:47)
[2023-03-25] MEDS ORDERED: SODIUM CHLORIDE 0.9% 1,000 ML IV SCH (03:47)
[2023-03-25] MEDS ORDERED: GLUCOSE 40% GEL 15 GM TUBE PO PRN (03:47)
[2023-03-25] MEDS ORDERED: CARBOHYDRATES FOR HYPOGLYCEMIA PO PRN (03:47)
[2023-03-25] MEDS ORDERED: Patient's HEIGHT &/or WEIGHT Needed SCH (05:00)
[2023-03-25 05:06] LABS: Albumin Level 3.2 gm/dl (3.4-5.0); Anion Gap 17 (3-11); BUN Creatinine Ratio 23.1 (10-20); Blood Urea Nitrogen 74 mg/dl (6-23); Carbon Dioxide 12 mmol/L (21-32); Chloride 111 mmol/L (98-107); Est GFR (African American) 20.2 ml/min; Est GFR (Non-African American) 17.4 ml/min; Glucose 156 mg/dl (70-99(Fasting)); Phosphorus 4.5 mg/dl (2.5-4.9); Potassium 5.2 mmol/L (3.5-5.1); Sodium 140 mmol/L (136-145)
[2023-03-25 05:16] LABS: Basophils # (auto) 0.01 K/uL (0.00-0.20); Basophils % (auto) 0.3 %; Dohle Bodies 1+; Echinocytes 1+; Hematocrit (blood only) 28.9 % (42.0-52.0); Hemoglobin 9.4 g/dl (14.0-18.0); Immature Granulocytes # (auto) 0.02 K/uL (0.01-0.20); Immature Granulocytes % (auto) 0.5 %; Lymphocytes # (auto) 0.48 K/uL (1.20-3.40); Lymphocytes % (auto) 12.9 %; Mean Corpuscular Hemoglobin 31.6 pg (25.0-34.0); Mean Corpuscular Hgb Conc 32.5 g/dL (32.0-36.0); Mean Corpuscular Volume 97.3 fL (80.0-100.0); Mean Platelet Volume 11.2 fL (9.4-12.4); Monocytes # (auto) 0.72 K/uL (0.11-0.59); Monocytes % (auto) 19.3 %; Platelet Count 121 K/uL (130-400); RDW Coefficient of Variation 14.5 % (11.5-14.5); RDW Standard Deviation 50.8 fL (36.4-46.3); Red Blood Count 2.97 M/uL (4.70-6.10); White Blood Count 3.73 K/ul (4.8-10.8)
[2023-03-25] MEDS: INSULIN ASPART PER UNIT CHARGE SC SCH ×4 (06:16→18:12)
[2023-03-25 07:16] LABS: Estimated Average Glucose 148 mg/dl; Hemoglobin A1C 6.8 % (4.5-5.6)
[2023-03-25 07:27] LABS: Adenovirus F 40/41 PCR Not Detected (NotDetected); Astrovirus PCR Not Detected (NotDetected); Campylobacter PCR Not Detected (NotDetected); Cryptosporidium PCR Not Detected (NotDetected); Cyclospora cayetanensis PCR Not Detected (NotDetected); Entamoeba histolytica PCR Not Detected (NotDetected); Enteroaggregative E.coli(EAEC) Not Detected (NotDetected); Enteropathogenic E.coli (EPEC) Not Detected (NotDetected); Enterotoxigenic E.coli (ETEC) Not Detected (NotDetected); Giardia lamblia PCR Not Detected (NotDetected); Norovirus GI/GII PCR Not Detected (NotDetected); Plesiomonas shigelloides PCR Not Detected (NotDetected); Rotavirus A PCR Not Detected (NotDetected); Salmonella PCR Not Detected (NotDetected); Sapovirus PCR Not Detected (NotDetected); Shiga-like Toxin E.coli (STEC) Not Detected (NotDetected); Shigella/Enteroinvasive E.coli Not Detected (NotDetected); Vibrio cholerae PCR Not Detected (NotDetected); Vibrio species PCR Not Detected (NotDetected); Yersinia enterocolitica PCR Not Detected (NotDetected)
[2023-03-25 08:55] LABS: Base Excess VBG -11.9 mEq/L; HCO3 VBG 13 mmol/L; Oxygen Saturation VBG 85.1 %; PCO2 VBG 25 mmHg (38-50); PO2 VBG 53 mmHg; pH VBG 7.31 (7.36-7.41)
[2023-03-25] MEDS: PIPERACILLIN/TAZOBACTAM 4.5 GM in DEXTROSE 5% MINI-B 100 ML IV SCH ×2 (08:58→21:00)
[2023-03-25] MEDS ORDERED: bisacodyL 10 MG SUPP PR SCH (09:00)
--- NOTE | 2023-03-25 09:01 | XRay Report ---
XR chest 1V portable CLINICAL HISTORY: tachypnea, septic shock COMPARISON STUDY: Chest radiograph July 25, 2021. FINDINGS: Low lung volumes are unchanged. There is no pneumothorax or pleural effusion. No consolidat ion is identified to suggest pneumonia. Cardiomegaly is unchanged. No evidence for overt pulmonary ed brigitte. There is pulmonary vascular congestion. IMPRESSION: 1. Low lung volumes. No consolidation to suggest pneumonia. 2. Cardiomegaly with pulmonary vascular congestion. ACT 112: Negative or not required by law. Electronically signed by: Yosef Still M.D. 03/25/2023 9:00 AM
[2023-03-25 09:20] LABS: Albumin Globulin Ratio 1.3 (0.9-2); Albumin Level 3.4 gm/dl (3.4-5.0); BUN Creatinine Ratio 24.4 (10-20); Bilirubin,Total 1.4 mg/dl (0.2-1.0); Calcium 8.3 mg/dl (8.6-10.3); Creatinine Clr Calc Pharmacy 19.9 ml/min; Est GFR (Non-African American) 18.1 ml/min; Globulin 2.7 gm/dl (2.5-4.0); Potassium 5.1 mmol/L (3.5-5.1); Total Protein 6.1 gm/dl (6.0-8.3)
[2023-03-25] MEDS: SODIUM BICARBONATE 8.4% 100 MEQ in WATER, STERILE 1,000 ML IV SCH ×2 (09:28→20:44)
--- NOTE | 2023-03-25 09:33 | Hospitalist Progress Note ---
Date of Service March 25, 2023 Assessment & Plan (1) Severe sepsis: Plan: suspected source - intra-abdominal although he has chronic Cece's he has severe abd distension with pain (generalized) along with foul-smelling stool and report of diarrhea at the [facility] CT a/p with liquid stool throughout the colon stool Biofire negative c diff x 2 (I repeated c diff to ensure first one wasn't falsely negative) both negative respiratory Biofire negative cxr without obvious pneumonia u/a mildly dirty but no bacteria or WBCs on microscopy blood cultures thus far negative but continue to trend empiric Rx especially in light of GI symptoms & signs continue zosyn add daptomycin for empiric coverage while awaiting blood cx's gen surg and GI consults appreciated s/p COPIOUS IV fluids and boluses in ER s/p albumin overnight by admitting MD bicarbonate infusion today gave additional LR bolus late in the day serial exams serial labs including lactates (2) Elevated lactic acid level: Plan: severe multifactorial causes - massive dehydration, severe sepsis, intestinal ischemia? - etc changed IV fluids to bicarbonate infusion this am serial BMPs, serial VBGs, serial lactates throughout the day today repeat the same labs in am tomorrow (3) Acute diarrhea: Plan: foul-smelling stool stool biofire negative c diff x 2 both negative respiratory biofire including COVID negative intestinal/colonic ischemia given his severe pain and tenderness on abdominal exam? gen surg consult appreciated GI consult appreciated (4) Acute kidney injury superimposed on chronic kidney disease: Plan: baseline Cr ~1.4 (02/2023) now > 3 likely sepsis associated ATN changed IV fluids to bicarbonate infusion significant metabolic acidosis from his BRIANNA as well as lactic acidosis serial BMPs fung in place no signs of obstruction on CT (5) Hypertrophic cardiomyopathy: Plan: follows with [facility] [place] Cardiology pre-load dependent state NO evidence of any decompensated; he is massively volume depleted hold cardiac meds IV fluids (6) CHB (complete heart block): Plan: s/p pacemaker placement in the past (7) Chronic kidney disease, stage III (moderate): Plan: baseline Cr ~1.4 baseline CrCl about 45 (8) Pseudo-obstruction of colon: Plan: chronic Cece's previously seen by both GI & gen surg for this on prior admissions today he is severely distended and has generalized tenderness ischemic gut? peritonitis? 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: Plan: hold flomax cont fung (14) Acute metabolic encephalopathy: Plan: 2nd to severe sepsis, acidosis, etc supportive care this afternoon he did require soft mitts for his hands due to pulling at medical equipment, etc (15) Thrombocytopenia: Plan: likely due to sepsis serial CBCs if platelets continue to worsen to low levels would have to hold heparin being used for DVT Proph (16) DVT prophylaxis: Plan: heparin 5000 BID Plan spoke twice today with pt's brother, Miguel Rivera reports that his brother has been steadily declining at the detention over the last year Miguel understands that his brother is critically ill (severe sepsis, BRIANNA, acidosis, etc etc) Miguel confirms DNR/DNI status when we discussed his abdominal status (Cece's, ?ischemic gut, etc) Miguel was not sure if Christopher would want aggressive measures (surgery, etc) we left things as follows - continue supportive care for now, see how next 24 hours goes; if Christopher does not respond to current Rx or worsens would need to talk about a palliative approach patient critically ill with multi-organ failure and hypotension multiple bedside visits, multiple conversations with consultants, 2 conversations with his brother Miguel who has POA, shock management/acidosis management, etc total critical care time today - 100 minutes Admission and Anticipated Discharge Date Admission Date: March 25, 2023 Subjective patient was ED inpatient hold much of the am and afternoon early this am it was noted that Mr Larkin was hypotensive with systolics in the 80s and 90s and has worsening creatinine I went to see Mr Larkin early in the am when I entered the room there was a severe malodorous smell in the room when I went to his bedside he was sleepy but able to wake briefly he was severely altered he had just had a liquid stool he was unable to provide any meaningful history or ROS I had multiple correspondences today with his nurse in the ER and on PCU, with gen surg, with GI, and with his brother Miguel Review of Systems Review of Systems: Unobtainable due to cognitive status Physical Exam Physical Exam: gen - looks severely dehydrated, looks ill, altered; at one point he was hyperventilating and borderline crying and moaning mouth - SEVERELY dry MM neck - no JVD heart - RRR, s1 s2, 1/6 MANOLO LSB lungs - tachypneic, but no retractions; CTA b/l; no rales or wheezes abd - severely distended, generalized tenderness, BS+ and very high-pitched, no HSM ext - cool to touch feet, pulses 1+ b/l, no edema neuro - contractures of arms? (very stiff and flexed arms) psych - severely altered; oriented to person only Results & Data Results & Data Vital Signs (Past 12 Hours) Vital Signs Pulse Pulse Resp BP Pulse Ox Pulse Ox O2 Del Method 03/25/23 06:55 77 03/25/23 06:37 76 37 H 81/47 L 99 Nasal Cannula 03/25/23 05:34 83 31 H 100/53 L 100 Nasal Cannula 03/25/23 05:10 79 33 H 87/40 L 98 Nasal Cannula 03/25/23 04:38 77 38 H 107/88 98 Nasal Cannula 03/25/23 04:34 73 03/25/23 04:28 75 33 H 80/49 L 97 Nasal Cannula 03/25/23 04:28 98 03/25/23 03:13 89 34 H 87/55 L 99 Nasal Cannula 03/25/23 02:36 78 37 H 83/51 L 99 Nasal Cannula 03/25/23 00:52 88 31 H 87/50 L 99 Nasal Cannula 03/25/23 00:45 95 H 03/25/23 00:32 89 34 H 87/50 L 100 Nasal Cannula 03/25/23 00:15 89 30 H 83/53 L 99 Nasal Cannula 03/24/23 22:52 79 35 H 137/73 95 O2 Del Method O2 Flow Rate 03/25/23 06:55 03/25/23 06:37 2 03/25/23 05:34 2 03/25/23 05:10 2 03/25/23 04:38 2 03/25/23 04:34 03/25/23 04:28 2 03/25/23 04:28 Nasal Cannula 03/25/23 03:13 2 03/25/23 02:36 2 03/25/23 00:52 2 03/25/23 00:45 03/25/23 00:32 2 03/25/23 00:15 2 03/24/23 22:52 Laboratory Results Laboratory Results - last 24 hr 03/25/23 03/25/23 03/25/23 04:35 05:00 08:47 WBC RBC Hgb Hct MCV MCH MCHC RDW Std Deviation RDW Coeff of Nona Plt Count MPV VBG pH 7.31 L VBG pCO2 25 L VBG pO2 53 VBG HCO3 13 VBG O2 Saturation 85.1 VBG Base Excess -11.9 Sodium 140 Potassium 5.1 Chloride 111 H Carbon Dioxide 13 L Anion Gap 16 H BUN 76 H Creatinine 3.11 H Est Cr Clr Drug Dosing 19.9 Est GFR ( Amer) 21.0 Est GFR (Non-Af Amer) 18.1 BUN/Creatinine Ratio 24.4 H Glucose 156 H POC Glucose Estimat Average Glucose 148 Hemoglobin A1c 6.8 H Lactate 4.5 H* Calcium 8.3 L Phosphorus Magnesium Total Bilirubin 1.4 H AST 30 ALT 9 Alkaline Phosphatase 37 Total Protein 6.1 Albumin 3.4 Globulin 2.7 Albumin/Globulin Ratio 1.3 Random Cortisol > 60.00 Stl C. cayetanensis PCR Not Detected Stool Rotavirus A PCR Not Detected Stl Adenov F 40/41 PCR Not Detected Stool Astrovirus (PCR) Not Detected Stool Campylobacter PCR Not Detected Stl C. diff Tox B Gene Stool Cryptosporidium PCR Not Detected Stl E.coli Shiga Tox PCR Not Detected Stl Enterotoxigenic E PCR Not Detected Stool EPEC (PCR) Not Detected Stool EAEC (PCR) Not Detected Stl E. histolytica PCR Not Detected Stool Giardia Lamblia PCR Not Detected Stool Salmonella PCR Not Detected Stool Sapovirus (PCR) Not Detected Stl P. shigelloides PCR Not Detected Stl Shigella/EIEC PCR Not Detected St Y.enterocolitica PCR Not Detected Stool Vibrio (PCR) Not Detected Stl Vibrio cholerae PCR Not Detected Stl Norovirus GI/GII PCR Not Detected 03/25/23 03/25/23 03/25/23 09:09 12:28 13:02 WBC RBC Hgb Hct MCV MCH MCHC RDW Std Deviation RDW Coeff of Nona Plt Count MPV VBG pH 7.27 L VBG pCO2 25 L VBG pO2 39 VBG HCO3 12 VBG O2 Saturation 71.7 VBG Base Excess -13.6 Sodium Potassium Chloride Carbon Dioxide Anion Gap BUN Creatinine Est Cr Clr Drug Dosing Est GFR ( Amer) Est GFR (Non-Af Amer) BUN/Creatinine Ratio Glucose POC Glucose 190 H Estimat Average Glucose Hemoglobin A1c Lactate 4.5 H* Calcium Phosphorus Magnesium Total Bilirubin AST ALT Alkaline Phosphatase Total Protein Albumin Globulin Albumin/Globulin Ratio Random Cortisol Stl C. cayetanensis PCR Stool Rotavirus A PCR Stl Adenov F 40/41 PCR Stool Astrovirus (PCR) Stool Campylobacter PCR Stl C. diff Tox B Gene Negative Cdiff Gene Stool Cryptosporidium PCR Stl E.coli Shiga Tox PCR Stl Enterotoxigenic E PCR Stool EPEC (PCR) Stool EAEC (PCR) Stl E. histolytica PCR Stool Giardia Lamblia PCR Stool Salmonella PCR Stool Sapovirus (PCR) Stl P. shigelloides PCR Stl Shigella/EIEC PCR St Y.enterocolitica PCR Stool Vibrio (PCR) Stl Vibrio cholerae PCR Stl Norovirus GI/GII PCR 03/25/23 03/25/23 18:07 20:18 WBC RBC Hgb Hct MCV MCH MCHC RDW Std Deviation RDW Coeff of Nona Plt Count MPV VBG pH 7.39 VBG pCO2 25 L VBG pO2 54 VBG HCO3 15 VBG O2 Saturation 87.3 VBG Base Excess -8.1 Sodium 138 Potassium 4.6 Chloride 109 H Carbon Dioxide 14 L Anion Gap 15 H BUN 87 H Creatinine 3.33 H Est Cr Clr Drug Dosing 18.6 Est GFR ( Amer) 19.3 Est GFR (Non-Af Amer) 16.6 BUN/Creatinine Ratio 26.1 H Glucose 100 H POC Glucose 134 H Estimat Average Glucose Hemoglobin A1c Lactate 2.7 H* Calcium 8.1 L Phosphorus Magnesium Total Bilirubin AST ALT Alkaline Phosphatase Total Protein Albumin Globulin Albumin/Globulin Ratio Random Cortisol Stl C. cayetanensis PCR Stool Rotavirus A PCR Stl Adenov F 40/41 PCR Stool Astrovirus (PCR) Stool Campylobacter PCR Stl C. diff Tox B Gene Stool Cryptosporidium PCR Stl E.coli Shiga Tox PCR Stl Enterotoxigenic E PCR Stool EPEC (PCR) Stool EAEC (PCR) Stl E. histolytica PCR Stool Giardia Lamblia PCR Stool Salmonella PCR Stool Sapovirus (PCR) Stl P. shigelloides PCR Stl Shigella/EIEC PCR St Y.enterocolitica PCR Stool Vibrio (PCR) Stl Vibrio cholerae PCR Stl Norovirus GI/GII PCR Diagnostic Findings Chest X-Ray 03/25/23 08:28 XR chest 1V portable CLINICAL HISTORY: tachypnea, septic shock COMPARISON STUDY: Chest radiograph July 25, 2021. FINDINGS: Low lung volumes are unchanged. There is no pneumothorax or pleural effusion. No consolidation is identified to suggest pneumonia. Cardiomegaly is unchanged. No evidence for overt pulmonary edema. There is pulmonary vascular congestion. IMPRESSION: 1. Low lung volumes. No consolidation to suggest pneumonia. 2. Cardiomegaly with pulmonary vascular congestion. ACT 112: Negative or not required by law. Electronically signed by: Yosef Still M.D. 03/25/2023 9:00 AM KUB X-Ray 03/25/23 09:05 KUB CLINICAL HISTORY: Severe abdominal distention. Sepsis. COMPARISON STUDY: [facility] September 15, 2021. CT of the abdomen and pelvis March 24, 2023. FINDINGS: No dilated small bowel loops are identified. Moderate distention of the colon is similar to prior CT of March 24, 2023. This is also similar to multiple additional exams. No radiographic evidence for pneumatosis. No evidence for free air on supine exam. IMPRESSION: No significant change in moderate colonic dilatation, shown on multiple prior studies. This may reflect colonic pseudoobstruction/ileus. ACT 112: Negative or not required by law. Electronically signed by: Yosef Still M.D. 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
--- NOTE | 2023-03-25 10:03 | XRay Report ---
KUB CLINICAL HISTORY: Severe abdominal distention. Sepsis. COMPARISON STUDY: [facility] September 15, 2021. CT of the abdomen and pelvis March 24, 2023. FINDINGS: No dilated small bowel loops are identified. Moderate distention of the colon is similar to prior CT of March 24, 2023. This is also similar to multiple additional exams. No radiographic ev idence for pneumatosis. No evidence for free air on supine exam. IMPRESSION: No significant change in moderate colonic dilatation, shown on multiple prior studies. T his may reflect colonic pseudoobstruction/ileus. ACT 112: Negative or not required by law. Electronically signed by: Yosef Still M.D. 03/25/2023 10:01 AM
--- NOTE | 2023-03-25 10:39 | Surgery Consultation ---
Date of Consultation March 25, 2023 Assessment & Plan (1) Pseudo-obstruction of colon: Assessment: Patient is a 78 years old gentleman with significant PMH- hypertrophic cardiomyopathy, acute kidney injury, left ventricular hypertrophy, recurrent kidney disease stage III, pseudo obstruction of the colon, [place] syndrome, type 2 diabetes, TIA, hypertension, BPH, memory impairment, hyperparathyroidism, and cardiomyopathy. Patient presented to ED with 2-day history fever, diarrhea, and low prepped pressure. Patient said his stomach hurt for last 2 days. T 38.5. Patient had diarrhea last 2 days with no bloody stool. Plan, no indication for urgent surgery now. conservative treatment, resuscitation with IV fluid, NPO, NG tube, consult GI to R/O ischemic bowel. repeat labs 6 hours based pt's co-morbilities, the prognosis is poor . D/W pt attending. will F/U. History of Present Illness Reason for Consultation: bowel infection or ischemia Requesting Physician: Tremaine Sales MD Attending Physician: Tremaine Sales MD History of Present Illness CC: fever, low blood pressure HPI: Christopher Larkin is a 78 year-old male with significant PMH-hypertrophic cardiomyopathy, acute kidney injury, left ventricular hypertrophy, recurrent kidney disease stage III, pseudo obstruction of the colon, Cece syndrome, type 2 diabetes, TIA, hypertension, BPH, memory impairment, hyperparathyroidism, and cardiomyopathy. Patient presented to ED with 2-day history fever, diarrhea, and low prepped pressure. Patient said his stomach hurt for last 2 days. T 38.5. Patient had diarrhea last 2 days with no bloody stool. Patient denies any nausea and vomiting.CT scan - IMPRESSION: 1. No hydronephrosis or nephrolithiasis. 2. Liquid stool in the colon, correlate the diarrheal disease. Allergies Allergy/AdvReac Type Severity Reaction Status Date / Time No Known Allergies Allergy ` Verified 03/24/23 20:43 Home Medications Medication Instructions Recorded Confirmed Type blood sugar diagnostic (OneTouch #100 ea 06/29/20 03/24/23 Rx Ultra Blue Test Strip) finasteride 5 mg tablet (Proscar) 5 mg PO QAM #30 tabs 10/09/20 03/24/23 Rx allopurinol 300 mg tablet 300 mg PO QAM 10/19/20 03/24/23 History aspirin 81 mg chewable tablet 81 mg PO QAM 10/19/20 03/24/23 History atorvastatin 40 mg tablet 40 mg PO HS #30 tabs 10/29/20 03/24/23 Rx cholecalciferol (vitamin D3) 25 1,000 units PO QAM 12/16/20 03/24/23 History mcg (1,000 unit) capsule tamsulosin 0.4 mg capsule 0.4 mg PO QPM 12/16/20 03/24/23 History ascorbic acid (vitamin C) 250 mg 250 mg PO QAM 03/01/21 03/24/23 History tablet isosorbide mononitrate 60 mg 60 mg PO QAM 03/01/21 03/24/23 History tablet,extended release 24 hr metoprolol succinate 200 mg 200 mg PO QAM 03/01/21 03/24/23 History capsule sprinkle, ext. release 24 hr ropinirole 1 mg tablet 1 mg PO QAM 03/01/21 03/24/23 History potassium chloride 20 mEq 20 meq PO QAM 07/16/21 03/24/23 History tablet,extended release simethicone 125 mg chewable tablet 125 mg PO Q6H PRN GAS RELIEF 07/16/21 03/24/23 History cyanocobalamin (vitamin B-12) 1,000 mcg PO QAM 07/25/21 03/24/23 History 1,000 mcg tablet (Vitamin B-12) bisacodyl 10 mg rectal suppository 10 mg WI Q2D #12 ea 09/16/21 03/24/23 Rx insulin glargine 100 unit/mL (3 5 unit (0.05 mL) SC QAM #0 mL 09/16/21 03/24/23 Rx mL) subcutaneous pen (Lantus Solostar U-100 Insulin) polyethylene glycol 3350 17 gram 17 g PO DAILY #30 ea 09/16/21 03/24/23 Rx oral powder packet (Miralax) Senna Syrup 5 ml PO BID 03/24/23 03/24/23 History acetaminophen 325 mg tablet 650 mg PO Q6 PRN Pain 03/24/23 03/24/23 History acetaminophen 325 mg tablet 650 mg PO Q6 PRN temp>100 03/24/23 03/24/23 History hydralazine 50 mg tablet 50 mg PO TID 03/24/23 03/24/23 History insulin aspart U-100 100 unit/mL 2 unit SC WM 03/24/23 03/24/23 History (3 mL) subcutaneous pen (Novolog FlexPen U-100 Insulin aspart) menthol 0.44 %-zinc oxide 20.6 % 1 applic topical QS 03/24/23 03/24/23 History topical ointment (Calmoseptine) [id number] acid 0.4 1 tab PO DAILY 03/24/23 03/24/23 History mg-lycopene 300 mcg-lutein 250 mcg tablet (ABC Complete Senior 50 Plus) Patient History Medical History Metabolic acidosis Acute hypokalemia Acute hypotension BRIANNA (acute kidney injury) Elevated troponin Diarrhea Hypokalemia BRIANNA (acute kidney injury) DVT prophylaxis Hypotension Bladder outlet obstruction Sinus node dysfunction DVT prophylaxis Fecal impaction BRIANNA (acute kidney injury) CKD (chronic kidney disease) Elevated troponin BPH with obstruction/lower urinary tract symptoms Deep vein thrombosis (DVT) of left lower extremity Bereavement Skin carcinoma Anemia of chronic disease Hypertrophic obstructive cardiomyopathy (HOCM) Low back pain Toe infection Proteinuria Syncope and collapse Subclavian vein thromboembolism, acute Spinal stenosis Mobitz (type) II atrioventricular block Diabetes Hypertension Surgical History History of cataract surgery Status post placement of cardiac pacemaker H/O arthroscopy of knee Family History Mother Ovarian cancer Diabetes Father Diabetes Unknown Coronary heart disease Denies family history of Prostate cancer Myocardial infarction Breast cancer Colorectal cancer Social History Smoking Status: Unknown if ever smoked Second Hand Exposure: No; Do You Dip or Chew Tobacco: No; Hx Substance Use: No Preferred Language: Romanian Communication Ability: Impaired Photo Tube 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 Required: No Beliefs That Will Affect Care: None marital status: / Current Living Situation: Prison Current Living Situation Comment: [facility] current occupational status: retired How many Children do You have: 0 Feels Safe at Home: Yes Childhood Exposure to Second-Hand Smoke: No caffeine: Yes Dental Care, Regularly: Yes Physical Activity Frequency: 1-2 Times per Week Seatbelt Use: always Sunscreen Use: No Assistive Devices: Walker Review of Systems Constitutional: Memory impairment Eyes: as per Subjective / HPI Respiratory: as per Subjective / HPI Cardiovascular: Additional Comments: HTN, hypertrophic obstructive cardiomyopathy, left ventricular outflow tract obstruction, Gastrointestinal: Pseudo colon obstruction, Ogilie syndrome Genitourinary: + problem reported (BPH, chronic kidney disease stage III, acute renal injury) Neurologic: Memory impairment Endocrine: hyperparathyroidism Hematologic / Lymphatic: anemia Physical Exam Constitutional: awake, alert, dehydration Eyes: PERRL, conjunctivae normal, anicteric sclerae Respiratory: normal respiratory effort, lungs clear to auscultation Cardiovascular: Rate/Rhythm: regular rate Gastrointestinal (Abdomen): mild distend, no significant tenderness, no rebound pain, BS + Neurologic: awake, alert Results & Data Vital Signs (Past 12 Hours) Vital Signs Pulse Pulse Resp BP Pulse Ox Pulse Ox O2 Del Method 03/25/23 06:55 77 03/25/23 06:37 76 37 H 81/47 L 99 Nasal Cannula 03/25/23 05:34 83 31 H 100/53 L 100 Nasal Cannula 03/25/23 05:10 79 33 H 87/40 L 98 Nasal Cannula 03/25/23 04:38 77 38 H 107/88 98 Nasal Cannula 03/25/23 04:34 73 03/25/23 04:28 75 33 H 80/49 L 97 Nasal Cannula 03/25/23 04:28 98 03/25/23 03:13 89 34 H 87/55 L 99 Nasal Cannula 03/25/23 02:36 78 37 H 83/51 L 99 Nasal Cannula 03/25/23 00:52 88 31 H 87/50 L 99 Nasal Cannula 03/25/23 00:45 95 H 03/25/23 00:32 89 34 H 87/50 L 100 Nasal Cannula 03/25/23 00:15 89 30 H 83/53 L 99 Nasal Cannula 03/24/23 22:52 79 35 H 137/73 95 O2 Del Method O2 Flow Rate 03/25/23 06:55 03/25/23 06:37 2 03/25/23 05:34 2 03/25/23 05:10 2 03/25/23 04:38 2 03/25/23 04:34 03/25/23 04:28 2 03/25/23 04:28 Nasal Cannula 03/25/23 03:13 2 03/25/23 02:36 2 03/25/23 00:52 2 03/25/23 00:45 03/25/23 00:32 2 03/25/23 00:15 2 03/24/23 22:52 Laboratory Results Lab Results 03/24/23 03/24/23 03/24/23 Range/Units 20:19 20:32 21:11 WBC 3.68 L (4.8-10.8) K/ul RBC 3.73 L (4.70-6.10) M/uL Hgb 11.7 L (14.0-18.0) g/dl Hct 35.3 L (42.0-52.0) % MCV 94.6 (80.0-100.0) fL MCH 31.4 (25.0-34.0) pg MCHC 33.1 (32.0-36.0) g/dL RDW Std Deviation 49.3 H (36.4-46.3) fL RDW Coeff of Nona 14.3 (11.5-14.5) % Plt Count 153 (130-400) K/uL MPV 11.5 (9.4-12.4) fL Immature Gran % (Auto) 0.5 % Neut % (Auto) 66.8 % Lymph % (Auto) 12.8 % [place] % (Auto) 19.6 % Eos % (Auto) 0.0 % Baso % (Auto) 0.3 % Neut # (Auto) 2.46 (1.40-6.50) K/uL Lymph # (Auto) 0.47 L (1.20-3.40) K/uL [place] # (Auto) 0.72 H (0.11-0.59) K/uL Eos # (Auto) 0.00 (0.00-0.50) K/uL Baso # (Auto) 0.01 (0.00-0.20) K/uL Immature Gran # (Auto) 0.02 (0.01-0.20) K/uL Dohle Bodies Echinocytes 1+ VBG pH (7.36-7.41) VBG pCO2 (38-50) mmHg VBG pO2 mmHg VBG HCO3 mmol/L VBG O2 Saturation % VBG Base Excess mEq/L Sodium 139 (136-145) mmol/L Potassium 4.8 (3.5-5.1) mmol/L Chloride 107 (98-107) mmol/L Carbon Dioxide 16 L (21-32) mmol/L Anion Gap 16 H (3-11) BUN 72 H (6-23) mg/dl Creatinine 2.94 H (0.6-1.4) mg/dl Est Cr Clr Drug Dosing Not Reportable Est GFR ( Amer) 22.4 ml/min Est GFR (Non-Af Amer) 19.3 ml/min BUN/Creatinine Ratio 24.5 H (10-20) Glucose 129 H (70-99(Fasting)) mg/dl POC Glucose (70-99) mg/dl Estimat Average Glucose mg/dl Hemoglobin A1c (4.5-5.6) % Lactate (0.4-2.0) mmol/L Calcium 9.2 (8.6-10.3) mg/dl Phosphorus (2.5-4.9) mg/dl Total Bilirubin 1.5 H (0.2-1.0) mg/dl AST 27 (13-39) U/L ALT 9 (7-52) U/L Alkaline Phosphatase 59 (34-104) U/L Total Protein 6.5 (6.0-8.3) gm/dl Albumin 3.5 (3.4-5.0) gm/dl Globulin 3.0 (2.5-4.0) gm/dl Albumin/Globulin Ratio 1.2 (0.9-2) Lipase 13 (11-82) U/L Random Cortisol mcg/dl Urine Color Dark Yellow Urine Appearance Clear (Clear) Urine pH 5.0 (4.5-7.5) Ur Specific [place] 1.021 (1.000-1.030) Urine Protein Trace H (Negative) Urine Glucose (UA) Negative (Negative) Urine Ketones Trace H (Negative) Urine Blood Negative (Negative) Urine Nitrite Positive A (Negative) Urine Bilirubin 2+ H (Negative) Urine Urobilinogen Negative (Negative) Ur Leukocyte Esterase Trace H (Negative) Urine WBC (Auto) 1-5 (0-5) /hpf Urine RBC (Auto) 0-4 (0-4) /hpf U Hyaline Cast (Auto) 1-5 (0-5) /lpf U Epithel Cells (Auto) 0-5 (0-5) /lpf Urine Bacteria (Auto) Negative (Negative) Nasal Screen MRSA (PCR) (Negative) Stl C. cayetanensis PCR (NotDetected) Stool Rotavirus A PCR (NotDetected) Stl Adenov F 40/41 PCR (NotDetected) Stool Astrovirus (PCR) (NotDetected) Stool Campylobacter PCR (NotDetected) Stl C. diff Tox B Gene (Neg) Stool Cryptosporidium PCR (NotDetected) Stl E.coli Shiga Tox PCR (NotDetected) Stl Enterotoxigenic E PCR (NotDetected) Stool EPEC (PCR) (NotDetected) Stool EAEC (PCR) (NotDetected) Stl E. histolytica PCR (NotDetected) Stool Giardia Lamblia PCR (NotDetected) Stool Salmonella PCR (NotDetected) Stool Sapovirus (PCR) (NotDetected) Stl P. shigelloides PCR (NotDetected) Stl Shigella/EIEC PCR (NotDetected) St Y.enterocolitica PCR (NotDetected) Stool Vibrio (PCR) (NotDetected) Stl Vibrio cholerae PCR (NotDetected) Stl Norovirus GI/GII PCR (NotDetected) Adenovirus (PCR) Not Detected (NotDetected) B. pertussis DNA (PCR) Not Detected (NotDetected) B.parapertussis DNA PCR Not Detected (NotDetected) C. pneumoniae DNA (PCR) Not Detected (NotDetected) Coronavirus OC43 (PCR) Not Detected (NotDetected) Coronavirus HKU1 (PCR) Not Detected (NotDetected) Coronavirus 229E (PCR) Not Detected (NotDetected) SARS-CoV-2 (PCR) Not Detected (NotDetected) Coronavirus NL63 (PCR) Not Detected (NotDetected) Human Metapneumovir PCR Not Detected (NotDetected) Influenza Type A (PCR) Not Detected (NotDetected) Influenza Type B (PCR) Not Detected (NotDetected) M. pneumoniae (PCR) Not Detected (NotDetected) Parainfluenza 1 (PCR) Not Detected (NotDetected) Parainfluenza 2 (PCR) Not Detected (NotDetected) Parainfluenza 3 (PCR) Not Detected (NotDetected) Parainfluenza 4 (PCR) Not Detected (NotDetected) RSV (PCR) Not Detected (NotDetected) Entero/Rhino (PCR) Not Detected (NotDetected) 03/24/23 03/25/23 03/25/23 Range/Units 22:40 00:46 04:35 WBC 3.73 L (4.8-10.8) K/ul RBC 2.97 L (4.70-6.10) M/uL Hgb 9.4 L (14.0-18.0) g/dl Hct 28.9 L (42.0-52.0) % MCV 97.3 (80.0-100.0) fL MCH 31.6 (25.0-34.0) pg MCHC 32.5 (32.0-36.0) g/dL RDW Std Deviation 50.8 H (36.4-46.3) fL RDW Coeff of Nona 14.5 (11.5-14.5) % Plt Count 121 L (130-400) K/uL MPV 11.2 (9.4-12.4) fL Immature Gran % (Auto) 0.5 % Neut % (Auto) 67.0 % Lymph % (Auto) 12.9 % [place] % (Auto) 19.3 % Eos % (Auto) 0.0 % Baso % (Auto) 0.3 % Neut # (Auto) 2.50 (1.40-6.50) K/uL Lymph # (Auto) 0.48 L (1.20-3.40) K/uL [place] # (Auto) 0.72 H (0.11-0.59) K/uL Eos # (Auto) 0.00 (0.00-0.50) K/uL Baso # (Auto) 0.01 (0.00-0.20) K/uL Immature Gran # (Auto) 0.02 (0.01-0.20) K/uL Dohle Bodies 1+ Echinocytes 1+ VBG pH (7.36-7.41) VBG pCO2 (38-50) mmHg VBG pO2 mmHg VBG HCO3 mmol/L VBG O2 Saturation % VBG Base Excess mEq/L Sodium 140 (136-145) mmol/L Potassium 5.2 H (3.5-5.1) mmol/L Chloride 111 H (98-107) mmol/L Carbon Dioxide 12 L (21-32) mmol/L Anion Gap 17 H (3-11) BUN 74 H (6-23) mg/dl Creatinine 3.21 H (0.6-1.4) mg/dl Est Cr Clr Drug Dosing Not Reportable Est GFR ( Amer) 20.2 ml/min Est GFR (Non-Af Amer) 17.4 ml/min BUN/Creatinine Ratio 23.1 H (10-20) Glucose 156 H (70-99(Fasting)) mg/dl POC Glucose (70-99) mg/dl Estimat Average Glucose 148 mg/dl Hemoglobin A1c 6.8 H (4.5-5.6) % Lactate 5.9 H* 7.5 H* (0.4-2.0) mmol/L Calcium 8.0 L (8.6-10.3) mg/dl Phosphorus 4.5 (2.5-4.9) mg/dl Total Bilirubin (0.2-1.0) mg/dl AST (13-39) U/L ALT (7-52) U/L Alkaline Phosphatase (34-104) U/L Total Protein (6.0-8.3) gm/dl Albumin 3.2 L (3.4-5.0) gm/dl Globulin (2.5-4.0) gm/dl Albumin/Globulin Ratio (0.9-2) Lipase (11-82) U/L Random Cortisol mcg/dl Urine Color Urine Appearance (Clear) Urine pH (4.5-7.5) Ur Specific [place] (1.000-1.030) Urine Protein (Negative) Urine Glucose (UA) (Negative) Urine Ketones (Negative) Urine Blood (Negative) Urine Nitrite (Negative) Urine Bilirubin (Negative) Urine Urobilinogen (Negative) Ur Leukocyte Esterase (Negative) Urine WBC (Auto) (0-5) /hpf Urine RBC (Auto) (0-4) /hpf U Hyaline Cast (Auto) (0-5) /lpf U Epithel Cells (Auto) (0-5) /lpf Urine Bacteria (Auto) (Negative) Nasal Screen MRSA (PCR) Negative (Negative) Stl C. cayetanensis PCR (NotDetected) Stool Rotavirus A PCR (NotDetected) Stl Adenov F 40/41 PCR (NotDetected) Stool Astrovirus (PCR) (NotDetected) Stool Campylobacter PCR (NotDetected) Stl C. diff Tox B Gene (Neg) Stool Cryptosporidium PCR (NotDetected) Stl E.coli Shiga Tox PCR (NotDetected) Stl Enterotoxigenic E PCR (NotDetected) Stool EPEC (PCR) (NotDetected) Stool EAEC (PCR) (NotDetected) Stl E. histolytica PCR (NotDetected) Stool Giardia Lamblia PCR (NotDetected) Stool Salmonella PCR (NotDetected) Stool Sapovirus (PCR) (NotDetected) Stl P. shigelloides PCR (NotDetected) Stl Shigella/EIEC PCR (NotDetected) St Y.enterocolitica PCR (NotDetected) Stool Vibrio (PCR) (NotDetected) Stl Vibrio cholerae PCR (NotDetected) Stl Norovirus GI/GII PCR (NotDetected) Adenovirus (PCR) (NotDetected) B. pertussis DNA (PCR) (NotDetected) B.parapertussis DNA PCR (NotDetected) C. pneumoniae DNA (PCR) (NotDetected) Coronavirus OC43 (PCR) (NotDetected) Coronavirus HKU1 (PCR) (NotDetected) Coronavirus 229E (PCR) (NotDetected) SARS-CoV-2 (PCR) (NotDetected) Coronavirus NL63 (PCR) (NotDetected) Human Metapneumovir PCR (NotDetected) Influenza Type A (PCR) (NotDetected) Influenza Type B (PCR) (NotDetected) M. pneumoniae (PCR) (NotDetected) Parainfluenza 1 (PCR) (NotDetected) Parainfluenza 2 (PCR) (NotDetected) Parainfluenza 3 (PCR) (NotDetected) Parainfluenza 4 (PCR) (NotDetected) RSV (PCR) (NotDetected) Entero/Rhino (PCR) (NotDetected) 03/25/23 03/25/23 03/25/23 Range/Units 05:00 05:58 08:47 WBC (4.8-10.8) K/ul RBC (4.70-6.10) M/uL Hgb (14.0-18.0) g/dl Hct (42.0-52.0) % MCV (80.0-100.0) fL MCH (25.0-34.0) pg MCHC (32.0-36.0) g/dL RDW Std Deviation (36.4-46.3) fL RDW Coeff of Nona (11.5-14.5) % Plt Count (130-400) K/uL MPV (9.4-12.4) fL Immature Gran % (Auto) % Neut % (Auto) % Lymph % (Auto) % [place] % (Auto) % Eos % (Auto) % Baso % (Auto) % Neut # (Auto) (1.40-6.50) K/uL Lymph # (Auto) (1.20-3.40) K/uL [place] # (Auto) (0.11-0.59) K/uL Eos # (Auto) (0.00-0.50) K/uL Baso # (Auto) (0.00-0.20) K/uL Immature Gran # (Auto) (0.01-0.20) K/uL Dohle Bodies Echinocytes VBG pH 7.31 L (7.36-7.41) VBG pCO2 25 L (38-50) mmHg VBG pO2 53 mmHg VBG HCO3 13 mmol/L VBG O2 Saturation 85.1 % VBG Base Excess -11.9 mEq/L Sodium 140 (136-145) mmol/L Potassium 5.1 (3.5-5.1) mmol/L Chloride 111 H (98-107) mmol/L Carbon Dioxide 13 L (21-32) mmol/L Anion Gap 16 H (3-11) BUN 76 H (6-23) mg/dl Creatinine 3.11 H (0.6-1.4) mg/dl Est Cr Clr Drug Dosing 19.9 Est GFR ( Amer) 21.0 ml/min Est GFR (Non-Af Amer) 18.1 ml/min BUN/Creatinine Ratio 24.4 H (10-20) Glucose 156 H (70-99(Fasting)) mg/dl POC Glucose 148 H (70-99) mg/dl Estimat Average Glucose mg/dl Hemoglobin A1c (4.5-5.6) % Lactate 4.5 H* (0.4-2.0) mmol/L Calcium 8.3 L (8.6-10.3) mg/dl Phosphorus (2.5-4.9) mg/dl Total Bilirubin 1.4 H (0.2-1.0) mg/dl AST 30 (13-39) U/L ALT 9 (7-52) U/L Alkaline Phosphatase 37 (34-104) U/L Total Protein 6.1 (6.0-8.3) gm/dl Albumin 3.4 (3.4-5.0) gm/dl Globulin 2.7 (2.5-4.0) gm/dl Albumin/Globulin Ratio 1.3 (0.9-2) Lipase (11-82) U/L Random Cortisol > 60.00 mcg/dl Urine Color Urine Appearance (Clear) Urine pH (4.5-7.5) Ur Specific [place] (1.000-1.030) Urine Protein (Negative) Urine Glucose (UA) (Negative) Urine Ketones (Negative) Urine Blood (Negative) Urine Nitrite (Negative) Urine Bilirubin (Negative) Urine Urobilinogen (Negative) Ur Leukocyte Esterase (Negative) Urine WBC (Auto) (0-5) /hpf Urine RBC (Auto) (0-4) /hpf U Hyaline Cast (Auto) (0-5) /lpf U Epithel Cells (Auto) (0-5) /lpf Urine Bacteria (Auto) (Negative) Nasal Screen MRSA (PCR) (Negative) Stl C. cayetanensis PCR Not Detected (NotDetected) Stool Rotavirus A PCR Not Detected (NotDetected) Stl Adenov F 40/41 PCR Not Detected (NotDetected) Stool Astrovirus (PCR) Not Detected (NotDetected) Stool Campylobacter PCR Not Detected (NotDetected) Stl C. diff Tox B Gene Negative Cdiff Gene (Neg) Stool Cryptosporidium PCR Not Detected (NotDetected) Stl E.coli Shiga Tox PCR Not Detected (NotDetected) Stl Enterotoxigenic E PCR Not Detected (NotDetected) Stool EPEC (PCR) Not Detected (NotDetected) Stool EAEC (PCR) Not Detected (NotDetected) Stl E. histolytica PCR Not Detected (NotDetected) Stool Giardia Lamblia PCR Not Detected (NotDetected) Stool Salmonella PCR Not Detected (NotDetected) Stool Sapovirus (PCR) Not Detected (NotDetected) Stl P. shigelloides PCR Not Detected (NotDetected) Stl Shigella/EIEC PCR Not Detected (NotDetected) St Y.enterocolitica PCR Not Detected (NotDetected) Stool Vibrio (PCR) Not Detected (NotDetected) Stl Vibrio cholerae PCR Not Detected (NotDetected) Stl Norovirus GI/GII PCR Not Detected (NotDetected) Adenovirus (PCR) (NotDetected) B. pertussis DNA (PCR) (NotDetected) B.parapertussis DNA PCR (NotDetected) C. pneumoniae DNA (PCR) (NotDetected) Coronavirus OC43 (PCR) (NotDetected) Coronavirus HKU1 (PCR) (NotDetected) Coronavirus 229E (PCR) (NotDetected) SARS-CoV-2 (PCR) (NotDetected) Coronavirus NL63 (PCR) (NotDetected) Human Metapneumovir PCR (NotDetected) Influenza Type A (PCR) (NotDetected) Influenza Type B (PCR) (NotDetected) M. pneumoniae (PCR) (NotDetected) Parainfluenza 1 (PCR) (NotDetected) Parainfluenza 2 (PCR) (NotDetected) Parainfluenza 3 (PCR) (NotDetected) Parainfluenza 4 (PCR) (NotDetected) RSV (PCR) (NotDetected) Entero/Rhino (PCR) (NotDetected) 03/25/23 Range/Units 09:09 WBC (4.8-10.8) K/ul RBC (4.70-6.10) M/uL Hgb (14.0-18.0) g/dl Hct (42.0-52.0) % MCV (80.0-100.0) fL MCH (25.0-34.0) pg MCHC (32.0-36.0) g/dL RDW Std Deviation (36.4-46.3) fL RDW Coeff of Nona (11.5-14.5) % Plt Count (130-400) K/uL MPV (9.4-12.4) fL Immature Gran % (Auto) % Neut % (Auto) % Lymph % (Auto) % [place] % (Auto) % Eos % (Auto) % Baso % (Auto) % Neut # (Auto) (1.40-6.50) K/uL Lymph # (Auto) (1.20-3.40) K/uL [place] # (Auto) (0.11-0.59) K/uL Eos # (Auto) (0.00-0.50) K/uL Baso # (Auto) (0.00-0.20) K/uL Immature Gran # (Auto) (0.01-0.20) K/uL Dohle Bodies Echinocytes VBG pH (7.36-7.41) VBG pCO2 (38-50) mmHg VBG pO2 mmHg VBG HCO3 mmol/L VBG O2 Saturation % VBG Base Excess mEq/L Sodium (136-145) mmol/L Potassium (3.5-5.1) mmol/L Chloride (98-107) mmol/L Carbon Dioxide (21-32) mmol/L Anion Gap (3-11) BUN (6-23) mg/dl Creatinine (0.6-1.4) mg/dl Est Cr Clr Drug Dosing Est GFR ( Amer) ml/min Est GFR (Non-Af Amer) ml/min BUN/Creatinine Ratio (10-20) Glucose (70-99(Fasting)) mg/dl POC Glucose (70-99) mg/dl Estimat Average Glucose mg/dl Hemoglobin A1c (4.5-5.6) % Lactate (0.4-2.0) mmol/L Calcium (8.6-10.3) mg/dl Phosphorus (2.5-4.9) mg/dl Total Bilirubin (0.2-1.0) mg/dl AST (13-39) U/L ALT (7-52) U/L Alkaline Phosphatase (34-104) U/L Total Protein (6.0-8.3) gm/dl Albumin (3.4-5.0) gm/dl Globulin (2.5-4.0) gm/dl Albumin/Globulin Ratio (0.9-2) Lipase (11-82) U/L Random Cortisol mcg/dl Urine Color Urine Appearance (Clear) Urine pH (4.5-7.5) Ur Specific [place] (1.000-1.030) Urine Protein (Negative) Urine Glucose (UA) (Negative) Urine Ketones (Negative) Urine Blood (Negative) Urine Nitrite (Negative) Urine Bilirubin (Negative) Urine Urobilinogen (Negative) Ur Leukocyte Esterase (Negative) Urine WBC (Auto) (0-5) /hpf Urine RBC (Auto) (0-4) /hpf U Hyaline Cast (Auto) (0-5) /lpf U Epithel Cells (Auto) (0-5) /lpf Urine Bacteria (Auto) (Negative) Nasal Screen MRSA (PCR) (Negative) Stl C. cayetanensis PCR (NotDetected) Stool Rotavirus A PCR (NotDetected) Stl Adenov F 40/41 PCR (NotDetected) Stool Astrovirus (PCR) (NotDetected) Stool Campylobacter PCR (NotDetected) Stl C. diff Tox B Gene Negative Cdiff Gene (Neg) Stool Cryptosporidium PCR (NotDetected) Stl E.coli Shiga Tox PCR (NotDetected) Stl Enterotoxigenic E PCR (NotDetected) Stool EPEC (PCR) (NotDetected) Stool EAEC (PCR) (NotDetected) Stl E. histolytica PCR (NotDetected) Stool Giardia Lamblia PCR (NotDetected) Stool Salmonella PCR (NotDetected) Stool Sapovirus (PCR) (NotDetected) Stl P. shigelloides PCR (NotDetected) Stl Shigella/EIEC PCR (NotDetected) St Y.enterocolitica PCR (NotDetected) Stool Vibrio (PCR) (NotDetected) Stl Vibrio cholerae PCR (NotDetected) Stl Norovirus GI/GII PCR (NotDetected) Adenovirus (PCR) (NotDetected) B. pertussis DNA (PCR) (NotDetected) B.parapertussis DNA PCR (NotDetected) C. pneumoniae DNA (PCR) (NotDetected) Coronavirus OC43 (PCR) (NotDetected) Coronavirus HKU1 (PCR) (NotDetected) Coronavirus 229E (PCR) (NotDetected) SARS-CoV-2 (PCR) (NotDetected) Coronavirus NL63 (PCR) (NotDetected) Human Metapneumovir PCR (NotDetected) Influenza Type A (PCR) (NotDetected) Influenza Type B (PCR) (NotDetected) M. pneumoniae (PCR) (NotDetected) Parainfluenza 1 (PCR) (NotDetected) Parainfluenza 2 (PCR) (NotDetected) Parainfluenza 3 (PCR) (NotDetected) Parainfluenza 4 (PCR) (NotDetected) RSV (PCR) (NotDetected) Entero/Rhino (PCR) (NotDetected) Diagnostic Findings Exam(s): CT ABDOMEN + PELVIS Without Contrast EXAM: CT Abdomen and Pelvis Without Intravenous Contrast CLINICAL HISTORY: Reason for exam: ab pain, fever, dementia, UTI. TECHNIQUE: Axial computed tomography images of the abdomen and pelvis without intravenous contrast. CTDI is 25.55 mGy and DLP is 1381.97 mGy-cm. Automated exposure control was utilized for the study. A dose lowering technique was utilized adhering to the principles of ALARA. COMPARISON: No relevant prior studies available. FINDINGS: Lung bases: Unremarkable. No mass. No consolidation. Heart: Cardiomegaly. ABDOMEN: Liver: Unremarkable. Gallbladder and bile ducts: Unremarkable. No calcified stones. No ductal dilation. Pancreas: Unremarkable. No ductal dilation. Spleen: Unremarkable. No splenomegaly. Adrenals: Unremarkable. No mass. Kidneys and ureters: Unremarkable. No hydronephrosis or nephrolithiasis. Stomach and bowel: Liquid stool in the colon, correlate the diarrheal disease. No obstruction. No mucosal thickening. PELVIS: Appendix: No findings to suggest acute appendicitis. Bladder: Unremarkable. No stones. Reproductive: Unremarkable as visualized. ABDOMEN and PELVIS: Intraperitoneal space: Unremarkable. No free air. No significant fluid collection. Bones/joints: Degenerative changes of the spine. No acute fracture. No dislocation. Soft tissues: Unremarkable. Vasculature: Atherosclerotic changes of the aorta. No abdominal aortic aneurysm. Lymph nodes: Unremarkable. No enlarged lymph nodes. Tubes, lines and devices: Pacemaker leads. IMPRESSION: 1. No hydronephrosis or nephrolithiasis. 2. Liquid stool in the colon, correlate the diarrheal disease. Electronically signed by: Richard Mera MD 03/25/23 01:02 AM Dictated: 03/25/23101 Transcribed: 03/25/23101 KUB CLINICAL HISTORY: Severe abdominal distention. Sepsis. COMPARISON STUDY: KUB September 15, 2021. CT of the abdomen and pelvis March 24, 2023. FINDINGS: No dilated small bowel loops are identified. Moderate distention of the colon is similar to prior CT of March 24, 2023. This is also similar to multiple additional exams. No radiographic evidence for pneumatosis. No evidence for free air on supine exam. IMPRESSION: No significant change in moderate colonic dilatation, shown on multiple prior studies. This may reflect colonic pseudoobstruction/ileus. ACT 112: Negative or not required by law.
[2023-03-25] MEDS ORDERED: MoRPHine SULFATE 2 MG/ML CARP IV STA (10:41)
[2023-03-25] MEDS: PANTOprazole 40 MG in SYRINGE 0 ML IV SCH (11:00)
[2023-03-25] MEDS: HEPARIN SOD 5,000 UNIT/0.5 ML VIAL SQ SCH ×2 (11:11→21:19)
--- NOTE | 2023-03-25 12:39 | XRay Report ---
KUB CLINICAL HISTORY: ngt placement COMPARISON STUDY: CT of the abdomen and pelvis March 24, 2022. KUB performed earlier today. FINDINGS: Left subclavian pacer leads are partially imaged. Tip of nasogastric tube is within the gas tric fundus. Visualized portions of the distended colon are similar in appearance. IMPRESSION: 1. Tip of nasogastric tube within the gastric fundus. 2. Colonic dilatation, better depicted on prior KUB. ACT 112: Negative or not required by law. Electronically signed by: Yosef Still M.D. 03/25/2023 12:38 PM
[2023-03-25 13:22] LABS: Base Excess VBG -13.6 mEq/L; HCO3 VBG 12 mmol/L; Oxygen Saturation VBG 71.7 %; PCO2 VBG 25 mmHg (38-50); PO2 VBG 39 mmHg; pH VBG 7.27 (7.36-7.41)
--- NOTE | 2023-03-25 15:40 | Gastrointestinal Consultation ---
Date of Consultation March 25, 2023 Assessment & Plan (1) Sepsis due to urinary tract infection: 78 yo male with multiple comorbidities as noted aboe including chronic colonic pseudo-obstruction (see prior notes from including discussions with family) admitted with sepsis. Colon is distende on imaging and this is chronic. Abd is not tender. Would continue with conservaitve mgt with bowel rest, IVF, NGT, avoidance of narcotics, maintenance of electrolytes. treatment of UTI per primary service. Repeat KUB daily. (2) Acute diarrhea: (3) Pseudo-obstruction of colon: (4) Cece syndrome: (5) Acute kidney injury superimposed on chronic kidney disease: History of Present Illness Reason for Consultation: abd pain, diarrhea Requesting Physician: Dr. Sales Attending Physician: Tremaine Sales MD History of Present Illness Patient is a 78 yo male with PMH of CKD, DM2, anemia, HTN, HOCM, spinal stenosis, cardiac pacemaker, BPH, anxiety, & depression and chronic [place]/colonic pseudo-obstruction who was sent to the hospital from a half-way due to concerns for diarrhea, fevers, and hypotension. In the ED, he complained of nausea and diarrhea. Workup in the emergency department suggestive of sepsis due to UTI, with temperature 38.5, SBP in the lower 80s, and tachycardia. responded to IVF hydration. Significant laboratories: Creatinine 2.94, glucose 129, anion gap 16, lactate 5.9. Stool testing negative so far. C diff pending. Imaging consi stent with prior dx and showed colonic dilation. NGT placed. Patient resting comfortably. When awakened he denies any abd pain at rest or with palpation. Brother is at the bedside. Allergies Allergy/AdvReac Type Severity Reaction Status Date / Time No Known Allergies Allergy ` Verified 03/24/23 20:43 Home Medications Medication Instructions Recorded Confirmed Type blood sugar diagnostic (OneTouch #100 ea 06/29/20 03/24/23 Rx Ultra Blue Test Strip) finasteride 5 mg tablet (Proscar) 5 mg PO QAM #30 tabs 10/09/20 03/24/23 Rx allopurinol 300 mg tablet 300 mg PO QAM 10/19/20 03/24/23 History aspirin 81 mg chewable tablet 81 mg PO QAM 10/19/20 03/24/23 History atorvastatin 40 mg tablet 40 mg PO HS #30 tabs 10/29/20 03/24/23 Rx cholecalciferol (vitamin D3) 25 1,000 units PO QAM 12/16/20 03/24/23 History mcg (1,000 unit) capsule tamsulosin 0.4 mg capsule 0.4 mg PO QPM 12/16/20 03/24/23 History ascorbic acid (vitamin C) 250 mg 250 mg PO QAM 03/01/21 03/24/23 History tablet isosorbide mononitrate 60 mg 60 mg PO QAM 03/01/21 03/24/23 History tablet,extended release 24 hr metoprolol succinate 200 mg 200 mg PO QAM 03/01/21 03/24/23 History capsule sprinkle, ext. release 24 hr ropinirole 1 mg tablet 1 mg PO QAM 03/01/21 03/24/23 History potassium chloride 20 mEq 20 meq PO QAM 07/16/21 03/24/23 History tablet,extended release simethicone 125 mg chewable tablet 125 mg PO Q6H PRN GAS RELIEF 07/16/21 03/24/23 History cyanocobalamin (vitamin B-12) 1,000 mcg PO QAM 07/25/21 03/24/23 History 1,000 mcg tablet (Vitamin B-12) bisacodyl 10 mg rectal suppository 10 mg HI Q2D #12 ea 09/16/21 03/24/23 Rx insulin glargine 100 unit/mL (3 5 unit (0.05 mL) SC QAM #0 mL 09/16/21 03/24/23 Rx mL) subcutaneous pen (Lantus Solostar U-100 Insulin) polyethylene glycol 3350 17 gram 17 g PO DAILY #30 ea 09/16/21 03/24/23 Rx oral powder packet (Miralax) Senna Syrup 5 ml PO BID 03/24/23 03/24/23 History acetaminophen 325 mg tablet 650 mg PO Q6 PRN Pain 03/24/23 03/24/23 History acetaminophen 325 mg tablet 650 mg PO Q6 PRN temp>100 03/24/23 03/24/23 History hydralazine 50 mg tablet 50 mg PO TID 03/24/23 03/24/23 History insulin aspart U-100 100 unit/mL 2 unit SC WM 03/24/23 03/24/23 History (3 mL) subcutaneous pen (Novolog FlexPen U-100 Insulin aspart) menthol 0.44 %-zinc oxide 20.6 % 1 applic topical QS 03/24/23 03/24/23 History topical ointment (Calmoseptine) [id number] acid 0.4 1 tab PO DAILY 03/24/23 03/24/23 History mg-lycopene 300 mcg-lutein 250 mcg tablet (ABC Complete Senior 50 Plus) Patient History Medical History Metabolic acidosis Acute hypokalemia Acute hypotension BRIANNA (acute kidney injury) Elevated troponin Diarrhea Hypokalemia BRIANNA (acute kidney injury) DVT prophylaxis Hypotension Bladder outlet obstruction Sinus node dysfunction DVT prophylaxis Fecal impaction BRIANNA (acute kidney injury) CKD (chronic kidney disease) Elevated troponin BPH with obstruction/lower urinary tract symptoms Deep vein thrombosis (DVT) of left lower extremity Bereavement Skin carcinoma Anemia of chronic disease Hypertrophic obstructive cardiomyopathy (HOCM) Low back pain Toe infection Proteinuria Syncope and collapse Subclavian vein thromboembolism, acute Spinal stenosis Mobitz (type) II atrioventricular block Diabetes Hypertension Surgical History History of cataract surgery Status post placement of cardiac pacemaker H/O arthroscopy of knee Family History Mother Ovarian cancer Diabetes Father Diabetes Unknown Coronary heart disease Denies family history of Prostate cancer Myocardial infarction Breast cancer Colorectal cancer Social History Smoking Status: Unknown if ever smoked Second Hand Exposure: No; Do You Dip or Chew Tobacco: No; Hx Substance Use: No Preferred Language: Cymraes 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 Beliefs That Will Affect Care: None marital status: / Current Living Situation: Half-Way Current Living Situation Comment: [facility] current occupational status: retired How many Children do You have: 0 Feels Safe at Home: Yes Childhood Exposure to Second-Hand Smoke: No caffeine: Yes Dental Care, Regularly: Yes Physical Activity Frequency: 1-2 Times per Week Seatbelt Use: always Sunscreen Use: No Assistive Devices: Walker Review of Systems Review of Systems: All systems reviewed & are unremarkable except as noted in Subjective and Unobtainable due to mental health condition Physical Exam Constitutional: WD/WN, vitals as above Eyes: PERRL, conjunctivae normal, anicteric sclerae Neck: trachea midline, no thyromegaly Respiratory: normal respiratory effort, lungs clear to auscultation Cardiovascular: RRR, no murmur, no edema Gastrointestinal (Abdomen): Inspection/Auscultation: + abdomen distended and normal bowel sounds Percussion/Palpation: abdomen soft non-tender to palpation Musculoskeletal: no cyanosis or clubbing, extremities motor strength 5/5 Neurologic: CN's II-XI intact bilaterally Results & Data Vital Signs (Past 12 Hours) Vital Signs Temp Pulse Pulse Resp BP Pulse Ox Pulse Ox 03/25/23 14:24 36.5 C 70 19 93/56 L 99 03/25/23 06:55 77 03/25/23 06:37 76 37 H 81/47 L 99 03/25/23 05:34 83 31 H 100/53 L 100 03/25/23 05:10 79 33 H 87/40 L 98 03/25/23 04:38 77 38 H 107/88 98 03/25/23 04:34 73 03/25/23 04:28 75 33 H 80/49 L 97 03/25/23 04:28 98 O2 Del Method O2 Del Method O2 Flow Rate 03/25/23 14:24 Room Air 03/25/23 06:55 03/25/23 06:37 Nasal Cannula 2 03/25/23 05:34 Nasal Cannula 2 03/25/23 05:10 Nasal Cannula 2 03/25/23 04:38 Nasal Cannula 2 03/25/23 04:34 03/25/23 04:28 Nasal Cannula 2 03/25/23 04:28 Nasal Cannula
[2023-03-25] MEDS ORDERED: LACTATED RINGER'S 500 ML IV ONE (16:35)
[2023-03-25] MEDS ORDERED: DAPTOmycin 450 MG in SYRINGE 0 ML IV SCH (16:45)
--- NOTE | 2023-03-25 19:16 | XRay Report ---
XR chest 1V portable CLINICAL HISTORY: check NG placement COMPARISON STUDY: KUB March 25, 2023 at 12:26 PM. FINDINGS: The tip of the nasogastric tube projects over the right lower lobe. This is likely within a right lower lobe bronchus. Left subclavian pacer is incidentally noted. Dilatation of visualized por tions of the colon is again noted. IMPRESSION: 1. Malpositioned nasogastric tube within a right lower lobe bronchus. The tube should be repositione d. Findings discussed with Dr. Sales at time of dictation. 2. Colonic dilatation, better depicted on prior KUB. ACT 112: Negative or not required by law. Electronically signed by: Yosef Still M.D. 03/25/2023 7:15 PM
[2023-03-25 20:29] LABS: Base Excess VBG -8.1 mEq/L; HCO3 VBG 15 mmol/L; Oxygen Saturation VBG 87.3 %; PCO2 VBG 25 mmHg (38-50); PO2 VBG 54 mmHg; pH VBG 7.39 (7.36-7.41)
[2023-03-25] MEDS: ACETAMINOPHEN 1,000 MG/100 ML VIAL IV PRN (20:40)
[2023-03-25 20:53] LABS: BUN Creatinine Ratio 26.1 (10-20); Calcium 8.1 mg/dl (8.6-10.3); Creatinine Clr Calc Pharmacy 18.6 ml/min; Est GFR (African American) 19.3 ml/min; Est GFR (Non-African American) 16.6 ml/min; Potassium 4.6 mmol/L (3.5-5.1)
[2023-03-26] MEDS: INSULIN ASPART PER UNIT CHARGE SC SCH ×4 (00:05→18:31)
[2023-03-26 06:32] LABS: Creatinine Clr Calc Pharmacy 18.9 ml/min; Est GFR (African American) 19.8 ml/min; Est GFR (Non-African American) 17.1 ml/min; Magnesium 1.4 mg/dl (1.7-2.4); Phosphorus 4.1 mg/dl (2.5-4.9); Potassium 3.8 mmol/L (3.5-5.1)
[2023-03-26 06:37] LABS: Hematocrit (blood only) 24.3 % (42.0-52.0); Hemoglobin 8.1 g/dl (14.0-18.0); Mean Corpuscular Hemoglobin 31.3 pg (25.0-34.0); Mean Corpuscular Hgb Conc 33.3 g/dL (32.0-36.0); Mean Corpuscular Volume 93.8 fL (80.0-100.0); Mean Platelet Volume 11.6 fL (9.4-12.4); Platelet Count 100 K/uL (130-400); RDW Coefficient of Variation 14.3 % (11.5-14.5); RDW Standard Deviation 49.4 fL (36.4-46.3); Red Blood Count 2.59 M/uL (4.70-6.10); White Blood Count 6.66 K/ul (4.8-10.8)
[2023-03-26 07:31] LABS: Basophils # (auto) 0.03 K/uL (0.00-0.20); Basophils % (auto) 0.5 %; Dohle Bodies 2+; Echinocytes 2+; Eosinophils # (auto) 0.03 K/uL (0.00-0.50); Eosinophils % (auto) 0.5 %; Immature Granulocytes # (auto) 0.08 K/uL (0.01-0.20); Immature Granulocytes % (auto) 1.2 %; Lymphocytes # (auto) 0.84 K/uL (1.20-3.40); Lymphocytes % (auto) 12.6 %; Monocytes # (auto) 0.63 K/uL (0.11-0.59); Monocytes % (auto) 9.5 %; Neutrophils # (auto) 5.05 K/uL (1.40-6.50); Neutrophils % (auto) 75.7 %
[2023-03-26] MEDS: PIPERACILLIN/TAZOBACTAM 4.5 GM in DEXTROSE 5% MINI-B 100 ML IV SCH ×2 (07:56→20:45)
[2023-03-26] MEDS: MAGNESIUM SULFATE / D5W 1 GM/100 ML BAG IV SCH ×2 (07:57→09:59)
[2023-03-26] MEDS: HEPARIN SOD 5,000 UNIT/0.5 ML VIAL SQ SCH ×2 (07:57→20:45)
--- NOTE | 2023-03-26 09:09 | Hospitalist Progress Note ---
Date of Service March 26, 2023 Assessment & Plan (1) Severe sepsis: Plan: suspected source - intra-abdominal ?ischemic although he has chronic Cece's he has severe abd distension with pain (generalized) along with foul-smelling stool and [facility] of [facility] a/p with liquid stool throughout the colon stool Biofire negative c diff x 2 (I repeated c diff to ensure first one wasn't falsely negative) both negative respiratory Biofire negative cxr without obvious pneumonia u/a mildly dirty but no bacteria or WBCs on microscopy - this was not sent for culture and urine samples are thrown away at 24 hours Blood cultures negative at 24 hours continue zosyn Daptomycin is renally dosed every 48 hours therefore hold the following dose unless blood cultures are positive Blood pressure appears to normalize today. Will continue on sodium bicarb gave D5 added due to glucose in the 70s. Suspect this will be the last sodium bicarb IV fluid he will require and will switch to lactated Ringer's following this for as long as he is n.p.o. I suspect he may develop some fluid overload if his renal function and urine output does not improve quickly enough and he may require a few Lasix doses over the next 2 to 3 days. If respiratory functioning significant worsening overnight consider pulmonary edema. (2) Elevated lactic acid level: Plan: Anion gap mostly closed with lactate level resolved, therefore suspect his anion gap was mostly due to elevated lactate from hypertension causing poor organ perfusion. Delta bicarb 9 with delta anion gap 6 on labs 03/25 suggests additional non- anion gap metabolic acidosis in addition presumably from gastrointestinal bicarb loss and BRIANNA which has mostly resolved at this time with sodium bicarb intravenous drip. (3) Pseudo-obstruction of colon: Plan: chronic Cece's previously seen by both GI & gen surg for this on prior admissions cont broad-spectrum IV abx (zosyn) Abdomen is nontender today but remains distended (I suspect this is his baseline) Appreciate GI and surgical consultations - advance diet per surgery recommendations (4) Acute diarrhea: Plan: foul-smelling stool stool biofire negative c diff x 2 both negative respiratory biofire including COVID negative intestinal/colonic ischemia given his severe pain and tenderness on abdominal exam - this appears to be a reasonable assumption from previous provider given today's abdominal exam is benign while NPO gen surg consult appreciated GI consult appreciated Monitor closely for worsening gastrointestinal symptoms at white blood count as diet is increased given concern for ischemia. Could consider CT angiogram although given he is not a surgical candidate and would need to give intravenous contrast doubtful benefit would not outweigh any risk. (5) Acute kidney injury superimposed on chronic kidney disease: Plan: baseline Cr ~1.4 (02/2023) now > 3 likely sepsis associated ATN Suspect improvement as long as he continues to urinate over the next 3 to 4 days given he had significant hypertension for the majority of yesterday. Continue IV fluids as above. (6) Hypertrophic cardiomyopathy: Plan: follows with [facility] pre-load dependent state NO evidence of any decompensated; he is massively volume depleted hold cardiac meds IV fluids (7) CHB (complete heart block): Plan: s/p pacemaker placement in the past (8) Chronic kidney disease, stage III (moderate): Plan: baseline Cr ~1.4 baseline CrCl about 45 (9) Clinton syndrome: Plan: as above (10) Diabetes 1.5, managed as type 2: Plan: BSGs q6h while NPO novolog SSI (11) Status post placement of cardiac pacemaker: (12) Hypertension: Plan: hold ALL BP meds due to hypotension (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: Plan: hold flomax cont fung (14) Acute metabolic encephalopathy: Plan: 2nd to severe sepsis, acidosis, etc supportive care Renewed soft mitts as continues to remain at risk of pulling out his IVs (15) Thrombocytopenia: Plan: likely due to sepsis Continue to monitor Plan VTE prophylaxis - heparin 5000 units SQ BID Diet - NPO, advance per surgical recommendations Disposition - continued admission to PCU Previous provider updated brother extensively yesterday due to critical illness. I tried to update brother over the phone today however no answer on both numbers on EHR. He is his more stable today than yesterday but prognosis remains guarded. Expect renal function to improve over the next 3 to 4 days as his blood pressure was still intermittently low yesterday. Admission and Anticipated Discharge Date Admission Date: March 25, 2023 Subjective Patient unable to give any history. He denies any pain at this time. Chest x-ray from yesterday shows NG tube in the right lower lobe bronchus which was subsequently removed. He denies any pain. Currently NPO per surgical recommendations. Review of Systems Review of Systems: Unobtainable due to cognitive status Physical Exam Constitutional: well developed; + not well nourished and no acute distress Eyes: + anicteric sclerae; normal pupil size Respiratory: normal respiratory effort, lungs clear to auscultation Cardiovascular: RRR, no murmur, no edema Gastrointestinal (Abdomen): Inspection/Auscultation: abdomen normal to inspection and + abdomen distended Percussion/Palpation: abdomen soft; abdomen nontender, no guarding and abdomen not rigid Skin: no rashes, warm and dry Psychiatric: Orientation: alert; + not oriented x 3 Results & Data Results & Data Vital Signs (Past 12 Hours) Vital Signs Temp Pulse Pulse Resp BP BP Pulse Ox 03/26/23 03:13 36.7 C 70 18 132/75 97 03/26/23 00:47 36.8 C 79 118/63 98 03/25/23 22:33 77 O2 Del Method 03/26/23 03:13 Room Air 03/26/23 00:47 Room Air 03/25/23 22:33 Laboratory Results Abnormal lab results 03/25/23 03/25/23 03/26/23 Range/Units 18:07 20:18 05:50 RBC 2.59 L (4.70-6.10) M/uL Hgb 8.1 L (14.0-18.0) g/dl Hct 24.3 L (42.0-52.0) % RDW Std Deviation 49.4 H (36.4-46.3) fL Plt Count 100 L (130-400) K/uL Lymph # (Auto) 0.84 L (1.20-3.40) K/uL Kay # (Auto) 0.63 H (0.11-0.59) K/uL VBG pCO2 25 L (38-50) mmHg Chloride 109 H 108 H (98-107) mmol/L Carbon Dioxide 14 L 18 L (21-32) mmol/L Anion Gap 15 H 13 H (3-11) BUN 87 H 88 H (6-23) mg/dl Creatinine 3.33 H 3.26 H (0.6-1.4) mg/dl BUN/Creatinine Ratio 26.1 H 27.0 H (10-20) Glucose 100 H (70-99(Fasting)) mg/dl POC Glucose 134 H (70-99) mg/dl Lactate 2.7 H* (0.4-2.0) mmol/L Calcium 8.1 L 8.0 L (8.6-10.3) mg/dl Magnesium 1.4 L (1.7-2.4) mg/dl C-Reactive Protein (0-0.5) mg/dl Albumin 3.0 L (3.4-5.0) gm/dl Procalcitonin (0-0.5) ng/ml 03/26/23 03/26/23 Range/Units 09:29 14:06 RBC (4.70-6.10) M/uL Hgb (14.0-18.0) g/dl Hct (42.0-52.0) % RDW Std Deviation (36.4-46.3) fL Plt Count (130-400) K/uL Lymph # (Auto) (1.20-3.40) K/uL Kay # (Auto) (0.11-0.59) K/uL VBG pCO2 (38-50) mmHg Chloride (98-107) mmol/L Carbon Dioxide (21-32) mmol/L Anion Gap (3-11) BUN (6-23) mg/dl Creatinine (0.6-1.4) mg/dl BUN/Creatinine Ratio (10-20) Glucose (70-99(Fasting)) mg/dl POC Glucose 107 H (70-99) mg/dl Lactate (0.4-2.0) mmol/L Calcium (8.6-10.3) mg/dl Magnesium (1.7-2.4) mg/dl C-Reactive Protein 22.29 H (0-0.5) mg/dl Albumin (3.4-5.0) gm/dl Procalcitonin 59.42 H (0-0.5) ng/ml PG Care Time/CCT Total # of Minutes Spent Total Time Spent with Patient: Total time spent is greater than 50% in coordination of care (as documented) at patient's floor/unit and/or counseling patient: Coding Level of Care Code 47641 SUB INP/OBS CARE 3/50MIN Diagnoses Severe sepsis A41.9; R65.20 Elevated lactic acid level R79.89 Pseudo-obstruction of colon K59.81 Acute diarrhea R19.7 Acute kidney injury superimposed on chronic kidney disease N17.9; N18.9 Hypertrophic cardiomyopathy I42.2 CHB (complete heart block) I44.2 Chronic kidney disease, stage III (moderate) N18.30 Cece syndrome K59.81 Diabetes 1.5, managed as type 2 E13.9 Status post placement of cardiac pacemaker Z95.0 Hypertension, unspecified type I10 Hypertension type: unspecified BPH with obstruction/lower urinary tract symptoms N40.1; N13.8 Acute metabolic encephalopathy G93.41 Thrombocytopenia D69.6 (12) Hypertension Hypertension type: unspecified Qualified Code(s): I10 - Essential (primary) hypertension
[2023-03-26] MEDS ORDERED: STAT IV/IM STA (09:11)
[2023-03-26] MEDS ORDERED: SODIUM BICARBONATE 8.4% 150 MEQ in DEXTROSE 5% 1,000 ML IV SCH (09:15)
--- NOTE | 2023-03-26 09:30 | Electrocardiogram Report ---
Test Reason : Blood Pressure : / mmHG Vent. Rate : 102 BPM Atrial Rate : 102 BPM P-R Int : 230 ms QRS Dur : 118 ms QT Int : 350 ms P-R-T Axes : 021 005 000 degrees QTc Int : 456 ms Poor data quality, interpretation may be adversely affected Sinus tachycardia with 1st degree A-V block Right bundle branch block Anteroseptal infarct , age undetermined Abnormal ECG When compared with ECG of 07-SEP-2021 13:42, Sinus rhythm has replaced Electronic atrial pacemaker Vent. rate has increased BY 48 BPM Anteroseptal infarct is now Present Confirmed by Adelof Prieto ([id number]) on 03/26/2023 9:30:21 AM Referred By: [facility] Confirmed By:Adelfo Prieto
[2023-03-26] MEDS: SODIUM BICARBONATE 8.4% 100 MEQ in WATER, STERILE 1,000 ML IV SCH (09:56)
[2023-03-26] MEDS: allopurinoL 300 MG TAB PO SCH (11:08)
[2023-03-26] MEDS: PANTOprazole 40 MG in SYRINGE 0 ML IV SCH (11:08)
--- NOTE | 2023-03-26 14:19 | Surgery Progress Note ---
Date of Service March 26, 2023 Assessment & Plan (1) Pseudo-obstruction of colon: Plan: Assessment: Patient is a 78 years old gentleman with significant PMH- hypertrophic cardiomyopathy, acute kidney injury, left ventricular hypertrophy, recurrent kidney disease stage III, pseudo obstruction of the colon, Cece syndrome, type 2 diabetes, TIA, hypertension, BPH, memory impairment, hyperparathyroidism, and cardiomyopathy. Patient presented to ED with 2-day history fever, diarrhea, and low prepped pressure. Patient said his stomach hurt for last 2 days. T 38.5. Patient had diarrhea last 2 days with no bloody stool. Plan, no indication for urgent surgery now. conservative treatment, resuscitation with IV fluid, NPO, NG tube, consult GI to R/O ischemic bowel. repeat labs 6 hours based pt's co-morbilities, the prognosis is poor . D/W pt attending. will F/U. 03/26/2023 2:18 PM doing better, passed some liquid stool, clear diet today, continue conservative treatment will F/U Admission and Anticipated Discharge Date Admission Date: March 25, 2023 Subjective pt feels better, pt denies abdominal pain, pt pull out NG tube last night, some diarrhea, no fever. Review of Systems Constitutional: Memory impairment Eyes: as per Subjective / HPI Respiratory: as per Subjective / HPI Cardiovascular: Additional Comments: HTN, hypertrophic obstructive cardiomyopathy, left ventricular outflow tract obstruction, Gastrointestinal: Pseudo colon obstruction, Ogilie syndrome Genitourinary: + problem reported (BPH, chronic kidney disease stage III, acute renal injury) Neurologic: Memory impairment Endocrine: hyperparathyroidism Hematologic / Lymphatic: anemia Physical Exam Eyes: PERRL, conjunctivae normal, anicteric sclerae Respiratory: normal respiratory effort, lungs clear to auscultation Cardiovascular: Rate/Rhythm: regular rate Gastrointestinal (Abdomen): soft, NT, ND, BS +. Neurologic: patellar DTR's 2+ bilat, sensation intact Results & Data Vital Signs (Past 12 Hours) Vital Signs Temp Pulse Resp BP BP Pulse Ox O2 Del Method 03/26/23 11:00 37.0 C 77 18 137/65 115/70 95 Room Air 03/26/23 09:00 36.9 C 63 20 128/74 121/69 98 Room Air 03/26/23 08:00 Room Air 03/26/23 03:13 36.7 C 70 18 132/75 97 Room Air Laboratory Results Lab Results 03/24/23 03/24/23 03/24/23 Range/Units 20:19 20:32 21:11 WBC 3.68 L (4.8-10.8) K/ul RBC 3.73 L (4.70-6.10) M/uL Hgb 11.7 L (14.0-18.0) g/dl Hct 35.3 L (42.0-52.0) % MCV 94.6 (80.0-100.0) fL MCH 31.4 (25.0-34.0) pg MCHC 33.1 (32.0-36.0) g/dL RDW Std Deviation 49.3 H (36.4-46.3) fL RDW Coeff of Nona 14.3 (11.5-14.5) % Plt Count 153 (130-400) K/uL MPV 11.5 (9.4-12.4) fL Immature Gran % (Auto) 0.5 % Neut % (Auto) 66.8 % Lymph % (Auto) 12.8 % [place] % (Auto) 19.6 % Eos % (Auto) 0.0 % Baso % (Auto) 0.3 % Neut # (Auto) 2.46 (1.40-6.50) K/uL Lymph # (Auto) 0.47 L (1.20-3.40) K/uL [place] # (Auto) 0.72 H (0.11-0.59) K/uL Eos # (Auto) 0.00 (0.00-0.50) K/uL Baso # (Auto) 0.01 (0.00-0.20) K/uL Immature Gran # (Auto) 0.02 (0.01-0.20) K/uL Dohle Bodies Echinocytes 1+ VBG pH (7.36-7.41) VBG pCO2 (38-50) mmHg VBG pO2 mmHg VBG HCO3 mmol/L VBG O2 Saturation % VBG Base Excess mEq/L Sodium 139 (136-145) mmol/L Potassium 4.8 (3.5-5.1) mmol/L Chloride 107 (98-107) mmol/L Carbon Dioxide 16 L (21-32) mmol/L Anion Gap 16 H (3-11) BUN 72 H (6-23) mg/dl Creatinine 2.94 H (0.6-1.4) mg/dl Est Cr Clr Drug Dosing Not Reportable Est GFR ( Amer) 22.4 ml/min Est GFR (Non-Af Amer) 19.3 ml/min BUN/Creatinine Ratio 24.5 H (10-20) Glucose 129 H (70-99(Fasting)) mg/dl POC Glucose (70-99) mg/dl Estimat Average Glucose mg/dl Hemoglobin A1c (4.5-5.6) % Lactate (0.4-2.0) mmol/L Calcium 9.2 (8.6-10.3) mg/dl Phosphorus (2.5-4.9) mg/dl Magnesium (1.7-2.4) mg/dl Total Bilirubin 1.5 H (0.2-1.0) mg/dl AST 27 (13-39) U/L ALT 9 (7-52) U/L Alkaline Phosphatase 59 (34-104) U/L C-Reactive Protein (0-0.5) mg/dl Total Protein 6.5 (6.0-8.3) gm/dl Albumin 3.5 (3.4-5.0) gm/dl Globulin 3.0 (2.5-4.0) gm/dl Albumin/Globulin Ratio 1.2 (0.9-2) Lipase 13 (11-82) U/L Procalcitonin (0-0.5) ng/ml Random Cortisol mcg/dl Urine Color Dark Yellow Urine Appearance Clear (Clear) Urine pH 5.0 (4.5-7.5) Ur Specific [place] 1.021 (1.000-1.030) Urine Protein Trace H (Negative) Urine Glucose (UA) Negative (Negative) Urine Ketones Trace H (Negative) Urine Blood Negative (Negative) Urine Nitrite Positive A (Negative) Urine Bilirubin 2+ H (Negative) Urine Urobilinogen Negative (Negative) Ur Leukocyte Esterase Trace H (Negative) Urine WBC (Auto) 1-5 (0-5) /hpf Urine RBC (Auto) 0-4 (0-4) /hpf U Hyaline Cast (Auto) 1-5 (0-5) /lpf U Epithel Cells (Auto) 0-5 (0-5) /lpf Urine Bacteria (Auto) Negative (Negative) Nasal Screen MRSA (PCR) (Negative) Stl C. cayetanensis PCR (NotDetected) Stool Rotavirus A PCR (NotDetected) Stl Adenov F 40/41 PCR (NotDetected) Stool Astrovirus (PCR) (NotDetected) Stool Campylobacter PCR (NotDetected) Stl C. diff Tox B Gene (Neg) Stool Cryptosporidium PCR (NotDetected) Stl E.coli Shiga Tox PCR (NotDetected) Stl Enterotoxigenic E PCR (NotDetected) Stool EPEC (PCR) (NotDetected) Stool EAEC (PCR) (NotDetected) Stl E. histolytica PCR (NotDetected) Stool Giardia Lamblia PCR (NotDetected) Stool Salmonella PCR (NotDetected) Stool Sapovirus (PCR) (NotDetected) Stl P. shigelloides PCR (NotDetected) Stl Shigella/EIEC PCR (NotDetected) St Y.enterocolitica PCR (NotDetected) Stool Vibrio (PCR) (NotDetected) Stl Vibrio cholerae PCR (NotDetected) Stl Norovirus GI/GII PCR (NotDetected) Adenovirus (PCR) Not Detected (NotDetected) B. pertussis DNA (PCR) Not Detected (NotDetected) B.parapertussis DNA PCR Not Detected (NotDetected) C. pneumoniae DNA (PCR) Not Detected (NotDetected) Coronavirus OC43 (PCR) Not Detected (NotDetected) Coronavirus HKU1 (PCR) Not Detected (NotDetected) Coronavirus 229E (PCR) Not Detected (NotDetected) SARS-CoV-2 (PCR) Not Detected (NotDetected) Coronavirus NL63 (PCR) Not Detected (NotDetected) Human Metapneumovir PCR Not Detected (NotDetected) Influenza Type A (PCR) Not Detected (NotDetected) Influenza Type B (PCR) Not Detected (NotDetected) M. pneumoniae (PCR) Not Detected (NotDetected) Parainfluenza 1 (PCR) Not Detected (NotDetected) Parainfluenza 2 (PCR) Not Detected (NotDetected) Parainfluenza 3 (PCR) Not Detected (NotDetected) Parainfluenza 4 (PCR) Not Detected (NotDetected) RSV (PCR) Not Detected (NotDetected) Entero/Rhino (PCR) Not Detected (NotDetected) 03/24/23 03/25/23 03/25/23 Range/Units 22:40 00:46 04:35 WBC 3.73 L (4.8-10.8) K/ul RBC 2.97 L (4.70-6.10) M/uL Hgb 9.4 L (14.0-18.0) g/dl Hct 28.9 L (42.0-52.0) % MCV 97.3 (80.0-100.0) fL MCH 31.6 (25.0-34.0) pg MCHC 32.5 (32.0-36.0) g/dL RDW Std Deviation 50.8 H (36.4-46.3) fL RDW Coeff of Nona 14.5 (11.5-14.5) % Plt Count 121 L (130-400) K/uL MPV 11.2 (9.4-12.4) fL Immature Gran % (Auto) 0.5 % Neut % (Auto) 67.0 % Lymph % (Auto) 12.9 % [place] % (Auto) 19.3 % Eos % (Auto) 0.0 % Baso % (Auto) 0.3 % Neut # (Auto) 2.50 (1.40-6.50) K/uL Lymph # (Auto) 0.48 L (1.20-3.40) K/uL [place] # (Auto) 0.72 H (0.11-0.59) K/uL Eos # (Auto) 0.00 (0.00-0.50) K/uL Baso # (Auto) 0.01 (0.00-0.20) K/uL Immature Gran # (Auto) 0.02 (0.01-0.20) K/uL Dohle Bodies 1+ Echinocytes 1+ VBG pH (7.36-7.41) VBG pCO2 (38-50) mmHg VBG pO2 mmHg VBG HCO3 mmol/L VBG O2 Saturation % VBG Base Excess mEq/L Sodium 140 (136-145) mmol/L Potassium 5.2 H (3.5-5.1) mmol/L Chloride 111 H (98-107) mmol/L Carbon Dioxide 12 L (21-32) mmol/L Anion Gap 17 H (3-11) BUN 74 H (6-23) mg/dl Creatinine 3.21 H (0.6-1.4) mg/dl Est Cr Clr Drug Dosing Not Reportable Est GFR ( Amer) 20.2 ml/min Est GFR (Non-Af Amer) 17.4 ml/min BUN/Creatinine Ratio 23.1 H (10-20) Glucose 156 H (70-99(Fasting)) mg/dl POC Glucose (70-99) mg/dl Estimat Average Glucose 148 mg/dl Hemoglobin A1c 6.8 H (4.5-5.6) % Lactate 5.9 H* 7.5 H* (0.4-2.0) mmol/L Calcium 8.0 L (8.6-10.3) mg/dl Phosphorus 4.5 (2.5-4.9) mg/dl Magnesium (1.7-2.4) mg/dl Total Bilirubin (0.2-1.0) mg/dl AST (13-39) U/L ALT (7-52) U/L Alkaline Phosphatase (34-104) U/L C-Reactive Protein (0-0.5) mg/dl Total Protein (6.0-8.3) gm/dl Albumin 3.2 L (3.4-5.0) gm/dl Globulin (2.5-4.0) gm/dl Albumin/Globulin Ratio (0.9-2) Lipase (11-82) U/L Procalcitonin (0-0.5) ng/ml Random Cortisol mcg/dl Urine Color Urine Appearance (Clear) Urine pH (4.5-7.5) Ur Specific [place] (1.000-1.030) Urine Protein (Negative) Urine Glucose (UA) (Negative) Urine Ketones (Negative) Urine Blood (Negative) Urine Nitrite (Negative) Urine Bilirubin (Negative) Urine Urobilinogen (Negative) Ur Leukocyte Esterase (Negative) Urine WBC (Auto) (0-5) /hpf Urine RBC (Auto) (0-4) /hpf U Hyaline Cast (Auto) (0-5) /lpf U Epithel Cells (Auto) (0-5) /lpf Urine Bacteria (Auto) (Negative) Nasal Screen MRSA (PCR) Negative (Negative) Stl C. cayetanensis PCR (NotDetected) Stool Rotavirus A PCR (NotDetected) Stl Adenov F 40/41 PCR (NotDetected) Stool Astrovirus (PCR) (NotDetected) Stool Campylobacter PCR (NotDetected) Stl C. diff Tox B Gene (Neg) Stool Cryptosporidium PCR (NotDetected) Stl E.coli Shiga Tox PCR (NotDetected) Stl Enterotoxigenic E PCR (NotDetected) Stool EPEC (PCR) (NotDetected) Stool EAEC (PCR) (NotDetected) Stl E. histolytica PCR (NotDetected) Stool Giardia Lamblia PCR (NotDetected) Stool Salmonella PCR (NotDetected) Stool Sapovirus (PCR) (NotDetected) Stl P. shigelloides PCR (NotDetected) Stl Shigella/EIEC PCR (NotDetected) St Y.enterocolitica PCR (NotDetected) Stool Vibrio (PCR) (NotDetected) Stl Vibrio cholerae PCR (NotDetected) Stl Norovirus GI/GII PCR (NotDetected) Adenovirus (PCR) (NotDetected) B. pertussis DNA (PCR) (NotDetected) B.parapertussis DNA PCR (NotDetected) C. pneumoniae DNA (PCR) (NotDetected) Coronavirus OC43 (PCR) (NotDetected) Coronavirus HKU1 (PCR) (NotDetected) Coronavirus 229E (PCR) (NotDetected) SARS-CoV-2 (PCR) (NotDetected) Coronavirus NL63 (PCR) (NotDetected) Human Metapneumovir PCR (NotDetected) Influenza Type A (PCR) (NotDetected) Influenza Type B (PCR) (NotDetected) M. pneumoniae (PCR) (NotDetected) Parainfluenza 1 (PCR) (NotDetected) Parainfluenza 2 (PCR) (NotDetected) Parainfluenza 3 (PCR) (NotDetected) Parainfluenza 4 (PCR) (NotDetected) RSV (PCR) (NotDetected) Entero/Rhino (PCR) (NotDetected) 03/25/23 03/25/23 03/25/23 Range/Units 05:00 05:58 08:47 WBC (4.8-10.8) K/ul RBC (4.70-6.10) M/uL Hgb (14.0-18.0) g/dl Hct (42.0-52.0) % MCV (80.0-100.0) fL MCH (25.0-34.0) pg MCHC (32.0-36.0) g/dL RDW Std Deviation (36.4-46.3) fL RDW Coeff of Nona (11.5-14.5) % Plt Count (130-400) K/uL MPV (9.4-12.4) fL Immature Gran % (Auto) % Neut % (Auto) % Lymph % (Auto) % [place] % (Auto) % Eos % (Auto) % Baso % (Auto) % Neut # (Auto) (1.40-6.50) K/uL Lymph # (Auto) (1.20-3.40) K/uL [place] # (Auto) (0.11-0.59) K/uL Eos # (Auto) (0.00-0.50) K/uL Baso # (Auto) (0.00-0.20) K/uL Immature Gran # (Auto) (0.01-0.20) K/uL Dohle Bodies Echinocytes VBG pH 7.31 L (7.36-7.41) VBG pCO2 25 L (38-50) mmHg VBG pO2 53 mmHg VBG HCO3 13 mmol/L VBG O2 Saturation 85.1 % VBG Base Excess -11.9 mEq/L Sodium 140 (136-145) mmol/L Potassium 5.1 (3.5-5.1) mmol/L Chloride 111 H (98-107) mmol/L Carbon Dioxide 13 L (21-32) mmol/L Anion Gap 16 H (3-11) BUN 76 H (6-23) mg/dl Creatinine 3.11 H (0.6-1.4) mg/dl Est Cr Clr Drug Dosing 19.9 Est GFR ( Amer) 21.0 ml/min Est GFR (Non-Af Amer) 18.1 ml/min BUN/Creatinine Ratio 24.4 H (10-20) Glucose 156 H (70-99(Fasting)) mg/dl POC Glucose 148 H (70-99) mg/dl Estimat Average Glucose mg/dl Hemoglobin A1c (4.5-5.6) % Lactate 4.5 H* (0.4-2.0) mmol/L Calcium 8.3 L (8.6-10.3) mg/dl Phosphorus (2.5-4.9) mg/dl Magnesium (1.7-2.4) mg/dl Total Bilirubin 1.4 H (0.2-1.0) mg/dl AST 30 (13-39) U/L ALT 9 (7-52) U/L Alkaline Phosphatase 37 (34-104) U/L C-Reactive Protein (0-0.5) mg/dl Total Protein 6.1 (6.0-8.3) gm/dl Albumin 3.4 (3.4-5.0) gm/dl Globulin 2.7 (2.5-4.0) gm/dl Albumin/Globulin Ratio 1.3 (0.9-2) Lipase (11-82) U/L Procalcitonin (0-0.5) ng/ml Random Cortisol > 60.00 mcg/dl Urine Color Urine Appearance (Clear) Urine pH (4.5-7.5) Ur Specific [place] (1.000-1.030) Urine Protein (Negative) Urine Glucose (UA) (Negative) Urine Ketones (Negative) Urine Blood (Negative) Urine Nitrite (Negative) Urine Bilirubin (Negative) Urine Urobilinogen (Negative) Ur Leukocyte Esterase (Negative) Urine WBC (Auto) (0-5) /hpf Urine RBC (Auto) (0-4) /hpf U Hyaline Cast (Auto) (0-5) /lpf U Epithel Cells (Auto) (0-5) /lpf Urine Bacteria (Auto) (Negative) Nasal Screen MRSA (PCR) (Negative) Stl C. cayetanensis PCR Not Detected (NotDetected) Stool Rotavirus A PCR Not Detected (NotDetected) Stl Adenov F 40/41 PCR Not Detected (NotDetected) Stool Astrovirus (PCR) Not Detected (NotDetected) Stool Campylobacter PCR Not Detected (NotDetected) Stl C. diff Tox B Gene Negative Cdiff Gene (Neg) Stool Cryptosporidium PCR Not Detected (NotDetected) Stl E.coli Shiga Tox PCR Not Detected (NotDetected) Stl Enterotoxigenic E PCR Not Detected (NotDetected) Stool EPEC (PCR) Not Detected (NotDetected) Stool EAEC (PCR) Not Detected (NotDetected) Stl E. histolytica PCR Not Detected (NotDetected) Stool Giardia Lamblia PCR Not Detected (NotDetected) Stool Salmonella PCR Not Detected (NotDetected) Stool Sapovirus (PCR) Not Detected (NotDetected) Stl P. shigelloides PCR Not Detected (NotDetected) Stl Shigella/EIEC PCR Not Detected (NotDetected) St Y.enterocolitica PCR Not Detected (NotDetected) Stool Vibrio (PCR) Not Detected (NotDetected) Stl Vibrio cholerae PCR Not Detected (NotDetected) Stl Norovirus GI/GII PCR Not Detected (NotDetected) Adenovirus (PCR) (NotDetected) B. pertussis DNA (PCR) (NotDetected) B.parapertussis DNA PCR (NotDetected) C. pneumoniae DNA (PCR) (NotDetected) Coronavirus OC43 (PCR) (NotDetected) Coronavirus HKU1 (PCR) (NotDetected) Coronavirus 229E (PCR) (NotDetected) SARS-CoV-2 (PCR) (NotDetected) Coronavirus NL63 (PCR) (NotDetected) Human Metapneumovir PCR (NotDetected) Influenza Type A (PCR) (NotDetected) Influenza Type B (PCR) (NotDetected) M. pneumoniae (PCR) (NotDetected) Parainfluenza 1 (PCR) (NotDetected) Parainfluenza 2 (PCR) (NotDetected) Parainfluenza 3 (PCR) (NotDetected) Parainfluenza 4 (PCR) (NotDetected) RSV (PCR) (NotDetected) Entero/Rhino (PCR) (NotDetected) 03/25/23 03/25/23 03/25/23 Range/Units 09:09 12:28 13:02 WBC (4.8-10.8) K/ul RBC (4.70-6.10) M/uL Hgb (14.0-18.0) g/dl Hct (42.0-52.0) % MCV (80.0-100.0) fL MCH (25.0-34.0) pg MCHC (32.0-36.0) g/dL RDW Std Deviation (36.4-46.3) fL RDW Coeff of Nona (11.5-14.5) % Plt Count (130-400) K/uL MPV (9.4-12.4) fL Immature Gran % (Auto) % Neut % (Auto) % Lymph % (Auto) % [place] % (Auto) % Eos % (Auto) % Baso % (Auto) % Neut # (Auto) (1.40-6.50) K/uL Lymph # (Auto) (1.20-3.40) K/uL [place] # (Auto) (0.11-0.59) K/uL Eos # (Auto) (0.00-0.50) K/uL Baso # (Auto) (0.00-0.20) K/uL Immature Gran # (Auto) (0.01-0.20) K/uL Dohle Bodies Echinocytes VBG pH 7.27 L (7.36-7.41) VBG pCO2 25 L (38-50) mmHg VBG pO2 39 mmHg VBG HCO3 12 mmol/L VBG O2 Saturation 71.7 % VBG Base Excess -13.6 mEq/L Sodium (136-145) mmol/L Potassium (3.5-5.1) mmol/L Chloride (98-107) mmol/L Carbon Dioxide (21-32) mmol/L Anion Gap (3-11) BUN (6-23) mg/dl Creatinine (0.6-1.4) mg/dl Est Cr Clr Drug Dosing Est GFR ( Amer) ml/min Est GFR (Non-Af Amer) ml/min BUN/Creatinine Ratio (10-20) Glucose (70-99(Fasting)) mg/dl POC Glucose 190 H (70-99) mg/dl Estimat Average Glucose mg/dl Hemoglobin A1c (4.5-5.6) % Lactate 4.5 H* (0.4-2.0) mmol/L Calcium (8.6-10.3) mg/dl Phosphorus (2.5-4.9) mg/dl Magnesium (1.7-2.4) mg/dl Total Bilirubin (0.2-1.0) mg/dl AST (13-39) U/L ALT (7-52) U/L Alkaline Phosphatase (34-104) U/L C-Reactive Protein (0-0.5) mg/dl Total Protein (6.0-8.3) gm/dl Albumin (3.4-5.0) gm/dl Globulin (2.5-4.0) gm/dl Albumin/Globulin Ratio (0.9-2) Lipase (11-82) U/L Procalcitonin (0-0.5) ng/ml Random Cortisol mcg/dl Urine Color Urine Appearance (Clear) Urine pH (4.5-7.5) Ur Specific [place] (1.000-1.030) Urine Protein (Negative) Urine Glucose (UA) (Negative) Urine Ketones (Negative) Urine Blood (Negative) Urine Nitrite (Negative) Urine Bilirubin (Negative) Urine Urobilinogen (Negative) Ur Leukocyte Esterase (Negative) Urine WBC (Auto) (0-5) /hpf Urine RBC (Auto) (0-4) /hpf U Hyaline Cast (Auto) (0-5) /lpf U Epithel Cells (Auto) (0-5) /lpf Urine Bacteria (Auto) (Negative) Nasal Screen MRSA (PCR) (Negative) Stl C. cayetanensis PCR (NotDetected) Stool Rotavirus A PCR (NotDetected) Stl Adenov F 40/41 PCR (NotDetected) Stool Astrovirus (PCR) (NotDetected) Stool Campylobacter PCR (NotDetected) Stl C. diff Tox B Gene Negative Cdiff Gene (Neg) Stool Cryptosporidium PCR (NotDetected) Stl E.coli Shiga Tox PCR (NotDetected) Stl Enterotoxigenic E PCR (NotDetected) Stool EPEC (PCR) (NotDetected) Stool EAEC (PCR) (NotDetected) Stl E. histolytica PCR (NotDetected) Stool Giardia Lamblia PCR (NotDetected) Stool Salmonella PCR (NotDetected) Stool Sapovirus (PCR) (NotDetected) Stl P. shigelloides PCR (NotDetected) Stl Shigella/EIEC PCR (NotDetected) St Y.enterocolitica PCR (NotDetected) Stool Vibrio (PCR) (NotDetected) Stl Vibrio cholerae PCR (NotDetected) Stl Norovirus GI/GII PCR (NotDetected) Adenovirus (PCR) (NotDetected) B. pertussis DNA (PCR) (NotDetected) B.parapertussis DNA PCR (NotDetected) C. pneumoniae DNA (PCR) (NotDetected) Coronavirus OC43 (PCR) (NotDetected) Coronavirus HKU1 (PCR) (NotDetected) Coronavirus 229E (PCR) (NotDetected) SARS-CoV-2 (PCR) (NotDetected) Coronavirus NL63 (PCR) (NotDetected) Human Metapneumovir PCR (NotDetected) Influenza Type A (PCR) (NotDetected) Influenza Type B (PCR) (NotDetected) M. pneumoniae (PCR) (NotDetected) Parainfluenza 1 (PCR) (NotDetected) Parainfluenza 2 (PCR) (NotDetected) Parainfluenza 3 (PCR) (NotDetected) Parainfluenza 4 (PCR) (NotDetected) RSV (PCR) (NotDetected) Entero/Rhino (PCR) (NotDetected) 03/25/23 03/25/23 03/26/23 Range/Units 18:07 20:18 00:02 WBC (4.8-10.8) K/ul RBC (4.70-6.10) M/uL Hgb (14.0-18.0) g/dl Hct (42.0-52.0) % MCV (80.0-100.0) fL MCH (25.0-34.0) pg MCHC (32.0-36.0) g/dL RDW Std Deviation (36.4-46.3) fL RDW Coeff of Nona (11.5-14.5) % Plt Count (130-400) K/uL MPV (9.4-12.4) fL Immature Gran % (Auto) % Neut % (Auto) % Lymph % (Auto) % [place] % (Auto) % Eos % (Auto) % Baso % (Auto) % Neut # (Auto) (1.40-6.50) K/uL Lymph # (Auto) (1.20-3.40) K/uL [place] # (Auto) (0.11-0.59) K/uL Eos # (Auto) (0.00-0.50) K/uL Baso # (Auto) (0.00-0.20) K/uL Immature Gran # (Auto) (0.01-0.20) K/uL Dohle Bodies Echinocytes VBG pH 7.39 (7.36-7.41) VBG pCO2 25 L (38-50) mmHg VBG pO2 54 mmHg VBG HCO3 15 mmol/L VBG O2 Saturation 87.3 % VBG Base Excess -8.1 mEq/L Sodium 138 (136-145) mmol/L Potassium 4.6 (3.5-5.1) mmol/L Chloride 109 H (98-107) mmol/L Carbon Dioxide 14 L (21-32) mmol/L Anion Gap 15 H (3-11) BUN 87 H (6-23) mg/dl Creatinine 3.33 H (0.6-1.4) mg/dl Est Cr Clr Drug Dosing 18.6 Est GFR ( Amer) 19.3 ml/min Est GFR (Non-Af Amer) 16.6 ml/min BUN/Creatinine Ratio 26.1 H (10-20) Glucose 100 H (70-99(Fasting)) mg/dl POC Glucose 134 H 79 (70-99) mg/dl Estimat Average Glucose mg/dl Hemoglobin A1c (4.5-5.6) % Lactate 2.7 H* (0.4-2.0) mmol/L Calcium 8.1 L (8.6-10.3) mg/dl Phosphorus (2.5-4.9) mg/dl Magnesium (1.7-2.4) mg/dl Total Bilirubin (0.2-1.0) mg/dl AST (13-39) U/L ALT (7-52) U/L Alkaline Phosphatase (34-104) U/L C-Reactive Protein (0-0.5) mg/dl Total Protein (6.0-8.3) gm/dl Albumin (3.4-5.0) gm/dl Globulin (2.5-4.0) gm/dl Albumin/Globulin Ratio (0.9-2) Lipase (11-82) U/L Procalcitonin (0-0.5) ng/ml Random Cortisol mcg/dl Urine Color Urine Appearance (Clear) Urine pH (4.5-7.5) Ur Specific [place] (1.000-1.030) Urine Protein (Negative) Urine Glucose (UA) (Negative) Urine Ketones (Negative) Urine Blood (Negative) Urine Nitrite (Negative) Urine Bilirubin (Negative) Urine Urobilinogen (Negative) Ur Leukocyte Esterase (Negative) Urine WBC (Auto) (0-5) /hpf Urine RBC (Auto) (0-4) /hpf U Hyaline Cast (Auto) (0-5) /lpf U Epithel Cells (Auto) (0-5) /lpf Urine Bacteria (Auto) (Negative) Nasal Screen MRSA (PCR) (Negative) Stl C. cayetanensis PCR (NotDetected) Stool Rotavirus A PCR (NotDetected) Stl Adenov F 40/41 PCR (NotDetected) Stool Astrovirus (PCR) (NotDetected) Stool Campylobacter PCR (NotDetected) Stl C. diff Tox B Gene (Neg) Stool Cryptosporidium PCR (NotDetected) Stl E.coli Shiga Tox PCR (NotDetected) Stl Enterotoxigenic E PCR (NotDetected) Stool EPEC (PCR) (NotDetected) Stool EAEC (PCR) (NotDetected) Stl E. histolytica PCR (NotDetected) Stool Giardia Lamblia PCR (NotDetected) Stool Salmonella PCR (NotDetected) Stool Sapovirus (PCR) (NotDetected) Stl P. shigelloides PCR (NotDetected) Stl Shigella/EIEC PCR (NotDetected) St Y.enterocolitica PCR (NotDetected) Stool Vibrio (PCR) (NotDetected) Stl Vibrio cholerae PCR (NotDetected) Stl Norovirus GI/GII PCR (NotDetected) Adenovirus (PCR) (NotDetected) B. pertussis DNA (PCR) (NotDetected) B.parapertussis DNA PCR (NotDetected) C. pneumoniae DNA (PCR) (NotDetected) Coronavirus OC43 (PCR) (NotDetected) Coronavirus HKU1 (PCR) (NotDetected) Coronavirus 229E (PCR) (NotDetected) SARS-CoV-2 (PCR) (NotDetected) Coronavirus NL63 (PCR) (NotDetected) Human Metapneumovir PCR (NotDetected) Influenza Type A (PCR) (NotDetected) Influenza Type B (PCR) (NotDetected) M. pneumoniae (PCR) (NotDetected) Parainfluenza 1 (PCR) (NotDetected) Parainfluenza 2 (PCR) (NotDetected) Parainfluenza 3 (PCR) (NotDetected) Parainfluenza 4 (PCR) (NotDetected) RSV (PCR) (NotDetected) Entero/Rhino (PCR) (NotDetected) 03/26/23 03/26/23 03/26/23 Range/Units 05:50 05:56 09:29 WBC 6.66 (4.8-10.8) K/ul RBC 2.59 L (4.70-6.10) M/uL Hgb 8.1 L (14.0-18.0) g/dl Hct 24.3 L (42.0-52.0) % MCV 93.8 (80.0-100.0) fL MCH 31.3 (25.0-34.0) pg MCHC 33.3 (32.0-36.0) g/dL RDW Std Deviation 49.4 H (36.4-46.3) fL RDW Coeff of Nona 14.3 (11.5-14.5) % Plt Count 100 L (130-400) K/uL MPV 11.6 (9.4-12.4) fL Immature Gran % (Auto) 1.2 % Neut % (Auto) 75.7 % Lymph % (Auto) 12.6 % [place] % (Auto) 9.5 % Eos % (Auto) 0.5 % Baso % (Auto) 0.5 % Neut # (Auto) 5.05 (1.40-6.50) K/uL Lymph # (Auto) 0.84 L (1.20-3.40) K/uL [place] # (Auto) 0.63 H (0.11-0.59) K/uL Eos # (Auto) 0.03 (0.00-0.50) K/uL Baso # (Auto) 0.03 (0.00-0.20) K/uL Immature Gran # (Auto) 0.08 (0.01-0.20) K/uL Dohle Bodies 2+ Echinocytes 2+ VBG pH (7.36-7.41) VBG pCO2 (38-50) mmHg VBG pO2 mmHg VBG HCO3 mmol/L VBG O2 Saturation % VBG Base Excess mEq/L Sodium 139 (136-145) mmol/L Potassium 3.8 (3.5-5.1) mmol/L Chloride 108 H (98-107) mmol/L Carbon Dioxide 18 L (21-32) mmol/L Anion Gap 13 H (3-11) BUN 88 H (6-23) mg/dl Creatinine 3.26 H (0.6-1.4) mg/dl Est Cr Clr Drug Dosing 18.9 Est GFR ( Amer) 19.8 ml/min Est GFR (Non-Af Amer) 17.1 ml/min BUN/Creatinine Ratio 27.0 H (10-20) Glucose 73 (70-99(Fasting)) mg/dl POC Glucose 75 (70-99) mg/dl Estimat Average Glucose mg/dl Hemoglobin A1c (4.5-5.6) % Lactate 1.6 (0.4-2.0) mmol/L Calcium 8.0 L (8.6-10.3) mg/dl Phosphorus 4.1 (2.5-4.9) mg/dl Magnesium 1.4 L (1.7-2.4) mg/dl Total Bilirubin (0.2-1.0) mg/dl AST (13-39) U/L ALT (7-52) U/L Alkaline Phosphatase (34-104) U/L C-Reactive Protein 22.29 H (0-0.5) mg/dl Total Protein (6.0-8.3) gm/dl Albumin 3.0 L (3.4-5.0) gm/dl Globulin (2.5-4.0) gm/dl Albumin/Globulin Ratio (0.9-2) Lipase (11-82) U/L Procalcitonin 59.42 H (0-0.5) ng/ml Random Cortisol mcg/dl Urine Color Urine Appearance (Clear) Urine pH (4.5-7.5) Ur Specific [place] (1.000-1.030) Urine Protein (Negative) Urine Glucose (UA) (Negative) Urine Ketones (Negative) Urine Blood (Negative) Urine Nitrite (Negative) Urine Bilirubin (Negative) Urine Urobilinogen (Negative) Ur Leukocyte Esterase (Negative) Urine WBC (Auto) (0-5) /hpf Urine RBC (Auto) (0-4) /hpf U Hyaline Cast (Auto) (0-5) /lpf U Epithel Cells (Auto) (0-5) /lpf Urine Bacteria (Auto) (Negative) Nasal Screen MRSA (PCR) (Negative) Stl C. cayetanensis PCR (NotDetected) Stool Rotavirus A PCR (NotDetected) Stl Adenov F 40/41 PCR (NotDetected) Stool Astrovirus (PCR) (NotDetected) Stool Campylobacter PCR (NotDetected) Stl C. diff Tox B Gene (Neg) Stool Cryptosporidium PCR (NotDetected) Stl E.coli Shiga Tox PCR (NotDetected) Stl Enterotoxigenic E PCR (NotDetected) Stool EPEC (PCR) (NotDetected) Stool EAEC (PCR) (NotDetected) Stl E. histolytica PCR (NotDetected) Stool Giardia Lamblia PCR (NotDetected) Stool Salmonella PCR (NotDetected) Stool Sapovirus (PCR) (NotDetected) Stl P. shigelloides PCR (NotDetected) Stl Shigella/EIEC PCR (NotDetected) St Y.enterocolitica PCR (NotDetected) Stool Vibrio (PCR) (NotDetected) Stl Vibrio cholerae PCR (NotDetected) Stl Norovirus GI/GII PCR (NotDetected) Adenovirus (PCR) (NotDetected) B. pertussis DNA (PCR) (NotDetected) B.parapertussis DNA PCR (NotDetected) C. pneumoniae DNA (PCR) (NotDetected) Coronavirus OC43 (PCR) (NotDetected) Coronavirus HKU1 (PCR) (NotDetected) Coronavirus 229E (PCR) (NotDetected) SARS-CoV-2 (PCR) (NotDetected) Coronavirus NL63 (PCR) (NotDetected) Human Metapneumovir PCR (NotDetected) Influenza Type A (PCR) (NotDetected) Influenza Type B (PCR) (NotDetected) M. pneumoniae (PCR) (NotDetected) Parainfluenza 1 (PCR) (NotDetected) Parainfluenza 2 (PCR) (NotDetected) Parainfluenza 3 (PCR) (NotDetected) Parainfluenza 4 (PCR) (NotDetected) RSV (PCR) (NotDetected) Entero/Rhino (PCR) (NotDetected) 03/26/23 Range/Units 14:06 WBC (4.8-10.8) K/ul RBC (4.70-6.10) M/uL Hgb (14.0-18.0) g/dl Hct (42.0-52.0) % MCV (80.0-100.0) fL MCH (25.0-34.0) pg MCHC (32.0-36.0) g/dL RDW Std Deviation (36.4-46.3) fL RDW Coeff of Nona (11.5-14.5) % Plt Count (130-400) K/uL MPV (9.4-12.4) fL Immature Gran % (Auto) % Neut % (Auto) % Lymph % (Auto) % [place] % (Auto) % Eos % (Auto) % Baso % (Auto) % Neut # (Auto) (1.40-6.50) K/uL Lymph # (Auto) (1.20-3.40) K/uL [place] # (Auto) (0.11-0.59) K/uL Eos # (Auto) (0.00-0.50) K/uL Baso # (Auto) (0.00-0.20) K/uL Immature Gran # (Auto) (0.01-0.20) K/uL Dohle Bodies Echinocytes VBG pH (7.36-7.41) VBG pCO2 (38-50) mmHg VBG pO2 mmHg VBG HCO3 mmol/L VBG O2 Saturation % VBG Base Excess mEq/L Sodium (136-145) mmol/L Potassium (3.5-5.1) mmol/L Chloride (98-107) mmol/L Carbon Dioxide (21-32) mmol/L Anion Gap (3-11) BUN (6-23) mg/dl Creatinine (0.6-1.4) mg/dl Est Cr Clr Drug Dosing Est GFR ( Amer) ml/min Est GFR (Non-Af Amer) ml/min BUN/Creatinine Ratio (10-20) Glucose (70-99(Fasting)) mg/dl POC Glucose 107 H (70-99) mg/dl Estimat Average Glucose mg/dl Hemoglobin A1c (4.5-5.6) % Lactate (0.4-2.0) mmol/L Calcium (8.6-10.3) mg/dl Phosphorus (2.5-4.9) mg/dl Magnesium (1.7-2.4) mg/dl Total Bilirubin (0.2-1.0) mg/dl AST (13-39) U/L ALT (7-52) U/L Alkaline Phosphatase (34-104) U/L C-Reactive Protein (0-0.5) mg/dl Total Protein (6.0-8.3) gm/dl Albumin (3.4-5.0) gm/dl Globulin (2.5-4.0) gm/dl Albumin/Globulin Ratio (0.9-2) Lipase (11-82) U/L Procalcitonin (0-0.5) ng/ml Random Cortisol mcg/dl Urine Color Urine Appearance (Clear) Urine pH (4.5-7.5) Ur Specific [place] (1.000-1.030) Urine Protein (Negative) Urine Glucose (UA) (Negative) Urine Ketones (Negative) Urine Blood (Negative) Urine Nitrite (Negative) Urine Bilirubin (Negative) Urine Urobilinogen (Negative) Ur Leukocyte Esterase (Negative) Urine WBC (Auto) (0-5) /hpf Urine RBC (Auto) (0-4) /hpf U Hyaline Cast (Auto) (0-5) /lpf U Epithel Cells (Auto) (0-5) /lpf Urine Bacteria (Auto) (Negative) Nasal Screen MRSA (PCR) (Negative) Stl C. cayetanensis PCR (NotDetected) Stool Rotavirus A PCR (NotDetected) Stl Adenov F 40/41 PCR (NotDetected) Stool Astrovirus (PCR) (NotDetected) Stool Campylobacter PCR (NotDetected) Stl C. diff Tox B Gene (Neg) Stool Cryptosporidium PCR (NotDetected) Stl E.coli Shiga Tox PCR (NotDetected) Stl Enterotoxigenic E PCR (NotDetected) Stool EPEC (PCR) (NotDetected) Stool EAEC (PCR) (NotDetected) Stl E. histolytica PCR (NotDetected) Stool Giardia Lamblia PCR (NotDetected) Stool Salmonella PCR (NotDetected) Stool Sapovirus (PCR) (NotDetected) Stl P. shigelloides PCR (NotDetected) Stl Shigella/EIEC PCR (NotDetected) St Y.enterocolitica PCR (NotDetected) Stool Vibrio (PCR) (NotDetected) Stl Vibrio cholerae PCR (NotDetected) Stl Norovirus GI/GII PCR (NotDetected) Adenovirus (PCR) (NotDetected) B. pertussis DNA (PCR) (NotDetected) B.parapertussis DNA PCR (NotDetected) C. pneumoniae DNA (PCR) (NotDetected) Coronavirus OC43 (PCR) (NotDetected) Coronavirus HKU1 (PCR) (NotDetected) Coronavirus 229E (PCR) (NotDetected) SARS-CoV-2 (PCR) (NotDetected) Coronavirus NL63 (PCR) (NotDetected) Human Metapneumovir PCR (NotDetected) Influenza Type A (PCR) (NotDetected) Influenza Type B (PCR) (NotDetected) M. pneumoniae (PCR) (NotDetected) Parainfluenza 1 (PCR) (NotDetected) Parainfluenza 2 (PCR) (NotDetected) Parainfluenza 3 (PCR) (NotDetected) Parainfluenza 4 (PCR) (NotDetected) RSV (PCR) (NotDetected) Entero/Rhino (PCR) (NotDetected)
[2023-03-27] MEDS: LACTATED RINGER'S 1,000 ML IV SCH ×3 (00:14→22:21)
[2023-03-27] MEDS: INSULIN ASPART PER UNIT CHARGE SC SCH ×4 (00:15→19:08)
[2023-03-27 05:45] LABS: Albumin Level 2.9 gm/dl (3.4-5.0); BUN Creatinine Ratio 27.9 (10-20); Calcium 7.9 mg/dl (8.6-10.3); Creatinine Clr Calc Pharmacy 20.5 ml/min; Est GFR (African American) 21.8 ml/min; Est GFR (Non-African American) 18.8 ml/min; Ferritin 466.6 ng/ml (8-388); Magnesium 1.8 mg/dl (1.7-2.4); Phosphorus 3.4 mg/dl (2.5-4.9); Potassium 2.7 mmol/L (3.5-5.1)
[2023-03-27 05:51] LABS: Folate (Folic Acid),Ser orPlas 14.75 ng/ml (>5.38)
[2023-03-27 05:52] LABS: Vitamin B12 > 1500 pg/ml (180-914)
[2023-03-27 06:29] LABS: Basophils # (auto) 0.02 K/uL (0.00-0.20); Basophils % (auto) 0.2 %; Dohle Bodies 1+; Eosinophils # (auto) 0.21 K/uL (0.00-0.50); Eosinophils % (auto) 1.9 %; Hematocrit (blood only) 24.1 % (42.0-52.0); Hemoglobin 8.4 g/dl (14.0-18.0); Immature Granulocytes # (auto) 0.13 K/uL (0.01-0.20); Immature Granulocytes % (auto) 1.2 %; Lymphocytes # (auto) 1.15 K/uL (1.20-3.40); Lymphocytes % (auto) 10.2 %; Mean Corpuscular Hemoglobin 31.8 pg (25.0-34.0); Mean Corpuscular Hgb Conc 34.9 g/dL (32.0-36.0); Mean Corpuscular Volume 91.3 fL (80.0-100.0); Mean Platelet Volume 12.4 fL (9.4-12.4); Monocytes # (auto) 0.76 K/uL (0.11-0.59); Monocytes % (auto) 6.7 %; Neutrophils # (auto) 8.99 K/uL (1.40-6.50); Neutrophils % (auto) 79.8 %; Platelet Count 117 K/uL (130-400); RDW Standard Deviation 46.9 fL (36.4-46.3); Red Blood Count 2.64 M/uL (4.70-6.10); Reticulocyte % 1.2 % (0.5-2.0); Reticulocytes # 0.03 10^6/uL (0.02-0.10); White Blood Count 11.26 K/ul (4.8-10.8)
[2023-03-27] MEDS ORDERED: MAGNESIUM SULFATE / D5W 1 GM/100 ML BAG IV ONE (08:37)
[2023-03-27] MEDS: PIPERACILLIN/TAZOBACTAM 4.5 GM in DEXTROSE 5% MINI-B 100 ML IV SCH ×2 (09:29→17:57)
[2023-03-27] MEDS: HEPARIN SOD 5,000 UNIT/0.5 ML VIAL SQ SCH ×2 (09:34→20:20)
[2023-03-27] MEDS: allopurinoL 300 MG TAB PO SCH (09:34)
[2023-03-27] MEDS: POTASSIUM CHLORIDE / WTR 10 MEQ/100 ML PLCT IV SCH ×8 (09:35→22:18)
--- NOTE | 2023-03-27 10:53 | Hospitalist Progress Note ---
Date of Service March 27, 2023 Assessment & Plan (1) Severe sepsis: Plan: suspected source - intra-abdominal ?ischemic although he has chronic Cece's he has severe abd distension with pain (generalized) along with foul-smelling stool and report of diarrhea at [facility] a/p with liquid stool throughout the colon stool Biofire negative c diff x 2 both negative respiratory Biofire negative cxr without obvious pneumonia u/a mildly dirty but no bacteria or WBCs on microscopy - this was not sent for culture and urine samples are thrown away at 24 hours, repeat sample sent 03/27 Blood cultures negative at 48 hours Continue zosyn empirically to cover for ischemic colitis, would value the procalcitonin level in guidance of determining cessation of antibiotics and will repeat this tomorrow. Continue IV fluids with lactated Ringer's while oral intake remains negligible (2) Elevated lactic acid level: Plan: Anion gap mostly closed with lactate level resolved, therefore suspect his anion gap was mostly due to elevated lactate from hypotension causing poor organ perfusion +/- ischemic colitis. (3) Pseudo-obstruction of colon: Plan: chronic Winston's previously seen by both GI & gen surg for this on prior admissions cont broad-spectrum IV abx (zosyn) Appreciate GI and surgical consultations - advance diet per surgery recommendations (4) Acute diarrhea: Plan: foul-smelling stool stool biofire negative c diff x 2 both negative Suspected intestinal/colonic ischemia given his severe pain and tenderness on abdominal exam by prior provider - currently abdomen is distended but nontender Monitor closely for worsening gastrointestinal symptoms at white blood count as diet is increased given concern for ischemia. Mesenteric ultrasound today performed given continued elevated creatinine however was essentially nonrevealing given overlying bowel gas. Could consider CT angiogram although given he is not a surgical candidate and would need to give intravenous contrast doubtful benefit would not outweigh any risk. (5) Acute kidney injury superimposed on chronic kidney disease: Plan: baseline Cr ~1.4 (02/2023) now > 3 likely sepsis associated ATN Suspect improvement as long as he continues to urinate over the next 2 to 3 days given he had significant hypotensive for the majority of 03/24-. Continue IV fluids as above. (6) Hypertension: Plan: Restart metoprolol succinate today at lower dose of 50 mg daily, uptitrate as better to his 200 mg dose as blood pressure and heart rate allow (7) BPH with obstruction/lower urinary tract symptoms: Plan: hold flomax cont fung (8) Acute metabolic encephalopathy: Plan: 2nd to severe sepsis, acidosis, etc supportive care Renewed soft mitts as continues to remain at risk of pulling out his IVs (9) Thrombocytopenia: Plan: likely due to sepsis Continue to monitor -will now improving (10) Normocytic anemia: Plan: B12 > 1500 Folate 14.75 Transferrin saturation 27%, ferritin 466 (in setting of acute illness) Reticulocyte count normal Appears to stabilized, continue to monitor daily (11) Hypertrophic cardiomyopathy: Plan: follows with [facility] [place] [facility] pre-load dependent state NO evidence of any decompensated; he is massively volume depleted hold cardiac meds IV fluids (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 HbA1c 6.8 03/25 (14) Status post placement of cardiac pacemaker: Plan: placed for history of heart block Plan VTE prophylaxis - heparin 5000 units SQ BID Diet - clear liquids started 03/26, advance per surgical recommendations Disposition - continued admission to PCU Updated brother over the phone 03/27, prognosis remains guarded at this time however appears much more stable than on admission. Admission and Anticipated Discharge Date Admission Date: March 25, 2023 Subjective No complaints from the patient. He denies any abdominal pain. No shortness of breath or chest pain. Tolerating clear liquid diet. No nausea or vomiting. X 3 bowel movements overnight. Review of Systems Review of Systems: All systems reviewed & are unremarkable except as noted in HPI & below Physical Exam Constitutional: well developed; + not well nourished and no acute distress Eyes: + anicteric sclerae; normal pupil size Respiratory: normal respiratory effort, lungs clear to auscultation Cardiovascular: RRR, no murmur, no edema Gastrointestinal (Abdomen): Inspection/Auscultation: abdomen normal to inspection and + abdomen distended Percussion/Palpation: abdomen soft; abdomen nontender, no guarding and abdomen not rigid Skin: no rashes, warm and dry Psychiatric: Orientation: alert and oriented to person; + not oriented to place and + not oriented to time Results & Data Results & Data Vital Signs (Past 12 Hours) Vital Signs Temp Pulse Resp BP BP Pulse Ox Pulse Ox 12/25/23 08:57 36.3 C L 77 21 138/71 98 03/27/23 04:00 99 03/27/23 03:23 37.3 C 80 20 126/70 99 03/26/23 23:33 36.8 C 81 20 153/60 H 99 O2 Del Method O2 Del Method 03/27/23 08:57 Room Air 03/27/23 04:00 Room Air 03/27/23 03:23 Room Air 03/26/23 23:33 Room Air PG Care Time/CCT Total # of Minutes Spent Total Time Spent with Patient: Total time spent is greater than 50% in coordination of care (as documented) at patient's floor/unit and/or counseling patient: Coding Level of Care Code 41060 SUB INP/OBS CARE 3/50MIN Diagnoses Severe sepsis A41.9; R65.20 Elevated lactic acid level R79.89 Pseudo-obstruction of colon K59.81 Acute diarrhea R19.7 Acute kidney injury superimposed on chronic kidney disease N17.9; N18.9 Hypertension, unspecified type I10 Hypertension type: unspecified BPH with obstruction/lower urinary tract symptoms N40.1; N13.8 Acute metabolic encephalopathy G93.41 Thrombocytopenia D69.6 Normocytic anemia D64.9 Hypertrophic cardiomyopathy I42.2 Cece syndrome K59.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
--- NOTE | 2023-03-27 11:43 | Ultrasound Report ---
US duplex mesenteric CLINICAL HISTORY: Suspected ischemic colitis ?high grade stenosis TECHNIQUE: Real-time grayscale, duplex, and Doppler images were obtained of the abdomen. Comparison: None available at the time of this dictation. FINDINGS/IMPRESSION: Highly limited exam due to overlying bowel gas and possibly body habitus. Aorta and other vessels cannot be visualized. ACT 112: Negative or not required by law. Electronically signed by: Adonay Elizabeth M.D. 03/27/2023 11:41 AM
[2023-03-27] MEDS: METOPROLOL SUCC 50MG EXT REL TAB PO SCH (12:26)
[2023-03-27] MEDS: PANTOprazole 40 MG in SYRINGE 0 ML IV SCH (12:26)
--- NOTE | 2023-03-27 12:48 | Surgery Progress Note ---
Date of Service March 27, 2023 Assessment & Plan (1) Pseudo-obstruction of colon: Plan: Assessment: Patient is a 78 years old gentleman with significant PMH- hypertrophic cardiomyopathy, acute kidney injury, left ventricular hypertrophy, recurrent kidney disease stage III, pseudo obstruction of the colon, Cece syndrome, type 2 diabetes, TIA, hypertension, BPH, memory impairment, hyperparathyroidism, and cardiomyopathy. Patient presented to ED with 2-day history fever, diarrhea, and low prepped pressure. Patient said his stomach hurt for last 2 days. T 38.5. Patient had diarrhea last 2 days with no bloody stool. Plan, no indication for urgent surgery now. conservative treatment, resuscitation with IV fluid, NPO, NG tube, consult GI to R/O ischemic bowel. repeat labs 6 hours based pt's co-morbilities, the prognosis is poor . D/W pt attending. will F/U. 03/26/2023 2:18 PM doing better, passed some liquid stool, clear diet today, continue conservative treatment will F/U 05/28/2022 12:47 PM stable, passed BM, no fever. may try full liquid diet today, continue conservative treatment will F/U Admission and Anticipated Discharge Date Admission Date: March 25, 2023 Subjective pt is stable, passed BM. no bloody stool, no fever. Review of Systems Constitutional: Memory impairment Eyes: as per Subjective / HPI Respiratory: as per Subjective / HPI Cardiovascular: Additional Comments: HTN, hypertrophic obstructive cardiomyopathy, left ventricular outflow tract obstruction, Gastrointestinal: Pseudo colon obstruction, Ogilie syndrome Genitourinary: + problem reported (BPH, chronic kidney disease stage III, acute renal injury) Neurologic: Memory impairment Endocrine: hyperparathyroidism Hematologic / Lymphatic: anemia Physical Exam Eyes: PERRL, conjunctivae normal, anicteric sclerae Respiratory: normal respiratory effort, lungs clear to auscultation Cardiovascular: Rate/Rhythm: regular rate Gastrointestinal (Abdomen): soft, no significant distend, BS +. no tenderness. Neurologic: patellar DTR's 2+ bilat, sensation intact Results & Data Vital Signs (Past 12 Hours) Vital Signs Temp Pulse Resp BP BP Pulse Ox Pulse Ox 03/27/23 08:57 36.3 C L 77 21 138/71 98 03/27/23 04:00 99 03/27/23 03:23 37.3 C 80 20 126/70 99 O2 Del Method O2 Del Method 03/27/23 08:57 Room Air 03/27/23 04:00 Room Air 03/27/23 03:23 Room Air Laboratory Results Lab Results 03/24/23 03/24/23 03/24/23 Range/Units 20:19 20:32 21:11 WBC 3.68 L (4.8-10.8) K/ul RBC 3.73 L (4.70-6.10) M/uL Hgb 11.7 L (14.0-18.0) g/dl Hct 35.3 L (42.0-52.0) % MCV 94.6 (80.0-100.0) fL MCH 31.4 (25.0-34.0) pg MCHC 33.1 (32.0-36.0) g/dL RDW Std Deviation 49.3 H (36.4-46.3) fL RDW Coeff of Nona 14.3 (11.5-14.5) % Plt Count 153 (130-400) K/uL MPV 11.5 (9.4-12.4) fL Immature Gran % (Auto) 0.5 % Neut % (Auto) 66.8 % Lymph % (Auto) 12.8 % [place] % (Auto) 19.6 % Eos % (Auto) 0.0 % Baso % (Auto) 0.3 % Reticulocyte % (Auto) (0.5-2.0) % Neut # (Auto) 2.46 (1.40-6.50) K/uL Lymph # (Auto) 0.47 L (1.20-3.40) K/uL [place] # (Auto) 0.72 H (0.11-0.59) K/uL Eos # (Auto) 0.00 (0.00-0.50) K/uL Baso # (Auto) 0.01 (0.00-0.20) K/uL Reticulocyte # (0.02-0.10) 10^6/uL Immature Gran # (Auto) 0.02 (0.01-0.20) K/uL Dohle Bodies Echinocytes 1+ VBG pH (7.36-7.41) VBG pCO2 (38-50) mmHg VBG pO2 mmHg VBG HCO3 mmol/L VBG O2 Saturation % VBG Base Excess mEq/L Sodium 139 (136-145) mmol/L Potassium 4.8 (3.5-5.1) mmol/L Chloride 107 (98-107) mmol/L Carbon Dioxide 16 L (21-32) mmol/L Anion Gap 16 H (3-11) BUN 72 H (6-23) mg/dl Creatinine 2.94 H (0.6-1.4) mg/dl Est Cr Clr Drug Dosing Not Reportable Est GFR ( Amer) 22.4 ml/min Est GFR (Non-Af Amer) 19.3 ml/min BUN/Creatinine Ratio 24.5 H (10-20) Glucose 129 H (70-99(Fasting)) mg/dl POC Glucose (70-99) mg/dl Estimat Average Glucose mg/dl Hemoglobin A1c (4.5-5.6) % Lactate (0.4-2.0) mmol/L Calcium 9.2 (8.6-10.3) mg/dl Phosphorus (2.5-4.9) mg/dl Magnesium (1.7-2.4) mg/dl Iron (35-175) mcg/dl TIBC (250-450) mcg/dl Unsaturated IBC (155-355) mcg/dl Transferrin % Sat (20-50) % Ferritin (8-388) ng/ml Total Bilirubin 1.5 H (0.2-1.0) mg/dl AST 27 (13-39) U/L ALT 9 (7-52) U/L Alkaline Phosphatase 59 (34-104) U/L Lactate Dehydrogenase (86-244) U/L C-Reactive Protein (0-0.5) mg/dl Total Protein 6.5 (6.0-8.3) gm/dl Albumin 3.5 (3.4-5.0) gm/dl Globulin 3.0 (2.5-4.0) gm/dl Albumin/Globulin Ratio 1.2 (0.9-2) Lipase 13 (11-82) U/L Vitamin B12 (180-914) pg/ml Folate (>5.38) ng/ml Procalcitonin (0-0.5) ng/ml Random Cortisol mcg/dl Urine Color Dark Yellow Urine Appearance Clear (Clear) Urine pH 5.0 (4.5-7.5) Ur Specific [place] 1.021 (1.000-1.030) Urine Protein Trace H (Negative) Urine Glucose (UA) Negative (Negative) Urine Ketones Trace H (Negative) Urine Blood Negative (Negative) Urine Nitrite Positive A (Negative) Urine Bilirubin 2+ H (Negative) Urine Urobilinogen Negative (Negative) Ur Leukocyte Esterase Trace H (Negative) Urine WBC (Auto) 1-5 (0-5) /hpf Urine RBC (Auto) 0-4 (0-4) /hpf U Hyaline Cast (Auto) 1-5 (0-5) /lpf U Epithel Cells (Auto) 0-5 (0-5) /lpf Urine Bacteria (Auto) Negative (Negative) Nasal Screen MRSA (PCR) (Negative) Stool Occult Bld Scrn (Negative) Stl C. cayetanensis PCR (NotDetected) Stool Rotavirus A PCR (NotDetected) Stl Adenov F 40/41 PCR (NotDetected) Stool Astrovirus (PCR) (NotDetected) Stool Campylobacter PCR (NotDetected) Stl C. diff Tox B Gene (Neg) Stool Cryptosporidium PCR (NotDetected) Stl E.coli Shiga Tox PCR (NotDetected) Stl Enterotoxigenic E PCR (NotDetected) Stool EPEC (PCR) (NotDetected) Stool EAEC (PCR) (NotDetected) Stl E. histolytica PCR (NotDetected) Stool Giardia Lamblia PCR (NotDetected) Stool Salmonella PCR (NotDetected) Stool Sapovirus (PCR) (NotDetected) Stl P. shigelloides PCR (NotDetected) Stl Shigella/EIEC PCR (NotDetected) St Y.enterocolitica PCR (NotDetected) Stool Vibrio (PCR) (NotDetected) Stl Vibrio cholerae PCR (NotDetected) Stl Norovirus GI/GII PCR (NotDetected) Adenovirus (PCR) Not Detected (NotDetected) B. pertussis DNA (PCR) Not Detected (NotDetected) B.parapertussis DNA PCR Not Detected (NotDetected) C. pneumoniae DNA (PCR) Not Detected (NotDetected) Coronavirus OC43 (PCR) Not Detected (NotDetected) Coronavirus HKU1 (PCR) Not Detected (NotDetected) Coronavirus 229E (PCR) Not Detected (NotDetected) SARS-CoV-2 (PCR) Not Detected (NotDetected) Coronavirus NL63 (PCR) Not Detected (NotDetected) Human Metapneumovir PCR Not Detected (NotDetected) Influenza Type A (PCR) Not Detected (NotDetected) Influenza Type B (PCR) Not Detected (NotDetected) M. pneumoniae (PCR) Not Detected (NotDetected) Parainfluenza 1 (PCR) Not Detected (NotDetected) Parainfluenza 2 (PCR) Not Detected (NotDetected) Parainfluenza 3 (PCR) Not Detected (NotDetected) Parainfluenza 4 (PCR) Not Detected (NotDetected) RSV (PCR) Not Detected (NotDetected) Entero/Rhino (PCR) Not Detected (NotDetected) 03/24/23 03/25/23 03/25/23 Range/Units 22:40 00:46 04:35 WBC 3.73 L (4.8-10.8) K/ul RBC 2.97 L (4.70-6.10) M/uL Hgb 9.4 L (14.0-18.0) g/dl Hct 28.9 L (42.0-52.0) % MCV 97.3 (80.0-100.0) fL MCH 31.6 (25.0-34.0) pg MCHC 32.5 (32.0-36.0) g/dL RDW Std Deviation 50.8 H (36.4-46.3) fL RDW Coeff of Nona 14.5 (11.5-14.5) % Plt Count 121 L (130-400) K/uL MPV 11.2 (9.4-12.4) fL Immature Gran % (Auto) 0.5 % Neut % (Auto) 67.0 % Lymph % (Auto) 12.9 % [place] % (Auto) 19.3 % Eos % (Auto) 0.0 % Baso % (Auto) 0.3 % Reticulocyte % (Auto) (0.5-2.0) % Neut # (Auto) 2.50 (1.40-6.50) K/uL Lymph # (Auto) 0.48 L (1.20-3.40) K/uL [place] # (Auto) 0.72 H (0.11-0.59) K/uL Eos # (Auto) 0.00 (0.00-0.50) K/uL Baso # (Auto) 0.01 (0.00-0.20) K/uL Reticulocyte # (0.02-0.10) 10^6/uL Immature Gran # (Auto) 0.02 (0.01-0.20) K/uL Dohle Bodies 1+ Echinocytes 1+ VBG pH (7.36-7.41) VBG pCO2 (38-50) mmHg VBG pO2 mmHg VBG HCO3 mmol/L VBG O2 Saturation % VBG Base Excess mEq/L Sodium 140 (136-145) mmol/L Potassium 5.2 H (3.5-5.1) mmol/L Chloride 111 H (98-107) mmol/L Carbon Dioxide 12 L (21-32) mmol/L Anion Gap 17 H (3-11) BUN 74 H (6-23) mg/dl Creatinine 3.21 H (0.6-1.4) mg/dl Est Cr Clr Drug Dosing Not Reportable Est GFR ( Amer) 20.2 ml/min Est GFR (Non-Af Amer) 17.4 ml/min BUN/Creatinine Ratio 23.1 H (10-20) Glucose 156 H (70-99(Fasting)) mg/dl POC Glucose (70-99) mg/dl Estimat Average Glucose 148 mg/dl Hemoglobin A1c 6.8 H (4.5-5.6) % Lactate 5.9 H* 7.5 H* (0.4-2.0) mmol/L Calcium 8.0 L (8.6-10.3) mg/dl Phosphorus 4.5 (2.5-4.9) mg/dl Magnesium (1.7-2.4) mg/dl Iron (35-175) mcg/dl TIBC (250-450) mcg/dl Unsaturated IBC (155-355) mcg/dl Transferrin % Sat (20-50) % Ferritin (8-388) ng/ml Total Bilirubin (0.2-1.0) mg/dl AST (13-39) U/L ALT (7-52) U/L Alkaline Phosphatase (34-104) U/L Lactate Dehydrogenase (86-244) U/L C-Reactive Protein (0-0.5) mg/dl Total Protein (6.0-8.3) gm/dl Albumin 3.2 L (3.4-5.0) gm/dl Globulin (2.5-4.0) gm/dl Albumin/Globulin Ratio (0.9-2) Lipase (11-82) U/L Vitamin B12 (180-914) pg/ml Folate (>5.38) ng/ml Procalcitonin (0-0.5) ng/ml Random Cortisol mcg/dl Urine Color Urine Appearance (Clear) Urine pH (4.5-7.5) Ur Specific [place] (1.000-1.030) Urine Protein (Negative) Urine Glucose (UA) (Negative) Urine Ketones (Negative) Urine Blood (Negative) Urine Nitrite (Negative) Urine Bilirubin (Negative) Urine Urobilinogen (Negative) Ur Leukocyte Esterase (Negative) Urine WBC (Auto) (0-5) /hpf Urine RBC (Auto) (0-4) /hpf U Hyaline Cast (Auto) (0-5) /lpf U Epithel Cells (Auto) (0-5) /lpf Urine Bacteria (Auto) (Negative) Nasal Screen MRSA (PCR) Negative (Negative) Stool Occult Bld Scrn (Negative) Stl C. cayetanensis PCR (NotDetected) Stool Rotavirus A PCR (NotDetected) Stl Adenov F 40/41 PCR (NotDetected) Stool Astrovirus (PCR) (NotDetected) Stool Campylobacter PCR (NotDetected) Stl C. diff Tox B Gene (Neg) Stool Cryptosporidium PCR (NotDetected) Stl E.coli Shiga Tox PCR (NotDetected) Stl Enterotoxigenic E PCR (NotDetected) Stool EPEC (PCR) (NotDetected) Stool EAEC (PCR) (NotDetected) Stl E. histolytica PCR (NotDetected) Stool Giardia Lamblia PCR (NotDetected) Stool Salmonella PCR (NotDetected) Stool Sapovirus (PCR) (NotDetected) Stl P. shigelloides PCR (NotDetected) Stl Shigella/EIEC PCR (NotDetected) St Y.enterocolitica PCR (NotDetected) Stool Vibrio (PCR) (NotDetected) Stl Vibrio cholerae PCR (NotDetected) Stl Norovirus GI/GII PCR (NotDetected) Adenovirus (PCR) (NotDetected) B. pertussis DNA (PCR) (NotDetected) B.parapertussis DNA PCR (NotDetected) C. pneumoniae DNA (PCR) (NotDetected) Coronavirus OC43 (PCR) (NotDetected) Coronavirus HKU1 (PCR) (NotDetected) Coronavirus 229E (PCR) (NotDetected) SARS-CoV-2 (PCR) (NotDetected) Coronavirus NL63 (PCR) (NotDetected) Human Metapneumovir PCR (NotDetected) Influenza Type A (PCR) (NotDetected) Influenza Type B (PCR) (NotDetected) M. pneumoniae (PCR) (NotDetected) Parainfluenza 1 (PCR) (NotDetected) Parainfluenza 2 (PCR) (NotDetected) Parainfluenza 3 (PCR) (NotDetected) Parainfluenza 4 (PCR) (NotDetected) RSV (PCR) (NotDetected) Entero/Rhino (PCR) (NotDetected) 03/25/23 03/25/23 03/25/23 Range/Units 05:00 05:58 08:47 WBC (4.8-10.8) K/ul RBC (4.70-6.10) M/uL Hgb (14.0-18.0) g/dl Hct (42.0-52.0) % MCV (80.0-100.0) fL MCH (25.0-34.0) pg MCHC (32.0-36.0) g/dL RDW Std Deviation (36.4-46.3) fL RDW Coeff of Nona (11.5-14.5) % Plt Count (130-400) K/uL MPV (9.4-12.4) fL Immature Gran % (Auto) % Neut % (Auto) % Lymph % (Auto) % [place] % (Auto) % Eos % (Auto) % Baso % (Auto) % Reticulocyte % (Auto) (0.5-2.0) % Neut # (Auto) (1.40-6.50) K/uL Lymph # (Auto) (1.20-3.40) K/uL [place] # (Auto) (0.11-0.59) K/uL Eos # (Auto) (0.00-0.50) K/uL Baso # (Auto) (0.00-0.20) K/uL Reticulocyte # (0.02-0.10) 10^6/uL Immature Gran # (Auto) (0.01-0.20) K/uL Dohle Bodies Echinocytes VBG pH 7.31 L (7.36-7.41) VBG pCO2 25 L (38-50) mmHg VBG pO2 53 mmHg VBG HCO3 13 mmol/L VBG O2 Saturation 85.1 % VBG Base Excess -11.9 mEq/L Sodium 140 (136-145) mmol/L Potassium 5.1 (3.5-5.1) mmol/L Chloride 111 H (98-107) mmol/L Carbon Dioxide 13 L (21-32) mmol/L Anion Gap 16 H (3-11) BUN 76 H (6-23) mg/dl Creatinine 3.11 H (0.6-1.4) mg/dl Est Cr Clr Drug Dosing 19.9 Est GFR ( Amer) 21.0 ml/min Est GFR (Non-Af Amer) 18.1 ml/min BUN/Creatinine Ratio 24.4 H (10-20) Glucose 156 H (70-99(Fasting)) mg/dl POC Glucose 148 H (70-99) mg/dl Estimat Average Glucose mg/dl Hemoglobin A1c (4.5-5.6) % Lactate 4.5 H* (0.4-2.0) mmol/L Calcium 8.3 L (8.6-10.3) mg/dl Phosphorus (2.5-4.9) mg/dl Magnesium (1.7-2.4) mg/dl Iron (35-175) mcg/dl TIBC (250-450) mcg/dl Unsaturated IBC (155-355) mcg/dl Transferrin % Sat (20-50) % Ferritin (8-388) ng/ml Total Bilirubin 1.4 H (0.2-1.0) mg/dl AST 30 (13-39) U/L ALT 9 (7-52) U/L Alkaline Phosphatase 37 (34-104) U/L Lactate Dehydrogenase (86-244) U/L C-Reactive Protein (0-0.5) mg/dl Total Protein 6.1 (6.0-8.3) gm/dl Albumin 3.4 (3.4-5.0) gm/dl Globulin 2.7 (2.5-4.0) gm/dl Albumin/Globulin Ratio 1.3 (0.9-2) Lipase (11-82) U/L Vitamin B12 (180-914) pg/ml Folate (>5.38) ng/ml Procalcitonin (0-0.5) ng/ml Random Cortisol > 60.00 mcg/dl Urine Color Urine Appearance (Clear) Urine pH (4.5-7.5) Ur Specific [place] (1.000-1.030) Urine Protein (Negative) Urine Glucose (UA) (Negative) Urine Ketones (Negative) Urine Blood (Negative) Urine Nitrite (Negative) Urine Bilirubin (Negative) Urine Urobilinogen (Negative) Ur Leukocyte Esterase (Negative) Urine WBC (Auto) (0-5) /hpf Urine RBC (Auto) (0-4) /hpf U Hyaline Cast (Auto) (0-5) /lpf U Epithel Cells (Auto) (0-5) /lpf Urine Bacteria (Auto) (Negative) Nasal Screen MRSA (PCR) (Negative) Stool Occult Bld Scrn (Negative) Stl C. cayetanensis PCR Not Detected (NotDetected) Stool Rotavirus A PCR Not Detected (NotDetected) Stl Adenov F 40/41 PCR Not Detected (NotDetected) Stool Astrovirus (PCR) Not Detected (NotDetected) Stool Campylobacter PCR Not Detected (NotDetected) Stl C. diff Tox B Gene Negative Cdiff Gene (Neg) Stool Cryptosporidium PCR Not Detected (NotDetected) Stl E.coli Shiga Tox PCR Not Detected (NotDetected) Stl Enterotoxigenic E PCR Not Detected (NotDetected) Stool EPEC (PCR) Not Detected (NotDetected) Stool EAEC (PCR) Not Detected (NotDetected) Stl E. histolytica PCR Not Detected (NotDetected) Stool Giardia Lamblia PCR Not Detected (NotDetected) Stool Salmonella PCR Not Detected (NotDetected) Stool Sapovirus (PCR) Not Detected (NotDetected) Stl P. shigelloides PCR Not Detected (NotDetected) Stl Shigella/EIEC PCR Not Detected (NotDetected) St Y.enterocolitica PCR Not Detected (NotDetected) Stool Vibrio (PCR) Not Detected (NotDetected) Stl Vibrio cholerae PCR Not Detected (NotDetected) Stl Norovirus GI/GII PCR Not Detected (NotDetected) Adenovirus (PCR) (NotDetected) B. pertussis DNA (PCR) (NotDetected) B.parapertussis DNA PCR (NotDetected) C. pneumoniae DNA (PCR) (NotDetected) Coronavirus OC43 (PCR) (NotDetected) Coronavirus HKU1 (PCR) (NotDetected) Coronavirus 229E (PCR) (NotDetected) SARS-CoV-2 (PCR) (NotDetected) Coronavirus NL63 (PCR) (NotDetected) Human Metapneumovir PCR (NotDetected) Influenza Type A (PCR) (NotDetected) Influenza Type B (PCR) (NotDetected) M. pneumoniae (PCR) (NotDetected) Parainfluenza 1 (PCR) (NotDetected) Parainfluenza 2 (PCR) (NotDetected) Parainfluenza 3 (PCR) (NotDetected) Parainfluenza 4 (PCR) (NotDetected) RSV (PCR) (NotDetected) Entero/Rhino (PCR) (NotDetected) 03/25/23 03/25/23 03/25/23 Range/Units 09:09 12:28 13:02 WBC (4.8-10.8) K/ul RBC (4.70-6.10) M/uL Hgb (14.0-18.0) g/dl Hct (42.0-52.0) % MCV (80.0-100.0) fL MCH (25.0-34.0) pg MCHC (32.0-36.0) g/dL RDW Std Deviation (36.4-46.3) fL RDW Coeff of Nona (11.5-14.5) % Plt Count (130-400) K/uL MPV (9.4-12.4) fL Immature Gran % (Auto) % Neut % (Auto) % Lymph % (Auto) % [place] % (Auto) % Eos % (Auto) % Baso % (Auto) % Reticulocyte % (Auto) (0.5-2.0) % Neut # (Auto) (1.40-6.50) K/uL Lymph # (Auto) (1.20-3.40) K/uL [place] # (Auto) (0.11-0.59) K/uL Eos # (Auto) (0.00-0.50) K/uL Baso # (Auto) (0.00-0.20) K/uL Reticulocyte # (0.02-0.10) 10^6/uL Immature Gran # (Auto) (0.01-0.20) K/uL Dohle Bodies Echinocytes VBG pH 7.27 L (7.36-7.41) VBG pCO2 25 L (38-50) mmHg VBG pO2 39 mmHg VBG HCO3 12 mmol/L VBG O2 Saturation 71.7 % VBG Base Excess -13.6 mEq/L Sodium (136-145) mmol/L Potassium (3.5-5.1) mmol/L Chloride (98-107) mmol/L Carbon Dioxide (21-32) mmol/L Anion Gap (3-11) BUN (6-23) mg/dl Creatinine (0.6-1.4) mg/dl Est Cr Clr Drug Dosing Est GFR ( Amer) ml/min Est GFR (Non-Af Amer) ml/min BUN/Creatinine Ratio (10-20) Glucose (70-99(Fasting)) mg/dl POC Glucose 190 H (70-99) mg/dl Estimat Average Glucose mg/dl Hemoglobin A1c (4.5-5.6) % Lactate 4.5 H* (0.4-2.0) mmol/L Calcium (8.6-10.3) mg/dl Phosphorus (2.5-4.9) mg/dl Magnesium (1.7-2.4) mg/dl Iron (35-175) mcg/dl TIBC (250-450) mcg/dl Unsaturated IBC (155-355) mcg/dl Transferrin % Sat (20-50) % Ferritin (8-388) ng/ml Total Bilirubin (0.2-1.0) mg/dl AST (13-39) U/L ALT (7-52) U/L Alkaline Phosphatase (34-104) U/L Lactate Dehydrogenase (86-244) U/L C-Reactive Protein (0-0.5) mg/dl Total Protein (6.0-8.3) gm/dl Albumin (3.4-5.0) gm/dl Globulin (2.5-4.0) gm/dl Albumin/Globulin Ratio (0.9-2) Lipase (11-82) U/L Vitamin B12 (180-914) pg/ml Folate (>5.38) ng/ml Procalcitonin (0-0.5) ng/ml Random Cortisol mcg/dl Urine Color Urine Appearance (Clear) Urine pH (4.5-7.5) Ur Specific [place] (1.000-1.030) Urine Protein (Negative) Urine Glucose (UA) (Negative) Urine Ketones (Negative) Urine Blood (Negative) Urine Nitrite (Negative) Urine Bilirubin (Negative) Urine Urobilinogen (Negative) Ur Leukocyte Esterase (Negative) Urine WBC (Auto) (0-5) /hpf Urine RBC (Auto) (0-4) /hpf U Hyaline Cast (Auto) (0-5) /lpf U Epithel Cells (Auto) (0-5) /lpf Urine Bacteria (Auto) (Negative) Nasal Screen MRSA (PCR) (Negative) Stool Occult Bld Scrn (Negative) Stl C. cayetanensis PCR (NotDetected) Stool Rotavirus A PCR (NotDetected) Stl Adenov F 40/41 PCR (NotDetected) Stool Astrovirus (PCR) (NotDetected) Stool Campylobacter PCR (NotDetected) Stl C. diff Tox B Gene Negative Cdiff Gene (Neg) Stool Cryptosporidium PCR (NotDetected) Stl E.coli Shiga Tox PCR (NotDetected) Stl Enterotoxigenic E PCR (NotDetected) Stool EPEC (PCR) (NotDetected) Stool EAEC (PCR) (NotDetected) Stl E. histolytica PCR (NotDetected) Stool Giardia Lamblia PCR (NotDetected) Stool Salmonella PCR (NotDetected) Stool Sapovirus (PCR) (NotDetected) Stl P. shigelloides PCR (NotDetected) Stl Shigella/EIEC PCR (NotDetected) St Y.enterocolitica PCR (NotDetected) Stool Vibrio (PCR) (NotDetected) Stl Vibrio cholerae PCR (NotDetected) Stl Norovirus GI/GII PCR (NotDetected) Adenovirus (PCR) (NotDetected) B. pertussis DNA (PCR) (NotDetected) B.parapertussis DNA PCR (NotDetected) C. pneumoniae DNA (PCR) (NotDetected) Coronavirus OC43 (PCR) (NotDetected) Coronavirus HKU1 (PCR) (NotDetected) Coronavirus 229E (PCR) (NotDetected) SARS-CoV-2 (PCR) (NotDetected) Coronavirus NL63 (PCR) (NotDetected) Human Metapneumovir PCR (NotDetected) Influenza Type A (PCR) (NotDetected) Influenza Type B (PCR) (NotDetected) M. pneumoniae (PCR) (NotDetected) Parainfluenza 1 (PCR) (NotDetected) Parainfluenza 2 (PCR) (NotDetected) Parainfluenza 3 (PCR) (NotDetected) Parainfluenza 4 (PCR) (NotDetected) RSV (PCR) (NotDetected) Entero/Rhino (PCR) (NotDetected) 03/25/23 03/25/23 03/26/23 Range/Units 18:07 20:18 00:02 WBC (4.8-10.8) K/ul RBC (4.70-6.10) M/uL Hgb (14.0-18.0) g/dl Hct (42.0-52.0) % MCV (80.0-100.0) fL MCH (25.0-34.0) pg MCHC (32.0-36.0) g/dL RDW Std Deviation (36.4-46.3) fL RDW Coeff of Nona (11.5-14.5) % Plt Count (130-400) K/uL MPV (9.4-12.4) fL Immature Gran % (Auto) % Neut % (Auto) % Lymph % (Auto) % [place] % (Auto) % Eos % (Auto) % Baso % (Auto) % Reticulocyte % (Auto) (0.5-2.0) % Neut # (Auto) (1.40-6.50) K/uL Lymph # (Auto) (1.20-3.40) K/uL [place] # (Auto) (0.11-0.59) K/uL Eos # (Auto) (0.00-0.50) K/uL Baso # (Auto) (0.00-0.20) K/uL Reticulocyte # (0.02-0.10) 10^6/uL Immature Gran # (Auto) (0.01-0.20) K/uL Dohle Bodies Echinocytes VBG pH 7.39 (7.36-7.41) VBG pCO2 25 L (38-50) mmHg VBG pO2 54 mmHg VBG HCO3 15 mmol/L VBG O2 Saturation 87.3 % VBG Base Excess -8.1 mEq/L Sodium 138 (136-145) mmol/L Potassium 4.6 (3.5-5.1) mmol/L Chloride 109 H (98-107) mmol/L Carbon Dioxide 14 L (21-32) mmol/L Anion Gap 15 H (3-11) BUN 87 H (6-23) mg/dl Creatinine 3.33 H (0.6-1.4) mg/dl Est Cr Clr Drug Dosing 18.6 Est GFR ( Amer) 19.3 ml/min Est GFR (Non-Af Amer) 16.6 ml/min BUN/Creatinine Ratio 26.1 H (10-20) Glucose 100 H (70-99(Fasting)) mg/dl POC Glucose 134 H 79 (70-99) mg/dl Estimat Average Glucose mg/dl Hemoglobin A1c (4.5-5.6) % Lactate 2.7 H* (0.4-2.0) mmol/L Calcium 8.1 L (8.6-10.3) mg/dl Phosphorus (2.5-4.9) mg/dl Magnesium (1.7-2.4) mg/dl Iron (35-175) mcg/dl TIBC (250-450) mcg/dl Unsaturated IBC (155-355) mcg/dl Transferrin % Sat (20-50) % Ferritin (8-388) ng/ml Total Bilirubin (0.2-1.0) mg/dl AST (13-39) U/L ALT (7-52) U/L Alkaline Phosphatase (34-104) U/L Lactate Dehydrogenase (86-244) U/L C-Reactive Protein (0-0.5) mg/dl Total Protein (6.0-8.3) gm/dl Albumin (3.4-5.0) gm/dl Globulin (2.5-4.0) gm/dl Albumin/Globulin Ratio (0.9-2) Lipase (11-82) U/L Vitamin B12 (180-914) pg/ml Folate (>5.38) ng/ml Procalcitonin (0-0.5) ng/ml Random Cortisol mcg/dl Urine Color Urine Appearance (Clear) Urine pH (4.5-7.5) Ur Specific [place] (1.000-1.030) Urine Protein (Negative) Urine Glucose (UA) (Negative) Urine Ketones (Negative) Urine Blood (Negative) Urine Nitrite (Negative) Urine Bilirubin (Negative) Urine Urobilinogen (Negative) Ur Leukocyte Esterase (Negative) Urine WBC (Auto) (0-5) /hpf Urine RBC (Auto) (0-4) /hpf U Hyaline Cast (Auto) (0-5) /lpf U Epithel Cells (Auto) (0-5) /lpf Urine Bacteria (Auto) (Negative) Nasal Screen MRSA (PCR) (Negative) Stool Occult Bld Scrn (Negative) Stl C. cayetanensis PCR (NotDetected) Stool Rotavirus A PCR (NotDetected) Stl Adenov F 40/41 PCR (NotDetected) Stool Astrovirus (PCR) (NotDetected) Stool Campylobacter PCR (NotDetected) Stl C. diff Tox B Gene (Neg) Stool Cryptosporidium PCR (NotDetected) Stl E.coli Shiga Tox PCR (NotDetected) Stl Enterotoxigenic E PCR (NotDetected) Stool EPEC (PCR) (NotDetected) Stool EAEC (PCR) (NotDetected) Stl E. histolytica PCR (NotDetected) Stool Giardia Lamblia PCR (NotDetected) Stool Salmonella PCR (NotDetected) Stool Sapovirus (PCR) (NotDetected) Stl P. shigelloides PCR (NotDetected) Stl Shigella/EIEC PCR (NotDetected) St Y.enterocolitica PCR (NotDetected) Stool Vibrio (PCR) (NotDetected) Stl Vibrio cholerae PCR (NotDetected) Stl Norovirus GI/GII PCR (NotDetected) Adenovirus (PCR) (NotDetected) B. pertussis DNA (PCR) (NotDetected) B.parapertussis DNA PCR (NotDetected) C. pneumoniae DNA (PCR) (NotDetected) Coronavirus OC43 (PCR) (NotDetected) Coronavirus HKU1 (PCR) (NotDetected) Coronavirus 229E (PCR) (NotDetected) SARS-CoV-2 (PCR) (NotDetected) Coronavirus NL63 (PCR) (NotDetected) Human Metapneumovir PCR (NotDetected) Influenza Type A (PCR) (NotDetected) Influenza Type B (PCR) (NotDetected) M. pneumoniae (PCR) (NotDetected) Parainfluenza 1 (PCR) (NotDetected) Parainfluenza 2 (PCR) (NotDetected) Parainfluenza 3 (PCR) (NotDetected) Parainfluenza 4 (PCR) (NotDetected) RSV (PCR) (NotDetected) Entero/Rhino (PCR) (NotDetected) 03/26/23 03/26/23 03/26/23 Range/Units 05:50 05:56 09:29 WBC 6.66 (4.8-10.8) K/ul RBC 2.59 L (4.70-6.10) M/uL Hgb 8.1 L (14.0-18.0) g/dl Hct 24.3 L (42.0-52.0) % MCV 93.8 (80.0-100.0) fL MCH 31.3 (25.0-34.0) pg MCHC 33.3 (32.0-36.0) g/dL RDW Std Deviation 49.4 H (36.4-46.3) fL RDW Coeff of Nona 14.3 (11.5-14.5) % Plt Count 100 L (130-400) K/uL MPV 11.6 (9.4-12.4) fL Immature Gran % (Auto) 1.2 % Neut % (Auto) 75.7 % Lymph % (Auto) 12.6 % [place] % (Auto) 9.5 % Eos % (Auto) 0.5 % Baso % (Auto) 0.5 % Reticulocyte % (Auto) (0.5-2.0) % Neut # (Auto) 5.05 (1.40-6.50) K/uL Lymph # (Auto) 0.84 L (1.20-3.40) K/uL [place] # (Auto) 0.63 H (0.11-0.59) K/uL Eos # (Auto) 0.03 (0.00-0.50) K/uL Baso # (Auto) 0.03 (0.00-0.20) K/uL Reticulocyte # (0.02-0.10) 10^6/uL Immature Gran # (Auto) 0.08 (0.01-0.20) K/uL Dohle Bodies 2+ Echinocytes 2+ VBG pH (7.36-7.41) VBG pCO2 (38-50) mmHg VBG pO2 mmHg VBG HCO3 mmol/L VBG O2 Saturation % VBG Base Excess mEq/L Sodium 139 (136-145) mmol/L Potassium 3.8 (3.5-5.1) mmol/L Chloride 108 H (98-107) mmol/L Carbon Dioxide 18 L (21-32) mmol/L Anion Gap 13 H (3-11) BUN 88 H (6-23) mg/dl Creatinine 3.26 H (0.6-1.4) mg/dl Est Cr Clr Drug Dosing 18.9 Est GFR ( Amer) 19.8 ml/min Est GFR (Non-Af Amer) 17.1 ml/min BUN/Creatinine Ratio 27.0 H (10-20) Glucose 73 (70-99(Fasting)) mg/dl POC Glucose 75 (70-99) mg/dl Estimat Average Glucose mg/dl Hemoglobin A1c (4.5-5.6) % Lactate 1.6 (0.4-2.0) mmol/L Calcium 8.0 L (8.6-10.3) mg/dl Phosphorus 4.1 (2.5-4.9) mg/dl Magnesium 1.4 L (1.7-2.4) mg/dl Iron (35-175) mcg/dl TIBC (250-450) mcg/dl Unsaturated IBC (155-355) mcg/dl Transferrin % Sat (20-50) % Ferritin (8-388) ng/ml Total Bilirubin (0.2-1.0) mg/dl AST (13-39) U/L ALT (7-52) U/L Alkaline Phosphatase (34-104) U/L Lactate Dehydrogenase (86-244) U/L C-Reactive Protein 22.29 H (0-0.5) mg/dl Total Protein (6.0-8.3) gm/dl Albumin 3.0 L (3.4-5.0) gm/dl Globulin (2.5-4.0) gm/dl Albumin/Globulin Ratio (0.9-2) Lipase (11-82) U/L Vitamin B12 (180-914) pg/ml Folate (>5.38) ng/ml Procalcitonin 59.42 H (0-0.5) ng/ml Random Cortisol mcg/dl Urine Color Urine Appearance (Clear) Urine pH (4.5-7.5) Ur Specific [place] (1.000-1.030) Urine Protein (Negative) Urine Glucose (UA) (Negative) Urine Ketones (Negative) Urine Blood (Negative) Urine Nitrite (Negative) Urine Bilirubin (Negative) Urine Urobilinogen (Negative) Ur Leukocyte Esterase (Negative) Urine WBC (Auto) (0-5) /hpf Urine RBC (Auto) (0-4) /hpf U Hyaline Cast (Auto) (0-5) /lpf U Epithel Cells (Auto) (0-5) /lpf Urine Bacteria (Auto) (Negative) Nasal Screen MRSA (PCR) (Negative) Stool Occult Bld Scrn (Negative) Stl C. cayetanensis PCR (NotDetected) Stool Rotavirus A PCR (NotDetected) Stl Adenov F 40/41 PCR (NotDetected) Stool Astrovirus (PCR) (NotDetected) Stool Campylobacter PCR (NotDetected) Stl C. diff Tox B Gene (Neg) Stool Cryptosporidium PCR (NotDetected) Stl E.coli Shiga Tox PCR (NotDetected) Stl Enterotoxigenic E PCR (NotDetected) Stool EPEC (PCR) (NotDetected) Stool EAEC (PCR) (NotDetected) Stl E. histolytica PCR (NotDetected) Stool Giardia Lamblia PCR (NotDetected) Stool Salmonella PCR (NotDetected) Stool Sapovirus (PCR) (NotDetected) Stl P. shigelloides PCR (NotDetected) Stl Shigella/EIEC PCR (NotDetected) St Y.enterocolitica PCR (NotDetected) Stool Vibrio (PCR) (NotDetected) Stl Vibrio cholerae PCR (NotDetected) Stl Norovirus GI/GII PCR (NotDetected) Adenovirus (PCR) (NotDetected) B. pertussis DNA (PCR) (NotDetected) B.parapertussis DNA PCR (NotDetected) C. pneumoniae DNA (PCR) (NotDetected) Coronavirus OC43 (PCR) (NotDetected) Coronavirus HKU1 (PCR) (NotDetected) Coronavirus 229E (PCR) (NotDetected) SARS-CoV-2 (PCR) (NotDetected) Coronavirus NL63 (PCR) (NotDetected) Human Metapneumovir PCR (NotDetected) Influenza Type A (PCR) (NotDetected) Influenza Type B (PCR) (NotDetected) M. pneumoniae (PCR) (NotDetected) Parainfluenza 1 (PCR) (NotDetected) Parainfluenza 2 (PCR) (NotDetected) Parainfluenza 3 (PCR) (NotDetected) Parainfluenza 4 (PCR) (NotDetected) RSV (PCR) (NotDetected) Entero/Rhino (PCR) (NotDetected) 03/26/23 03/26/23 03/26/23 Range/Units 14:06 18:23 23:40 WBC (4.8-10.8) K/ul RBC (4.70-6.10) M/uL Hgb (14.0-18.0) g/dl Hct (42.0-52.0) % MCV (80.0-100.0) fL MCH (25.0-34.0) pg MCHC (32.0-36.0) g/dL RDW Std Deviation (36.4-46.3) fL RDW Coeff of Nona (11.5-14.5) % Plt Count (130-400) K/uL MPV (9.4-12.4) fL Immature Gran % (Auto) % Neut % (Auto) % Lymph % (Auto) % [place] % (Auto) % Eos % (Auto) % Baso % (Auto) % Reticulocyte % (Auto) (0.5-2.0) % Neut # (Auto) (1.40-6.50) K/uL Lymph # (Auto) (1.20-3.40) K/uL [place] # (Auto) (0.11-0.59) K/uL Eos # (Auto) (0.00-0.50) K/uL Baso # (Auto) (0.00-0.20) K/uL Reticulocyte # (0.02-0.10) 10^6/uL Immature Gran # (Auto) (0.01-0.20) K/uL Dohle Bodies Echinocytes VBG pH (7.36-7.41) VBG pCO2 (38-50) mmHg VBG pO2 mmHg VBG HCO3 mmol/L VBG O2 Saturation % VBG Base Excess mEq/L Sodium (136-145) mmol/L Potassium (3.5-5.1) mmol/L Chloride (98-107) mmol/L Carbon Dioxide (21-32) mmol/L Anion Gap (3-11) BUN (6-23) mg/dl Creatinine (0.6-1.4) mg/dl Est Cr Clr Drug Dosing Est GFR ( Amer) ml/min Est GFR (Non-Af Amer) ml/min BUN/Creatinine Ratio (10-20) Glucose (70-99(Fasting)) mg/dl POC Glucose 107 H 84 140 H (70-99) mg/dl Estimat Average Glucose mg/dl Hemoglobin A1c (4.5-5.6) % Lactate (0.4-2.0) mmol/L Calcium (8.6-10.3) mg/dl Phosphorus (2.5-4.9) mg/dl Magnesium (1.7-2.4) mg/dl Iron (35-175) mcg/dl TIBC (250-450) mcg/dl Unsaturated IBC (155-355) mcg/dl Transferrin % Sat (20-50) % Ferritin (8-388) ng/ml Total Bilirubin (0.2-1.0) mg/dl AST (13-39) U/L ALT (7-52) U/L Alkaline Phosphatase (34-104) U/L Lactate Dehydrogenase (86-244) U/L C-Reactive Protein (0-0.5) mg/dl Total Protein (6.0-8.3) gm/dl Albumin (3.4-5.0) gm/dl Globulin (2.5-4.0) gm/dl Albumin/Globulin Ratio (0.9-2) Lipase (11-82) U/L Vitamin B12 (180-914) pg/ml Folate (>5.38) ng/ml Procalcitonin (0-0.5) ng/ml Random Cortisol mcg/dl Urine Color Urine Appearance (Clear) Urine pH (4.5-7.5) Ur Specific [place] (1.000-1.030) Urine Protein (Negative) Urine Glucose (UA) (Negative) Urine Ketones (Negative) Urine Blood (Negative) Urine Nitrite (Negative) Urine Bilirubin (Negative) Urine Urobilinogen (Negative) Ur Leukocyte Esterase (Negative) Urine WBC (Auto) (0-5) /hpf Urine RBC (Auto) (0-4) /hpf U Hyaline Cast (Auto) (0-5) /lpf U Epithel Cells (Auto) (0-5) /lpf Urine Bacteria (Auto) (Negative) Nasal Screen MRSA (PCR) (Negative) Stool Occult Bld Scrn (Negative) Stl C. cayetanensis PCR (NotDetected) Stool Rotavirus A PCR (NotDetected) Stl Adenov F 40/41 PCR (NotDetected) Stool Astrovirus (PCR) (NotDetected) Stool Campylobacter PCR (NotDetected) Stl C. diff Tox B Gene (Neg) Stool Cryptosporidium PCR (NotDetected) Stl E.coli Shiga Tox PCR (NotDetected) Stl Enterotoxigenic E PCR (NotDetected) Stool EPEC (PCR) (NotDetected) Stool EAEC (PCR) (NotDetected) Stl E. histolytica PCR (NotDetected) Stool Giardia Lamblia PCR (NotDetected) Stool Salmonella PCR (NotDetected) Stool Sapovirus (PCR) (NotDetected) Stl P. shigelloides PCR (NotDetected) Stl Shigella/EIEC PCR (NotDetected) St Y.enterocolitica PCR (NotDetected) Stool Vibrio (PCR) (NotDetected) Stl Vibrio cholerae PCR (NotDetected) Stl Norovirus GI/GII PCR (NotDetected) Adenovirus (PCR) (NotDetected) B. pertussis DNA (PCR) (NotDetected) B.parapertussis DNA PCR (NotDetected) C. pneumoniae DNA (PCR) (NotDetected) Coronavirus OC43 (PCR) (NotDetected) Coronavirus HKU1 (PCR) (NotDetected) Coronavirus 229E (PCR) (NotDetected) SARS-CoV-2 (PCR) (NotDetected) Coronavirus NL63 (PCR) (NotDetected) Human Metapneumovir PCR (NotDetected) Influenza Type A (PCR) (NotDetected) Influenza Type B (PCR) (NotDetected) M. pneumoniae (PCR) (NotDetected) Parainfluenza 1 (PCR) (NotDetected) Parainfluenza 2 (PCR) (NotDetected) Parainfluenza 3 (PCR) (NotDetected) Parainfluenza 4 (PCR) (NotDetected) RSV (PCR) (NotDetected) Entero/Rhino (PCR) (NotDetected) 03/27/23 03/27/23 03/27/23 Range/Units 04:34 05:25 05:32 WBC 11.26 H (4.8-10.8) K/ul RBC 2.64 L (4.70-6.10) M/uL Hgb 8.4 L (14.0-18.0) g/dl Hct 24.1 L (42.0-52.0) % MCV 91.3 (80.0-100.0) fL MCH 31.8 (25.0-34.0) pg MCHC 34.9 (32.0-36.0) g/dL RDW Std Deviation 46.9 H (36.4-46.3) fL RDW Coeff of Nona 14.0 (11.5-14.5) % Plt Count 117 L (130-400) K/uL MPV 12.4 (9.4-12.4) fL Immature Gran % (Auto) 1.2 % Neut % (Auto) 79.8 % Lymph % (Auto) 10.2 % [place] % (Auto) 6.7 % Eos % (Auto) 1.9 % Baso % (Auto) 0.2 % Reticulocyte % (Auto) 1.2 (0.5-2.0) % Neut # (Auto) 8.99 H (1.40-6.50) K/uL Lymph # (Auto) 1.15 L (1.20-3.40) K/uL [place] # (Auto) 0.76 H (0.11-0.59) K/uL Eos # (Auto) 0.21 (0.00-0.50) K/uL Baso # (Auto) 0.02 (0.00-0.20) K/uL Reticulocyte # 0.03 (0.02-0.10) 10^6/uL Immature Gran # (Auto) 0.13 (0.01-0.20) K/uL Dohle Bodies 1+ Echinocytes VBG pH (7.36-7.41) VBG pCO2 (38-50) mmHg VBG pO2 mmHg VBG HCO3 mmol/L VBG O2 Saturation % VBG Base Excess mEq/L Sodium 138 (136-145) mmol/L Potassium 2.7 L D (3.5-5.1) mmol/L Chloride 105 (98-107) mmol/L Carbon Dioxide 21 (21-32) mmol/L Anion Gap 12 H (3-11) BUN 84 H (6-23) mg/dl Creatinine 3.01 H (0.6-1.4) mg/dl Est Cr Clr Drug Dosing 20.5 Est GFR ( Amer) 21.8 ml/min Est GFR (Non-Af Amer) 18.8 ml/min BUN/Creatinine Ratio 27.9 H (10-20) Glucose 112 H (70-99(Fasting)) mg/dl POC Glucose 126 H (70-99) mg/dl Estimat Average Glucose mg/dl Hemoglobin A1c (4.5-5.6) % Lactate (0.4-2.0) mmol/L Calcium 7.9 L (8.6-10.3) mg/dl Phosphorus 3.4 (2.5-4.9) mg/dl Magnesium 1.8 (1.7-2.4) mg/dl Iron 37 (35-175) mcg/dl TIBC 139 L (250-450) mcg/dl Unsaturated IBC 102 L (155-355) mcg/dl Transferrin % Sat 27 (20-50) % Ferritin 466.6 H (8-388) ng/ml Total Bilirubin (0.2-1.0) mg/dl AST (13-39) U/L ALT (7-52) U/L Alkaline Phosphatase (34-104) U/L Lactate Dehydrogenase 296 H (86-244) U/L C-Reactive Protein (0-0.5) mg/dl Total Protein (6.0-8.3) gm/dl Albumin 2.9 L (3.4-5.0) gm/dl Globulin (2.5-4.0) gm/dl Albumin/Globulin Ratio (0.9-2) Lipase (11-82) U/L Vitamin B12 > 1500 H (180-914) pg/ml Folate 14.75 (>5.38) ng/ml Procalcitonin (0-0.5) ng/ml Random Cortisol mcg/dl Urine Color Urine Appearance (Clear) Urine pH (4.5-7.5) Ur Specific [place] (1.000-1.030) Urine Protein (Negative) Urine Glucose (UA) (Negative) Urine Ketones (Negative) Urine Blood (Negative) Urine Nitrite (Negative) Urine Bilirubin (Negative) Urine Urobilinogen (Negative) Ur Leukocyte Esterase (Negative) Urine WBC (Auto) (0-5) /hpf Urine RBC (Auto) (0-4) /hpf U Hyaline Cast (Auto) (0-5) /lpf U Epithel Cells (Auto) (0-5) /lpf Urine Bacteria (Auto) (Negative) Nasal Screen MRSA (PCR) (Negative) Stool Occult Bld Scrn Positive A (Negative) Stl C. cayetanensis PCR (NotDetected) Stool Rotavirus A PCR (NotDetected) Stl Adenov F 40/41 PCR (NotDetected) Stool Astrovirus (PCR) (NotDetected) Stool Campylobacter PCR (NotDetected) Stl C. diff Tox B Gene (Neg) Stool Cryptosporidium PCR (NotDetected) Stl E.coli Shiga Tox PCR (NotDetected) Stl Enterotoxigenic E PCR (NotDetected) Stool EPEC (PCR) (NotDetected) Stool EAEC (PCR) (NotDetected) Stl E. histolytica PCR (NotDetected) Stool Giardia Lamblia PCR (NotDetected) Stool Salmonella PCR (NotDetected) Stool Sapovirus (PCR) (NotDetected) Stl P. shigelloides PCR (NotDetected) Stl Shigella/EIEC PCR (NotDetected) St Y.enterocolitica PCR (NotDetected) Stool Vibrio (PCR) (NotDetected) Stl Vibrio cholerae PCR (NotDetected) Stl Norovirus GI/GII PCR (NotDetected) Adenovirus (PCR) (NotDetected) B. pertussis DNA (PCR) (NotDetected) B.parapertussis DNA PCR (NotDetected) C. pneumoniae DNA (PCR) (NotDetected) Coronavirus OC43 (PCR) (NotDetected) Coronavirus HKU1 (PCR) (NotDetected) Coronavirus 229E (PCR) (NotDetected) SARS-CoV-2 (PCR) (NotDetected) Coronavirus NL63 (PCR) (NotDetected) Human Metapneumovir PCR (NotDetected) Influenza Type A (PCR) (NotDetected) Influenza Type B (PCR) (NotDetected) M. pneumoniae (PCR) (NotDetected) Parainfluenza 1 (PCR) (NotDetected) Parainfluenza 2 (PCR) (NotDetected) Parainfluenza 3 (PCR) (NotDetected) Parainfluenza 4 (PCR) (NotDetected) RSV (PCR) (NotDetected) Entero/Rhino (PCR) (NotDetected) 03/27/23 Range/Units 12:26 WBC (4.8-10.8) K/ul RBC (4.70-6.10) M/uL Hgb (14.0-18.0) g/dl Hct (42.0-52.0) % MCV (80.0-100.0) fL MCH (25.0-34.0) pg MCHC (32.0-36.0) g/dL RDW Std Deviation (36.4-46.3) fL RDW Coeff of Nona (11.5-14.5) % Plt Count (130-400) K/uL MPV (9.4-12.4) fL Immature Gran % (Auto) % Neut % (Auto) % Lymph % (Auto) % [place] % (Auto) % Eos % (Auto) % Baso % (Auto) % Reticulocyte % (Auto) (0.5-2.0) % Neut # (Auto) (1.40-6.50) K/uL Lymph # (Auto) (1.20-3.40) K/uL [place] # (Auto) (0.11-0.59) K/uL Eos # (Auto) (0.00-0.50) K/uL Baso # (Auto) (0.00-0.20) K/uL Reticulocyte # (0.02-0.10) 10^6/uL Immature Gran # (Auto) (0.01-0.20) K/uL Dohle Bodies Echinocytes VBG pH (7.36-7.41) VBG pCO2 (38-50) mmHg VBG pO2 mmHg VBG HCO3 mmol/L VBG O2 Saturation % VBG Base Excess mEq/L Sodium (136-145) mmol/L Potassium (3.5-5.1) mmol/L Chloride (98-107) mmol/L Carbon Dioxide (21-32) mmol/L Anion Gap (3-11) BUN (6-23) mg/dl Creatinine (0.6-1.4) mg/dl Est Cr Clr Drug Dosing Est GFR ( Amer) ml/min Est GFR (Non-Af Amer) ml/min BUN/Creatinine Ratio (10-20) Glucose (70-99(Fasting)) mg/dl POC Glucose 167 H (70-99) mg/dl Estimat Average Glucose mg/dl Hemoglobin A1c (4.5-5.6) % Lactate (0.4-2.0) mmol/L Calcium (8.6-10.3) mg/dl Phosphorus (2.5-4.9) mg/dl Magnesium (1.7-2.4) mg/dl Iron (35-175) mcg/dl TIBC (250-450) mcg/dl Unsaturated IBC (155-355) mcg/dl Transferrin % Sat (20-50) % Ferritin (8-388) ng/ml Total Bilirubin (0.2-1.0) mg/dl AST (13-39) U/L ALT (7-52) U/L Alkaline Phosphatase (34-104) U/L Lactate Dehydrogenase (86-244) U/L C-Reactive Protein (0-0.5) mg/dl Total Protein (6.0-8.3) gm/dl Albumin (3.4-5.0) gm/dl Globulin (2.5-4.0) gm/dl Albumin/Globulin Ratio (0.9-2) Lipase (11-82) U/L Vitamin B12 (180-914) pg/ml Folate (>5.38) ng/ml Procalcitonin (0-0.5) ng/ml Random Cortisol mcg/dl Urine Color Urine Appearance (Clear) Urine pH (4.5-7.5) Ur Specific [place] (1.000-1.030) Urine Protein (Negative) Urine Glucose (UA) (Negative) Urine Ketones (Negative) Urine Blood (Negative) Urine Nitrite (Negative) Urine Bilirubin (Negative) Urine Urobilinogen (Negative) Ur Leukocyte Esterase (Negative) Urine WBC (Auto) (0-5) /hpf Urine RBC (Auto) (0-4) /hpf U Hyaline Cast (Auto) (0-5) /lpf U Epithel Cells (Auto) (0-5) /lpf Urine Bacteria (Auto) (Negative) Nasal Screen MRSA (PCR) (Negative) Stool Occult Bld Scrn (Negative) Stl C. cayetanensis PCR (NotDetected) Stool Rotavirus A PCR (NotDetected) Stl Adenov F 40/41 PCR (NotDetected) Stool Astrovirus (PCR) (NotDetected) Stool Campylobacter PCR (NotDetected) Stl C. diff Tox B Gene (Neg) Stool Cryptosporidium PCR (NotDetected) Stl E.coli Shiga Tox PCR (NotDetected) Stl Enterotoxigenic E PCR (NotDetected) Stool EPEC (PCR) (NotDetected) Stool EAEC (PCR) (NotDetected) Stl E. histolytica PCR (NotDetected) Stool Giardia Lamblia PCR (NotDetected) Stool Salmonella PCR (NotDetected) Stool Sapovirus (PCR) (NotDetected) Stl P. shigelloides PCR (NotDetected) Stl Shigella/EIEC PCR (NotDetected) St Y.enterocolitica PCR (NotDetected) Stool Vibrio (PCR) (NotDetected) Stl Vibrio cholerae PCR (NotDetected) Stl Norovirus GI/GII PCR (NotDetected) Adenovirus (PCR) (NotDetected) B. pertussis DNA (PCR) (NotDetected) B.parapertussis DNA PCR (NotDetected) C. pneumoniae DNA (PCR) (NotDetected) Coronavirus OC43 (PCR) (NotDetected) Coronavirus HKU1 (PCR) (NotDetected) Coronavirus 229E (PCR) (NotDetected) SARS-CoV-2 (PCR) (NotDetected) Coronavirus NL63 (PCR) (NotDetected) Human Metapneumovir PCR (NotDetected) Influenza Type A (PCR) (NotDetected) Influenza Type B (PCR) (NotDetected) M. pneumoniae (PCR) (NotDetected) Parainfluenza 1 (PCR) (NotDetected) Parainfluenza 2 (PCR) (NotDetected) Parainfluenza 3 (PCR) (NotDetected) Parainfluenza 4 (PCR) (NotDetected) RSV (PCR) (NotDetected) Entero/Rhino (PCR) (NotDetected)
[2023-03-27 17:17] LABS: Appearance Urine Cloudy (Clear); Bilirubin Urine Negative (Negative); Blood Urine Trace (Negative); Color Urine Yellow; Epithelial Cell Urine Auto >30 /lpf (0-5); Glucose Urine UA Negative (Negative); Ketones Urine Trace (Negative); Leukocyte Esterase Urine Negative (Negative); Nitrite Urine Negative (Negative); Protein Urine 1+ (Negative); Urobilinogen Urine Negative (Negative)
[2023-03-27 17:29] LABS: Bacteria Urine Automated 1+ (Negative); RBC Urine Automated 0-4 /hpf (0-4)
[2023-03-27 17:30] LABS: Amorphous Sediment Urine Present (None Prsent); Renal Epithelial Cells Urine 0-5 /lpf (0-5)
[2023-03-27] MEDS: ACETAMINOPHEN 1,000 MG/100 ML VIAL IV PRN (19:28)
[2023-03-28] MEDS: PIPERACILLIN/TAZOBACTAM 4.5 GM in DEXTROSE 5% MINI-B 100 ML IV SCH ×3 (00:07→17:16)
[2023-03-28] MEDS: INSULIN ASPART PER UNIT CHARGE SC SCH ×4 (00:29→17:52)
[2023-03-28 04:26] LABS: Basophils # (auto) 0.03 K/uL (0.00-0.20); Basophils % (auto) 0.3 %; Eosinophils # (auto) 0.33 K/uL (0.00-0.50); Eosinophils % (auto) 3.1 %; Hematocrit (blood only) 27.4 % (42.0-52.0); Immature Granulocytes # (auto) 0.06 K/uL (0.01-0.20); Immature Granulocytes % (auto) 0.6 %; Lymphocytes % (auto) 12.3 %; Mean Corpuscular Hemoglobin 30.7 pg (25.0-34.0); Mean Corpuscular Hgb Conc 32.8 g/dL (32.0-36.0); Mean Corpuscular Volume 93.5 fL (80.0-100.0); Mean Platelet Volume 12.1 fL (9.4-12.4); Monocytes # (auto) 0.99 K/uL (0.11-0.59); Monocytes % (auto) 9.3 %; Neutrophils # (auto) 7.88 K/uL (1.40-6.50); Neutrophils % (auto) 74.4 %; Platelet Count 121 K/uL (130-400); RDW Standard Deviation 48.1 fL (36.4-46.3); Red Blood Count 2.93 M/uL (4.70-6.10); White Blood Count 10.59 K/ul (4.8-10.8)
[2023-03-28 04:51] LABS: Partial Thromboplastin Ratio 1.1; Partial Thromboplastin Time 31 Seconds (21-31); Prothrombin Time 11.4 Seconds (9.0-12.0)
[2023-03-28 04:52] LABS: Albumin Globulin Ratio 1.1 (0.9-2); BUN Creatinine Ratio 28.2 (10-20); C Reactive Protein 6.99 mg/dl (0-0.5); Calcium 8.1 mg/dl (8.6-10.3); Creatinine Clr Calc Pharmacy 23.6 ml/min; Est GFR (African American) 25.8 ml/min; Est GFR (Non-African American) 22.2 ml/min; Globulin 2.8 gm/dl (2.5-4.0); Magnesium 1.8 mg/dl (1.7-2.4); Potassium 2.5 mmol/L (3.5-5.1); Total Protein 5.8 gm/dl (6.0-8.3)
[2023-03-28] MEDS ORDERED: MAGNESIUM SULFATE / D5W 1 GM/100 ML BAG IV ONE (05:00)
[2023-03-28] MEDS ORDERED: POTASSIUM CHLORIDE CRTAB 20 MEQ TABCR PO ONE (05:03)
[2023-03-28] MEDS: POTASSIUM CHLORIDE / WTR 10 MEQ/100 ML PLCT IV SCH ×8 (05:20→22:46)
[2023-03-28] MEDS: LACTATED RINGER'S 1,000 ML IV SCH ×2 (09:07→17:16)
[2023-03-28] MEDS: HEPARIN SOD 5,000 UNIT/0.5 ML VIAL SQ SCH ×2 (09:08→20:03)
[2023-03-28] MEDS: METOPROLOL SUCC 50MG EXT REL TAB PO SCH (09:08)
[2023-03-28] MEDS: allopurinoL 300 MG TAB PO SCH (09:08)
--- NOTE | 2023-03-28 11:29 | Hospitalist Progress Note ---
Date of Service March 28, 2023 Assessment & Plan (1) Severe sepsis: Plan: suspected source - intra-abdominal ?ischemic although he has chronic Cece's he has severe abd distension with pain (generalized) along with foul-smelling stool and report of diarrhea at [facility] a/p with liquid stool throughout the colon stool Biofire negative c diff x 2 both negative respiratory Biofire negative cxr without obvious pneumonia u/a mildly dirty but no bacteria or WBCs on microscopy - this was not sent for culture and urine samples are thrown away at 24 hours, repeat sample sent 03/27 and is with low colony count growth Blood cultures negative at 48 hours Continue zosyn empirically to cover for ischemic colitis, procalcitonin is now starting to downtrend Continue IV fluids with lactated Ringer's while oral intake remains negligible. Patient's appetite is improved would like to try full liquids today, progressing (2) Elevated lactic acid level: Plan: Anion gap mostly closed with lactate level resolved, therefore suspect his anion gap was mostly due to elevated lactate from hypotension causing poor organ perfusion +/- ischemic colitis. (3) Pseudo-obstruction of colon: Plan: chronic [place]'s previously seen by both GI & gen surg for this on prior admissions cont broad-spectrum IV abx (zosyn) Appreciate GI and surgical consultations - advance diet per surgery recommendations (4) Acute diarrhea: Plan: foul-smelling stool stool biofire negative c diff x 2 both negative Suspected intestinal/colonic ischemia given his severe pain and tenderness on abdominal exam by prior provider - currently abdomen is distended but nontender Monitor closely for worsening gastrointestinal symptoms at white blood count as diet is increased given concern for ischemia. Mesenteric ultrasound today performed given continued elevated creatinine however was essentially nonrevealing given overlying bowel gas. Could consider CT angiogram although given he is not a surgical candidate and would need to give intravenous contrast doubtful benefit would not outweigh any risk. Continues to have creatinine above baseline 03/29 (5) Acute kidney injury superimposed on chronic kidney disease: Plan: baseline Cr ~1.4 (02/2023) Elevated greater than 3 during admission Continues to downtrend with improved volume status Suspected to have sepsis induced ATN Fluids continued as noted pending progression of diet (6) Hypertension: Plan: - Metoprolol restarted 50 mg daily, home dose is 200 mg daily. Uptitrate as a ble Blood pressure and heart rate tolerating 03/28 and mildly hypertensive, increased to 75mg (7) BPH with obstruction/lower urinary tract symptoms: Plan: hold flomax cont fung (8) Acute metabolic encephalopathy: Plan: 2nd to severe sepsis, acidosis, etc supportive care Renewed soft mitts as continues to remain at risk of pulling out his IVs (9) Thrombocytopenia: Plan: likely due to sepsis Continue to monitor -will now improving (10) Normocytic anemia: Plan: B12 > 1500 Folate 14.75 Transferrin saturation 27%, ferritin 466 (in setting of acute illness) Reticulocyte count normal Appears to stabilized, continue to monitor daily Uptrending 03/28 (11) Hypertrophic cardiomyopathy: Plan: follows with [facility] Cardiology pre-load dependent state NO evidence of any decompensated; he is massively volume depleted hold cardiac meds IV fluids (12) [place] syndrome: Plan: as above (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 HbA1c 6.8 03/25 (14) Status post placement of cardiac pacemaker: Plan: placed for history of heart block Plan VTE prophylaxis - heparin 5000 units SQ BID Diet - clear liquids started 03/26, advance per surgical recommendations. Fulls anticipated today Disposition - continued admission to PCU Admission and Anticipated Discharge Date Admission Date: March 25, 2023 Celestino White was seen at the bedside this morning. He reports that he is tired of clears and his appetite is greatly improved this morning. Mittens were taken off and he is doing well. Had 2 loose but improving bowel movements last night. Abdomen is still distended, but is not tender. Potassium remains low and requiring repletion., Repeat post repletion pending for this morning no questions or concerns at bedside Physical Exam Physical Exam: General: A&O to name and place. NAD. Cooperative. HEENT: Atraumatic, normocephalic. vision/hearing grossly intact Pulm: CTAB A&P. -wheezes, -rales, -rhonchi. Symmetrical chest rise. No increased work of breathing. No respiratory distress. Cardiac: RRR, -mrg. Radial pulses intact and symmetrical. Abdominal: Distended but soft and nontender Results & Data Results & Data Vital Signs (Past 12 Hours) Vital Signs Temp Pulse Resp BP BP Pulse Ox O2 Del Method 03/28/23 08:13 36.4 C L 63 21 158/73 H 97 Room Air 03/28/23 07:30 Room Air 03/28/23 04:35 36.3 C L 78 22 151/74 H 98 Room Air 03/27/23 23:37 36.5 C 80 18 136/78 94 Room Air PG Care Time/CCT Total # of Minutes Spent Total Time Spent with Patient: Total time spent is greater than 50% in coordination of care (as documented) at patient's floor/unit and/or counseling patient: Coding Level of Care Code 36073 SUB INP/OBS CARE 3/50MIN Diagnoses Severe sepsis A41.9; R65.20 Elevated lactic acid level R79.89 Pseudo-obstruction of colon K59.81 Acute diarrhea R19.7 Acute kidney injury superimposed on chronic kidney disease N17.9; N18.9 Hypertension, unspecified type I10 Hypertension type: unspecified BPH with obstruction/lower urinary tract symptoms N40.1; N13.8 Acute metabolic encephalopathy G93.41 Thrombocytopenia D69.6 Normocytic anemia D64.9 Hypertrophic cardiomyopathy I42.2 [place] syndrome K59.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
[2023-03-28 11:41] LABS: BUN Creatinine Ratio 26.3 (10-20); Calcium 8.1 mg/dl (8.6-10.3); Creatinine Clr Calc Pharmacy 24.7 ml/min; Est GFR (African American) 25.8 ml/min; Est GFR (Non-African American) 22.2 ml/min; Magnesium 1.9 mg/dl (1.7-2.4); Potassium 2.9 mmol/L (3.5-5.1)
[2023-03-28] MEDS: MoRPHine SULFATE 2 MG/ML CARP IV PRN (12:41)
[2023-03-28] MEDS: PANTOprazole 40 MG in SYRINGE 0 ML IV SCH (12:42)
--- NOTE | 2023-03-28 13:30 | Surgery Progress Note ---
Date of Service March 28, 2023 Assessment & Plan (1) Pseudo-obstruction of colon: Plan: Assessment: Patient is a 78 years old gentleman with significant PMH- hypertrophic cardiomyopathy, acute kidney injury, left ventricular hypertrophy, recurrent kidney disease stage III, pseudo obstruction of the colon, Cece syndrome, type 2 diabetes, TIA, hypertension, BPH, memory impairment, hyperparathyroidism, and cardiomyopathy. Patient presented to ED with 2-day history fever, diarrhea, and low prepped pressure. Patient said his stomach hurt for last 2 days. T 38.5. Patient had diarrhea last 2 days with no bloody stool. Plan, no indication for urgent surgery now. conservative treatment, resuscitation with IV fluid, NPO, NG tube, consult GI to R/O ischemic bowel. repeat labs 6 hours based pt's co-morbilities, the prognosis is poor . D/W pt attending. will F/U. 03/26/2023 2:18 PM doing better, passed some liquid stool, clear diet today, continue conservative treatment will F/U 05/28/2022 12:47 PM stable, passed BM, no fever. may try full liquid diet today, continue conservative treatment will F/U 05/29/2022 1:29 PM stable, passed BM, no fever. may try full liquid diet today, continue conservative treatment will F/U Admission and Anticipated Discharge Date Admission Date: March 25, 2023 Subjective F/U pseudo-obstruction of the colon. pt is stable, passed 2 times liquid stool, no bloody stool, tolerated clear diet, no nausea, no vomiting, no fever. Review of Systems Constitutional: Memory impairment Eyes: as per Subjective / HPI Respiratory: as per Subjective / HPI Cardiovascular: Additional Comments: HTN, hypertrophic obstructive cardiomyopathy, left ventricular outflow tract obstruction, Gastrointestinal: Pseudo colon obstruction, Ogilie syndrome Genitourinary: + problem reported (BPH, chronic kidney disease stage III, acute renal injury) Neurologic: Memory impairment Endocrine: hyperparathyroidism Hematologic / Lymphatic: anemia Physical Exam Eyes: PERRL, conjunctivae normal, anicteric sclerae Respiratory: normal respiratory effort, lungs clear to auscultation Cardiovascular: Rate/Rhythm: regular rate Gastrointestinal (Abdomen): no significant distend, no tenderness, BS +. Neurologic: patellar DTR's 2+ bilat, sensation intact Results & Data Vital Signs (Past 12 Hours) Vital Signs Temp Pulse Resp BP BP Pulse Ox O2 Del Method 12/26/23 11:02 36.7 C 61 20 175/92 H 97 Room Air 03/28/23 08:13 36.4 C L 63 21 158/73 H 97 Room Air 03/28/23 07:30 Room Air 03/28/23 04:35 36.3 C L 78 22 151/74 H 98 Room Air Laboratory Results Abnormal lab results 03/27/23 03/27/23 03/27/23 Range/Units 15:59 16:41 19:04 RBC (4.70-6.10) M/uL Hgb (14.0-18.0) g/dl Hct (42.0-52.0) % RDW Std Deviation (36.4-46.3) fL Plt Count (130-400) K/uL Neut # (Auto) (1.40-6.50) K/uL [place] # (Auto) (0.11-0.59) K/uL Potassium 3.1 L (3.5-5.1) mmol/L Carbon Dioxide (21-32) mmol/L Anion Gap (3-11) BUN (6-23) mg/dl Creatinine (0.6-1.4) mg/dl BUN/Creatinine Ratio (10-20) Glucose (70-99(Fasting)) mg/dl POC Glucose 159 H (70-99) mg/dl Calcium (8.6-10.3) mg/dl AST (13-39) U/L C-Reactive Protein (0-0.5) mg/dl Total Protein (6.0-8.3) gm/dl Albumin (3.4-5.0) gm/dl Procalcitonin (0-0.5) ng/ml Urine Appearance Cloudy A (Clear) Urine Protein 1+ H (Negative) Urine Ketones Trace H (Negative) Urine Blood Trace H (Negative) Urine WBC (Auto) 5-10 H (0-5) /hpf U Epithel Cells (Auto) >30 H (0-5) /lpf Urine Bacteria (Auto) 1+ H (Negative) Amorphous Sediment Present A (None Prsent) 03/27/23 03/28/23 03/28/23 Range/Units 20:12 00:25 03:17 RBC 2.93 L (4.70-6.10) M/uL Hgb 9.0 L (14.0-18.0) g/dl Hct 27.4 L (42.0-52.0) % RDW Std Deviation 48.1 H (36.4-46.3) fL Plt Count 121 L (130-400) K/uL Neut # (Auto) 7.88 H (1.40-6.50) K/uL [place] # (Auto) 0.99 H (0.11-0.59) K/uL Potassium 2.5 L* (3.5-5.1) mmol/L Carbon Dioxide 20 L (21-32) mmol/L Anion Gap 13 H (3-11) BUN 74 H (6-23) mg/dl Creatinine 2.62 H D (0.6-1.4) mg/dl BUN/Creatinine Ratio 28.2 H (10-20) Glucose 121 H (70-99(Fasting)) mg/dl POC Glucose 142 H 121 H (70-99) mg/dl Calcium 8.1 L (8.6-10.3) mg/dl AST 54 H (13-39) U/L C-Reactive Protein 6.99 H (0-0.5) mg/dl Total Protein 5.8 L (6.0-8.3) gm/dl Albumin 3.0 L (3.4-5.0) gm/dl Procalcitonin 29.76 H (0-0.5) ng/ml Urine Appearance (Clear) Urine Protein (Negative) Urine Ketones (Negative) Urine Blood (Negative) Urine WBC (Auto) (0-5) /hpf U Epithel Cells (Auto) (0-5) /lpf Urine Bacteria (Auto) (Negative) Amorphous Sediment (None Prsent) 03/28/23 03/28/23 03/28/23 Range/Units 05:59 11:06 11:52 RBC (4.70-6.10) M/uL Hgb (14.0-18.0) g/dl Hct (42.0-52.0) % RDW Std Deviation (36.4-46.3) fL Plt Count (130-400) K/uL Neut # (Auto) (1.40-6.50) K/uL [place] # (Auto) (0.11-0.59) K/uL Potassium 2.9 L (3.5-5.1) mmol/L Carbon Dioxide 19 L (21-32) mmol/L Anion Gap 12 H (3-11) BUN 69 H (6-23) mg/dl Creatinine 2.62 H (0.6-1.4) mg/dl BUN/Creatinine Ratio 26.3 H (10-20) Glucose 153 H (70-99(Fasting)) mg/dl POC Glucose 141 H 154 H (70-99) mg/dl Calcium 8.1 L (8.6-10.3) mg/dl AST (13-39) U/L C-Reactive Protein (0-0.5) mg/dl Total Protein (6.0-8.3) gm/dl Albumin (3.4-5.0) gm/dl Procalcitonin (0-0.5) ng/ml Urine Appearance (Clear) Urine Protein (Negative) Urine Ketones (Negative) Urine Blood (Negative) Urine WBC (Auto) (0-5) /hpf U Epithel Cells (Auto) (0-5) /lpf Urine Bacteria (Auto) (Negative) Amorphous Sediment (None Prsent)
[2023-03-29] MEDS: INSULIN ASPART PER UNIT CHARGE SC SCH ×6 (00:27→22:06)
[2023-03-29 00:32] LABS: BUN Creatinine Ratio 25.8 (10-20); Calcium 7.9 mg/dl (8.6-10.3); Creatinine Clr Calc Pharmacy 26.1 ml/min; Est GFR (African American) 27.5 ml/min; Est GFR (Non-African American) 23.8 ml/min; Potassium 2.8 mmol/L (3.5-5.1)
[2023-03-29] MEDS: PIPERACILLIN/TAZOBACTAM 4.5 GM in DEXTROSE 5% MINI-B 100 ML IV SCH ×3 (00:35→17:23)
[2023-03-29] MEDS ORDERED: POTASSIUM CHLORIDE 20 MEQ/15 ML UDC PO STA (01:18)
[2023-03-29] MEDS: POTASSIUM CHLORIDE / WTR 10 MEQ/100 ML PLCT IV SCH ×7 (01:26→12:39)
[2023-03-29] MEDS: LACTATED RINGER'S 1,000 ML IV SCH ×2 (03:44→13:56)
[2023-03-29 06:37] LABS: Hematocrit (blood only) 27.1 % (42.0-52.0); Hemoglobin 8.9 g/dl (14.0-18.0); Mean Corpuscular Hemoglobin 30.9 pg (25.0-34.0); Mean Corpuscular Hgb Conc 32.8 g/dL (32.0-36.0); Mean Corpuscular Volume 94.1 fL (80.0-100.0); Mean Platelet Volume 11.5 fL (9.4-12.4); Platelet Count 103 K/uL (130-400); RDW Coefficient of Variation 13.8 % (11.5-14.5); RDW Standard Deviation 47.9 fL (36.4-46.3); Red Blood Count 2.88 M/uL (4.70-6.10); White Blood Count 9.53 K/ul (4.8-10.8)
[2023-03-29 06:52] LABS: Albumin Globulin Ratio 1.2 (0.9-2); Albumin Level 2.9 gm/dl (3.4-5.0); BUN Creatinine Ratio 25.8 (10-20); Bilirubin,Total 0.8 mg/dl (0.2-1.0); Creatinine Clr Calc Pharmacy 27.7 ml/min; Est GFR (African American) 29.7 ml/min; Est GFR (Non-African American) 25.6 ml/min; Globulin 2.5 gm/dl (2.5-4.0); Magnesium 1.7 mg/dl (1.7-2.4); Total Protein 5.4 gm/dl (6.0-8.3)
[2023-03-29 07:06] LABS: Basophils # (auto) 0.04 K/uL (0.00-0.20); Basophils % (auto) 0.4 %; Dohle Bodies 1+; Eosinophils # (auto) 0.38 K/uL (0.00-0.50); Immature Granulocytes # (auto) 0.09 K/uL (0.01-0.20); Immature Granulocytes % (auto) 0.9 %; Lymphocytes # (auto) 1.19 K/uL (1.20-3.40); Lymphocytes % (auto) 12.5 %; Monocytes # (auto) 0.97 K/uL (0.11-0.59); Monocytes % (auto) 10.2 %; Neutrophils # (auto) 6.86 K/uL (1.40-6.50)
[2023-03-29] MEDS ORDERED: Nursing to Pharmacy Communication SCH (07:45)
[2023-03-29] MEDS: METOPROLOL SUCC 25MG EXT REL TAB PO SCH (08:38)
[2023-03-29] MEDS: allopurinoL 300 MG TAB PO SCH (08:39)
[2023-03-29] MEDS: HEPARIN SOD 5,000 UNIT/0.5 ML VIAL SQ SCH ×2 (08:39→20:00)
[2023-03-29] MEDS ORDERED: LACTATED RINGER'S 250 ML IV ONE (09:31)
[2023-03-29] MEDS: MAGNESIUM CHLORIDE W/CALCIUM 64MG DELAYED REL TAB PO SCH ×2 (10:33→20:00)
[2023-03-29] MEDS: PANTOprazole 40 MG in SYRINGE 0 ML IV SCH (10:37)
--- NOTE | 2023-03-29 13:30 | Hospitalist Progress Note ---
Date of Service March 29, 2023 Assessment & Plan (1) Severe sepsis: Plan: suspected source - intra-abdominal ?ischemic although he has chronic Cece's he has severe abd distension with pain (generalized) along with foul-smelling stool and report of diarrhea at the [facility] CT a/p with liquid stool throughout the colon stool Biofire negative c diff x 2 both negative respiratory Biofire negative cxr without obvious pneumonia u/a mildly dirty but no bacteria or WBCs on microscopy - this was not sent for culture and urine samples are thrown away at 24 hours, repeat sample sent 03/27 and is with low colony count growth Blood cultures negative at 48 hours Continue zosyn empirically to cover for ischemic colitis, procalcitonin is now starting to downtrend Continue IV fluids with lactated Ringer's while oral intake remains negligible. Patient's appetite improved and is tolerating full liquids. Continue to follow Remains with significant diarrhea, this is starting to improve. Hypokalemia persistent overnight as noted (2) Acute diarrhea: Plan: foul-smelling stool stool biofire negative c diff x 2 both negative Suspected intestinal/colonic ischemia given his severe pain and tenderness on abdominal exam by prior provider - currently abdomen remains distended but nontender Monitor closely for worsening gastrointestinal symptoms at white blood count as diet is increased given concern for ischemia. Mesenteric ultrasound today performed given continued elevated creatinine however was essentially nonrevealing given overlying bowel gas. Could consider CT angiogram although given he is not a surgical candidate and would need to give intravenous contrast doubtful benefit would not outweigh any risk. Continues to have creatinine above baseline 03/29 Patient remains persistently hypokalemic with diarrhea, but which is starting to improve. Suspect total body deficit of potassium superimposed on losses with diarrhea. Continue to replete as needed, repeat BMP this afternoon. Hopefully this will improve and stabilized with repletion and assess diarrhea improves. Magnesium is normal (3) Elevated lactic acid level: Plan: Anion gap mostly closed with lactate level resolved, therefore suspect his anion gap was mostly due to elevated lactate from hypotension causing poor organ perfusion +/- ischemic colitis. 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 Uptitrate as able Blood pressure and heart rate tolerating 03/28 and mildly hypertensive, increased to 75mg (7) BPH with obstruction/lower urinary tract symptoms: Plan: hold flomax cont fung (8) Acute metabolic encephalopathy: Plan: 2nd to severe sepsis, acidosis, etc supportive care Improving. 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 HbA1c 6.8 03/25 (14) Status post placement of cardiac pacemaker: Plan: placed for history of heart block Plan VTE prophylaxis - heparin 5000 units SQ BID Diet - clear liquids started 03/26, advance per surgical recommendations. Fulls anticipated today Disposition - continued admission to PCU Admission and Anticipated Discharge Date Admission Date: March 25, 2023 Subjective Seen at bedside. No complaints. Tolerating diet and feels slightly improved today. Remains with some diarrhea, improved slightly overnight. No chest pain, chest pressure, fever, chills Physical Exam Physical Exam: General: A&O to name and place. NAD. Cooperative. HEENT: Atraumatic, normocephalic. vision/hearing grossly intact Pulm: CTAB A&P. -wheezes, -rales, -rhonchi. Symmetrical chest rise. No increased work of breathing. No respiratory distress. Cardiac: RRR, -mrg. Radial pulses intact and symmetrical. Abdominal: Distended but soft and nontender Results & Data Results & Data Vital Signs (Past 12 Hours) Vital Signs Temp Pulse Resp BP BP Pulse Ox O2 Del Method 03/29/23 12:32 36.8 C 52 L 21 160/97 H 98 Room Air 03/29/23 08:01 37.1 C 59 L 22 145/74 H 95 Room Air 03/29/23 03:26 36.8 C 72 18 130/71 93 Room Air PG Care Time/CCT Total # of Minutes Spent Total Time Spent with Patient: Total time spent is greater than 50% in coordination of care (as documented) at patient's floor/unit and/or counseling patient: Coding Level of Care Code 20470 SUB INP/OBS CARE 3/50MIN Diagnoses Severe sepsis A41.9; R65.20 Acute diarrhea R19.7 Elevated lactic acid level R79.89 Pseudo-obstruction of colon K59.81 Acute kidney injury superimposed on chronic kidney disease N17.9; N18.9 Hypertension, unspecified type I10 Hypertension type: unspecified BPH with obstruction/lower urinary tract symptoms N40.1; N13.8 Acute metabolic encephalopathy G93.41 Thrombocytopenia D69.6 Normocytic anemia D64.9 Hypertrophic cardiomyopathy I42.2 Cece syndrome K59.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
[2023-03-29] MEDS: POTASSIUM CHLORIDE 20 MEQ in LACTATED RINGER'S 1,000 ML IV SCH ×2 (13:39→22:06)
[2023-03-29] MEDS: POTASSIUM CHLORIDE CRTAB 20 MEQ TABCR PO SCH ×2 (15:04→20:00)
--- NOTE | 2023-03-29 17:26 | Surgery Progress Note ---
Date of Service March 29, 2023 Assessment & Plan (1) Pseudo-obstruction of colon: Plan: Assessment: Patient is a 78 years old gentleman with significant PMH- hypertrophic cardiomyopathy, acute kidney injury, left ventricular hypertrophy, recurrent kidney disease stage III, pseudo obstruction of the colon, Cece syndrome, type 2 diabetes, TIA, hypertension, BPH, memory impairment, hyperparathyroidism, and cardiomyopathy. Patient presented to ED with 2-day history fever, diarrhea, and low prepped pressure. Patient said his stomach hurt for last 2 days. T 38.5. Patient had diarrhea last 2 days with no bloody stool. Plan, no indication for urgent surgery now. conservative treatment, resuscitation with IV fluid, NPO, NG tube, consult GI to R/O ischemic bowel. repeat labs 6 hours based pt's co-morbilities, the prognosis is poor . D/W pt attending. will F/U. 03/26/2023 2:18 PM doing better, passed some liquid stool, clear diet today, continue conservative treatment will F/U 03/27/2023 12:47 PM stable, passed BM, no fever. may try full liquid diet today, continue conservative treatment will F/U 03/28/2023 1:29 PM stable, passed BM, no fever. may try full liquid diet today, continue conservative treatment will F/U 03/29/2023 5:28 PM stable, passed BM, no fever. tolerated diet, continue conservative treatment No surgical intervention indication now.sign off , please call with questions and concerns, Thanks. Admission and Anticipated Discharge Date Admission Date: March 25, 2023 Subjective pt is stable, tolerated diet, no fever. BM x3. Review of Systems Constitutional: Memory impairment Eyes: as per Subjective / HPI Respiratory: as per Subjective / HPI Cardiovascular: Additional Comments: HTN, hypertrophic obstructive cardiomyopathy, left ventricular outflow tract obstruction, Gastrointestinal: Pseudo colon obstruction, Ogilie syndrome Genitourinary: + problem reported (BPH, chronic kidney disease stage III, acute renal injury) Neurologic: Memory impairment Endocrine: hyperparathyroidism Hematologic / Lymphatic: anemia Physical Exam Eyes: PERRL, conjunctivae normal, anicteric sclerae Respiratory: normal respiratory effort, lungs clear to auscultation Cardiovascular: Rate/Rhythm: regular rate Gastrointestinal (Abdomen): soft, NT, ND, BS +. Neurologic: patellar DTR's 2+ bilat, sensation intact Results & Data Vital Signs (Past 12 Hours) Vital Signs Temp Pulse Resp BP Pulse Ox O2 Del Method 03/29/23 12:32 36.8 C 52 L 21 160/97 H 98 Room Air 03/29/23 08:01 37.1 C 59 L 22 145/74 H 95 Room Air Laboratory Results Abnormal lab results 03/28/23 03/28/23 03/29/23 Range/Units 17:44 23:58 00:21 RBC (4.70-6.10) M/uL Hgb (14.0-18.0) g/dl Hct (42.0-52.0) % RDW Std Deviation (36.4-46.3) fL Plt Count (130-400) K/uL Neut # (Auto) (1.40-6.50) K/uL Lymph # (Auto) (1.20-3.40) K/uL [place] # (Auto) (0.11-0.59) K/uL Potassium 2.8 L (3.5-5.1) mmol/L Chloride 108 H (98-107) mmol/L Carbon Dioxide 19 L (21-32) mmol/L BUN 64 H (6-23) mg/dl Creatinine 2.48 H (0.6-1.4) mg/dl BUN/Creatinine Ratio 25.8 H (10-20) Glucose 140 H (70-99(Fasting)) mg/dl POC Glucose 175 H 141 H (70-99) mg/dl Calcium 7.9 L (8.6-10.3) mg/dl Total Protein (6.0-8.3) gm/dl Albumin (3.4-5.0) gm/dl 03/29/23 03/29/23 03/29/23 Range/Units 06:18 06:23 12:09 RBC 2.88 L (4.70-6.10) M/uL Hgb 8.9 L (14.0-18.0) g/dl Hct 27.1 L (42.0-52.0) % RDW Std Deviation 47.9 H (36.4-46.3) fL Plt Count 103 L (130-400) K/uL Neut # (Auto) 6.86 H (1.40-6.50) K/uL Lymph # (Auto) 1.19 L (1.20-3.40) K/uL [place] # (Auto) 0.97 H (0.11-0.59) K/uL Potassium 3.0 L (3.5-5.1) mmol/L Chloride 111 H (98-107) mmol/L Carbon Dioxide 18 L (21-32) mmol/L BUN 60 H (6-23) mg/dl Creatinine 2.33 H (0.6-1.4) mg/dl BUN/Creatinine Ratio 25.8 H (10-20) Glucose 157 H (70-99(Fasting)) mg/dl POC Glucose 154 H 163 H (70-99) mg/dl Calcium 8.0 L (8.6-10.3) mg/dl Total Protein 5.4 L (6.0-8.3) gm/dl Albumin 2.9 L (3.4-5.0) gm/dl 03/29/23 Range/Units 17:08 RBC (4.70-6.10) M/uL Hgb (14.0-18.0) g/dl Hct (42.0-52.0) % RDW Std Deviation (36.4-46.3) fL Plt Count (130-400) K/uL Neut # (Auto) (1.40-6.50) K/uL Lymph # (Auto) (1.20-3.40) K/uL [place] # (Auto) (0.11-0.59) K/uL Potassium (3.5-5.1) mmol/L Chloride (98-107) mmol/L Carbon Dioxide (21-32) mmol/L BUN (6-23) mg/dl Creatinine (0.6-1.4) mg/dl BUN/Creatinine Ratio (10-20) Glucose (70-99(Fasting)) mg/dl POC Glucose 175 H (70-99) mg/dl Calcium (8.6-10.3) mg/dl Total Protein (6.0-8.3) gm/dl Albumin (3.4-5.0) gm/dl
[2023-03-29 19:30] LABS: BUN Creatinine Ratio 22.9 (10-20); Calcium 8.3 mg/dl (8.6-10.3); Est GFR (African American) 31.3 ml/min; Potassium 2.7 mmol/L (3.5-5.1)
[2023-03-30] MEDS: PIPERACILLIN/TAZOBACTAM 4.5 GM in DEXTROSE 5% MINI-B 100 ML IV SCH ×3 (00:01→16:32)
[2023-03-30] MEDS: POTASSIUM CHLORIDE 20 MEQ in LACTATED RINGER'S 1,000 ML IV SCH ×2 (06:35→14:36)
[2023-03-30 07:15] LABS: Albumin Globulin Ratio 1.1 (0.9-2); Albumin Level 2.8 gm/dl (3.4-5.0); BUN Creatinine Ratio 24.1 (10-20); Bilirubin,Total 0.8 mg/dl (0.2-1.0); Calcium 7.9 mg/dl (8.6-10.3); Creatinine Clr Calc Pharmacy 33.6 ml/min; Est GFR (African American) 37.8 ml/min; Est GFR (Non-African American) 32.6 ml/min; Globulin 2.5 gm/dl (2.5-4.0); Potassium 2.4 mmol/L (3.5-5.1); Total Protein 5.3 gm/dl (6.0-8.3)
[2023-03-30 07:18] LABS: Basophils # (auto) 0.04 K/uL (0.00-0.20); Basophils % (auto) 0.5 %; Dohle Bodies 1+; Eosinophils # (auto) 0.36 K/uL (0.00-0.50); Eosinophils % (auto) 4.2 %; Hematocrit (blood only) 27.2 % (42.0-52.0); Hemoglobin 8.9 g/dl (14.0-18.0); Immature Granulocytes # (auto) 0.14 K/uL (0.01-0.20); Immature Granulocytes % (auto) 1.6 %; Lymphocytes # (auto) 1.31 K/uL (1.20-3.40); Lymphocytes % (auto) 15.1 %; Mean Corpuscular Hemoglobin 30.9 pg (25.0-34.0); Mean Corpuscular Hgb Conc 32.7 g/dL (32.0-36.0); Mean Corpuscular Volume 94.4 fL (80.0-100.0); Mean Platelet Volume 11.6 fL (9.4-12.4); Monocytes # (auto) 0.78 K/uL (0.11-0.59); Neutrophils # (auto) 6.04 K/uL (1.40-6.50); Neutrophils % (auto) 69.6 %; Platelet Count 94 K/uL (130-400); Polychromasia 1+; RDW Coefficient of Variation 14.1 % (11.5-14.5); RDW Standard Deviation 48.2 fL (36.4-46.3); Red Blood Count 2.88 M/uL (4.70-6.10); White Blood Count 8.67 K/ul (4.8-10.8)
[2023-03-30] MEDS: METOPROLOL SUCC 25MG EXT REL TAB PO SCH (08:26)
[2023-03-30] MEDS: HEPARIN SOD 5,000 UNIT/0.5 ML VIAL SQ SCH ×2 (08:45→20:19)
[2023-03-30] MEDS: MAGNESIUM CHLORIDE W/CALCIUM 64MG DELAYED REL TAB PO SCH ×2 (08:45→20:19)
[2023-03-30] MEDS: allopurinoL 300 MG TAB PO SCH (08:45)
[2023-03-30] MEDS: INSULIN ASPART PER UNIT CHARGE SC SCH ×4 (09:13→20:34)
[2023-03-30] MEDS: POTASSIUM CHLORIDE / WTR 10 MEQ/100 ML PLCT IV SCH ×6 (09:16→23:30)
[2023-03-30] MEDS: POTASSIUM CHLORIDE 20 MEQ/15 ML UDC PO SCH ×3 (09:27→20:19)
[2023-03-30] MEDS: PANTOprazole 40 MG in SYRINGE 0 ML IV SCH (10:18)
[2023-03-30 18:52] LABS: Base Excess VBG -7.3 mEq/L; HCO3 VBG 17 mmol/L; Oxygen Saturation VBG < 60.0 %; PCO2 VBG 31 mmHg (38-50); PO2 VBG 27 mmHg; pH VBG 7.35 (7.36-7.41)
[2023-03-30 19:18] LABS: BUN Creatinine Ratio 20.2 (10-20); Creatinine Clr Calc Pharmacy 32.4 ml/min; Est GFR (African American) 36.2 ml/min; Est GFR (Non-African American) 31.2 ml/min; Potassium 2.4 mmol/L (3.5-5.1)
[2023-03-30] MEDS ORDERED: POTASSIUM CHLORIDE CRTAB 20 MEQ TABCR PO STA (19:26)
[2023-03-30 19:54] LABS: Magnesium 1.3 mg/dl (1.7-2.4); Phosphorus 2.1 mg/dl (2.5-4.9)
[2023-03-30] MEDS ORDERED: POTASSIUM PHOS 3 MMOL/1 ML INFUSION IV STA (21:09)
--- NOTE | 2023-03-30 21:13 | Hospitalist Progress Note ---
Date of Service March 30, 2023 Assessment & Plan (1) Severe sepsis: Plan: suspected source - intra-abdominal ?ischemic although he has chronic Cece's he has severe abd distension with pain (generalized) along with foul-smelling stool and report of diarrhea at the [facility] CT a/p with liquid stool throughout the colon stool Biofire negative c diff x 2 both negative respiratory Biofire negative cxr without obvious pneumonia u/a mildly dirty but no bacteria or WBCs on microscopy - this was not sent for culture and urine samples are thrown away at 24 hours, repeat sample sent 03/27 and is with low colony count growth Blood cultures negative at 48 hours Continue zosyn empirically to cover for ischemic colitis, procalcitonin is now starting to downtrend Continue IV fluids with lactated Ringer's while oral intake remains negligible. Patient's appetite improved and is tolerating full liquids. Continue to follow Remains with significant diarrhea, this is starting to improve. Hypokalemia persistent overnight as noted (2) Acute diarrhea: Plan: foul-smelling stool stool biofire negative c diff x 2 both negative Suspected intestinal/colonic ischemia given his severe pain and tenderness on abdominal exam by prior provider - currently abdomen remains distended but nontender Monitor closely for worsening gastrointestinal symptoms at white blood count as diet is increased given concern for ischemia. Mesenteric ultrasound today performed given continued elevated creatinine however was essentially nonrevealing given overlying bowel gas. Could consider CT angiogram although given he is not a surgical candidate and would need to give intravenous contrast doubtful benefit would not outweigh any risk. Continues to have creatinine above baseline 03/30 Patient remains persistently hypokalemic with diarrhea, but which is starting to improve. Suspect total body deficit of potassium superimposed on losses with diarrhea. Continue to replete as needed, repeat BMP this afternoon. Hopefully this will improve and stabilized with repletion and assess diarrhea improves. Required 80 meq of IV potassium in addition to LR with potassium in additon to 40 meq PO TID. also required replacement of mag and phos. (3) Elevated lactic acid level: Plan: Anion gap mostly closed with lactate level resolved, therefore suspect his anion gap was mostly due to elevated lactate from hypotension causing poor organ perfusion +/- ischemic colitis. 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 Uptitrate as able Blood pressure and heart rate tolerating 03/28 and mildly hypertensive, in creased to 75mg (7) BPH with obstruction/lower urinary tract symptoms: Plan: hold flomax cont fung (8) Acute metabolic encephalopathy: Plan: 2nd to severe sepsis, acidosis, etc supportive care Improving. 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 HbA1c 6.8 03/25 (14) Status post placement of cardiac pacemaker: Plan: placed for history of heart block Plan VTE prophylaxis - heparin 5000 units SQ BID Diet - clear liquids started 03/26, advance per surgical recommendations. Fulls anticipated today Disposition - continued admission to PCU Admission and Anticipated Discharge Date Admission Date: March 25, 2023 Subjective 78 yo male reports no new symptoms. Patient did not have a bowel movement today. Review of Systems Review of Systems: All systems reviewed & are unremarkable except as noted in HPI & below Physical Exam Physical Exam: General: A&O to name and place. NAD. Cooperative. HEENT: Atraumatic, normocephalic. vision/hearing grossly intact Pulm: CTAB A&P. -wheezes, -rales, -rhonchi. Symmetrical chest rise. No increased work of breathing. No respiratory distress. Cardiac: RRR, -mrg. Radial pulses intact and symmetrical. Abdominal: Distended but soft and nontender Results & Data Results & Data Vital Signs (Past 12 Hours) Vital Signs Temp Pulse Resp BP BP Pulse Ox O2 Del Method 03/30/23 19:47 36.7 C 63 18 150/79 H 97 Room Air 03/30/23 16:00 36.7 C 80 21 161/82 H 97 Room Air 03/30/23 12:01 36.6 C 61 18 170/71 H 98 Room Air PG Care Time/CCT Total # of Minutes Spent Total Time Spent with Patient: Total time spent is greater than 50% in coordination of care (as documented) at patient's floor/unit and/or counseling patient: Coding Level of Care Code 48157 SUB INP/OBS CARE 3/50MIN Diagnoses Severe sepsis A41.9; R65.20 Acute diarrhea R19.7 Elevated lactic acid level R79.89 Pseudo-obstruction of colon K59.81 Acute kidney injury superimposed on chronic kidney disease N17.9; N18.9 Hypertension, unspecified type I10 Hypertension type: unspecified BPH with obstruction/lower urinary tract symptoms N40.1; N13.8 Acute metabolic encephalopathy G93.41 Thrombocytopenia D69.6 Normocytic anemia D64.9 Hypertrophic cardiomyopathy I42.2 [place] syndrome K59.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
[2023-03-30] MEDS ORDERED: POTASSIUM PHOSPHATE 15 MMOL in SODIUM CHLORIDE 0.9% 250 ML IV ONE (21:30)
[2023-03-30] MEDS ORDERED: MAGNESIUM SULFATE / D5W 1 GM/100 ML BAG IV ONE (21:49)
[2023-03-30] MEDS: MAGNESIUM SULFATE / D5W 1 GM/100 ML BAG IV SCH ×2 (22:07→23:45)
[2023-03-31] MEDS: POTASSIUM CHLORIDE / WTR 10 MEQ/100 ML PLCT IV SCH ×6 (00:25→12:39)
[2023-03-31] MEDS: PIPERACILLIN/TAZOBACTAM 4.5 GM in DEXTROSE 5% MINI-B 100 ML IV SCH ×3 (00:44→16:43)
[2023-03-31] MEDS: POTASSIUM CHLORIDE 20 MEQ in LACTATED RINGER'S 1,000 ML IV SCH ×3 (04:53→17:15)
[2023-03-31 07:11] LABS: Hematocrit (blood only) 26.8 % (42.0-52.0); Hemoglobin 8.7 g/dl (14.0-18.0); Mean Corpuscular Hemoglobin 30.6 pg (25.0-34.0); Mean Corpuscular Hgb Conc 32.5 g/dL (32.0-36.0); Mean Corpuscular Volume 94.4 fL (80.0-100.0); Mean Platelet Volume 11.4 fL (9.4-12.4); Platelet Count 108 K/uL (130-400); RDW Coefficient of Variation 14.3 % (11.5-14.5); RDW Standard Deviation 48.5 fL (36.4-46.3); Red Blood Count 2.84 M/uL (4.70-6.10); White Blood Count 7.33 K/ul (4.8-10.8)
[2023-03-31 07:36] LABS: C Reactive Protein 1.45 mg/dl (0-0.5); Calcium 7.8 mg/dl (8.6-10.3); Est GFR (African American) 39.5 ml/min; Est GFR (Non-African American) 34.1 ml/min; Magnesium 1.5 mg/dl (1.7-2.4); Phosphorus 2.4 mg/dl (2.5-4.9); Potassium 3.1 mmol/L (3.5-5.1)
[2023-03-31] MEDS ORDERED: POTASSIUM PHOS 3 MMOL/1 ML INFUSION IV STA (07:52)
[2023-03-31] MEDS ORDERED: POTASSIUM PHOSPHATE 15 MMOL in SODIUM CHLORIDE 0.9% 250 ML IV ONE (08:00)
[2023-03-31] MEDS: POTASSIUM CHLORIDE 20 MEQ/15 ML UDC PO SCH ×3 (08:06→21:33)
[2023-03-31] MEDS: HEPARIN SOD 5,000 UNIT/0.5 ML VIAL SQ SCH ×2 (08:06→21:34)
[2023-03-31] MEDS: METOPROLOL SUCC 25MG EXT REL TAB PO SCH (08:08)
[2023-03-31] MEDS: MAGNESIUM SULFATE / D5W 1 GM/100 ML BAG IV SCH ×3 (08:08→22:26)
[2023-03-31] MEDS: MAGNESIUM CHLORIDE W/CALCIUM 64MG DELAYED REL TAB PO SCH ×2 (08:08→21:33)
[2023-03-31] MEDS: allopurinoL 300 MG TAB PO SCH (08:09)
[2023-03-31] MEDS: INSULIN ASPART PER UNIT CHARGE SC SCH ×4 (08:10→21:36)
--- NOTE | 2023-03-31 11:48 | XRay Report ---
[facility] CLINICAL HISTORY: Cece syndrome. FINDINGS: 2 AP, portable, supine abdominal radiograph*compared to study dated 03/25/2023 and correlat ed with abdominal CT dated 03/24/2023. There is persistent gaseous distention of the colon which stacey ures up to 7 cm in diameter. There is only mild gaseous distention of the small bowel loops. There is no radiographic evidence of high-grade small bowel obstruction. No evidence of intraperitoneal free air is seen on these supine images. There are no abnormal abdominal calcifications. The enteric tube has been from previous. The skeletal structures are osteopenic and appear intact. There is moderate l umbosacral spondylosis. The heart is enlarged and pacemaker leads are in place. IMPRESSION: 1. There is persistent gaseous distention of the colon. This could represent colonic pseudoobstructio n or ileus as clinically suspected. A distal colonic obstruction would be impossible to exclude, and clinical correlation will be required. 2. There is only mild gaseous distention of the small bowel loops. Electronically signed by: Nasim Clark M.D. 03/31/2023 11:46 AM
[2023-03-31] MEDS: PANTOprazole 40 MG in SYRINGE 0 ML IV SCH (12:37)
[2023-03-31 19:58] LABS: BUN Creatinine Ratio 17.3 (10-20); Calcium 7.9 mg/dl (8.6-10.3); Creatinine Clr Calc Pharmacy 35.9 ml/min; Est GFR (African American) 40.9 ml/min; Est GFR (Non-African American) 35.3 ml/min; Magnesium 1.7 mg/dl (1.7-2.4); Phosphorus 2.8 mg/dl (2.5-4.9); Potassium 4.1 mmol/L (3.5-5.1)
--- NOTE | 2023-03-31 21:40 | Hospitalist Progress Note ---
Date of Service March 31, 2023 Assessment & Plan (1) Severe sepsis: Plan: suspected source - intra-abdominal ?ischemic although he has chronic Cece's he has severe abd distension with pain (generalized) along with foul-smelling stool and report of diarrhea at the [facility] CT a/p with liquid stool throughout the colon stool Biofire negative c diff x 2 both negative respiratory Biofire negative cxr without obvious pneumonia u/a mildly dirty but no bacteria or WBCs on microscopy - this was not sent for culture and urine samples are thrown away at 24 hours, repeat sample sent 03/27 and is with low colony count growth Blood cultures negative at 48 hours Continue zosyn empirically to cover for ischemic colitis, procalcitonin is now starting to downtrend Continue IV fluids with lactated Ringer's while oral intake remains negligible. Patient's appetite improved and is tolerating full liquids. Continue to follow Remains with significant diarrhea, this is starting to improve. Hypokalemia is finally improving as well as hypomagnesemia. (2) Acute diarrhea: Plan: foul-smelling stool stool biofire negative c diff x 2 both negative Suspected intestinal/colonic ischemia given his severe pain and tenderness on abdominal exam by prior provider - currently abdomen remains distended but nontender Monitor closely for worsening gastrointestinal symptoms at white blood count as diet is increased given concern for ischemia. Mesenteric ultrasound today performed given continued elevated creatinine however was essentially nonrevealing given overlying bowel gas. Could consider CT angiogram although given he is not a surgical candidate and would need to give intravenous contrast doubtful benefit would not outweigh any risk. Continues to have creatinine above baseline 03/30 Patient remains persistently hypokalemic with diarrhea, but which is starting to improve. Suspect total body deficit of potassium superimposed on losses with diarrhea. Continue to replete as needed, repeat BMP this afternoon. Hopefully this will improve and stabilized with repletion and assess diarrhea improves. Replaced electrolytes on 03/31 (3) Elevated lactic acid level: Plan: Anion gap mostly closed with lactate level resolved, therefore suspect his anion gap was mostly due to elevated lactate from hypotension causing poor organ perfusion +/- ischemic colitis. 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 Uptitrate as able Blood pressure and heart rate tolerating 03/28 and mildly hypertensive, increased to 75mg (7) BPH with obstruction/lower urinary tract symptoms: Plan: hold flomax cont fung (8) Acute metabolic encephalopathy: Plan: 2nd to severe sepsis, acidosis, etc supportive care Improving. 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 HbA1c 6.8 03/25 (14) Status post placement of cardiac pacemaker: Plan: placed for history of heart block Plan VTE prophylaxis - heparin 5000 units SQ BID Diet - clear liquids started 03/26, advance per surgical recommendations. Fulls anticipated today Disposition - continued admission to PCU Admission and Anticipated Discharge Date Admission Date: March 25, 2023 Subjective 78 yo male reports having onlyu 2 water BM this morning. Review of Systems Review of Systems: All systems reviewed & are unremarkable except as noted in HPI & below Physical Exam Physical Exam: General: A&O to name and place. NAD. Cooperative. HEENT: Atraumatic, normocephalic. vision/hearing grossly intact Pulm: CTAB A&P. -wheezes, -rales, -rhonchi. Symmetrical chest rise. No increased work of breathing. No respiratory distress. Cardiac: RRR, -mrg. Radial pulses intact and symmetrical. Abdominal: Distended but soft and nontender Results & Data Results & Data Vital Signs (Past 12 Hours) Vital Signs Temp Pulse Resp BP BP Pulse Ox O2 Del Method 03/31/23 19:00 36.5 C 72 20 146/80 H 96 Room Air 03/31/23 16:01 36.7 C 62 20 162/85 H 97 Room Air 03/31/23 11:43 36.8 C 81 19 154/77 H 96 Room Air PG Care Time/CCT Total # of Minutes Spent Total Time Spent with Patient: Total time spent is greater than 50% in coordination of care (as documented) at patient's floor/unit and/or counseling patient: Coding Level of Care Code 85004 SUB INP/OBS CARE 2/35MIN Diagnoses Severe sepsis A41.9; R65.20 Acute diarrhea R19.7 Elevated lactic acid level R79.89 Pseudo-obstruction of colon K59.81 Acute kidney injury superimposed on chronic kidney disease N17.9; N18.9 Hypertension, unspecified type I10 Hypertension type: unspecified BPH with obstruction/lower urinary tract symptoms N40.1; N13.8 Acute metabolic encephalopathy G93.41 Thrombocytopenia D69.6 Normocytic anemia D64.9 Hypertrophic cardiomyopathy I42.2 Cece syndrome K59.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
[2023-04-01] MEDS: PIPERACILLIN/TAZOBACTAM 4.5 GM in DEXTROSE 5% MINI-B 100 ML IV SCH ×3 (01:26→16:27)
[2023-04-01] MEDS: MAGNESIUM SULFATE / D5W 1 GM/100 ML BAG IV SCH (01:26)
[2023-04-01] MEDS: POTASSIUM CHLORIDE 20 MEQ in LACTATED RINGER'S 1,000 ML IV SCH ×3 (04:35→18:55)
[2023-04-01 06:00] LABS: Hematocrit (blood only) 27.1 % (42.0-52.0); Hemoglobin 8.8 g/dl (14.0-18.0); Mean Corpuscular Hgb Conc 32.5 g/dL (32.0-36.0); Mean Corpuscular Volume 95.4 fL (80.0-100.0); Mean Platelet Volume 11.4 fL (9.4-12.4); Platelet Count 132 K/uL (130-400); RDW Coefficient of Variation 14.6 % (11.5-14.5); RDW Standard Deviation 51.2 fL (36.4-46.3); Red Blood Count 2.84 M/uL (4.70-6.10); White Blood Count 8.32 K/ul (4.8-10.8)
[2023-04-01 06:19] LABS: BUN Creatinine Ratio 15.4 (10-20); C Reactive Protein 1.18 mg/dl (0-0.5); Calcium 7.9 mg/dl (8.6-10.3); Creatinine Clr Calc Pharmacy 36.8 ml/min; Est GFR (Non-African American) 36.2 ml/min; Magnesium 1.9 mg/dl (1.7-2.4); Phosphorus 2.4 mg/dl (2.5-4.9)
[2023-04-01] MEDS: METOPROLOL SUCC 25MG EXT REL TAB PO SCH (08:51)
[2023-04-01] MEDS: allopurinoL 300 MG TAB PO SCH (08:51)
[2023-04-01] MEDS: HEPARIN SOD 5,000 UNIT/0.5 ML VIAL SQ SCH ×2 (08:51→20:37)
[2023-04-01] MEDS: POTASSIUM CHLORIDE 20 MEQ/15 ML UDC PO SCH ×3 (08:52→20:38)
[2023-04-01] MEDS: MAGNESIUM CHLORIDE W/CALCIUM 64MG DELAYED REL TAB PO SCH ×2 (08:52→20:38)
[2023-04-01] MEDS: INSULIN ASPART PER UNIT CHARGE SC SCH ×4 (08:54→20:37)
[2023-04-01 10:50] LABS: HCO3 VBG 16 mmol/L; Oxygen Saturation VBG 72.4 %; PCO2 VBG 28 mmHg (38-50); PO2 VBG 43 mmHg; pH VBG 7.35 (7.36-7.41)
[2023-04-01] MEDS: PANTOprazole 40 MG in SYRINGE 0 ML IV SCH (11:58)
[2023-04-01] MEDS: POT PHOSPHATE MONOBASIC W/ SOD TAB PO SCH ×3 (12:48→20:38)
[2023-04-01] MEDS: MoRPHine SULFATE 2 MG/ML CARP IV PRN (18:20)
--- NOTE | 2023-04-01 18:28 | Hospitalist Progress Note ---
Date of Service April 01, 2023 Assessment & Plan (1) Severe sepsis: Plan: suspected source - intra-abdominal ?ischemic although he has chronic Cece's he has severe abd distension with pain (generalized) along with foul-smelling stool and [facility] a/p with liquid stool throughout the colon stool Biofire negative c diff x 2 both negative respiratory Biofire negative cxr without obvious pneumonia u/a mildly dirty but no bacteria or WBCs on microscopy - this was not sent for culture and urine samples are thrown away at 24 hours, repeat sample sent 03/27 and is with low colony count growth Blood cultures negative at 48 hours Continue zosyn empirically to cover for ischemic colitis, procalcitonin is now starting to downtrend Continue IV fluids with lactated Ringer's while oral intake remains negligible. Patient's appetite improved and is tolerating full liquids. Continue to follow Remains with significant diarrhea, this is starting to improve. Hypokalemia is finally improving as well as hypomagnesemia. (2) Acute diarrhea: Plan: foul-smelling stool stool biofire negative c diff x 2 both negative Suspected intestinal/colonic ischemia given his severe pain and tenderness on abdominal exam by prior provider - currently abdomen remains distended but nontender Monitor closely for worsening gastrointestinal symptoms at white blood count as diet is increased given concern for ischemia. Mesenteric ultrasound today performed given continued elevated creatinine however was essentially nonrevealing given overlying bowel gas. Could consider CT angiogram although given he is not a surgical candidate and would need to give intravenous contrast doubtful benefit would not outweigh any risk. Continues to have creatinine above baseline 03/30 Patient remains persistently hypokalemic with diarrhea, but which is starting to improve. Suspect total body deficit of potassium superimposed on losses with diarrhea. Continue to replete as needed, repeat BMP this afternoon. Hopefully this will improve and stabilized with repletion and assess diarrhea improves. Replaced electrolytes on 03/31 will stop IVF on 04/01 recheck blood work in am (3) Elevated lactic acid level: Plan: Anion gap mostly closed with lactate level resolved, therefore suspect his anion gap was mostly due to elevated lactate from hypotension causing poor organ perfusion +/- ischemic colitis. (4) Pseudo-obstruction of colon: Plan: chronic [place]'s previously seen by both GI & gen surg for this on prior admissions cont broad-spectrum IV abx (zosyn) Appreciate GI and surgical consultations -currently tolerating full liquid and pending further advancement (5) Acute kidney injury superimposed on chronic kidney disease: Plan: baseline Cr ~1.4 (02/2023) Elevated greater than 3 during admission Continues to improve not yet normalized, likely with sepsis induced ATN (6) Hypertension: Plan: - Metoprolol restarted 50 mg daily, home dose is 200 mg daily. Uptitrate as able Blood pressure and heart rate tolerating 03/28 and mildly hypertensive, increased to 75mg (7) BPH with obstruction/lower urinary tract symptoms: Plan: hold flomax cont fung (8) Acute metabolic encephalopathy: Plan: 2nd to severe sepsis, acidosis, etc supportive care Improving. 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 HbA1c 6.8 03/25 (14) Status post placement of cardiac pacemaker: Plan: placed for history of heart block Plan VTE prophylaxis - heparin 5000 units SQ BID Diet - clear liquids started 03/26, advance per surgical recommendations. Fulls anticipated today Disposition - continued admission to PCU Admission and Anticipated Discharge Date Admission Date: March 25, 2023 Subjective Patient reports no new symptoms. Physical Exam Physical Exam: General: A&O to name and place. NAD. Cooperative. HEENT: Atraumatic, normocephalic. vision/hearing grossly intact Pulm: CTAB A&P. -wheezes, -rales, -rhonchi. Symmetrical chest rise. No increased work of breathing. No respiratory distress. Cardiac: RRR, -mrg. Radial pulses intact and symmetrical. Abdominal: Distended but soft and nontender Results & Data Results & Data Vital Signs (Past 12 Hours) Vital Signs Temp Pulse Pulse Resp BP BP Pulse Ox 04/01/23 16:00 36.3 C L 80 80 H 167/87 H 98 04/01/23 11:03 36.3 C L 60 19 148/92 H 98 04/01/23 08:04 80 04/01/23 08:04 04/01/23 07:56 36.5 C 65 19 162/84 H 94 O2 Del Method 04/01/23 16:00 Room Air 04/01/23 11:03 Room Air 04/01/23 08:04 04/01/23 08:04 Room Air 04/01/23 07:56 Room Air PG Care Time/CCT Total # of Minutes Spent Total Time Spent with Patient: Total time spent is greater than 50% in coordination of care (as documented) at patient's floor/unit and/or counseling patient: Coding Level of Care Code 06011 SUB INP/OBS CARE 2MIN Diagnoses Severe sepsis A41.9; R65.20 Acute diarrhea R19.7 Elevated lactic acid level R79.89 Pseudo-obstruction of colon K59.81 Acute kidney injury superimposed on chronic kidney disease N17.9; N18.9 Hypertension, unspecified type I10 Hypertension type: unspecified BPH with obstruction/lower urinary tract symptoms N40.1; N13.8 Acute metabolic encephalopathy G93.41 Thrombocytopenia D69.6 Normocytic anemia D64.9 Hypertrophic cardiomyopathy I42.2 Cece syndrome K59.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
[2023-04-02] MEDS: PIPERACILLIN/TAZOBACTAM 4.5 GM in DEXTROSE 5% MINI-B 100 ML IV SCH ×3 (00:09→16:45)
[2023-04-02 05:47] LABS: Hematocrit (blood only) 25.8 % (42.0-52.0); Hemoglobin 8.4 g/dl (14.0-18.0); Mean Corpuscular Hemoglobin 30.8 pg (25.0-34.0); Mean Corpuscular Hgb Conc 32.6 g/dL (32.0-36.0); Mean Corpuscular Volume 94.5 fL (80.0-100.0); Mean Platelet Volume 11.2 fL (9.4-12.4); Platelet Count 147 K/uL (130-400); RDW Coefficient of Variation 15.1 % (11.5-14.5); RDW Standard Deviation 51.7 fL (36.4-46.3); Red Blood Count 2.73 M/uL (4.70-6.10); White Blood Count 6.43 K/ul (4.8-10.8)
[2023-04-02 06:03] LABS: Albumin Level 2.7 gm/dl (3.4-5.0); BUN Creatinine Ratio 13.9 (10-20); Bilirubin,Total 0.6 mg/dl (0.2-1.0); C Reactive Protein 1.2 mg/dl (0-0.5); Calcium 7.6 mg/dl (8.6-10.3); Creatinine Clr Calc Pharmacy 41.9 ml/min; Est GFR (African American) 47.5 ml/min; Globulin 2.6 gm/dl (2.5-4.0); Potassium 3.4 mmol/L (3.5-5.1); Total Protein 5.3 gm/dl (6.0-8.3)
[2023-04-02] MEDS: allopurinoL 300 MG TAB PO SCH (08:54)
[2023-04-02] MEDS: METOPROLOL SUCC 25MG EXT REL TAB PO SCH (08:54)
[2023-04-02] MEDS: INSULIN ASPART PER UNIT CHARGE SC SCH ×4 (08:54→20:36)
[2023-04-02] MEDS: POTASSIUM CHLORIDE 20 MEQ/15 ML UDC PO SCH ×3 (08:54→20:26)
[2023-04-02] MEDS: POT PHOSPHATE MONOBASIC W/ SOD TAB PO SCH ×4 (08:54→20:26)
[2023-04-02] MEDS: HEPARIN SOD 5,000 UNIT/0.5 ML VIAL SQ SCH ×2 (08:55→20:25)
[2023-04-02] MEDS: MAGNESIUM CHLORIDE W/CALCIUM 64MG DELAYED REL TAB PO SCH ×2 (08:55→20:37)
[2023-04-02] MEDS: PANTOprazole 40 MG in SYRINGE 0 ML IV SCH (09:59)
--- NOTE | 2023-04-02 11:15 | Hospitalist Progress Note ---
Date of Service April 02, 2023 Assessment & Plan (1) Severe sepsis: Plan: possible Acute ischemic colitis suspected source - intra-abdominal ?ischemic although he has chronic [place]'s he has severe abd distension with pain (generalized) along with foul-smelling stool and [facility] a/p with liquid stool throughout the colon stool Biofire negative c diff x 2 both negative respiratory Biofire negative cxr without obvious pneumonia u/a mildly dirty but no bacteria or WBCs on microscopy - this was not sent for culture and urine samples are thrown away at 24 hours, repeat sample sent 03/27 and is with low colony count growth Blood cultures: negative. Continue zosyn empirically to cover for ischemic colitis, procalcitonin was extremely elevated at 59 and is down to 1. Continue IV fluids with lactated Ringer's while oral intake remains negligible. Patient's appetite improved and has been tolerating full liquids for a few days now. Diarrhea has been improving. Inflammatory markers and procalcitonin have been improving. will advance diet. (2) Acute diarrhea: Plan: foul-smelling stool stool biofire negative c diff x 2 both negative Suspected intestinal/colonic ischemia given his severe pain and tenderness on abdominal exam by prior provider - currently abdomen remains distended but nontender Monitor closely for worsening gastrointestinal symptoms at white blood count as diet is increased given concern for ischemia. Mesenteric ultrasound today performed given continued elevated creatinine however was essentially nonrevealing given overlying bowel gas. Could consider CT angiogram although given he is not a surgical candidate and would need to give intravenous contrast doubtful benefit would not outweigh any risk. Continues to have creatinine above baseline 03/30 Patient remains persistently hypokalemic with diarrhea, but which is starting to improve. Suspect total body deficit of potassium superimposed on losses with di arrhea. By aggressively checking bis BMP and receving potassium in the morning and afternoon, his potassium has appeared to have finally normalized. Acute metabolic acidosis VBG showing respiratory compensation, BRIANNA showing improvement however, Bicarb contiues to decrease on bmp. WIll replace orally. (3) Elevated lactic acid level: Plan: Anion gap mostly closed with lactate level resolved, therefore suspect his anion gap was mostly due to elevated lactate from hypotension causing poor organ perfusion +/- ischemic colitis. (4) Pseudo-obstruction of colon: Plan: chronic [place]'s previously seen by both GI & gen surg for this on prior admissions cont broad-spectrum IV abx (zosyn) Appreciate GI and surgical consultations -will advance to low fiber diet/ (5) Acute kidney injury superimposed on chronic kidney disease: Plan: baseline Cr ~1.4 (02/2023) Elevated greater than 3 during admission Continues to improve not yet normalized, likely with sepsis induced ATN (6) Hypertension: Plan: - Metoprolol restarted 50 mg daily, home dose is 200 mg daily. Uptitrate as able Blood pressure and heart rate tolerating 03/28 and mildly hypertensive, increased to 75mg (7) BPH with obstruction/lower urinary tract symptoms: Plan: hold flomax cont fung (8) Acute metabolic encephalopathy: Plan: 2nd to severe sepsis, acidosis, etc supportive care Improving. 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 HbA1c 6.8 03/25 (14) Status post placement of cardiac pacemaker: Plan: placed for history of heart block Plan VTE prophylaxis - heparin 5000 units SQ BID Disposition - continued admission to PCU Admission and Anticipated Discharge Date Admission Date: March 25, 2023 Subjective Nurse reports patient is more anxious today. Review of Systems Review of Systems: All systems reviewed & are unremarkable except as noted in HPI & below Physical Exam Physical Exam: General: A&O to name and place. NAD. Cooperative. HEENT: Atraumatic, normocephalic. vision/hearing grossly intact Pulm: CTAB A&P. -wheezes, -rales, -rhonchi. Symmetrical chest rise. No increased work of breathing. No respiratory distress. Cardiac: RRR, -mrg. Radial pulses intact and symmetrical. Abdominal: Distended but soft and nontender Results & Data Results & Data Vital Signs (Past 12 Hours) Vital Signs Temp Pulse Pulse Resp BP Pulse Ox O2 Del Method 04/02/23 07:48 36.7 C 80 19 174/98 H 97 Room Air 04/02/23 07:44 80 04/02/23 07:44 Room Air 04/02/23 03:00 37.0 C 80 20 157/96 H 96 Room Air 04/02/23 00:01 57 L PG Care Time/CCT Total # of Minutes Spent Total Time Spent with Patient: Total time spent is greater than 50% in coordination of care (as documented) at patient's floor/unit and/or counseling patient: Coding Level of Care Code 63701 SUB INP/OBS CARE 3/50MIN Diagnoses Severe sepsis A41.9; R65.20 Acute diarrhea R19.7 Elevated lactic acid level R79.89 Pseudo-obstruction of colon K59.81 Acute kidney injury superimposed on chronic kidney disease N17.9; N18.9 Hypertension, unspecified type I10 Hypertension type: unspecified BPH with obstruction/lower urinary tract symptoms N40.1; N13.8 Acute metabolic encephalopathy G93.41 Thrombocytopenia D69.6 Normocytic anemia D64.9 Hypertrophic cardiomyopathy I42.2 Cece syndrome K59.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
[2023-04-02] MEDS: SODIUM BICARBONATE 650 MG TAB PO SCH ×3 (12:05→20:26)
[2023-04-03] MEDS: PIPERACILLIN/TAZOBACTAM 4.5 GM in DEXTROSE 5% MINI-B 100 ML IV SCH ×2 (00:24→07:37)
[2023-04-03 06:37] LABS: Hematocrit (blood only) 25.8 % (42.0-52.0); Hemoglobin 8.7 g/dl (14.0-18.0); Mean Corpuscular Hemoglobin 31.6 pg (25.0-34.0); Mean Corpuscular Hgb Conc 33.7 g/dL (32.0-36.0); Mean Corpuscular Volume 93.8 fL (80.0-100.0); Mean Platelet Volume 10.8 fL (9.4-12.4); Platelet Count 178 K/uL (130-400); RDW Coefficient of Variation 14.8 % (11.5-14.5); RDW Standard Deviation 50.3 fL (36.4-46.3); Red Blood Count 2.75 M/uL (4.70-6.10); White Blood Count 6.21 K/ul (4.8-10.8)
[2023-04-03 07:12] LABS: C Reactive Protein 1.52 mg/dl (0-0.5); Calcium 7.9 mg/dl (8.6-10.3); Creatinine Clr Calc Pharmacy 39.7 ml/min; Est GFR (African American) 44.4 ml/min; Est GFR (Non-African American) 38.3 ml/min; Magnesium 1.3 mg/dl (1.7-2.4); Phosphorus 3.2 mg/dl (2.5-4.9); Potassium 3.8 mmol/L (3.5-5.1)
[2023-04-03] MEDS: HEPARIN SOD 5,000 UNIT/0.5 ML VIAL SQ SCH ×2 (07:38→21:04)
[2023-04-03] MEDS: SODIUM BICARBONATE 650 MG TAB PO SCH ×3 (07:38→21:07)
[2023-04-03] MEDS: METOPROLOL SUCC 25MG EXT REL TAB PO SCH (07:38)
[2023-04-03] MEDS: MAGNESIUM CHLORIDE W/CALCIUM 64MG DELAYED REL TAB PO SCH ×2 (07:39→21:05)
[2023-04-03] MEDS: allopurinoL 300 MG TAB PO SCH (07:39)
[2023-04-03] MEDS: POT PHOSPHATE MONOBASIC W/ SOD TAB PO SCH (07:40)
[2023-04-03] MEDS: POTASSIUM CHLORIDE 20 MEQ/15 ML UDC PO SCH (07:40)
[2023-04-03] MEDS: INSULIN ASPART PER UNIT CHARGE SC SCH ×4 (08:45→21:02)
[2023-04-03] MEDS: PANTOprazole 40 MG in SYRINGE 0 ML IV SCH (11:35)
[2023-04-03] MEDS: MAGNESIUM SULFATE / D5W 1 GM/100 ML BAG IV SCH ×2 (11:36→14:24)
[2023-04-03] MEDS ORDERED: FUROSEMIDE 20 MG TAB PO ONE (11:51)
--- NOTE | 2023-04-03 11:53 | Hospitalist Progress Note ---
Date of Service April 03, 2023 Assessment & Plan (1) Severe sepsis: Plan: suspected source - intra-abdominal ischemic colitis at time of admission ?? although he has chronic Cece's he had severe abd distension with generalized abd pain along with foul-smelling stool at time of admission CT a/p with liquid stool throughout the colon upon admission as well stool Biofire negative c diff x 2 negative respiratory Biofire negative cxr without obvious pneumonia u/a mildly dirty but no bacteria or WBCs on microscopy blood cultures were negative has completed a course of zosyn since time of admission (about 10-11 days) will stop zosyn give 3 more days of augmentin then stop all abx (2) Elevated lactic acid level: Plan: severe at time of admission 2nd to #1 resolved multifactorial causes - massive dehydration, severe sepsis, suspected intestinal ischemia now with hyperchloremic met acidosis likely from diarrhea cont Na Bicarb supplementation (3) Acute diarrhea: Plan: foul-smelling stool at time of admission stool biofire negative c diff x 2 both negative respiratory biofire including COVID negative intestinal/colonic ischemia was suspected as cause seen by gen surg and GI earlier in the stay - conservative, medical management was advised with antibiotics, etc he is now back to low fiber diet (4) Acute kidney injury superimposed on chronic kidney disease: Plan: baseline Cr ~1.4 (02/2023) likely had sepsis associated ATN no signs of obstruction on CT at time of admission resolved Cr continues to improve daily BMP am (5) Hypertrophic cardiomyopathy: Plan: [place] [facility] [place] back [place] meto succ albeit at lower dose than typical for him received COPIOUS hydration earlier in the stay admission weight was 86kg now 99 kg has edema of legs and severe scrotal edema lasix 20mg po x 1 assess response to such tomorrow (6) CHB (complete heart block): Plan: s/p pacemaker placement in the past (7) Chronic kidney disease, stage III (moderate): Plan: baseline Cr ~1.4 baseline CrCl about 45 superimposed BRIANNA -- improving (8) Pseudo-obstruction of colon: Plan: chronic Cece's previously seen by both GI & gen surg for this on prior admissions see #1 above (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, managed as type 2: Plan: BSGs ac/hs novolog SSI (11) Status post placement of cardiac pacemaker: (12) Hypertension: Plan: meto succ has been resumed (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: Plan: resume flomax cont fung (14) Acute metabolic encephalopathy: Plan: 2nd to severe sepsis, acidosis, etc resolved nearly back to baseline (15) Thrombocytopenia: Plan: likely due to sepsis resolved (16) DVT prophylaxis: Plan: heparin 5000 BID (17) Hypomagnesemia: Plan: severe 2nd to poor oral intake 2nd to diarrhea/GI losses mag sulfate 3gm IV x 1 now repeat mag level am Plan updated pt's brother Miguel today by phone Miguel mentions that for months Christopher has refused to participate in activities at the SNF keeps to himself hardly has conversation when he visits with his brother etc due to poor appetite and ?depression will start remeron 7.5mg HS Admission and Anticipated Discharge Date Admission Date: March 25, 2023 Subjective no events overnight moving his bowels no abd pain mentating much better in comparison to earlier in the hospital stay his appetite remains very poor eating very little or drinking per staff he states "can you get some chicken nuggets for me?" denies any dyspnea tele overnight stable Review of Systems Review of Systems: cv - no chest pain pulm - no dyspnea or cough GI - no nausea or emesis Physical Exam Physical Exam: gen - looks much better in comparison to my previous visits 7+ days ago, more talkative, NAD mouth - MMM, no lesions, no thrush neck - no JVD heart - RRR, s1 s2, 1/6 MANOLO LSB lungs - CTA b/l; no rales or wheezes abd - mod distension (baseline); BS+, nontender; no HSM ext - 1-2+ edema b/l, pulses 2+ b/l - scrotum - SEVERE edema with buried penile head; no redness or signs of cellulitis; moderate discomfort with palpating the scrotal but no mass neuro - contractures of arms Results & Data Results & Data Vital Signs (Past 12 Hours) Vital Signs Temp Pulse Resp BP BP Pulse Ox O2 Del Method 04/03/23 11:33 36.7 C 80 19 150/79 H 96 Room Air 04/03/23 08:24 Room Air 04/03/23 07:54 36.4 C L 57 L 18 162/83 H 96 Room Air 04/03/23 02:45 37.1 C 80 18 160/88 H 96 Room Air Laboratory Results Laboratory Results - last 24 hr 04/02/23 04/02/23 04/02/23 12:05 16:16 20:24 WBC RBC Hgb Hct MCV MCH MCHC RDW Std Deviation RDW Coeff of Nona Plt Count MPV Sodium Potassium Chloride Carbon Dioxide Anion Gap BUN Creatinine Est Cr Clr Drug Dosing Est GFR ( Amer) Est GFR (Non-Af Amer) BUN/Creatinine Ratio Glucose POC Glucose 153 H 115 H 138 H Calcium Phosphorus Magnesium C-Reactive Protein Procalcitonin 04/03/23 04/03/23 06:18 07:57 WBC 6.21 RBC 2.75 L Hgb 8.7 L Hct 25.8 L MCV 93.8 MCH 31.6 MCHC 33.7 RDW Std Deviation 50.3 H RDW Coeff of Nona 14.8 H Plt Count 178 MPV 10.8 Sodium 142 Potassium 3.8 Chloride 117 H Carbon Dioxide 16 L Anion Gap 9 BUN 20 Creatinine 1.67 H Est Cr Clr Drug Dosing 39.7 Est GFR ( Amer) 44.4 Est GFR (Non-Af Amer) 38.3 BUN/Creatinine Ratio 12.0 Glucose 128 H POC Glucose 127 H Calcium 7.9 L Phosphorus 3.2 Magnesium 1.3 L C-Reactive Protein 1.52 H Procalcitonin 0.61 H PG Care Time/CCT Total # of Minutes Spent Total Time Spent with Patient: Total time spent is greater than 50% in coordination of care (as documented) at patient's floor/unit and/or counseling patient: Coding Level of Care Code 53098 SUB INP/OBS CARE 3/50MIN Diagnoses Severe sepsis A41.9; R65.20 Elevated lactic acid level R79.89 Acute diarrhea R19.7 Acute kidney injury superimposed on chronic kidney disease N17.9; N18.9 Hypertrophic cardiomyopathy I42.2 CHB (complete heart block) I44.2 Chronic kidney disease, stage III (moderate) N18.30 Pseudo-obstruction of colon K59.81 Cece syndrome K59.81 Diabetes 1.5, managed as type 2 E13.9 Status post placement of cardiac pacemaker Z95.0 Hypertension, unspecified type I10 Hypertension type: unspecified BPH with obstruction/lower urinary tract symptoms N40.1; N13.8 Acute metabolic encephalopathy G93.41 Thrombocytopenia D69.6 DVT prophylaxis Z29.9 Hypomagnesemia E83.42 (12) Hypertension Hypertension type: unspecified Qualified Code(s): I10 - Essential (primary) hypertension
[2023-04-03] MEDS: AMOXICILLIN/CLAVULANATE 875 MG TAB PO SCH (17:42)
[2023-04-03] MEDS ORDERED: POTASSIUM CHLORIDE 20 MEQ/15 ML UDC PO SCH (21:00)
[2023-04-03] MEDS: MIRTAZAPINE TAB 15 MG TAB PO SCH (21:36)
[2023-04-04 07:05] LABS: BUN Creatinine Ratio 11.4 (10-20); Calcium 7.9 mg/dl (8.6-10.3); Creatinine Clr Calc Pharmacy 42.2 ml/min; Est GFR (African American) 47.5 ml/min; Magnesium 1.6 mg/dl (1.7-2.4); Potassium 2.7 mmol/L (3.5-5.1)
[2023-04-04] MEDS: SODIUM BICARBONATE 650 MG TAB PO SCH ×3 (08:40→20:54)
[2023-04-04] MEDS: POTASSIUM CHLORIDE 20 MEQ/15 ML UDC PO SCH ×4 (08:40→20:53)
[2023-04-04] MEDS: allopurinoL 300 MG TAB PO SCH (08:40)
[2023-04-04] MEDS: MAGNESIUM CHLORIDE W/CALCIUM 64MG DELAYED REL TAB PO SCH ×2 (08:41→20:55)
[2023-04-04] MEDS: METOPROLOL SUCC 25MG EXT REL TAB PO SCH (08:41)
[2023-04-04] MEDS: HEPARIN SOD 5,000 UNIT/0.5 ML VIAL SQ SCH ×2 (08:42→20:52)
[2023-04-04] MEDS: AMOXICILLIN/CLAVULANATE 875 MG TAB PO SCH ×2 (08:42→17:22)
[2023-04-04] MEDS: MAGNESIUM SULFATE / D5W 1 GM/100 ML BAG IV SCH ×3 (08:47→18:00)
[2023-04-04] MEDS: ADVANCED PROBIOTIC 1250 MG CAPSULE PO SCH (08:47)
[2023-04-04] MEDS: INSULIN ASPART PER UNIT CHARGE SC SCH ×4 (08:56→20:47)
[2023-04-04] MEDS ORDERED: METOPROLOL TARTRATE 50 MG TAB PO STA (16:43)
--- NOTE | 2023-04-04 16:45 | Hospitalist Progress Note ---
Date of Service April 04, 2023 Assessment & Plan (1) Severe sepsis: Plan: suspected source - intra-abdominal -->ischemic colitis at time of admission ?? although he has chronic [place]'s he had severe abd distension with generalized abd pain along with foul-smelling stool at time of admission CT a/p with liquid stool throughout the colon upon admission as well stool Biofire negative c diff x 2 negative respiratory Biofire negative cxr without obvious pneumonia u/a mildly dirty but no bacteria or WBCs on microscopy blood cultures were negative he improved with supportive care measures, bowel rest, IV fluids, IV abx, and time completed a course of zosyn since time of admission (about 10-11 days) give 3 more days of augmentin (today is day #2 of 3) then stop all abx (2) Elevated lactic acid level: Plan: severe at time of admission 2nd to #1 resolved multifactorial causes - massive dehydration, severe sepsis, suspected intestinal ischemia now with hyperchloremic met acidosis likely from diarrhea cont Na Bicarb supplementation (3) Acute diarrhea: Plan: foul-smelling stool at time of admission stool biofire negative c diff x 2 both negative respiratory biofire including COVID negative intestinal/colonic ischemia was suspected as cause seen by gen surg and GI earlier in the stay - conservative, medical management was advised with antibiotics, etc he is now back to low fiber diet but appetite remains very poor (4) Acute kidney injury superimposed on chronic kidney disease: Plan: baseline Cr ~1.4 (02/2023) likely had sepsis associated ATN - present on admission no signs of obstruction on CT at time of admission BRIANNA resolved Cr continues to improve daily - now 1.58 today BMP am (5) Hypertrophic cardiomyopathy: Plan: follows with [facility] Cardiology is back on meto succ albeit at lower dose than typical for him received COPIOUS hydration earlier in the stay admission weight was 86kg now 99-100 kg has moderate edema of legs and severe scrotal edema lasix 20mg po x 1 given yesterday unfortunately will need to hold diuretics today due to low K and low mag (6) CHB (complete heart block): Plan: s/p pacemaker placement in the past (7) Chronic kidney disease, stage III (moderate): Plan: baseline Cr ~1.4 baseline CrCl about 45 superimposed BRIANNA -- improving (8) Pseudo-obstruction of colon: Plan: chronic Cece's previously seen by both GI & gen surg for this on prior admissions see #1 above (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, managed as type 2: Plan: BSGs ac/hs novolog SSI control satisfactory (11) Status post placement of cardiac pacemaker: (12) Hypertension: Plan: meto succ has been resumed in arlet of hydralazine will start aldactone 25mg daily - this may help some fluid issues and raise his K level as well (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: Plan: cont flomax cont fung (14) Acute metabolic encephalopathy: Plan: 2nd to severe sepsis, acidosis, etc resolved mental status nearly back to baseline (15) Thrombocytopenia: Plan: likely due to sepsis resolved (16) DVT prophylaxis: Plan: heparin 5000 BID (17) Hypomagnesemia: Plan: severe 2nd to poor oral intake 2nd to diarrhea/GI losses 2nd lasix yesterday repletion given again today 2x's repeat level this evening noted repeat level again in am (18) Hypokalemia: Plan: 2nd to loose stool 2nd to diuretics 2nd to poor oral intake replace repeat level noted from tonight repeat level am adding aldactone as well (19) Spinal stenosis: Plan: lumbar SEVERE 2021 MRI showed 1-2mm of AP diameter at L4-L5 on that study he has back pain from this he has significant ambulatory dysfunction from this start tylenol 1gm TID scheduled voltaren gel 4gm QID to back sprinkle in additional pain meds, if needed Plan updated pt's brother Miguel yesterday by phone Miguel mentions that for months Christopher has refused to participate in activities at the SNF keeps to himself hardly has conversation when he visits with his brother etc due to poor appetite and ?depression I started remeron 7.5mg HS on 04/03/23 may need palliative care consultation given chronic FTT, acute worsening of such, anorexia, poor functional status and ongoing generalized decline, etc Admission and Anticipated Discharge Date Admission Date: March 25, 2023 Subjective appetite unchanged per staff had large, loose BM this am - some mucous but no blood pt denies abd pain main complaint is back pain he states that "they rub a cream on it " [at the SNF] apparently that cream helps his pain significantly tele overnight wnl no new issues Review of Systems Review of Systems: cv - no chest pain pulm - no dyspnea GI - no abd pain or N/V - scrotal edema still severe Physical Exam Physical Exam: gen - NAD, looks same as yesterday mouth - MMM, no lesions, no thrush neck - no JVD heart - RRR, s1 s2, 1/6 MANOLO LSB lungs - CTA b/l; no rales or wheezes abd - mod distension unchanged; BS+, nontender; no HSM ext - 2+ edema b/l, pulses 2+ b/l - scrotum - SEVERE edema with buried penile head - scantly better; no redness or signs of cellulitis psych - awake/alert Results & Data Results & Data Vital Signs (Past 12 Hours) Vital Signs Temp Pulse Pulse Resp BP Pulse Ox O2 Del Method 04/04/23 16:35 77 04/04/23 16:14 36.7 C 59 L 18 191/94 H 98 Room Air 04/04/23 12:03 36.8 C 64 21 120/66 99 Room Air 04/04/23 08:09 36.6 C 57 L 18 127/61 97 Room Air 04/04/23 07:30 50 L 04/04/23 07:25 Room Air Laboratory Results Laboratory Results - last 48 hr 04/03/23 04/03/23 04/03/23 12:07 16:53 20:40 Sodium Potassium Chloride Carbon Dioxide Anion Gap BUN Creatinine Est Cr Clr Drug Dosing Est GFR ( Amer) Est GFR (Non-Af Amer) BUN/Creatinine Ratio Glucose POC Glucose 176 H 182 H 190 H Calcium Magnesium 04/04/23 04/04/23 04/04/23 06:10 08:09 12:00 Sodium 143 Potassium 2.7 L D Chloride 118 H Carbon Dioxide 16 L Anion Gap 9 BUN 18 Creatinine 1.58 H Est Cr Clr Drug Dosing 42.2 Est GFR ( Amer) 47.5 Est GFR (Non-Af Amer) 41.0 BUN/Creatinine Ratio 11.4 Glucose 95 POC Glucose 97 157 H Calcium 7.9 L Magnesium 1.6 L 04/04/23 04/04/23 16:46 16:52 Sodium Potassium 2.9 L Chloride Carbon Dioxide Anion Gap BUN Creatinine Est Cr Clr Drug Dosing Est GFR ( Amer) Est GFR (Non-Af Amer) BUN/Creatinine Ratio Glucose POC Glucose 174 H Calcium Magnesium 1.7 PG Care Time/CCT Total # of Minutes Spent Total Time Spent with Patient: Total time spent is greater than 50% in coordination of care (as documented) at patient's floor/unit and/or counseling patient: Coding Level of Care Code 31916 SUB INP/OBS CARE 3/50MIN Diagnoses Severe sepsis A41.9; R65.20 Elevated lactic acid level R79.89 Acute diarrhea R19.7 Acute kidney injury superimposed on chronic kidney disease N17.9; N18.9 Hypertrophic cardiomyopathy I42.2 CHB (complete heart block) I44.2 Chronic kidney disease, stage III (moderate) N18.30 Pseudo-obstruction of colon K59.81 [place] syndrome K59.81 Diabetes 1.5, managed as type 2 E13.9 Status post placement of cardiac pacemaker Z95.0 Hypertension, unspecified type I10 Hypertension type: unspecified BPH with obstruction/lower urinary tract symptoms N40.1; N13.8 Acute metabolic encephalopathy G93.41 Thrombocytopenia D69.6 DVT prophylaxis Z29.9 Hypomagnesemia E83.42 Hypokalemia E87.6 Spinal stenosis M48.00 (12) Hypertension Hypertension type: unspecified Qualified Code(s): I10 - Essential (primary) hypertension
[2023-04-04] MEDS: DICLOFENAC SOD 1% GEL 100 GM TUBE EXT SCH ×2 (17:22→20:56)
[2023-04-04 17:46] LABS: Magnesium 1.7 mg/dl (1.7-2.4); Potassium 2.9 mmol/L (3.5-5.1)
[2023-04-04] MEDS ORDERED: SPIRONOLACTONE 25 MG TAB PO ONE (19:30)
[2023-04-04] MEDS: ACETAMINOPHEN 500 MG TAB PO SCH (20:52)
[2023-04-04] MEDS: TAMSULOSIN HCL 0.4 MG CAP PO SCH (20:53)
[2023-04-04] MEDS: MIRTAZAPINE TAB 15 MG TAB PO SCH (20:54)
[2023-04-05] MEDS: ACETAMINOPHEN 500 MG TAB PO SCH ×3 (08:50→20:04)
[2023-04-05] MEDS: HEPARIN SOD 5,000 UNIT/0.5 ML VIAL SQ SCH ×2 (08:50→20:06)
[2023-04-05] MEDS: ADVANCED PROBIOTIC 1250 MG CAPSULE PO SCH (08:50)
[2023-04-05] MEDS: SODIUM BICARBONATE 650 MG TAB PO SCH (08:50)
[2023-04-05] MEDS: AMOXICILLIN/CLAVULANATE 875 MG TAB PO SCH ×2 (08:50→17:32)
[2023-04-05] MEDS: DICLOFENAC SOD 1% GEL 100 GM TUBE EXT SCH ×4 (08:51→20:16)
[2023-04-05] MEDS: POTASSIUM CHLORIDE 20 MEQ/15 ML UDC PO SCH ×4 (08:51→20:05)
[2023-04-05] MEDS: METOPROLOL SUCC 50MG EXT REL TAB PO SCH (08:51)
[2023-04-05] MEDS: MAGNESIUM CHLORIDE W/CALCIUM 64MG DELAYED REL TAB PO SCH ×2 (08:51→20:04)
[2023-04-05] MEDS: allopurinoL 300 MG TAB PO SCH (08:51)
[2023-04-05] MEDS: INSULIN ASPART PER UNIT CHARGE SC SCH ×4 (09:05→20:15)
[2023-04-05 10:40] LABS: Calcium 8.1 mg/dl (8.6-10.3)
[2023-04-05 10:45] LABS: BUN Creatinine Ratio 10.9 (10-20); Creatinine Clr Calc Pharmacy 45.3 ml/min; Est GFR (African American) 51.8 ml/min; Est GFR (Non-African American) 44.7 ml/min
[2023-04-05] MEDS: SPIRONOLACTONE 25 MG TAB PO SCH (12:19)
--- NOTE | 2023-04-05 14:06 | Palliative Care Consultation ---
Date of Consultation April 05, 2023 Assessment & Plan (1) Palliative care by specialist: Plan I called pt brother and YANETH Rivera several times today at both listed numbers, without success. On my last attempt this afternoon, I left a voicemail and req a call back/awaiting return call. I have updated Dr Plata. Thank you for allowing us to participate in the ongoing care of this patient. Please don't hesitate to call or page with any additional concerns. Dr. Raquel Madden [facility] Director, Palliative Care History of Present Illness Reason for Consultation: ftt, [facility] Attending Physician: Tremaine Sales MD History of Present Illness 78YO MALE WHO RESIDES AT [facility]. PMH: hypertrophic cardiomyopathy, LVH, complete heart block, CKD stage III, pseudoobstruction of colon, Cece syndrome, diabetes mellitus type 1.5 managed as type II, brain TIA, anemia chronic disease, presence of cardiac pacemaker, LVOT obstruction, BPH with LUTS, secondary hyperparathyroidism and memory impairment. Presented from SNF on 03/24/23 with persistently elevated temperature, declining blood pressure, signs of dehydration, and diarrhea. ED eval c/w sepsis due to UTI, with temperature 38.5, declining SBP into the lower 80s, and increasing heart rate. Labs revealed creatinine 2.94, glucose 129, anion gap 16, lactate 5.9. From the ED the patient received the following: Normal saline 1 L boluses x 4, Zosyn 4.5 g IV, and Tylenol 1 g IV. NO surgical intervention needed Allergies Allergy/AdvReac Type Severity Reaction Status Date / Time No Known Allergies Allergy ` Verified 03/24/23 20:43 Home Medications Medication Instructions Recorded Confirmed Type blood sugar diagnostic (OneTouch #100 ea 06/29/20 03/24/23 Rx Ultra Blue Test Strip) finasteride 5 mg tablet (Proscar) 5 mg PO QAM #30 tabs 10/09/20 03/24/23 Rx allopurinol 300 mg tablet 300 mg PO QAM 10/19/20 03/24/23 History aspirin 81 mg chewable tablet 81 mg PO QAM 10/19/20 03/24/23 History atorvastatin 40 mg tablet 40 mg PO HS #30 tabs 10/29/20 03/24/23 Rx cholecalciferol (vitamin D3) 25 1,000 units PO QAM 12/16/20 03/24/23 History mcg (1,000 unit) capsule tamsulosin 0.4 mg capsule 0.4 mg PO QPM 12/16/20 03/24/23 History ascorbic acid (vitamin C) 250 mg 250 mg PO QAM 03/01/21 03/24/23 History tablet isosorbide mononitrate 60 mg 60 mg PO QAM 03/01/21 03/24/23 History tablet,extended release 24 hr metoprolol succinate 200 mg 200 mg PO QAM 03/01/21 03/24/23 History capsule sprinkle, ext. release 24 hr ropinirole 1 mg tablet 1 mg PO QAM 03/01/21 03/24/23 History potassium chloride 20 mEq 20 meq PO QAM 07/16/21 03/24/23 History tablet,extended release simethicone 125 mg chewable tablet 125 mg PO Q6H PRN GAS RELIEF 07/16/21 03/24/23 History cyanocobalamin (vitamin B-12) 1,000 mcg PO QAM 07/25/21 03/24/23 History 1,000 mcg tablet (Vitamin B-12) bisacodyl 10 mg rectal suppository 10 mg NE Q2D #12 ea 09/16/21 03/24/23 Rx insulin glargine 100 unit/mL (3 5 unit (0.05 mL) SC QAM #0 mL 09/16/21 03/24/23 Rx mL) subcutaneous pen (Lantus Solostar U-100 Insulin) polyethylene glycol 3350 17 gram 17 g PO DAILY #30 ea 09/16/21 03/24/23 Rx oral powder packet (Miralax) Senna Syrup 5 ml PO BID 03/24/23 03/24/23 History acetaminophen 325 mg tablet 650 mg PO Q6 PRN Pain 03/24/23 03/24/23 History acetaminophen 325 mg tablet 650 mg PO Q6 PRN temp>100 03/24/23 03/24/23 History hydralazine 50 mg tablet 50 mg PO TID 03/24/23 03/24/23 History insulin aspart U-100 100 unit/mL 2 unit SC WM 03/24/23 03/24/23 History (3 mL) subcutaneous pen (Novolog FlexPen U-100 Insulin aspart) menthol 0.44 %-zinc oxide 20.6 % 1 applic topical QS 03/24/23 03/24/23 History topical ointment (Calmoseptine) [id number] acid 0.4 1 tab PO DAILY 03/24/23 03/24/23 History mg-lycopene 300 mcg-lutein 250 mcg tablet (ABC Complete Senior 50 Plus) Patient History Medical History (Updated 04/05/23 @ 14:21 by Raquel Madden DNP) Metabolic acidosis Acute hypokalemia Acute hypotension BRIANNA (acute kidney injury) Elevated troponin Diarrhea Hypokalemia BRIANNA (acute kidney injury) DVT prophylaxis Hypotension Bladder outlet obstruction Sinus node dysfunction DVT prophylaxis Fecal impaction BRIANNA (acute kidney injury) CKD (chronic kidney disease) Elevated troponin BPH with obstruction/lower urinary tract symptoms Deep vein thrombosis (DVT) of left lower extremity Bereavement Skin carcinoma Anemia of chronic disease Hypertrophic obstructive cardiomyopathy (HOCM) Low back pain Toe infection Proteinuria Syncope and collapse Subclavian vein thromboembolism, acute Spinal stenosis Mobitz (type) II atrioventricular block Diabetes Hypertension Surgical History History of cataract surgery Status post placement of cardiac pacemaker H/O arthroscopy of knee Family History Mother Ovarian cancer Diabetes Father Diabetes Unknown Coronary heart disease Denies family history of Prostate cancer Myocardial infarction Breast cancer Colorectal cancer Social History Smoking Status: Unknown if ever smoked Second Hand Exposure: No; Do You Dip or Chew Tobacco: No; Hx Substance Use: No Preferred Language: German Communication Ability: Impaired Maintenance Services Dispatcher Required: No Beliefs That Will Affect Care: None marital status: / Current Living Situation: [facility] Current Living Situation Comment: [facility] current occupational status: retired How many Children do You have: 0 Feels Safe at Home: Yes Childhood Exposure to Second-Hand Smoke: No caffeine: Yes Dental Care, Regularly: Yes Physical Activity Frequency: 1-2 Times per Week Seatbelt Use: always Sunscreen Use: No Assistive Devices: Mechanical Lift and Walker Review of Systems Review of Systems: Unobtainable due to cognitive status Physical Exam Physical Exam: limited exam pt not interacting with me bitemp wasting perrla MM dry neck supple/no stridor normal resp effort, lungs diminished S1S2 no overt JVD abd distended, no grimacing with palpation BS+ generalized weakness eyes open to name, did not follow any commands for me Results & Data Vital Signs (Past 12 Hours) Vital Signs Temp Pulse Pulse Resp BP Pulse Ox O2 Del Method 04/05/23 10:41 36.6 C 60 16 129/66 99 Room Air 04/05/23 08:00 50 L 04/05/23 08:00 Room Air 04/05/23 07:46 36.7 C 55 L 17 135/69 99 Room Air 04/05/23 03:10 36.3 C L 50 L 16 143/78 H 98 Room Air Laboratory Results data reviewed Diagnostic Findings data reviewed PG Care Time/CCT Total # of Minutes Spent Total Time Spent: 65 Total Time Spent with Patient: Total time spent is greater than 50% in coordination of care (as documented) at patient's floor/unit and/or counseling patient: I spent 65 minutes overall addressing this case: 25 min in medical data review/discussion with referring provider(s) and/or preparation for the visit 20 min in direct interaction with the patient/exam 00 min in Advance Care Planning/Goals of Care discussions as detailed above in note (must be >16min) 5 min in subsequent review and synthesis of assessment and plan 15 min communicating with other providers regarding the patient's case: [place] [address] IN/OBS CONSULT LVL 4,60M Patient Type New History Comprehensive Exam Comprehensive Medical Decision Making Moderate Complexity Diagnoses Palliative care by specialist Z51.5
[2023-04-05] MEDS ORDERED: IDENTIFIER EXT PRN (17:33)
[2023-04-05] MEDS ORDERED: CHOLESTYRAMINE LIGHT EXT PRN (17:33)
[2023-04-05] MEDS ORDERED: AQUAPHOR EXT PRN (17:33)
[2023-04-05] MEDS: TAMSULOSIN HCL 0.4 MG CAP PO SCH (20:04)
[2023-04-05] MEDS: MIRTAZAPINE TAB 15 MG TAB PO SCH (20:04)
--- NOTE | 2023-04-05 21:10 | Hospitalist Progress Note ---
Date of Service April 05, 2023 Assessment & Plan (1) Severe sepsis: Plan: suspected source - intra-abdominal -->ischemic colitis at time of admission ?? although he has chronic [place]'s he had severe abd distension with generalized abd pain along with foul-smelling stool at time of admission CT a/p with liquid stool throughout the colon upon admission as well stool Biofire negative c diff x 2 negative respiratory Biofire negative cxr without obvious pneumonia u/a mildly dirty but no bacteria or WBCs on microscopy blood cultures were negative he improved with supportive care measures, bowel rest, IV fluids, IV abx, and time completed a course of zosyn since time of admission (about 10-11 days) give 3 more days of augmentin (today is day #3 of 3) then stop all abx (2) Elevated lactic acid level: Plan: severe at time of admission 2nd to #1 resolved multifactorial causes - massive dehydration, severe sepsis, suspected intestinal ischemia now with hyperchloremic met acidosis likely from diarrhea his hypokalemia has been refractory and Sodium bicarb is not improving his acidosis - will place on hold, likely discuss with nephrology (3) Acute diarrhea: Plan: foul-smelling stool at time of admission stool biofire negative c diff x 2 both negative respiratory biofire including COVID negative intestinal/colonic ischemia was suspected as cause seen by gen surg and GI earlier in the stay - conservative, medical management was advised with antibiotics, etc he is now back to low fiber diet - appetite finally improving with remeron (4) Acute kidney injury superimposed on chronic kidney disease: Plan: baseline Cr ~1.4 (02/2023) likely had sepsis associated ATN - present on admission no signs of obstruction on CT at time of admission BRIANNA resolved Cr continues to improve daily BMP am (5) Hypertrophic cardiomyopathy: Plan: follows with [facility] is back on meto succ albeit at lower dose than typical for him received COPIOUS hydration earlier in the stay admission weight was 86kg now 99-100 kg has moderate edema of legs and severe scrotal edema no lasix today due to ongoing electrolyte issues maybe tomorrow to help with excess volume (6) CHB (complete heart block): Plan: s/p pacemaker placement in the past (7) Chronic kidney disease, stage III (moderate): Plan: baseline Cr ~1.4 baseline CrCl about 45 superimposed BRIANNA -- improving nicely (8) Pseudo-obstruction of colon: Plan: chronic Cece's previously seen by both GI & gen surg for this on prior admissions see #1 above (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, managed as type 2: Plan: BSGs ac/hs novolog SSI control satisfactory (11) Status post placement of cardiac pacemaker: (12) Hypertension: Plan: meto succ has been resumed in arlet of hydralazine I started aldactone 25mg daily - this may help some fluid issues and raise his K level as well (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: Plan: cont flomax cont fung (14) Acute metabolic encephalopathy: Plan: 2nd to severe sepsis, acidosis, etc resolved mental status nearly back to baseline (15) Thrombocytopenia: Plan: likely due to sepsis resolved (16) DVT prophylaxis: Plan: heparin 5000 BID (17) Hypomagnesemia: Plan: severe 2nd to poor oral intake 2nd to diarrhea/GI losses 2nd lasix yesterday level finally improved (18) Hypokalemia: Plan: 2nd to loose stool 2nd to diuretics 2nd to poor oral intake replace repeat level am added aldactone (19) Spinal stenosis: Plan: lumbar SEVERE 2021 MRI showed 1-2mm of AP diameter at L4-L5 on that study he has back pain from this he has significant ambulatory dysfunction from this cont tylenol 1gm TID scheduled voltaren gel 4gm QID to back sprinkle in additional pain meds, if needed Plan updated pt's brother Miguel earlier this week Miguel mentions that for months Christopher has refused to participate in activities at the SNF keeps to himself hardly has conversation when he visits with his brother etc due to poor appetite and ?depression I started remeron 7.5mg HS on 04/03/23 requested palliative care consultation given chronic FTT, acute worsening of such, anorexia, poor functional status and ongoing generalized decline, etc goals of care will be important moving forward Admission and Anticipated Discharge Date Admission Date: March 25, 2023 Subjective eating has definitely improved in fact he is feeding himself now eating at least 50% of meals during the visit he denied any complaints of abd pain or N/V continues with mucousy stools but brown - no melena or BRBPR tele stable overnight Review of Systems Review of Systems: cv - no chest pain pulm - denies dyspnea GI - no N/V - still with severe scrotal edema Physical Exam Physical Exam: gen - NAD, looks same as yesterday mouth - MMM, no lesions, no thrush neck - no JVD heart - RRR, s1 s2, 1/6 MANOLO LSB lungs - CTA b/l; no rales or wheezes abd - mod distension unchanged; BS+, nontender; no HSM ext - 1-2+ edema b/l, pulses 2+ b/l - scrotum - SEVERE edema with buried penile head - no change psych - awake/alert and talkative Results & Data Results & Data Vital Signs (Past 12 Hours) Vital Signs Temp Pulse Resp BP BP Pulse Ox O2 Del Method 04/05/23 19:00 36.8 C 53 L 20 162/76 H 99 Room Air 04/05/23 15:21 36.5 C 69 18 168/70 H 97 Room Air 04/05/23 10:41 36.6 C 60 16 129/66 99 Room Air Laboratory Results Laboratory Results - last 24 hr 04/05/23 04/05/23 04/05/23 06:12 07:49 11:52 Sodium 142 Potassium 3.0 L Chloride 120 H Carbon Dioxide 13 L Anion Gap 9 BUN 16 Creatinine 1.47 H Est Cr Clr Drug Dosing 45.3 Est GFR ( Amer) 51.8 Est GFR (Non-Af Amer) 44.7 BUN/Creatinine Ratio 10.9 Glucose 135 H POC Glucose 134 H 179 H Calcium 8.1 L Magnesium 2.0 04/05/23 04/05/23 16:27 20:08 Sodium Potassium Chloride Carbon Dioxide Anion Gap BUN Creatinine Est Cr Clr Drug Dosing Est GFR ( Amer) Est GFR (Non-Af Amer) BUN/Creatinine Ratio Glucose POC Glucose 139 H 145 H Calcium Magnesium PG Care Time/CCT Total # of Minutes Spent Total Time Spent with Patient: Total time spent is greater than 50% in coordination of care (as documented) at patient's floor/unit and/or counseling patient: Coding Level of Care Code 37761 SUB INP/OBS CARE 2/35MIN Diagnoses Severe sepsis A41.9; R65.20 Elevated lactic acid level R79.89 Acute diarrhea R19.7 Acute kidney injury superimposed on chronic kidney disease N17.9; N18.9 Hypertrophic cardiomyopathy I42.2 CHB (complete heart block) I44.2 Chronic kidney disease, stage III (moderate) N18.30 Pseudo-obstruction of colon K59.81 Cece syndrome K59.81 Diabetes 1.5, managed as type 2 E13.9 Status post placement of cardiac pacemaker Z95.0 Hypertension, unspecified type I10 Hypertension type: unspecified BPH with obstruction/lower urinary tract symptoms N40.1; N13.8 Acute metabolic encephalopathy G93.41 Thrombocytopenia D69.6 DVT prophylaxis Z29.9 Hypomagnesemia E83.42 Hypokalemia E87.6 Spinal stenosis M48.00 (12) Hypertension Hypertension type: unspecified Qualified Code(s): I10 - Essential (primary) hypertension
[2023-04-06 06:47] LABS: BUN Creatinine Ratio 11.2 (10-20); Calcium 8.1 mg/dl (8.6-10.3); Creatinine Clr Calc Pharmacy 41.9 ml/min; Est GFR (African American) 46.4 ml/min; Est GFR (Non-African American) 40.1 ml/min; Potassium 3.3 mmol/L (3.5-5.1)
[2023-04-06] MEDS ORDERED: FUROSEMIDE INJ 20 MG/2 ML VIAL IV SCH (07:31)
[2023-04-06] MEDS ORDERED: FUROSEMIDE INJ 20 MG/2 ML VIAL IV ONE (07:31)
[2023-04-06] MEDS: HEPARIN SOD 5,000 UNIT/0.5 ML VIAL SQ SCH ×2 (09:36→20:11)
[2023-04-06] MEDS: AMOXICILLIN/CLAVULANATE 875 MG TAB PO SCH (09:37)
[2023-04-06] MEDS: ACETAMINOPHEN 500 MG TAB PO SCH ×3 (09:37→20:12)
[2023-04-06] MEDS: POTASSIUM CHLORIDE 20 MEQ/15 ML UDC PO SCH (09:37)
[2023-04-06] MEDS: allopurinoL 300 MG TAB PO SCH (09:37)
[2023-04-06] MEDS: METOPROLOL SUCC 50MG EXT REL TAB PO SCH (09:37)
[2023-04-06] MEDS: MAGNESIUM CHLORIDE W/CALCIUM 64MG DELAYED REL TAB PO SCH ×2 (09:37→20:13)
[2023-04-06] MEDS: ADVANCED PROBIOTIC 1250 MG CAPSULE PO SCH (09:37)
[2023-04-06] MEDS: SPIRONOLACTONE 25 MG TAB PO SCH (09:37)
[2023-04-06] MEDS: INSULIN ASPART PER UNIT CHARGE SC SCH ×4 (09:42→20:14)
[2023-04-06] MEDS: DICLOFENAC SOD 1% GEL 100 GM TUBE EXT SCH ×4 (11:03→20:13)
[2023-04-06] MEDS: POTASSIUM CITRATE 10 MEQ TAB PO SCH ×2 (15:23→20:13)
[2023-04-06] MEDS: BUTT PASTE (ZINC OXIDE 16%) 171 APPLN/57 GM JAR EXT SCH (16:23)
--- NOTE | 2023-04-06 20:00 | Hospitalist Progress Note ---
Date of Service April 06, 2023 Assessment & Plan (1) Severe sepsis: Plan: present on admission - resolved source - intra-abdominal -->ischemic colitis? although he has chronic [place]'s he had severe abd distension with generalized abd pain along with foul-smelling stool at time of admission CT a/p with liquid stool throughout the colon upon admission as well stool Biofire negative c diff x 2 negative respiratory Biofire negative cxr without obvious pneumonia u/a mildly dirty but no bacteria or WBCs on microscopy blood cultures were negative he improved with supportive care measures, bowel rest, IV fluids, IV abx, and time completed a course of zosyn since time of admission (about 10-11 days) gave 3 more days of augmentin all abx are off (2) Elevated lactic acid level: Plan: severe at time of admission 2nd to #1 resolved multifactorial causes - massive dehydration, severe sepsis, suspected intestinal ischemia now with hyperchloremic met acidosis likely from diarrhea his hypokalemia has been refractory and Sodium bicarb is not improving his acidosis stop sodium bicarbonate start potassium citrate (3) Acute diarrhea: Plan: foul-smelling stool at time of admission stool biofire negative c diff x 2 both negative respiratory biofire including COVID negative intestinal/colonic ischemia was suspected as cause seen by gen surg and GI earlier in the stay - conservative, medical management was advised with antibiotics, etc he is now back to low fiber diet - appetite finally improving with remeron he is having frequent, small, mucous-filled loose stools which led to rectal tube placement (he has severe skin breakdown in the buttocks area) repeat a c diff test (4) Acute kidney injury superimposed on chronic kidney disease: Plan: baseline Cr ~1.4 (02/2023) likely had sepsis associated ATN - present on admission no signs of obstruction on CT at time of admission BRIANNA resolved Cr has been very stable for several days BMP am (5) Hypertrophic cardiomyopathy: Plan: follows with [facility] is back on meto succ albeit at lower dose than typical for him received COPIOUS hydration earlier in the stay admission weight was 86kg now 99-100 kg has ongoing moderate edema of legs and severe scrotal edema will give 20mg of IV lasix again today (6) CHB (complete heart block): Plan: s/p pacemaker placement in the past (7) Chronic kidney disease, stage III (moderate): Plan: baseline Cr ~1.4 baseline CrCl about 45 (8) Pseudo-obstruction of colon: Plan: chronic Cece's previously seen by both GI & gen surg for this on prior admissions see #1 above (9) [place] syndrome: Plan: as above (10) Diabetes 1.5, managed as type 2: Plan: BSGs ac/hs novolog SSI control satisfactory (11) Status post placement of cardiac pacemaker: (12) Hypertension: Plan: meto succ has been resumed in arlet of hydralazine I started aldactone 25mg daily - this may help some fluid issues and raise his K level as well (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: Plan: cont flomax cont fung (14) Acute metabolic encephalopathy: Plan: 2nd to severe sepsis, acidosis, etc resolved mental status back to baseline (15) Thrombocytopenia: Plan: likely due to sepsis resolved (16) DVT prophylaxis: Plan: heparin 5000 BID (17) Hypomagnesemia: Plan: severe 2nd to poor oral intake 2nd to diarrhea/GI losses 2nd lasix recheck mag level in am (18) Hypokalemia: Plan: 2nd to loose stool 2nd to diuretics 2nd to poor oral intake cont to replace repeat level am cont aldactone (19) Spinal stenosis: Plan: lumbar SEVERE 2021 MRI showed 1-2mm of AP diameter at L4-L5 on that study he has back pain from this he has significant ambulatory dysfunction from this cont tylenol 1gm TID scheduled voltaren gel 4gm QID to back sprinkle in additional pain meds, if needed pain has improved (20) Hyperchloremic metabolic acidosis: Plan: 2nd to frequent loose stool stop Na bicarb tabs start potassium citrate 40meq TID repeat BMP am Plan updated pt's brother Miguel earlier this week left brief message with Miguel's this evening Miguel has mentioned that for months Christopher has refused to participate in activities at the SNF keeps to himself hardly has conversation when he visits with his brother etc due to poor appetite and ?depression I started remeron 7.5mg HS on 04/03/23 requested palliative care consultation given chronic FTT, acute worsening of such, anorexia, poor functional status and ongoing generalized decline, etc goals of care will be important moving forward Admission and Anticipated Discharge Date Admission Date: March 25, 2023 Subjective tele overnight- pacing events of last 24 hours - eating fair, feeding himself had rectal tube placed overnight by nursing report he is having frequent, small, loose stools with mucous; no blood he denies any abd pain denies nausea/emesis Review of Systems Review of Systems: cv - no chest pain pulm - no dyspnea or cough Physical Exam Physical Exam: gen - NAD, resting comfortably in bed mouth - MMM neck - no JVD heart - RRR, s1 s2, 1/6 MANOLO LSB lungs - CTA b/l; no rales or wheezes abd - mild-mod distension unchanged; BS+, nontender; no HSM ext - 1+ edema b/l, pulses 2+ b/l - scrotum - mod-SEVERE edema with buried penile head - no change psych - awake/alert Results & Data Results & Data Vital Signs (Past 12 Hours) Vital Signs Temp Pulse Pulse Resp BP Pulse Ox O2 Del Method 04/06/23 19:35 36.6 C 94 H 20 154/101 H 94 Room Air 04/06/23 15:17 36.5 C 59 L 18 178/65 H 97 Room Air 04/06/23 11:22 36.6 C 97 H 19 140/86 99 Room Air 04/06/23 08:00 54 L Laboratory Results Laboratory Results - last 24 hr 04/05/23 04/06/23 04/06/23 20:08 06:09 07:53 Sodium 142 Potassium 3.3 L Chloride 121 H Carbon Dioxide 14 L Anion Gap 7 BUN 18 Creatinine 1.61 H Est Cr Clr Drug Dosing 41.9 Est GFR ( Amer) 46.4 Est GFR (Non-Af Amer) 40.1 BUN/Creatinine Ratio 11.2 Glucose 112 H POC Glucose 145 H 116 H Calcium 8.1 L 04/06/23 04/06/23 12:03 16:56 Sodium Potassium Chloride Carbon Dioxide Anion Gap BUN Creatinine Est Cr Clr Drug Dosing Est GFR ( Amer) Est GFR (Non-Af Amer) BUN/Creatinine Ratio Glucose POC Glucose 159 H 96 Calcium PG Care Time/CCT Total # of Minutes Spent Total Time Spent with Patient: Total time spent is greater than 50% in coordination of care (as documented) at patient's floor/unit and/or counseling patient: Coding Level of Care Code 04292 SUB INP/OBS CARE 2/35MIN Diagnoses Severe sepsis A41.9; R65.20 Elevated lactic acid level R79.89 Acute diarrhea R19.7 Acute kidney injury superimposed on chronic kidney disease N17.9; N18.9 Hypertrophic cardiomyopathy I42.2 CHB (complete heart block) I44.2 Chronic kidney disease, stage III (moderate) N18.30 Pseudo-obstruction of colon K59.81 Cece syndrome K59.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
[2023-04-06] MEDS: MIRTAZAPINE TAB 15 MG TAB PO SCH (20:12)
[2023-04-06] MEDS: TAMSULOSIN HCL 0.4 MG CAP PO SCH (20:12)
[2023-04-07 06:30] LABS: Basophils # (auto) 0.04 K/uL (0.00-0.20); Basophils % (auto) 0.7 %; Eosinophils % (auto) 5.3 %; Hematocrit (blood only) 28.1 % (42.0-52.0); Hemoglobin 9.2 g/dl (14.0-18.0); Immature Granulocytes # (auto) 0.03 K/uL (0.01-0.20); Immature Granulocytes % (auto) 0.5 %; Lymphocytes # (auto) 1.35 K/uL (1.20-3.40); Lymphocytes % (auto) 23.7 %; Mean Corpuscular Hemoglobin 31.2 pg (25.0-34.0); Mean Corpuscular Hgb Conc 32.7 g/dL (32.0-36.0); Mean Corpuscular Volume 95.3 fL (80.0-100.0); Mean Platelet Volume 10.6 fL (9.4-12.4); Monocytes # (auto) 0.42 K/uL (0.11-0.59); Monocytes % (auto) 7.4 %; Neutrophils # (auto) 3.55 K/uL (1.40-6.50); Neutrophils % (auto) 62.4 %; Platelet Count 259 K/uL (130-400); RDW Coefficient of Variation 15.8 % (11.5-14.5); RDW Standard Deviation 54.3 fL (36.4-46.3); Red Blood Count 2.95 M/uL (4.70-6.10); White Blood Count 5.69 K/ul (4.8-10.8)
[2023-04-07 06:54] LABS: BUN Creatinine Ratio 12.2 (10-20); Calcium 8.3 mg/dl (8.6-10.3); Creatinine Clr Calc Pharmacy 45.8 ml/min; Est GFR (African American) 51.4 ml/min; Est GFR (Non-African American) 44.4 ml/min; Magnesium 1.4 mg/dl (1.7-2.4); Potassium 3.2 mmol/L (3.5-5.1)
[2023-04-07] MEDS ORDERED: FUROSEMIDE INJ 20 MG/2 ML VIAL IV SCH (07:31)
[2023-04-07] MEDS: HEPARIN SOD 5,000 UNIT/0.5 ML VIAL SQ SCH ×2 (08:05→19:59)
[2023-04-07] MEDS: SPIRONOLACTONE 25 MG TAB PO SCH (08:06)
[2023-04-07] MEDS: allopurinoL 300 MG TAB PO SCH (08:06)
[2023-04-07] MEDS: POTASSIUM CITRATE 10 MEQ TAB PO SCH ×3 (08:06→20:01)
[2023-04-07] MEDS: ADVANCED PROBIOTIC 1250 MG CAPSULE PO SCH (08:06)
[2023-04-07] MEDS: METOPROLOL SUCC 50MG EXT REL TAB PO SCH (08:06)
[2023-04-07] MEDS: ACETAMINOPHEN 500 MG TAB PO SCH ×3 (08:07→20:09)
[2023-04-07] MEDS: DICLOFENAC SOD 1% GEL 100 GM TUBE EXT SCH ×4 (08:07→19:58)
[2023-04-07] MEDS: MAGNESIUM CHLORIDE W/CALCIUM 64MG DELAYED REL TAB PO SCH ×2 (08:07→20:00)
[2023-04-07] MEDS: POTASSIUM CHLORIDE / WTR 10 MEQ/100 ML PLCT IV SCH ×2 (08:16→09:14)
[2023-04-07] MEDS: INSULIN ASPART PER UNIT CHARGE SC SCH ×4 (08:25→20:30)
[2023-04-07] MEDS: MAGNESIUM SULFATE / D5W 1 GM/100 ML BAG IV SCH ×3 (09:41→13:24)
[2023-04-07] MEDS ORDERED: METOPROLOL SUCC 25MG EXT REL TAB PO ONE (11:21)
[2023-04-07] MEDS: BUTT PASTE (ZINC OXIDE 16%) 171 APPLN/57 GM JAR EXT SCH (12:06)
[2023-04-07] MEDS ORDERED: FUROSEMIDE INJ 20 MG/2 ML VIAL IV ONE (17:04)
[2023-04-07] MEDS: MIRTAZAPINE TAB 15 MG TAB PO SCH (20:00)
[2023-04-07] MEDS: TAMSULOSIN HCL 0.4 MG CAP PO SCH (20:04)
[2023-04-07] MEDS ORDERED: hydrALAZINE HCL 20 MG/ML VIAL IV STA (20:35)
[2023-04-07] MEDS ORDERED: LIDOCAINE 5% 1 PATCH TD STA (20:36)
--- NOTE | 2023-04-07 21:02 | Hospitalist Progress Note ---
Date of Service April 07, 2023 Assessment & Plan (1) Severe sepsis: Plan: present on admission - resolved source - intra-abdominal -->ischemic colitis? work-up at admission: stool Biofire negative c diff x 2 negative respiratory Biofire negative cxr without obvious pneumonia u/a mildly dirty but no bacteria or WBCs on microscopy blood cultures negative he improved with supportive care measures, bowel rest, IV fluids, IV abx, and time completed a course of zosyn - about 10-11 days completed 3 more days of augmentin all abx are off (2) Elevated lactic acid level: Plan: severe at time of admission 2nd to #1 resolved multifactorial causes - massive dehydration, severe sepsis, suspected intestinal ischemia now with hyperchloremic met acidosis likely from diarrhea his hypokalemia has been refractory and Sodium bicarb is not improving his acidosis stopped sodium bicarbonate started potassium citrate (3) Acute diarrhea: Plan: foul-smelling stool at time of admission stool biofire negative c diff x 2 both negative respiratory biofire including COVID negative intestinal/colonic ischemia was suspected as cause seen by gen surg and GI earlier in the stay - conservative, medical management was advised with antibiotics, etc he is now back to low fiber diet - appetite finally improving with remeron he is having frequent, small, mucous-filled loose stools which led to rectal tube placement (he has severe skin breakdown in the buttocks area) repeat a c diff test just to be sure he did not develop such post-antibiotics (4) Acute kidney injury superimposed on chronic kidney disease: Plan: baseline Cr ~1.4 (02/2023) likely had sepsis associated ATN - present on admission no signs of obstruction on CT at time of admission BRIANNA resolved Cr has been very stable for several days at his usual baseline BMP am (5) Hypertrophic cardiomyopathy: Plan: follows with [facility] is back on meto succ albeit at lower dose than typical for him received COPIOUS hydration earlier in the stay admission weight was 86kg now 100 kg has ongoing mild-moderate edema of legs and severe scrotal edema will give 20mg of IV lasix again today (6) CHB (complete heart block): Plan: s/p pacemaker placement in the past (7) Chronic kidney disease, stage III (moderate): Plan: baseline Cr ~1.4 baseline CrCl about 45 (8) Pseudo-obstruction of colon: Plan: chronic Cece's previously seen by both GI & gen surg for this on prior admissions see #1 above (9) [place] syndrome: Plan: as above (10) Diabetes 1.5, managed as type 2: Plan: BSGs ac/hs novolog SSI control satisfactory (11) Status post placement of cardiac pacemaker: (12) Hypertension: Plan: meto succ has been resumed in arlet of hydralazine I started aldactone 25mg daily - this may help some fluid issues and raise his K level as well (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: Plan: cont flomax cont fung (14) Acute metabolic encephalopathy: Plan: 2nd to severe sepsis, acidosis, etc resolved mental status back to baseline (15) Thrombocytopenia: Plan: likely due to sepsis resolved (16) DVT prophylaxis: Plan: heparin 5000 BID (17) Hypomagnesemia: Plan: severe 2nd to poor oral intake 2nd to diarrhea/GI losses 2nd lasix low again today from diarrhea & lasix - give 3 grams of mag sulfate x 1 repeat level am (18) Hypokalemia: Plan: 2nd to loose stool 2nd to diuretics 2nd to poor oral intake cont to replace repeat level am cont aldactone (19) Spinal stenosis: Plan: lumbar SEVERE 2021 MRI showed 1-2mm of AP diameter at L4-L5 on that study he has back pain from this he has significant ambulatory dysfunction from this cont tylenol 1gm TID scheduled voltaren gel 4gm QID to back sprinkle in additional pain meds, if needed pain has improved (20) Hyperchloremic metabolic acidosis: Plan: 2nd to frequent loose stool stopped Na bicarb tabs started potassium citrate 40meq TID repeat BMP am Plan updated pt's brother Miguel earlier this week left brief message with Miguel's last evening Miguel has mentioned that for months Christopher has refused to participate in activities at the SNF keeps to himself hardly has conversation when he visits with his brother etc due to poor appetite and ?depression I started remeron 7.5mg HS on 04/03/23 requested palliative care consultation given chronic FTT, acute worsening of such, anorexia, poor functional status and ongoing generalized decline, etc goals of care will be important moving forward Admission and Anticipated Discharge Date Admission Date: March 25, 2023 Subjective no new events pt sleeping upon arrival easily awakens denies any abdominal pain denies dyspnea denies chest pain eating fair per staff (only ate jello for lunch today) rectal tube still in place watery, dark brown stool in the rectal tube bag tele - pacing scrotal edema remains Review of Systems Review of Systems: cv - no orthopnea or chest pain pulm - no dyspnea at rest GI - no abd pain or nausea Physical Exam Physical Exam: gen - NAD, resting comfortably in bed; easily awoke from sleep mouth - MMM neck - no JVD heart - RRR, s1 s2, 1/6 MANOLO LSB lungs - CTA b/l; no rales or wheezes abd - mild distension; BS+, nontender; no HSM ext - <1+ edema b/l, pulses 2+ b/l - scrotum - mod-SEVERE edema with buried penile head - no change psych - awake/alert/oriented to person Results & Data Results & Data Vital Signs (Past 12 Hours) Vital Signs Temp Pulse Resp BP BP Pulse Ox O2 Del Method 04/07/23 20:21 36.6 C 75 17 194/132 H 100 Room Air 04/07/23 16:03 36.4 C L 60 19 157/78 H 99 Room Air 04/07/23 15:15 Room Air 04/07/23 11:33 36.5 C 58 L 19 156/77 H 98 Room Air Laboratory Results Laboratory Results - last 24 hr 04/07/23 04/07/23 04/07/23 06:04 07:42 11:32 WBC 5.69 RBC 2.95 L Hgb 9.2 L Hct 28.1 L MCV 95.3 MCH 31.2 MCHC 32.7 RDW Std Deviation 54.3 H RDW Coeff of Nona 15.8 H Plt Count 259 MPV 10.6 Immature Gran % (Auto) 0.5 Neut % (Auto) 62.4 Lymph % (Auto) 23.7 Pratt % (Auto) 7.4 Eos % (Auto) 5.3 Baso % (Auto) 0.7 Neut # (Auto) 3.55 Lymph # (Auto) 1.35 Pratt # (Auto) 0.42 Eos # (Auto) 0.30 Baso # (Auto) 0.04 Immature Gran # (Auto) 0.03 Sodium 141 Potassium 3.2 L Chloride 117 H Carbon Dioxide 15 L Anion Gap 9 BUN 18 Creatinine 1.48 H Est Cr Clr Drug Dosing 45.8 Est GFR ( Amer) 51.4 Est GFR (Non-Af Amer) 44.4 BUN/Creatinine Ratio 12.2 Glucose 112 H POC Glucose 112 H 144 H Calcium 8.3 L Magnesium 1.4 L 04/07/23 04/07/23 17:00 20:26 WBC RBC Hgb Hct MCV MCH MCHC RDW Std Deviation RDW Coeff of Nona Plt Count MPV Immature Gran % (Auto) Neut % (Auto) Lymph % (Auto) Pratt % (Auto) Eos % (Auto) Baso % (Auto) Neut # (Auto) Lymph # (Auto) Pratt # (Auto) Eos # (Auto) Baso # (Auto) Immature Gran # (Auto) Sodium Potassium Chloride Carbon Dioxide Anion Gap BUN Creatinine Est Cr Clr Drug Dosing Est GFR ( Amer) Est GFR (Non-Af Amer) BUN/Creatinine Ratio Glucose POC Glucose 174 H 157 H Calcium Magnesium PG Care Time/CCT Total # of Minutes Spent Total Time Spent with Patient: Total time spent is greater than 50% in coordination of care (as documented) at patient's floor/unit and/or counseling patient: Coding Level of Care Code 61380 SUB INP/OBS CARE 2/35MIN Diagnoses Severe sepsis A41.9; R65.20 Elevated lactic acid level R79.89 Acute diarrhea R19.7 Acute kidney injury superimposed on chronic kidney disease N17.9; N18.9 Hypertrophic cardiomyopathy I42.2 CHB (complete heart block) I44.2 Chronic kidney disease, stage III (moderate) N18.30 Pseudo-obstruction of colon K59.81 [place] syndrome K59.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
[2023-04-08] MEDS: DICLOFENAC SOD 1% GEL 100 GM TUBE EXT SCH ×4 (08:43→19:14)
[2023-04-08] MEDS: POTASSIUM CITRATE 10 MEQ TAB PO SCH ×3 (08:45→19:15)
[2023-04-08] MEDS: METOPROLOL SUCC 25MG EXT REL TAB PO SCH (08:46)
[2023-04-08] MEDS: HEPARIN SOD 5,000 UNIT/0.5 ML VIAL SQ SCH ×2 (08:46→19:18)
[2023-04-08] MEDS: allopurinoL 300 MG TAB PO SCH (08:46)
[2023-04-08] MEDS: MAGNESIUM CHLORIDE W/CALCIUM 64MG DELAYED REL TAB PO SCH ×2 (08:46→19:16)
[2023-04-08] MEDS: ADVANCED PROBIOTIC 1250 MG CAPSULE PO SCH (08:46)
[2023-04-08] MEDS: ACETAMINOPHEN 500 MG TAB PO SCH ×3 (08:46→19:21)
[2023-04-08] MEDS: INSULIN ASPART PER UNIT CHARGE SC SCH ×4 (08:50→20:41)
[2023-04-08 09:44] LABS: BUN Creatinine Ratio 13.7 (10-20); Calcium 8.5 mg/dl (8.6-10.3); Est GFR (African American) 63.7 ml/min; Est GFR (Non-African American) 54.9 ml/min; Magnesium 1.5 mg/dl (1.7-2.4); Potassium 3.4 mmol/L (3.5-5.1)
[2023-04-08] MEDS: SPIRONOLACTONE 25 MG TAB PO SCH (11:43)
[2023-04-08] MEDS: MAGNESIUM SULFATE / D5W 1 GM/100 ML BAG IV SCH ×3 (11:44→16:26)
[2023-04-08] MEDS: BUTT PASTE (ZINC OXIDE 16%) 171 APPLN/57 GM JAR EXT SCH (11:44)
[2023-04-08] MEDS ORDERED: FUROSEMIDE INJ 20 MG/2 ML VIAL IV ONE (13:00)
[2023-04-08] MEDS: MIRTAZAPINE TAB 15 MG TAB PO SCH (19:16)
--- NOTE | 2023-04-08 19:16 | Hospitalist Progress Note ---
Date of Service April 08, 2023 Assessment & Plan (1) Severe sepsis: Plan: present on admission - resolved source - intra-abdominal -->ischemic colitis? work-up at admission: stool Biofire negative c diff x 2 negative respiratory Biofire negative cxr without obvious pneumonia u/a mildly dirty but no bacteria or WBCs on microscopy blood cultures negative he improved with supportive care measures, bowel rest, IV fluids, IV abx, and time completed a course of zosyn - about 10-11 days completed 3 more days of augmentin all abx are off (2) Elevated lactic acid level: Plan: severe at time of admission 2nd to #1 resolved multifactorial causes - massive dehydration, severe sepsis, suspected intestinal ischemia now with hyperchloremic met acidosis likely from diarrhea his hypokalemia has been refractory and Sodium bicarb is not improving his acidosis stopped sodium bicarbonate started potassium citrate (3) Acute diarrhea: Plan: foul-smelling stool at time of admission stool biofire negative c diff x 2 both negative respiratory biofire including COVID negative intestinal/colonic ischemia was suspected as cause seen by gen surg and GI earlier in the stay - conservative, medical management was advised with antibiotics, etc he is now back to low fiber diet - appetite finally improving with remeron he is having frequent, small, mucous-filled loose stools which led to rectal tube placement (he has severe skin breakdown in the buttocks area) repeat c diff today -- negative monitor output (4) Acute kidney injury superimposed on chronic kidney disease: Plan: baseline Cr ~1.4 (02/2023) likely had sepsis associated ATN - present on admission no signs of obstruction on CT at time of admission BRAINNA resolved Cr has been very stable for several days at his usual baseline BMP am (5) Hypertrophic cardiomyopathy: Plan: follows with [facility] is back on meto succ albeit at lower dose than typical for him received COPIOUS hydration earlier in the stay admission weight was 86kg now ~100 kg has ongoing edema of legs and severe scrotal edema - but these have improved with daily diuresis will give 20mg of IV lasix again today (6) CHB (complete heart block): Plan: s/p pacemaker placement in the past (7) Chronic kidney disease, stage III (moderate): Plan: baseline Cr ~1.4 baseline CrCl about 45 (8) Pseudo-obstruction of colon: Plan: chronic [place]'s previously seen by both GI & gen surg for this on prior admissions see #1 above (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, managed as type 2: Plan: BSGs ac/hs novolog SSI control satisfactory (11) Status post placement of cardiac pacemaker: (12) Hypertension: Plan: meto succ has been resumed in arlet of hydralazine I started aldactone 25mg daily - this may help some fluid issues and raise his K level as well titrate to 50mg daily (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: Plan: cont flomax cont fung (14) Acute metabolic encephalopathy: Plan: 2nd to severe sepsis, acidosis, etc resolved mental status back to baseline (15) Thrombocytopenia: Plan: likely due to sepsis resolved (16) DVT prophylaxis: Plan: heparin 5000 BID (17) Hypomagnesemia: Plan: severe 2nd to poor oral intake 2nd to diarrhea/GI losses 2nd lasix low again today from diarrhea & lasix - give 3 grams of mag sulfate x 1 repeat level am (18) Hypokalemia: Plan: 2nd to loose stool 2nd to diuretics 2nd to poor oral intake cont to replace cont aldactone - titrate to 50mg daily cont potassium citrate 40meq TID (this will help bicarbonate level as well) repeat BMP with mag in AM (19) Spinal stenosis: Plan: lumbar SEVERE 2021 MRI showed 1-2mm of AP diameter at L4-L5 on that study he has back pain from this he has significant ambulatory dysfunction from this cont tylenol 1gm TID scheduled voltaren gel 4gm QID to back sprinkle in additional pain meds, if needed pain has improved (20) Hyperchloremic metabolic acidosis: Plan: 2nd to frequent loose stool stopped Na bicarb tabs started potassium citrate 40meq TID bicarb level finally improving Plan updated pt's brother Miguel by phone this evening due to poor appetite and ?depression I started remeron 7.5mg HS on 04/03/23 this has helped with appetite requested palliative care consultation given chronic FTT, acute worsening of such, anorexia, poor functional status and ongoing generalized decline, etc goals of care will be important moving forward back to [facility] hopefully early this week Admission and Anticipated Discharge Date Admission Date: March 25, 2023 Subjective no new issues overnight resting comfortably when I came to see him denies any complaints eating fair - no change stool in rectal tube bag - mild only per nursing buttock skin breakdown remains Review of Systems Review of Systems: cv - denies chest pain pulm - denies dyspnea GI - denies abd pain or N/V Physical Exam Physical Exam: gen - NAD, resting comfortably in bed mouth - MMM neck - no JVD heart - RRR, s1 s2, 1/6 MANOLO LSB lungs - CTA b/l; no rales or wheezes abd - mild distension only; BS+, nontender; no HSM ext - <1+ edema b/l, pulses 2+ b/l - scrotum - mod edema - improved today psych - awake/alert/oriented to person only Results & Data Results & Data Vital Signs (Past 12 Hours) Vital Signs Temp Pulse Pulse Resp BP BP Pulse Ox 04/08/23 16:09 36.6 C 58 L 20 163/88 H 98 04/08/23 10:47 36.8 C 61 18 158/87 H 99 04/08/23 08:00 57 L 04/08/23 08:00 04/08/23 07:35 37.0 C 71 20 178/87 H 97 O2 Del Method 04/08/23 16:09 Room Air 04/08/23 10:47 Room Air 04/08/23 08:00 04/08/23 08:00 Room Air 04/08/23 07:35 Room Air Laboratory Results Laboratory Results - last 24 hr 04/07/23 04/08/23 04/08/23 20:26 00:30 07:39 Sodium Potassium Chloride Carbon Dioxide Anion Gap BUN Creatinine Est Cr Clr Drug Dosing Est GFR ( Amer) Est GFR (Non-Af Amer) BUN/Creatinine Ratio Glucose POC Glucose 157 H 116 H Calcium Magnesium Stl C. diff Tox B Gene Negative Cdiff Gene 04/08/23 04/08/23 04/08/23 08:45 11:11 16:27 Sodium 140 Potassium 3.4 L Chloride 117 H Carbon Dioxide 16 L Anion Gap 7 BUN 17 Creatinine 1.24 Est Cr Clr Drug Dosing 54.0 Est GFR ( Amer) 63.7 Est GFR (Non-Af Amer) 54.9 BUN/Creatinine Ratio 13.7 Glucose 115 H POC Glucose 177 H 132 H Calcium 8.5 L Magnesium 1.5 L PG Care Time/CCT Total # of Minutes Spent Total Time Spent with Patient: Total time spent is greater than 50% in coordination of care (as documented) at patient's floor/unit and/or counseling patient: Coding Level of Care Code 08023 SUB INP/OBS CARE 2/35MIN Diagnoses Severe sepsis A41.9; R65.20 Elevated lactic acid level R79.89 Acute diarrhea R19.7 Acute kidney injury superimposed on chronic kidney disease N17.9; N18.9 Hypertrophic cardiomyopathy I42.2 CHB (complete heart block) I44.2 Chronic kidney disease, stage III (moderate) N18.30 Pseudo-obstruction of colon K59.81 [place] syndrome K59.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
[2023-04-08] MEDS: TAMSULOSIN HCL 0.4 MG CAP PO SCH (19:17)
[2023-04-09 06:22] LABS: BUN Creatinine Ratio 15.9 (10-20); Calcium 8.4 mg/dl (8.6-10.3); Creatinine Clr Calc Pharmacy 59.2 ml/min; Est GFR (African American) 71.3 ml/min; Est GFR (Non-African American) 61.5 ml/min; Magnesium 1.7 mg/dl (1.7-2.4); Potassium 3.8 mmol/L (3.5-5.1)
[2023-04-09] MEDS ORDERED: FUROSEMIDE INJ 20 MG/2 ML VIAL IV ONE (09:15)
[2023-04-09] MEDS: POTASSIUM CITRATE 10 MEQ TAB PO SCH ×2 (10:24→19:22)
[2023-04-09] MEDS: ACETAMINOPHEN 500 MG TAB PO SCH ×3 (10:24→19:20)
[2023-04-09] MEDS: METOPROLOL SUCC 25MG EXT REL TAB PO SCH (10:25)
[2023-04-09] MEDS: SPIRONOLACTONE 25 MG TAB PO SCH (10:25)
[2023-04-09] MEDS: MAGNESIUM CHLORIDE W/CALCIUM 64MG DELAYED REL TAB PO SCH ×2 (10:25→19:25)
[2023-04-09] MEDS: allopurinoL 300 MG TAB PO SCH (10:25)
[2023-04-09] MEDS: ADVANCED PROBIOTIC 1250 MG CAPSULE PO SCH (10:25)
[2023-04-09] MEDS: HEPARIN SOD 5,000 UNIT/0.5 ML VIAL SQ SCH ×2 (10:25→19:24)
[2023-04-09] MEDS: DICLOFENAC SOD 1% GEL 100 GM TUBE EXT SCH ×4 (10:25→19:20)
[2023-04-09] MEDS: INSULIN ASPART PER UNIT CHARGE SC SCH ×4 (10:29→20:54)
[2023-04-09] MEDS: MAGNESIUM SULFATE / D5W 1 GM/100 ML BAG IV SCH ×2 (10:29→13:47)
[2023-04-09] MEDS: BUTT PASTE (ZINC OXIDE 16%) 171 APPLN/57 GM JAR EXT SCH (13:17)
[2023-04-09] MEDS: MIRTAZAPINE TAB 15 MG TAB PO SCH (19:21)
[2023-04-09] MEDS: TAMSULOSIN HCL 0.4 MG CAP PO SCH (19:24)
--- NOTE | 2023-04-09 20:17 | Hospitalist Progress Note ---
Date of Service April 09, 2023 Assessment & Plan (1) Severe sepsis: Plan: present on admission - resolved source - intra-abdominal -->ischemic colitis? work-up at admission: stool Biofire negative c diff x 2 negative respiratory Biofire negative cxr without obvious pneumonia u/a mildly dirty but no bacteria or WBCs on microscopy blood cultures negative he improved with supportive care measures, bowel rest, IV fluids, IV abx, and time completed a course of zosyn - about 10-11 days completed 3 more days of augmentin all abx are off (2) Elevated lactic acid level: Plan: severe at time of admission 2nd to #1 resolved multifactorial causes - massive dehydration, severe sepsis, suspected intestinal ischemia now with hyperchloremic met acidosis likely from diarrhea his hypokalemia has been refractory and Sodium bicarb is not improving his acidosis stopped sodium bicarbonate started potassium citrate (3) Acute diarrhea: Plan: foul-smelling stool at time of admission stool biofire negative c diff x 2 both negative respiratory biofire including COVID negative intestinal/colonic ischemia was suspected as cause seen by gen surg and GI earlier in the stay - conservative, medical management was advised with antibiotics, etc he is now back to low fiber diet - appetite finally improving with remeron he is having frequent, small, mucous-filled loose stools which led to rectal tube placement (he has severe skin breakdown in the buttocks area) repeat c diff today -- negative monitor output stop rectal tube tomorrow AM (4) Acute kidney injury superimposed on chronic kidney disease: Plan: baseline Cr ~1.4 (02/2023) likely had sepsis associated ATN - present on admission no signs of obstruction on CT at time of admission BRIANNA resolved Cr again stable today BMP am (5) Hypertrophic cardiomyopathy: Plan: follows with [facility] is back on meto succ albeit at lower dose than typical for him received COPIOUS hydration earlier in the stay admission weight was 86kg now ~100 kg has ongoing edema of legs and severe scrotal edema - but these have improved with daily diuresis will give 20mg of IV lasix again today cont aldactone (6) CHB (complete heart block): Plan: s/p pacemaker placement in the past ?a.fib on monitoring the last few days; can't find h/o such in the record obtain pacer interrogation (7) Chronic kidney disease, stage III (moderate): Plan: baseline Cr ~1.4 baseline CrCl about 45 (8) Pseudo-obstruction of colon: Plan: chronic [place]'s previously seen by both GI & gen surg for this on prior admissions see #1 above (9) [place] syndrome: Plan: as above (10) Diabetes 1.5, managed as type 2: Plan: BSGs ac/hs novolog SSI control satisfactory (11) Status post placement of cardiac pacemaker: Plan: obtain interrogation tomorrow (12) Hypertension: Plan: meto succ has been resumed in arlet of hydralazine I started aldactone 25mg daily - this may help some fluid issues and raise his K level as well titrated to 50mg daily BPs improved (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: Plan: cont flomax cont fung pull fung once scrotal edema is improved and buttock skin breakdown is better (14) Acute metabolic encephalopathy: Plan: 2nd to severe sepsis, acidosis, etc resolved mental status back to baseline (15) Thrombocytopenia: Plan: likely due to sepsis resolved (16) DVT prophylaxis: Plan: heparin 5000 BID (17) Hypomagnesemia: Plan: severe 2nd to poor oral intake 2nd to diarrhea/GI losses 2nd lasix improved/stable today cont PO supplementation (18) Hypokalemia: Plan: 2nd to loose stool 2nd to diuretics 2nd to poor oral intake stable today will need to start backing down the K citrate supplement cont aldactone repeat BMP with mag in AM (19) Spinal stenosis: Plan: lumbar SEVERE 2021 MRI showed 1-2mm of AP diameter at L4-L5 on that study he has back pain from this he has significant ambulatory dysfunction from this cont tylenol 1gm TID scheduled voltaren gel 4gm QID to back sprinkle in additional pain meds, if needed pain has improved (20) Hyperchloremic metabolic acidosis: Plan: 2nd to frequent loose stool stopped Na bicarb tabs started potassium citrate 40meq TID bicarb improving nicely Plan updated pt's brother Miguel by phone yesterday evening due to poor appetite and ?depression I started remeron 7.5mg HS on 04/03/23 this has helped with appetite requested palliative care consultation given chronic FTT, acute worsening of such, anorexia, poor functional status and ongoing generalized decline, etc goals of care will be important moving forward back to [facility] hopefully early this week Admission and Anticipated Discharge Date Admission Date: March 25, 2023 Subjective tele - pacing, a.fib, zenaida pt resting in bed comfortably no new complaints rectal tube still in place brown stool in bag - no melena Review of Systems Review of Systems: cv - no pain abd - no pain or nausea pulm - no dyspnea Physical Exam Physical Exam: gen - NAD, resting comfortably in bed, pleasant confusion (baseline) mouth - MMM neck - no JVD heart - RRR, s1 s2, 1/6 MANOLO LSB lungs - CTA b/l; no rales or wheezes abd - mild distension only; BS+, nontender; no HSM ext - no edema b/l, pulses 2+ b/l - scrotum - mild edema - much improved psych - awake/alert/oriented to person only Results & Data Results & Data Vital Signs (Past 12 Hours) Vital Signs Temp Pulse Resp BP Pulse Ox O2 Del Method 04/09/23 19:41 36.9 C 54 L 19 144/70 H 96 Room Air 04/09/23 15:37 36.5 C 55 L 20 153/94 H 98 Room Air 04/09/23 15:35 36.8 C 82 22 134/85 96 Room Air 04/09/23 11:30 37.0 C 55 L 20 157/77 H 98 Room Air Laboratory Results Laboratory Results - last 24 hr 04/08/23 04/09/23 04/09/23 20:41 05:29 07:51 Sodium 141 Potassium 3.8 Chloride 116 H Carbon Dioxide 19 L Anion Gap 6 BUN 18 Creatinine 1.13 Est Cr Clr Drug Dosing 59.2 Est GFR ( Amer) 71.3 Est GFR (Non-Af Amer) 61.5 BUN/Creatinine Ratio 15.9 Glucose 96 POC Glucose 97 115 H Calcium 8.4 L Magnesium 1.7 04/09/23 04/09/23 11:20 17:50 Sodium Potassium Chloride Carbon Dioxide Anion Gap BUN Creatinine Est Cr Clr Drug Dosing Est GFR ( Amer) Est GFR (Non-Af Amer) BUN/Creatinine Ratio Glucose POC Glucose 169 H 131 H Calcium Magnesium PG Care Time/CCT Total # of Minutes Spent Total Time Spent with Patient: Total time spent is greater than 50% in coordination of care (as documented) at patient's floor/unit and/or counseling patient: Coding Level of Care Code 14669 SUB INP/OBS CARE 2/35MIN Diagnoses Severe sepsis A41.9; R65.20 Elevated lactic acid level R79.89 Acute diarrhea R19.7 Acute kidney injury superimposed on chronic kidney disease N17.9; N18.9 Hypertrophic cardiomyopathy I42.2 CHB (complete heart block) I44.2 Chronic kidney disease, stage III (moderate) N18.30 Pseudo-obstruction of colon K59.81 [place] syndrome K59.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
[2023-04-10] MEDS: POTASSIUM CITRATE 10 MEQ TAB PO SCH (06:43)
[2023-04-10 06:55] LABS: BUN Creatinine Ratio 13.8 (10-20); Calcium 8.6 mg/dl (8.6-10.3); Creatinine Clr Calc Pharmacy 45.8 ml/min; Est GFR (African American) 52.7 ml/min; Est GFR (Non-African American) 45.5 ml/min; Magnesium 1.7 mg/dl (1.7-2.4); Potassium 4.1 mmol/L (3.5-5.1)
[2023-04-10] MEDS: SPIRONOLACTONE 25 MG TAB PO SCH (08:22)
[2023-04-10] MEDS: allopurinoL 300 MG TAB PO SCH (08:22)
[2023-04-10] MEDS: MAGNESIUM CHLORIDE W/CALCIUM 64MG DELAYED REL TAB PO SCH ×2 (08:22→21:59)
[2023-04-10] MEDS: HEPARIN SOD 5,000 UNIT/0.5 ML VIAL SQ SCH ×2 (08:22→21:59)
[2023-04-10] MEDS: METOPROLOL SUCC 25MG EXT REL TAB PO SCH (08:23)
[2023-04-10] MEDS: ADVANCED PROBIOTIC 1250 MG CAPSULE PO SCH (08:23)
[2023-04-10] MEDS: INSULIN ASPART PER UNIT CHARGE SC SCH ×4 (08:30→21:33)
[2023-04-10] MEDS: DICLOFENAC SOD 1% GEL 100 GM TUBE EXT SCH ×4 (09:30→21:59)
[2023-04-10] MEDS: ACETAMINOPHEN 500 MG TAB PO SCH ×3 (09:30→21:58)
[2023-04-10] MEDS: BUTT PASTE (ZINC OXIDE 16%) 171 APPLN/57 GM JAR EXT SCH (12:45)
--- NOTE | 2023-04-10 20:44 | Hospitalist Progress Note ---
Date of Service April 10, 2023 Assessment & Plan (1) Acute diarrhea: Plan: foul-smelling stool at time of admission stool biofire negative c diff x 2 both negative respiratory biofire including COVID negative intestinal/colonic ischemia was suspected as cause seen by gen surg and GI earlier in the stay - conservative, medical management was advised with antibiotics, etc completed 10+ days of broad-spectrum IV/PO abx he is now back to low fiber diet - appetite improved with remeron albeit it is modest improvement he is having frequent, small, mucous-filled loose stools which led to rectal tube placement (he has severe skin breakdown in the buttocks area) last week repeat c diff again was negative rectal tube removed today the mucous-filled stool continues will contact [facility] about what to do about this issue in light of chronic Cece's, etc suspect ongoing colonic irritation causing the mucous production (2) Severe sepsis: Plan: present on admission - resolved source - intra-abdominal -->ischemic colitis? work-up at admission: stool Biofire negative c diff x 2 negative respiratory Biofire negative cxr without obvious pneumonia u/a mildly dirty but no bacteria or WBCs on microscopy blood cultures negative he improved with supportive care measures, bowel rest, IV fluids, IV abx, and time completed a course of zosyn - about 10-11 days completed 3 more days of augmentin all abx are off (3) Elevated lactic acid level: Plan: severe at time of admission 2nd to #1 resolved multifactorial causes - massive dehydration, severe sepsis, suspected intestinal ischemia now with hyperchloremic met acidosis likely from diarrhea this is slowly improving and, in fact, labs today are the best they have been in quite some time (4) Acute kidney injury superimposed on chronic kidney disease: Plan: baseline Cr ~1.4 (02/2023) likely had sepsis associated ATN - present on admission no signs of obstruction on CT at time of admission BRIANNA resolved BMP am (5) Hypertrophic cardiomyopathy: Plan: follows with [facility] is back on meto succ albeit at lower dose than typical for him received COPIOUS hydration earlier in the stay admission weight was 86kg now ~100 kg has ongoing edema of legs and severe scrotal edema - but these have improved with daily diuresis cont aldactone cont intermittent lasix (need to be careful with such in light of his HCOM) (6) CHB (complete heart block): Plan: s/p pacemaker placement in the past ?a.fib on monitoring the last few days; can't find h/o such in the record obtain pacer interrogation - report pending (7) Chronic kidney disease, stage III (moderate): Plan: baseline Cr ~1.4 baseline CrCl about 45 Cr today 1.45 (8) Pseudo-obstruction of colon: Plan: chronic [place]'s previously seen by both GI & gen surg for this on prior admissions see above (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, managed as type 2: Plan: BSGs ac/hs novolog SSI control satisfactory (11) Status post placement of cardiac pacemaker: Plan: obtain interrogation as noted above (12) Hypertension: Plan: meto succ has been resumed in arlet of hydralazine I started aldactone 25mg daily - this may help some fluid issues and raise his K level as well titrated to 50mg daily BPs improved and aldactone helping with edema and low K (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: Plan: cont flomax cont fung pull fung once scrotal edema is improved and buttock skin breakdown is better but suspect he will need the fung upon transfer back to [facility] (14) Acute metabolic encephalopathy: Plan: 2nd to severe sepsis, acidosis, etc resolved mental status back to baseline (15) Thrombocytopenia: Plan: likely due to sepsis resolved (16) DVT prophylaxis: Plan: heparin 5000 BID (17) Hypomagnesemia: Plan: severe 2nd to poor oral intake 2nd to diarrhea/GI losses 2nd lasix stable today cont PO supplementation repeat level am (18) Hypokalemia: Plan: 2nd to loose stool 2nd to diuretics 2nd to poor oral intake stable today will need to start backing down the K citrate supplement - thus, cut back to 20meq daily of potassium citrate cont aldactone repeat BMP with mag in AM (19) Spinal stenosis: Plan: lumbar SEVERE 2021 MRI showed 1-2mm of AP diameter at L4-L5 on that study he has back pain from this he has significant ambulatory dysfunction from this cont tylenol 1gm TID scheduled voltaren gel 4gm QID to back sprinkle in additional pain meds, if needed pain has improved he has not mentioned his back in several days (20) Hyperchloremic metabolic acidosis: Plan: 2nd to frequent loose stool stopped Na bicarb tabs started potassium citrate 40meq TID bicarb improving nicely will cut back the supplement starting tomorrow - 20meq daily Plan updated pt's brother Miguel by phone this evening discussed his brother's poor prognosis we both agree that he is at high risk of recurrent illness and ongoing deterioration in the past Miguel has been in support of limited interventions, etc he remains DNR/DNI if time allows complete POLST before discharge due to poor appetite and ?depression I started remeron 7.5mg HS on 04/03/23 this has helped modestly with appetite requested palliative care consultation early in the stay given chronic FTT, acute worsening of such, anorexia, poor functional status and ongoing generalized decline, etc may need to request that consult again dispo - [facility] - next 48 hours? of note - correspondence sent to [facility] to seek assistance with the ongoing leaking of mucous stool from his rectum Admission and Anticipated Discharge Date Admission Date: March 25, 2023 Subjective tele - pacing. underlying a.fib. during the visit he was resting in bed, c/o feeling cold and asking for blankets. denied any abd pain. no nausea or emesis. per staff only eating <25% of meals. rectal tube removed this morning. he is constantly oozing a mucous-filled stool - staff constantly having to clean him up. no blood. there is brown stool at times. no melena. Review of Systems Review of Systems: cv - no chest pain pulm - no dyspnea GI - denies pain Physical Exam Physical Exam: gen - NAD, resting comfortably in bed mouth - MMM neck - no JVD heart - RRR, s1 s2, 1/6 MANOLO LSB lungs - CTA b/l; no rales or wheezes abd - mild distension only; BS+, nontender; no HSM ext - no edema b/l, pulses 2+ b/l - scrotum - mild edema; slowly improving day to day psych - awake/alert/oriented to person only but did recall his brother had visited earlier in the day Results & Data Results & Data Vital Signs (Past 12 Hours) Vital Signs Temp Pulse Resp BP BP Pulse Ox O2 Del Method 04/10/23 16:07 36.8 C 80 19 134/79 98 Room Air 04/10/23 15:12 Room Air 04/10/23 11:26 36.7 C 58 L 19 172/86 H 100 Room Air Laboratory Results Laboratory Results - last 48 hr 04/09/23 04/09/23 04/09/23 11:20 17:50 20:51 Sodium Potassium Chloride Carbon Dioxide Anion Gap BUN Creatinine Est Cr Clr Drug Dosing Est GFR ( Amer) Est GFR (Non-Af Amer) BUN/Creatinine Ratio Glucose POC Glucose 169 H 131 H 145 H Calcium Phosphorus Magnesium 04/10/23 04/10/23 04/10/23 06:00 07:46 12:02 Sodium 140 Potassium 4.1 Chloride 113 H Carbon Dioxide 22 Anion Gap 5 BUN 20 Creatinine 1.45 H D Est Cr Clr Drug Dosing 45.8 Est GFR ( Amer) 52.7 Est GFR (Non-Af Amer) 45.5 BUN/Creatinine Ratio 13.8 Glucose 147 H POC Glucose 153 H 155 H Calcium 8.6 Phosphorus Magnesium 1.7 PG Care Time/CCT Total # of Minutes Spent Total Time Spent with Patient: Total time spent is greater than 50% in coordination of care (as documented) at patient's floor/unit and/or counseling patient: Coding Level of Care Code 80554 SUB INP/OBS CARE 3/50MIN Diagnoses Acute diarrhea R19.7 Severe sepsis A41.9; R65.20 Elevated lactic acid level R79.89 Acute kidney injury superimposed on chronic kidney disease N17.9; N18.9 Hypertrophic cardiomyopathy I42.2 CHB (complete heart block) I44.2 Chronic kidney disease, stage III (moderate) N18.30 Pseudo-obstruction of colon K59.81 [place] syndrome K59.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
[2023-04-10] MEDS: TAMSULOSIN HCL 0.4 MG CAP PO SCH (21:57)
[2023-04-10] MEDS: MIRTAZAPINE TAB 15 MG TAB PO SCH (21:58)
[2023-04-11 06:53] LABS: BUN Creatinine Ratio 17.3 (10-20); Calcium 8.6 mg/dl (8.6-10.3); Creatinine Clr Calc Pharmacy 52.3 ml/min; Est GFR (African American) 61.9 ml/min; Est GFR (Non-African American) 53.4 ml/min; Magnesium 1.4 mg/dl (1.7-2.4); Phosphorus 3.4 mg/dl (2.5-4.9); Potassium 3.7 mmol/L (3.5-5.1)
[2023-04-11] MEDS: DICLOFENAC SOD 1% GEL 100 GM TUBE EXT SCH ×2 (08:56→12:39)
[2023-04-11] MEDS: SPIRONOLACTONE 25 MG TAB PO SCH (08:56)
[2023-04-11] MEDS: ADVANCED PROBIOTIC 1250 MG CAPSULE PO SCH (08:56)
[2023-04-11] MEDS: MAGNESIUM CHLORIDE W/CALCIUM 64MG DELAYED REL TAB PO SCH (08:56)
[2023-04-11] MEDS: ACETAMINOPHEN 500 MG TAB PO SCH (08:56)
[2023-04-11] MEDS: METOPROLOL SUCC 25MG EXT REL TAB PO SCH (08:56)
[2023-04-11] MEDS: allopurinoL 300 MG TAB PO SCH (08:57)
[2023-04-11] MEDS: HEPARIN SOD 5,000 UNIT/0.5 ML VIAL SQ SCH (08:57)
[2023-04-11] MEDS ORDERED: POTASSIUM CITRATE 10 MEQ TAB PO SCH ×2 (09:00)
[2023-04-11] MEDS: INSULIN ASPART PER UNIT CHARGE SC SCH ×2 (09:05→12:54)
[2023-04-11] MEDS: MAGNESIUM SULFATE / D5W 1 GM/100 ML BAG IV SCH ×2 (09:05→11:24)
--- NOTE | 2023-04-11 11:09 | Communication Note ---
Date of Service: April 11, 2023 GI was asked to re-evaluate due to patient continuously passing clear mucous and some stool the past few days. I discussed the case with Dr. Mc who advised on plan. Would recommend starting a regular bowel regimen to help keep bowels moving in case this is related to some underlying fecal retention. will start miralax 17gm once daily.
[2023-04-11] MEDS ORDERED: POLYETHYLENE (MIRALAX) 17 GM PACK PO SCH (12:00)
[2023-04-11] MEDS: BUTT PASTE (ZINC OXIDE 16%) 171 APPLN/57 GM JAR EXT SCH (12:37)
--- NOTE | 2023-04-11 13:25 | Discharge Summary ---
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 The patient is referred from [facility] due to a persistently elevated temperature, declining blood pressure, signs of dehydration, and diarrhea. Workup in the emergency department suggestive of sepsis due to UTI, with temperature 38.5, declining SBP into the lower 80s, and increasing heart rate. Significant laboratories: Creatinine 2.94, glucose 129, anion gap 16, lactate 5.9. From the ED the patient received the following: Normal saline 1 L boluses x 4, Zosyn 4.5 g IV, and Tylenol 1 g IV. Principal Diagnosis Severe sepsis possibly due to acute ischemic vs infectious colitis Discharge Data Allergies Allergy/AdvReac Type Severity Reaction Status Date / Time No Known Allergies Allergy ` Verified 03/24/23 20:43 Consultations 03/25/23 00:34 ED Decision to Admit Stat 03/25/23 09:49 Consult General Surgery Routine 03/25/23 14:39 Consult Gastroenterology Routine 04/05/23 09:35 Consult Palliative Care Routine Ordered Studies 03/24/23 21:57 CT abd pelvis wo con Stat 03/27/23 10:50 US duplex mesenteric Routine Abdomen/Pelvis CT 03/24/23 21:57 Exam(s): CT ABDOMEN + PELVIS Without Contrast EXAM: CT Abdomen and Pelvis Without Intravenous Contrast CLINICAL HISTORY: Reason for exam: ab pain, fever, dementia, UTI. TECHNIQUE: Axial computed tomography images of the abdomen and pelvis without intravenous contrast. CTDI is 25.55 mGy and DLP is 1381.97 mGy-cm. Automated exposure control was utilized for the study. A dose lowering technique was utilized adhering to the principles of ALARA. COMPARISON: No relevant prior studies available. FINDINGS: Lung bases: Unremarkable. No mass. No consolidation. Heart: Cardiomegaly. ABDOMEN: Liver: Unremarkable. Gallbladder and bile ducts: Unremarkable. No calcified stones. No ductal dilation. Pancreas: Unremarkable. No ductal dilation. Spleen: Unremarkable. No splenomegaly. Adrenals: Unremarkable. No mass. Kidneys and ureters: Unremarkable. No hydronephrosis or nephrolithiasis. Stomach and bowel: Liquid stool in the colon, correlate the diarrheal disease. No obstruction. No mucosal thickening. PELVIS: Appendix: No findings to suggest acute appendicitis. Bladder: Unremarkable. No stones. Reproductive: Unremarkable as visualized. ABDOMEN and PELVIS: Intraperitoneal space: Unremarkable. No free air. No significant fluid collection. Bones/joints: Degenerative changes of the spine. No acute fracture. No dislocation. Soft tissues: Unremarkable. Vasculature: Atherosclerotic changes of the aorta. No abdominal aortic aneurysm. Lymph nodes: Unremarkable. No enlarged lymph nodes. Tubes, lines and devices: Pacemaker leads. IMPRESSION: 1. No hydronephrosis or nephrolithiasis. 2. Liquid stool in the colon, correlate the diarrheal disease. Electronically signed by: Richard Mera MD 03/25/23 01:02 AM Chest X-Ray 03/25/23 08:28 XR chest 1V portable CLINICAL HISTORY: tachypnea, septic shock COMPARISON STUDY: Chest radiograph July 25, 2021. FINDINGS: Low lung volumes are unchanged. There is no pneumothorax or pleural effusion. No consolidation is identified to suggest pneumonia. Cardiomegaly is unchanged. No evidence for overt pulmonary edema. There is pulmonary vascular congestion. IMPRESSION: 1. Low lung volumes. No consolidation to suggest pneumonia. 2. Cardiomegaly with pulmonary vascular congestion. ACT 112: Negative or not required by law. Electronically signed by: Yosef Still M.D. 03/25/2023 9:00 AM KUB X-Ray 03/25/23 09:05 KUB CLINICAL HISTORY: Severe abdominal distention. Sepsis. COMPARISON STUDY: [facility] September 15, 2021. CT of the abdomen and pelvis March 24, 2023. FINDINGS: No dilated small bowel loops are identified. Moderate distention of the colon is similar to prior CT of March 24, 2023. This is also similar to multiple additional exams. No radiographic evidence for pneumatosis. No evidence for free air on supine exam. IMPRESSION: No significant change in moderate colonic dilatation, shown on multiple prior studies. This may reflect colonic pseudoobstruction/ileus. ACT 112: Negative or not required by law. Electronically signed by: Yosef Still M.D. 03/25/2023 10:01 AM KUB X-Ray 03/25/23 11:33 KUB CLINICAL HISTORY: ngt placement COMPARISON STUDY: CT of the abdomen and pelvis March 24, 2022. KUB performed earlier today. FINDINGS: Left subclavian pacer leads are partially imaged. Tip of nasogastric tube is within the gastric fundus. Visualized portions of the distended colon are similar in appearance. IMPRESSION: 1. Tip of nasogastric tube within the gastric fundus. 2. Colonic dilatation, better depicted on prior KUB. ACT 112: Negative or not required by law. Electronically signed by: Yosef Still M.D. 03/25/2023 12:38 PM Chest X-Ray 03/25/23 17:54 XR chest 1V portable CLINICAL HISTORY: check NG placement COMPARISON STUDY: KUB March 25, 2023 at 12:26 PM. FINDINGS: The tip of the nasogastric tube projects over the right lower lobe. This is likely within a right lower lobe bronchus. Left subclavian pacer is incidentally noted. Dilatation of visualized portions of the colon is again noted. IMPRESSION: 1. Malpositioned nasogastric tube within a right lower lobe bronchus. The tube should be repositioned. Findings discussed with Dr. Sales at time of dictation. 2. Colonic dilatation, better depicted on prior KUB. ACT 112: Negative or not required by law. Electronically signed by: Yosef Still M.D. 03/25/2023 7:15 PM Mesenteric US 03/27/23 10:50 US duplex mesenteric CLINICAL HISTORY: Suspected ischemic colitis ?high grade stenosis TECHNIQUE: Real-time grayscale, duplex, and Doppler images were obtained of the abdomen. Comparison: None available at the time of this dictation. FINDINGS/IMPRESSION: Highly limited exam due to overlying bowel gas and possibly body habitus. Aorta and other vessels cannot be visualized. ACT 112: Negative or not required by law. Electronically signed by: Adonay Elizabeth M.D. 03/27/2023 11:41 AM KUB X-Ray 03/31/23 07:00 KUB CLINICAL HISTORY: Cece syndrome. FINDINGS: 2 AP, portable, supine abdominal radiograph*compared to study dated 03/25/2023 and correlated with abdominal CT dated 03/24/2023. There is persistent gaseous distention of the colon which measures up to 7 cm in diameter. There is only mild gaseous distention of the small bowel loops. There is no radiographic evidence of high-grade small bowel obstruction. No evidence of intraperitoneal free air is seen on these supine images. There are no abnormal abdominal calcifications. The enteric tube has been from previous. The skeletal structures are osteopenic and appear intact. There is moderate lumbosacral spondylosis. The heart is enlarged and pacemaker leads are in place. IMPRESSION: 1. There is persistent gaseous distention of the colon. This could represent colonic pseudoobstruction or ileus as clinically suspected. A distal colonic obstruction would be impossible to exclude, and clinical correlation will be required. 2. There is only mild gaseous distention of the small bowel loops. Electronically signed by: Nasim Clark M.D. 03/31/2023 11:46 AM 04/07/23 06:04 04/11/23 06:03 Hospital Course (1) Acute diarrhea: Presented with severe sepsis, acute diarrhea, BRIANNA. foul-smelling stool at time of admission stool biofire negative c diff x 2 both negative respiratory biofire including COVID negative intestinal/colonic ischemia was suspected as cause general surgery and GI consulted - conservative, medical management was advised with antibiotics, etc completed 10+ days of broad-spectrum IV/PO abx he is now back to low fiber diet - appetite improved with remeron he was having frequent, small, mucous-filled loose stools which led to rectal tube placement because of skin breakdown in the buttocks area last week repeat c diff again was negative rectal tube removed and stool output much less, he states resolved today, corroborated by bedside RN. Ate entire breakfast tray. Denies any abdominal pain. continue probiotic and laxatives were stopped if persistent may need to decrease slow-mag, however chronic hypomagnesemia presents a challenge replaced with IV magnesium 04/11 AM to increase his stores (2) Severe sepsis: present on admission - resolved source - intra-abdominal -->ischemic colitis? work-up at admission: stool Biofire negative c diff x 2 negative respiratory Biofire negative cxr without obvious pneumonia u/a mildly dirty but no bacteria or WBCs on microscopy blood cultures negative he improved with supportive care measures, bowel rest, IV fluids, IV abx, and time completed a course of zosyn - about 10-11 days completed 3 more days of augmentin all abx are off (3) Elevated lactic acid level: severe at time of admission 2nd to #1 resolved multifactorial causes - massive dehydration, severe sepsis, suspected intestinal ischemia now with hyperchloremic metabolic acidosis likely from diarrhea this is slowly improving and, in fact, labs today are the best they have been in quite some time. Did not improve much on Na-bicarb but improved on potassium citrate Recommend BMP and mag check in 3-5 days - check K and renal function on potassium and spironolactone (4) Acute kidney injury superimposed on chronic kidney disease: baseline Cr ~1.4 (02/2023) likely had sepsis associated ATN - present on admission no signs of obstruction on CT at time of admission BRIANNA resolved (5) Hypertrophic cardiomyopathy: follows with [facility] is back on meto succ albeit at lower dose than typical for him received COPIOUS hydration earlier in the stay admission weight was 86kg now ~100 kg has ongoing edema of legs and severe scrotal edema - but these have improved with daily diuresis cont aldactone cont intermittent lasix as needed (need to be careful with such in light of his HCOM) (6) CHB (complete heart block): s/p pacemaker placement in the past some transient irregularity noted on tele past few days. potential transient afib. (7) Chronic kidney disease, stage III (moderate): baseline Cr ~1.4 baseline CrCl about 45 (8) Pseudo-obstruction of colon: chronic Ochopee's previously seen by both GI & gen surg for this on prior admissions see above (9) Ochopee syndrome: as above (10) Diabetes 1.5, managed as type 2: resume low dose glargine and short acting insulin control satisfactory (11) Status post placement of cardiac pacemaker: (12) Hypertension: metoprolol succ has been resumed, but at lower dose than prior to admission in arlet of hydralazine I started aldactone 25mg daily - this may help some fluid issues and raise his K level as well titrated to 50mg daily BPs improved and aldactone helping with edema and low K (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: cont flomax cont fung pull fung once scrotal edema is improved and buttock skin breakdown is better but suspect he will need the fung upon transfer back to [facility] (14) Acute metabolic encephalopathy: 2nd to severe sepsis, acidosis, etc resolved mental status back to baseline (15) Thrombocytopenia: likely due to sepsis resolved (16) Hypomagnesemia: replaced intermittently IV, acute on chronic component cont PO supplementation - tolerating slow mag bid magnesium check next labs (17) Hypokalemia: 2nd to loose stool 2nd to diuretics 2nd to poor oral intake will need to start backing down the K citrate supplement - thus, cut back to 20meq daily of potassium citrate starting 04/11 cont aldactone repeat BMP with mag in 3-5 days (18) Spinal stenosis: lumbar SEVERE 2021 MRI showed 1-2mm of AP diameter at L4-L5 on that study he has back pain from this he has significant ambulatory dysfunction from this cont tylenol 1gm TID scheduled voltaren gel 4gm QID to back sprinkle in additional pain meds, if needed pain has improved he has not mentioned his back in several days (19) Hyperchloremic metabolic acidosis: 2nd to frequent loose stool stopped Na bicarb tabs improved potassium citrate 40meq TID bicarb improving nicely cut back the supplement starting tomorrow - 20meq daily now that diarrhea resolved Plan Per my colleague Dr. Sales: "updated pt's brother Miguel by phone 04/10 discussed his brother's poor prognosis we both agree that he is at high risk of recurrent illness and ongoing deterioration in the past Miugel has been in support of limited interventions, etc he remains DNR/DNI" due to poor appetite and ?depression started remeron 7.5mg HS on 04/03/23 this has helped modestly with appetite Total Time Total Time Spent Total Time Spent (In Minutes): I personally spent: 40 minutes today on clinical care activities coordinating care for discharge including: reviewing chart notes and vital signs reviewing labs discussion with healthcare economics consultant, bedside RN examining and counseling the patient writing orders documentation Discharge Plan Discharge Items Patient Disposition: [facility] Reason For Visit: SEPSIS DUE TO UTI, BRIANNA ON CKD, DEHYDRATION Discharge Diagnosis: sepsis, diarrhea Condition on Discharge: Fair Activity: Resume your previous activity Non-emergency contact: Primary Care Provider Call non-emergency contact if: you have any medication questions and your symptoms worsen Follow-up/Referrals: [facility] [Primary Care Provider] - Diet: Other - See Diet Comment Diet Comment: low fiber, diabetic / carb consistent Addtl Attending Provider Instructions: PT and OT evaluate and treat Discontinue fung catheter once scrotal/penile edema improved BMP and magnesium check 04/14/23 - on potassium citrate and aldactone, as well as slow-mag Heel floater / waffle boots Routine wound care perineal area / excoriations Consider hospice / comfort measures if worsens or fails to improve - we spoke with his brother Miguel who is open to this. Pending Studies at Discharge: No Stand-Alone Forms: My [facility] Skilled Items Patient informed of condition?: Yes DNR: Yes Discharge Level of Care: Skilled Communicable Disease: No Discharge Prognosis: Stable Lines: None Urinary Catheter: Yes Medications and DC Order Prescriptions: New Mag 64 64 mg Tablet,Delayed Release (Dr/Ec) 64 mg PO BID Qty: 0 0RF diclofenac sodium [Voltaren Arthritis Pain] 1 % Gel 4 g EXT QID Qty: 0 0RF Boudreauxs Butt Paste 16 % Ointment 1 applic EXT PRN Qty: 0 0RF spironolactone 25 mg Tablet 50 mg PO QAM Qty: 0 0RF potassium citrate 10 mEq (1,080 mg) Tablet Extended Release 20 meq PO QAM Qty: 0 0RF mirtazapine 15 mg Tablet 7.5 mg PO HS Qty: 0 0RF Advanced Probiotic 625 mg (10 billion cell) Capsule 2 cap PO DAILY Qty: 0 0RF metoprolol succinate 25 mg Tablet Extended Release 24 Hr 75 mg PO QAM Qty: 0 0RF Continued (DME) OneTouch Ultra Blue Test Strip Strip See Dose Instructions .ROUTE .MEDSUPPLY Qty: 100 6RF Dose Instruction: As directed Rx Instructions: test twice daily Dx:E11.9 ascorbic acid (vitamin C) 250 mg tablet 250 mg PO QAM isosorbide mononitrate 60 mg tablet extended release 24 hr 60 mg PO QAM ropinirole 1 mg tablet 1 mg PO QAM aspirin 81 mg tablet,chewable 81 mg PO QAM allopurinol 300 mg tablet 300 mg PO QAM atorvastatin 40 mg Tablet 40 mg PO HS Qty: 30 0RF cholecalciferol (vitamin D3) 25 mcg (1,000 unit) capsule 1,000 units PO QAM tamsulosin 0.4 mg capsule 0.4 mg PO QPM simethicone 125 mg Tablet,Chewable 125 mg PO Q6H PRN (Reason: GAS RELIEF) finasteride [Proscar] 5 mg Tablet 5 mg PO QAM Qty: 30 0RF cyanocobalamin (vitamin B-12) [Vitamin B-12] 1,000 mcg Tablet 1,000 mcg PO QAM insulin glargine [Lantus Solostar U-100 Insulin] 100 unit/mL (3 mL) insulin pen 5 unit SC QAM Qty: 0 0RF ABC Complete Senior 50 Plus 0.4 mg-300 mcg- 250 mcg Tablet 1 tab PO DAILY hydralazine 50 mg tablet 50 mg PO TID Rx Instructions: 0830,1230,1630 insulin aspart U-100 [Novolog FlexPen U-100 Insulin] 100 unit/mL (3 mL) insulin pen 2 unit SC WM acetaminophen 325 mg tablet 650 mg PO Q6 MDD 3g PRN (Reason: temp>100) acetaminophen 325 mg Tablet 650 mg PO Q6 MDD 3g PRN (Reason: Pain) menthol-zinc oxide [Calmoseptine] 0.44-20.6 % Ointment 1 applic TOPICAL QS Rx Instructions: apply to bilateral buttocks every shift for excoriation Discontinued metoprolol succinate 200 mg capsule,sprinkle,ER 24hr 200 mg PO QAM potassium chloride 20 mEq Tablet Extended Release 20 meq PO QAM bisacodyl 10 mg suppository 10 mg OH Q2D Qty: 12 0RF polyethylene glycol 3350 [Miralax] 17 gram powder in packet 17 g PO DAILY Qty: 30 0RF Senna Syrup 5 ml PO BID Discharge Orders: Discharge Order (Routine); Ordered 04/11/23 Ordered By: Nancy Garvin/Other Patient Handouts: A1C Admission Data Admit Date/Time: 03/25/23 00:56 Attending Provider: Nancy Delgado Admit Provider: Guanako Woodruff Primary Care Provider: [facility] Other Providers: Guanako Woodruff; Dona Fatima; [facility]; Olive Dey; Raquel Madden Coding Level of Care Code 05071 INP/OBS DISCH >30 MIN Diagnoses Acute diarrhea R19.7 Severe sepsis A41.9; R65.20 Elevated lactic acid level R79.89 Acute kidney injury superimposed on chronic kidney disease N17.9; N18.9 Hypertrophic cardiomyopathy I42.2 CHB (complete heart block) I44.2 Chronic kidney disease, stage III (moderate) N18.30 Pseudo-obstruction of colon K59.81 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
== END 2023-04-11 14:46 | DRG 871 ==
LOC: ED 20:13 → SUATTDRO 03-25 00:56 → EDINP 03-25 00:56 → 4W 03-25 03:45